=== PATIENT | male | born 1935 | race Caucasian/White ===

== ENCOUNTER → 2016-06-13 | Outpatient (CLI) | payer MEDICARE ==
[2016-06-13 15:07] LABS: Anisocytosis Moderate; CH 36.5; CHCM 33.4; HCT 40.3 % (39.0-53.0); HGB 13.4 gm/dL (13.0-17.5); Hypochromasia Slight; MCH 36.2 pg (25.0-35.0); MCHC 33.2 g/dL (31.0-37.0); MCV 109.1 fL (80.0-100.0); Macrocytosis Marked; Mean Platelet Volume 7.4; Poikilocytosis Slight; RDW 21.1 % (11.5-15.5); WBC 4.2 k/uL (3.8-10.6)
[2016-06-13 15:22] LABS: C Reactive Protein 5.3 mg/L (<10.0); Calcium 9.4 mg/dL (8.4-10.2); Total Bilirubin 0.7 mg/dL (0.2-1.3); Total Protein 6.7 g/dL (6.3-8.2)
[2016-06-13 15:23] LABS: Potassium 5.3 mmol/L (3.5-5.1)
[2016-06-13 15:52] LABS: Erythrocyte Sedimentation Rate 8 mm/hr (0-15)
[2016-06-14 14:06] LABS: Gliadin AB IgA, Deaminated 4 UNITS (<20); Gliadin AB IgG, Deaminated 2 UNITS (<20)
== END | disposition home or self-care (01) ==
LOC: LABWHC1 14:45
PROVIDERS: ATTEND Internal Medicine Gastroenterology
DX: R19.7 Diarrhea, unspecified (principal); R10.9 Unspecified abdominal pain
CPT/HCPCS: 36415; 80053; 83516; 85027; 85652; 86140

== ENCOUNTER 2016-08-02 07:16 | Inpatient (IN) | payer MEDICARE ==
[2016-08-02] MEDS ORDERED: SODIUM CHLORIDE 0.9% 1,000 ML IV STA ×2 (07:34→09:10)
[2016-08-02] MEDS ORDERED: PANTOPRAZOLE 40 MG/10 ML VIAL IVP STA (07:34)
[2016-08-02] MEDS ORDERED: ONDANSETRON 4 MG/2 ML VIAL IVP STA (07:34)
[2016-08-02] MEDS ORDERED: SODIUM CHLORIDE 0.9% 500 ML IV STA (07:34)
--- NOTE | 2016-08-02 07:41 | ED ---
General Adult HPI - General Chief complaint: GI Bleed Stated complaint: blood in stool Time Seen by Provider: 08/02/16 07:33 Source: patient, family, RN notes reviewed, old records reviewed Mode of arrival: wheelchair Limitations: no limitations - History of Present Illness Initial comments: This is a 80-year-old male to the ER for evaluation of GI bleed. Patient is not on blood thinners. Patient has history of diverticulosis. Patient states history of abdominal pain as well. Patient felt weak and lightheaded dizzy also if he would pass out. He has had 3-4 bloody bowel movements prior to ER arrival. Patient also complaining of epigastric abdominal pain. - Related Data Home Medications Medication Instructions Recorded Confirmed Allopurinol [Zyloprim] 300 mg PO HS 09/01/13 08/02/16 Hydroxyurea [Hydrea] 500 mg PO QID 09/01/13 08/02/16 hydrALAZINE HCL [Apresoline] 25 mg PO BID 09/01/13 08/02/16 traMADol HCl [Ultram] 50 mg PO Q8H PRN 04/04/15 08/02/16 Cholecalciferol [Vitamin D3] 2,000 unit PO DAILY 08/20/15 08/02/16 Aspirin 325 mg PO BID 08/02/16 08/02/16 Loperamide [Imodium] 2 mg PO DAILY PRN 08/02/16 08/02/16 Allergies Allergy/AdvReac Type Severity Reaction Status Date / Time venom-honey bee Allergy Anaphylaxis Verified 08/02/16 08:31 [bee venom (honey bee)] Review of Systems ROS Statement: Those systems with pertinent positive or pertinent negative responses have been documented in the HPI. ROS Other: All systems not noted in ROS Statement are negative. Past Medical History Past Medical History: Cancer, CVA/TIA, Diabetes Mellitus, Hyperlipidemia, Hypertension, Osteoarthritis (OA), Sleep Apnea/CPAP/BIPAP Additional Past Medical History / Comment(s): gout, TIA x 3, irregular heart rate, numbness of hands and feet, obstructive sleep apnea status post uvuloplasty, rheumatic fever hx, rt carpal tunnel, thrombocytosis History of Any Multi-Drug Resistant Organisms: None Reported Past Surgical History: Adenoidectomy, Hernia Repair, Joint Replacement, Tonsillectomy Additional Past Surgical History / Comment(s): kidney donor-rt, kiesha hip replacement, uvuloplasty, left carotid stent, bilateral inguinal hernia repair Past Anesthesia/Blood Transfusion Reactions: No Reported Reaction Past Psychological History: No Psychological Hx Reported Smoking Status: Unknown if ever smoked Past Alcohol Use History: Daily Past Drug Use History: None Reported - Past Family History Father Additional Family Medical History / Comment(s): Father at 80 from stroke Mother Additional Family Medical History / Comment(s): Mother at age 55 from polycystic kidney disease. Brother(s) Additional Family Medical History / Comment(s): Patient has 1 brother with multiple medical problems including diabetes. Sister(s) Additional Family Medical History / Comment(s): Patient has one sister that at age 60 from kidney failure due to polycystic kidney disease. Daughter(s) Additional Family Medical History / Comment(s): Patient has one daughter with no major medical problems. Son(s) Additional Family Medical History / Comment(s): Patient has 5 sons. 2 at premature . One while skiing from a myocardial infarction at age 32. One son is alive with no major medical problems. General Exam Limitations: no limitations General appearance: alert, in no apparent distress, anxious, in distress Head exam: Present: atraumatic, normocephalic, normal inspection Eye exam: Present: normal appearance, PERRL, EOMI. Absent: scleral icterus, conjunctival injection, periorbital swelling ENT exam: Present: normal exam, mucous membranes moist Neck exam: Present: normal inspection. Absent: tenderness, meningismus, lymphadenopathy Respiratory exam: Present: normal lung sounds bilaterally. Absent: respiratory distress, wheezes, rales, rhonchi, stridor Cardiovascular Exam: Present: normal rhythm, tachycardia, normal heart sounds. Absent: systolic murmur, diastolic murmur, rubs, gallop, clicks GI/Abdominal exam: Present: soft, normal bowel sounds. Absent: distended, tenderness, guarding, rebound, rigid Extremities exam: Present: normal inspection, full ROM, normal capillary refill. Absent: tenderness, pedal edema, joint swelling, calf tenderness Back exam: Present: normal inspection Neurological exam: Present: alert, oriented X3, CN II-XII intact Psychiatric exam: Present: normal affect, normal mood Skin exam: Present: warm, dry, intact, normal color. Absent: rash Course Vital Signs 08/02/16 08/02/16 08/02/16 07:23 08:00 08:45 Temperature 98.2 F 97.2 F L 97.2 F L Pulse Rate 115 H 100 104 H Respiratory 20 16 16 Rate Blood Pressure 96/52 122/61 138/64 O2 Sat by Pulse 100 100 100 Oximetry 08/02/16 09:00 Temperature Pulse Rate 100 Respiratory 16 Rate Blood Pressure 132/60 O2 Sat by Pulse 99 Oximetry - Reevaluation(s) Reevaluation #1: 08/02/16 10:02 Patient is feeling better with fluid hydration, states he does have history of diverticulosis and diverticulitis EKG Findings - EKG Comments: EKG Findings:: Shows sinus tachycardia rate of 103, NM 136, QRS 80, QTC 471 Medical Decision Making - Medical Decision Making 80 mailed ER for evaluation GI bleed. Patient has positive giblet with tachycardia, lightheadedness weakness and near syncopal event. Patient will be admitted with 3 having 3 episodes of bright red blood, patient is to be transfused and will admit to ICU for hemodynamic monitoring, GI evaluation - Lab Data Result diagrams: 08/02/16 07:50 08/02/16 07:50 Lab Results 08/02/16 08/02/16 08/02/16 Range/Units 07:50 07:50 07:50 WBC 2.8 L (3.8-10.6) k/uL RBC 2.51 L (4.30-5.90) m/uL Hgb 9.0 L D (13.0-17.5) gm/dL Hct 29.3 L (39.0-53.0) % MCV 116.5 H D (80.0-100.0) fL MCH 35.9 H (25.0-35.0) pg MCHC 30.9 L (31.0-37.0) g/dL RDW 23.0 H (11.5-15.5) % Plt Count 682 H (150-450) k/uL Neutrophils % 76 % Lymphocytes % 15 % Monocytes % 4 % Eosinophils % 0 % Basophils % 1 % Neutrophils # 2.1 (1.3-7.7) k/uL Lymphocytes # 0.4 L (1.0-4.8) k/uL Monocytes # 0.1 (0-1.0) k/uL Eosinophils # 0.0 (0-0.7) k/uL Basophils # 0.0 (0-0.2) k/uL Manual Slide Review Performed Poikilocytosis Slight Anisocytosis Moderate Macrocytosis Marked PT (9.0-12.0) sec INR (<1.1) APTT (22.0-30.0) sec Sodium 141 (137-145) mmol/L Potassium 5.4 H (3.5-5.1) mmol/L Chloride 111 H (98-107) mmol/L Carbon Dioxide 21 L (22-30) mmol/L Anion Gap 9 mmol/L BUN 72 H (9-20) mg/dL Creatinine 1.30 H (0.66-1.25) mg/dL Est GFR (MDRD) Af Amer >60 (>60 ml/min/1.73 sqM) Est GFR (MDRD) Non-Af 53 (>60 ml/min/1.73 sqM) Glucose 218 H (74-99) mg/dL Plasma Lactic Acid Ganesh (0.7-2.0) mmol/L Calcium 8.6 (8.4-10.2) mg/dL Magnesium 2.0 (1.6-2.3) mg/dL Total Bilirubin 0.7 (0.2-1.3) mg/dL AST 13 L (17-59) U/L ALT 17 L (21-72) U/L Alkaline Phosphatase 31 L (38-126) U/L Total Creatine Kinase <20 L (55-170) U/L CK-MB (CK-2) 0.3 (0.0-2.4) ng/mL CK-MB (CK-2) Rel Index 0.0 Troponin I <0.012 (0.000-0.034) ng/mL Total Protein 4.9 L (6.3-8.2) g/dL Albumin 2.9 L (3.5-5.0) g/dL Blood Type Blood Type Recheck Antibody Screen Crossmatch Spec Expiration Date 08/02/16 08/02/16 08/02/16 Range/Units 07:50 07:50 07:50 WBC (3.8-10.6) k/uL RBC (4.30-5.90) m/uL Hgb (13.0-17.5) gm/dL Hct (39.0-53.0) % MCV (80.0-100.0) fL MCH (25.0-35.0) pg MCHC (31.0-37.0) g/dL RDW (11.5-15.5) % Plt Count (150-450) k/uL Neutrophils % % Lymphocytes % % Monocytes % % Eosinophils % % Basophils % % Neutrophils # (1.3-7.7) k/uL Lymphocytes # (1.0-4.8) k/uL Monocytes # (0-1.0) k/uL Eosinophils # (0-0.7) k/uL Basophils # (0-0.2) k/uL Manual Slide Review Poikilocytosis Anisocytosis Macrocytosis PT 11.9 (9.0-12.0) sec INR 1.2 (<1.1) APTT 22.1 (22.0-30.0) sec Sodium (137-145) mmol/L Potassium (3.5-5.1) mmol/L Chloride (98-107) mmol/L Carbon Dioxide (22-30) mmol/L Anion Gap mmol/L BUN (9-20) mg/dL Creatinine (0.66-1.25) mg/dL Est GFR (MDRD) Af Amer (>60 ml/min/1.73 sqM) Est GFR (MDRD) Non-Af (>60 ml/min/1.73 sqM) Glucose (74-99) mg/dL Plasma Lactic Acid Ganesh 2.6 H* (0.7-2.0) mmol/L Calcium (8.4-10.2) mg/dL Magnesium (1.6-2.3) mg/dL Total Bilirubin (0.2-1.3) mg/dL AST (17-59) U/L ALT (21-72) U/L Alkaline Phosphatase (38-126) U/L Total Creatine Kinase (55-170) U/L CK-MB (CK-2) (0.0-2.4) ng/mL CK-MB (CK-2) Rel Index Troponin I (0.000-0.034) ng/mL Total Protein (6.3-8.2) g/dL Albumin (3.5-5.0) g/dL Blood Type A Positive Blood Type Recheck No Antibody Screen NEGATIVE Crossmatch See Detail Spec Expiration Date 08/05/2016 2378 - Radiology Data Radiology results: report reviewed (CT abdomen and pelvis is likely for diverticulitis), image reviewed Critical Care Time Critical Care Time: Yes Total Critical Care Time: 31 Disposition Clinical Impression: Lower gastrointestinal hemorrhage, Gastrointestinal hemorrhage, Diverticulitis , Anemia Disposition: ADMITTED IP TO THIS [facility] Condition: Serious Referrals: Luciana Ayala MD [Primary Care Provider] - 1-2 days
[2016-08-02 08:24] LABS: ALT 17 U/L (21-72); AST 13 U/L (17-59); Alkaline Phosphatase 31 U/L (38-126); Anion Gap 9 mmol/L; Blood Urea Nitrogen 72 mg/dL (9-20); Calcium 8.6 mg/dL (8.4-10.2); Carbon Dioxide 21 mmol/L (22-30); Chloride 111 mmol/L (98-107); Glucose 218 mg/dL (74-99); INR 1.2 (<1.1); Non-African American GFR(MDRD) 53 (>60 ml/min/1.73 sqM); Potassium 5.4 mmol/L (3.5-5.1); Prothrombin Time 11.9 sec (9.0-12.0); Sodium 141 mmol/L (137-145); Total Bilirubin 0.7 mg/dL (0.2-1.3); Total Protein 4.9 g/dL (6.3-8.2)
[2016-08-02 08:30] LABS: Partial Thromboplastin Time 22.1 sec (22.0-30.0)
[2016-08-02 08:33] LABS: Creatine Kinase <20 U/L (55-170)
[2016-08-02 08:46] LABS: Creatine Kinase MB 0.3 ng/mL (0.0-2.4); Troponin I <0.012 ng/mL (0.000-0.034)
[2016-08-02 08:58] LABS: Anisocytosis Moderate; Basophils % (A) 1 %; CH 38.6; CHCM 33.2; Eosinophils % (A) 0 %; HCT 29.3 % (39.0-53.0); HDW 3.46; Luc % (Auto) 4; Lymphocytes # (A) 0.4 k/uL (1.0-4.8); Lymphocytes % (A) 15 %; MCH 35.9 pg (25.0-35.0); MCHC 30.9 g/dL (31.0-37.0); Macrocytosis Marked; Mean Platelet Volume 7.8; Monocytes # (A) 0.1 k/uL (0-1.0); Monocytes % (A) 4 %; Neutrophils # (A) 2.1 k/uL (1.3-7.7); Neutrophils % (A) 76 %; Poikilocytosis Slight; RBC 2.51 m/uL (4.30-5.90); WBC 2.8 k/uL (3.8-10.6); WBC (Perox) 2.85
[2016-08-02 09:07] LABS: MCV 116.5 fL (80.0-100.0)
[2016-08-02] MEDS ORDERED: RX INFO: IV CONTRAST WAS GIVEN 1 EACH MISC MISCELLANE PRN (09:09)
[2016-08-02 09:31] LABS: Manual Review Performed
--- NOTE | 2016-08-02 09:47 | CT ---
EXAMINATION TYPE: CT abdomen pelvis wo con DATE OF EXAM: 08/02/2016 COMPARISON: NONE INDICATION: Patient complains of periumbilical and bloody stools. DLP: 662.8 mGycm, Automated exposure control for dose reduction was used. CONTRAST: None Study performed without Oral Contrast TECHNIQUE: Axial images were obtained from above the diaphragm to the pubic rami in the axial plane a t 5 mm thick sections. Reconstructed images are reviewed on the computer in the coronal plane. FINDINGS: Limited CT sections are obtained the lung bases. The lung bases are clear. CT ABDOMEN: Liver: Normal Spleen: Normal Pancreas: There is fatty infiltration of the pancreas. Adrenal glands: The adrenal glands are normal. Gallbladder: Normal Kidneys: There is been a prior right nephrectomy. Left kidney: No masses are evident. No hydronephros is is present. No cysts are present. Aorta: Vascular calcification is within the aorta. Inferior vena cava: Normal. CT PELVIS: Bilateral hip prostheses causing limitation in the inferior portion of the pelvis. Loops of bowel within the abdomen and pelvis are normal. Diverticular changes are within the sigm oid colon. Diverticula are identified within the distal descending colon. Some minimal inflammatory c hange may be adjacent to the distal descending colon sigmoid colon junction and a diverticulum. Mild left diverticulitis may be present. Appendix: Normal as visualized. Urinary bladder: Normal. Genitourinary structures: Prostate is somewhat prominent. There is limitation due to beam hardening a rtifact from bilateral hip prostheses. Osseous structures: No suspicious lytic or sclerotic lesions. Facet hypertrophy is present. Degenerat ana lilia disc changes are present. IMPRESSIONS: 1. Diverticulosis. Some mild diverticulitis at the descending colon sigmoid colon junction may be pr esent. Correlate with symptoms. 2. Prior right nephrectomy for kidney donation.
[2016-08-02] MEDS ORDERED: LEVOFLOXACIN 750MG-D5W PMX 750 MG in DEXTROSE/WATER 1 150ML.BAG IVPB STA (09:54)
[2016-08-02] MEDS ORDERED: metroNIDAZOLE-NS PMX 500 MG in SALINE 1 100ML.BAG IVPB STA (09:54)
[2016-08-02] MEDS ORDERED: MORPHINE SULFATE 4 MG/ML SYRINGE IVP STA (09:57)
[2016-08-02] MEDS ORDERED: ONDANSETRON 4 MG/2 ML VIAL IVP PRN (09:57)
[2016-08-02 11:16] LABS: Glucose,Whole Blood 151 mg/dL (75-99)
[2016-08-02] MEDS: INSULIN LISPRO (humaLOG) 300 UNIT/3 ML VIAL SQ SCH ×4 (12:44→20:45)
[2016-08-02 12:52] LABS: Hemoglobin A1C 5.3 % (4.2-6.1)
[2016-08-02 13:35] LABS: Potassium 5.1 mmol/L (3.5-5.1)
[2016-08-02 13:54] LABS: Magnesium 2.1 mg/dL (1.6-2.3)
[2016-08-02 13:55] LABS: Anisocytosis Marked; Basophils % (A) 1 %; CH 36.8; CHCM 32.2; Eosinophils % (A) 2 %; HCT 26.1 % (39.0-53.0); HDW 3.33; HGB 8.1 gm/dL (13.0-17.5); Hypochromasia Slight; Luc # (Auto) 0.07; Luc % (Auto) 3; Lymphocytes # (A) 0.3 k/uL (1.0-4.8); Lymphocytes % (A) 15 %; MCH 35.4 pg (25.0-35.0); MCHC 30.9 g/dL (31.0-37.0); MCV 114.5 fL (80.0-100.0); Macrocytosis Marked; Mean Platelet Volume 7.8; Monocytes # (A) 0.1 k/uL (0-1.0); Monocytes % (A) 5 %; Neutrophils # (A) 1.5 k/uL (1.3-7.7); Neutrophils % (A) 75 %; RBC 2.28 m/uL (4.30-5.90); RDW 24.7 % (11.5-15.5); WBC 2.1 k/uL (3.8-10.6); WBC (Perox) 2.17
[2016-08-02 14:21] LABS: Manual Review Performed
[2016-08-02] MEDS: metroNIDAZOLE-NS PMX 500 MG in SALINE 1 100ML.BAG IVPB SCH ×2 (15:51→23:29)
[2016-08-02] MEDS ORDERED: LOPERAMIDE 2 MG CAP PO PRN (16:33)
[2016-08-02] MEDS ORDERED: traMADol 50 MG TAB PO PRN (16:33)
--- NOTE | 2016-08-02 16:44 | P.HPIM ---
History of Present Illness H&P Date: 08/02/16 Chief Complaint: Acute GI bleed, acute blood loss anemia, abdominal pain and diverticulitis, 80-year-old male one of Dr. Ayala's patient with past medical history of diabetes, hypertension, hyperlipidemia, TIA and CVA 3 and history of thrombocytosis patient has been on hydrea, patient has been doing well until around 2:00 after midnight when he woke up with slight abdominal discomfort which has been ongoing for the last 2 weeks become much worse last night ended up going to the bathroom and having bowel movement with slight diarrhea and what sounds to believe it's bright red blood per rectum at the time. Half hour later patient had another one at this time had more bleeding and an hour later had a third bowel movement this time he had more blood and more blood clot passing with worsening increase abdominal pain in the left lower quadrant. Patient ended up coming to the emergency department at [facility] where was seen and evaluated was diagnosed with acute gastrointestinal bleed most likely lower GI bleed and acute blood loss anemia started on blood transfusion processes patient was processed to be admitted to the intensive care unit will consult gas and neurology. Started patient on IV antibiotic for diverticulitis between [facility] and [facility]. Patient blood sugar has been high lately he was post to be on Tradjenta which apparently patient is. Patient will be started on Accu-Chek with sliding scales coverage. No further abdominal pain no nausea vomiting and no bloody or tarry stool since cc arrived to the emergency room. Review of Systems Constitutional: Reports anorexia, Reports fatigue, Reports lethargy, Reports malaise, Reports weakness, Denies as per HPI, Denies chills, Denies chronic headaches, Denies chronic pain, Denies daytime sleepiness, Denies fever, Denies night sweats, Denies poor appetite, Denies sweats, Denies weight gain, Denies weight loss Eyes: bilateral as per HPI Ears: bilateral: decreased hearing Ears, nose, mouth and throat: Reports ant. neck pain, Reports nasal congestion, Reports sinus pressure, Denies as per HPI, Denies bleeding gums, Denies dental pain, Denies dysphagia, Denies epistaxis, Denies headache, Denies hoarseness, Denies mouth pain, Denies nasal discharge, Denies neck fullness/pressure, Denies neck lump, Denies nose pain, Denies odynophagia, Denies post-nasal drip, Denies sinus pain, Denies swelling in mouth, Denies swelling in throat, Denies sore throat, Denies vertigo, Denies voice changes Cardiovascular: Reports dyspnea on exertion, Reports lightheadedness, Reports orthopnea, Reports palpitations, Denies as per HPI, Denies chest pain, Denies claudication, Denies decreased exercise tolerance, Denies edema, Denies high blood pressure, Denies irregular heart beat, Denies leg edema, Denies paroxysmal nocturnal dyspnea, Denies phlebitis, Denies rapid heart beat, Denies shortness of breath, Denies syncope Respiratory: Reports congestion, Reports dyspnea, Denies as per HPI, Denies cough, Denies cough with sputum, Denies excessive sputum, Denies hemoptysis, Denies home oxygen, Denies pain, Denies pain on inspiration, Denies pleurisy, Denies respiratory infections, Denies sleep apnea, Denies snoring, Denies wheezing Gastrointestinal: Reports abdominal pain, Reports bloating, Reports dyspepsia, Reports indigestion, Reports nausea, Denies as per HPI, Denies belching, Denies BRBPR, Denies change in bowel habits, Denies coffee ground emesis, Denies constipation, Denies diarrhea, Denies early satiety, Denies excessive gas, Denies heartburn, Denies hematemesis, Denies hematochezia, Denies jaundice, Denies lactose intolerance, Denies loss of appetite, Denies melena, Denies vomiting Genitourinary: Reports urinary frequency, Reports urinary hesitancy, Denies as per HPI, Denies decreased libido, Denies difficulties fathering child, Denies discharge, Denies dysuria, Denies erectile dysfunction, Denies flank pain, Denies genital pain, Denies genital sores, Denies hematuria, Denies impotence, Denies incontinence, Denies kidney stones, Denies nocturia, Denies polyuria, Denies testicular lump, Denies testicular pain, Denies urinary retention Musculoskeletal: Reports morning stiffness, Reports muscle cramps, Reports myalgias, Reports neck pain, Denies as per HPI, Denies arm numbness/tingling, Denies atrophy, Denies fractures, Denies frequent falls, Denies gait dysfunction , Denies hot joints, Denies leg numbness/tingling, Denies limitation of motion, Denies loss of height, Denies low back pain, Denies muscle weakness, Denies neck stiffness, Denies prior amputations, Denies redness of joints, Denies shooting arm pain, Denies shooting leg pain Musculoskeletal: bilateral: ankle pain Integumentary: Reports rash, Denies as per HPI, Denies acne, Denies boils, Denies brittle nails, Denies change in hair/nails, Denies color changes, Denies darkening of skin, Denies depigmentation, Denies dryness, Denies foot/leg ulcers , Denies growths, Denies hirsutism, Denies lesions, Denies onychomycosis, Denies pruritus, Denies sores, Denies striae, Denies unusual bruising, Denies wounds Neurological: Reports ataxia, Denies as per HPI, Denies aphasia, Denies balance difficulties, Denies burning pain, Denies change in mentation, Denies change in smell/taste, Denies change in speech, Denies confusion, Denies convulsions, Denies double vision, Denies gait dysfunction, Denies head injury, Denies headaches, Denies hearing difficulties, Denies lack of coordination, Denies loss of vision, Denies memory loss, Denies migraines, Denies motor disturbance, Denies numbness, Denies paralysis, Denies paresthesias, Denies seizures, Denies sensory deficit, Denies spasticity, Denies syncope, Denies tic, Denies tingling , Denies transient paralysis, Denies tremors, Denies vertigo, Denies weakness, Denies visual changes Psychiatric: Reports anhedonia, Reports depression, Reports mood swings, Denies as per HPI, Denies anxiety, Denies anxiety attacks, Denies change in appetite, Denies change in libido, Denies change in sleep habits, Denies confusion, Denies difficulty concentrating, Denies disorientation, Denies hallucinations, Denies hopelessness, Denies hypersomnia, Denies insomnia, Denies irritability, Denies memory loss, Denies paranoia, Denies sadness/tearfulness, Denies sleep disturbances, Denies suicidal ideation Endocrine: Reports cold intolerance, Reports high blood sugars, Reports polyuria Hematologic/Lymphatic: Reports easy bleeding, Reports easy bruising, Denies as per HPI, Denies lymphadenopathy, Denies lymphedema, Denies thrombophilia Allergic/Immunologic: Reports allergic rhinitis, Denies as per HPI, Denies anaphylaxis, Denies angioedema, Denies gluten intolerance, Denies persistent infections, Denies seasonal allergies, Denies urticaria, Denies wheezing Past Medical History Past Medical History: Cancer, CVA/TIA, Diabetes Mellitus, Eye Disorder, Hyperlipidemia, Hypertension, Osteoarthritis (OA), Sleep Apnea/CPAP/BIPAP Additional Past Medical History / Comment(s): Past lower GI bleed, diverticular dx, thrombocytosis-sees Dr. 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 History of Any Multi-Drug Resistant Organisms: None Reported Past Surgical History: Adenoidectomy, Hernia Repair, Joint Replacement, Orthopedic Surgery, Tonsillectomy Additional Past Surgical History / Comment(s): R kidney donor, kiesha hip replacement, L hand trigger finger sx, uvuloplasty, left carotid stent, bilateral inguinal hernia repair, deviated septum repair, colonoscopy, R cataract removal with lens-now has membrane problem and plugged R tear duct. Past Anesthesia/Blood Transfusion Reactions: No Reported Reaction Smoking Status: Never smoker - Past Family History Father Family Medical History: CVA/TIA Additional Family Medical History / Comment(s): Father at 80 from stroke Mother Family Medical History: Renal Disease Additional Family Medical History / Comment(s): Mother at age 55 from polycystic kidney disease. Brother(s) Additional Family Medical History / Comment(s): Patient has 1 brother with multiple medical problems including diabetes. Sister(s) Family Medical History: Renal Disease Additional Family Medical History / Comment(s): Patient has one sister that at age 60 from kidney failure due to polycystic kidney disease. Daughter(s) Family Medical History: No Reported History Additional Family Medical History / Comment(s): Patient has one daughter with no major medical problems. Son(s) Additional Family Medical History / Comment(s): Patient has 5 sons. 2 at premature . One while skiing from a myocardial infarction at age 32. One son is alive with no major medical problems. Medications and Allergies Home Medications Medication Instructions Recorded Confirmed Type Allopurinol [Zyloprim] 300 mg PO HS 09/01/13 08/02/16 History Hydroxyurea [Hydrea] 500 mg PO QID 09/01/13 08/02/16 History hydrALAZINE HCL [Apresoline] 25 mg PO BID 09/01/13 08/02/16 History traMADol HCl [Ultram] 50 mg PO Q8H PRN 04/04/15 08/02/16 History Cholecalciferol [Vitamin D3] 2,000 unit PO DAILY 08/20/15 08/02/16 History Aspirin 325 mg PO BID 08/02/16 08/02/16 History Loperamide [Imodium] 2 mg PO DAILY PRN 08/02/16 08/02/16 History Allergies Allergy/AdvReac Type Severity Reaction Status Date / Time venom-honey bee Allergy Anaphylaxis Verified 08/02/16 08:31 [bee venom (honey bee)] Physical Exam Vitals: Vital Signs Temp Pulse Resp BP Pulse Ox 08/02/16 16:10 82 19 140/56 98 08/02/16 16:00 97.8 F 78 20 134/56 98 08/02/16 15:50 80 24 134/56 99 08/02/16 15:40 79 16 134/56 99 08/02/16 15:30 78 14 120/58 99 08/02/16 15:20 81 16 120/58 100 08/02/16 15:10 77 14 120/58 100 08/02/16 15:00 80 12 127/57 99 08/02/16 14:50 83 16 127/57 99 08/02/16 14:40 81 21 133/57 08/02/16 14:30 87 17 133/57 98 08/02/16 14:20 90 21 133/57 100 08/02/16 14:10 89 18 133/57 99 08/02/16 14:00 100 20 134/52 98 08/02/16 13:50 90 15 134/52 99 08/02/16 13:40 89 16 141/59 08/02/16 13:30 86 12 141/59 98 08/02/16 13:20 88 20 141/59 100 08/02/16 13:10 83 20 141/59 100 08/02/16 13:00 86 14 115/51 99 08/02/16 12:50 92 16 115/51 98 08/02/16 12:43 97.9 F 87 14 115/51 98 08/02/16 12:40 88 20 114/55 87 L 08/02/16 12:30 86 20 114/55 99 08/02/16 12:20 81 12 114/55 99 08/02/16 12:10 84 19 134/60 86 L 08/02/16 12:00 85 21 134/60 98 08/02/16 11:50 84 20 134/60 99 08/02/16 11:40 97.8 F 86 17 134/60 100 08/02/16 11:30 97.8 F 89 21 121/60 99 08/02/16 11:20 91 14 121/60 99 08/02/16 11:10 89 14 98 08/02/16 11:09 97.8 F 88 14 99 08/02/16 11:03 94 19 137/64 100 08/02/16 11:02 97.8 F 91 14 121/60 98 08/02/16 10:43 97.7 F 92 16 139/66 99 08/02/16 10:32 97.8 F 89 14 121/60 98 08/02/16 10:22 98.1 F 96 18 144/65 08/02/16 09:00 100 16 132/60 99 08/02/16 08:45 97.2 F L 104 H 16 138/64 100 08/02/16 08:00 97.2 F L 100 16 122/61 100 08/02/16 07:23 98.2 F 115 H 20 96/52 100 Intake and Output 08/02/16 08/02/16 08/02/16 06:59 14:59 22:59 Intake Total 780 200 Output Total 1250 1600 Balance -470 -1400 Intake: IV 220 200 Sodium Chloride 0.9% 1, 220 200 000 ml @ 100 mls/hr IV . Q10H STA Rx#:[id number] Intake, IV Titration 250 Amount Levofloxacin 750Mg-D5w 150 Pmx 750 mg In Dextrose/ Water 1 150ml.bag @ 100 mls/hr IVPB Q24HR [facility] Rx# :[id number] metroNIDAZOLE-NS PMX 500 100 mg In Saline 1 100ml.bag @ 100 mls/hr IVPB Q8HR JS Rx#:[id number] Blood Product 310 Rc As-1 Unit 310 [id number] Output: Urine 1250 1600 Other: Voiding Method Urinal Urinal Weight 92.4 kg Patient Weight 08/03/16 06:59 Weight 92.4 kg - Constitutional General appearance: no average body habitus, cooperative, no disheveled, no mild distress, no morbidly obese, no acute distress, no obese, no severe distress, no thin - EENT Eyes: no abnormal pupil, no anicteric sclerae, no disc margins sharp, no edentulous, no EOMI, no PERRLA, no fundus normal, no photophobia, no dentition normal, no poor dentition, no ptosis, no scleral icterus, normal appearance ENT: hard of hearing, no hearing grossly normal, no NA/AT, normal oropharynx, no other, no pharyngeal erythema, no thrush, no tonsillar exudates, no tonsillar swelling Ears: bilateral: normal - Neck Neck: no lymphadenopathy, normal ROM, no other, no rigidity, no stridor, no thyromegaly Carotids: bilateral: upstroke normal Thyroid: bilateral: normal size - Respiratory Respiratory: bilateral: CTA, diminished - Cardiovascular Rhythm: regular Heart sounds: normal: S1, S2 Abnormal Heart Sounds: systolic murmur, S3 Gallop - Gastrointestinal General gastrointestinal: no absent bowel sounds, decreased bowel sounds, no distended, no hepatomegaly, no hyperactive bowel sounds, normal bowel sounds, no organomegaly, no rigid, no scaphoid, soft, splenomegaly, no tenderness, no umbilical hernia, no ventral hernia - Integumentary Integumentary: no calor, no cellulitis, no cyanotic, no decreased turgor, no flushed, jaundiced, normal, no normal turgor, pale, rash, no ulcer - Neurologic Neurologic: CNII-XII intact - Musculoskeletal Musculoskeletal: gait normal, generalized weakness, strength equal bilaterally, no right sided weakness, no left sided weakness - Psychiatric Psychiatric: A&O x's 3, appropriate affect, no intact judgment & insight Results CBC & Chem 7: 08/02/16 13:01 08/02/16 13:01 Labs: Abnormal Lab Results - Last 24 Hours (Table) 08/02/16 08/02/16 08/02/16 Range/Units 07:50 07:50 07:50 WBC 2.8 L (3.8-10.6) k/uL RBC 2.51 L (4.30-5.90) m/uL Hgb 9.0 L D (13.0-17.5) gm/dL Hct 29.3 L (39.0-53.0) % MCV 116.5 H D (80.0-100.0) fL MCH 35.9 H (25.0-35.0) pg MCHC 30.9 L (31.0-37.0) g/dL RDW 23.0 H (11.5-15.5) % Plt Count 682 H (150-450) k/uL Lymphocytes # 0.4 L (1.0-4.8) k/uL Potassium 5.4 H (3.5-5.1) mmol/L Chloride 111 H (98-107) mmol/L Carbon Dioxide 21 L (22-30) mmol/L BUN 72 H (9-20) mg/dL Creatinine 1.30 H (0.66-1.25) mg/dL Glucose 218 H (74-99) mg/dL POC Glucose (mg/dL) (75-99) mg/dL Plasma Lactic Acid Ganesh (0.7-2.0) mmol/L AST 13 L (17-59) U/L ALT 17 L (21-72) U/L Alkaline Phosphatase 31 L (38-126) U/L Total Creatine Kinase <20 L (55-170) U/L Total Protein 4.9 L (6.3-8.2) g/dL Albumin 2.9 L (3.5-5.0) g/dL Crossmatch 08/02/16 08/02/16 08/02/16 Range/Units 07:50 07:50 11:13 WBC (3.8-10.6) k/uL RBC (4.30-5.90) m/uL Hgb (13.0-17.5) gm/dL Hct (39.0-53.0) % MCV (80.0-100.0) fL MCH (25.0-35.0) pg MCHC (31.0-37.0) g/dL RDW (11.5-15.5) % Plt Count (150-450) k/uL Lymphocytes # (1.0-4.8) k/uL Potassium (3.5-5.1) mmol/L Chloride (98-107) mmol/L Carbon Dioxide (22-30) mmol/L BUN (9-20) mg/dL Creatinine (0.66-1.25) mg/dL Glucose (74-99) mg/dL POC Glucose (mg/dL) 151 H (75-99) mg/dL Plasma Lactic Acid Ganesh 2.6 H* (0.7-2.0) mmol/L AST (17-59) U/L ALT (21-72) U/L Alkaline Phosphatase (38-126) U/L Total Creatine Kinase (55-170) U/L Total Protein (6.3-8.2) g/dL Albumin (3.5-5.0) g/dL Crossmatch See Detail 08/02/16 Range/Units 13:01 WBC 2.1 L (3.8-10.6) k/uL RBC 2.28 L (4.30-5.90) m/uL Hgb 8.1 L (13.0-17.5) gm/dL Hct 26.1 L (39.0-53.0) % MCV 114.5 H (80.0-100.0) fL MCH 35.4 H (25.0-35.0) pg MCHC 30.9 L (31.0-37.0) g/dL RDW 24.7 H (11.5-15.5) % Plt Count 570 H (150-450) k/uL Lymphocytes # 0.3 L (1.0-4.8) k/uL Potassium (3.5-5.1) mmol/L Chloride (98-107) mmol/L Carbon Dioxide (22-30) mmol/L BUN (9-20) mg/dL Creatinine (0.66-1.25) mg/dL Glucose (74-99) mg/dL POC Glucose (mg/dL) (75-99) mg/dL Plasma Lactic Acid Ganesh (0.7-2.0) mmol/L AST (17-59) U/L ALT (21-72) U/L Alkaline Phosphatase (38-126) U/L Total Creatine Kinase (55-170) U/L Total Protein (6.3-8.2) g/dL Albumin (3.5-5.0) g/dL Crossmatch Thrombosis Risk Factor Assmnt - DVT/VTE Prophylaxis DVT/VTE Prophylaxis: Mechanical Prophylaxis ordered - Choose All That Apply Any of the Below Risk Factors Present?: Yes Each Factor Represents 1 point: Obesity (BMI >25) Other Risk Factors: Yes Each Risk Factor Represents 2 Points: Malignancy Each Risk Factor Represents 3 Points: Age 75 years or older Other congenital or acquired thrombophilia - If yes, enter type in comment: No Thrombosis Risk Factor Assessment Total Risk Factor Score: 6 Thrombosis Risk Factor Assessment Level: High Risk Assessment and Plan Plan: 1 acute gastrointestinal bleed: Most likely lower GI bleed in origin most likely from diverticulitis. Patient will be on IV antibiotics we'll keep watching for any further bleeding, we'll consult gastroenterology, according to patient had last colonoscopy with Dr. Mary last time 2 years ago with upper gastroscopy the same time. Patient will be continue on GI prophylaxis at this point. 2 acute blood loss anemia: Patient was started on blood transfusion 1 unit of RBC will be transfused repeat hemoglobin after transfusion if below 8 we will do another unit continue to watch his CBC every 8 hours. 3 acute diverticulitis: With worsening left lower quadrant pain mildly elevated blood count and bleeding patient was started on Levaquin and Flagyl whether need to go for another colonoscopy or not to be decided in the next few days hopefully the episode will be treated medically so colonoscopy can be done as an elective procedure in the next few weeks. 4 history of thrombocytosis: Patient has been on Hydrea which will be continue in the next 24 hours. 5 diabetes: Patient has not been on any medication will continue Accu-Chek with sliding scales coverage and whether he is agreeable or not to start him on one of the oral agent when he is more stable. 6 hypertension: Patient has been doing well on hydralazine 25 g twice a day. 7 hyperlipidemia: Was post to be on simvastatin 20 mg a day patient himself off. 8 history of gout: Mostly from using Hydrea on his thrombocytosis patient has been on prophylaxis Zyloprim 300 mg a day resume medication. 9 chronic kidney disease stage II: Continue hydration repeat BUN/creatinine next 24 hours. 10 GI prophylaxis: Patient will be on pantoprazole IV. 11 DVT prophylaxis: Patient will be on knee-high JOSE LUIS hose and Venodyne boots no anticoagulation will be used for now. With status: Full code. Expectation from this admission: Patient in the hospital for more than 2 nights.
--- NOTE | 2016-08-02 17:25 | CONS ---
DATE OF CONSULTATION: 08/02/2016 Hector Esqueda is an 80-year-old male who is known to me and was previously seen in August of 2015. He comes into the ED with a history of abdominal pain. He subsequently felt weak and lightheaded, felt like he was going to pass out. He had 3 or 4 bloody bowel movements and subsequently was seen in the ED. He has a known history of diverticulosis. His past medical history is positive for: 1. CVA. 2. History of obstructive sleep apnea, for which he is on CPAP. 3. History of diabetes mellitus. 4. Hyperlipidemia. 5. Hypertension. 6. Osteoarthritis. 7. 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 8. Status post uvulopalatoplasty. 9. History of rheumatic fever. 10. Right carpal tunnel surgery. 11. History of tonsillectomy. 12. History of being a kidney donor. 13. History of bilateral hip replacement. 14. Left carotid stent. 15. Inguinal hernia repair. FAMILY HISTORY: Father at age 80 from a stroke. Mother at age 55 from polycystic kidney disease. Medications prior to admission were: 1. Loperamide. 2. Aspirin. 3. Zyloprim. 4. Ultram. 5. Apresoline. 6. Hydrea. 7. Vitamin D3. Review of systems is noncontributory. On physical examination, patient is lying in bed. He is in no respiratory distress. He has some pallor. His blood pressure is 115/51, respiratory rate 14, pulse rate 85, temperature 97.9. Oxygen saturation is 99% on room air. HEENT reveals evidence of recent surgery on the left side of his face due to skin lesions. Chest is clear. Cardiovascular system is in S1, S2. ABDOMEN: Soft. There is mild tenderness in the epigastric area. There is no pedal edema. Sodium is 141, potassium 5.4, chloride 111, bicarb 29. BUN 72, creatinine 1.3. White count 2.8, hemoglobin 9, platelet count of 682,000. Venous lactic acid is 2.6. IMPRESSION AT THIS TIME: 1. Acute gastrointestinal bleed. 2. Thrombocytosis. 3. Possible colitis. 4. History of diverticulosis with possible diverticulitis and diverticular bleed. 5. History of anaphylaxis. At this point in time, keep the patient on Protonix, IV fluids. Check hemoglobin. Transfuse as needed. Continue Levaquin and metronidazole, which have been started. Follow electrolytes. Worsening of his BUN and creatinine with hyperkalemia may have been due to GI bleed itself. Depending on how he does, we shall make further changes to his care. He was counseled regarding his condition and this approach.
[2016-08-02] MEDS: HYDROXYUREA 500 MG CAP PO SCH ×2 (18:59→20:40)
[2016-08-02 19:01] LABS: Glucose,Whole Blood 202 mg/dL (75-99)
[2016-08-02] MEDS: MORPHINE SULFATE 4 MG/ML SYRINGE IVP PRN (19:52)
[2016-08-02 20:17] LABS: Anisocytosis Marked; Basophils % (A) 1 %; CH 35.9; Eosinophils % (A) 1 %; HCT 22.3 % (39.0-53.0); HDW 3.62; HGB 7.4 gm/dL (13.0-17.5); Hypochromasia Slight; Luc # (Auto) 0.11; Luc % (Auto) 5; Lymphocytes # (A) 0.4 k/uL (1.0-4.8); Lymphocytes % (A) 19 %; MCH 36.2 pg (25.0-35.0); MCHC 33.1 g/dL (31.0-37.0); Macrocytosis Marked; Mean Platelet Volume 7.5; Monocytes # (A) 0.1 k/uL (0-1.0); Monocytes % (A) 4 %; Neutrophils # (A) 1.7 k/uL (1.3-7.7); Neutrophils % (A) 71 %; Poikilocytosis Slight; RBC 2.03 m/uL (4.30-5.90); RDW 24.5 % (11.5-15.5); WBC 2.4 k/uL (3.8-10.6); WBC (Perox) 2.53
[2016-08-02 20:24] LABS: MCV 109.4 fL (80.0-100.0)
[2016-08-02] MEDS: ALLOPURINOL 300 MG TAB PO SCH (20:40)
[2016-08-02] MEDS: hydrALAZINE HCL 25 MG TAB PO SCH (20:40)
[2016-08-02] MEDS: PANTOPRAZOLE 40 MG/10 ML VIAL IVP SCH (20:40)
[2016-08-02 20:42] LABS: Manual Review Performed; Polychromasia Present
[2016-08-03 05:05] LABS: Anisocytosis Marked; CH 35.5; CHCM 33.7; HCT 23.3 % (39.0-53.0); HDW 4.03; HGB 8.1 gm/dL (13.0-17.5); Hypochromasia Slight; MCH 37.1 pg (25.0-35.0); MCV 106.1 fL (80.0-100.0); Macrocytosis Marked; Mean Platelet Volume 7.5; Poikilocytosis Moderate; RBC 2.19 m/uL (4.30-5.90); WBC 2.4 k/uL (3.8-10.6); WBC (Perox) 2.46
[2016-08-03 05:18] LABS: RDW 25.1 % (11.5-15.5)
[2016-08-03 05:19] LABS: Anion Gap 3 mmol/L; Blood Urea Nitrogen 39 mg/dL (9-20); Calcium 7.9 mg/dL (8.4-10.2); Carbon Dioxide 21 mmol/L (22-30); Chloride 117 mmol/L (98-107); Glucose 96 mg/dL (74-99); Non-African American GFR(MDRD) >60 (>60 ml/min/1.73 sqM); Potassium 4.9 mmol/L (3.5-5.1); Sodium 141 mmol/L (137-145)
[2016-08-03 05:48] LABS: Add Differential Manual Differential
[2016-08-03 05:53] LABS: Manual Review Performed; Myelocytes % 3.5 %; Nucleated Red Blood Cells 1 /100 WBC (0-0); Polychromasia Present; Total Cells Counted 200
[2016-08-03] MEDS: INSULIN LISPRO (humaLOG) 300 UNIT/3 ML VIAL SQ SCH ×4 (06:51→22:44)
[2016-08-03 06:53] LABS: Glucose,Whole Blood 109 mg/dL (75-99)
[2016-08-03] MEDS: HYDROXYUREA 500 MG CAP PO SCH ×4 (07:52→21:43)
[2016-08-03] MEDS: PANTOPRAZOLE 40 MG/10 ML VIAL IVP SCH ×2 (07:52→21:29)
[2016-08-03] MEDS: CHOLECALCIFEROL 1,000 UNIT TAB PO SCH (07:52)
[2016-08-03] MEDS: hydrALAZINE HCL 25 MG TAB PO SCH ×2 (07:52→21:28)
[2016-08-03] MEDS: LEVOFLOXACIN 750MG-D5W PMX 750 MG in DEXTROSE/WATER 1 150ML.BAG IVPB SCH (07:58)
[2016-08-03] MEDS: metroNIDAZOLE-NS PMX 500 MG in SALINE 1 100ML.BAG IVPB SCH ×2 (09:28→16:45)
[2016-08-03] MEDS ORDERED: BISACODYL 5 MG TABLET.DR PO STA (10:56)
--- NOTE | 2016-08-03 11:11 | P.CONS ---
History of Present Illness - Reason for Consult Consult date: 08/03/16 GI bleed Requesting physician: Ehsan Mendoza - History of Present Illness 80-year-old gentleman history of thrombocytosis admitted with painless burgundy red colored rectal bleeding with lightheadedness dizzy. Patient was seen in the GI office a few weeks ago for nonbloody diarrhea and advised loperamide. Patient stated he then became constipated for a few days followed by rectal bleeding. Patient reports minimal abdominal discomfort. Last colonoscopy about 3 years ago; diverticular disease no polyps removed. Denies fever, chills , weight loss, hematemesis or melena. Patient takes a full strength aspirin recently increased to twice daily dosing as well as Hydrea for endocytosis. Scheduled to see local sales systems engineer in September regarding low white blood cell count and persistent elevation of platelets. Drinks 2 Manhattans daily. No NSAIDs. 3-4 bloody bowel movements prior to arrival none last night. Hemoglobin on admission 9.0 presently 8.1. Received 2 units of blood. Hemoglobin in June was 13.4. BUN 72. Review of Systems Constitutional: Denies fever, chills, sweats, weight gain, or loss. HEENT: Negative for migraines, blurred vision or loss, earaches, drainage, tinnitus, oral mucosal lesions, dysphagia, or odynophagia. Cardiac: Hypertension. Hyperlipidemia. Negative for chest pain, arrhythmias, or palpitation. Respiratory: Sleep apnea. Negative for shortness of breath, hemoptysis, cough, or sputum production. Gastrointestinal: See HPI for pertinent findings. Genitourinary: Negative for hematuria, urgency, frequency, polyuria, dysuria, or penile discharge. Musculoskeletal: Negative for muscle aches, swelling, arthritis, and arthralgias. Neurologic: History of CVA TIA. Endocrine: Diabetes. Negative for thyroid problems. Hematologic: Thrombocytosis Skin: Skin carcinoma. Negative for rash or itching. Psychiatric: Negative history for depression and anxiety All systems: negative (See HPI) Past Medical History Past Medical History: Cancer, CVA/TIA, Diabetes Mellitus, Eye Disorder, Hyperlipidemia, Hypertension, Osteoarthritis (OA), Sleep Apnea/CPAP/BIPAP Additional Past Medical History / Comment(s): Past lower GI bleed, diverticular dx, thrombocytosis-sees Dr. 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 History of Any Multi-Drug Resistant Organisms: None Reported Past Surgical History: Adenoidectomy, Hernia Repair, Joint Replacement, Orthopedic Surgery, Tonsillectomy Additional Past Surgical History / Comment(s): R kidney donor, kiesha hip replacement, L hand trigger finger sx, uvuloplasty, left carotid stent, bilateral inguinal hernia repair, deviated septum repair, colonoscopy, R cataract removal with lens-now has membrane problem and plugged R tear duct. Past Anesthesia/Blood Transfusion Reactions: No Reported Reaction Smoking Status: Never smoker - Past Family History Father Family Medical History: CVA/TIA Additional Family Medical History / Comment(s): Father at 80 from stroke Mother Family Medical History: Renal Disease Additional Family Medical History / Comment(s): Mother at age 55 from polycystic kidney disease. Brother(s) Additional Family Medical History / Comment(s): Patient has 1 brother with multiple medical problems including diabetes. Sister(s) Family Medical History: Renal Disease Additional Family Medical History / Comment(s): Patient has one sister that at age 60 from kidney failure due to polycystic kidney disease. Daughter(s) Family Medical History: No Reported History Additional Family Medical History / Comment(s): Patient has one daughter with no major medical problems. Son(s) Additional Family Medical History / Comment(s): Patient has 5 sons. 2 at premature . One while skiing from a myocardial infarction at age 32. One son is alive with no major medical problems. Medications and Allergies Home Medications Medication Instructions Recorded Confirmed Type Allopurinol [Zyloprim] 300 mg PO HS 09/01/13 08/02/16 History Hydroxyurea [Hydrea] 500 mg PO QID 09/01/13 08/02/16 History hydrALAZINE HCL [Apresoline] 25 mg PO BID 09/01/13 08/02/16 History traMADol HCl [Ultram] 50 mg PO Q8H PRN 04/04/15 08/02/16 History Cholecalciferol [Vitamin D3] 2,000 unit PO DAILY 08/20/15 08/02/16 History Aspirin 325 mg PO BID 08/02/16 08/02/16 History Loperamide [Imodium] 2 mg PO DAILY PRN 08/02/16 08/02/16 History Allergies Allergy/AdvReac Type Severity Reaction Status Date / Time venom-honey bee Allergy Anaphylaxis Verified 08/02/16 08:31 [bee venom (honey bee)] Physical Exam Vitals: Vital Signs Temp Pulse Resp BP Pulse Ox 08/03/16 09:00 73 18 126/52 99 08/03/16 08:00 98.4 F 77 18 123/65 99 08/03/16 07:00 82 17 125/54 98 08/03/16 06:00 70 15 115/50 100 08/03/16 05:00 76 17 112/54 99 08/03/16 04:00 97.8 F 67 16 111/47 97 08/03/16 03:00 68 12 100/46 98 08/03/16 02:00 75 16 98/43 98 08/03/16 01:00 71 15 108/47 99 08/03/16 00:14 97.7 F 71 14 101/55 08/03/16 00:00 97.7 F 69 12 92/41 98 08/02/16 23:07 71 13 105/45 96 08/02/16 23:00 81 12 105/45 100 08/02/16 22:01 98 F 73 12 117/65 08/02/16 22:00 68 12 109/45 100 08/02/16 21:50 69 13 109/45 100 08/02/16 21:40 69 14 104/47 99 08/02/16 21:31 98 F 68 17 109/45 08/02/16 21:30 73 17 104/47 100 08/02/16 21:29 98.1 F 76 16 110/47 100 08/02/16 21:21 97.7 F 72 16 117/50 08/02/16 21:20 97.7 F 69 19 117/50 99 08/02/16 21:10 73 18 110/58 97 08/02/16 21:00 73 39 H 110/58 96 08/02/16 20:50 68 23 110/58 99 08/02/16 20:40 75 52 H 110/58 100 08/02/16 20:30 70 16 122/54 100 08/02/16 20:20 70 18 122/54 99 08/02/16 20:10 77 21 114/48 97 08/02/16 20:00 98.0 F 80 20 114/48 96 08/02/16 19:50 74 18 114/48 99 08/02/16 19:40 71 18 114/48 100 08/02/16 19:30 70 20 136/52 100 08/02/16 19:20 103 H 42 H 136/52 90 L 08/02/16 19:10 72 21 140/61 99 08/02/16 19:00 74 17 140/61 98 08/02/16 18:50 73 16 140/61 99 08/02/16 18:40 80 26 H 140/61 97 08/02/16 18:30 75 21 132/58 99 08/02/16 18:20 78 19 132/58 98 08/02/16 18:10 76 21 120/46 100 08/02/16 18:00 79 16 120/46 99 08/02/16 17:50 77 20 120/46 99 08/02/16 17:40 78 18 120/46 99 08/02/16 17:30 83 18 120/54 99 08/02/16 17:20 82 14 120/54 97 08/02/16 17:10 80 20 120/54 98 08/02/16 17:00 80 21 125/54 97 08/02/16 16:50 80 17 125/54 97 08/02/16 16:40 80 20 140/56 87 L 08/02/16 16:30 81 18 140/56 97 08/02/16 16:20 80 16 140/56 99 08/02/16 16:10 82 19 140/56 98 08/02/16 16:00 97.8 F 78 20 134/56 98 08/02/16 15:50 80 24 134/56 99 08/02/16 15:40 79 16 134/56 99 08/02/16 15:30 78 14 120/58 99 06/22/17 15:20 81 16 120/58 100 08/02/16 15:10 77 14 120/58 100 08/02/16 15:00 80 12 127/57 99 08/02/16 14:50 83 16 127/57 99 08/02/16 14:40 81 21 133/57 08/02/16 14:30 87 17 133/57 98 08/02/16 14:20 90 21 133/57 100 08/02/16 14:10 89 18 133/57 99 08/02/16 14:00 100 20 134/52 98 08/02/16 13:50 90 15 134/52 99 08/02/16 13:40 89 16 141/59 08/02/16 13:30 86 12 141/59 98 08/02/16 13:20 88 20 141/59 100 08/02/16 13:10 83 20 141/59 100 08/02/16 13:00 86 14 115/51 99 08/02/16 12:50 92 16 115/51 98 08/02/16 12:43 97.9 F 87 14 115/51 98 08/02/16 12:40 88 20 114/55 87 L 08/02/16 12:30 86 20 114/55 99 08/02/16 12:20 81 12 114/55 99 08/02/16 12:10 84 19 134/60 86 L 08/02/16 12:00 85 21 134/60 98 08/02/16 11:50 84 20 134/60 99 08/02/16 11:40 97.8 F 86 17 134/60 100 08/02/16 11:30 97.8 F 89 21 121/60 99 08/02/16 11:20 91 14 121/60 99 08/02/16 11:10 89 14 98 08/02/16 11:09 97.8 F 88 14 99 08/02/16 11:03 94 19 137/64 100 08/02/16 11:02 97.8 F 91 14 121/60 98 Intake and Output 08/02/16 08/03/16 08/03/16 22:59 06:59 14:59 Intake Total 800 1570 900 Output Total 2325 1575 500 Balance -1525 -5 400 Intake: IV 800 800 150 Sodium Chloride 0.9% 1, 800 800 150 000 ml @ 100 mls/hr IV . Q10H [facility] Rx#:[id number] Intake, IV Titration 100 150 Amount Levofloxacin 750Mg-D5w 150 Pmx 750 mg In Dextrose/ Water 1 150ml.bag @ 100 mls/hr IVPB Q24HR [facility] Rx# :[id number] metroNIDAZOLE-NS PMX 500 100 mg In Saline 1 100ml.bag @ 100 mls/hr IVPB Q8HR [facility] Rx#:[id number] Oral 600 Blood Product 620 Rc As-1 Unit 310 [id number] Other 50 Rc As-1 Unit 50 [id number] Output: Urine 2325 1575 500 Other: Voiding Method Urinal Urinal # Voids 1 1 1 Weight 92.8 kg General appearance: The patient is alert, oriented, in no acute distress. HET: Head is normocephalic and atraumatic. Pupils are equal and reactive. Oropharynx is clear without lesions. Scabbed areas on bilateral cheeks/face Neck: Supple without lymphadenopathy. Trachea midline. Heart: S1 S2. Regular rate and rhythm. Lungs: No crackles or wheezes are heard. Abdomen: Soft, nontender, nondistended with bowel sounds. No peritoneal signs. No palpable organomegaly or masses. Extremities:Normal skin color and turgor. No cyanosis, rash, ulceration, clubbing, or edema. Radial and pedal pulses are 2/4 bilaterally. Neurological: No focal deficits. Strength and sensation are grossly intact.m Results CBC & Chem 7: 08/03/16 04:26 08/03/16 04:26 Labs: Abnormal Lab Results - Last 24 Hours (Table) 08/02/16 08/02/16 08/02/16 Range/Units 07:50 11:13 13:01 WBC 2.1 L (3.8-10.6) k/uL RBC 2.28 L (4.30-5.90) m/uL Hgb 8.1 L (13.0-17.5) gm/dL Hct 26.1 L (39.0-53.0) % MCV 114.5 H (80.0-100.0) fL MCH 35.4 H (25.0-35.0) pg MCHC 30.9 L (31.0-37.0) g/dL RDW 24.7 H (11.5-15.5) % Plt Count 570 H (150-450) k/uL Lymphocytes # 0.3 L (1.0-4.8) k/uL Lymphocytes # (Manual) (1.0-4.8) k/uL Nucleated RBCs (0-0) /100 WBC Chloride (98-107) mmol/L Carbon Dioxide (22-30) mmol/L BUN (9-20) mg/dL POC Glucose (mg/dL) 151 H (75-99) mg/dL Calcium (8.4-10.2) mg/dL Crossmatch See Detail 08/02/16 08/02/16 08/03/16 Range/Units 19:00 19:34 04:26 WBC 2.4 L 2.4 L (3.8-10.6) k/uL RBC 2.03 L 2.19 L (4.30-5.90) m/uL Hgb 7.4 L 8.1 L (13.0-17.5) gm/dL Hct 22.3 L 23.3 L (39.0-53.0) % MCV 109.4 H D 106.1 H (80.0-100.0) fL MCH 36.2 H 37.1 H (25.0-35.0) pg MCHC (31.0-37.0) g/dL RDW 24.5 H 25.1 H (11.5-15.5) % Plt Count 491 H 478 H (150-450) k/uL Lymphocytes # 0.4 L (1.0-4.8) k/uL Lymphocytes # (Manual) 0.6 L (1.0-4.8) k/uL Nucleated RBCs 1 H (0-0) /100 WBC Chloride (98-107) mmol/L Carbon Dioxide (22-30) mmol/L BUN (9-20) mg/dL POC Glucose (mg/dL) 202 H (75-99) mg/dL Calcium (8.4-10.2) mg/dL Crossmatch 08/03/16 08/03/16 Range/Units 04:26 06:50 WBC (3.8-10.6) k/uL RBC (4.30-5.90) m/uL Hgb (13.0-17.5) gm/dL Hct (39.0-53.0) % MCV (80.0-100.0) fL MCH (25.0-35.0) pg MCHC (31.0-37.0) g/dL RDW (11.5-15.5) % Plt Count (150-450) k/uL Lymphocytes # (1.0-4.8) k/uL Lymphocytes # (Manual) (1.0-4.8) k/uL Nucleated RBCs (0-0) /100 WBC Chloride 117 H (98-107) mmol/L Carbon Dioxide 21 L (22-30) mmol/L BUN 39 H (9-20) mg/dL POC Glucose (mg/dL) 109 H (75-99) mg/dL Calcium 7.9 L (8.4-10.2) mg/dL Crossmatch Assessment and Plan (1) GI bleed Narrative/Plan: Probable diverticular bleed with history diverticulosis last colonoscopy screening 3 years ago. Status: Acute (2) Colon, diverticulosis Status: Acute (3) Thrombocytosis Status: Acute (4) Acute blood loss anemia Status: Acute Plan: 1. CBC monitoring. Blood Transfusion as needed. 2. Hold aspirin therapy. GI prophylaxis. 3. EGD colonoscopy evaluation tomorrow to assess anemia and rectal bleeding. The winery cellar hand has discussed the risks, benefits and alternative therapies for the above-mentioned procedure and for both sedation/analgesia as well as necessary blood product administration, if indicated, as they pertain to this patient. The patient has indicated understanding and acceptance of the risks and procedures discussed. Thank you for this kind referral and the opportunity to participate in the care of your patient. This consultation was discussed with Dr. Mary. The impression and plan of care have been directed as dictated.
--- NOTE | 2016-08-03 12:05 | P.PN ---
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 Half hour later patient had another one at this time had more bleeding and an hour later had a third bowel movement this time he had more blood and more blood clot passing with worsening increase abdominal pain in the left lower quadrant. Patient ended up coming to the emergency department at [facility] where was seen and evaluated was diagnosed with acute gastrointestinal bleed most likely lower GI bleed and acute blood loss anemia started on blood transfusion processes patient was processed to be admitted to the intensive care unit will consult gas and neurology. Started patient on IV antibiotic for diverticulitis between [facility] and [facility]. Patient blood sugar has been high lately he was post to be on Tradjenta which apparently patient is. Patient will be started on Accu-Chek with sliding scales coverage. No further abdominal pain no nausea vomiting and no bloody or tarry stool since cc arrived to the emergency room. 08/03: Today the patient was evaluated he was sitting up eating breakfast. He denies any nausea or vomiting. He is still having left lower quadrant tenderness. Patient did receive 1 unit of packed red blood cells yesterday, repeat hemoglobin was 7.4. Patient ended up receiving another unit current hemoglobin is 8.1. The patient did report he had one bout of dark loose tarry stools last night. CAT scan did show diverticulosis with some mild diverticulitis at the descending colon and sigmoid colon junction and prior right nephrectomy. The patient is scheduled for an EGD/colonoscopy for tomorrow. He continues received IV metronidazole and levofloxacin. Will continue to monitor CBC, blood transfusion if necessary. Blood pressure remaines stable Objective - Vital Signs Vital signs: Vital Signs Temp 98.4 F 08/03/16 08:00 Pulse 73 08/03/16 09:00 Resp 18 08/03/16 09:00 BP 126/52 08/03/16 09:00 Pulse Ox 99 08/03/16 09:00 Intake & Output 08/02/16 08/03/16 08/03/16 18:59 06:59 18:59 Intake Total 1180 1970 900 Output Total 3124 2024 500 Balance -5 - 400 Weight 92.4 kg 92.8 kg Intake: IV 620 1200 150 Sodium Chloride 0.9% 1, 620 1200 150 000 ml @ 100 mls/hr IV . Q10H [facility] Rx#:[id number] Intake, IV Titration 250 100 150 Amount Levofloxacin 750Mg-D5w 150 150 Pmx 750 mg In Dextrose/ Water 1 150ml.bag @ 100 mls/hr IVPB Q24HR [facility] Rx# :[id number] metroNIDAZOLE-NS PMX 500 100 100 mg In Saline 1 100ml.bag @ 100 mls/hr IVPB Q8HR [facility] Rx#:[id number] Oral 600 Blood Product 310 620 Rc As-1 Unit 310 [id number] Rc As-1 Unit 310 [id number] Other 50 Rc As-1 Unit 50 [id number] Output: Urine 3124 2024 500 Other: Voiding Method Urinal Urinal # Voids 1 1 - Exam - Constitutional General appearance: no average body habitus, cooperative, no disheveled, no mild distress, no morbidly obese, no acute distress, no obese, no severe distress, no thin - EENT Eyes: no abnormal pupil, no anicteric sclerae, no disc margins sharp, no edentulous, no EOMI, no PERRLA, no fundus normal, no photophobia, no dentition normal, no poor dentition, no ptosis, no scleral icterus, normal appearance ENT: hard of hearing, no hearing grossly normal, no NA/AT, normal oropharynx, no other, no pharyngeal erythema, no thrush, no tonsillar exudates, no tonsillar swelling Ears: bilateral: normal - Neck Neck: no lymphadenopathy, normal ROM, no other, no rigidity, no stridor, no thyromegaly Carotids: bilateral: upstroke normal Thyroid: bilateral: normal size - Respiratory Respiratory: bilateral: CTA, diminished - Cardiovascular Rhythm: regular Heart sounds: normal: S1, S2 Abnormal Heart Sounds: systolic murmur, S3 Gallop - Gastrointestinal General gastrointestinal: no absent bowel sounds, decreased bowel sounds, no distended, no hepatomegaly, no hyperactive bowel sounds, normal bowel sounds, no organomegaly, no rigid, no scaphoid, soft, splenomegaly, no tenderness, no umbilical hernia, no ventral hernia - Integumentary Integumentary: no calor, no cellulitis, no cyanotic, no decreased turgor, no flushed, jaundiced, normal, no normal turgor, pale, rash, no ulcer - Neurologic Neurologic: CNII-XII intact - Musculoskeletal Musculoskeletal: gait normal, generalized weakness, strength equal bilaterally, no right sided weakness, no left sided weakness - Psychiatric Psychiatric: A&O x's 3, appropriate affect, no intact judgment & insight - Labs CBC & Chem 7: 08/03/16 04:26 08/03/16 04:26 Labs: Abnormal Lab Results - Last 24 Hours (Table) 08/02/16 08/02/16 08/02/16 Range/Units 07:50 13:01 19:00 WBC 2.1 L (3.8-10.6) k/uL RBC 2.28 L (4.30-5.90) m/uL Hgb 8.1 L (13.0-17.5) gm/dL Hct 26.1 L (39.0-53.0) % MCV 114.5 H (80.0-100.0) fL MCH 35.4 H (25.0-35.0) pg MCHC 30.9 L (31.0-37.0) g/dL RDW 24.7 H (11.5-15.5) % Plt Count 570 H (150-450) k/uL Lymphocytes # 0.3 L (1.0-4.8) k/uL Lymphocytes # (Manual) (1.0-4.8) k/uL Nucleated RBCs (0-0) /100 WBC Chloride (98-107) mmol/L Carbon Dioxide (22-30) mmol/L BUN (9-20) mg/dL POC Glucose (mg/dL) 202 H (75-99) mg/dL Calcium (8.4-10.2) mg/dL Crossmatch See Detail 08/02/16 08/03/16 08/03/16 Range/Units 19:34 04:26 04:26 WBC 2.4 L 2.4 L (3.8-10.6) k/uL RBC 2.03 L 2.19 L (4.30-5.90) m/uL Hgb 7.4 L 8.1 L (13.0-17.5) gm/dL Hct 22.3 L 23.3 L (39.0-53.0) % MCV 109.4 H D 106.1 H (80.0-100.0) fL MCH 36.2 H 37.1 H (25.0-35.0) pg MCHC (31.0-37.0) g/dL RDW 24.5 H 25.1 H (11.5-15.5) % Plt Count 491 H 478 H (150-450) k/uL Lymphocytes # 0.4 L (1.0-4.8) k/uL Lymphocytes # (Manual) 0.6 L (1.0-4.8) k/uL Nucleated RBCs 1 H (0-0) /100 WBC Chloride 117 H (98-107) mmol/L Carbon Dioxide 21 L (22-30) mmol/L BUN 39 H (9-20) mg/dL POC Glucose (mg/dL) (75-99) mg/dL Calcium 7.9 L (8.4-10.2) mg/dL Crossmatch 08/03/16 Range/Units 06:50 WBC (3.8-10.6) k/uL RBC (4.30-5.90) m/uL Hgb (13.0-17.5) gm/dL Hct (39.0-53.0) % MCV (80.0-100.0) fL MCH (25.0-35.0) pg MCHC (31.0-37.0) g/dL RDW (11.5-15.5) % Plt Count (150-450) k/uL Lymphocytes # (1.0-4.8) k/uL Lymphocytes # (Manual) (1.0-4.8) k/uL Nucleated RBCs (0-0) /100 WBC Chloride (98-107) mmol/L Carbon Dioxide (22-30) mmol/L BUN (9-20) mg/dL POC Glucose (mg/dL) 109 H (75-99) mg/dL Calcium (8.4-10.2) mg/dL Crossmatch Assessment and Plan Plan: 1 acute gastrointestinal bleed: Most likely lower GI bleed in origin most likely from diverticulitis. Patient started on Levaquin and metronidazole, continue to monitor CBC. Gastroenterology consulted, scheduled for colonoscopy/ EGD tomorrow. Patient will be continue on GI prophylaxis at this point. 2 acute blood loss anemia: Patient was transfused with 2 units RBC. Will repeat hemoglobin after transfusion if below 8 we will do another unit continue to watch his CBC every 8 hours. 3 acute diverticulitis: With worsening left lower quadrant pain mildly elevated blood count and bleeding patient was started on Levaquin and Flagyl. 4 history of thrombocytosis: Patient has been on Hydrea which will be continue in the next 24 hours. 5 diabetes: Patient has not been on any medication will continue Accu-Chek with sliding scales coverage and whether he is agreeable or not to start him on one of the oral agent when he is more stable. 6 hypertension: Patient has been doing well on hydralazine 25 g twice a day. 7 hyperlipidemia: Was post to be on simvastatin 20 mg a day patient himself off. 8 history of gout: Mostly from using Hydrea on his thrombocytosis patient has been on prophylaxis Zyloprim 300 mg a day resume medication. 9 chronic kidney disease stage II: Continue hydration repeat BUN/creatinine next 24 hours. 10 GI prophylaxis: Patient will be on pantoprazole IV. 11 DVT prophylaxis: Patient will be on knee-high JOSE LUIS hose and Venodyne boots no anticoagulation will be used for now. The above impression and plan of care have been discussed and directed by signing physician. Jessi Smith nurse practitioner acting as scribe for signing physician.
[2016-08-03 12:26] LABS: Glucose,Whole Blood 105 mg/dL (75-99)
--- NOTE | 2016-08-03 14:50 | PN ---
DATE OF SERVICE: 08/03/2016 The patient is an 80-year-old male who is seen sitting up in a chair in the ICU with his at the bedside. The patient is alert, oriented, is afebrile, hemodynamically stable, in no acute distress. On physical exam, VITAL SIGNS: Temp is 97.7, heart rate is 66, respiratory rate is 17, blood pressure is 108/66, O2 sat is 97% on room air. HEENT: Head is normocephalic, atraumatic. NECK: Supple. Trachea is midline. LUNGS: Clear. No rales or wheezes. HEART: S1 and S2 are heard. Not tachycardic. ABDOMEN: Soft. Bowel sounds are heard. EXTREMITIES: With no edema. NEUROLOGIC: The patient is awake, alert. LABS: White count is 2.4, hemoglobin is 8.1, hematocrit is 23.3 with 478,000 platelets. Sodium is 141, potassium is 4.9, chloride 117, CO2 is 21. Anion gap is 3, BUN is 39, creatinine is 1.05, glucose is 96. Calcium is 7.9. No new imaging to review. IMPRESSION: 1. Acute gastrointestinal bleed. 2. Thrombocytosis. 3. Possible colitis. 4. History of diverticulosis with possible diverticulitis and diverticular bleed. 5. History of anaphylaxis. PLAN: Continue current medications which have been reviewed. Continue Protonix. Continue to monitor hemoglobin and hematocrit and transfuse as needed. Continue IV antibiotics. Patient is being followed by GI Services and plan is for possible colonoscopy tomorrow. Will continue to follow the patient closely with you, making further changes as necessary. I performed a history and physical examination of this patient and discussed the same with the dictator. I agree with the dictator's note. Any additional findings/opinions, etc. will be noted.
[2016-08-03] MEDS ORDERED: PEG 3350-NA SULF,BICARB,CL/KCL 4,000 ML BOTTLE PO ONE (15:00)
[2016-08-03 15:10] LABS: Anisocytosis Marked; Basophils % (A) 2 %; CH 35.6; CHCM 32.3; Eosinophils % (A) 2 %; HCT 27.2 % (39.0-53.0); HDW 3.86; HGB 8.6 gm/dL (13.0-17.5); Hypochromasia Moderate; Luc % (Auto) 4; Lymphocytes # (A) 0.5 k/uL (1.0-4.8); Lymphocytes % (A) 23 %; MCH 34.9 pg (25.0-35.0); MCHC 31.4 g/dL (31.0-37.0); Macrocytosis Marked; Mean Platelet Volume 7.6; Monocytes # (A) 0.1 k/uL (0-1.0); Monocytes % (A) 4 %; Neutrophils # (A) 1.5 k/uL (1.3-7.7); Neutrophils % (A) 66 %; Poikilocytosis Slight; RBC 2.45 m/uL (4.30-5.90); RDW 24.7 % (11.5-15.5); WBC 2.3 k/uL (3.8-10.6); WBC (Perox) 2.45
[2016-08-03 15:19] LABS: MCV 111.1 fL (80.0-100.0)
[2016-08-03 17:18] LABS: Glucose,Whole Blood 106 mg/dL (75-99)
[2016-08-03] MEDS: ALLOPURINOL 300 MG TAB PO SCH (21:28)
[2016-08-03] MEDS: MORPHINE SULFATE 4 MG/ML SYRINGE IVP PRN (21:49)
[2016-08-03 22:37] LABS: Glucose,Whole Blood 114 mg/dL (75-99)
[2016-08-04] MEDS: metroNIDAZOLE-NS PMX 500 MG in SALINE 1 100ML.BAG IVPB SCH ×4 (00:02→23:55)
[2016-08-04 07:24] LABS: Glucose,Whole Blood 107 mg/dL (75-99)
[2016-08-04] MEDS: INSULIN LISPRO (humaLOG) 300 UNIT/3 ML VIAL SQ SCH ×4 (07:55→21:04)
[2016-08-04] MEDS: HYDROXYUREA 500 MG CAP PO SCH ×4 (08:03→21:00)
[2016-08-04] MEDS: hydrALAZINE HCL 25 MG TAB PO SCH ×2 (08:03→21:02)
[2016-08-04] MEDS: CHOLECALCIFEROL 1,000 UNIT TAB PO SCH (08:03)
[2016-08-04] MEDS: PANTOPRAZOLE 40 MG/10 ML VIAL IVP SCH ×2 (08:04→21:00)
[2016-08-04] MEDS ORDERED: PROPOFOL 10 MG/ML 20 ML VIAL IV ONE (09:28)
[2016-08-04] MEDS ORDERED: LIDOCAINE 1% INJ 10MG/ML (20 ML MDV) ONE (09:28)
[2016-08-04] MEDS ORDERED: IV FLUID CONTINUATION 1,000 ML IV ONE (09:30)
--- NOTE | 2016-08-04 09:52 | P.PCN ---
Date of Procedure: 08/04/16 Preoperative Diagnosis: Postoperative Diagnosis: Procedure(s) Performed: Brief history: Patient is a pleasant 80-year-old white male, scheduled for an elective upper endoscopy as well as colonoscopy as a part of evaluation of acute onset of lower abdominal pain followed by lower GI bleed for the last 2 days' duration. He has been having several episodes of maroon colored stools and a right sided abdominal pain. CT of abdomen showed left-sided diverticulosis. He also has been complaining of some epigastric discomfort and hence he scheduled for an upper endoscopy as well as colonoscopy to evaluate further. I to the onset of the symptoms he was having chronic diarrhea for the last 2 months. Procedure performed: Esophagogastroduodenoscopy with biopsy Colonoscopy with biopsy Preoperative diagnosis: Abdominal pain and acute GI bleed Anesthesia: MAC Procedure: After informed consent was obtained from the patient was brought into the endoscopy unit and IV sedation was administered by anesthesia under continuous monitoring. Initially upper endoscopy was done. The Olympus GF 160 video endoscope was inserted inserted into the mouth and esophagus intubated without any difficulty and was gradually advanced into the stomach and duodenum and carefully examined. In the bulb of the duodenum there was a 5 mm superficial duodenal ulcer with no active bleeding identified. The rest of the bulb and second part of the duodenum appeared normal. The scope was then withdrawn into the stomach adequately insufflated with air and upon careful examination the antrum had multiple scattered erosions and gastritis and biopsies were done from this area. The body, cardia and fundus appeared normal. The scope was then withdrawn into the esophagus. The GE junction was located at 40 cm to the incisors. It appeared regular with no erythema erosions or ulcerations. Rest of the esophagus appeared normal. Patient tolerated the procedure well. At this time the patient continued to remain sedation. Initial digital rectal examination was normal. Olympus CF 160 video colonoscope was then inserted into the rectum and gradually advanced to the cecum without any difficulty. Careful examination was performed as the scope was gradually being withdrawn. The prep was excellent. The cecum, ascending colon, transverse colon, descending colon, sigmoid colon and rectum appeared normal. scattered left- sided diverticulosis seen. Random biopsies were done from the ascending colon to rule out microscopic/collagenous colitis. Retroflexion was performed in the rectum and no lesions were noted. Patient tolerated the procedure well. Impression: 1. Upper endoscopy revealed 5 mm superficial duodenal bulbar ulcer and antral erosive gastritis. 2. Colonoscopy revealed left sided diverticulosis but no evidence of colitis or colorectal neoplasia. Recommendations: Findings of this examination were discussed with the patient.it appears most likely we are dealing with a diverticular bleed that has spontaneously resolved. He'll be started on a soft diet. He can be discharged home today or tomorrow. Implants: Indications for Procedure: Operative Findings: Description of Procedure:
[2016-08-04] MEDS: LEVOFLOXACIN 750MG-D5W PMX 750 MG in DEXTROSE/WATER 1 150ML.BAG IVPB SCH (11:27)
[2016-08-04 12:03] LABS: Glucose,Whole Blood 106 mg/dL (75-99)
--- NOTE | 2016-08-04 14:42 | P.PN ---
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 Half hour later patient had another one at this time had more bleeding and an hour later had a third bowel movement this time he had more blood and more blood clot passing with worsening increase abdominal pain in the left lower quadrant. Patient ended up coming to the emergency department at [facility] where was seen and evaluated was diagnosed with acute gastrointestinal bleed most likely lower GI bleed and acute blood loss anemia started on blood transfusion processes patient was processed to be admitted to the intensive care unit will consult gas and neurology. Started patient on IV antibiotic for diverticulitis between [facility] and [facility]. Patient blood sugar has been high lately he was post to be on Tradjenta which apparently patient is. Patient will be started on Accu-Chek with sliding scales coverage. No further abdominal pain no nausea vomiting and no bloody or tarry stool since cc arrived to the emergency room. 08/03: Today the patient was evaluated he was sitting up eating breakfast. He denies any nausea or vomiting. He is still having left lower quadrant tenderness. Patient did receive 1 unit of packed red blood cells yesterday, repeat hemoglobin was 7.4. Patient ended up receiving another unit current hemoglobin is 8.1. The patient did report he had one bout of dark loose tarry stools last night. CAT scan did show diverticulosis with some mild diverticulitis at the descending colon and sigmoid colon junction and prior right nephrectomy. The patient is scheduled for an EGD/colonoscopy for tomorrow. He continues received IV metronidazole and levofloxacin. Will continue to monitor CBC, blood transfusion if necessary. Blood pressure remaines stable 08/04/2016: Patient underwent EGD and colonoscopy today patient had multiple small bulbar ulcer that were not bleeding, the colonoscopy did show diverticulosis, this is likely the source of the bleed, patient has been complaining of pain in the left lower quadrant he is tolerating soft diet very well, we will keep the patient the hospital for another 24 hours he will be discharged home tomorrow morning. Objective - Vital Signs Vital signs: Vital Signs Temp 97.5 F L 08/04/16 10:14 Pulse 82 08/04/16 10:14 Resp 15 08/04/16 10:14 BP 119/52 08/04/16 10:14 Pulse Ox 96 08/04/16 10:14 Intake & Output 08/03/16 08/04/16 08/04/16 18:59 06:59 18:59 Intake Total 2700 100 300 Output Total 2825 5925 Balance -125 -5825 300 Weight 92.8 kg Intake: IV 750 300 Sodium Chloride 0.9% 1, 750 000 ml @ 100 mls/hr IV . [facility] Rx#:[id number] Intake, IV Titration 350 100 Amount Levofloxacin 750Mg-D5w 150 Pmx 750 mg In Dextrose/ Water 1 150ml.bag @ 100 mls/hr IVPB Q24HR JS Rx# :[id number] metroNIDAZOLE-NS PMX 500 200 100 mg In Saline 1 100ml.bag @ 100 mls/hr IVPB Q8HR JS Rx#:[id number] Oral 1600 Output: Urine 2821 5925 Other: Voiding Method Urinal Urinal Urinal # Voids 1 1 # Bowel Movements 1 - Exam - Constitutional General appearance: no average body habitus, cooperative, no disheveled, no mild distress, no morbidly obese, no acute distress, no obese, no severe distress, no thin - EENT Eyes: no abnormal pupil, no anicteric sclerae, no disc margins sharp, no edentulous, no EOMI, no PERRLA, no fundus normal, no photophobia, no dentition normal, no poor dentition, no ptosis, no scleral icterus, normal appearance ENT: hard of hearing, no hearing grossly normal, no NA/AT, normal oropharynx, no other, no pharyngeal erythema, no thrush, no tonsillar exudates, no tonsillar swelling Ears: bilateral: normal - Neck Neck: no lymphadenopathy, normal ROM, no other, no rigidity, no stridor, no thyromegaly Carotids: bilateral: upstroke normal Thyroid: bilateral: normal size - Respiratory Respiratory: bilateral: CTA, diminished - Cardiovascular Rhythm: regular Heart sounds: normal: S1, S2 Abnormal Heart Sounds: systolic murmur, S3 Gallop - Gastrointestinal General gastrointestinal: no absent bowel sounds, decreased bowel sounds, no distended, no hepatomegaly, no hyperactive bowel sounds, normal bowel sounds, no organomegaly, no rigid, no scaphoid, soft, splenomegaly, no tenderness, no umbilical hernia, no ventral hernia - Integumentary Integumentary: no calor, no cellulitis, no cyanotic, no decreased turgor, no flushed, jaundiced, normal, no normal turgor, pale, rash, no ulcer - Neurologic Neurologic: CNII-XII intact - Musculoskeletal Musculoskeletal: gait normal, generalized weakness, strength equal bilaterally, no right sided weakness, no left sided weakness - Psychiatric Psychiatric: A&O x's 3, appropriate affect, no intact judgment & insight - Labs CBC & Chem 7: 08/03/16 14:52 08/03/16 04:26 Labs: Abnormal Lab Results - Last 24 Hours (Table) 08/03/16 08/03/16 08/03/16 Range/Units 12:24 14:52 17:08 WBC 2.3 L (3.8-10.6) k/uL RBC 2.45 L (4.30-5.90) m/uL Hgb 8.6 L (13.0-17.5) gm/dL Hct 27.2 L (39.0-53.0) % MCV 111.1 H D (80.0-100.0) fL RDW 24.7 H (11.5-15.5) % Plt Count 515 H (150-450) k/uL Lymphocytes # 0.5 L (1.0-4.8) k/uL POC Glucose (mg/dL) 105 H 106 H (75-99) mg/dL 08/03/16 08/04/16 Range/Units 22:35 07:03 WBC (3.8-10.6) k/uL RBC (4.30-5.90) m/uL Hgb (13.0-17.5) gm/dL Hct (39.0-53.0) % MCV (80.0-100.0) fL RDW (11.5-15.5) % Plt Count (150-450) k/uL Lymphocytes # (1.0-4.8) k/uL POC Glucose (mg/dL) 114 H 107 H (75-99) mg/dL Microbiology - Last 24 Hours (Table) 08/02/16 13:01 Blood Culture - Preliminary Blood No Growth after 24 hours 08/02/16 07:50 Blood Culture - Preliminary Blood No Growth after 24 hours Assessment and Plan Plan: Assessment and Plan Plan: 1 acute gastrointestinal bleed: Most likely lower GI bleed in origin most likely from diverticulitis. Patient started on Levaquin and metronidazole, continue to monitor CBC. Patient underwent EGD and colonoscopy that confirmed the diagnosis of diverticulitis/diverticulosis, and bulbar ulcers that were not bleeding. Continue IV antibiotic, hopefully home tomorrow morning. 2 acute blood loss anemia: Patient was transfused with 2 units RBC. Will repeat hemoglobin after transfusion if below 8 we will do another unit continue to watch his CBC every 8 hours. 3 acute diverticulitis: With worsening left lower quadrant pain mildly elevated blood count and bleeding patient was started on Levaquin and Flagyl. 4 history of thrombocytosis: Patient has been on Hydrea which will be continue in the next 24 hours. 5 diabetes: Patient has not been on any medication will continue Accu-Chek with sliding scales coverage and whether he is agreeable or not to start him on one of the oral agent when he is more stable. 6 hypertension: Patient has been doing well on hydralazine 25 g twice a day. 7 hyperlipidemia: Was post to be on simvastatin 20 mg a day patient himself off. 8 history of gout: Mostly from using Hydrea on his thrombocytosis patient has been on prophylaxis Zyloprim 300 mg a day resume medication. 9 chronic kidney disease stage II: Continue hydration repeat BUN/creatinine next 24 hours. 10 GI prophylaxis: Patient will be on pantoprazole IV. 11 DVT prophylaxis: Patient will be on knee-high JOSE LUIS hose and Venodyne boots no anticoagulation will be used for now.
[2016-08-04 16:36] LABS: Glucose,Whole Blood 119 mg/dL (75-99)
[2016-08-04 20:07] LABS: Glucose,Whole Blood 209 mg/dL (75-99)
[2016-08-04] MEDS: ALLOPURINOL 300 MG TAB PO SCH (21:00)
[2016-08-05 07:29] LABS: Anisocytosis Marked; CH 35.9; CHCM 33.6; HCT 24.3 % (39.0-53.0); HDW 3.85; HGB 8.3 gm/dL (13.0-17.5); MCH 36.5 pg (25.0-35.0); MCHC 34.1 g/dL (31.0-37.0); MCV 107.1 fL (80.0-100.0); Macrocytosis Marked; Mean Platelet Volume 7.3; Poikilocytosis Slight; RBC 2.27 m/uL (4.30-5.90); RDW 24.2 % (11.5-15.5); WBC (Perox) 1.87
[2016-08-05 07:45] LABS: ALT 18 U/L (21-72); AST 17 U/L (17-59); Alkaline Phosphatase 32 U/L (38-126); Anion Gap 6 mmol/L; Blood Urea Nitrogen 12 mg/dL (9-20); Calcium 8.4 mg/dL (8.4-10.2); Carbon Dioxide 23 mmol/L (22-30); Chloride 115 mmol/L (98-107); Glucose 106 mg/dL (74-99); Non-African American GFR(MDRD) >60 (>60 ml/min/1.73 sqM); Potassium 4.2 mmol/L (3.5-5.1); Sodium 144 mmol/L (137-145); Total Bilirubin 0.6 mg/dL (0.2-1.3); Total Protein 4.6 g/dL (6.3-8.2)
[2016-08-05 07:49] LABS: Glucose,Whole Blood 120 mg/dL (75-99)
[2016-08-05 08:10] VITALS: BP 119/62; PULSE 82; RESP 16; TEMP 98.3
[2016-08-05] MEDS: INSULIN LISPRO (humaLOG) 300 UNIT/3 ML VIAL SQ SCH (08:58)
[2016-08-05] MEDS: metroNIDAZOLE-NS PMX 500 MG in SALINE 1 100ML.BAG IVPB SCH (09:00)
[2016-08-05] MEDS: hydrALAZINE HCL 25 MG TAB PO SCH (09:01)
[2016-08-05] MEDS: HYDROXYUREA 500 MG CAP PO SCH (09:01)
[2016-08-05] MEDS: PANTOPRAZOLE 40 MG/10 ML VIAL IVP SCH (09:01)
[2016-08-05] MEDS: CHOLECALCIFEROL 1,000 UNIT TAB PO SCH (09:01)
[2016-08-05] MEDS: LEVOFLOXACIN 750MG-D5W PMX 750 MG in DEXTROSE/WATER 1 150ML.BAG IVPB SCH (10:50)
[2016-08-05 11:42] LABS: Add Differential Manual Differential
[2016-08-05 11:47] LABS: Nucleated Red Blood Cells 4 /100 WBC (0-0); Total Cells Counted 100
[2016-08-05 11:48] LABS: Ovalocytes Present; WBC 1.6 k/uL (3.8-10.6)
[2016-08-05 12:24] LABS: Glucose,Whole Blood 185 mg/dL (75-99)
--- NOTE | 2016-08-05 12:58 | P.PN ---
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 Half hour later patient had another one at this time had more bleeding and an hour later had a third bowel movement this time he had more blood and more blood clot passing with worsening increase abdominal pain in the left lower quadrant. Patient ended up coming to the emergency department at [facility] where was seen and evaluated was diagnosed with acute gastrointestinal bleed most likely lower GI bleed and acute blood loss anemia started on blood transfusion processes patient was processed to be admitted to the intensive care unit will consult gas and neurology. Started patient on IV antibiotic for diverticulitis between [facility] and [facility]. Patient blood sugar has been high lately he was post to be on Tradjenta which apparently patient is. Patient will be started on Accu-Chek with sliding scales coverage. No further abdominal pain no nausea vomiting and no bloody or tarry stool since cc arrived to the emergency room. 08/03: Today the patient was evaluated he was sitting up eating breakfast. He denies any nausea or vomiting. He is still having left lower quadrant tenderness. Patient did receive 1 unit of packed red blood cells yesterday, repeat hemoglobin was 7.4. Patient ended up receiving another unit current hemoglobin is 8.1. The patient did report he had one bout of dark loose tarry stools last night. CAT scan did show diverticulosis with some mild diverticulitis at the descending colon and sigmoid colon junction and prior right nephrectomy. The patient is scheduled for an EGD/colonoscopy for tomorrow. He continues received IV metronidazole and levofloxacin. Will continue to monitor CBC, blood transfusion if necessary. Blood pressure remaines stable 08/04/2016: Patient underwent EGD and colonoscopy today patient had multiple small bulbar ulcer that were not bleeding, the colonoscopy did show diverticulosis, this is likely the source of the bleed, patient has been complaining of pain in the left lower quadrant he is tolerating soft diet very well, we will keep the patient the hospital for another 24 hours he will be discharged home tomorrow morning. 08/05/2016: Patient sitting up in bed in no apparent distress, his white count dropped to 1.7 from 2.1 yesterday, he denies any chest pain, shortness breath, he continues to have some pain in the left lower quadrant, no GI bleed. Hemoglobin is stable at this time. Objective - Vital Signs Vital signs: Vital Signs Temp 98.3 F 08/05/16 07:00 Pulse 82 08/05/16 07:00 Resp 16 08/05/16 07:00 BP 119/62 08/05/16 07:00 Pulse Ox 98 08/05/16 07:00 Intake & Output 08/04/16 08/05/16 08/05/16 18:59 06:59 18:59 Intake Total 660 846 Balance 660 846 Intake: IV 300 Intake, IV Titration 360 Amount IV Fluid Continuation 1, 110 000 ml As IV .[facility] Rx#:[id number] Levofloxacin 750Mg-D5w 150 Pmx 750 mg In Dextrose/ Water 1 150ml.bag @ 100 mls/hr IVPB Q24HR [facility] Rx# :[id number] metroNIDAZOLE-NS PMX 500 100 mg In Saline 1 100ml.bag @ 100 mls/hr IVPB Q8HR JS Rx#:[id number] Oral 846 Other: Voiding Method Urinal Urinal Urinal # Voids 2 # Bowel Movements 1 - Exam - Constitutional General appearance: no average body habitus, cooperative, no disheveled, no mild distress, no morbidly obese, no acute distress, no obese, no severe distress, no thin - EENT Eyes: no abnormal pupil, no anicteric sclerae, no disc margins sharp, no edentulous, no EOMI, no PERRLA, no fundus normal, no photophobia, no dentition normal, no poor dentition, no ptosis, no scleral icterus, normal appearance ENT: hard of hearing, no hearing grossly normal, no NA/AT, normal oropharynx, no other, no pharyngeal erythema, no thrush, no tonsillar exudates, no tonsillar swelling Ears: bilateral: normal - Neck Neck: no lymphadenopathy, normal ROM, no other, no rigidity, no stridor, no thyromegaly Carotids: bilateral: upstroke normal Thyroid: bilateral: normal size - Respiratory Respiratory: bilateral: CTA, diminished - Cardiovascular Rhythm: regular Heart sounds: normal: S1, S2 Abnormal Heart Sounds: systolic murmur, S3 Gallop - Gastrointestinal General gastrointestinal: no absent bowel sounds, decreased bowel sounds, no distended, no hepatomegaly, no hyperactive bowel sounds, normal bowel sounds, no organomegaly, no rigid, no scaphoid, soft, splenomegaly, no tenderness, no umbilical hernia, no ventral hernia - Integumentary Integumentary: no calor, no cellulitis, no cyanotic, no decreased turgor, no flushed, jaundiced, normal, no normal turgor, pale, rash, no ulcer - Neurologic Neurologic: CNII-XII intact - Musculoskeletal Musculoskeletal: gait normal, generalized weakness, strength equal bilaterally, no right sided weakness, no left sided weakness - Psychiatric Psychiatric: A&O x's 3, appropriate affect, no intact judgment & insight - Labs CBC & Chem 7: 08/05/16 06:50 08/05/16 06:50 Labs: Abnormal Lab Results - Last 24 Hours (Table) 08/04/16 08/04/16 08/04/16 Range/Units 11:53 16:31 20:05 WBC (3.8-10.6) k/uL RBC (4.30-5.90) m/uL Hgb (13.0-17.5) gm/dL Hct (39.0-53.0) % MCV (80.0-100.0) fL MCH (25.0-35.0) pg RDW (11.5-15.5) % Plt Count (150-450) k/uL Chloride (98-107) mmol/L Glucose (74-99) mg/dL POC Glucose (mg/dL) 106 H 119 H 209 H (75-99) mg/dL ALT (21-72) U/L Alkaline Phosphatase (38-126) U/L Total Protein (6.3-8.2) g/dL Albumin (3.5-5.0) g/dL 08/05/16 08/05/16 08/05/16 Range/Units 06:50 06:50 07:35 WBC 1.7 L* (3.8-10.6) k/uL RBC 2.27 L (4.30-5.90) m/uL Hgb 8.3 L (13.0-17.5) gm/dL Hct 24.3 L (39.0-53.0) % MCV 107.1 H (80.0-100.0) fL MCH 36.5 H (25.0-35.0) pg RDW 24.2 H (11.5-15.5) % Plt Count 553 H (150-450) k/uL Chloride 115 H (98-107) mmol/L Glucose 106 H (74-99) mg/dL POC Glucose (mg/dL) 120 H (75-99) mg/dL ALT 18 L (21-72) U/L Alkaline Phosphatase 32 L (38-126) U/L Total Protein 4.6 L (6.3-8.2) g/dL Albumin 2.5 L (3.5-5.0) g/dL Microbiology - Last 24 Hours (Table) 08/02/16 13:01 Blood Culture - Preliminary Blood No Growth after 48 hours 08/02/16 07:50 Blood Culture - Preliminary Blood No Growth after 48 hours Assessment and Plan Plan: Assessment and Plan Plan: 1 acute gastrointestinal bleed: Most likely lower GI bleed in origin most likely from diverticulitis. Patient started on Levaquin and metronidazole, continue to monitor CBC. Patient underwent EGD and colonoscopy that confirmed the diagnosis of diverticulitis/diverticulosis, and bulbar ulcers that were not bleeding. Continue IV antibiotic, hopefully home tomorrow morning. 2 acute blood loss anemia: Patient was transfused with 2 units RBC. Will repeat hemoglobin after transfusion if below 8 we will do another unit continue to watch his CBC every 8 hours. 3 acute diverticulitis: With worsening left lower quadrant pain mildly elevated blood count and bleeding patient was started on Levaquin and Flagyl. 4 history of thrombocytosis: Patient has been on Hydrea which will be continue in the next 24 hours. 5 diabetes: Patient has not been on any medication will continue Accu-Chek with sliding scales coverage and whether he is agreeable or not to start him on one of the oral agent when he is more stable. 6 hypertension: Patient has been doing well on hydralazine 25 g twice a day. 7 hyperlipidemia: Was post to be on simvastatin 20 mg a day patient himself off. 8 history of gout: Mostly from using Hydrea on his thrombocytosis patient has been on prophylaxis Zyloprim 300 mg a day resume medication. 9 chronic kidney disease stage II: Continue hydration repeat BUN/creatinine next 24 hours. 10 GI prophylaxis: Patient will be on pantoprazole IV. 11 DVT prophylaxis: Patient will be on knee-high JOSE LUIS hose and Venodyne boots no anticoagulation will be used for now. 12. Leukopenia. We will hold off Hydrea for today. Repeat CBC tomorrow morning.
--- NOTE | 2016-08-05 13:01 | P.DS ---
Providers Date of admission: 08/02/16 09:54 Attending physician: Luciana Ayala Consults: 08/02/16 09:54 Consult Physician Urgent Consulting Provider: Johan Hudson Consult Reason/Comments: gib Do you want consulting provider notified?: Yes Consult Physician Urgent Consulting Provider: Yovana Manzano Consult Reason/Comments: icu Do you want consulting provider notified?: Yes Primary care physician: Luciana Ayala Hospital Course: 80-year-old male one of Dr. Ayala's patient with past medical history of diabetes, hypertension, hyperlipidemia, TIA and CVA 3 and history of thrombocytosis patient has been on hydrea, patient has been doing well until around 2:00 after midnight when he woke up with slight abdominal discomfort which has been ongoing for the last 2 weeks become much worse last night ended up going to the bathroom and having bowel movement with slight diarrhea and what sounds to believe it's bright red blood per rectum at the time. Half hour later patient had another one at this time had more bleeding and an hour later had a third bowel movement this time he had more blood and more blood clot passing with worsening increase abdominal pain in the left lower quadrant. Patient ended up coming to the emergency department at [facility] where was seen and evaluated was diagnosed with acute gastrointestinal bleed most likely lower GI bleed and acute blood loss anemia started on blood transfusion processes patient was processed to be admitted to the intensive care unit will consult gas and neurology. Started patient on IV antibiotic for diverticulitis between [facility]. Patient blood sugar has been high lately he was post to be on Tradjenta which apparently patient is. Patient will be started on Accu-Chek with sliding scales coverage. No further abdominal pain no nausea vomiting and no bloody or tarry stool since cc arrived to the emergency room. 08/03: Today the patient was evaluated he was sitting up eating breakfast. He denies any nausea or vomiting. He is still having left lower quadrant tenderness. Patient did receive 1 unit of packed red blood cells yesterday, repeat hemoglobin was 7.4. Patient ended up receiving another unit current hemoglobin is 8.1. The patient did report he had one bout of dark loose tarry stools last night. CAT scan did show diverticulosis with some mild diverticulitis at the descending colon and sigmoid colon junction and prior right nephrectomy. The patient is scheduled for an EGD/colonoscopy for tomorrow. He continues received IV metronidazole and levofloxacin. Will continue to monitor CBC, blood transfusion if necessary. Blood pressure remaines stable 08/04/2016: Patient underwent EGD and colonoscopy today patient had multiple small bulbar ulcer that were not bleeding, the colonoscopy did show diverticulosis, this is likely the source of the bleed, patient has been complaining of pain in the left lower quadrant he is tolerating soft diet very well, we will keep the patient the hospital for another 24 hours he will be discharged home tomorrow morning. 08/05/2016: Patient sitting up in bed in no apparent distress, his white count dropped to 1.7 from 2.1 yesterday, he denies any chest pain, shortness breath, he continues to have some pain in the left lower quadrant, no GI bleed. Hemoglobin is stable at this time. Discharge diagnoses: 1. Lower GI bleed secondary to diverticulosis with diverticulitis 2. Duodenal bulbar ulcer not bleeding. 3. Gastritis. 4. Post EGD and colonoscopy. 5. Leukopenia. Repeat CBC in 1-2 days. 6. Essential thrombocytosis. 7. Hypertension and hypertensive cardiovascular disease. 8. Hyperlipidemia. 9. Acute blood loss anemia. Patient Condition at Discharge: Stable Plan - Discharge Summary New Discharge Prescriptions: New Levofloxacin [Levaquin] 500 mg PO Q24H #7 tab metroNIDAZOLE [Flagyl] 500 mg PO TID #21 tab Pantoprazole [Protonix] 40 mg PO AC-BID #60 tab Continue hydrALAZINE HCL [Apresoline] 25 mg PO BID Hydroxyurea [Hydrea] 500 mg PO QID Allopurinol [Zyloprim] 300 mg PO HS traMADol HCl [Ultram] 50 mg PO Q8H PRN PRN Reason: Pain Cholecalciferol [Vitamin D3] 2,000 unit PO DAILY Loperamide [Imodium] 2 mg PO DAILY PRN PRN Reason: Diarrhea Aspirin 325 mg PO BID Discharge Medication List Allopurinol [Zyloprim] 300 mg PO HS 09/01/13 [History] Hydroxyurea [Hydrea] 500 mg PO QID 09/01/13 [History] hydrALAZINE HCL [Apresoline] 25 mg PO BID 09/01/13 [History] traMADol HCl [Ultram] 50 mg PO Q8H PRN 04/04/15 [History] Cholecalciferol [Vitamin D3] 2,000 unit PO DAILY 08/20/15 [History] Aspirin 325 mg PO BID 08/02/16 [History] Loperamide [Imodium] 2 mg PO DAILY PRN 08/02/16 [History] Levofloxacin [Levaquin] 500 mg PO Q24H #7 tab 08/05/16 [Rx] Pantoprazole [Protonix] 40 mg PO AC-BID #60 tab 08/05/16 [Rx] metroNIDAZOLE [Flagyl] 500 mg PO TID #21 tab 08/05/16 [Rx] Follow up Appointment(s)/Referral(s): Luciana Ayala MD [Primary Care Provider] - 1-2 days
--- NOTE | 2016-08-05 13:05 | PN ---
Patient is an 80-year-old pleasant white male admitted to the hospital with acute GI bleed. He underwent an upper endoscopy as well as colonoscopy yesterday. Upper endoscopy revealed small duodenal ulcer and gastritis and colonoscopy revealed left-sided diverticulosis, but no evidence of active bleeding. He is doing much better today. Abdominal pain has resolved. No further episodes of bleeding. On physical examination, appears comfortable in no apparent distress. Vitals as are stable. Blood pressure 145/63, pulse 81, temperature 97. HEENT examination unremarkable, conjunctivae pink, sclerae anicteric. Oral cavity no lesions. NECK: No JVD or lymph node enlargement. CHEST: Clear to auscultation. HEART: Regular rate and rhythm. ABDOMEN: Soft. Bowel sounds are positive. No organomegaly. EXTREMITIES: No pedal edema. SKIN: No rashes. NEURO: Alert and oriented x2. No focal deficits. LABS: WBC 1.7, hemoglobin 8.3, platelets are 553. IMPRESSION: Acute gastrointestinal bleed, possibly diverticular in etiology, status post esophagogastroduodenoscopy and colonoscopy yesterday that showed evidence of small gastric duodenal ulcer and gastritis as well as diverticulosis, but no evidence of active bleeding. Today, hemoglobin is stable. Patient is asymptomatic. Last hemoglobin 8.3 g/dL. RECOMMENDATIONS: 1. Advance to a soft diet. 2. Follow-up in the hospital in 2 to 3 weeks following discharge from the hospital. Thank you for this consultation.
[2016-08-05] MEDS ORDERED: metroNIDAZOLE 500 MG TAB PO SCH (16:00)
[2016-08-05] MEDS ORDERED: PANTOPRAZOLE 40 MG TABLET PO SCH (17:30)
[2016-08-06] MEDS ORDERED: LEVOFLOXACIN 500 MG TAB PO SCH (11:00)
== END 2016-08-05 14:08 | disposition home or self-care (01) | DRG 378 ==
LOC: EC 07:16 → 6ICU 09:54 → 5MS5E 08-03 17:09
PROVIDERS: ADMIT Family Medicine; ATTEND Family Medicine
PROC: 30253N1 (ICD-10-PCS; principal; 2016-08-02)
PROC: 0DBK8ZX Excision of Ascending Colon, Via Natural or Artificial Opening Endoscopic, Diagnostic (ICD-10-PCS; 2016-08-04)
PROC: 0DB68ZX Excision of Stomach, Via Natural or Artificial Opening Endoscopic, Diagnostic (ICD-10-PCS; 2016-08-04 10:10)
DX: K57.33 Diverticulitis of large intestine without perforation or abscess with bleeding (principal); D62 Acute posthemorrhagic anemia; E11.22 Type 2 diabetes mellitus with diabetic chronic kidney disease; I13.10 Hypertensive heart and chronic kidney disease without heart failure, with stage 1 through stage 4 chronic kidney disease, or unspecified chronic kidney disease; K29.60 Other gastritis without bleeding; K26.9 Duodenal ulcer, unspecified as acute or chronic, without hemorrhage or perforation; D72.819 Decreased white blood cell count, unspecified; E78.5 Hyperlipidemia, unspecified; D47.3 Essential (hemorrhagic) thrombocythemia; G47.33 Obstructive sleep apnea (adult) (pediatric); G89.29 Other chronic pain; N18.2 Chronic kidney disease, stage 2 (mild); M19.91 Primary osteoarthritis, unspecified site; M47.9 Spondylosis, unspecified; G43.909 Migraine, unspecified, not intractable, without status migrainosus; M10.9 Gout, unspecified; Z52.4 Kidney donor; Z90.5 Acquired absence of kidney; Z90.49 Acquired absence of other specified parts of digestive tract; Z85.828 Personal history of other malignant neoplasm of skin; Z87.892 Personal history of anaphylaxis; Z86.73 Personal history of transient ischemic attack (TIA), and cerebral infarction without residual deficits; Z96.643 Presence of artificial hip joint, bilateral; Z98.41 Cataract extraction status, right eye; Z96.1 Presence of intraocular lens; Z79.82 Long term (current) use of aspirin; Z79.899 Other long term (current) drug therapy; Z91.030 Bee allergy status
CPT/HCPCS: 36415; 36430; 43239; 45380; 74176; 80048; 80053; 82550; 82553; 83036; 83605; 83735; 84132; 84484; 85025; 85610; 85730; 86850; 86900; 86901; 86920; 87040; 88305; 88342; 93005; 96361; 96365; 96375; 99291

== ENCOUNTER 2016-08-08 14:48 | Emergency (ER) | payer MEDICARE ==
[2016-08-08 15:10] VITALS: PULSE 62; RESP 18
--- NOTE | 2016-08-08 15:33 | ED ---
General Adult HPI - General Chief complaint: Recheck/Abnormal Lab/Rx Stated complaint: Poss blood clot Time Seen by Provider: 08/08/16 15:21 Source: patient, RN notes reviewed Mode of arrival: wheelchair Limitations: no limitations - History of Present Illness Initial comments: 80-year-old male presents to the emergency department with a chief complaint of concern about possible blood clot. Patient has noticed some pain in the posterior calf and swelling to the left lower extremity ever since he was discharged from the hospital on Saturday. Patient states he also has a little bit of bruising and some pain where the IV site was on his left upper extremity. Patient states that he was concerned due to the symptoms he thought that he should be seen. Patient has never had a blood clot in the past. Patient does not obviously some blood thinners but he is here in the hospital. Patient states that he was concerned due to his symptoms were thought that he should be evaluated. Patient states he is not currently having any other symptoms at this time. Patient denies any chest pain or difficulty breathing. Patient denies any recent fever, chills, shortness of breath, chest pain, back pain, abdominal pain, nausea vomiting, numbness or tingling, dysuria or hematuria, constipation or diarrhea, headaches or visual changes, or any other current symptoms. - Related Data Home Medications Medication Instructions Recorded Confirmed Allopurinol [Zyloprim] 300 mg PO HS 09/01/13 08/08/16 Hydroxyurea [Hydrea] 500 mg PO QID 09/01/13 08/08/16 hydrALAZINE HCL [Apresoline] 25 mg PO BID 09/01/13 08/08/16 traMADol HCl [Ultram] 50 mg PO Q8H PRN 04/04/15 08/08/16 Cholecalciferol [Vitamin D3] 2,000 unit PO DAILY 08/20/15 08/08/16 Aspirin 325 mg PO BID 08/02/16 08/08/16 Loperamide [Imodium] 2 mg PO DAILY PRN 08/02/16 08/08/16 Previous Rx's Medication Instructions Recorded Levofloxacin [Levaquin] 500 mg PO Q24H #7 tab 08/05/16 Pantoprazole [Protonix] 40 mg PO AC-BID #60 tab 08/05/16 metroNIDAZOLE [Flagyl] 500 mg PO TID #21 tab 08/05/16 Allergies Allergy/AdvReac Type Severity Reaction Status Date / Time venom-honey bee Allergy Anaphylaxis Verified 08/08/16 15:10 [bee venom (honey bee)] Review of Systems ROS Statement: Those systems with pertinent positive or pertinent negative responses have been documented in the HPI. ROS Other: All systems not noted in ROS Statement are negative. Past Medical History Past Medical History: Cancer, CVA/TIA, Diabetes Mellitus, Eye Disorder, Hyperlipidemia, Hypertension, Osteoarthritis (OA), Sleep Apnea/CPAP/BIPAP Additional Past Medical History / Comment(s): Past lower GI bleed, diverticular dx, thrombocytosis-sees Dr. 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 History of Any Multi-Drug Resistant Organisms: None Reported Past Surgical History: Adenoidectomy, Hernia Repair, Joint Replacement, Orthopedic Surgery, Tonsillectomy Additional Past Surgical History / Comment(s): R kidney donor, kiesha hip replacement, L hand trigger finger sx, uvuloplasty, left carotid stent, bilateral inguinal hernia repair, deviated septum repair, colonoscopy, R cataract removal with lens-now has membrane problem and plugged R tear duct. Past Anesthesia/Blood Transfusion Reactions: No Reported Reaction Past Psychological History: No Psychological Hx Reported Smoking Status: Never smoker Past Alcohol Use History: None Reported Past Drug Use History: None Reported - Past Family History Father Family Medical History: CVA/TIA Additional Family Medical History / Comment(s): Father at 80 from stroke Mother Family Medical History: Renal Disease Additional Family Medical History / Comment(s): Mother at age 55 from polycystic kidney disease. Brother(s) Additional Family Medical History / Comment(s): Patient has 1 brother with multiple medical problems including diabetes. Sister(s) Family Medical History: Renal Disease Additional Family Medical History / Comment(s): Patient has one sister that at age 60 from kidney failure due to polycystic kidney disease. Daughter(s) Family Medical History: No Reported History Additional Family Medical History / Comment(s): Patient has one daughter with no major medical problems. Son(s) Additional Family Medical History / Comment(s): Patient has 5 sons. 2 at premature . One while skiing from a myocardial infarction at age 32. One son is alive with no major medical problems. General Exam Limitations: no limitations General appearance: alert, in no apparent distress Head exam: Present: atraumatic, normocephalic, normal inspection Neck exam: Present: normal inspection. Absent: tenderness, meningismus, lymphadenopathy Respiratory exam: Present: normal lung sounds bilaterally. Absent: respiratory distress, wheezes, rales, rhonchi, stridor Cardiovascular Exam: Present: regular rate, normal rhythm, normal heart sounds. Absent: systolic murmur, diastolic murmur, rubs, gallop, clicks GI/Abdominal exam: Present: soft, normal bowel sounds. Absent: distended, tenderness, guarding, rebound, rigid Extremities exam: Present: full ROM, tenderness (Posterior left calf), calf tenderness (To the left lower extremity), other (Patient is appear to have superficial bruising to the left forearm). Absent: pedal edema, joint swelling Back exam: Present: normal inspection Neurological exam: Present: alert, oriented X3 Psychiatric exam: Present: normal affect, normal mood Skin exam: Present: warm, dry, intact, normal color. Absent: rash Course Vital Signs 08/08/16 15:07 Temperature 98.6 F Pulse Rate 62 Respiratory 18 Rate Blood Pressure 113/56 O2 Sat by Pulse 98 Oximetry Medical Decision Making - Medical Decision Making 80-year-old male presents emergency department with a chief complaint of left calf pain with concern for DVT.at this time patient imaging is reviewed been reviewed and negative. This time we discussed care we discussed follow-up discussed return parameters all questions. Patient stated he understood the plan. This time we will be diuscharged home - Radiology Data Radiology results: report reviewed, image reviewed Disposition Clinical Impression: Pain of left calf, Traumatic ecchymosis of left forearm Disposition: HOME SELF-CARE Condition: Stable Instructions: Muscle Cramp (ED) Additional Instructions: Please use medication as discussed. Please follow up with family doctor if symptoms have not improved over the next two days. Please return to the emergency room if your symptoms increase or worsen or for any other concerns. Referrals: Luciana Ayala MD [Primary Care Provider] - 1-2 days Time of Disposition: 16:52
--- NOTE | 2016-08-08 16:14 | US ---
EXAMINATION TYPE: US venous doppler duplex LE LT DATE OF EXAM: 08/08/2016 4:01 PM COMPARISON: NONE CLINICAL HISTORY: Pain. Pain and edema left leg SIDE PERFORMED: Left TECHNIQUE: The lower extremity deep venous system is examined utilizing real time linear array sonog edward with graded compression, doppler sonography and color-flow sonography. VESSELS IMAGED: External Iliac Vein (EIV) Common Femoral Vein Deep Femoral Vein Greater Saphenous Vein * Femoral Vein Popliteal Vein Small Saphenous Vein * Proximal Calf Veins (* superficial vessels) Grayscale, color doppler, spectral doppler imaging performed of the deep veins of the left lower extr emity. There is normal flow, compressibility, vascular waveforms . Left Leg: No evidence of DVT IMPRESSION: No evidence for DVT.
--- NOTE | 2016-08-08 16:45 | XR ---
EXAMINATION TYPE: XR tibia fibula LT DATE OF EXAM: 08/08/2016 CLINICAL HISTORY: pain TECHNIQUE: AP and lateral images of the left tibia and fibula are obtained. COMPARISON: None. FINDINGS: There is no acute fracture/dislocation evident. The joint spaces appear within normal montes its. The overlying soft tissue appears unremarkable. IMPRESSION: There is no acute fracture or dislocation seen. ICD 10 NO FRACTURE, INITIAL EVALUATION
[2016-08-08 17:16] VITALS: BP 138/65; TEMP 97.5
== END 2016-08-08 17:10 | disposition home or self-care (01) ==
LOC: EC 14:48
DX: S50.12XA Contusion of left forearm, initial encounter (principal); M79.662 Pain in left lower leg; M79.89 Other specified soft tissue disorders; I10 Essential (primary) hypertension; M10.9 Gout, unspecified; M19.90 Unspecified osteoarthritis, unspecified site; Z79.82 Long term (current) use of aspirin; Z79.899 Other long term (current) drug therapy; Z91.030 Bee allergy status; Z85.828 Personal history of other malignant neoplasm of skin; Z98.890 Other specified postprocedural states; X58.XXXA Exposure to other specified factors, initial encounter
CPT/HCPCS: 99284

== ENCOUNTER → 2016-10-24 | Outpatient (CLI) | payer MEDICARE ==
--- NOTE | 2016-10-24 19:25 | US ---
EXAMINATION TYPE: US venous doppler duplex LE RT DATE OF EXAM: 10/24/2016 5:41 PM COMPARISON: NONE CLINICAL HISTORY: RLE Edema R60.9. SIDE PERFORMED: Right TECHNIQUE: The lower extremity deep venous system is examined utilizing real time linear array sonog edward with graded compression, doppler sonography and color-flow sonography. VESSELS IMAGED: External Iliac Vein (EIV) Common Femoral Vein Deep Femoral Vein Greater Saphenous Vein * Femoral Vein Popliteal Vein Small Saphenous Vein * Proximal Calf Veins (* superficial vessels) Right Leg: Negative for DVT No evidence of DVT right leg fluid pocket visualized medial posterior knee measuring 4.5 x 2.5 x 3.1 cm IMPRESSION: No evidence of deep venous thrombosis. Fluid collection consistent with popliteal cyst.
== END | disposition home or self-care (01) ==
LOC: RADUSMAIN 17:08
PROVIDERS: ATTEND Internal Medicine
DX: R60.9 Edema, unspecified (principal)

== ENCOUNTER 2017-01-06 11:51 | Emergency (ER) | payer MEDICARE ==
--- NOTE | 2017-01-06 12:03 | ED ---
General Adult HPI - General Chief complaint: Abdominal Pain Stated complaint: nausea, dizziness, abdominal pain Time Seen by Provider: 01/06/17 12:01 Source: patient, RN notes reviewed, old records reviewed Mode of arrival: wheelchair Limitations: no limitations - History of Present Illness Initial comments: This is an 81 male to the ED - Related Data Home Medications Medication Instructions Recorded Confirmed Allopurinol [Zyloprim] 300 mg PO HS 09/01/13 01/06/17 Hydroxyurea [Hydrea] 500 mg PO TID 09/01/13 01/06/17 hydrALAZINE HCL [Apresoline] 25 mg PO BID 09/01/13 01/06/17 traMADol HCl [Ultram] 50 mg PO Q8H PRN 04/04/15 01/06/17 Cholecalciferol [Vitamin D3] 2,000 unit PO DAILY 08/20/15 01/06/17 Aspirin 325 mg PO DAILY 08/02/16 01/06/17 EPINEPHrine (Auto Inject) [Epipen] 0.3 mg IM ONCE PRN 01/06/17 01/06/17 Hydrocodone/Acetaminophen [[place] 1 tab PO HS PRN 01/06/17 01/06/17 7.5-325] Simvastatin [Zocor] 20 mg PO HS 01/06/17 01/06/17 Allergies Allergy/AdvReac Type Severity Reaction Status Date / Time venom-honey bee Allergy Anaphylaxis Verified 01/06/17 13:16 [bee venom (honey bee)] Review of Systems ROS Statement: Those systems with pertinent positive or pertinent negative responses have been documented in the HPI. ROS Other: All systems not noted in ROS Statement are negative. Past Medical History Past Medical History: Cancer, CVA/TIA, Diabetes Mellitus, Eye Disorder, Hyperlipidemia, Hypertension, Osteoarthritis (OA), Sleep Apnea/CPAP/BIPAP Additional Past Medical History / Comment(s): Past lower GI bleed, diverticular dx, thrombocytosis-sees Dr. 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 History of Any Multi-Drug Resistant Organisms: None Reported Past Surgical History: Adenoidectomy, Hernia Repair, Joint Replacement, Orthopedic Surgery, Tonsillectomy Additional Past Surgical History / Comment(s): R kidney donor, kiesha hip replacement, L hand trigger finger sx, uvuloplasty, left carotid stent, bilateral inguinal hernia repair, deviated septum repair, colonoscopy, R cataract removal with lens-now has membrane problem and plugged R tear duct. Past Anesthesia/Blood Transfusion Reactions: No Reported Reaction Past Psychological History: No Psychological Hx Reported Smoking Status: Never smoker Past Alcohol Use History: None Reported Past Drug Use History: None Reported - Past Family History Father Family Medical History: CVA/TIA Additional Family Medical History / Comment(s): Father at 80 from stroke Mother Family Medical History: Renal Disease Additional Family Medical History / Comment(s): Mother at age 55 from polycystic kidney disease. Brother(s) Additional Family Medical History / Comment(s): Patient has 1 brother with multiple medical problems including diabetes. Sister(s) Family Medical History: Renal Disease Additional Family Medical History / Comment(s): Patient has one sister that at age 60 from kidney failure due to polycystic kidney disease. Daughter(s) Family Medical History: No Reported History Additional Family Medical History / Comment(s): Patient has one daughter with no major medical problems. Son(s) Additional Family Medical History / Comment(s): Patient has 5 sons. 2 at premature . One while skiing from a myocardial infarction at age 32. One son is alive with no major medical problems. General Exam Limitations: no limitations General appearance: alert, in no apparent distress Head exam: Present: atraumatic, normocephalic, normal inspection Eye exam: Present: normal appearance, PERRL, EOMI. Absent: scleral icterus, conjunctival injection, periorbital swelling ENT exam: Present: normal exam, mucous membranes moist Neck exam: Present: normal inspection. Absent: tenderness, meningismus, lymphadenopathy Respiratory exam: Present: normal lung sounds bilaterally. Absent: respiratory distress, wheezes, rales, rhonchi, stridor Cardiovascular Exam: Present: regular rate, normal rhythm, normal heart sounds. Absent: systolic murmur, diastolic murmur, rubs, gallop, clicks GI/Abdominal exam: Present: soft, tenderness (epigastric), normal bowel sounds. Absent: distended, guarding, rebound, rigid Extremities exam: Present: normal inspection, full ROM, normal capillary refill. Absent: tenderness, pedal edema, joint swelling, calf tenderness Back exam: Present: normal inspection Neurological exam: Present: alert, oriented X3, CN II-XII intact Psychiatric exam: Present: normal affect, normal mood Skin exam: Present: warm, dry, intact, normal color. Absent: rash Course Vital Signs 01/06/17 01/06/17 01/06/17 11:54 13:35 14:49 Temperature 96.8 F L 97.5 F L Pulse Rate 80 83 72 Respiratory 18 18 16 Rate Blood Pressure 128/81 137/62 144/69 O2 Sat by Pulse 99 93 L 100 Oximetry 01/06/17 15:15 Temperature Pulse Rate 72 Respiratory 16 Rate Blood Pressure O2 Sat by Pulse Oximetry - Reevaluation(s) Reevaluation #1: 01/06/17 12:03 Patient feeling much better with pain control Reevaluation #2: 01/06/17 15:24 at this point patient has pain control and is able to tolerate oral intake EKG Findings - EKG Comments: EKG Findings:: EKG shows sinus rhythm rate of 73, MT 174, QRS 80, QTC 4 Medical Decision Making - Medical Decision Making 81 male to the ED co abdominal pain, diarrheal illness, fluid in smnall bowel, pain is currently resolved, patient is without fever, has GB disease and will follow up w Gen Sx - Lab Data Result diagrams: 01/06/17 12:28 01/06/17 12:28 Lab Results 01/06/17 01/06/17 01/06/17 Range/Units 12:28 12:28 12:28 WBC 5.1 (3.8-10.6) k/uL RBC 3.60 L (4.30-5.90) m/uL Hgb 13.4 (13.0-17.5) gm/dL Hct 42.2 (39.0-53.0) % MCV 117.4 H (80.0-100.0) fL MCH 37.2 H (25.0-35.0) pg MCHC 31.7 (31.0-37.0) g/dL RDW 17.4 H (11.5-15.5) % Plt Count 726 H (150-450) k/uL Neutrophils % 74 % Lymphocytes % 12 % Monocytes % 5 % Eosinophils % 1 % Basophils % 2 % Neutrophils # 3.8 (1.3-7.7) k/uL Lymphocytes # 0.6 L (1.0-4.8) k/uL Monocytes # 0.3 (0-1.0) k/uL Eosinophils # 0.1 (0-0.7) k/uL Basophils # 0.1 (0-0.2) k/uL Polychromasia Present Hypochromasia Slight Poikilocytosis Moderate Anisocytosis Slight Macrocytosis Marked PT (9.0-12.0) sec INR (<1.2) APTT (22.0-30.0) sec Sodium 141 (137-145) mmol/L Potassium 5.0 (3.5-5.1) mmol/L Chloride 109 H (98-107) mmol/L Carbon Dioxide 23 (22-30) mmol/L Anion Gap 9 mmol/L BUN 22 H (9-20) mg/dL Creatinine 1.34 H (0.66-1.25) mg/dL Est GFR (MDRD) Af Amer >60 (>60 ml/min/1.73 sqM) Est GFR (MDRD) Non-Af 51 (>60 ml/min/1.73 sqM) Glucose 127 H (74-99) mg/dL Plasma Lactic Acid Ganesh (0.7-2.0) mmol/L Calcium 9.7 (8.4-10.2) mg/dL Total Bilirubin 0.6 (0.2-1.3) mg/dL AST 26 (17-59) U/L ALT 26 (21-72) U/L Alkaline Phosphatase 47 (38-126) U/L Total Creatine Kinase <20 L (55-170) U/L CK-MB (CK-2) 0.5 (0.0-2.4) ng/mL CK-MB (CK-2) Rel Index Troponin I <0.012 (0.000-0.034) ng/mL Total Protein 6.8 (6.3-8.2) g/dL Albumin 4.2 (3.5-5.0) g/dL Amylase 73 (30-110) U/L Lipase 91 (23-300) U/L Urine Color Urine Appearance (Clear) Urine pH (5.0-8.0) Ur Specific [place] (1.001-1.035) Urine Protein (Negative) Urine Glucose (UA) (Negative) Urine Ketones (Negative) Urine Blood (Negative) Urine Nitrite (Negative) Urine Bilirubin (Negative) Urine Urobilinogen (<2.0) mg/dL Ur Leukocyte Esterase (Negative) 01/06/17 01/06/17 01/06/17 Range/Units 12:28 12:28 12:50 WBC (3.8-10.6) k/uL RBC (4.30-5.90) m/uL Hgb (13.0-17.5) gm/dL Hct (39.0-53.0) % MCV (80.0-100.0) fL MCH (25.0-35.0) pg MCHC (31.0-37.0) g/dL RDW (11.5-15.5) % Plt Count (150-450) k/uL Neutrophils % % Lymphocytes % % Monocytes % % Eosinophils % % Basophils % % Neutrophils # (1.3-7.7) k/uL Lymphocytes # (1.0-4.8) k/uL Monocytes # (0-1.0) k/uL Eosinophils # (0-0.7) k/uL Basophils # (0-0.2) k/uL Polychromasia Hypochromasia Poikilocytosis Anisocytosis Macrocytosis PT 11.3 (9.0-12.0) sec INR 1.1 (<1.2) APTT 23.1 (22.0-30.0) sec Sodium (137-145) mmol/L Potassium (3.5-5.1) mmol/L Chloride (98-107) mmol/L Carbon Dioxide (22-30) mmol/L Anion Gap mmol/L BUN (9-20) mg/dL Creatinine (0.66-1.25) mg/dL Est GFR (MDRD) Af Amer (>60 ml/min/1.73 sqM) Est GFR (MDRD) Non-Af (>60 ml/min/1.73 sqM) Glucose (74-99) mg/dL Plasma Lactic Acid Ganesh 1.8 (0.7-2.0) mmol/L Calcium (8.4-10.2) mg/dL Total Bilirubin (0.2-1.3) mg/dL AST (17-59) U/L ALT (21-72) U/L Alkaline Phosphatase (38-126) U/L Total Creatine Kinase (55-170) U/L CK-MB (CK-2) (0.0-2.4) ng/mL CK-MB (CK-2) Rel Index Troponin I (0.000-0.034) ng/mL Total Protein (6.3-8.2) g/dL Albumin (3.5-5.0) g/dL Amylase (30-110) U/L Lipase (23-300) U/L Urine Color Yellow Urine Appearance Clear (Clear) Urine pH 5.5 (5.0-8.0) Ur Specific [place] 1.014 (1.001-1.035) Urine Protein Trace H (Negative) Urine Glucose (UA) Negative (Negative) Urine Ketones Negative (Negative) Urine Blood Negative (Negative) Urine Nitrite Negative (Negative) Urine Bilirubin Negative (Negative) Urine Urobilinogen <2.0 (<2.0) mg/dL Ur Leukocyte Esterase Negative (Negative) Disposition Clinical Impression: Abdominal pain Disposition: HOME SELF-CARE Condition: Good Instructions: Abdominal Pain (ED) Referrals: Laurita Sandra MD [Primary Care Provider] - 1-2 days
[2017-01-06] MEDS ORDERED: PANTOPRAZOLE 40 MG/10 ML VIAL IVP STA (12:08)
[2017-01-06] MEDS ORDERED: SODIUM CHLORIDE 0.9% 1,000 ML IV STA (12:08)
[2017-01-06] MEDS ORDERED: MORPHINE SULFATE 2 MG/ML SYRINGE IVP STA ×2 (12:08→14:50)
[2017-01-06] MEDS ORDERED: ONDANSETRON 4 MG/2 ML VIAL IVP STA (12:08)
[2017-01-06] MEDS ORDERED: SODIUM CHLORIDE 0.9% 500 ML IV STA (12:08)
[2017-01-06 12:48] LABS: Anisocytosis Slight; Aty Lym Flag Slight; Basophils # (A) 0.1 k/uL (0-0.2); Basophils % (A) 2 %; CH 39.8; CHCM 33.9; Eosinophils # (A) 0.1 k/uL (0-0.7); Eosinophils % (A) 1 %; HCT 42.2 % (39.0-53.0); HDW 4.04; HGB 13.4 gm/dL (13.0-17.5); Hypochromasia Slight; Luc # (Auto) 0.28; Luc % (Auto) 6; Lymphocytes # (A) 0.6 k/uL (1.0-4.8); Lymphocytes % (A) 12 %; MCH 37.2 pg (25.0-35.0); MCHC 31.7 g/dL (31.0-37.0); MCV 117.4 fL (80.0-100.0); Macrocytosis Marked; Mean Platelet Volume 7.2; Monocytes # (A) 0.3 k/uL (0-1.0); Monocytes % (A) 5 %; Neutrophils # (A) 3.8 k/uL (1.3-7.7); Neutrophils % (A) 74 %; Poikilocytosis Moderate; RDW 17.4 % (11.5-15.5); WBC 5.1 k/uL (3.8-10.6); WBC (Perox) 5.16
[2017-01-06 12:51] LABS: ALT 26 U/L (21-72); AST 26 U/L (17-59); Alkaline Phosphatase 47 U/L (38-126); Amylase 73 U/L (30-110); Anion Gap 9 mmol/L; Blood Urea Nitrogen 22 mg/dL (9-20); Calcium 9.7 mg/dL (8.4-10.2); Carbon Dioxide 23 mmol/L (22-30); Chloride 109 mmol/L (98-107); Glucose 127 mg/dL (74-99); INR 1.1 (<1.2); Non-African American GFR(MDRD) 51 (>60 ml/min/1.73 sqM); Partial Thromboplastin Time 23.1 sec (22.0-30.0); Prothrombin Time 11.3 sec (9.0-12.0); Sodium 141 mmol/L (137-145); Total Bilirubin 0.6 mg/dL (0.2-1.3); Total Protein 6.8 g/dL (6.3-8.2)
[2017-01-06] MEDS ORDERED: RX INFO: IV CONTRAST WAS GIVEN 1 EACH MISC MISCELLANE PRN (12:58)
[2017-01-06 13:06] LABS: Creatine Kinase <20 U/L (55-170)
[2017-01-06 13:10] LABS: Appearance,Urine Clear (Clear); Bilirubin,Urine Negative (Negative); Glucose,Urine (UA) Negative (Negative); Ketones,Urine Negative (Negative); Leukocyte Esterase,Urine Negative (Negative); Nitrite,Urine Negative (Negative); PH, Urine 5.5 (5.0-8.0); Protein,Urine Trace (Negative); Specific Gravity,Urine 1.014 (1.001-1.035); UA Billing (MACRO vs. MICRO) CHEM; Urobilinogen,Urine <2.0 mg/dL (<2.0)
[2017-01-06 13:18] LABS: Polychromasia Present
[2017-01-06 13:19] LABS: Creatine Kinase MB 0.5 ng/mL (0.0-2.4); Troponin I <0.012 ng/mL (0.000-0.034)
--- NOTE | 2017-01-06 13:49 | CT ---
EXAMINATION TYPE: CT angio chest DATE OF EXAM: 01/06/2017 COMPARISON: 29/10/2015 HISTORY: Pain CONTRAST: 80ml of visipaque . Contrast-enhanced CT of the chest was performed through the course of the pulmonary arteries with jair g and mediastinal window settings submitted. 3D reconstruction with MIP imaging was also performed. PULMONARY ARTERIES: The pulmonary arteries and their major tributaries are patent. I do not see karen dence for sizable filling defect to suggest pulmonary embolic process. LUNGS: The lungs are clear and free of infiltrate. No evidence for atelectasis. 5 mm nodular density left midlung zone at the level of the major fissure. Finding is unchanged from prior examination. No pleural effusion. MEDIASTINUM: Thoracic aorta is of normal caliber . The heart is not enlarged. No evidence for media stinal mass. No mediastinal lymph nodes greater than 1cm. HILAR STRUCTURES: No evidence for mass. No hilar lymph nodes greater than 1 cm. UPPER ABDOMEN: No significant abnormality is seen. IMPRESSION: 1. No evidence for Pulmonary embolism at this time.
--- NOTE | 2017-01-06 13:52 | CT ---
EXAMINATION TYPE: CT abdomen pelvis w con DATE OF EXAM: 01/06/2017 COMPARISON: NONE HISTORY: Pain CONTRAST: 80 cc Visipaque FINDINGS: LUNG BASES-: No visible nodule. No infiltrate. LIVER/GB: No calcified gallstones. No space occupying hepatic lesion. Biliary tree is of normal ca liber. PANCREAS: No inflammation. No distinct mass. SPLEEN: No splenic enlargement. No lesion seen. ADRENALS: No nodule. No thickening. KIDNEYS/BLADDER: No hydronephrosis. No nephrolithiasis. No disctinct renal mass. Urinary bladder g rossly unremarkable. BOWEL: Normal appendix. Fluid distended small bowel may reflect enteritis. Large bowel is of normal c aliber although fluid-filled contents right hemicolon. GENITAL ORGANS: No gross abnormality. LYMPH NODES: No greater than 1cm abdominal or pelvic lymph nodes are appreciated. AORTA: No significant abnormality. OSSEOUS STRUCTURES: Bilateral hip prostheses. Generative changes lumbar spine. OTHER: No significant additional abnormality is seen. IMPRESSION: 1. Orally for small bowel enteritis.
[2017-01-06] MEDS ORDERED: MAG HYDROX/AL HYDROX/SIMETH 30 ML, HYOSCYAMINE ELIXIR 10 ML, CIMETIDINE HCL 300 MG, LID... PO STA ×4 (14:50)
[2017-01-06 14:52] VITALS: PULSE 72; RESP 16
--- NOTE | 2017-01-06 15:03 | US ---
EXAMINATION TYPE: US gallbladder DATE OF EXAM: 01/06/2017 COMPARISON: NONE CLINICAL HISTORY: Pain. EXAM MEASUREMENTS: Liver Length: 14.3 cm Gallbladder Wall: 0.5 cm CBD: 0.2 cm Right Kidney: Surgically absent cm Severe midline bowel gas obscuring organs. Pancreas: Obscured by bowel gas Liver: left lobe not visualized, right lobe seen only intercostal, limited views Gallbladder: there appears to be some dependant sludge, wall somewhat thickened Evidence for sonographic Santiago's sign: no CBD: very limited visualization Right Kidney: Surgically absent IMPRESSION: 1 mild gallbladder wall thickening and gallbladder sludge. Common bile duct is of normal caliber. No pericholecystic fluid identified.
[2017-01-06 15:38] VITALS: BP 142/68; TEMP 97.6
== END 2017-01-06 15:30 | disposition home or self-care (01) ==
LOC: EC 11:51
DX: R10.13 Epigastric pain (principal); R19.7 Diarrhea, unspecified; R11.0 Nausea; E78.5 Hyperlipidemia, unspecified; I10 Essential (primary) hypertension; M19.90 Unspecified osteoarthritis, unspecified site; M10.9 Gout, unspecified; Z79.82 Long term (current) use of aspirin; Z79.899 Other long term (current) drug therapy; Z91.030 Bee allergy status; Z85.828 Personal history of other malignant neoplasm of skin; Z98.890 Other specified postprocedural states
CPT/HCPCS: 36415; 93005; 80053; 82150; 82550; 82553; 83605; 83690; 84484; 85025; 85610; 85730; 81003; 87086; 76705; 71275; 74177; 99285; 96374; 96375 ×2; 96376; 96361; Q9967; J2405; J2270; C9113

== ENCOUNTER 2017-06-13 20:36 | Emergency (ER) | payer MEDICARE ==
[2017-06-13] MEDS ORDERED: MORPHINE SULFATE 4 MG/ML SYRINGE IVP STA ×2 (20:57→22:10)
--- NOTE | 2017-06-13 20:59 | ED ---
Fall HPI - General Chief Complaint: Fall Stated Complaint: fall/poss dislocated shoulder Time Seen by Provider: 06/13/17 20:52 Source: patient Mode of arrival: wheelchair - History of Present Illness Initial Comments: 21-year-old male presenting after a fall down 5 stairs. Patient states that he lost his footing and slid down the stairs and put his left arm up to try to brace himself. He then had severe pain in his left shoulder. Patient states he is able to ambulate after the fall. He denies any head injury, LOC, anticoagulation use. Denies any pain other than the shoulder. It's his last meal was at 8 PM. - Related Data Home Medications Medication Instructions Recorded Confirmed Allopurinol [Zyloprim] 300 mg PO HS 09/01/13 06/13/17 Hydroxyurea [Hydrea] 500 mg PO QID 09/01/13 06/13/17 hydrALAZINE HCL [Apresoline] 25 mg PO DAILY 09/01/13 06/13/17 Cholecalciferol [Vitamin D3] 2,000 unit PO DAILY 08/20/15 06/13/17 Aspirin 325 mg PO DAILY 08/02/16 06/13/17 EPINEPHrine (Auto Inject) [Epipen] 0.3 mg IM ONCE PRN 01/06/17 06/13/17 Gabapentin [Neurontin] 300 mg PO HS 06/13/17 06/13/17 Gentamicin 0.1% Cream 1 applic TOPICAL DAILY 06/13/17 06/13/17 Pantoprazole Sodium [Protonix] 40 mg PO DAILY 06/13/17 06/13/17 Turmeric Root Extract [Turmeric] 500 mg PO DAILY 06/13/17 06/13/17 Previous Rx's Medication Instructions Recorded HYDROcodone/APAP 5-325MG [[place] 1 tab PO Q6HR PRN #10 tab 06/13/17 5-325] Ibuprofen [Motrin] 600 mg PO Q6HR PRN #20 tab 06/13/17 Allergies Allergy/AdvReac Type Severity Reaction Status Date / Time venom-honey bee Allergy Anaphylaxis Verified 06/13/17 21:46 [bee venom (honey bee)] Review of Systems ROS Statement: Those systems with pertinent positive or pertinent negative responses have been documented in the HPI. Review of Systems Constitutional: Denies fever, chills Eyes: Denies change in vision, Denies pain Ears, nose, mouth, throat: Denies headaches, Denies sore throat Cardiovascular: Denies chest pain. Denies palpitations Respiratory: Denies shortness of breath, Denies cough Gastrointestinal: Denies abdominal pain. Denies nausea, vomiting, diarrhea. Genitourinary: Denies hematuria, Denies infections Musculoskeletal: Positive shoulder pain. Positive limited ROM Integumentary: Denies rash Neurological: Denies headache, focal weakness, focal numbness Psychiatric: Denies anxiety, Denies depression Hematologic/Lymphatic: Denies easy bleeding or bruising ROS Other: All systems not noted in ROS Statement are negative. Past Medical History Past Medical History: Cancer, CVA/TIA, Diabetes Mellitus, Eye Disorder, Hyperlipidemia, Hypertension, Osteoarthritis (OA), Sleep Apnea/CPAP/BIPAP Additional Past Medical History / Comment(s): Past lower GI bleed, diverticular dx, thrombocytosis-sees Dr. 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 History of Any Multi-Drug Resistant Organisms: None Reported Past Surgical History: Adenoidectomy, Hernia Repair, Joint Replacement, Orthopedic Surgery, Tonsillectomy Additional Past Surgical History / Comment(s): R kidney donor, kiesha hip replacement, L hand trigger finger sx, uvuloplasty, left carotid stent, bilateral inguinal hernia repair, deviated septum repair, colonoscopy, R cataract removal with lens-now has membrane problem and plugged R tear duct. Past Anesthesia/Blood Transfusion Reactions: No Reported Reaction Past Psychological History: No Psychological Hx Reported Smoking Status: Never smoker Past Alcohol Use History: None Reported Past Drug Use History: None Reported - Past Family History Father Family Medical History: CVA/TIA Additional Family Medical History / Comment(s): Father at 80 from stroke Mother Family Medical History: Renal Disease Additional Family Medical History / Comment(s): Mother at age 55 from polycystic kidney disease. Brother(s) Additional Family Medical History / Comment(s): Patient has 1 brother with multiple medical problems including diabetes. Sister(s) Family Medical History: Renal Disease Additional Family Medical History / Comment(s): Patient has one sister that at age 60 from kidney failure due to polycystic kidney disease. Daughter(s) Family Medical History: No Reported History Additional Family Medical History / Comment(s): Patient has one daughter with no major medical problems. Son(s) Additional Family Medical History / Comment(s): Patient has 5 sons. 2 at premature . One while skiing from a myocardial infarction at age 32. One son is alive with no major medical problems. General Exam - General Exam Comments Initial Comments: General: Awake, alert, No acute Distress HENT: Normocephalic. Atraumatic Eyes: PERRL. EOMI. No scleral icterus. No injected conjunctiva Neck: Full ROM. no midline C-spine tenderness. Chest/Lungs: Clear to auscultation bilaterally. No wheezing, rhonchi, or rales Cardiac: Regular rate, rhythm. No murmurs or rubs Abdomen/GI: Soft, nontender, nondistended. No rebound, guarding, or rigidity. Musculoskeletal: Left shoulder deformity with pain. No thoracic or midline back pain. No pelvic instability or pain. Remainder of mskt exam unremarkable. Skin: Warm, dry, intact Neurologic: A/Ox3, no weakness, no sensory deficit, no abnormal gait, no coordination deficit Limitations: no limitations Course Vital Signs 06/13/17 06/13/17 06/13/17 20:46 22:20 23:21 Temperature 96.9 F L 97.9 F Pulse Rate 72 74 78 Respiratory 28 H 18 18 Rate Blood Pressure 136/64 141/67 161/70 O2 Sat by Pulse 99 96 97 Oximetry Medical Decision Making - Medical Decision Making 81-year-old male presenting after a fall. On initial exam the patient is awake and alert. He is in discomfort secondary to shoulder pain. Patient's shoulder x-ray showed a Bankart lesion but no dislocation. There was swelling to the left deltopectoral groove. A CT was done which was negative. CT head and cervical spine are negative. The patient's pain improved and he was able to sleep in the department. No further emergent workup is indicated. At this time the patient is stable for outpatient follow-up with an orthopedic surgeon. Discussed discharge plan with patient and and his who were agreeable to plan. Disposition Clinical Impression: Fall, Bankart lesion of left shoulder, Shoulder pain, left Disposition: HOME SELF-CARE Condition: Good Instructions: Fall Prevention for Older Adults (ED), Shoulder Pain (ED) Prescriptions: HYDROcodone/APAP 5-325MG [[place] 5-325] 1 tab PO Q6HR PRN #10 tab PRN Reason: Pain Ibuprofen [Motrin] 600 mg PO Q6HR PRN #20 tab PRN Reason: Pain Is patient prescribed a controlled substance at d/c from ED?: Yes If prescribed controlled substance>3 days was MAPS reviewed?: Yes When asked, does pt state using other controlled substances?: No Referrals: Laurita Sandra MD [Primary Care Provider] - 1-2 days Wellington Santiago MD [STAFF PHYSICIAN] - 1-2 days
--- NOTE | 2017-06-13 22:00 | XR ---
EXAMINATION TYPE: XR shoulder complete LT DATE OF EXAM: 06/13/2017 CLINICAL HISTORY: Left shoulder pain after a fall TECHNIQUE: Three views of the left shoulder are obtained. COMPARISON: None. FINDINGS: Depression of the posterior lateral left humerus could relate to impaction fracture. This i s of unknown chronicity and is seen in the setting of anterior dislocation and relocation. Additional ly the humeral head is slightly high riding and could relate to underlying chronic rotator cuff tear. Moderate glenohumeral and acromioclavicular arthropathy are seen as joint space narrowing, sclerosis and small marginal osteophytes. The acromioclavicular and glenohumeral joint spaces appear within n ormal limits. The visualized ribs are intact and unremarkable. IMPRESSION: 1. Bankart impaction fracture of the posterior lateral humeral head is age indeterminant and is seen in the setting of anterior dislocation and relocation. Correlate with clinical history. 2. Moderate glenohumeral arthropathy and acromioclavicular arthropathy. 3. High riding humeral head may represent underlying chronic rotator cuff injury.
[2017-06-13 22:21] VITALS: RESP 18
--- NOTE | 2017-06-13 23:10 | CT ---
EXAM: CT Left Upper Extremity Without Intravenous Contrast, Shoulder CLINICAL HISTORY: Fall Reason: Pain TECHNIQUE: Axial computed tomography images of the left shoulder without intravenous contrast. CTDI is 19.15 mGy and DLP is 415.55 mGy-cm. This CT exam was performed using one or more of the following dose reduction techniques: automated exposure control, adjustment of the mA and/or kV according to patient size, and/or use of iterative reconstruction technique. COMPARISON: Left shoulder radiographs on 06/13/2017 FINDINGS: Bones/joints: No acute fracture or dislocation identified. Degenerative changes of the left acromioclavicular joint. Degenerative changes of the left glenohumeral joint. High riding left humeral head, compatible with chronic rotator cuff tears. No definite Hill-Sachs deformity identified. Soft tissues: Normal. Other: Stent in the left common carotid artery. Mild ectasia of the ascending aorta, measuring 4.1 cm in diameter. Atherosclerotic changes of the aorta. Mild dependent atelectasis in the visualized left lung. IMPRESSION: No acute abnormality identified.
--- NOTE | 2017-06-13 23:17 | CT ---
EXAM: CT Head Without Intravenous Contrast CLINICAL HISTORY: Fall Reason: Pain TECHNIQUE: Axial computed tomography images of the head/brain without intravenous contrast. CTDI is 59.43 mGy and DLP is 1286.64 mGy-cm. This CT exam was performed using one or more of the following dose reduction techniques: automated exposure control, adjustment of the mA and/or kV according to patient size, and/or use of iterative reconstruction technique. COMPARISON: CT head on 05/21/2014 FINDINGS: Brain: No acute infarct or hemorrhage identified. No extra-axial fluid collection. No mass effect or midline shift. Slightly increased scattered areas of hypoattenuation in the supratentorial white matter likely represent chronic small vessel ischemic changes. Stable small amount of encephalomalacia in the left frontal lobe at the vertex. Mild calcifications in the basal ganglia. Ventricles and sulci: Similar mild prominence of the ventricles and sulci is likely secondary to cerebral volume loss. Skull: Old fracture deformity of the left lamina papyracea. No bony lesion or fracture. Subcutaneous tissues: Normal. Sinuses: Minimal mucosal thickening in the right maxillary sinus. Orbits: Right lens implant. Other: Atherosclerotic ossifications in the intracranial vasculature. IMPRESSION: 1. No acute intracranial abnormality. 2. Slightly increased chronic small vessel ischemic changes and similar mild cerebral volume loss. Stable small amount of encephalomalacia in the left frontal lobe. EXAM: CT Cervical Spine Without Intravenous Contrast CLINICAL HISTORY: Fall Reason: Pain TECHNIQUE: Axial computed tomography images of the cervical spine without intravenous contrast. CTDI is 31.13 mGy and DLP is 723.85 mGy-cm. This CT exam was performed using one or more of the following dose reduction techniques: automated exposure control, adjustment of the mA and/or kV according to patient size, and/or use of iterative reconstruction technique. COMPARISON: CT C-spine on 05/21/2014 FINDINGS: Bones: Straightening of the normal cervical lordosis which may be at least in part related to patient positioning/neck brace. No acute fracture or bony lesion. Stable ossifications in the nuchal ligament are likely related to remote trauma. 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 Disc spaces: No subluxation. Stable prominent degenerative changes of the spine. Soft tissues: Normal. Other: Left carotid artery stent. Calcifications in the right carotid artery. Interlobular septal thickening at the lung apices. IMPRESSION: No acute traumatic abnormality.
[2017-06-13 23:22] VITALS: BP 161/70; PULSE 78; TEMP 97.9
== END 2017-06-14 00:09 | disposition home or self-care (01) ==
LOC: EC 20:36
DX: S49.92XA Unspecified injury of left shoulder and upper arm, initial encounter (principal); E78.5 Hyperlipidemia, unspecified; I10 Essential (primary) hypertension; G47.30 Sleep apnea, unspecified; Z86.73 Personal history of transient ischemic attack (TIA), and cerebral infarction without residual deficits; Z99.89 Dependence on other enabling machines and devices; Z85.828 Personal history of other malignant neoplasm of skin; Z79.82 Long term (current) use of aspirin; Z79.899 Other long term (current) drug therapy; Z91.030 Bee allergy status; W10.9XXA Fall (on) (from) unspecified stairs and steps, initial encounter; Y92.009 Unspecified place in unspecified non-institutional (private) residence as the place of occurrence of the external cause
CPT/HCPCS: 73030; 72125; 70450; 73200; 99284; 96374; 96376; L3670; J2270

== ENCOUNTER → 2017-07-01 | Outpatient (CLI) | payer MEDICARE ==
--- NOTE | 2017-07-01 21:02 | MR ---
EXAMINATION TYPE: MR cervical spine wo con DATE OF EXAM: 07/01/2017 6:40 PM COMPARISON: April 01, 2014 HISTORY: Neck/kiesha shoulder pain, BUE weakness x years Multiplanar MultiSpin echo imaging of the cervical spine was performed. C2-C3: No evidence for degenerative disc disease. No disc bulge/herniation or protrusion. No Canal stenosis. Foramina are patent bilaterally. C3-C4: Mild disc desiccation noted. No disc bulge/herniation or protrusion. No Canal stenosis. Gener ative change cervical apophyseal joints with mild left foraminal encroachment. C4-C5: Moderate disc desiccation. Grade 1 anterolisthesis of C4 on C5 measuring 2 mm. Posterocentral disc protrusion. Progressive central stenosis. Mild/moderate in degree. No evidence for compressive m yelopathy. C5-C6: Moderate disc desiccation. Broad-based subligamentous disc disc herniation paracentrally and t o the left with effacement of the ventral thecal sac and left foraminal encroachment. There is mild c ord contact again noted. Constriction of the thecal sac with borderline to mild central stenosis. C6-C7 :moderate to severe disc desiccation. Broad-based subligamentous left paracentral disc herniati on with effacement of the ventral thecal sac and mild cord contact. Left foraminal encroachment again noted as well as mild central stenosis. C7-T1: No evidence for degenerative disc disease. No disc bulge/herniation or protrusion. No Canal stenosis. Foramina are patent bilaterally. Cervical segments are intact. There is normal alignment. Cervical spinal cord is of normal signal. Craniovertebral junction relationships are within normal limits. IMPRESSION: 1. Multi level degenerative disc disease. 2. Progressive central stenosis at C4-5, C5-6 and C6-7. See above.
== END | disposition home or self-care (01) ==
LOC: RADMRIMAIN 18:05
PROVIDERS: ATTEND Internal Medicine
DX: M48.02 Spinal stenosis, cervical region (principal); M50.222 Other cervical disc displacement at C5-C6 level; M43.12 Spondylolisthesis, cervical region; M50.30 Other cervical disc degeneration, unspecified cervical region
CPT/HCPCS: 72141

== ENCOUNTER → 2017-08-01 | Outpatient (CLI) | payer MEDICARE ==
[2017-08-01 12:14] VITALS: BP 151/67; PULSE 65; RESP 16
--- NOTE | 2017-08-01 14:21 | P.PAINCN ---
History of Present Illness - Reason for Consult Consult date: 08/01/17 - History of Present Illness This is a 21 years old male with a chronic history of severe neck pain and low back pain, he was diagnosed with rheumatic fever when he was young, and he reported that he had neck pain and low back pain all his life, but she reported that the intensity of the pain increased over the last 1 year, he denies any initiating event, and he reported that the neck pain associated with numbness and tingling in his right hand, he denies any motor or sensory deficit, and he reported that he has some low back pain ,the increase with any activity, he denies any motor or sensory deficits he denies any change in the bowel movement or urination and denies any fever or night sweats, is currently using Foster 5/ 325 every 6 hours when necessary and he is on Neurontin 300 mg daily at bedtime and is getting prescriptions refilled from his primary care, he denies any side effect of the medication, and he reported the current medication is not helping him enough to control his pain Past Medical History Past Medical History: Cancer, CVA/TIA, Eye Disorder, Hyperlipidemia, Hypertension, Osteoarthritis (OA), Sleep Apnea/CPAP/BIPAP Additional Past Medical History / Comment(s): Past lower GI bleed, diverticular dx, thrombocytosis-sees Dr. 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 History of Any Multi-Drug Resistant Organisms: None Reported Past Surgical History: Adenoidectomy, Hernia Repair, Joint Replacement, Orthopedic Surgery, Tonsillectomy Additional Past Surgical History / Comment(s): R kidney donor, kiesha hip replacement, L hand trigger finger sx, uvuloplasty, left carotid stent, bilateral inguinal hernia repair, deviated septum repair, colonoscopy, R cataract removal with lens-now has membrane problem and plugged R tear duct. Past Anesthesia/Blood Transfusion Reactions: No Reported Reaction Past Psychological History: No Psychological Hx Reported Additional Psychological History / Comment(s): Pt resides with his spouse. He is independent. He works daily. Smoking Status: Never smoker Past Alcohol Use History: None Reported Additional Past Alcohol Use History / Comment(s): Pt drinks 2 [place] drinks per day. Last drank yesterday 08/01/16. Past Drug Use History: None Reported - Past Family History Father Family Medical History: CVA/TIA Additional Family Medical History / Comment(s): Father at 80 from stroke Mother Family Medical History: Renal Disease Additional Family Medical History / Comment(s): Mother at age 55 from polycystic kidney disease. Brother(s) Additional Family Medical History / Comment(s): Patient has 1 brother with multiple medical problems including diabetes. Sister(s) Family Medical History: Renal Disease Additional Family Medical History / Comment(s): Patient has one sister that at age 60 from kidney failure due to polycystic kidney disease. Daughter(s) Family Medical History: No Reported History Additional Family Medical History / Comment(s): Patient has one daughter with no major medical problems. Son(s) Additional Family Medical History / Comment(s): Patient has 5 sons. 2 at premature . One while skiing from a myocardial infarction at age 32. One son is alive with no major medical problems. Medications and Allergies Home Medications Medication Instructions Recorded Confirmed Type Allopurinol [Zyloprim] 300 mg PO HS 09/01/13 08/01/17 History Hydroxyurea [Hydrea] 500 mg PO TID 09/01/13 08/01/17 History hydrALAZINE HCL [Apresoline] 25 mg PO DAILY 09/01/13 08/01/17 History Cholecalciferol [Vitamin D3] 2,000 unit PO DAILY 08/20/15 08/01/17 History Aspirin 325 mg PO DAILY 08/02/16 08/01/17 History EPINEPHrine (Auto Inject) [Epipen] 0.3 mg IM ONCE PRN 01/06/17 06/13/17 History Gabapentin [Neurontin] 300 mg PO HS 06/13/17 08/01/17 History Gentamicin 0.1% Cream 1 applic TOPICAL DAILY 06/13/17 08/01/17 History HYDROcodone/APAP 5-325MG [Foster 1 tab PO Q6HR PRN #10 tab 06/13/17 08/01/17 Rx 5-325] Pantoprazole Sodium [Protonix] 40 mg PO DAILY 06/13/17 08/01/17 History Turmeric Root Extract [Turmeric] 500 mg PO DAILY 06/13/17 08/01/17 History Allergies Allergy/AdvReac Type Severity Reaction Status Date / Time venom-honey bee Allergy Anaphylaxis Verified 08/01/17 11:49 [bee venom (honey bee)] Physical Exam Vitals: Vital Signs Pulse Resp BP 08/01/17 11:56 65 16 151/67 Intake and Output 07/31/17 08/01/17 08/01/17 22:59 06:59 14:59 Other: Weight 92.986 kg Social history : not smoker , NO ETOH , NO Illegal drugs use . Family history : positive for Review of Systems : 1- Constitutional : no chills , no fever , no night sweats , 2- Ears : no ear discharge , no change in hearing 3-Nose, Mouth ,Throat ; no bleeding gums, no sore throat , no epistaxis , 4-Cardiovascular : Denies chest pain, , no orthopnea , no palpitation 5-Respiratory : Denies cough , no dyspnea , no hemoptysis 6-Gastrointestinal :, no change in bowel habits , no coffee- ground emesis . 7-Genitourinary : No hematuria , no discharge , no incontinence, 8-Musculoskeletal : No gait dysfunction , report low back pain , 9- Neurological : no ataxia , no tremor , no sezure , 10-Psychatric , no suicidal ideation no hallucination 11- Endocrine : no cold intolerence , no polyuria , no polydypsia , 12-Hematologic : no easy bleeding , no easy brusing , 13-Allergic / immunology : no angioedema , no wheezing ,no allergic rhinitis 14-Integumentary : no brttle nails , no change hair / nails , no foot/leg ulcers . Physical Examinations : 1-Constitutional : Cooperative , not in acute distress . 2-HEENT : nech ; supple , no Lymphadenopathy , no Thyromegaly , :eyes , no icterus, no photophobia . ENT : , normal oropharynx , no Thrush 3- Respiratory : Chest clear to auscultations Bilaterally , no wheezing . 4- Cardiovascular : regular rate and rhythem , S1 , S2 , no S3 , no S4. 5- Gastrointestinal: abdomen soft no tenderness , no organomegally . 6- Genitourinary : Defferred . 7-Integumentary : No cellulitis , no ulcers , normal skin turgor , no cyanotic . 8- neurologic : Cranial nerve II to XII intact , no focal neurological deffecit 9-psychatric : alert , oriented X 3 , appropriate affect , intact judgment and insight . 10-Lymphatic : no Lymphadenopathy. 11- musculoskeltal: normal gait Cervical Spine motor stregnth in the deltoid and biceps, normal right side , normal Left side motor stregnth biceps and the wrist extensors normal right side ,normal left side . motor stregnth in the triceps muscle . normal Right side , normal Left side deep tendon reflexes normal at the biceps , normal at Brachioradialis , normal at triceps. positive cervical facet loading test . Decreased ability to abduct the right shoulder, decreased ability to lateral rotation of the right shoulder Lumber spine moter stegnth lower extremities ,thigh and legs 5/5 Right side , 5/5 Left side Results Results: MRI of the cervical spine reviewed Assessment and Plan Plan: Assessment and plan=1-cervical radiculopathy 2-cervical spondylosis 3-lumbar spondylosis. Patient will be scheduled to have cervical epidural steroid injections under fluoroscopy guidance, procedure risk and benefits and alternatives discussed with patient agreed to proceed, because patient hasn't history of platelet count more than 700, I will order a repeat CBC, differential, before proceeding with a cervical epidural steroid injection . Patient currently getting the description that for Foster and Neurontin, patient denies any side effect of the medication anesthesia continued to get the same prescription from his primary care PQRS Measure Charge Sheet Measure #130: Documentation of Current Meds in Medical Chart: Patient's medications documented in chart Measure #226: Tobacco Use: Screen & Cessation Intervention: Pt not a tobacco user Measure #111: Pneumonia Vaccination: Pneumococcal vaccine administered or previously received Measure #47: Advance Care Plan: Advance care planning discussed & documented, plan or surrogate given Measure #412: Opioid Treatment Agreement: No documentation of signed opioid treatment agreement Measure #408: Opioid Therapy Follow-up Evaluation: Patient had NO f/u eval minimum every 3 months during opioid therapy Measure #317: Preventitive Care & Scrn High Bld Press & F/U: Pre-hypertensive or hypertensive BP documented, pt will f/u with PCP Measure #128: Body Mass Index (BMI) Screening & Follow-up: BMI documented ABOVE normal parameters - f/u documented Measure #131: Pain Assessment & Follow-up: Pain positive & plan documented, Follow-up scheduled Measure #431: Unhealthy Alcohol Use Preventative Care & Scrn: Patient not identified as an unhealthy alcohol user PQRS Narrative: Smoking Status Never smoker Do You Want the Pneumonia No Vaccine AT THIS TIME? Blood Pressure 151/67 Pain Intensity [Posterior Neck 9 ] Scale Used Numeric (1 - 10) Hx Alcohol Use (MH) Yes: 2 manhattans per night Home Medications: Ambulatory Orders Allopurinol [Zyloprim] 300 mg PO HS 09/01/13 Hydroxyurea [Hydrea] 500 mg PO TID 09/01/13 hydrALAZINE HCL [Apresoline] 25 mg PO DAILY 09/01/13 Cholecalciferol [Vitamin D3] 2,000 unit PO DAILY 08/20/15 Aspirin 325 mg PO DAILY 08/02/16 EPINEPHrine (Auto Inject) [Epipen] 0.3 mg IM ONCE PRN 01/06/17 Gabapentin [Neurontin] 300 mg PO HS 06/13/17 Gentamicin 0.1% Cream 1 applic TOPICAL DAILY 06/13/17 HYDROcodone/APAP 5-325MG [Foster 5-325] 1 tab PO Q6HR PRN #10 tab 06/13/17 Pantoprazole Sodium [Protonix] 40 mg PO DAILY 06/13/17 Turmeric Root Extract [Turmeric] 500 mg PO DAILY 06/13/17
[2017-08-01 19:16] LABS: Anisocytosis Slight; HCT 37.1 % (39.0-53.0); HGB 11.6 gm/dL (13.0-17.5); Hypochromasia Moderate; MCH 40.3 pg (25.0-35.0); MCHC 31.4 g/dL (31.0-37.0); MCV 128.3 fL (80.0-100.0); Macrocytosis Marked; Mean Platelet Volume 8.6; Platelet Count 534 k/uL (150-450); Poikilocytosis Slight; RBC 2.89 m/uL (4.30-5.90); RDW 18.5 % (11.5-15.5); WBC 4.1 k/uL (3.8-10.6)
[2017-08-01 20:14] LABS: Band Neutrophils % 1 %; Eosinophils # (M) 0.12 k/uL (0-0.7); Monocytes # (M) 0.37 k/uL (0-1.0); Myelocytes # (M) 0.16 k/uL (0); Myelocytes % 4 %; Neutrophils % (M) 67 %; Nucleated Red Blood Cells 0 /100 WBC (0-0); Total Cells Counted 200
[2017-08-01 20:15] LABS: Ovalocytes Present; Polychromasia Present; Spherocytes Present
== END ==
LOC: PNWHC3 11:34
PROVIDERS: ATTEND Specialist
DX: M47.816 Spondylosis without myelopathy or radiculopathy, lumbar region (principal); M47.22 Other spondylosis with radiculopathy, cervical region; Z79.899 Other long term (current) drug therapy; Z79.2 Long term (current) use of antibiotics; Z79.891 Long term (current) use of opiate analgesic; Z91.030 Bee allergy status
CPT/HCPCS: 85025; G0463; 99211

== ENCOUNTER 2017-08-03 14:59 | Inpatient (IN) | payer MEDICARE ==
[2017-08-03 15:10] LABS: Glucose,Whole Blood 129 mg/dL (75-99)
--- NOTE | 2017-08-03 15:16 | ED ---
General Adult HPI - General Chief complaint: Syncope Stated complaint: Weakness Time Seen by Provider: 08/03/17 15:02 Source: patient, family, EMS, RN notes reviewed Mode of arrival: EMS Limitations: altered mental status, physical limitation - History of Present Illness Initial comments: Patient is a pleasant 81-year-old male presenting to the emergency department following syncopal episode. Patient was reportedly riding on his lawnmower when he became unresponsive. Patient did lose control of the [place]. No significant trauma reported. Patient is a poor historian at this time and has difficulty providing history. does arrive and states this is abnormal for him. EMS provides majority of history. Patient states he does not feel well however is unable to explain why. Patient denies any pain. Patient reportedly has had some diarrhea over the past week. - Related Data Home Medications Medication Instructions Recorded Confirmed Allopurinol [Zyloprim] 300 mg PO DAILY 09/01/13 08/03/17 Hydroxyurea [Hydrea] 500 mg PO TID 09/01/13 08/03/17 hydrALAZINE HCL [Apresoline] 25 mg PO DAILY 09/01/13 08/03/17 Aspirin 325 mg PO DAILY 08/02/16 08/03/17 EPINEPHrine (Auto Inject) [Epipen] 0.3 mg IM ONCE PRN 01/06/17 08/03/17 Gabapentin [Neurontin] 300 mg PO BID 06/13/17 08/03/17 Allergies Allergy/AdvReac Type Severity Reaction Status Date / Time venom-honey bee Allergy Anaphylaxis Verified 08/03/17 15:37 [bee venom (honey bee)] Review of Systems ROS Statement: Those systems with pertinent positive or pertinent negative responses have been documented in the HPI. ROS Other: All systems not noted in ROS Statement are negative. Constitutional: Denies: fever Eyes: Denies: eye pain ENT: Denies: ear pain Respiratory: Denies: dyspnea Cardiovascular: Denies: chest pain Endocrine: Denies: fatigue Gastrointestinal: Reports: diarrhea. Denies: abdominal pain Genitourinary: Denies: dysuria Musculoskeletal: Denies: joint swelling Neurological: Reports: confusion Past Medical History Past Medical History: Cancer, CVA/TIA, Eye Disorder, Hyperlipidemia, Hypertension, Osteoarthritis (OA), Sleep Apnea/CPAP/BIPAP Additional Past Medical History / Comment(s): Past lower GI bleed, diverticular dx, thrombocytosis-sees Dr. 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 History of Any Multi-Drug Resistant Organisms: None Reported Past Surgical History: Adenoidectomy, Hernia Repair, Joint Replacement, Orthopedic Surgery, Tonsillectomy Additional Past Surgical History / Comment(s): R kidney donor, kiesha hip replacement, L hand trigger finger sx, uvuloplasty, left carotid stent, bilateral inguinal hernia repair, deviated septum repair, colonoscopy, R cataract removal with lens-now has membrane problem and plugged R tear duct. Past Anesthesia/Blood Transfusion Reactions: No Reported Reaction Past Psychological History: No Psychological Hx Reported Smoking Status: Never smoker Past Alcohol Use History: None Reported Past Drug Use History: None Reported - Past Family History Father Family Medical History: CVA/TIA Additional Family Medical History / Comment(s): Father at 80 from stroke Mother Family Medical History: Renal Disease Additional Family Medical History / Comment(s): Mother at age 55 from polycystic kidney disease. Brother(s) Additional Family Medical History / Comment(s): Patient has 1 brother with multiple medical problems including diabetes. Sister(s) Family Medical History: Renal Disease Additional Family Medical History / Comment(s): Patient has one sister that at age 60 from kidney failure due to polycystic kidney disease. Daughter(s) Family Medical History: No Reported History Additional Family Medical History / Comment(s): Patient has one daughter with no major medical problems. Son(s) Additional Family Medical History / Comment(s): Patient has 5 sons. 2 at premature . One while skiing from a myocardial infarction at age 32. One son is alive with no major medical problems. General Exam Limitations: physical limitation General appearance: alert Head exam: Present: atraumatic, normocephalic Eye exam: Present: normal appearance, PERRL, EOMI. Absent: nystagmus ENT exam: Present: normal oropharynx Neck exam: Present: normal inspection. Absent: tenderness, meningismus Respiratory exam: Present: normal lung sounds bilaterally Cardiovascular Exam: Present: irregular rhythm Expanded Peripheral pulses: 2+: Radial (R), Radial (L), Dorsalis Pedis (R), Dorsalis Pedis (L) GI/Abdominal exam: Present: soft. Absent: distended, tenderness Extremities exam: Present: normal inspection, full ROM. Absent: tenderness Neurological exam: Present: alert, altered, CN II-XII intact Expanded Neurological exam: Present: protecting the airway Patient oriented to: Present: person. Absent: place, time Cranial nerves: EOM's Intact: Normal Motor strength exam: RUE: 3 (Reported as chronic by ), LUE: 4, RLE: 3, LLE: 3 Eye Response: (4) open spontaneously Motor Response: (6) obeys commands Verbal Response: (4) confused conversation Psychiatric exam: Present: normal affect, normal mood Skin exam: Present: normal color Course Vital Signs 08/03/17 08/03/17 08/03/17 15:07 15:23 16:10 Temperature 97.9 F Pulse Rate 82 84 72 Respiratory 16 16 16 Rate Blood Pressure 126/59 98/52 O2 Sat by Pulse 99 97 98 Oximetry - Reevaluation(s) Reevaluation #1: 08/03/17 17:01 Patient reevaluated and resting comfortably in bed. Patient does feel better at this time. Patient is alert and oriented 3. Patient and are updated on results and plan. Case was discussed in detail with Dr. Sandra, who is familiar with this patient and will admit. He does agree with neurology consult. He does request orthostatics. EKG Findings - EKG Comments: EKG Findings:: Sinus rhythm and 90 with frequent PVCs. VA 166. QRS 92. QT 464. QTC 567. Normal axis. Normal QRS. No acute ST change. Medical Decision Making - Lab Data Result diagrams: 08/03/17 15:23 08/03/17 15:23 Lab Results 08/03/17 08/03/17 08/03/17 Range/Units 15:08 15:23 15:23 WBC 2.3 L (3.8-10.6) k/uL RBC 2.78 L (4.30-5.90) m/uL Hgb 11.3 L (13.0-17.5) gm/dL Hct 35.2 L (39.0-53.0) % MCV 126.5 H (80.0-100.0) fL MCH 40.5 H (25.0-35.0) pg MCHC 32.0 (31.0-37.0) g/dL RDW 18.6 H (11.5-15.5) % Plt Count 654 H (150-450) k/uL Neutrophils % (Manual) 71 % Band Neutrophils % 1 % Lymphocytes % (Manual) 19 % Monocytes % (Manual) 6 % Eosinophils % (Manual) 3 % Neutrophils # (Manual) 1.60 (1.3-7.7) k/uL Lymphocytes # (Manual) 0.44 L (1.0-4.8) k/uL Monocytes # (Manual) 0.14 (0-1.0) k/uL Eosinophils # (Manual) 0.07 (0-0.7) k/uL Nucleated RBCs 2 H (0-0) /100 WBC Manual Slide Review Performed Hypochromasia Slight Poikilocytosis Slight Anisocytosis Slight Macrocytosis Marked PT (9.0-12.0) sec INR (<1.2) APTT (22.0-30.0) sec Sodium (137-145) mmol/L Potassium (3.5-5.1) mmol/L Chloride (98-107) mmol/L Carbon Dioxide (22-30) mmol/L Anion Gap mmol/L BUN (9-20) mg/dL Creatinine (0.66-1.25) mg/dL Est GFR (CKD-EPI)AfAm (>60 ml/min/1.73 sqM) Est GFR (CKD-EPI)NonAf (>60 ml/min/1.73 sqM) Glucose (74-99) mg/dL POC Glucose (mg/dL) 129 H (75-99) mg/dL POC Glu Kiln Tender ID Baunoch, Brittnee Calcium (8.4-10.2) mg/dL Magnesium (1.6-2.3) mg/dL Total Bilirubin (0.2-1.3) mg/dL AST (17-59) U/L ALT (21-72) U/L Alkaline Phosphatase (38-126) U/L Total Creatine Kinase 20 L (55-170) U/L CK-MB (CK-2) 0.4 (0.0-2.4) ng/mL CK-MB (CK-2) Rel Index 2.0 Troponin I <0.012 (0.000-0.034) ng/mL Total Protein (6.3-8.2) g/dL Albumin (3.5-5.0) g/dL Urine Color Urine Appearance (Clear) Urine pH (5.0-8.0) Ur Specific [place] (1.001-1.035) Urine Protein (Negative) Urine Glucose (UA) (Negative) Urine Ketones (Negative) Urine Blood (Negative) Urine Nitrite (Negative) Urine Bilirubin (Negative) Urine Urobilinogen (<2.0) mg/dL Ur Leukocyte Esterase (Negative) Urine RBC (0-5) /hpf Urine WBC (0-5) /hpf Ur Squamous Epith Cells (0-4) /hpf Urine Bacteria (None) /hpf Hyaline Casts (0-2) /lpf Urine Mucus (None) /hpf 08/03/17 08/03/17 08/03/17 Range/Units 15:23 15:23 15:23 WBC (3.8-10.6) k/uL RBC (4.30-5.90) m/uL Hgb (13.0-17.5) gm/dL Hct (39.0-53.0) % MCV (80.0-100.0) fL MCH (25.0-35.0) pg MCHC (31.0-37.0) g/dL RDW (11.5-15.5) % Plt Count (150-450) k/uL Neutrophils % (Manual) % Band Neutrophils % % Lymphocytes % (Manual) % Monocytes % (Manual) % Eosinophils % (Manual) % Neutrophils # (Manual) (1.3-7.7) k/uL Lymphocytes # (Manual) (1.0-4.8) k/uL Monocytes # (Manual) (0-1.0) k/uL Eosinophils # (Manual) (0-0.7) k/uL Nucleated RBCs (0-0) /100 WBC Manual Slide Review Hypochromasia Poikilocytosis Anisocytosis Macrocytosis PT 11.7 (9.0-12.0) sec INR 1.2 H (<1.2) APTT 22.5 (22.0-30.0) sec Sodium 140 (137-145) mmol/L Potassium 4.3 (3.5-5.1) mmol/L Chloride 114 H (98-107) mmol/L Carbon Dioxide 19 L (22-30) mmol/L Anion Gap 7 mmol/L BUN 23 H (9-20) mg/dL Creatinine 1.30 H (0.66-1.25) mg/dL Est GFR (CKD-EPI)AfAm 59 (>60 ml/min/1.73 sqM) Est GFR (CKD-EPI)NonAf 51 (>60 ml/min/1.73 sqM) Glucose 103 H (74-99) mg/dL POC Glucose (mg/dL) (75-99) mg/dL POC Glu Kiln Tender ID Calcium 7.5 L (8.4-10.2) mg/dL Magnesium 1.8 (1.6-2.3) mg/dL Total Bilirubin 0.9 (0.2-1.3) mg/dL AST 20 (17-59) U/L ALT 22 (21-72) U/L Alkaline Phosphatase 34 L (38-126) U/L Total Creatine Kinase (55-170) U/L CK-MB (CK-2) (0.0-2.4) ng/mL CK-MB (CK-2) Rel Index Troponin I (0.000-0.034) ng/mL Total Protein 4.6 L (6.3-8.2) g/dL Albumin 2.7 L (3.5-5.0) g/dL Urine Color Yellow Urine Appearance Cloudy (Clear) Urine pH 6.0 (5.0-8.0) Ur Specific [place] 1.014 (1.001-1.035) Urine Protein 2+ H (Negative) Urine Glucose (UA) Negative (Negative) Urine Ketones 1+ H (Negative) Urine Blood Trace H (Negative) Urine Nitrite Negative (Negative) Urine Bilirubin Negative (Negative) Urine Urobilinogen 2.0 (<2.0) mg/dL Ur Leukocyte Esterase Small H (Negative) Urine RBC 1 (0-5) /hpf Urine WBC 11 H (0-5) /hpf Ur Squamous Epith Cells <1 (0-4) /hpf Urine Bacteria Rare H (None) /hpf Hyaline Casts 12 H (0-2) /lpf Urine Mucus Occasional H (None) /hpf - Radiology Data Radiology results: report reviewed (Computed tomography scan of the chest shows no acute intercranial abnormality. Stable old cortical infarcts and moderate chronic small vessel ischemic disease. No acute fracture of the cervical spine. Stable degenerative grade 1 and 2 doses C4-C5. Multilevel spondylitic changes.), image reviewed (Two-view chest x-ray shows peribronchial cuffing, possible bronchitis or asthma. Nodular density right upper lobe.) Disposition Clinical Impression: Syncope Disposition: ADMITTED IP TO THIS HOSP Is patient prescribed a controlled substance at d/c from ED?: No Referrals: Laurita Sandra MD [Primary Care Provider] - 1-2 days Decision Time: 17:01
--- NOTE | 2017-08-03 16:13 | CT ---
EXAMINATION TYPE: CT brain karineine wo con DATE OF EXAM: 08/03/2017 COMPARISON: NONE HISTORY: 81-year-old male is severely short of breath. Patient had difficulty holding breath for exa m. Syncope. CT DLP: 1380 mGycm Automated exposure control for dose reduction was used. Technique: Examination of the head was done in axial plane without intravenous contrast. Coronal and sagittal reconstructions performed. CT of the cervical spine was obtained in axial plane without intravenous injection of contrast mater ial. Coronal and sagittal reformatted images were obtained from the axial views for evaluation of f ractures, spinal alignment and canal. FINDINGS: Head: There is no evidence of acute intracranial hemorrhage, acute ischemic changes, mass, mass-effect, or extra-axial fluid collection. There is no effacement of cerebral sulci or basal subarachnoid cister ns. There is no hydrocephalus. There is no midline shift. Perry-white matter distinction is preserv ed. Cortical, subcortical, and moderate patchy deep white matter hypodensities in both cerebral hemispher es are unchanged from 06/13/2017. Benign basal ganglionic calcifications. Paranasal sinuses and mastoid air cells are well pneumatized. Orbits and globes are intact. Cervical spine: No craniocervical junction abnormality, predental space widening, or prevertebral soft tissue swellin g. Moderate disc/endplate degenerative change throughout with additional degenerative change at the C1 d ens articulation. Stable grade 1 anterolisthesis at C4-C5. 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 Assessment of the spinal canal from C5 and below is limited due to artifact from the patient's should ers. No acute fracture is identified. Variable moderate, moderate to severe bilateral neural foraminal stenoses, particularly on the left a t C3-C4 and on the left at C5-C6 and C6-C7. Sagittal and coronal reformatted images confirm above findings. COMBINED IMPRESSION: 1. Stable exam with suspected small old cortical infarcts and moderate patchy changes of chronic smal l vessel ischemic disease. No acute intracranial abnormality seen. 2. No acute fracture of the cervical spine. Stable degenerative grade 1 anterolisthesis at C4-C5 and moderate to advanced multilevel spondylotic change.
[2017-08-03 16:15] LABS: Anisocytosis Slight; HCT 35.2 % (39.0-53.0); HGB 11.3 gm/dL (13.0-17.5); Hypochromasia Slight; MCH 40.5 pg (25.0-35.0); MCV 126.5 fL (80.0-100.0); Macrocytosis Marked; Mean Platelet Volume 7.4; Platelet Count 654 k/uL (150-450); Poikilocytosis Slight; RBC 2.78 m/uL (4.30-5.90); RDW 18.6 % (11.5-15.5); WBC 2.3 k/uL (3.8-10.6)
--- NOTE | 2017-08-03 16:20 | XR ---
EXAMINATION TYPE: XR chest 2V DATE OF EXAM: 08/03/2017 COMPARISON: 08/20/2015 HISTORY: 81-year-old male with syncope TECHNIQUE: Frontal and lateral views FINDINGS: Part of the limits of normal in size. Aorta within normal limits. Mild diffuse interstitial prominenc e and peribronchial cuffing. Trace effusions on the lateral view. Focal density right upper lobe. No bonita consolidation seen. IMPRESSION: 1. Peribronchial cuffing and interstitial prominence, possible bronchitis or asthma. 2. Trace effusion suggested on the lateral view. 3. Some nodular density at the right upper lobe. Recommend nonemergent follow-up contrast enhanced CT chest to exclude pulmonary nodule/neoplasm.
[2017-08-03 16:28] LABS: Appearance,Urine Cloudy (Clear); Bacteria,Urine Rare /hpf; Bilirubin,Urine Negative (Negative); Blood,Urine Trace (Negative); Color,Urine Yellow; Glucose,Urine (UA) Negative (Negative); Hyaline Casts,Urine 12 /lpf (0-2); Ketones,Urine 1+ (Negative); Leukocyte Esterase,Urine Small (Negative); Mucus,Urine Occasional /hpf; Nitrite,Urine Negative (Negative); Protein,Urine 2+ (Negative); RBC,Urine 1 /hpf (0-5); Specific Gravity,Urine 1.014 (1.001-1.035); Squamous Epithelial Cell,Urine <1 /hpf (0-4); WBC,Urine 11 /hpf (0-5)
[2017-08-03 16:31] LABS: Creatine Kinase 20 U/L (55-170)
[2017-08-03 16:34] LABS: Albumin 2.7 g/dL (3.5-5.0); Calcium 7.5 mg/dL (8.4-10.2); Magnesium 1.8 mg/dL (1.6-2.3); Potassium 4.3 mmol/L (3.5-5.1); Total Bilirubin 0.9 mg/dL (0.2-1.3); Total Protein 4.6 g/dL (6.3-8.2)
[2017-08-03 16:38] LABS: Band Neutrophils % 1 %; Eosinophils # (M) 0.07 k/uL (0-0.7); Lymphocytes # (M) 0.44 k/uL (1.0-4.8); Monocytes # (M) 0.14 k/uL (0-1.0); Neutrophils % (M) 71 %; Nucleated Red Blood Cells 2 /100 WBC (0-0); Total Cells Counted 100
[2017-08-03 16:42] LABS: INR 1.2 (<1.2); Partial Thromboplastin Time 22.5 sec (22.0-30.0); Prothrombin Time 11.7 sec (9.0-12.0)
[2017-08-03 16:45] LABS: Creatine Kinase MB 0.4 ng/mL (0.0-2.4); Troponin I <0.012 ng/mL (0.000-0.034)
[2017-08-03] MEDS: SODIUM CHLORIDE 0.9% 1,000 ML IV SCH (17:13)
[2017-08-03 18:06] VITALS: BMI 30.1
--- NOTE | 2017-08-03 20:44 | P.CNNES ---
History of Present Illness Consult date: 08/03/17 Reason for Consult: Patient with acute syncopal episode and confusion. History of Present Illness: This patient is a 81-year-old right-handed white male who was in his usual state of health until early this afternoon. According to his who was at bedside and provided his medical history he was doing fine and was outside this afternoon mowing his lawn. He has 4 acres to mow and was doing fine on his riding lawnmower and apparently had an episode of unresponsiveness while riding the lawnmower. According to the he went over into the neighbor's yard and struck the above ground swimming pool and apparently stopped the lawnmower with the engine running. The neighbor found him and immediately called EMS. also found out that he was unresponsive and she immediately went to assist him. He appeared to be very confused and disoriented. Patient has no memory of this event at all other than waking up in the ambulance and brought to the emergency room. Patient still was not very alert in the ER according to the . It took him at least an hour to get back to baseline level of function. According to the and the patient he did lose control of bowel and bladder while writing the mower. He did not bite his tongue. The neighbor did not see any active seizure activity when she found him slumped over the mower. The patient denies any previous history of seizures. The patient was seen by EMS and transported to the emergency room at [facility]. He was seen in the ER by Dr. Shafer. He was sent for a computed tomography scan of the brain and cervical spine. 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 No acute intracranial abnormality was seen. CT of the cervical spine revealed no acute fracture. Stable degenerative changes were noted at C4-C5 with moderate degree of spondylitic changes. 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 He is scheduled to undergo epidural injections to the cervical spine next week. He has been taken off of aspirin as of yesterday. He is to follow up in the pain clinic for the epidural injections on Saturday. According to the he was doing fine prior to this event. She denies ever having noted a episode of seizure activity for the patient. He does have a history of thrombocytopenia which is being treated by his oncologist. His platelet count on admission was 654,000. He is on treatment for this condition and takes Hydrea. The patient denies any previous history of closed head injury or motor vehicle accidents. He does have history of multiple TIAs that occurred about 4 years ago. He also has a stent placement to the right carotid artery which was done about 4 years ago. The patient is now been admitted and neurology has been consulted for further evaluation and recommendations. Review of Systems Constitutional: Denies chills, Denies fever Eyes: denies blurred vision, denies pain Ears, nose, mouth and throat: Denies headache, Denies sore throat Cardiovascular: Denies chest pain, Denies shortness of breath Respiratory: Denies cough Gastrointestinal: Denies abdominal pain, Denies diarrhea, Denies nausea, Denies vomiting Musculoskeletal: Denies myalgias Integumentary: Denies pruritus, Denies rash Neurological: Reports change in mentation, Reports confusion, Reports headaches , Reports memory loss, Reports syncope, Denies numbness, Denies weakness Psychiatric: Denies anxiety, Denies depression Endocrine: Denies fatigue, Denies weight change Past Medical History Past Medical History: Cancer, CVA/TIA, Eye Disorder, Hyperlipidemia, Hypertension, Osteoarthritis (OA), Sleep Apnea/CPAP/BIPAP Additional Past Medical History / Comment(s): Past lower GI bleed, diverticular dx, thrombocytosis-sees Dr. 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 History of Any Multi-Drug Resistant Organisms: None Reported Past Surgical History: Adenoidectomy, Hernia Repair, Joint Replacement, Orthopedic Surgery, Tonsillectomy Additional Past Surgical History / Comment(s): R kidney donor, kiesha hip replacement, L hand trigger finger sx, uvuloplasty, left carotid stent, bilateral inguinal hernia repair, deviated septum repair, colonoscopy, R cataract removal with lens-now has membrane problem and plugged R tear duct. Past Anesthesia/Blood Transfusion Reactions: No Reported Reaction Past Psychological History: No Psychological Hx Reported Additional Psychological History / Comment(s): Pt resides with his spouse. He is independent. He works daily. Smoking Status: Never smoker Past Alcohol Use History: None Reported Additional Past Alcohol Use History / Comment(s): Pt drinks 2 [place] drinks per day. Last drank yesterday 08/01/16. Past Drug Use History: None Reported - Past Family History Father Family Medical History: CVA/TIA Additional Family Medical History / Comment(s): Father at 80 from stroke Mother Family Medical History: Renal Disease Additional Family Medical History / Comment(s): Mother at age 55 from polycystic kidney disease. Brother(s) Additional Family Medical History / Comment(s): Patient has 1 brother with multiple medical problems including diabetes. Sister(s) Family Medical History: Renal Disease Additional Family Medical History / Comment(s): Patient has one sister that at age 60 from kidney failure due to polycystic kidney disease. Daughter(s) Family Medical History: No Reported History Additional Family Medical History / Comment(s): Patient has one daughter with no major medical problems. Son(s) Additional Family Medical History / Comment(s): Patient has 5 sons. 2 at premature . One while skiing from a myocardial infarction at age 32. One son is alive with no major medical problems. Medications and Allergies Home Medications Medication Instructions Recorded Confirmed Type Allopurinol [Zyloprim] 300 mg PO DAILY 09/01/13 08/03/17 History Hydroxyurea [Hydrea] 500 mg PO TID 09/01/13 08/03/17 History hydrALAZINE HCL [Apresoline] 25 mg PO BID 09/01/13 08/03/17 History Aspirin 325 mg PO DAILY 08/02/16 08/03/17 History EPINEPHrine (Auto Inject) [Epipen] 0.3 mg IM ONCE PRN 01/06/17 08/03/17 History Gabapentin [Neurontin] 300 mg PO BID 06/13/17 08/03/17 History Allergies Allergy/AdvReac Type Severity Reaction Status Date / Time venom-honey bee Allergy Anaphylaxis Verified 08/03/17 18:33 [bee venom (honey bee)] Physical Examination - Vital Signs Vital Signs: Vital Signs Temp Pulse Pulse Resp BP BP Pulse Ox 08/03/17 18:47 100 18 08/03/17 18:20 97.7 F 100 18 148/67 96 08/03/17 17:42 98 F 94 16 141/66 96 08/03/17 17:19 78 16 98/61 98 08/03/17 16:10 72 16 98/52 98 08/03/17 15:23 84 16 97 08/03/17 15:07 97.9 F 82 16 126/59 99 Intake and Output 08/03/17 08/03/17 08/03/17 06:59 14:59 22:59 Other: Voiding Method Urinal Weight 95.254 kg - Constitutional General appearance: average body habitus, cooperative - EENT EENT: PERRL, mucous membranes moist - Respiratory Respiratory: lungs clear, normal breath sounds - Cardiovascular Cardiovascular: regular rate, normal S1, normal S2 Extremities: no peripheral edema bilaterally - Gastrointestinal Gastrointestinal: normoactive bowel sounds - Integumentary Integumentary: normal - Neurologic Cranial nerve examination: PERRL, EOMI, VFF, V1/V2/V3 grossly intact, face symmetric, intact gag reflex, intact corneal reflex, normal palatal elevation Speech examination: intact Sensorimotor examination: intact Motor examination - right side: 4/5: biceps, triceps, wrist flexion, wrist extension, 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, hip flexors, knee extensors, dorsiflexion, toe extension (EHL) , plantarflexion Motor examination - left side: 4/5: biceps, triceps, wrist flexion, wrist extension, 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, hip flexors, knee extensors, dorsiflexion, toe extension (EHL) , plantarflexion Detailed sensory examination: intact Reflex and gait examination: intact Reflexes: 1+: ankle, bicep, knee, tricep - Musculoskeletal Musculoskeletal: no pain - Psychiatric Psychiatric: mood/affect appropriate, cooperative Results - Laboratory Findings CBC and BMP: 08/03/17 15:23 08/03/17 15:23 Abnormal Lab Findings: Abnormal Labs 08/03/17 08/03/17 08/03/17 15:08 15:23 15:23 WBC 2.3 L RBC 2.78 L Hgb 11.3 L Hct 35.2 L MCV 126.5 H MCH 40.5 H RDW 18.6 H Plt Count 654 H Lymphocytes # (Manual) 0.44 L Nucleated RBCs 2 H INR Chloride Carbon Dioxide BUN Creatinine Glucose POC Glucose (mg/dL) 129 H Calcium Alkaline Phosphatase Total Creatine Kinase 20 L Total Protein Albumin Urine Protein Urine Ketones Urine Blood Ur Leukocyte Esterase Urine WBC Urine Bacteria Hyaline Casts Urine Mucus 08/03/17 08/03/17 08/03/17 15:23 15:23 15:23 WBC RBC Hgb Hct MCV MCH RDW Plt Count Lymphocytes # (Manual) Nucleated RBCs INR 1.2 H Chloride 114 H Carbon Dioxide 19 L BUN 23 H Creatinine 1.30 H Glucose 103 H POC Glucose (mg/dL) Calcium 7.5 L Alkaline Phosphatase 34 L Total Creatine Kinase Total Protein 4.6 L Albumin 2.7 L Urine Protein 2+ H Urine Ketones 1+ H Urine Blood Trace H Ur Leukocyte Esterase Small H Urine WBC 11 H Urine Bacteria Rare H Hyaline Casts 12 H Urine Mucus Occasional H Assessment and Plan (1) Syncope Current Visit: Yes Status: Acute Code(s): R55 - SYNCOPE AND COLLAPSE SNOMED Code(s): 019857153 (2) Seizure Current Visit: Yes Status: Acute Code(s): R56.9 - UNSPECIFIED CONVULSIONS SNOMED Code(s): 93128968 (3) Anemia Current Visit: No Status: Acute Code(s): D64.9 - ANEMIA, UNSPECIFIED SNOMED Code(s): 947748192 (4) Thrombocytosis Current Visit: No Status: Acute Code(s): D47.3 - ESSENTIAL (HEMORRHAGIC) THROMBOCYTHEMIA SNOMED Code(s): 7354002 Plan: This patient is a 81-year-old male was brought into the emergency room at [facility] today for evaluation of acute syncopal episode while riding his lawnmower. Patient was on a 0 to return riding lawnmower and apparently went across his neighbor's yard and ran into a above ground swimming pool. Neighbor found him and immediately called EMS as he was unresponsive. Patient apparently lost control of bowel and bladder when his came to assist him. He appeared to be very confused and disoriented. It took about an hour for him to slowly come back to baseline level of function according to the . The patient was brought to the emergency room at [facility] and was seen in the ER by Dr. Sahfer. He was sent for a computed tomography scan of the brain and cervical spine results of which are noted above. Patient's neurological examination at this time is nonfocal. Given his clinical history and findings of syncope versus seizure we have recommended the patient undergo routine EEG as well as MRI of the brain for further assessment. His overall condition and prognosis at this time remains guarded. We will continue close neurological follow-up with the patient. Case was discussed at length with the patient and his in detail. He is recommended to avoid driving for 6 months as is the [place] driving law given the acute syncopal episode and unclear etiology and possible seizure related event. We will continue close neurological follow-up with the patient during this admission. His overall prognosis at this time remains guarded. Time with Patient: Greater than 30
[2017-08-03] MEDS: GABAPENTIN 300 MG CAP PO SCH (22:36)
[2017-08-03] MEDS: hydrALAZINE HCL 25 MG TAB PO SCH (22:37)
[2017-08-03] MEDS: HYDROXYUREA 500 MG CAP PO SCH (22:37)
[2017-08-04 04:14] LABS: Cholesterol 148 mg/dL (<200); HDL Cholesterol 40 mg/dL (40-60); LDL Cholesterol,Calculated 76 mg/dL (0-99); Triglycerides 159 mg/dL (<150)
[2017-08-04] MEDS: PANTOPRAZOLE 40 MG TABLET PO SCH (06:15)
[2017-08-04] MEDS: SODIUM CHLORIDE 0.9% 1,000 ML IV SCH ×3 (06:15→23:21)
[2017-08-04 06:19] LABS: Glucose,Whole Blood 100 mg/dL (75-99)
[2017-08-04] MEDS: ALLOPURINOL 300 MG TAB PO SCH (08:57)
[2017-08-04] MEDS: GABAPENTIN 300 MG CAP PO SCH ×2 (08:57→19:44)
[2017-08-04] MEDS: HYDROXYUREA 500 MG CAP PO SCH ×3 (08:58→21:12)
[2017-08-04] MEDS: hydrALAZINE HCL 25 MG TAB PO SCH ×2 (08:58→19:44)
[2017-08-04] MEDS ORDERED: ASPIRIN 325 MG TAB PO SCH (09:00)
[2017-08-04] MEDS ORDERED: ACETAMINOPHEN TAB 325 MG TAB PO PRN (09:04)
--- NOTE | 2017-08-04 10:40 | US ---
EXAMINATION TYPE: US carotid duplex BILAT DATE OF EXAM: 08/04/2017 COMPARISON: 01/04/2016 CLINICAL HISTORY: 81-year-old male Stenosis; patient stated has ICA stent and had episode of blurred vision then syncope TECHNIQUE: Carotid duplex ultrasound examination. Indirect Doppler criteria was utilized. FINDINGS: EXAM MEASUREMENTS: RIGHT: Peak Systolic Velocity (PSV) cm/sec ----- Right CCA: 83.8 ----- Right ICA: 109.7 ----- Right ECA: 122.9 ICA/CCA ratio: 1.3 RIGHT: End Diastole cm/sec ----- Right CCA: 9.5 ----- Right ICA: 17.6 ----- Right ECA: 0.0 LEFT: Peak Systolic Velocity (PSV) cm/sec ----- Left CCA: 76.2 ----- Left ICA: 111.3 ----- Left ECA: 236.6 ICA/CCA ratio: 1.5 LEFT: End Diastole cm/sec ----- Left CCA: 0.0 ----- Left ICA: 14.4 ----- Left ECA: 11.4 VERTEBRALS (direction of flow): Right Vertebral: Antegrade Left Vertebral: Antegrade Rhythm: Arrhythmia noted on images #[id number], [id number], etc. Band Booker notes: Mixed intimal wall changes are noted Right Carotid Bifurcation, but PSV is wnl. Ca rotid Artery stent is noted in Left CCA distally/ ICA with wall thickening noted at Left ICA bulb and proximally, and also at left ECA proximally. Elevated PSV is noted Left ECA proximally as is > 125cm /s. IMPRESSION: A left carotid stent is seen. There are intimal changes associated with the stent but no hemodynamica lly significant stenosis appreciated in either internal carotid artery. Criteria for Assigning % of Stenosis / Diameter reduction (Estimation based on the indirect measurements of the internal carotid artery velocities (ICA PSV). 1. Normal (no stenosis)=ICA PSV < 125 cm/s: ratio < 2.0: ICA EDV<40 cm/s. 2. Less than 50% stenosis=ICA PSV < 125 cm/s: ratio < 2.0: ICA EDV<40 cm/s. 3. 50 to 69% stenosis=ICA PSV of 125 to 230 cm/s: ration 2.0 ? 4.0: ICA EDV 40-100 cm/s. 4. Greater than 70% stenosis to near occlusion= ICA PSV > 230 cm/s: ratio > 4.0: ICA EDV > 100 cm/s. 5. Near occlusion= ICA PSV velocities may be low or undetectable: variable ratio and ICA EDV. 6. Total occlusion=unable to detect flow.
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
[2017-08-04 11:44] LABS: Glucose,Whole Blood 98 mg/dL (75-99)
[2017-08-04] MEDS: HEPARIN SODIUM,PORCINE 5,000 UNIT/ML 1 ML VIAL SQ SCH ×2 (15:32→23:03)
[2017-08-04 17:23] LABS: Glucose,Whole Blood 88 mg/dL (75-99)
[2017-08-04] MEDS ORDERED: METOPROLOL TARTRATE 25 MG TAB PO STA (17:29)
[2017-08-04] MEDS: MAGNESIUM SULFATE-D5W PMX 1 GM in DEXTROSE/WATER 1 100ML.BAG IVPB SCH ×2 (17:47→19:38)
[2017-08-04 20:21] LABS: Glucose,Whole Blood 127 mg/dL (75-99)
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
[2017-08-05 05:49] LABS: Glucose,Whole Blood 100 mg/dL (75-99)
[2017-08-05] MEDS: PANTOPRAZOLE 40 MG TABLET PO SCH (07:17)
[2017-08-05] MEDS: HEPARIN SODIUM,PORCINE 5,000 UNIT/ML 1 ML VIAL SQ SCH ×3 (07:36→23:20)
[2017-08-05] MEDS: hydrALAZINE HCL 25 MG TAB PO SCH ×2 (07:37→19:50)
[2017-08-05] MEDS: HYDROXYUREA 500 MG CAP PO SCH ×3 (07:37→19:51)
[2017-08-05] MEDS: ALLOPURINOL 300 MG TAB PO SCH (07:37)
[2017-08-05] MEDS: GABAPENTIN 300 MG CAP PO SCH ×2 (07:38→19:50)
[2017-08-05 07:42] LABS: Albumin 3.5 g/dL (3.5-5.0); Calcium 8.8 mg/dL (8.4-10.2); Potassium 4.9 mmol/L (3.5-5.1); Total Protein 5.5 g/dL (6.3-8.2)
[2017-08-05 08:06] LABS: Anisocytosis Slight; Basophils % (A) 1 %; Eosinophils # (A) 0.1 k/uL (0-0.7); Eosinophils % (A) 1 %; HCT 35.8 % (39.0-53.0); HGB 11.5 gm/dL (13.0-17.5); Hypochromasia Slight; Lymphocytes # (A) 0.4 k/uL (1.0-4.8); Lymphocytes % (A) 9 %; MCH 39.7 pg (25.0-35.0); MCHC 32.1 g/dL (31.0-37.0); MCV 123.6 fL (80.0-100.0); Macrocytosis Marked; Mean Platelet Volume 7.3; Monocytes # (A) 0.2 k/uL (0-1.0); Monocytes % (A) 5 %; Neutrophils # (A) 3.2 k/uL (1.3-7.7); Neutrophils % (A) 82 %; Poikilocytosis Slight; RDW 17.9 % (11.5-15.5)
[2017-08-05 08:14] LABS: Platelet Count 623 k/uL (150-450)
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
[2017-08-05 10:35] LABS: Polychromasia Present
--- NOTE | 2017-08-05 10:45 | MR ---
EXAMINATION TYPE: MR brain wo/w con DATE OF EXAM: 08/05/2017 COMPARISON: Prior MRI brain January 13, 2016. Prior CT brain from 2 days ago. HISTORY: Patient with acute syncope vs. seizure on admission 2 days ago. TECHNIQUE: Multiplanar, multisequence images of the brain and brainstem is performed without and with IV contras t, utilizing 9.5 mL intravenous Gadavist . FINDINGS: Diffusion weighted images demonstrate no evidence of a recent infarct or other diffusion ab normality. There is no worrisome extra-axial fluid collection. There is ventricular and sulcal promi nence consistent with diffuse cerebral atrophy. There are focal and confluent areas of T2 hyperintens ity seen throughout the deep and periventricular white matter, there is some left frontal subcortical involvement axial image 21 redemonstrated. Lesions are nonspecific in appearance and distribution bu t most likely on basis of product of chronic small vessel ischemic change in patient of this age. Midline structures demonstrate normal morphology. The craniocervical junction appears within normal limits. Post contrast images demonstrate no abnormal enhancement. The dural venous sinuses appear pa tent. Mild to minimal mucosal thickening in right maxillary sinus inferiorly is present otherwise par anasal sinuses are clear. The globes are intact bilaterally. IMPRESSION: 1. There is mild diffuse cerebral atrophy and moderate nonspecific white matter changes most likely o n basis of product of chronic small vessel ischemic change redemonstrated. No significant change from prior MRI. No suspicious enhancement is seen.
[2017-08-05 11:18] LABS: Glucose,Whole Blood 108 mg/dL (75-99)
[2017-08-05 16:29] LABS: Glucose,Whole Blood 102 mg/dL (75-99)
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
[2017-08-05 20:24] LABS: Glucose,Whole Blood 157 mg/dL (75-99)
[2017-08-06 03:57] VITALS: RESP 18
[2017-08-06 06:10] LABS: Glucose,Whole Blood 107 mg/dL (75-99)
[2017-08-06 06:10] LABS: Calcium 8.5 mg/dL (8.4-10.2); Magnesium 2.2 mg/dL (1.6-2.3); Potassium 4.9 mmol/L (3.5-5.1)
[2017-08-06 06:25] LABS: Anisocytosis Slight; HCT 33.5 % (39.0-53.0); HGB 10.9 gm/dL (13.0-17.5); Hypochromasia Slight; MCH 40.1 pg (25.0-35.0); MCHC 32.5 g/dL (31.0-37.0); MCV 123.1 fL (80.0-100.0); Macrocytosis Marked; Mean Platelet Volume 7.5; Platelet Count 601 k/uL (150-450); Poikilocytosis Slight; RBC 2.72 m/uL (4.30-5.90); RDW 17.9 % (11.5-15.5)
[2017-08-06 06:51] LABS: Basophils # (M) 0.04 k/uL (0-0.2); Lymphocytes # (M) 0.66 k/uL (1.0-4.8); Monocytes # (M) 0.29 k/uL (0-1.0); Neutrophils % (M) 78 %; Nucleated Red Blood Cells 3 /100 WBC (0-0); Total Cells Counted 200; WBC 4.1 k/uL (3.8-10.6)
[2017-08-06] MEDS: PANTOPRAZOLE 40 MG TABLET PO SCH (06:52)
[2017-08-06] MEDS ORDERED: METOPROLOL TARTRATE 25 MG TAB PO SCH (09:00)
[2017-08-06] MEDS: GABAPENTIN 300 MG CAP PO SCH (09:04)
[2017-08-06] MEDS: HYDROXYUREA 500 MG CAP PO SCH (09:04)
[2017-08-06] MEDS: HEPARIN SODIUM,PORCINE 5,000 UNIT/ML 1 ML VIAL SQ SCH (09:04)
[2017-08-06] MEDS: hydrALAZINE HCL 25 MG TAB PO SCH (09:05)
[2017-08-06] MEDS: ALLOPURINOL 300 MG TAB PO SCH (09:05)
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
--- NOTE | 2017-08-06 10:36 | ECHOF ---
Referral Reason:Thrombus MEASUREMENTS -------- HEIGHT: 152.4 cm WEIGHT: 93.9 kg BP: 127/79 RVIDd: 2.7 cm (< 3.3) IVSd: 1.3 cm (0.6 - 1.1) LVIDd: 5.2 cm (3.9 - 5.3) LVPWd: 1.1 cm (0.6 - 1.1) IVSs: 1.6 cm LVIDs: 3.8 cm LVPWs: 1.7 cm LA Diam: 3.7 cm (2.7 - 3.8) LAESV Index (A-L): 36.72 ml/m Ao Diam: 3.2 cm (2.0 - 3.7) AV Cusp: 2.2 cm (1.5 - 2.6) LA Diam: 4.5 cm (2.7 - 3.8) MV EXCURSION: 14.382 mm (> 18.000) MV EF SLOPE: 75 mm/s (70 - 150) EPSS: 1.0 cm MV E Shan: 0.92 m/s MV DecT: 169 ms MV A Shan: 1.13 m/s MV E/A Ratio: 0.81 RAP: 5.00 mmHg RVSP: 43.81 mmHg FINDINGS -------- Undetermined rhythm. This was a technically adequate study. The left ventricular size is normal. There is mild concentric left ventricular hypertrophy. Overa ll left ventricular systolic function is normal with, an EF between 55 - 60 %. The right ventricle is normal in size. The left atrium is moderately dilated. LA is moderately dilated 34-39 ml/m2 The right atrial size is normal. There is mild aortic valve sclerosis. There is no evidence of aortic regurgitation. Mild mitral annular calcification present. Mild mitral regurgitation is present. Mild tricuspid regurgitation present. There is mild pulmonary hypertension. The right ventricular systolic pressure, as measured by Doppler, is 43.81mmHg. There is no pulmonic regurgitation present. The aortic root size is normal. There is no pericardial effusion. CONCLUSIONS -------- 1. The left ventricular size is normal. 2. There is mild concentric left ventricular hypertrophy. 3. The right ventricle is normal in size. 4. The left atrium is moderately dilated. 5. LA is moderately dilated 34-39 ml/m2 6. The right atrial size is normal. 7. There is mild aortic valve sclerosis. 8. Mild mitral annular calcification present. 9. Mild mitral regurgitation is present. 10. Mild tricuspid regurgitation present. 11. There is mild pulmonary hypertension. 12. The right ventricular systolic pressure, as measured by Doppler, is 43.81mmHg. 13. There is no pulmonic regurgitation present. 14. The aortic root size is normal. 15. There is no pericardial effusion. GLASS CURVATURE GAUGER: Franci Ruby RDCS
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
[2017-08-06 11:34] LABS: Glucose,Whole Blood 104 mg/dL (75-99)
[2017-08-06 13:49] VITALS: BP 136/65; PULSE 67; TEMP 97.1
--- NOTE | 2017-08-08 07:25 | CDI ---
Documentation Clarification Form Date: 08/08/2017 12:00:00 AM From: MILES Murphy; Jaimee Camarena Crop Production Advisor Phone: If you have a question about this query, please contact Jaimee Camarena Crop Production Advisor at [phone] between 8am and 5pm Admit Date: 08/03/2017 5:04:00 PM Patient Name: Hector Esqueda Visit Number: [id number] Discharge Date: 08/06/2017 ATTENTION: The Clinical Documentation Specialists (CDI) and [facility] Coding Staff appreciate your assistance in clarifying documentation. Please respond to the clarification below the line at the bottom and electronically sign. The CDI & [facility] Coding staff will review the response and follow-up if needed. Please note: Queries are made part of the Legal Health Record. If you have any questions, please contact the author of this message via ITS. Dr. Laurita Sandra The patient presented with syncope episode. Progress note dated 08/05 states most likely cause of the syncope is ventricular tachycardia. The discharge summary states vasovagal syncope with possible seizure. The patients principal diagnosis has not been clearly identified and requires clarification. In your professional opinion, can you please clarify which diagnosis, after study, accounted for the patients presenting symptoms and was the reason chiefly responsible for the admission? Syncope secondary to ventricular tachycardia Vasovagal syncope Seizure Other, please specify Unknown MTDD
--- NOTE | 2017-08-19 10:33 | CDI ---
Documentation Clarification Form Date 08/19/2017 12:00:00 AM From: MILES Murphy; [facility] [place] [employer] Location Manager Phone: If you have a question about this query, please contact [facility] [place] [employer] Location Manager at [phone] between 8am and 5pm Admit Date: 08/03/2017 5:04:00 PM Patient Name: Hector Esqueda Visit Number: [id number] Discharge Date: 08/06/2017 ATTENTION: The Clinical Documentation Specialists (CDI) and [facility] Coding Staff appreciate your assistance in clarifying documentation. Please respond to the clarification below the line at the bottom and electronically sign. The CDI & [facility] Coding staff will review the response and follow-up if needed. Please note: Queries are made part of the Legal Health Record. If you have any questions, please contact the author of this message via ITS. Dr. Laurita Sandra The patient presented with syncope episode. Progress note dated 08/05 states most likely cause of the syncope is ventricular tachycardia. The discharge summary states vasovagal syncope with possible seizure. The patients principal diagnosis has not been clearly identified and requires clarification. In your professional opinion, can you please clarify which diagnosis, after study, accounted for the patients presenting symptoms and was the reason chiefly responsible for the admission? Syncope secondary to ventricular tachycardia Vasovagal syncope Possible Seizure Other, please specify Unknown MTDD
== END 2017-08-06 15:02 | disposition home or self-care (01) | DRG 312 ==
LOC: EC 14:59 → OBSVTOIN 17:04 → 3OBS 17:04 → 6SEL 18:32
PROVIDERS: ADMIT Internal Medicine; ATTEND Internal Medicine
DX: R55 Syncope and collapse (principal); I47.2 Ventricular tachycardia; N17.9 Acute kidney failure, unspecified; D47.3 Essential (hemorrhagic) thrombocythemia; D64.9 Anemia, unspecified; E78.5 Hyperlipidemia, unspecified; G47.33 Obstructive sleep apnea (adult) (pediatric); I49.3 Ventricular premature depolarization; K21.9 Gastro-esophageal reflux disease without esophagitis; M10.9 Gout, unspecified; M19.90 Unspecified osteoarthritis, unspecified site; M47.812 Spondylosis without myelopathy or radiculopathy, cervical region; N18.2 Chronic kidney disease, stage 2 (mild); R56.9 Unspecified convulsions; Z79.82 Long term (current) use of aspirin; Z79.899 Other long term (current) drug therapy; Z82.3 Family history of stroke; Z82.49 Family history of ischemic heart disease and other diseases of the circulatory system; Z82.71 Family history of polycystic kidney; Z83.3 Family history of diabetes mellitus; Z85.828 Personal history of other malignant neoplasm of skin; Z86.73 Personal history of transient ischemic attack (TIA), and cerebral infarction without residual deficits; Z98.41 Cataract extraction status, right eye; Z96.1 Presence of intraocular lens; Z96.643 Presence of artificial hip joint, bilateral; G89.29 Other chronic pain; Z91.030 Bee allergy status; I13.10 Hypertensive heart and chronic kidney disease without heart failure, with stage 1 through stage 4 chronic kidney disease, or unspecified chronic kidney disease; R40.2142 Coma scale, eyes open, spontaneous, at arrival to emergency department; R40.2362 Coma scale, best motor response, obeys commands, at arrival to emergency department; R40.2252 Coma scale, best verbal response, oriented, at arrival to emergency department
CPT/HCPCS: 36415; 70450; 70553; 71046; 72125; 80048; 80053; 80061; 81001; 82550; 82553; 83735; 84484; 85025; 85610; 85730; 93005; 93306; 93880; 95819; 99211; 99285

== ENCOUNTER 2017-08-07 08:49 | Day surgery (SDC) | payer MEDICARE ==
[2017-08-06 12:27] VITALS: BMI 29.4
[2017-08-07] MEDS ORDERED: IV FLUID CONTINUATION 1,000 ML IV ONE (10:43)
[2017-08-07 10:59] VITALS: RESP 16
[2017-08-07 11:01] VITALS: BP 135/62; PULSE 64
--- NOTE | 2017-08-07 11:18 | P.PCN ---
Date of Procedure: 08/07/17 Procedure(s) Performed: . PROCEDURE 1. Cervical epidural steroid injection under fluoroscopic guidance, C7-T1 2. Cervical epidurogram. PREOPERATIVE DIAGNOSIS: 1- Cervical Degenerative Disc Diseases 2- Cervical spinal stenosis POSTOPERATIVE DIAGNOSIS: : 1- Cervical Degenerative Disc Diseases , 2- Cervical spinal stenosis ANESTHESIA: Local anesthesia with 1% lidocaine and IV sedation with Versed 1 mg and Fentanyl 50 mcg. EBL 0 PROCEDURE INDICATION: The patient with neck pain and radiculitis unresponsive to conservative treatment consents for procedure. PROCEDURE DESCRIPTION / TECHNIQUE: The patient was seen and identified in the preoperative area. Risks, benefits, complications, including but not limited to infections ,bleeding , allergic reactions to the medications ,and not complete pain releife, and alternatives were discussed with the patient, the patient agreed to proceed with the procedure and signed the consent. Patient was taken to the OR and time out was completed. The patient was placed in the prone position on the procedure table. A pillow was placed under the patients chest to increase the cervical interlaminar space. The cervical area was prepped and draped in the usual sterile fashion. Vital signs were closely monitored during the procedure. Conscious sedation was used during the procedure to decrease patients anxiety. Using anterior-posterior fluoroscopy, the C7-T1 interlaminar space was identified and the skin over this site was marked and then infiltrated with 1% lidocaine subcutaneously. Subsequently, a 20-gauge 3-1/2-inch Tuohy epidural needle was inserted and advanced toward the epidural space by means of the `` hanging-drop technique and guided by AP and lateral fluoroscopy. The correct needle position in the epidural space was verified with the injection of 2 mL of the water soluble contrast dye [id number] and observing an excellent epidurogram with the epidural spread of the dye, after negative aspiration for blood and CSF and in the absence of paresthesias. Again after negative aspiration, mixture containing 20 mg Dexamethasone and 2 ml of preservative- free normal saline injected and a washout of epidurogram was seen. Needle was withdrawn intact, skin was cleansed, and bandages were applied. Complications= none. Disposition= patient was placed in supine position and transferred to the recovery room area in stable condition and there was no evidence of upper or lower extremity motor or sensory deficit after the procedure patient was discharged from recovery room after discharge criteria met and home discharge instructions was given by the staff and patient will follow with the pain clinic in 2-4 weeks
--- NOTE | 2017-08-07 12:45 | FL ---
Fluoroscopy HISTORY: Pain 1 seconds fluoroscopy time supplied to the referring clinician. 1 intraoperative C-arm images docume nt the procedure. See dictated report from anesthesia.
== END 2017-08-07 11:27 | disposition home or self-care (01) ==
LOC: ORPAIN 08:49
PROVIDERS: ATTEND Specialist
DX: M48.02 Spinal stenosis, cervical region (principal); M50.10 Cervical disc disorder with radiculopathy, unspecified cervical region; I10 Essential (primary) hypertension; Z86.73 Personal history of transient ischemic attack (TIA), and cerebral infarction without residual deficits; Z91.030 Bee allergy status
CPT/HCPCS: 62321; J1100; Q9966

== ENCOUNTER 2017-08-20 14:18 | Emergency (ER) | payer MEDICARE ==
[2017-08-20] MEDS ORDERED: fentaNYL (PF) 50 MCG/ML 2 ML AMP IVP STA (14:40)
--- NOTE | 2017-08-20 14:43 | ED ---
General Adult HPI - General Chief complaint: Urogenital Stated complaint: Male -sent by Source: patient Mode of arrival: wheelchair Limitations: no limitations - History of Present Illness Initial comments: Dictation was produced using [employer] dictation software. please excuse any grammatical, word or spelling errors. Chief Complaint: 81-year-old male past medical history of cancer, CVA , hypertension, dyslipidemia, hernia repair and C performed as a child presents with left groin pain. History of Present Illness: Patient was sent in by primary care physician for acute onset left-sided groin pain. Patient was admitted to the hospital recently for concussion-like symptoms after traumatic head injury. Since 7:00 this morning patient began having left-sided groin pain. Denies any constitutional symptoms. States that he is having burning on urination. Recently patient had straight cath for urine sample on last admission. Patient does complain of dysuria. He does have some abdominal pain. As a child patient had testicular surgery. He also reports having had hernia surgery. Denies any nausea vomiting however has had changes in bowel habits. The ROS documented in this emergency department record has been reviewed and confirmed by me. Those systems with pertinent positive or negative responses have been documented in the HPI. All other systems are other negative and/or noncontributory. - Related Data Home Medications Medication Instructions Recorded Confirmed Allopurinol [Zyloprim] 300 mg PO DAILY 09/01/13 08/20/17 Hydroxyurea [Hydrea] 500 mg PO TID 09/01/13 08/20/17 hydrALAZINE HCL [Apresoline] 25 mg PO BID 09/01/13 08/20/17 Aspirin 325 mg PO DAILY 08/02/16 08/20/17 EPINEPHrine (Auto Inject) [Epipen] 0.3 mg IM ONCE PRN 01/06/17 08/20/17 Gabapentin [Neurontin] 300 mg PO BID 06/13/17 08/20/17 Cholecalciferol (Vitamin D3) 2,000 unit PO HS 08/04/17 08/20/17 [Vitamin D3] Pantoprazole Sodium [Protonix] 40 mg PO AC-BRKFST 08/04/17 08/20/17 Betamethasone Dipropionate 1 applic TOPICAL DAILY 08/20/17 08/20/17 [Diprolene AF 0.05% Cream] Previous Rx's Medication Instructions Recorded Acetaminophen Tab [Tylenol] 650 mg PO Q6HR PRN tab 08/06/17 Metoprolol Tartrate 25 mg PO BID #60 tab 08/06/17 HYDROcodone/APAP 5-325MG [[place] 1 tab PO Q6HR PRN 3 Days #6 tab 08/20/17 5-325] Allergies Allergy/AdvReac Type Severity Reaction Status Date / Time venom-honey bee Allergy Anaphylaxis Verified 08/20/17 14:43 [bee venom (honey bee)] Review of Systems ROS Statement: Those systems with pertinent positive or pertinent negative responses have been documented in the HPI. ROS Other: All systems not noted in ROS Statement are negative. 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 rt groin swelling redness,and hardness to area-to see 08/20/17, recent passing out History of Any Multi-Drug Resistant Organisms: None Reported Past Surgical History: Adenoidectomy, Hernia Repair, Joint Replacement, Orthopedic Surgery, Tonsillectomy Additional Past Surgical History / Comment(s): R kidney donor, kiesha hip replacement, L hand trigger finger sx, uvuloplasty, left carotid stent, bilateral inguinal hernia repair, deviated septum repair, colonoscopy, R cataract removal with lens-now has membrane problem and plugged R tear duct. Pain procedures Past Anesthesia/Blood Transfusion Reactions: No Reported Reaction Past Psychological History: No Psychological Hx Reported Smoking Status: Never smoker Past Alcohol Use History: Daily Past Drug Use History: None Reported - Past Family History Father Family Medical History: CVA/TIA Additional Family Medical History / Comment(s): Father at 80 from stroke Mother Family Medical History: Renal Disease Additional Family Medical History / Comment(s): Mother at age 55 from polycystic kidney disease. Brother(s) Additional Family Medical History / Comment(s): Patient has 1 brother with multiple medical problems including diabetes. Sister(s) Family Medical History: Renal Disease Additional Family Medical History / Comment(s): Patient has one sister that at age 60 from kidney failure due to polycystic kidney disease. Daughter(s) Family Medical History: No Reported History Additional Family Medical History / Comment(s): Patient has one daughter with no major medical problems. Son(s) Additional Family Medical History / Comment(s): Patient has 5 sons. 2 at premature . One while skiing from a myocardial infarction at age 32. One son is alive with no major medical problems. General Exam - General Exam Comments Initial Comments: PHYSICAL EXAM: General Impression: Alert and oriented x3, acute distress secondary to pain HEENT: Normocephalic atraumatic, extra-ocular movements intact, pupils equal and reactive to light bilaterally, mucous membranes moist. Cardiovascular: Heart regular rate and rhythm, S1&S2 audible, no murmurs, rubs or gallops Chest: Lungs clear to auscultation bilaterally, no rhonchi, no wheeze, no rales Abdomen: Tenderness to palpation of the left lower quadrant Musculoskeletal: Pulses present and equal in all extremities, no peripheral edema Motor: Power 5/5 bilaterally, no focal deficits noted Neurological: CN II-XII grossly intact, no focal motor or sensory deficits noted Skin: Intact with no visualized rashes Psych: Normal affect and mood : Erythematous tender left groin area. Left testicle is suspended over the groin and not in the scrotum Limitations: no limitations Course Vital Signs 08/20/17 08/20/17 14:20 16:27 Temperature 97.8 F 98.2 F Pulse Rate 86 80 Respiratory 20 18 Rate Blood Pressure 135/71 139/63 O2 Sat by Pulse 98 96 Oximetry Medical Decision Making - Medical Decision Making ED course: 81-year-old male with multiple comorbidities presents with left-sided groin pain. Patient has history of testicular surgery as a child. Clinical presentation suspicious for incarcerated/strangulate in hernia versus orchitis.Discussed patient case with patient's primary care physician Dr. Sandra who sent patient in for medical evaluation. He requested patient received a ultrasound of the scrotum to evaluate for testicular torsion. Laboratory evaluation obtained. CBC shows hemoglobin of 9.4. Platelet count of 1063. Patient is complaining any bleeding issues. Patient's hemoglobin is 9.4 which is close his most recent last month ago 10.9. Patient has some thrombocytosis. Cumbersome metabolic panel shows potassium of 5.5, chloride of 108, creatinine 1.70. Primary care physician was not concerned about these other abnormal lab values. Patient has slight elevation in renal markers. Urinalysis obtained showing greater than 182 white blood cells, positive nitrites. CT of the abdomen and pelvis was obtained because patient had abdominal pain with groin pain concerning for intra-abdominal process. CT showed incidental findings in the right lung base. Patient not complaining of any chest pain or cough. He is inflammatory changes in the distal ureteral canal. No signs of hernia. Ultrasound of the scrotum showed findings to suggest orchitis. No findings to suggest torsion. Patient has abnormal lying testicle secondary to procedures done as a child. He does not report any changes to the location of his testicle. Discussed findings with Dr. Sandra who will be managing patient's symptoms outpatient. Primary care physician already called in antibiotics for patient to fill. Patient given by mouth analgesics to be taken for severe pain. Patient is understandable agreeable to this plan. Patient completed one dose of Unasyn. - Lab Data Result diagrams: 08/20/17 15:00 08/20/17 15:00 Lab Results 08/20/17 08/20/17 08/20/17 Range/Units 15:00 15:00 15:00 WBC 7.1 (3.8-10.6) k/uL RBC 2.43 L (4.30-5.90) m/uL Hgb 9.4 L D (13.0-17.5) gm/dL Hct 29.6 L (39.0-53.0) % MCV 121.7 H (80.0-100.0) fL MCH 38.8 H (25.0-35.0) pg MCHC 31.9 (31.0-37.0) g/dL RDW 18.1 H (11.5-15.5) % Plt Count 1063 H* (150-450) k/uL Neutrophils % 76 % Lymphocytes % 11 % Monocytes % 7 % Eosinophils % 1 % Basophils % 1 % Neutrophils # 5.4 (1.3-7.7) k/uL Lymphocytes # 0.8 L (1.0-4.8) k/uL Monocytes # 0.5 (0-1.0) k/uL Eosinophils # 0.1 (0-0.7) k/uL Basophils # 0.1 (0-0.2) k/uL Hypochromasia Slight Poikilocytosis Slight Anisocytosis Slight Macrocytosis Marked Sodium 141 (137-145) mmol/L Potassium 5.5 H (3.5-5.1) mmol/L Chloride 108 H (98-107) mmol/L Carbon Dioxide 22 (22-30) mmol/L Anion Gap 11 mmol/L BUN 35 H (9-20) mg/dL Creatinine 1.70 H (0.66-1.25) mg/dL Est GFR (CKD-EPI)AfAm 43 (>60 ml/min/1.73 sqM) Est GFR (CKD-EPI)NonAf 37 (>60 ml/min/1.73 sqM) Glucose 109 H (74-99) mg/dL Plasma Lactic Acid Ganesh (0.7-2.0) mmol/L Calcium 8.9 (8.4-10.2) mg/dL Total Bilirubin 0.8 (0.2-1.3) mg/dL AST 18 (17-59) U/L ALT 23 (21-72) U/L Alkaline Phosphatase 48 (38-126) U/L Total Protein 5.6 L (6.3-8.2) g/dL Albumin 3.3 L (3.5-5.0) g/dL Urine Color Yellow Urine Appearance Cloudy (Clear) Urine pH 5.5 (5.0-8.0) Ur Specific Locke 1.013 (1.001-1.035) Urine Protein 1+ H (Negative) Urine Glucose (UA) Negative (Negative) Urine Ketones Negative (Negative) Urine Blood Negative (Negative) Urine Nitrite Positive (Negative) Urine Bilirubin Negative (Negative) Urine Urobilinogen 2.0 (<2.0) mg/dL Ur Leukocyte Esterase Large H (Negative) Urine WBC >182 H (0-5) /hpf Urine WBC Clumps Many H (None) /hpf Urine Bacteria Many H (None) /hpf Hyaline Casts 10 H (0-2) /lpf Urine Mucus Rare H (None) /hpf 08/20/17 Range/Units 15:00 WBC (3.8-10.6) k/uL RBC (4.30-5.90) m/uL Hgb (13.0-17.5) gm/dL Hct (39.0-53.0) % MCV (80.0-100.0) fL MCH (25.0-35.0) pg MCHC (31.0-37.0) g/dL RDW (11.5-15.5) % Plt Count (150-450) k/uL Neutrophils % % Lymphocytes % % Monocytes % % Eosinophils % % Basophils % % Neutrophils # (1.3-7.7) k/uL Lymphocytes # (1.0-4.8) k/uL Monocytes # (0-1.0) k/uL Eosinophils # (0-0.7) k/uL Basophils # (0-0.2) k/uL Hypochromasia Poikilocytosis Anisocytosis Macrocytosis Sodium (137-145) mmol/L Potassium (3.5-5.1) mmol/L Chloride (98-107) mmol/L Carbon Dioxide (22-30) mmol/L Anion Gap mmol/L BUN (9-20) mg/dL Creatinine (0.66-1.25) mg/dL Est GFR (CKD-EPI)AfAm (>60 ml/min/1.73 sqM) Est GFR (CKD-EPI)NonAf (>60 ml/min/1.73 sqM) Glucose (74-99) mg/dL Plasma Lactic Acid Ganesh 0.9 (0.7-2.0) mmol/L Calcium (8.4-10.2) mg/dL Total Bilirubin (0.2-1.3) mg/dL AST (17-59) U/L ALT (21-72) U/L Alkaline Phosphatase (38-126) U/L Total Protein (6.3-8.2) g/dL Albumin (3.5-5.0) g/dL Urine Color Urine Appearance (Clear) Urine pH (5.0-8.0) Ur Specific [place] (1.001-1.035) Urine Protein (Negative) Urine Glucose (UA) (Negative) Urine Ketones (Negative) Urine Blood (Negative) Urine Nitrite (Negative) Urine Bilirubin (Negative) Urine Urobilinogen (<2.0) mg/dL Ur Leukocyte Esterase (Negative) Urine WBC (0-5) /hpf Urine WBC Clumps (None) /hpf Urine Bacteria (None) /hpf Hyaline Casts (0-2) /lpf Urine Mucus (None) /hpf Disposition Clinical Impression: Orchitis Disposition: HOME SELF-CARE Instructions: Orchitis (ED) Prescriptions: HYDROcodone/APAP 5-325MG [[place] 5-325] 1 tab PO Q6HR PRN 3 Days #6 tab PRN Reason: Pain Is patient prescribed a controlled substance at d/c from ED?: Yes When asked, does pt state using other controlled substances?: No If prescribed controlled substance>3 days was MAPS reviewed?: Prescribed <3 Days Referrals: Laurita Sandra MD [Primary Care Provider] - 1-2 days Decision Time: 17:02
[2017-08-20 15:25] LABS: Anisocytosis Slight; Basophils # (A) 0.1 k/uL (0-0.2); Basophils % (A) 1 %; Eosinophils # (A) 0.1 k/uL (0-0.7); Eosinophils % (A) 1 %; HCT 29.6 % (39.0-53.0); Hypochromasia Slight; Lymphocytes # (A) 0.8 k/uL (1.0-4.8); Lymphocytes % (A) 11 %; MCH 38.8 pg (25.0-35.0); MCHC 31.9 g/dL (31.0-37.0); MCV 121.7 fL (80.0-100.0); Macrocytosis Marked; Mean Platelet Volume 7.4; Monocytes # (A) 0.5 k/uL (0-1.0); Monocytes % (A) 7 %; Neutrophils # (A) 5.4 k/uL (1.3-7.7); Neutrophils % (A) 76 %; Poikilocytosis Slight; RBC 2.43 m/uL (4.30-5.90); RDW 18.1 % (11.5-15.5); WBC 7.1 k/uL (3.8-10.6)
[2017-08-20 15:26] LABS: HGB 9.4 gm/dL (13.0-17.5); Platelet Count 1063 k/uL (150-450)
[2017-08-20 15:28] LABS: Appearance,Urine Cloudy (Clear); Bacteria,Urine Many /hpf; Bilirubin,Urine Negative (Negative); Blood,Urine Negative (Negative); Color,Urine Yellow; Glucose,Urine (UA) Negative (Negative); Hyaline Casts,Urine 10 /lpf (0-2); Ketones,Urine Negative (Negative); Leukocyte Esterase,Urine Large (Negative); Mucus,Urine Rare /hpf; Nitrite,Urine Positive (Negative); PH, Urine 5.5 (5.0-8.0); Protein,Urine 1+ (Negative); Specific Gravity,Urine 1.013 (1.001-1.035); WBC,Urine >182 /hpf (0-5)
[2017-08-20] MEDS ORDERED: cefTRIAXone IN SWFI 1,000 MG/10 ML SYRINGE IVP STA (15:32)
[2017-08-20] MEDS ORDERED: AMPICILLIN-SULBACTAM 3 GM in SODIUM CHLORIDE 0.9% 100 ML IVPB STA (15:35)
[2017-08-20 15:36] LABS: Albumin 3.3 g/dL (3.5-5.0); Calcium 8.9 mg/dL (8.4-10.2); Potassium 5.5 mmol/L (3.5-5.1); Total Bilirubin 0.8 mg/dL (0.2-1.3); Total Protein 5.6 g/dL (6.3-8.2)
--- NOTE | 2017-08-20 15:58 | CT ---
EXAMINATION TYPE: CT abdomen pelvis wo con DATE OF EXAM: 08/20/2017 COMPARISON: Prior CT 01/06/2017 HISTORY: LLQ abd pain CT DLP: 723.70 mGycm Automated exposure control for dose reduction was used. TECHNIQUE: Helical acquisition of images from the lung bases through the pelvis. FINDINGS: Lack of contrast could compromise sensitivity exam. The heart shows some coronary artery ca lcifications. LUNG BASES: There is patchy density present at the right lung base. No pleural effusion.. AORTA: No significant abnormality is appreciated. LIVER/GB: No significant abnormality is appreciated. PANCREAS: Scattered calcifications could be due to chronic pancreatitis.. SPLEEN: Enlarged. ADRENALS: No significant abnormality is seen. KIDNEYS: Patient is post right nephrectomy. Partial duplication of the left renal collecting system. REPRODUCTIVE ORGANS: Inflammatory change is suspected along the distal aspect of the inguinal canal on the left, there may be scrotal edema. URINARY BLADDER: There may be a calcification within the urinary bladder, detail is obscured, findin gs likely stable. BOWEL: Extensive diverticular change noted in the sigmoid colon, colonic wall thickening is noted at the rectosigmoid, findings are similar to prior exam, difficult to exclude a mucosal lesion. Colonic interposition noted anterior to the liver. FREE AIR: No Free Air is visible. ASCITES: None visible. PELVIC ADENOPATHY: None visualized. RETROPERITONEAL ADENOPATHY: No Retroperitoneal Adenopathy visible. Surgical clips are present in the retroperitoneum OSSEOUS STRUCTURES: There are degenerative disc changes, facet arthropathy visualized spine, possibl e spinal stenosis at L4-5 and L3-4. Streak artifact due to bilateral hip prostheses limits evaluation pelvis. IMPRESSION: CORRELATE FOR POSSIBLE INFLAMMATORY CHANGE IN THE DISTAL URETERAL CANAL, ABNORMAL SCROTAL SWELLING. D IFFICULT TO EXCLUDE CALCIFICATION WITHIN THE BLADDER MEASURING ONLY 3 TO 4 MM BUT LIKELY STABLE. SPLE NOMEGALY. POSSIBLE RIGHT LOWER LOBE PNEUMONIA OR ATELECTASIS, POSSIBLE CHRONIC PANCREATITIS CHANGE CO RRELATE. DIVERTICULOSIS. LIMITATIONS ABOVE. SPINAL STENOSIS, DEGENERATIVE DISC DISEASE, FACET ARTH ROPATHY. DEGENERATIVE DISC DISEASE.
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
[2017-08-20 16:28] VITALS: RESP 18
[2017-08-20 17:14] VITALS: BP 140/73; PULSE 78; TEMP 97.9
== END 2017-08-20 17:42 | disposition home or self-care (01) ==
LOC: EC 14:18
DX: N45.2 Orchitis (principal); K21.9 Gastro-esophageal reflux disease without esophagitis; I10 Essential (primary) hypertension; M10.9 Gout, unspecified; D47.3 Essential (hemorrhagic) thrombocythemia; G47.30 Sleep apnea, unspecified; Z99.89 Dependence on other enabling machines and devices; Z85.828 Personal history of other malignant neoplasm of skin; Z86.73 Personal history of transient ischemic attack (TIA), and cerebral infarction without residual deficits; Z98.890 Other specified postprocedural states; Z79.82 Long term (current) use of aspirin; Z79.52 Long term (current) use of systemic steroids; Z79.899 Other long term (current) drug therapy; Z91.030 Bee allergy status; Z90.5 Acquired absence of kidney
CPT/HCPCS: 36415; 93005; 80053; 83605; 85025; 81001; 87086; 93975; 76870; 74176; 99284; 96365; 96375 ×2; J0696; J3010; J0295; 87077; 87186

== ENCOUNTER 2017-08-25 09:39 | Inpatient (IN) | payer MEDICARE ==
[2017-08-25] MEDS ORDERED: SODIUM CHLORIDE 0.9% 1,000 ML IV STA (10:03)
[2017-08-25] MEDS ORDERED: ONDANSETRON 4 MG/2 ML VIAL IVP STA ×2 (10:03→12:46)
--- NOTE | 2017-08-25 10:08 | ED ---
Abdominal Pain HPI - General Source: patient, family, EMS, RN notes reviewed Mode of arrival: EMS Limitations: no limitations <Kenneth Lobato - Last Filed: 08/25/17 16:11> <Monse Healy - Last Filed: 08/25/17 22:15> - General Chief Complaint: Abdominal Pain Stated Complaint: Abd Pain Time Seen by Provider: 08/25/17 09:43 - History of Present Illness Initial Comments: This is an 81-year-old male presents emergency department via EMS chief complaint abdominal pain. Patient was seen here 5 days ago for left groin pain , mild abdominal discomfort and was diagnosed with orchitis, UTI. Patient was started on antibiotics by PCP prior to him come to the hospital. Patient states he currently is taking Levaquin and steroids. Patient got today and said increasing amount of abdominal pain rather than left groin pain as he had before. He is had several episodes of vomiting in the pain is all across his abdomen. He reports no fever or chills. He did have a normal colored bowel movement this morning. He states it has been more loose than usual secondary to the antibiotics. Patient did have CT when he was here 5 days ago which showed moderate amount of scrotal swelling, inflammation along the ureter. Patient denies any back pain, chest pain, shortness of breath. Patient states all this pain is in his lower abdomen. (Kenneht Lobato) - Related Data Home Medications Medication Instructions Recorded Confirmed Allopurinol [Zyloprim] 300 mg PO DAILY 09/01/13 08/25/17 Hydroxyurea [Hydrea] 500 mg PO TID 09/01/13 08/25/17 hydrALAZINE HCL [Apresoline] 25 mg PO BID 09/01/13 08/25/17 Aspirin 325 mg PO DAILY 08/02/16 08/25/17 EPINEPHrine (Auto Inject) [Epipen] 0.3 mg IM ONCE PRN 01/06/17 08/25/17 Gabapentin [Neurontin] 300 mg PO BID 06/13/17 08/25/17 Cholecalciferol (Vitamin D3) 2,000 unit PO HS 08/04/17 08/25/17 [Vitamin D3] Pantoprazole Sodium [Protonix] 40 mg PO AC-BRKFST 08/04/17 08/25/17 Betamethasone Dipropionate 1 applic TOPICAL DAILY 08/20/17 08/25/17 [Diprolene AF 0.05% Cream] Levofloxacin [Levaquin] 500 mg PO DAILY 08/25/17 08/25/17 methylPREDNISolone [Medrol Dose See Taper PO DIRECTED 08/25/17 08/25/17 Pack] Previous Rx's Medication Instructions Recorded Acetaminophen Tab [Tylenol] 650 mg PO Q6HR PRN tab 08/06/17 Metoprolol Tartrate 25 mg PO BID #60 tab 08/06/17 HYDROcodone/APAP 5-325MG [[place] 1 tab PO Q6HR PRN 3 Days #6 tab 08/20/17 5-325] Allergies Allergy/AdvReac Type Severity Reaction Status Date / Time venom-honey bee Allergy Anaphylaxis Verified 08/25/17 16:32 [bee venom (honey bee)] Review of Systems ROS Other: All systems not noted in ROS Statement are negative. <Kenneth Lobato - Last Filed: 08/25/17 16:11> ROS Other: All systems not noted in ROS Statement are negative. <Monse Healy - Last Filed: 08/25/17 22:15> ROS Statement: Those systems with pertinent positive or pertinent negative responses have been documented in the HPI. 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 rt groin swelling redness,and hardness to area-to see 08/20/17, recent passing out History of Any Multi-Drug Resistant Organisms: None Reported Past Surgical History: Adenoidectomy, Hernia Repair, Joint Replacement, Orthopedic Surgery, Tonsillectomy Additional Past Surgical History / Comment(s): R kidney donor, kiesha hip replacement, L hand trigger finger sx, uvuloplasty, left carotid stent, bilateral inguinal hernia repair, deviated septum repair, colonoscopy, R cataract removal with lens-now has membrane problem and plugged R tear duct. Pain procedures Past Anesthesia/Blood Transfusion Reactions: No Reported Reaction Past Psychological History: No Psychological Hx Reported Smoking Status: Never smoker Past Alcohol Use History: Daily Past Drug Use History: None Reported - Past Family History Father Family Medical History: CVA/TIA Additional Family Medical History / Comment(s): Father at 80 from stroke Mother Family Medical History: Renal Disease Additional Family Medical History / Comment(s): Mother at age 55 from polycystic kidney disease. Brother(s) Additional Family Medical History / Comment(s): Patient has 1 brother with multiple medical problems including diabetes. Sister(s) Family Medical History: Renal Disease Additional Family Medical History / Comment(s): Patient has one sister that at age 60 from kidney failure due to polycystic kidney disease. Daughter(s) Family Medical History: No Reported History Additional Family Medical History / Comment(s): Patient has one daughter with no major medical problems. Son(s) Additional Family Medical History / Comment(s): Patient has 5 sons. 2 at premature . One while skiing from a myocardial infarction at age 32. One son is alive with no major medical problems. <Kenneth Lobato - Last Filed: 08/25/17 16:11> General Exam Limitations: no limitations General appearance: alert, in no apparent distress Head exam: Present: atraumatic, normocephalic, normal inspection Neck exam: Present: normal inspection, full ROM. Absent: tenderness, meningismus, lymphadenopathy Respiratory exam: Present: normal lung sounds bilaterally. Absent: respiratory distress, wheezes, rales, rhonchi, stridor Cardiovascular Exam: Present: regular rate, normal rhythm, normal heart sounds. Absent: systolic murmur, diastolic murmur, rubs, gallop, clicks GI/Abdominal exam: Present: soft, tenderness (Moderate amount of diffuse lower abdominal tenderness), normal bowel sounds. Absent: distended, guarding, rebound, rigid exam: Absent: normal inspection (Mild swelling left-sided, mild tenderness to left inguinal region) Back exam: Absent: CVA tenderness (R), CVA tenderness (L) Skin exam: Present: warm, dry, intact, normal color. Absent: rash <Kenneth Lobato - Last Filed: 08/25/17 16:11> Vital Signs 08/25/17 08/25/17 08/25/17 09:42 11:09 13:07 Temperature 97.7 F Pulse Rate 75 80 69 Respiratory 17 17 17 Rate Blood Pressure 164/75 148/77 171/99 O2 Sat by Pulse 97 96 96 Oximetry 08/25/17 08/25/17 08/25/17 14:47 16:30 17:32 Temperature 98.7 F Pulse Rate 93 88 68 Respiratory 12 17 18 Rate Blood Pressure 158/74 132/65 171/77 O2 Sat by Pulse 96 96 97 Oximetry Medical Decision Making - Lab Data Result diagrams: 08/25/17 10:50 08/25/17 12:00 <Kenneth Lobato - Last Filed: 08/25/17 16:11> - Lab Data Result diagrams: 08/25/17 10:50 08/25/17 12:00 <Monse Healy - Last Filed: 08/25/17 22:15> - Medical Decision Making Patient with recent diagnosis of orchitis, on oral antibiotics. Developed diarrhea and now is experiencing abdominal pain. Labs and computed tomography scan were unremarkable however patient continues to have abdominal discomfort. Considering patient's multiple comorbidities and advanced age decision was made to admit the patient for further evaluation. (Monse Healy) - Lab Data Lab Results 08/25/17 08/25/17 08/25/17 Range/Units 10:50 10:50 10:50 WBC 9.8 (3.8-10.6) k/uL RBC 3.06 L (4.30-5.90) m/uL Hgb 11.8 L (13.0-17.5) gm/dL Hct 37.0 L (39.0-53.0) % MCV 120.7 H (80.0-100.0) fL MCH 38.4 H (25.0-35.0) pg MCHC 31.8 (31.0-37.0) g/dL RDW 17.8 H (11.5-15.5) % Plt Count 1186 H* (150-450) k/uL Neutrophils % Not Reportable Neutrophils % (Manual) 85 % Band Neutrophils % 1 % Lymphocytes % Not Reportable Lymphocytes % (Manual) 3 % Monocytes % Not Reportable Monocytes % (Manual) 6 % Eosinophils % Not Reportable Eosinophils % (Manual) 1 % Basophils % Not Reportable Metamyelocytes % 4 % Myelocytes % 1 % Neutrophils # Not Reportable Neutrophils # (Manual) 8.40 H (1.3-7.7) k/uL Lymphocytes # Not Reportable Lymphocytes # (Manual) 0.29 L (1.0-4.8) k/uL Monocytes # Not Reportable Monocytes # (Manual) 0.59 (0-1.0) k/uL Eosinophils # Not Reportable Eosinophils # (Manual) 0.10 (0-0.7) k/uL Basophils # Not Reportable Metamyelocytes # (Man) 0.39 H (0) k/uL Myelocytes # (Manual) 0.10 H (0) k/uL Nucleated RBCs 0 (0-0) /100 WBC Manual Slide Review Performed Hypersegmented Neuts Present Polychromasia Present Hypochromasia Slight Poikilocytosis Slight Anisocytosis Slight Macrocytosis Marked Sodium 136 L (137-145) mmol/L Potassium 6.2 H* (3.5-5.1) mmol/L Chloride 106 (98-107) mmol/L Carbon Dioxide 23 (22-30) mmol/L Anion Gap 7 mmol/L BUN 37 H (9-20) mg/dL Creatinine 1.40 H (0.66-1.25) mg/dL Est GFR (CKD-EPI)AfAm 54 (>60 ml/min/1.73 sqM) Est GFR (CKD-EPI)NonAf 47 (>60 ml/min/1.73 sqM) Glucose 123 H (74-99) mg/dL Plasma Lactic Acid Ganesh 1.7 (0.7-2.0) mmol/L Calcium 9.5 (8.4-10.2) mg/dL Total Bilirubin 0.5 (0.2-1.3) mg/dL AST 26 (17-59) U/L ALT 24 (21-72) U/L Alkaline Phosphatase 49 (38-126) U/L Total Protein 5.8 L (6.3-8.2) g/dL Albumin 3.5 (3.5-5.0) g/dL Amylase 56 (30-110) U/L Lipase 77 (23-300) U/L Urine Color Urine Appearance (Clear) Urine pH (5.0-8.0) Ur Specific [place] (1.001-1.035) Urine Protein (Negative) Urine Glucose (UA) (Negative) Urine Ketones (Negative) Urine Blood (Negative) Urine Nitrite (Negative) Urine Bilirubin (Negative) Urine Urobilinogen (<2.0) mg/dL Ur Leukocyte Esterase (Negative) 08/25/17 08/25/17 Range/Units 10:50 12:00 WBC (3.8-10.6) k/uL RBC (4.30-5.90) m/uL Hgb (13.0-17.5) gm/dL Hct (39.0-53.0) % MCV (80.0-100.0) fL MCH (25.0-35.0) pg MCHC (31.0-37.0) g/dL RDW (11.5-15.5) % Plt Count (150-450) k/uL Neutrophils % Neutrophils % (Manual) % Band Neutrophils % % Lymphocytes % Lymphocytes % (Manual) % Monocytes % Monocytes % (Manual) % Eosinophils % Eosinophils % (Manual) % Basophils % Metamyelocytes % % Myelocytes % % Neutrophils # Neutrophils # (Manual) (1.3-7.7) k/uL Lymphocytes # Lymphocytes # (Manual) (1.0-4.8) k/uL Monocytes # Monocytes # (Manual) (0-1.0) k/uL Eosinophils # Eosinophils # (Manual) (0-0.7) k/uL Basophils # Metamyelocytes # (Man) (0) k/uL Myelocytes # (Manual) (0) k/uL Nucleated RBCs (0-0) /100 WBC Manual Slide Review Hypersegmented Neuts Polychromasia Hypochromasia Poikilocytosis Anisocytosis Macrocytosis Sodium (137-145) mmol/L Potassium 5.5 H (3.5-5.1) mmol/L Chloride (98-107) mmol/L Carbon Dioxide (22-30) mmol/L Anion Gap mmol/L BUN (9-20) mg/dL Creatinine (0.66-1.25) mg/dL Est GFR (CKD-EPI)AfAm (>60 ml/min/1.73 sqM) Est GFR (CKD-EPI)NonAf (>60 ml/min/1.73 sqM) Glucose (74-99) mg/dL Plasma Lactic Acid Ganesh (0.7-2.0) mmol/L Calcium (8.4-10.2) mg/dL Total Bilirubin (0.2-1.3) mg/dL AST (17-59) U/L ALT (21-72) U/L Alkaline Phosphatase (38-126) U/L Total Protein (6.3-8.2) g/dL Albumin (3.5-5.0) g/dL Amylase (30-110) U/L Lipase (23-300) U/L Urine Color Light Yellow Urine Appearance Clear (Clear) Urine pH 5.0 (5.0-8.0) Ur Specific [place] 1.006 (1.001-1.035) Urine Protein Negative (Negative) Urine Glucose (UA) Negative (Negative) Urine Ketones Negative (Negative) Urine Blood Negative (Negative) Urine Nitrite Negative (Negative) Urine Bilirubin Negative (Negative) Urine Urobilinogen <2.0 (<2.0) mg/dL Ur Leukocyte Esterase Negative (Negative) Disposition <Kenneth Lobato M - Last Filed: 08/25/17 16:11> <Monse Healy - Last Filed: 08/25/17 22:15> Clinical Impression: Intractable abdominal pain, Thrombocytosis, Chronic renal failure, Nausea and vomiting Disposition: ADMITTED IP TO THIS [facility] Condition: Stable
[2017-08-25 11:14] LABS: Anisocytosis Slight; Appearance,Urine Clear (Clear); Bilirubin,Urine Negative (Negative); Blood,Urine Negative (Negative); Color,Urine Light Yellow; Glucose,Urine (UA) Negative (Negative); HGB 11.8 gm/dL (13.0-17.5); Hypochromasia Slight; Ketones,Urine Negative (Negative); Leukocyte Esterase,Urine Negative (Negative); MCH 38.4 pg (25.0-35.0); MCHC 31.8 g/dL (31.0-37.0); MCV 120.7 fL (80.0-100.0); Macrocytosis Marked; Mean Platelet Volume 7.6; Nitrite,Urine Negative (Negative); Poikilocytosis Slight; Protein,Urine Negative (Negative); RBC 3.06 m/uL (4.30-5.90); RDW 17.8 % (11.5-15.5); Specific Gravity,Urine 1.006 (1.001-1.035); Urobilinogen,Urine <2.0 mg/dL (<2.0); WBC 9.8 k/uL (3.8-10.6)
[2017-08-25 11:15] LABS: Platelet Count 1186 k/uL (150-450)
[2017-08-25 11:23] LABS: Albumin 3.5 g/dL (3.5-5.0); Calcium 9.5 mg/dL (8.4-10.2); Total Bilirubin 0.5 mg/dL (0.2-1.3); Total Protein 5.8 g/dL (6.3-8.2)
[2017-08-25 11:24] LABS: Potassium 6.2 mmol/L (3.5-5.1)
[2017-08-25 11:40] LABS: Hypersegmented Neutrophils Present; Polychromasia Present
[2017-08-25 11:44] LABS: Band Neutrophils % 1 %; Lymphocytes # (M) 0.29 k/uL (1.0-4.8); Metamyelocytes # (M) 0.39 k/uL (0); Metamyelocytes % 4 %; Monocytes # (M) 0.59 k/uL (0-1.0); Myelocytes % 1 %; Neutrophils % (M) 85 %; Nucleated Red Blood Cells 0 /100 WBC (0-0); Total Cells Counted 200
--- NOTE | 2017-08-25 11:58 | CT ---
EXAMINATION TYPE: CT abdomen pelvis wo con DATE OF EXAM: 08/25/2017 COMPARISON: Previous study dated 08/20/2017. HISTORY: Abdominal pain CT DLP: 1135 mGycm Automated exposure control for dose reduction was used. FINDINGS: There is mild dependent atelectasis in the dependent portions of the lungs. There is a smal l right pleural effusion and a smaller left pleural effusion. This represents an interval change. The re is extensive vascular calcification including the coronary arteries. There is no pericardial fluid . The heart is not enlarged. There is a small hiatal hernia. Within the abdomen, the liver is unremarkable. The gallbladder is contracted. The spleen is enlarged measuring 15.7 cm. Both adrenal glands are normal. The right kidney is not visualized. Right kidney is hypertrophy. There is no evidence of hydronephros is or nephrolithiasis. The pancreas is unremarkable. There is no significant iliac, internal mammary or inguinal adenopathy. There is significant streak artifact within the pelvis from bilateral hip prostheses. The bladder is not well assessed distally. Visualized portions appear normal. There is diverticulosis involving the left side of the colon. I do not see radiographic evidence of d iverticulitis. 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 There is a surgical clip at the level of the cecum. I suspect there is been a previous appendectomy. Small bowel loops are normal. There is no free fluid and no free air. There is degenerative disc disease, facet arthropathy and hypertrophic spondylosis within the spine. No bony destructive lesion is seen. IMPRESSION: 1. SMALL, BILATERAL PLEURAL EFFUSIONS. 2. SMALL HIATAL HERNIA. 3. SPLENOMEGALY. 4. STATUS POST RIGHT NEPHRECTOMY. 5. UNCOMPLICATED DIVERTICULOSIS OF THE LEFT SIDE OF THE COLON. 6. DEGENERATIVE CHANGES WITHIN THE SPINE.
[2017-08-25] MEDS ORDERED: MORPHINE SULFATE 2 MG/ML SYRINGE IVP ONE (12:46)
[2017-08-25] MEDS ORDERED: HYDROmorphone 0.5 MG/0.5 ML SYRINGE IVP STA (13:54)
[2017-08-25] MEDS ORDERED: ACETAMINOPHEN TAB 325 MG TAB PO PRN (16:12)
[2017-08-25] MEDS ORDERED: NALOXONE 0.4 MG/ML 1 ML VIAL IV PRN (16:12)
[2017-08-25] MEDS: SODIUM CHLORIDE 0.9% 1,000 ML IV SCH (16:34)
[2017-08-25 18:42] VITALS: BMI 28.4
[2017-08-25] MEDS: HYDROmorphone 0.5 MG/0.5 ML SYRINGE IVP PRN (18:52)
[2017-08-25] MEDS: VANCOMYCIN ORAL SOLUTION 250 MG/5 ML BOTTLE PO SCH ×2 (18:52→22:45)
[2017-08-25] MEDS: CHERRY FLAVOR 60 ML BOTTLE PO SCH ×2 (18:53→22:45)
--- NOTE | 2017-08-25 19:43 | P.GSCN ---
History of Present Illness Consult date: 08/25/17 Reason for Consult: Abdominal pain History of present illness: The patient's a 81-year-old man who presented with increasing abdominal pain in the lower abdomen, more on the left. He was seen in the emergency department earlier in the week with diagnosis of orchitis any urinary tract infection. He was on antibiotics. That pain had been getting better. He's had some nausea and vomiting. He is also had loose stools. No blood in the stools or dark tarry stools. He had an EGD and colonoscopy in July 2016 with findings of a small duodenal ulcer and diverticulosis. 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 rt groin swelling redness,and hardness to area- to see 08/20/17, recent passing out History of Any Multi-Drug Resistant Organisms: None Reported Past Surgical History: Adenoidectomy, Hernia Repair, Joint Replacement, Orthopedic Surgery, Tonsillectomy Additional Past Surgical History / Comment(s): R kidney donor, kiesha hip replacement, L hand trigger finger sx, uvuloplasty, left carotid stent, bilateral inguinal hernia repair, deviated septum repair, colonoscopy, R cataract removal with lens-now has membrane problem and plugged R tear duct. Pain procedures Past Anesthesia/Blood Transfusion Reactions: No Reported Reaction Past Psychological History: No Psychological Hx Reported Additional Psychological History / Comment(s): Pt resides with his spouse. He is independent. He works daily. Smoking Status: Never smoker Past Alcohol Use History: Daily Additional Past Alcohol Use History / Comment(s): Pt drinks 1 [place] drinks per day. Past Drug Use History: None Reported - Past Family History Father Family Medical History: CVA/TIA Additional Family Medical History / Comment(s): Father at 80 from stroke Mother Family Medical History: Renal Disease Additional Family Medical History / Comment(s): Mother at age 55 from polycystic kidney disease. Brother(s) Additional Family Medical History / Comment(s): Patient has 1 brother with multiple medical problems including diabetes. Sister(s) Family Medical History: Renal Disease Additional Family Medical History / Comment(s): Patient has one sister that at age 60 from kidney failure due to polycystic kidney disease. Daughter(s) Family Medical History: No Reported History Additional Family Medical History / Comment(s): Patient has one daughter with no major medical problems. Son(s) Additional Family Medical History / Comment(s): Patient has 5 sons. 2 at premature . One while skiing from a myocardial infarction at age 32. One son is alive with no major medical problems. Medications and Allergies Home Medications Medication Instructions Recorded Confirmed Type Allopurinol [Zyloprim] 300 mg PO DAILY 09/01/13 08/25/17 History Hydroxyurea [Hydrea] 500 mg PO TID 09/01/13 08/25/17 History hydrALAZINE HCL [Apresoline] 25 mg PO BID 09/01/13 08/25/17 History Aspirin 325 mg PO DAILY 08/02/16 08/25/17 History EPINEPHrine (Auto Inject) [Epipen] 0.3 mg IM ONCE PRN 01/06/17 08/25/17 History Gabapentin [Neurontin] 300 mg PO BID 06/13/17 08/25/17 History Cholecalciferol (Vitamin D3) 2,000 unit PO HS 08/04/17 08/25/17 History [Vitamin D3] Pantoprazole Sodium [Protonix] 40 mg PO AC-BRKFST 08/04/17 08/25/17 History Acetaminophen Tab [Tylenol] 650 mg PO Q6HR PRN tab 08/06/17 08/25/17 Rx Metoprolol Tartrate 25 mg PO BID #60 tab 08/06/17 08/25/17 Rx Betamethasone Dipropionate 1 applic TOPICAL DAILY 08/20/17 08/25/17 History [Diprolene AF 0.05% Cream] HYDROcodone/APAP 5-325MG [[place] 1 tab PO Q6HR PRN 3 Days #6 tab 08/20/17 Rx 5-325] Levofloxacin [Levaquin] 500 mg PO DAILY 08/25/17 08/25/17 History methylPREDNISolone [Medrol Dose See Taper PO DIRECTED 08/25/17 08/25/17 History Pack] Allergies Allergy/AdvReac Type Severity Reaction Status Date / Time venom-honey bee Allergy Anaphylaxis Verified 08/25/17 16:32 [bee venom (honey bee)] Surgical - Exam Osteopathic Statement: *. No significant issues noted on an osteopathic structural exam other than those noted in the History and Physical/Consult. Vital Signs Temp Pulse Resp BP Pulse Ox 97.7 F 75 17 164/75 97 08/25/17 09:42 08/25/17 09:42 08/25/17 09:42 08/25/17 09:42 08/25/17 09:42 - General well developed, well nourished, no distress - Eyes normal ocular movement - ENT normal mucosa - Neck trachea midline, no lymphadectomy - Respiratory normal expansion, normal respiratory effort, clear to auscultation - Cardiovascular Rhythm: regular - Abdomen Abdomen: soft, tender (Minimal suprapubic tenderness without guarding or rebound ), bowel sounds Hernia: no inguinal (Scar in the left groin from previous hernia surgery) Results - Labs 08/25/17 10:50 08/25/17 12:00 Abnormal Lab Results - Last 24 Hours (Table) 08/25/17 08/25/17 08/25/17 Range/Units 10:50 10:50 12:00 RBC 3.06 L (4.30-5.90) m/uL Hgb 11.8 L (13.0-17.5) gm/dL Hct 37.0 L (39.0-53.0) % MCV 120.7 H (80.0-100.0) fL MCH 38.4 H (25.0-35.0) pg RDW 17.8 H (11.5-15.5) % Plt Count 1186 H* (150-450) k/uL Neutrophils # (Manual) 8.40 H (1.3-7.7) k/uL Lymphocytes # (Manual) 0.29 L (1.0-4.8) k/uL Metamyelocytes # (Man) 0.39 H (0) k/uL Myelocytes # (Manual) 0.10 H (0) k/uL Sodium 136 L (137-145) mmol/L Potassium 6.2 H* 5.5 H (3.5-5.1) mmol/L BUN 37 H (9-20) mg/dL Creatinine 1.40 H (0.66-1.25) mg/dL Glucose 123 H (74-99) mg/dL Total Protein 5.8 L (6.3-8.2) g/dL Microbiology - Last 24 Hours (Table) 08/25/17 10:50 Blood Culture Gram Stain - Preliminary Blood 08/25/17 10:50 Blood Culture - Final Blood Diabetes panel 08/25/17 08/25/17 Range/Units 10:50 12:00 Sodium 136 L (137-145) mmol/L Potassium 6.2 H* 5.5 H (3.5-5.1) mmol/L Chloride 106 (98-107) mmol/L Carbon Dioxide 23 (22-30) mmol/L BUN 37 H (9-20) mg/dL Creatinine 1.40 H (0.66-1.25) mg/dL Glucose 123 H (74-99) mg/dL Calcium 9.5 (8.4-10.2) mg/dL AST 26 (17-59) U/L ALT 24 (21-72) U/L Alkaline Phosphatase 49 (38-126) U/L Total Protein 5.8 L (6.3-8.2) g/dL Albumin 3.5 (3.5-5.0) g/dL Calcium panel 08/25/17 Range/Units 10:50 Calcium 9.5 (8.4-10.2) mg/dL Albumin 3.5 (3.5-5.0) g/dL Pituitary panel 08/25/17 08/25/17 Range/Units 10:50 12:00 Sodium 136 L (137-145) mmol/L Potassium 6.2 H* 5.5 H (3.5-5.1) mmol/L Chloride 106 (98-107) mmol/L Carbon Dioxide 23 (22-30) mmol/L BUN 37 H (9-20) mg/dL Creatinine 1.40 H (0.66-1.25) mg/dL Glucose 123 H (74-99) mg/dL Calcium 9.5 (8.4-10.2) mg/dL Adrenal panel 08/25/17 08/25/17 Range/Units 10:50 12:00 Sodium 136 L (137-145) mmol/L Potassium 6.2 H* 5.5 H (3.5-5.1) mmol/L Chloride 106 (98-107) mmol/L Carbon Dioxide 23 (22-30) mmol/L BUN 37 H (9-20) mg/dL Creatinine 1.40 H (0.66-1.25) mg/dL Glucose 123 H (74-99) mg/dL Calcium 9.5 (8.4-10.2) mg/dL Total Bilirubin 0.5 (0.2-1.3) mg/dL AST 26 (17-59) U/L ALT 24 (21-72) U/L Alkaline Phosphatase 49 (38-126) U/L Total Protein 5.8 L (6.3-8.2) g/dL Albumin 3.5 (3.5-5.0) g/dL - Imaging CT scan - abdomen: report reviewed Assessment and Plan (1) Abdominal pain Current Visit: Yes Status: Acute Code(s): R10.9 - UNSPECIFIED ABDOMINAL PAIN SNOMED Code(s): 76201500 (2) History of syncope Current Visit: Yes Status: Acute Code(s): Z87.898 - PERSONAL HISTORY OF OTHER SPECIFIED CONDITIONS SNOMED Code(s): 183892607106355 (3) Chronic renal failure Current Visit: Yes Status: Acute Code(s): N18.9 - CHRONIC KIDNEY DISEASE, UNSPECIFIED SNOMED Code(s): 37738315 (4) Nausea and vomiting Current Visit: Yes Status: Acute Code(s): R11.2 - NAUSEA WITH VOMITING, UNSPECIFIED SNOMED Code(s): 21427789 (5) Thrombocytosis Current Visit: Yes Status: Acute Code(s): D47.3 - ESSENTIAL (HEMORRHAGIC) THROMBOCYTHEMIA SNOMED Code(s): 9609728 (6) Orchitis Current Visit: No Status: Acute Code(s): N45.2 - ORCHITIS SNOMED Code(s): 419328140 (7) Splenomegaly Current Visit: Yes Status: Acute Code(s): R16.1 - SPLENOMEGALY, NOT ELSEWHERE CLASSIFIED SNOMED Code(s): 48342314 Plan: Currently the patient has a nonsurgical abdomen. Recommend bowel rest. Serial exams. IV antibiotics for the previous orchitis. His thrombocytosis is significantly more elevated today. This could be from dehydration. Consider evaluation by hematology. Further recommendations to follow.
[2017-08-25] MEDS: GABAPENTIN 300 MG CAP PO SCH (22:43)
[2017-08-25] MEDS: hydrALAZINE HCL 25 MG TAB PO SCH (22:44)
[2017-08-25] MEDS: METOPROLOL TARTRATE 25 MG TAB PO SCH (22:45)
[2017-08-25] MEDS: HYDROXYUREA 500 MG CAP PO SCH (22:45)
[2017-08-26] MEDS: HYDROmorphone 0.5 MG/0.5 ML SYRINGE IVP PRN ×2 (01:15→08:42)
[2017-08-26] MEDS: CHERRY FLAVOR 60 ML BOTTLE PO SCH (06:02)
[2017-08-26] MEDS: VANCOMYCIN ORAL SOLUTION 250 MG/5 ML BOTTLE PO SCH (06:02)
[2017-08-26] MEDS: SODIUM CHLORIDE 0.9% 1,000 ML IV SCH ×2 (06:03→21:20)
[2017-08-26] MEDS: hydrALAZINE HCL 25 MG TAB PO SCH ×2 (08:42→20:55)
[2017-08-26] MEDS: HYDROXYUREA 500 MG CAP PO SCH ×3 (08:42→21:21)
[2017-08-26] MEDS: METOPROLOL TARTRATE 25 MG TAB PO SCH ×2 (08:42→20:54)
[2017-08-26] MEDS: GABAPENTIN 300 MG CAP PO SCH ×2 (08:42→20:53)
[2017-08-26] MEDS ORDERED: LEVOFLOXACIN 500MG-D5W PMX 500 MG in DEXTROSE/WATER 1 100ML.BAG IVPB SCH (10:00)
--- NOTE | 2017-08-26 10:27 | P.HPIM ---
History of Present Illness H&P Date: 08/26/17 Chief Complaint: Severe abdominal pain, diverticulitis, thrombocytosis, leukopenia 81-year-old male one of Dr. Sandra's patient with past medical history of CVA, hypertension, hyperlipidemia, obstructive sleep apnea, with previous history of GI bleed was known to have history of thrombocytosis and history of mild polycythemia has been seen hematology regular basis and being on hydroxyurea for it. Also patient known to have history of atherosclerotic heart disease seen a senior patrol agent down in the city. Patient was getting ready to go to a family picnic when all of a sudden developed to have severe intractable lower back pain mostly in the mid abdominal area and in the left lower quadrant radiating toward the middle and the right side symptoms were significantly bad ended up having nausea with no vomiting no bloody stool or black stool. Patient ended up coming to the emergency department at [facility] CT showed significant diverticulitis. Colonoscopy from 2017 showed only diverticulitis with no major other abnormality. With his current symptom patient was started on antibiotics along with GI prophylaxis and consult general surgery was seen and evaluated by Dr. Millan who felt to do medical management for now watch his symptoms closely. Surprisingly his platelet count were very high ration apparently seen casualty claims supervisor the been treated for thrombocytosis. Review of Systems CONSTITUTIONAL: Well-developed no acute respiratory distress. EYES: No icterus sclerae, no conjunctivitis. EARS, NOSE, MOUTH, THROAT, and FACE: No sore throat, lymphadenopathy, carotid bruits or deformity. RESPIRATORY: No SOB cough or wheezes. CARDIOVASCULAR: No CP, Palpitation, PND, Orthopnea, or angina. GASTROINTESTINAL: Severe abdominal pain with nausea mild change in bowel habit with no acute bleed.. GENITOURINARY: Negative for Hematuria or UTI, no kidney stones. INTEGUMENT/BREAST: Negative for any muscular injury with mild osteoarthritis.. HEMATOLOGIC/LYMPHATIC: Negative for bleed or purpura. MUSCULOSKELTAL: Negative for Myalgia or arthralgia. NEURLOGICAL: Mild memory loss with previous history of stroke... BEHAVIORAL/PSYCH: Negative. ENDOCRINE: Negative. 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 rt groin swelling redness,and hardness to area- to see 08/20/17, recent passing out History of Any Multi-Drug Resistant Organisms: None Reported Past Surgical History: Adenoidectomy, Hernia Repair, Joint Replacement, Orthopedic Surgery, Tonsillectomy Additional Past Surgical History / Comment(s): R kidney donor, kiesha hip replacement, L hand trigger finger sx, uvuloplasty, left carotid stent, bilateral inguinal hernia repair, deviated septum repair, colonoscopy, R cataract removal with lens-now has membrane problem and plugged R tear duct. Pain procedures Past Anesthesia/Blood Transfusion Reactions: No Reported Reaction Past Psychological History: No Psychological Hx Reported Additional Psychological History / Comment(s): Pt resides with his spouse. He is independent. He works daily. Smoking Status: Never smoker Past Alcohol Use History: Daily Additional Past Alcohol Use History / Comment(s): Pt drinks 1 [place] drinks per day. Past Drug Use History: None Reported - Past Family History Father Family Medical History: CVA/TIA Additional Family Medical History / Comment(s): Father at 80 from stroke Mother Family Medical History: Renal Disease Additional Family Medical History / Comment(s): Mother at age 55 from polycystic kidney disease. Brother(s) Additional Family Medical History / Comment(s): Patient has 1 brother with multiple medical problems including diabetes. Sister(s) Family Medical History: Renal Disease Additional Family Medical History / Comment(s): Patient has one sister that at age 60 from kidney failure due to polycystic kidney disease. Daughter(s) Family Medical History: No Reported History Additional Family Medical History / Comment(s): Patient has one daughter with no major medical problems. Son(s) Additional Family Medical History / Comment(s): Patient has 5 sons. 2 at premature . One while skiing from a myocardial infarction at age 32. One son is alive with no major medical problems. Medications and Allergies Home Medications Medication Instructions Recorded Confirmed Type Allopurinol [Zyloprim] 300 mg PO DAILY 09/01/13 08/25/17 History Hydroxyurea [Hydrea] 500 mg PO TID 09/01/13 08/25/17 History hydrALAZINE HCL [Apresoline] 25 mg PO BID 09/01/13 08/25/17 History Aspirin 325 mg PO DAILY 08/02/16 08/25/17 History EPINEPHrine (Auto Inject) [Epipen] 0.3 mg IM ONCE PRN 01/06/17 08/25/17 History Gabapentin [Neurontin] 300 mg PO BID 06/13/17 08/25/17 History Cholecalciferol (Vitamin D3) 2,000 unit PO HS 08/04/17 08/25/17 History [Vitamin D3] Pantoprazole Sodium [Protonix] 40 mg PO AC-BRKFST 08/04/17 08/25/17 History Acetaminophen Tab [Tylenol] 650 mg PO Q6HR PRN tab 08/06/17 08/25/17 Rx Metoprolol Tartrate 25 mg PO BID #60 tab 08/06/17 08/25/17 Rx Betamethasone Dipropionate 1 applic TOPICAL DAILY 08/20/17 08/25/17 History [Diprolene AF 0.05% Cream] HYDROcodone/APAP 5-325MG [[place] 1 tab PO Q6HR PRN 3 Days #6 tab 08/20/17 Rx 5-325] Levofloxacin [Levaquin] 500 mg PO DAILY 08/25/17 08/25/17 History methylPREDNISolone [Medrol Dose See Taper PO DIRECTED 08/25/17 08/25/17 History Pack] Allergies Allergy/AdvReac Type Severity Reaction Status Date / Time venom-honey bee Allergy Anaphylaxis Verified 08/25/17 16:32 [bee venom (honey bee)] Physical Exam Vitals: Vital Signs Temp Pulse Pulse Resp BP BP Pulse Ox 08/26/17 07:45 98.2 F 80 16 119/58 94 L 08/25/17 23:00 97.4 F L 59 L 14 125/62 95 08/25/17 22:42 84 140/78 08/25/17 17:45 97.4 F L 92 18 149/73 96 07/15/18 17:32 98.7 F 68 18 171/77 97 08/25/17 16:30 88 17 132/65 96 08/25/17 14:47 93 12 158/74 96 08/25/17 13:07 69 17 171/99 96 08/25/17 11:09 80 17 148/77 96 Intake and Output 08/25/17 08/26/17 08/26/17 22:59 06:59 14:59 Output Total 400 Balance -400 Output: Urine 400 Other: # Voids 1 Weight 90 kg General Appearance: Alert, cooperative, no distress, appears stated age. Neck HEENT: Supple, no lymphadenopathy, no thyroid enlargement, no carotid bruits. Lungs: Clear to auscultation without crackles or wheezes no rhonchi, no deformity. Chest Wall: Chest wall normal expansion with deep inspiration no tenderness and no deformity was found on exam, no costochondral pain or discomfort. Heart: Regular rate and rhythm, S1, S2 normal, no murmur, rub or gallop. Back: Symmetric, no curvature, ROM normal, no CVA tenderness. Abdomen: Soft positive bowel sounds slight tenderness in left lower quadrant and mid lower abdominal region area no rebound or rigidity no masses. Extremities: Extremities normal, atraumatic, no cyanosis or edema. Pulses: 2+ and symmetric. Skin: Skin color, texture, tugor normal, no rashes or lesions. Neurologic: Alert oriented with slight confusion moving all his for eczematous has generalized weakness more lower extremity weakness as well. Results CBC & Chem 7: 08/25/17 10:50 08/25/17 12:00 Labs: Abnormal Lab Results - Last 24 Hours (Table) 08/25/17 08/25/17 08/25/17 Range/Units 10:50 10:50 12:00 RBC 3.06 L (4.30-5.90) m/uL Hgb 11.8 L (13.0-17.5) gm/dL Hct 37.0 L (39.0-53.0) % MCV 120.7 H (80.0-100.0) fL MCH 38.4 H (25.0-35.0) pg RDW 17.8 H (11.5-15.5) % Plt Count 1186 H* (150-450) k/uL Neutrophils # (Manual) 8.40 H (1.3-7.7) k/uL Lymphocytes # (Manual) 0.29 L (1.0-4.8) k/uL Metamyelocytes # (Man) 0.39 H (0) k/uL Myelocytes # (Manual) 0.10 H (0) k/uL Sodium 136 L (137-145) mmol/L Potassium 6.2 H* 5.5 H (3.5-5.1) mmol/L BUN 37 H (9-20) mg/dL Creatinine 1.40 H (0.66-1.25) mg/dL Glucose 123 H (74-99) mg/dL Total Protein 5.8 L (6.3-8.2) g/dL Microbiology - Last 24 Hours (Table) 08/25/17 10:50 Blood Culture Gram Stain - Preliminary Blood 08/25/17 10:50 Blood Culture - Final Blood Thrombosis Risk Factor Assmnt - DVT/VTE Prophylaxis DVT/VTE Prophylaxis: Mechanical Prophylaxis ordered - Choose All That Apply Any of the Below Risk Factors Present?: No Other Risk Factors: Yes Each Risk Factor Represents 3 Points: Age 75 years or older Thrombosis Risk Factor Assessment Total Risk Factor Score: 3 Thrombosis Risk Factor Assessment Level: Moderate Risk Assessment and Plan Plan: 1 severe acute abdominal pain: Most likely acute diverticulitis, patient was started on antibiotic with Levaquin and Flagyl will continue both medication for now watch patient hemodynamic and patient eventually might need to go for colonoscopy but is feeling better. 2 to diverticulitis: Will be on antibiotics and pain management along with fluid resuscitation. 3 thrombocytosis: He seen hematology on regular basis surprisingly his white blood cell his low his hemoglobin and platelets are high and this is more consistent with abnormality of his bone marrow is still on hydroxyurea further management with patient might require bone marrow biopsy and other management. 4 atherosclerotic heart disease: Remain on hydralazine along with metoprolol. 5 gout: Has been on Zyloprim 300 mg a day. 6 hypertension: Remain on metoprolol 25 mg twice a day along with hydralazine 25 mg twice a day. 7 severe GERD/GI prophylaxis: Remain on pantoprazole. 8 chronic neuropathy: Has been on gabapentin 300 mg twice a day. 9 mild memory loss: Mostly secondary to previous history of stroke. 10 DVT prophylaxis: Continue patient on Venodyne boots and knee-high JOSE LUIS hose. CODE STATUS: Full code. Admit patient to inpatient status for more than 2 nights.
[2017-08-26] MEDS: metroNIDAZOLE-NS PMX 500 MG in SALINE 1 100ML.BAG IVPB SCH ×2 (10:51→16:43)
[2017-08-26 11:02] LABS: Calcium 8.5 mg/dL (8.4-10.2); Potassium 5.2 mmol/L (3.5-5.1); Total Bilirubin 0.5 mg/dL (0.2-1.3); Total Protein 5.2 g/dL (6.3-8.2)
[2017-08-26 11:33] LABS: Anisocytosis Slight; Basophils # (A) 0.1 k/uL (0-0.2); Basophils % (A) 1 %; Eosinophils # (A) 0.1 k/uL (0-0.7); Eosinophils % (A) 1 %; HCT 34.6 % (39.0-53.0); HGB 10.8 gm/dL (13.0-17.5); Hypochromasia Slight; Lymphocytes # (A) 0.7 k/uL (1.0-4.8); Lymphocytes % (A) 7 %; MCH 38.2 pg (25.0-35.0); MCHC 31.2 g/dL (31.0-37.0); MCV 122.6 fL (80.0-100.0); Macrocytosis Marked; Mean Platelet Volume 7.9; Monocytes # (A) 0.6 k/uL (0-1.0); Monocytes % (A) 7 %; Neutrophils % (A) 84 %; Poikilocytosis Slight; RBC 2.82 m/uL (4.30-5.90); WBC 9.6 k/uL (3.8-10.6)
[2017-08-26 11:36] LABS: Platelet Count 833 k/uL (150-450)
[2017-08-26 13:57] LABS: Poikilocytosis (M) Present; Polychromasia Present
--- NOTE | 2017-08-26 15:40 | P.PN ---
Subjective Progress Note Date: 08/26/17 Principal diagnosis: Abdominal pain Patient is seen on rounds. He still having some pain in the left groin notes also on the left lower abdomen with some radiation to his left shoulder. No nausea or vomiting. He did have a bowel movement which was loose. He's feeling better than admission. Objective - Vital Signs Vital signs: Vital Signs Temp 98.1 F 08/26/17 13:58 Pulse 92 08/26/17 13:58 Resp 16 08/26/17 13:58 BP 119/77 08/26/17 13:58 Pulse Ox 94 L 08/26/17 13:58 Intake & Output 08/25/17 08/26/17 08/26/17 18:59 06:59 18:59 Intake Total 600 Output Total 400 Balance -400 600 Weight 90 kg Intake: Oral 600 Output: Urine 400 Other: # Voids 1 2 - Constitutional General appearance: Present: cooperative, no acute distress - Respiratory Respiratory: bilateral: CTA - Cardiovascular Rhythm: regular - Gastrointestinal General gastrointestinal: Present: normal bowel sounds, soft, tenderness (Left lower quadrant tenderness without guarding or rebound) - Labs CBC & Chem 7: 08/26/17 10:25 08/26/17 10:25 Labs: Abnormal Lab Results - Last 24 Hours (Table) 08/26/17 08/26/17 Range/Units 10:25 10:25 RBC 2.82 L (4.30-5.90) m/uL Hgb 10.8 L (13.0-17.5) gm/dL Hct 34.6 L (39.0-53.0) % MCV 122.6 H (80.0-100.0) fL MCH 38.2 H (25.0-35.0) pg RDW 18.0 H (11.5-15.5) % Plt Count 833 H* (150-450) k/uL Neutrophils # 8.0 H (1.3-7.7) k/uL Lymphocytes # 0.7 L (1.0-4.8) k/uL Sodium 133 L (137-145) mmol/L Potassium 5.2 H (3.5-5.1) mmol/L BUN 27 H (9-20) mg/dL Glucose 136 H (74-99) mg/dL Total Protein 5.2 L (6.3-8.2) g/dL Albumin 3.0 L (3.5-5.0) g/dL Microbiology - Last 24 Hours (Table) 08/25/17 10:50 Blood Culture - Final Blood 08/25/17 10:50 Blood Culture Gram Stain - Preliminary Blood Assessment and Plan (1) Abdominal pain Current Visit: Yes Status: Acute Code(s): R10.9 - UNSPECIFIED ABDOMINAL PAIN SNOMED Code(s): 18115396 (2) History of syncope Current Visit: Yes Status: Acute Code(s): Z87.898 - PERSONAL HISTORY OF OTHER SPECIFIED CONDITIONS SNOMED Code(s): 738417844043048 (3) Chronic renal failure Current Visit: Yes Status: Acute Code(s): N18.9 - CHRONIC KIDNEY DISEASE, UNSPECIFIED SNOMED Code(s): 41585850 (4) Nausea and vomiting Current Visit: Yes Status: Acute Code(s): R11.2 - NAUSEA WITH VOMITING, UNSPECIFIED SNOMED Code(s): 50159482 (5) Thrombocytosis Current Visit: Yes Status: Acute Code(s): D47.3 - ESSENTIAL (HEMORRHAGIC) THROMBOCYTHEMIA SNOMED Code(s): 1366353 (6) Orchitis Current Visit: No Status: Acute Code(s): N45.2 - ORCHITIS SNOMED Code(s): 988507859 (7) Splenomegaly Current Visit: Yes Status: Acute Code(s): R16.1 - SPLENOMEGALY, NOT ELSEWHERE CLASSIFIED SNOMED Code(s): 91892589 (8) Diarrhea Current Visit: Yes Status: Acute Code(s): R19.7 - DIARRHEA, UNSPECIFIED SNOMED Code(s): 54707973 Plan: Currently nonsurgical. He may have some mild diverticulitis admissions with orchitis. Currently nonsurgical. His thrombocytopenia is improved today.
[2017-08-27] MEDS: metroNIDAZOLE-NS PMX 500 MG in SALINE 1 100ML.BAG IVPB SCH ×2 (00:15→08:17)
[2017-08-27 08:10] VITALS: BP 123/62; RESP 16; TEMP 97.8
[2017-08-27] MEDS: hydrALAZINE HCL 25 MG TAB PO SCH (08:18)
[2017-08-27] MEDS: METOPROLOL TARTRATE 25 MG TAB PO SCH (08:18)
[2017-08-27] MEDS: GABAPENTIN 300 MG CAP PO SCH (08:18)
[2017-08-27] MEDS: HYDROXYUREA 500 MG CAP PO SCH (08:18)
[2017-08-27] MEDS: SODIUM CHLORIDE 0.9% 1,000 ML IV SCH (08:19)
[2017-08-27 08:44] VITALS: PULSE 96
--- NOTE | 2017-08-27 15:03 | P.DS ---
Providers Date of admission: 08/26/17 09:04 Expected date of discharge: 08/27/17 Attending physician: Chiki Reynoso Consults: 08/25/17 16:12 Consult Physician Stat Consulting Provider: Ludy Millan Consult Reason/Comments: Intractable abdominal pain Do you want consulting provider notified?: Yes Primary care physician: Laurita Sandra Hospital Course: 81-year-old male one of Dr. Sandra's patient with past medical history of CVA, hypertension, hyperlipidemia, obstructive sleep apnea, with previous history of GI bleed was known to have history of thrombocytosis and history of mild polycythemia has been seen hematology regular basis and being on hydroxyurea for it. Also patient known to have history of atherosclerotic heart disease seen a stock room manager down in the city. Patient was getting ready to go to a family picnic when all of a sudden developed to have severe intractable lower back pain mostly in the mid abdominal area and in the left lower quadrant radiating toward the middle and the right side symptoms were significantly bad ended up having nausea with no vomiting no bloody stool or black stool. Patient ended up coming to the emergency department at [facility] CT showed significant diverticulitis. Colonoscopy from 2017 showed only diverticulitis with no major other abnormality. With his current symptom patient was started on antibiotics along with GI prophylaxis and consult general surgery was seen and evaluated by Dr. Millan who felt to do medical management for now watch his symptoms closely. Surprisingly his platelet count were very high ration apparently seen power cutting machine operator the been treated for thrombocytosis. 08/27: Patient states that his pain is almost gone. He has been tolerating his diet with no nausea or vomiting. His appetite stenosis is improved to 833 platelet count, white count is normal and hemoglobin 10.8. Troponin was negative on 3 draws. At the time of discharge sodium 133 and potassium 5.2. Patient will be discharged home today in stable condition. Discharge diagnoses: 1 severe acute abdominal pain: Most likely acute diverticulitis 2 diverticulitis 3 thrombocytosis 4 atherosclerotic heart disease 5 gout, stable 6 hypertension 7 severe GERD 8 chronic neuropathy 9 mild memory loss: Mostly secondary to previous history of stroke. Discharge plan: Home Impression and plan of care have been directed as dictated by the signing physician. Alexandra Quiles nurse practitioner acting as scribe for signing physician. Patient Condition at Discharge: Good Plan - Discharge Summary New Discharge Prescriptions: New metroNIDAZOLE [Flagyl] 500 mg PO TID #21 tab Continue hydrALAZINE HCL [Apresoline] 25 mg PO BID Hydroxyurea [Hydrea] 500 mg PO TID Allopurinol [Zyloprim] 300 mg PO DAILY Aspirin 325 mg PO DAILY EPINEPHrine (Auto Inject) [Epipen] 0.3 mg IM ONCE PRN PRN Reason: Anaphylaxis Gabapentin [Neurontin] 300 mg PO BID Pantoprazole Sodium [Protonix] 40 mg PO AC-BRKFST Cholecalciferol (Vitamin D3) [Vitamin D3] 2,000 unit PO HS Acetaminophen Tab [Tylenol] 650 mg PO Q6HR PRN tab PRN Reason: Fever and/ or Mild Pain Metoprolol Tartrate 25 mg PO BID #60 tab Betamethasone Dipropionate [Diprolene AF 0.05% Cream] 1 applic TOPICAL DAILY HYDROcodone/APAP 5-325MG [[place] 5-325] 1 tab PO Q6HR PRN 3 Days #6 tab PRN Reason: Pain Levofloxacin [Levaquin] 500 mg PO DAILY #7 tab Discontinued methylPREDNISolone [Medrol Dose Pack] See Taper PO DIRECTED Discharge Medication List Allopurinol [Zyloprim] 300 mg PO DAILY 09/01/13 [History] Hydroxyurea [Hydrea] 500 mg PO TID 09/01/13 [History] hydrALAZINE HCL [Apresoline] 25 mg PO BID 09/01/13 [History] Aspirin 325 mg PO DAILY 08/02/16 [History] EPINEPHrine (Auto Inject) [Epipen] 0.3 mg IM ONCE PRN 01/06/17 [History] Gabapentin [Neurontin] 300 mg PO BID 06/13/17 [History] Cholecalciferol (Vitamin D3) [Vitamin D3] 2,000 unit PO HS 08/04/17 [History] Pantoprazole Sodium [Protonix] 40 mg PO AC-BRKFST 08/04/17 [History] Acetaminophen Tab [Tylenol] 650 mg PO Q6HR PRN tab 08/06/17 [Rx] Metoprolol Tartrate 25 mg PO BID #60 tab 08/06/17 [Rx] Betamethasone Dipropionate [Diprolene AF 0.05% Cream] 1 applic TOPICAL DAILY 11/28 [History] HYDROcodone/APAP 5-325MG [[place] 5-325] 1 tab PO Q6HR PRN 3 Days #6 tab 08/20/17 [Rx] Levofloxacin [Levaquin] 500 mg PO DAILY #7 tab 08/27/17 [Rx] metroNIDAZOLE [Flagyl] 500 mg PO TID #21 tab 08/27/17 [Rx] Follow up Appointment(s)/Referral(s): Ludy Millan DO [Doctor of Osteopathic Medicine] - 09/03/17 2:00 pm Laurita Sandra MD [Primary Care Provider] - 09/02/17 1:30 pm Patient Instructions/Handouts: Diverticulitis (DC), Diverticulitis Diet (DC), Orchitis (GEN) Activity/Diet/Wound Care/Special Instructions: Diet per handout. Activity as tolerated, fall precautions. Discharge Disposition: HOME SELF-CARE
--- NOTE | 2017-08-30 08:07 | CDI ---
Last Revision, January 2017 Documentation Clarification Form Date: 08/30/17 From: Maryjane Khoi Jaimee Camarena, Direct Marketing Executive Hours-8:30 am & 5 pm Jelly Admit Date: 08/26/2017 9:04:00 AM Patient Name: Hector Esqueda Visit Number: [id number] Discharge Date: 08/27/17 ATTENTION: The Clinical Documentation Specialists (CDI) and [facility] Coding Staff appreciate your assistance in clarifying documentation. Please respond to the clarification below the line at the bottom and electronically sign. The CDI & [facility] Coding staff will review the response and follow-up if needed. Please note: Queries are made part of the Legal Health Record. If you have any questions, please contact the author of this message via ITS. Dr. Ehsan Mendoza Chronic kidney disease is documented in ED note, consult & 08/26 PN. Clinical Indicators: Kidney donor, polycystic kidney disease runs in the family Current BUN: 37, 27 Current CR: 1.40, 1.24 Current GFR: 47, 55 Patients medications include: Apresoline, [place], Hydrea, Metoprolol tartrate IVF In order to capture the severity of condition, please clarify if the condition signifies: CKD ruled out CKD Stage 1 (GFR > 90) CKD Stage 2 (GFR 60-89) CKD Stage 3 (GFR 30-59) CKD Stage 4 (GFR 15-29) CKD Stage 5 (GFR <15) ESRD Other, please specify Unable to determine Please continue to document in your progress notes and discharge summary in order to capture severity of illness and risk of mortality. Include clinical findings that support your diagnosis. MTDD
== END 2017-08-27 13:57 | disposition home or self-care (01) | DRG 392 ==
LOC: EC 09:39 → 4MS4W 16:12 → OBSVTOIN 08-26 09:04
PROVIDERS: ADMIT Internal Medicine; ATTEND Internal Medicine
DX: K57.92 Diverticulitis of intestine, part unspecified, without perforation or abscess without bleeding (principal); G62.9 Polyneuropathy, unspecified; D75.1 Secondary polycythemia; I69.311 Memory deficit following cerebral infarction; R16.1 Splenomegaly, not elsewhere classified; N18.3 Chronic kidney disease, stage 3 (moderate); I12.9 Hypertensive chronic kidney disease with stage 1 through stage 4 chronic kidney disease, or unspecified chronic kidney disease; E78.5 Hyperlipidemia, unspecified; G47.33 Obstructive sleep apnea (adult) (pediatric); D47.3 Essential (hemorrhagic) thrombocythemia; I25.10 Atherosclerotic heart disease of native coronary artery without angina pectoris; M10.9 Gout, unspecified; K21.9 Gastro-esophageal reflux disease without esophagitis; R40.2362 Coma scale, best motor response, obeys commands, at arrival to emergency department; R40.2252 Coma scale, best verbal response, oriented, at arrival to emergency department; R40.2142 Coma scale, eyes open, spontaneous, at arrival to emergency department; G89.29 Other chronic pain; M54.5 Low back pain; M19.91 Primary osteoarthritis, unspecified site; G43.909 Migraine, unspecified, not intractable, without status migrainosus; Z79.82 Long term (current) use of aspirin; Z79.899 Other long term (current) drug therapy; Z79.891 Long term (current) use of opiate analgesic; Z52.4 Kidney donor; Z85.828 Personal history of other malignant neoplasm of skin; Z86.19 Personal history of other infectious and parasitic diseases; Z98.41 Cataract extraction status, right eye; Z96.1 Presence of intraocular lens; Z87.81 Personal history of (healed) traumatic fracture; Z96.643 Presence of artificial hip joint, bilateral; Z87.11 Personal history of peptic ulcer disease; Z95.828 Presence of other vascular implants and grafts; Z91.030 Bee allergy status; Z82.3 Family history of stroke; Z82.71 Family history of polycystic kidney; Z83.3 Family history of diabetes mellitus; Z82.49 Family history of ischemic heart disease and other diseases of the circulatory system
CPT/HCPCS: 36415; 51798; 74176; 80053; 81003; 82150; 83605; 83690; 84132; 84484; 85025; 87040; 93005; 96361; 96374; 96375; 96376; 99285

== ENCOUNTER → 2017-09-16 | Outpatient (CLI) | payer MEDICARE ==
[2017-09-16 12:33] VITALS: BP 101/54; PULSE 64; RESP 16
--- NOTE | 2017-09-17 14:35 | P.PAINPG ---
Subjective Progress Note Date: 09/16/17 This is a 81 years old male with a chronic history of severe neck pain and low back pain, and he reported that he had neck pain and low back pain, diagnosed with cervical spinal stenosis cervical radiculopathy , cervical degenerative disc disease, and lumbar spondylosis In 08/07/2017 we did cervical epidural steroid injection, which helped his neck pain and he was scheduled to have a second cervical epidural steroid injection, but the patient did not follow-up because he has severe abdominal pain and he has to be admitted to [facility], and it showed that he has nonsurgical abdomen Past Medical History Past Medical History: Cancer, CVA/TIA, Eye Disorder, Hyperlipidemia, Hypertension, Osteoarthritis (OA), Sleep Apnea/CPAP/BIPAP Additional Past Medical History / Comment(s): Past lower GI bleed, diverticular dx, thrombocytosis-sees Dr. 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 History of Any Multi-Drug Resistant Organisms: None Reported Past Surgical History: Adenoidectomy, Hernia Repair, Joint Replacement, Orthopedic Surgery, Tonsillectomy Additional Past Surgical History / Comment(s): R kidney donor, kiesha hip replacement, L hand trigger finger sx, uvuloplasty, left carotid stent, bilateral inguinal hernia repair, deviated septum repair, colonoscopy, R cataract removal with lens-now has membrane problem and plugged R tear duct. Past Anesthesia/Blood Transfusion Reactions: No Reported Reaction Past Psychological History: No Psychological Hx Reported Additional Psychological History / Comment(s): Pt resides with his spouse. He is independent. He works daily. Smoking Status: Never smoker Past Alcohol Use History: None Reported Additional Past Alcohol Use History / Comment(s): Pt drinks 2 [place] drinks per day. Last drank yesterday 08/01/16. Past Drug Use History: None Reported Physical Examinations : 1-Constitutional : Cooperative , not in acute distress . 2-HEENT : nech ; supple , no Lymphadenopathy , no Thyromegaly , :eyes , no icterus, no photophobia . ENT : , normal oropharynx , no Thrush 3- Respiratory : Chest clear to auscultations Bilaterally , no wheezing . 4- Cardiovascular : regular rate and rhythem , S1 , S2 , no S3 , no S4. 5- Gastrointestinal: abdomen soft no tenderness , no organomegally . 6- Genitourinary : Defferred . 7-Integumentary : No cellulitis , no ulcers , normal skin turgor , no cyanotic . 8- neurologic : Cranial nerve II to XII intact , no focal neurological deffecit 9-psychatric : alert , oriented X 3 , appropriate affect , intact judgment and insight . 10-Lymphatic : no Lymphadenopathy. 11- musculoskeltal: normal gait Cervical Spine motor stregnth in the deltoid and biceps, normal right side , normal Left side motor stregnth biceps and the wrist extensors normal right side ,normal left side . motor stregnth in the triceps muscle . normal Right side , normal Left side deep tendon reflexes normal at the biceps , normal at Brachioradialis , normal at triceps. positive cervical facet loading test . Decreased ability to abduct the right shoulder, decreased ability to lateral rotation of the right shoulder Lumber spine moter stegnth lower extremities ,thigh and legs 5/5 Right side , 5/5 Left side Results Results: MRI of the cervical spine reviewed Assessment and Plan Plan: Assessment and plan=1-cervical radiculopathy 2-cervical spondylosis , cervical degenerative disc disease 3-lumbar spondylosis. Patient will be scheduled to have 2 nd cervical epidural steroid injections under fluoroscopy guidance, procedure risk and benefits and alternatives discussed with patient agreed to proceed, Patient currently getting the description that for Lindsay and Neurontin, patient denies any side effect of the medication anesthesia continued to get the same prescription from his primary care Objective - Vital Signs Vital signs: Vital Signs Temp Pulse 64 09/16/17 12:27 Resp 16 09/16/17 12:27 BP 101/54 09/16/17 12:27 Pulse Ox 96 09/16/17 12:27 Intake & Output 09/16/17 09/17/17 09/17/17 18:59 06:59 18:59 Weight 90.718 kg PQRS Measure Charge Sheet Measure #130: Documentation of Current Meds in Medical Chart: Patient's medications documented in chart Measure #226: Tobacco Use: Screen & Cessation Intervention: Pt not a tobacco user Measure #111: Pneumonia Vaccination: Pneumococcal vaccine administered or previously received Measure #47: Advance Care Plan: Advance care planning discussed & documented, pt chose/unable to give Measure #412: Opioid Treatment Agreement: No documentation of signed opioid treatment agreement Measure #408: Opioid Therapy Follow-up Evaluation: Patient had NO f/u eval minimum every 3 months during opioid therapy Measure #317: Preventitive Care & Scrn High Bld Press & F/U: Normal blood pressure, f/u not required Measure #128: Body Mass Index (BMI) Screening & Follow-up: BMI documented ABOVE normal parameters - f/u documented Measure #131: Pain Assessment & Follow-up: Pain positive & plan documented, Follow-up scheduled Measure #431: Unhealthy Alcohol Use Preventative Care & Scrn: Patient not identified as an unhealthy alcohol user PQRS Narrative: Smoking Status Never smoker Do You Want the Pneumonia Vaccine Up to Date Vaccine AT THIS TIME? Blood Pressure 101/54 Pain Intensity [Posterior Neck 8 ] Scale Used Numeric (1 - 10) Hx Alcohol Use (MH) Yes: 2 manhattans per night Home Medications: Ambulatory Orders Allopurinol [Zyloprim] 300 mg PO DAILY 09/01/13 Hydroxyurea [Hydrea] 500 mg PO TID 09/01/13 hydrALAZINE HCL [Apresoline] 25 mg PO BID 09/01/13 Aspirin 325 mg PO DAILY 08/02/16 EPINEPHrine (Auto Inject) [Epipen] 0.3 mg IM ONCE PRN 01/06/17 Gabapentin [Neurontin] 300 mg PO BID 06/13/17 Pantoprazole Sodium [Protonix] 40 mg PO AC-BRKFST 08/04/17 Acetaminophen Tab [Tylenol] 650 mg PO Q6HR PRN tab 08/06/17 Metoprolol Tartrate 25 mg PO BID #60 tab 08/06/17 Controlled Substance Measures - Controlled Substance Measures Is patient prescribed a controlled substance at discharge?: No When asked, does pt state using other controlled substances?: No If prescribed controlled substance>3 days was MAPS reviewed?: No If Rx opioid, was Start Talking consent form obtained?: No If opioid is for acute pain is fill amount 7 days or less?: No Was information provided regarding opioid addiction?: No
== END | disposition home or self-care (01) ==
LOC: PNWHC3 12:06
PROVIDERS: ATTEND Specialist
DX: G89.29 Other chronic pain (principal); M48.02 Spinal stenosis, cervical region; M50.10 Cervical disc disorder with radiculopathy, unspecified cervical region; M47.22 Other spondylosis with radiculopathy, cervical region; M47.816 Spondylosis without myelopathy or radiculopathy, lumbar region; R10.9 Unspecified abdominal pain; E78.5 Hyperlipidemia, unspecified; M19.90 Unspecified osteoarthritis, unspecified site; G47.33 Obstructive sleep apnea (adult) (pediatric); M10.9 Gout, unspecified; Z99.89 Dependence on other enabling machines and devices; Z87.19 Personal history of other diseases of the digestive system; Z85.828 Personal history of other malignant neoplasm of skin; Z86.73 Personal history of transient ischemic attack (TIA), and cerebral infarction without residual deficits; Z98.890 Other specified postprocedural states; Z87.312 Personal history of (healed) stress fracture; Z90.89 Acquired absence of other organs; Z96.643 Presence of artificial hip joint, bilateral; Z52.4 Kidney donor; Z79.899 Other long term (current) drug therapy; Z79.82 Long term (current) use of aspirin; Z95.5 Presence of coronary angioplasty implant and graft
CPT/HCPCS: 99211

== ENCOUNTER 2017-09-25 08:50 | Day surgery (SDC) | payer MEDICARE ==
[2017-09-19 15:27] VITALS: BMI 28.7
[~2017-09-25 08:50] MED LIST: LACTATED RINGERS 1,000 ML IV SCH
[2017-09-25 09:14] VITALS: RESP 18; TEMP 98
[2017-09-25] MEDS ORDERED: LACTATED RINGERS 1,000 ML IV ONE (09:14)
[2017-09-25] MEDS ORDERED: LIDOCAINE 1% 20 ML VIAL (10MG/ML) FOR IV START INTRADERMA ONE (09:15)
--- NOTE | 2017-09-25 10:46 | P.PCN ---
Date of Procedure: 09/25/17 Procedure(s) Performed: . PROCEDURE 1. Cervical epidural steroid injection under fluoroscopic guidance, C7-T1 2. Cervical epidurogram. PREOPERATIVE DIAGNOSIS: 1- Cervical Degenerative Disc Diseases 2- Cervical radiculopathy., 3-cervical spondylosis with cervical Facet arthropathy without myelopathy POSTOPERATIVE DIAGNOSIS: : 1- Cervical Degenerative Disc Diseases , 2- Cervical radiculopathy. 3-,cervical spondylosis with cervical Facet arthropathy without myelopathy ANESTHESIA: Local anesthesia with 1% lidocaine and IV sedation with Versed 1 mg and Fentanyl 50 mcg. EBL 0 PROCEDURE INDICATION: The patient with neck pain and radiculitis unresponsive to conservative treatment consents for procedure. PROCEDURE DESCRIPTION / TECHNIQUE: The patient was seen and identified in the preoperative area. Risks, benefits, complications, including but not limited to infections ,bleeding , allergic reactions to the medications ,and not complete pain releife, and alternatives were discussed with the patient, the patient agreed to proceed with the procedure and signed the consent. Patient was taken to the OR and time out was completed. The patient was placed in the prone position on the procedure table. A pillow was placed under the patients chest to increase the cervical interlaminar space. The cervical area was prepped and draped in the usual sterile fashion. Vital signs were closely monitored during the procedure. Conscious sedation was used during the procedure to decrease patients anxiety. Using anterior-posterior fluoroscopy, the C7-T1 interlaminar space was identified and the skin over this site was marked and then infiltrated with 1% lidocaine subcutaneously. Subsequently, a 20-gauge 3-1/2-inch Tuohy epidural needle was inserted and advanced toward the epidural space by means of the `` hanging-drop technique and guided by AP and lateral fluoroscopy. The correct needle position in the epidural space was verified with the injection of 2 mL of the water soluble contrast dye Isovue-200 and observing an excellent epidurogram with the epidural spread of the dye, after negative aspiration for blood and CSF and in the absence of paresthesias. Again after negative aspiration, mixture containing 15 mg Dexamethasone and 2 ml of preservative- free normal saline injected and a washout of epidurogram was seen. Needle was withdrawn intact, skin was cleansed, and bandages were applied. Complications= none. Disposition= patient was placed in supine position and transferred to the recovery room area in stable condition and there was no evidence of upper or lower extremity motor or sensory deficit after the procedure patient was discharged from recovery room after discharge criteria met and home discharge instructions was given by the staff and patient will follow with the pain clinic in 2-4 weeks
[2017-09-25] MEDS ORDERED: IV FLUID CONTINUATION 1,000 ML IV ONE ×2 (10:54)
--- NOTE | 2017-09-25 11:05 | FL ---
EXAMINATION TYPE: FL guided pain mgmt statistic DATE OF EXAM: 09/25/2017 HISTORY: Flouroscopy time 2 seconds of fluoroscopy provided. IMPRESSION: 1. Fluoroscopy time.
[2017-09-25 11:24] VITALS: BP 140/60; PULSE 62
== END 2017-09-25 11:39 | disposition home or self-care (01) ==
LOC: ORPAIN 08:50
PROVIDERS: ATTEND Specialist
DX: M50.10 Cervical disc disorder with radiculopathy, unspecified cervical region (principal); M47.22 Other spondylosis with radiculopathy, cervical region; I10 Essential (primary) hypertension; G47.33 Obstructive sleep apnea (adult) (pediatric); Z91.030 Bee allergy status
CPT/HCPCS: 62321; J2250; J1100; J3010; Q9966; 99152

== ENCOUNTER → 2017-09-26 | Outpatient (CLI) | payer MEDICARE ==
--- NOTE | 2017-09-26 13:01 | US ---
EXAMINATION TYPE: US venous doppler duplex LE DATE OF EXAM: 09/26/2017 12:41 PM COMPARISON: US CLINICAL HISTORY: R22.42,R22.41 SWELLING OF RT AND LT LOWER LIMB x 1 month; on blood thinner for card iac arrhythmia per patient; right popliteal fossa cyst on prior US SIDE PERFORMED: Bilateral TECHNIQUE: The lower extremity deep venous system is examined utilizing real time linear array sonog edward with graded compression, doppler sonography and color-flow sonography. VESSELS IMAGED: Common Femoral Vein Deep Femoral Vein Greater Saphenous Vein * Femoral Vein Popliteal Vein Small Saphenous Vein * Proximal Calf Veins (* superficial vessels) Pulsatile venous signal noted bilaterally suggests CHF. Edema channels are noted at bilateral ankle l evel. Right Leg: Negative for DVT. Right complex popliteal fossa cysts still present = 4.5 x 3.4 x 2.4cm. Left Leg: Negative for DVT. Possible stuck valve noted at left mid Femoral Vein. Grayscale, color doppler, spectral doppler imaging performed of the deep veins of the lower extremiti es. There is normal flow, compressibility, vascular waveforms. IMPRESSION: 1. No sonographic evidence of deep venous arthrosis within either lower extremity. 2. Pulsatile flow within the venous systems can be seen in congestive heart failure. Additionally the re is lower extremity deep tendon edema noted. 3. Mildly complex popliteal fossa Cardoza's cyst on the right measuring up to 4.5 cm.
== END | disposition home or self-care (01) ==
LOC: RADUSWWP 11:17
PROVIDERS: ATTEND Internal Medicine Hematology & Oncology
DX: M71.21 Synovial cyst of popliteal space [Baker], right knee (principal); R22.42 Localized swelling, mass and lump, left lower limb
CPT/HCPCS: 93970

== ENCOUNTER 2017-10-06 12:31 | Inpatient (IN) | payer MEDICARE ==
[2017-10-06] MEDS ORDERED: SODIUM CHLORIDE 0.9% 1,000 ML IV STA (13:10)
[2017-10-06] MEDS ORDERED: SODIUM CHLORIDE 0.9% 500 ML IV STA (13:10)
[2017-10-06] MEDS ORDERED: ONDANSETRON 4 MG/2 ML VIAL IVP STA (13:10)
[2017-10-06] MEDS ORDERED: MORPHINE SULFATE 2 MG/ML SYRINGE IVP STA (13:10)
--- NOTE | 2017-10-06 13:27 | ED ---
Abdominal Pain HPI - General Chief Complaint: Abdominal Pain Stated Complaint: abdominal pain Time Seen by Provider: 10/06/17 13:05 Source: patient Mode of arrival: wheelchair Limitations: no limitations - History of Present Illness Initial Comments: 81 years old male presents with abdominal pain pain is more so affecting his right lower quadrant and suprapubic area and to lesser extent left lower quadrant area him up and started started around midnight.On further questions about the details of his abdominal pain he got very abusive verbally, agressive and almost combative. He has surgical history significant for being a kidney donor history of diverticulitis. - Related Data Home Medications Medication Instructions Recorded Confirmed Allopurinol [Zyloprim] 300 mg PO DAILY 09/01/13 09/19/17 Hydroxyurea [Hydrea] 500 mg PO QID 09/01/13 09/19/17 hydrALAZINE HCL [Apresoline] 25 mg PO BID 09/01/13 09/19/17 Aspirin 325 mg PO DAILY 08/02/16 09/19/17 EPINEPHrine (Auto Inject) [Epipen] 0.3 mg IM ONCE PRN 01/06/17 09/19/17 Gabapentin [Neurontin] 300 mg PO BID 06/13/17 09/19/17 Pantoprazole Sodium [Protonix] 40 mg PO AC-BRKFST 08/04/17 09/19/17 Cholecalciferol (Vitamin D3) 2,000 unit PO DAILY 09/19/17 09/19/17 [Vitamin D3] Previous Rx's Medication Instructions Recorded Acetaminophen Tab [Tylenol] 650 mg PO Q6HR PRN tab 08/06/17 Metoprolol Tartrate 25 mg PO BID #60 tab 08/06/17 Allergies Allergy/AdvReac Type Severity Reaction Status Date / Time venom-honey bee Allergy Anaphylaxis Verified 10/06/17 13:04 [bee venom (honey bee)] Review of Systems ROS Statement: Those systems with pertinent positive or pertinent negative responses have been documented in the HPI. ROS Other: All systems not noted in ROS Statement are negative. 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 rt groin swelling redness,and hardness to area- to see 08/20/17, recent passing out History of Any Multi-Drug Resistant Organisms: None Reported Past Surgical History: Adenoidectomy, Hernia Repair, Joint Replacement, Orthopedic Surgery, Tonsillectomy Additional Past Surgical History / Comment(s): R kidney donor, kiesha hip replacement, L hand trigger finger sx, uvuloplasty, left carotid stent, bilateral inguinal hernia repair, deviated septum repair, colonoscopy, R cataract removal with lens-now has membrane problem and plugged R tear duct. Pain procedures Past Anesthesia/Blood Transfusion Reactions: No Reported Reaction Past Psychological History: No Psychological Hx Reported Smoking Status: Never smoker - Past Family History Father Family Medical History: CVA/TIA Additional Family Medical History / Comment(s): Father at 80 from stroke Mother Family Medical History: No Reported History Additional Family Medical History / Comment(s): Mother at age 55 from polycystic kidney disease. Brother(s) Additional Family Medical History / Comment(s): Patient has 1 brother with multiple medical problems including diabetes. Sister(s) Family Medical History: Renal Disease Additional Family Medical History / Comment(s): Patient has one sister that at age 60 from kidney failure due to polycystic kidney disease. Daughter(s) Family Medical History: No Reported History Additional Family Medical History / Comment(s): Patient has one daughter with no major medical problems. Son(s) Additional Family Medical History / Comment(s): Patient has 5 sons. 2 at premature . One while skiing from a myocardial infarction at age 32. One son is alive with no major medical problems. General Exam - General Exam Comments Initial Comments: General: The patient is awake and alert, in severe distress he is angry , irritable, combative and abusive in response to the questions Skin: Skin is warm and dry and no rashes or lesions are noted. Eye: Pupils are equal, round and reactive to light, extra-ocular movements are intact; there is normal conjunctiva bilaterally. Ears, nose, mouth and throat: There are moist mucous membranes and no oral lesions. Neck: The neck is supple, there is no tenderness , no signs of meningitis Cardiovascular: There is a regular rate and rhythm. No murmur, rub or gallop is appreciated. Respiratory: To auscultation bilateral, crease breath sounds bilateral Gastrointestinal: Very tender in right lower quadrant area, suprapubic area and the left lower quadrant area, and exam was very difficult because of his very aggrressive attitude Back: There is no tenderness to palpation in the midline. There is no obvious deformity. Musculoskeletal: Normal ROM, no tenderness, There is no pedal edema. There is no calf tenderness or swelling. No cords were appreciated. Neurological: CN II-XII intact, Cranial nerves III through XII are intact. There are no obvious motor or sensory deficits. Coordination appears grossly intact. Speech is normal. Psychiatric: Cooperative, appropriate mood & affect, normal judgment. Limitations: no limitations Course Vital Signs 10/06/17 10/06/17 10/06/17 13:00 14:13 15:32 Temperature 97.9 F Pulse Rate 52 L 51 L 89 Respiratory 18 18 18 Rate Blood Pressure 130/67 136/60 177/83 O2 Sat by Pulse 97 96 95 Oximetry Radiologist called me and gave me had some blood small bowel obstruction and he also noticed some low attenuation lesions in the spleen also diverticulitis was noticed. Patient be admitted to Dr. Lucy Ayala wanted to consult Dr. Puentes chest x-ray EKG INR and Dr. Villa agreed to be consult for small bowel obstruction as well as splenic lesions and diverticulitis. He probably will need more specialized studies were explained Medical Decision Making - Lab Data Result diagrams: 10/06/17 13:45 10/06/17 13:45 Lab Results 10/06/17 10/06/17 10/06/17 Range/Units 13:45 13:45 13:45 WBC 2.4 L (3.8-10.6) k/uL RBC 3.20 L (4.30-5.90) m/uL Hgb 11.9 L (13.0-17.5) gm/dL Hct 39.2 (39.0-53.0) % MCV 122.4 H (80.0-100.0) fL MCH 37.2 H (25.0-35.0) pg MCHC 30.4 L (31.0-37.0) g/dL RDW 20.7 H (11.5-15.5) % Plt Count 564 H (150-450) k/uL Neutrophils % 78 % Lymphocytes % 10 % Monocytes % 6 % Eosinophils % 1 % Basophils % 2 % Neutrophils # 1.9 (1.3-7.7) k/uL Lymphocytes # 0.2 L (1.0-4.8) k/uL Monocytes # 0.1 (0-1.0) k/uL Eosinophils # 0.0 (0-0.7) k/uL Basophils # 0.0 (0-0.2) k/uL Manual Slide Review Performed Polychromasia Present Hypochromasia Slight Poikilocytosis Slight Anisocytosis Moderate Macrocytosis Marked Sodium 138 (137-145) mmol/L Potassium 4.8 (3.5-5.1) mmol/L Chloride 106 (98-107) mmol/L Carbon Dioxide 23 (22-30) mmol/L Anion Gap 9 mmol/L BUN 18 (9-20) mg/dL Creatinine 1.00 (0.66-1.25) mg/dL Est GFR (CKD-EPI)AfAm 81 (>60 ml/min/1.73 sqM) Est GFR (CKD-EPI)NonAf 70 (>60 ml/min/1.73 sqM) Glucose 117 H (74-99) mg/dL Plasma Lactic Acid Ganesh 1.3 (0.7-2.0) mmol/L Calcium 9.4 (8.4-10.2) mg/dL Total Bilirubin 1.4 H (0.2-1.3) mg/dL AST 22 (17-59) U/L ALT 21 (21-72) U/L Alkaline Phosphatase 47 (38-126) U/L Troponin I (0.000-0.034) ng/mL Total Protein 6.2 L (6.3-8.2) g/dL Albumin 3.7 (3.5-5.0) g/dL Amylase 57 (30-110) U/L Lipase 52 (23-300) U/L Urine Color Urine Appearance (Clear) Urine pH (5.0-8.0) Ur Specific [place] (1.001-1.035) Urine Protein (Negative) Urine Glucose (UA) (Negative) Urine Ketones (Negative) Urine Blood (Negative) Urine Nitrite (Negative) Urine Bilirubin (Negative) Urine Urobilinogen (<2.0) mg/dL Ur Leukocyte Esterase (Negative) Urine WBC (0-5) /hpf Hyaline Casts (0-2) /lpf Granular Casts (0) /lpf Urine Mucus (None) /hpf 10/06/17 10/06/17 Range/Units 13:45 15:13 WBC (3.8-10.6) k/uL RBC (4.30-5.90) m/uL Hgb (13.0-17.5) gm/dL Hct (39.0-53.0) % MCV (80.0-100.0) fL MCH (25.0-35.0) pg MCHC (31.0-37.0) g/dL RDW (11.5-15.5) % Plt Count (150-450) k/uL Neutrophils % % Lymphocytes % % Monocytes % % Eosinophils % % Basophils % % Neutrophils # (1.3-7.7) k/uL Lymphocytes # (1.0-4.8) k/uL Monocytes # (0-1.0) k/uL Eosinophils # (0-0.7) k/uL Basophils # (0-0.2) k/uL Manual Slide Review Polychromasia Hypochromasia Poikilocytosis Anisocytosis Macrocytosis Sodium (137-145) mmol/L Potassium (3.5-5.1) mmol/L Chloride (98-107) mmol/L Carbon Dioxide (22-30) mmol/L Anion Gap mmol/L BUN (9-20) mg/dL Creatinine (0.66-1.25) mg/dL Est GFR (CKD-EPI)AfAm (>60 ml/min/1.73 sqM) Est GFR (CKD-EPI)NonAf (>60 ml/min/1.73 sqM) Glucose (74-99) mg/dL Plasma Lactic Acid Ganesh (0.7-2.0) mmol/L Calcium (8.4-10.2) mg/dL Total Bilirubin (0.2-1.3) mg/dL AST (17-59) U/L ALT (21-72) U/L Alkaline Phosphatase (38-126) U/L Troponin I <0.012 (0.000-0.034) ng/mL Total Protein (6.3-8.2) g/dL Albumin (3.5-5.0) g/dL Amylase (30-110) U/L Lipase (23-300) U/L Urine Color Yellow Urine Appearance Clear (Clear) Urine pH 5.5 (5.0-8.0) Ur Specific [place] 1.023 (1.001-1.035) Urine Protein 1+ H (Negative) Urine Glucose (UA) Negative (Negative) Urine Ketones Negative (Negative) Urine Blood Negative (Negative) Urine Nitrite Negative (Negative) Urine Bilirubin Negative (Negative) Urine Urobilinogen <2.0 (<2.0) mg/dL Ur Leukocyte Esterase Negative (Negative) Urine WBC 2 (0-5) /hpf Hyaline Casts 4 H (0-2) /lpf Granular Casts 1 (0) /lpf Urine Mucus Rare H (None) /hpf Disposition Clinical Impression: Abdominal pain, Small bowel obstruction, Splenic lesion, Diverticulitis Disposition: ADMITTED IP TO THIS [facility] Condition: Good Referrals: Laurita Sandra MD [Primary Care Provider] - 1-2 days
[2017-10-06 14:15] LABS: Albumin 3.7 g/dL (3.5-5.0); Calcium 9.4 mg/dL (8.4-10.2); Potassium 4.8 mmol/L (3.5-5.1); Total Bilirubin 1.4 mg/dL (0.2-1.3); Total Protein 6.2 g/dL (6.3-8.2)
[2017-10-06 14:16] LABS: Anisocytosis Moderate; Basophils % (A) 2 %; Eosinophils % (A) 1 %; HCT 39.2 % (39.0-53.0); HGB 11.9 gm/dL (13.0-17.5); Hypochromasia Slight; Lymphocytes # (A) 0.2 k/uL (1.0-4.8); Lymphocytes % (A) 10 %; MCH 37.2 pg (25.0-35.0); MCHC 30.4 g/dL (31.0-37.0); MCV 122.4 fL (80.0-100.0); Macrocytosis Marked; Mean Platelet Volume 7.7; Monocytes # (A) 0.1 k/uL (0-1.0); Monocytes % (A) 6 %; Neutrophils # (A) 1.9 k/uL (1.3-7.7); Neutrophils % (A) 78 %; Platelet Count 564 k/uL (150-450); Poikilocytosis Slight; RDW 20.7 % (11.5-15.5); WBC 2.4 k/uL (3.8-10.6)
[2017-10-06 15:09] LABS: Polychromasia Present
[2017-10-06 15:24] LABS: Appearance,Urine Clear (Clear); Bilirubin,Urine Negative (Negative); Blood,Urine Negative (Negative); Color,Urine Yellow; Glucose,Urine (UA) Negative (Negative); Granular Casts,Urine 1 /lpf (0); Hyaline Casts,Urine 4 /lpf (0-2); Ketones,Urine Negative (Negative); Leukocyte Esterase,Urine Negative (Negative); Mucus,Urine Rare /hpf; Nitrite,Urine Negative (Negative); PH, Urine 5.5 (5.0-8.0); Protein,Urine 1+ (Negative); Specific Gravity,Urine 1.023 (1.001-1.035); Urobilinogen,Urine <2.0 mg/dL (<2.0); WBC,Urine 2 /hpf (0-5)
[2017-10-06] MEDS: MORPHINE SULFATE 2 MG/ML SYRINGE IVP PRN (15:34)
--- NOTE | 2017-10-06 15:45 | CT ---
EXAMINATION TYPE: CT abdomen pelvis w con DATE OF EXAM: 10/06/2017 COMPARISON: HISTORY: lower abd pain, history of diverticulitis CT DLP: 1329.2 mGycm Automated exposure control for dose reduction was used. TECHNIQUE: Helical acquisition of images was performed from the lung bases through the pelvis. CONTRAST: Performed without Oral Contrast and with IV Contrast, patient injected with 100 mL of Isovue 300. FINDINGS: LUNG BASES: Bibasilar pleural thickening and groundglass opacities. LIVER/GB: The liver parenchyma and gallbladder are within normal limits. A small amount of perihepati c fluid is evident. PANCREAS: Unremarkable. SPLEEN: Numerous areas of low attenuation are seen scattered throughout the spleen. The largest is ne ar the superior portion of the spleen is ill-defined and roughly measures up to 13 cm. Additional sim ilar attenuation seen intraparenchymally scattered throughout the spleen. ADRENALS: No significant abnormality is seen. KIDNEYS: Evidence of prior right nephrectomy. The left kidney is atrophic. FREE AIR: No free air is visualized. RETROPERITONEAL ADENOPATHY: None visualized REPRODUCTIVE ORGANS: No significant abnormality is seen URINARY BLADDER: No significant abnormality is seen. PELVIC ADENOPATHY: None visualized. OSSEOUS STRUCTURES: Bilateral total hip prostheses are evident which limits evaluation of the low pe lvis. Multilevel degenerative type changes of the spine. No acute fracture is evident. BOWEL: Multiple dilated loops of small bowel are evident. There is evidence of mesenteric edema as w ell as fluid surrounding multiple loops of small bowel. Mesenteric fat inflammation is also seen thro ughout the colon most pronounced in the rectosigmoid region. No free air. Normal appendix. IMPRESSION: 1. Multiple dilated loops of small bowel with free fluid and mesenteric edema. No transition point. T hese findings are concerning for early small bowel obstruction versus ileus. Serial radiographs are r ecommended. 2. Numerous well-defined foci of multiloculated fluid attenuation scattered throughout the spleen. Th is is new compared to the prior study. Etiology may reflect prior hemorrhage, prior trauma or prior i schemia. Malignancy should also be considered. Abscess is felt to be less likely. 3. Rectosigmoid diverticulitis. 3. Bibasilar groundglass opacities present. Early pneumonia should be considered. 4. Evidence of a prior right nephrectomy. Supplemental communication-these findings were discussed with Dr. Castaneda on 10/06/[address] Svetlana downey.
[2017-10-06] MEDS ORDERED: NALOXONE 0.4 MG/ML 1 ML VIAL IV PRN (15:57)
--- NOTE | 2017-10-06 16:45 | XR ---
EXAMINATION TYPE: XR chest 2V DATE OF EXAM: 10/06/2017 COMPARISON: NONE HISTORY: Pain TECHNIQUE: Frontal and lateral views of the chest are obtained. FINDINGS: Airspace opacity in the right upper lung as well as the right perihilar region. Retrocardia c airspace disease is also present. No pneumothorax or pleural effusion. Osseous structures are intac t. Cardiac mediastinal silhouette is within normal limits. IMPRESSION: 3 discrete areas of airspace disease. Infection is the primary consideration however malignancy is no t excluded. Given the findings in the abdomen consideration should be given to CT of the thorax.
--- NOTE | 2017-10-06 16:47 | XR ---
EXAMINATION TYPE: XR KUB DATE OF EXAM: 10/06/2017 4:11 PM CLINICAL HISTORY: Abdominal pain TECHNIQUE: Two Upright KUB images of the abdomen are obtained. COMPARISON: None. FINDINGS: Multiple areas of dilated small bowel as well as air-fluid levels throughout the abdomen. S urgical clips are seen throughout the right abdomen. No gross evidence of pneumoperitoneum. Bibasilar opacities are seen which are better described on the concurrently performed chest radiograph. Opacif ication of the urinary bladder from recently performed CT. Bilateral hip prostheses are evident. IMPRESSION: Multiple dilated loops of small bowel as well as scattered air-fluid levels. These findings are arun r described on the recently performed CT and are highly concerning for small bowel obstruction versus ileus. Serial radiographs are recommended.
[2017-10-06 17:48] VITALS: BMI 28.7
[2017-10-06] MEDS: MORPHINE SULFATE 2 MG/ML SYRINGE IV PRN (19:15)
[2017-10-06] MEDS: SODIUM CHLORIDE 0.9% 1,000 ML IV SCH (22:37)
[2017-10-06] MEDS: MAGNESIUM SULFATE-D5W PMX 1 GM in DEXTROSE/WATER 1 100ML.BAG IVPB SCH (22:44)
[2017-10-06] MEDS: ONDANSETRON 4 MG/2 ML VIAL IVP PRN (22:46)
[2017-10-06] MEDS ORDERED: LEVOFLOXACIN 500MG-D5W PMX 500 MG in DEXTROSE/WATER 1 100ML.BAG IVPB SCH (23:00)
[2017-10-07] MEDS: PANTOPRAZOLE 40 MG/10 ML VIAL IVP SCH ×3 (00:14→20:04)
[2017-10-07] MEDS: MORPHINE SULFATE 2 MG/ML SYRINGE IV PRN ×2 (00:19→18:33)
[2017-10-07] MEDS: MAGNESIUM SULFATE-D5W PMX 1 GM in DEXTROSE/WATER 1 100ML.BAG IVPB SCH (00:24)
[2017-10-07] MEDS: HYDROXYUREA 500 MG CAP PO SCH ×5 (00:47→21:55)
[2017-10-07] MEDS: metroNIDAZOLE-NS PMX 500 MG in SALINE 1 100ML.BAG IVPB SCH ×5 (01:35→23:51)
[2017-10-07] MEDS ORDERED: LEVOFLOXACIN 500MG-D5W PMX 500 MG in DEXTROSE/WATER 1 100ML.BAG IVPB SCH (04:00)
[2017-10-07] MEDS: SODIUM CHLORIDE 0.9% 1,000 ML IV SCH ×3 (04:10→23:51)
[2017-10-07 07:20] LABS: Albumin 3.3 g/dL (3.5-5.0); Anisocytosis Slight; Basophils % (A) 1 %; Calcium 8.8 mg/dL (8.4-10.2); Eosinophils % (A) 1 %; HCT 38.8 % (39.0-53.0); HGB 12.2 gm/dL (13.0-17.5); Hypochromasia Moderate; Lymphocytes # (A) 0.2 k/uL (1.0-4.8); Lymphocytes % (A) 9 %; MCH 38.2 pg (25.0-35.0); MCHC 31.5 g/dL (31.0-37.0); MCV 121.2 fL (80.0-100.0); Macrocytosis Marked; Mean Platelet Volume 7.5; Monocytes # (A) 0.2 k/uL (0-1.0); Monocytes % (A) 8 %; Neutrophils # (A) 1.8 k/uL (1.3-7.7); Neutrophils % (A) 76 %; Platelet Count 536 k/uL (150-450); Poikilocytosis Slight; Potassium 4.7 mmol/L (3.5-5.1); RDW 19.7 % (11.5-15.5); Total Protein 5.8 g/dL (6.3-8.2); WBC 2.4 k/uL (3.8-10.6)
[2017-10-07] MEDS: ENOXAPARIN 40 MG/0.4 ML SYRINGE SQ SCH (08:13)
[2017-10-07] MEDS: ONDANSETRON 4 MG/2 ML VIAL IVP PRN (08:16)
--- NOTE | 2017-10-07 08:23 | US ---
EXAMINATION TYPE: US abdomen limited DATE OF EXAM: 10/07/2017 COMPARISON: CT dated 10/06/2017 CLINICAL HISTORY: Pain. EXAM MEASUREMENTS: Spleen: 15.5cm Left Kidney: 12.3 x 6.4 x 6.3cm 1. Spleen: 2 hypoechoic masses seen with low-level internal echoes 5.1 x 4.3 x 4.2cm this mass appear s vascular, 2.) 8.8 x 7.2 x 6.9cm, no flow by color doppler is noted. 2. Left Kidney: wnl Patient had difficulty holding his breath making exam technically difficult. IMPRESSION: There is splenomegaly. The hypoechoic areas within the spleen correspond to the abnormali ties noted on CT which show cystic measurements by Hounsfield units. Findings could possibly be indic ative of chronic splenic infarcts.
--- NOTE | 2017-10-07 11:57 | P.GSCN ---
<Isabel Michele Jarrell - Last Filed: 10/07/17 11:37> History of Present Illness Consult date: 10/07/17 Reason for Consult: Several small bowel obstruction abdominal pain History of present illness: 81-year-old male who has a past medical history of a prior CVA, hypertension, hyperlipidemia, prior GI bleed has a known history of mild polycythemia and thrombocytosis being followed by hematology in a regular basis is on hydroxyurea presented on the day of admission to the emergency room for chief complaint of right lower quadrant abdominal pain radiates to the suprapubic area extends across to the left lower quadrant. Patient states the symptoms started around midnight became more symptomatic continue to persist seen in the emergency room a computed tomography scan of the abdomen pelvis with contrast reviewing the report indicates there were multiple dilated loops of small bowel with free air and mesenteric edema no transition point. Findings were concerning for small bowel obstruction or an ileus. Also showed bibasilar groundglass opacities early pneumonia could not be excluded. Rectosigmoid diverticulitis noted It was noted that the patient was admitted on August 2017 for abdominal pain in the lower abdomen more on the left and the right at that time the patient was given the diagnosis of orchitis urinary tract infection started on antibiotics. Patient underwent an EGD and a colonoscopy in July 2016 findings showed a small duodenal ulcer and diverticulosis in the emergency room there were 3 attempts by the nursing staff to insert a nasogastric tube not able also nursing on the floor tried once. 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 rt groin swelling redness,and hardness to area- to see 08/20/17, recent passing out History of Any Multi-Drug Resistant Organisms: None Reported Past Surgical History: Adenoidectomy, Hernia Repair, Joint Replacement, Orthopedic Surgery, Tonsillectomy Additional Past Surgical History / Comment(s): R kidney donor, kiesha hip replacement, L hand trigger finger sx, uvuloplasty, left carotid stent, bilateral inguinal hernia repair, deviated septum repair, colonoscopy, R cataract removal with lens-now has membrane problem and plugged R tear duct. Pain procedures Past Anesthesia/Blood Transfusion Reactions: No Reported Reaction Past Psychological History: No Psychological Hx Reported Smoking Status: Never smoker - Past Family History Father Family Medical History: CVA/TIA Additional Family Medical History / Comment(s): Father at 80 from stroke Mother Family Medical History: No Reported History Additional Family Medical History / Comment(s): Mother at age 55 from polycystic kidney disease. Brother(s) Additional Family Medical History / Comment(s): Patient has 1 brother with multiple medical problems including diabetes. Sister(s) Family Medical History: Renal Disease Additional Family Medical History / Comment(s): Patient has one sister that at age 60 from kidney failure due to polycystic kidney disease. Daughter(s) Family Medical History: No Reported History Additional Family Medical History / Comment(s): Patient has one daughter with no major medical problems. Son(s) Additional Family Medical History / Comment(s): Patient has 5 sons. 2 at premature . One while skiing from a myocardial infarction at age 32. One son is alive with no major medical problems. Medications and Allergies Home Medications Medication Instructions Recorded Confirmed Type Allopurinol [Zyloprim] 300 mg PO DAILY 09/01/13 10/06/17 History Hydroxyurea [Hydrea] 500 mg PO QID 09/01/13 10/06/17 History hydrALAZINE HCL [Apresoline] 25 mg PO BID 09/01/13 10/06/17 History Aspirin 325 mg PO DAILY 08/02/16 10/06/17 History EPINEPHrine (Auto Inject) [Epipen] 0.3 mg IM ONCE PRN 01/06/17 10/06/17 History Gabapentin [Neurontin] 300 mg PO BID 06/13/17 10/06/17 History Pantoprazole Sodium [Protonix] 40 mg PO AC-BRKFST 08/04/17 10/06/17 History Metoprolol Tartrate 25 mg PO BID #60 tab 08/06/17 10/06/17 Rx Omeprazole Magnesium [PriLOSEC OTC] 20 mg PO ONCE PRN 10/06/17 10/06/17 History Allergies Allergy/AdvReac Type Severity Reaction Status Date / Time venom-honey bee Allergy Anaphylaxis Verified 10/06/17 17:49 [bee venom (honey bee)] Surgical - Exam Vital Signs Temp Pulse Resp BP Pulse Ox 97.9 F 52 L 18 130/67 97 10/06/17 13:00 10/06/17 13:00 10/06/17 13:00 10/06/17 13:00 10/06/17 13:00 GENERAL APPEARANCE: 81year old male patient being seen is alert, oriented 3 no acute distress. VITAL SIGNS: Reviewed HEENT: Head is normocephalic and atraumatic. Pupils are equal and reactive. The nares are patent. Oropharynx is clear without lesions. NECK: Supple without lymphadenopathy. Traches midline. HEART: S1, S2. Regular rate and rhythm.no murmur noted denying chest pain LUNGS: No crackles or wheezes are heard. shortness of breath ABDOMEN: Soft, mild tenderness to the left lower quadrant no nausea no vomiting nothing by mouth nondistended with good bowel sounds. No peritoneal signs. No palpable organomegaly or masses. EXTREMITIES: Normal skin color and turgor. No cyanosis, rash, ulceration, clubbing or edema. Radial pedal pulses are 2/4 bilaterally. NEUROLOGICAL: No focal deficits. Strength and sensation are grossly intact. Results - Labs 10/07/17 06:17 10/07/17 06:17 Abnormal Lab Results - Last 24 Hours (Table) 10/06/17 10/06/17 10/06/17 Range/Units 13:45 13:45 15:13 WBC 2.4 L (3.8-10.6) k/uL RBC 3.20 L (4.30-5.90) m/uL Hgb 11.9 L (13.0-17.5) gm/dL Hct (39.0-53.0) % MCV 122.4 H (80.0-100.0) fL MCH 37.2 H (25.0-35.0) pg MCHC 30.4 L (31.0-37.0) g/dL RDW 20.7 H (11.5-15.5) % Plt Count 564 H (150-450) k/uL Lymphocytes # 0.2 L (1.0-4.8) k/uL Glucose 117 H (74-99) mg/dL Total Bilirubin 1.4 H (0.2-1.3) mg/dL ALT (21-72) U/L Total Protein 6.2 L (6.3-8.2) g/dL Albumin (3.5-5.0) g/dL Urine Protein 1+ H (Negative) Hyaline Casts 4 H (0-2) /lpf Urine Mucus Rare H (None) /hpf 10/07/17 10/07/17 Range/Units 06:17 06:17 WBC 2.4 L (3.8-10.6) k/uL RBC 3.20 L (4.30-5.90) m/uL Hgb 12.2 L (13.0-17.5) gm/dL Hct 38.8 L (39.0-53.0) % MCV 121.2 H (80.0-100.0) fL MCH 38.2 H (25.0-35.0) pg MCHC (31.0-37.0) g/dL RDW 19.7 H (11.5-15.5) % Plt Count 536 H (150-450) k/uL Lymphocytes # 0.2 L (1.0-4.8) k/uL Glucose 141 H (74-99) mg/dL Total Bilirubin (0.2-1.3) mg/dL ALT 18 L (21-72) U/L Total Protein 5.8 L (6.3-8.2) g/dL Albumin 3.3 L (3.5-5.0) g/dL Urine Protein (Negative) Hyaline Casts (0-2) /lpf Urine Mucus (None) /hpf Diabetes panel 10/06/17 10/07/17 Range/Units 13:45 06:17 Sodium 138 137 (137-145) mmol/L Potassium 4.8 4.7 (3.5-5.1) mmol/L Chloride 106 106 (98-107) mmol/L Carbon Dioxide 23 24 (22-30) mmol/L BUN 18 15 (9-20) mg/dL Creatinine 1.00 1.04 (0.66-1.25) mg/dL Glucose 117 H 141 H (74-99) mg/dL Calcium 9.4 8.8 (8.4-10.2) mg/dL AST 22 21 (17-59) U/L ALT 21 18 L (21-72) U/L Alkaline Phosphatase 47 43 (38-126) U/L Total Protein 6.2 L 5.8 L (6.3-8.2) g/dL Albumin 3.7 3.3 L (3.5-5.0) g/dL Thyroid panel 10/06/17 Range/Units 13:45 TSH 2.800 (0.465-4.680) mIU/L Calcium panel 10/06/17 10/07/17 Range/Units 13:45 06:17 Calcium 9.4 8.8 (8.4-10.2) mg/dL Albumin 3.7 3.3 L (3.5-5.0) g/dL Pituitary panel 10/06/17 10/06/17 10/07/17 Range/Units 13:45 13:45 06:17 Sodium 138 137 (137-145) mmol/L Potassium 4.8 4.7 (3.5-5.1) mmol/L Chloride 106 106 (98-107) mmol/L Carbon Dioxide 23 24 (22-30) mmol/L BUN 18 15 (9-20) mg/dL Creatinine 1.00 1.04 (0.66-1.25) mg/dL Glucose 117 H 141 H (74-99) mg/dL Calcium 9.4 8.8 (8.4-10.2) mg/dL TSH 2.800 (0.465-4.680) mIU/L Adrenal panel 10/06/17 10/07/17 Range/Units 13:45 06:17 Sodium 138 137 (137-145) mmol/L Potassium 4.8 4.7 (3.5-5.1) mmol/L Chloride 106 106 (98-107) mmol/L Carbon Dioxide 23 24 (22-30) mmol/L BUN 18 15 (9-20) mg/dL Creatinine 1.00 1.04 (0.66-1.25) mg/dL Glucose 117 H 141 H (74-99) mg/dL Calcium 9.4 8.8 (8.4-10.2) mg/dL Total Bilirubin 1.4 H 1.0 (0.2-1.3) mg/dL AST 22 21 (17-59) U/L ALT 21 18 L (21-72) U/L Alkaline Phosphatase 47 43 (38-126) U/L Total Protein 6.2 L 5.8 L (6.3-8.2) g/dL Albumin 3.7 3.3 L (3.5-5.0) g/dL Assessment and Plan Assessment: Impression Present on admission bilateral lower abdominal pain with a CAT scan abdomen and pelvis suspect early small bowel obstruction not ruled out A recent admission in August 2017 severe abdominal pain suspect acute diverticulitis Memory loss 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 Severe esophageal reflex Thrombocytosis chronic History of a deviated septum inability to pass a nasogastric tube this admission EGD and colonoscopy in July 2016 report indicates small duodenal ulcer and diverticulosis Plan EGD with passing of a nasal gastric tube will be done under sedation today patient and agree we'll proceed No evidence of an acute surgical abdomen IV fluid for hydration Bowel rest IV antibiotics per the attending Levdanika and yl Await further recommendations dr wiseman hematology DVT and GI prophylaxis Recommend conservative management at this time Surgical consultation note dictated for Dr. Enriquez The above impression and plan of care have been discussed and directed by signing physician. Isabel Michele nurse practitioner acting as scribe for signing physician. <Karon Enriquez N - Last Filed: 10/07/17 13:21> Surgical - Exam Vital Signs Temp Pulse Resp BP Pulse Ox 97.9 F 52 L 18 130/67 97 10/06/17 13:00 10/06/17 13:00 10/06/17 13:00 10/06/17 13:00 10/06/17 13:00 Results - Labs 10/07/17 06:17 10/07/17 06:17 Abnormal Lab Results - Last 24 Hours (Table) 10/06/17 10/06/17 10/06/17 Range/Units 13:45 13:45 15:13 WBC 2.4 L (3.8-10.6) k/uL RBC 3.20 L (4.30-5.90) m/uL Hgb 11.9 L (13.0-17.5) gm/dL Hct (39.0-53.0) % MCV 122.4 H (80.0-100.0) fL MCH 37.2 H (25.0-35.0) pg MCHC 30.4 L (31.0-37.0) g/dL RDW 20.7 H (11.5-15.5) % Plt Count 564 H (150-450) k/uL Lymphocytes # 0.2 L (1.0-4.8) k/uL Glucose 117 H (74-99) mg/dL Total Bilirubin 1.4 H (0.2-1.3) mg/dL ALT (21-72) U/L Total Protein 6.2 L (6.3-8.2) g/dL Albumin (3.5-5.0) g/dL Urine Protein 1+ H (Negative) Hyaline Casts 4 H (0-2) /lpf Urine Mucus Rare H (None) /hpf 10/07/17 10/07/17 Range/Units 06:17 06:17 WBC 2.4 L (3.8-10.6) k/uL RBC 3.20 L (4.30-5.90) m/uL Hgb 12.2 L (13.0-17.5) gm/dL Hct 38.8 L (39.0-53.0) % MCV 121.2 H (80.0-100.0) fL MCH 38.2 H (25.0-35.0) pg MCHC (31.0-37.0) g/dL RDW 19.7 H (11.5-15.5) % Plt Count 536 H (150-450) k/uL Lymphocytes # 0.2 L (1.0-4.8) k/uL Glucose 141 H (74-99) mg/dL Total Bilirubin (0.2-1.3) mg/dL ALT 18 L (21-72) U/L Total Protein 5.8 L (6.3-8.2) g/dL Albumin 3.3 L (3.5-5.0) g/dL Urine Protein (Negative) Hyaline Casts (0-2) /lpf Urine Mucus (None) /hpf Diabetes panel 10/06/17 10/07/17 Range/Units 13:45 06:17 Sodium 138 137 (137-145) mmol/L Potassium 4.8 4.7 (3.5-5.1) mmol/L Chloride 106 106 (98-107) mmol/L Carbon Dioxide 23 24 (22-30) mmol/L BUN 18 15 (9-20) mg/dL Creatinine 1.00 1.04 (0.66-1.25) mg/dL Glucose 117 H 141 H (74-99) mg/dL Calcium 9.4 8.8 (8.4-10.2) mg/dL AST 22 21 (17-59) U/L ALT 21 18 L (21-72) U/L Alkaline Phosphatase 47 43 (38-126) U/L Total Protein 6.2 L 5.8 L (6.3-8.2) g/dL Albumin 3.7 3.3 L (3.5-5.0) g/dL Thyroid panel 10/06/17 Range/Units 13:45 TSH 2.800 (0.465-4.680) mIU/L Calcium panel 10/06/17 10/07/17 Range/Units 13:45 06:17 Calcium 9.4 8.8 (8.4-10.2) mg/dL Albumin 3.7 3.3 L (3.5-5.0) g/dL Pituitary panel 10/06/17 10/06/17 10/07/17 Range/Units 13:45 13:45 06:17 Sodium 138 137 (137-145) mmol/L Potassium 4.8 4.7 (3.5-5.1) mmol/L Chloride 106 106 (98-107) mmol/L Carbon Dioxide 23 24 (22-30) mmol/L BUN 18 15 (9-20) mg/dL Creatinine 1.00 1.04 (0.66-1.25) mg/dL Glucose 117 H 141 H (74-99) mg/dL Calcium 9.4 8.8 (8.4-10.2) mg/dL TSH 2.800 (0.465-4.680) mIU/L Adrenal panel 10/06/17 10/07/17 Range/Units 13:45 06:17 Sodium 138 137 (137-145) mmol/L Potassium 4.8 4.7 (3.5-5.1) mmol/L Chloride 106 106 (98-107) mmol/L Carbon Dioxide 23 24 (22-30) mmol/L BUN 18 15 (9-20) mg/dL Creatinine 1.00 1.04 (0.66-1.25) mg/dL Glucose 117 H 141 H (74-99) mg/dL Calcium 9.4 8.8 (8.4-10.2) mg/dL Total Bilirubin 1.4 H 1.0 (0.2-1.3) mg/dL AST 22 21 (17-59) U/L ALT 21 18 L (21-72) U/L Alkaline Phosphatase 47 43 (38-126) U/L Total Protein 6.2 L 5.8 L (6.3-8.2) g/dL Albumin 3.7 3.3 L (3.5-5.0) g/dL
--- NOTE | 2017-10-07 13:22 | P.HPADDEND ---
H&P Addendum H&P Addendum Date: 10/07/17 Patient has history of UVPP surgery. 3 attempts of NG tube was unsuccessful. Recommend proceeding with upper endoscopy with NG tube placement. Recommend conservative management only for small bowel obstruction as he is very high surgical risk. Plan described to patient who agreed with proceeding with upper endoscopy.
--- NOTE | 2017-10-07 13:37 | P.CRDCN ---
History of Present Illness History of present illness: Mr. Esqueda is a pleasant 81-year-old male past medical history significant for hypertension, dyslipidemia, CVA, thrombocytopenia and carotid artery disease status post stenting. He denies history of coronary artery disease. He follows with a adolescent specialist out of [place] Dr. Loving. We have been asked to see him in consultation for preoperative evaluation. He presented to the hospital yesterday afternoon with symptoms of abdominal pain and vomiting. He states he has been vomiting for the last 2 days. X-ray of the abdomen revealed multiple dilated loops of small bowel with scattered air- fluid levels. CT abdomen pelvis reveals multiple dilated loops of small bowel with free fluid and mesenteric edema. Concerning for early small bowel obstruction versus ileus. He denies symptoms of chest pain, shortness of breath , dyspnea with exertion, dizziness, palpitations, PND or orthopnea. EKG reveals sinus mechanism with PVCs. No acute ST or T wave abnormalities noted. Chest x-ray reveals a paced. The right upper lung as well as right perihilar region. No acute cardiopulmonary process noted. Laboratory data reviewed, WBC 2.4, hemoglobin 12.2, platelets 536, sodium 137, potassium 4.7, creatinine 1.04, cardiac enzymes negative 3, TSH 2.8. Current cardiac medications include aspirin 325 mg daily, hydralazine 25 mg twice a day and Lopressor 25 mg twice a day. He also takes Protonix, Prilosec, Neurontin, hydroxyurea and allopurinol. Most recent echocardiogram performed July 2017 reveals preserved left ventricular systolic function with ejection fraction 55-60% with mild pulmonary hypertension and mild MR. Review of Systems At the time of my exam: CONSTITUTIONAL: Denies fever. Denies chills. EYES: Denies blurred vision. Denies vision changes. Denies eye pain. EARS, NOSE, MOUTH & THROAT: Denies headache. Denies sore throat. Denies ear pain. CARDIOVASCULAR: Denies chest pain. Denies shortness of breath. Denies orthopnea. Denies PND. Denies palpitations. RESPIRATORY: Denies cough. GASTROINTESTINAL: Complains of abdominal pain. Denies diarrhea. Denies constipation. Denies nausea. Denies vomiting. MUSCULOSKELETAL: Denies myalgias. INTEGUMENTARY: Denies pruitis. Denies rash. NEUROLOGIC: Denies numbness. Denies tingling. Denies weakness. PSYCHIATRIC: Denies anxiety. Denies depression. ENDOCRINE: Denies fatigue. Denies weight change. Denies polydipsia. Denies polyurina. GENITOURINARY: Denies burning, hematuria or urgency with micturation. HEMATOLOGIC: Denies history of anemia. Denies bleeding. 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 rt groin swelling redness,and hardness to area- to see 08/20/17, recent passing out History of Any Multi-Drug Resistant Organisms: None Reported Past Surgical History: Adenoidectomy, Hernia Repair, Joint Replacement, Orthopedic Surgery, Tonsillectomy Additional Past Surgical History / Comment(s): R kidney donor, kiesha hip replacement, L hand trigger finger sx, uvuloplasty, left carotid stent, bilateral inguinal hernia repair, deviated septum repair, colonoscopy, R cataract removal with lens-now has membrane problem and plugged R tear duct. Pain procedures Past Anesthesia/Blood Transfusion Reactions: No Reported Reaction Past Psychological History: No Psychological Hx Reported Smoking Status: Never smoker - Past Family History Father Family Medical History: CVA/TIA Additional Family Medical History / Comment(s): Father at 80 from stroke Mother Family Medical History: No Reported History Additional Family Medical History / Comment(s): Mother at age 55 from polycystic kidney disease. Brother(s) Additional Family Medical History / Comment(s): Patient has 1 brother with multiple medical problems including diabetes. Sister(s) Family Medical History: Renal Disease Additional Family Medical History / Comment(s): Patient has one sister that at age 60 from kidney failure due to polycystic kidney disease. Daughter(s) Family Medical History: No Reported History Additional Family Medical History / Comment(s): Patient has one daughter with no major medical problems. Son(s) Additional Family Medical History / Comment(s): Patient has 5 sons. 2 at premature . One while skiing from a myocardial infarction at age 32. One son is alive with no major medical problems. Medications and Allergies Home Medications Medication Instructions Recorded Confirmed Type Allopurinol [Zyloprim] 300 mg PO DAILY 09/01/13 10/06/17 History Hydroxyurea [Hydrea] 500 mg PO QID 09/01/13 10/06/17 History hydrALAZINE HCL [Apresoline] 25 mg PO BID 09/01/13 10/06/17 History Aspirin 325 mg PO DAILY 08/02/16 10/06/17 History EPINEPHrine (Auto Inject) [Epipen] 0.3 mg IM ONCE PRN 01/06/17 10/06/17 History Gabapentin [Neurontin] 300 mg PO BID 06/13/17 10/06/17 History Pantoprazole Sodium [Protonix] 40 mg PO AC-[id number] 08/04/17 10/06/17 History Metoprolol Tartrate 25 mg PO BID #60 tab 08/06/17 10/06/17 Rx Omeprazole Magnesium [PriLOSEC OTC] 20 mg PO ONCE PRN 10/06/17 10/06/17 History Allergies Allergy/AdvReac Type Severity Reaction Status Date / Time venom-honey bee Allergy Anaphylaxis Verified 10/06/17 17:49 [bee venom (honey bee)] Physical Exam Vitals: Vital Signs Temp Pulse Pulse Pulse Resp BP BP 10/07/17 07:21 98.3 F 80 16 142/68 10/07/17 00:27 98.7 F 90 18 145/82 10/06/17 20:02 98.3 F 84 16 156/70 10/06/17 18:29 98.1 F 63 16 147/78 10/06/17 16:55 99.1 F 103 H 18 167/73 10/06/17 16:25 98.1 F 63 16 147/78 10/06/17 15:32 89 18 177/83 10/06/17 14:13 51 L 18 136/60 Pulse Ox 10/07/17 07:21 93 L 10/07/17 00:27 95 10/06/17 20:02 94 L 10/06/17 18:29 95 10/06/17 16:55 96 10/06/17 16:25 95 10/06/17 15:32 95 10/06/17 14:13 96 Intake and Output 10/06/17 10/07/17 10/07/17 22:59 06:59 14:59 Output Total 400 1000 Balance -400 -1000 Output: Urine 400 Emesis 1000 Other: Voiding Method Urinal Weight 90.71 kg Blood pressure 142/68 heart rate 80 afebrile maintaining oxygen saturation on room air GENERAL: This is a 81-year-old male in no apparent distress at the time of my examination. HEENT: Head is atraumatic, normocephalic. Pupils are equal, round. Sclerae anicteric. Conjunctivae are clear. Mucous membranes of the mouth are moist. Neck is supple. There is no jugular venous distention. No carotid bruit is heard. LUNGS: Clear to auscultation no wheezes, rales or rhonchi. No chest wall tenderness is noted on palpation or with deep breathing. HEART: Regular rate and rhythm without murmurs, rubs or gallops. S1 and S2 heard. ABDOMEN: Soft, mild tenderness noted to the left lower quadrant. Bowel sounds are heard. No organomegaly noted. EXTREMITIES: No evidence of peripheral edema and no calf tenderness noted. VASCULAR: Radial and dorsalis pedis pulses palpated, no evidence of clubbing. NEUROLOGIC: Patient is awake, alert and oriented x3. Results 10/07/17 06:17 10/07/17 06:17 Cardiac Enzymes 10/06/17 10/06/17 10/06/17 Range/Units 13:45 13:45 22:06 AST 22 (17-59) U/L Troponin I <0.012 <0.012 (0.000-0.034) ng/mL 10/07/17 10/07/17 Range/Units 01:23 06:17 AST 21 (17-59) U/L Troponin I <0.012 (0.000-0.034) ng/mL CBC 10/06/17 10/07/17 Range/Units 13:45 06:17 WBC 2.4 L 2.4 L (3.8-10.6) k/uL RBC 3.20 L 3.20 L (4.30-5.90) m/uL Hgb 11.9 L 12.2 L (13.0-17.5) gm/dL Hct 39.2 38.8 L (39.0-53.0) % Plt Count 564 H 536 H (150-450) k/uL Comprehensive Metabolic Panel 10/06/17 10/07/17 Range/Units 13:45 06:17 Sodium 138 137 (137-145) mmol/L Potassium 4.8 4.7 (3.5-5.1) mmol/L Chloride 106 106 (98-107) mmol/L Carbon Dioxide 23 24 (22-30) mmol/L BUN 18 15 (9-20) mg/dL Creatinine 1.00 1.04 (0.66-1.25) mg/dL Glucose 117 H 141 H (74-99) mg/dL Calcium 9.4 8.8 (8.4-10.2) mg/dL AST 22 21 (17-59) U/L ALT 21 18 L (21-72) U/L Alkaline Phosphatase 47 43 (38-126) U/L Total Protein 6.2 L 5.8 L (6.3-8.2) g/dL Albumin 3.7 3.3 L (3.5-5.0) g/dL Current Medications Generic Name Dose Route Start Last Admin Trade Name Freq PRN Reason Stop Dose Admin Enoxaparin Sodium 40 mg 10/07/17 09:00 10/07/17 08:13 Lovenox SQ 40 mg DAILY JS Administration Hydralazine HCl 10 mg 10/06/17 22:39 Apresoline IVP Q6HR PRN Blood Pressure - High Hydroxyurea 500 mg 10/06/17 22:00 10/07/17 12:17 Hydrea PO Not Given QID JS Sodium Chloride 1,000 mls @ 100 mls/hr 10/06/17 16:00 10/07/17 12:06 Saline 0.9% IV 100 mls/hr .Q10H JS Administration Metronidazole 500 mg/ IV 100 mls @ 100 mls/hr 10/07/17 00:00 10/07/17 12:05 Solution IVPB 100 mls/hr Q6HR JS Administration Levofloxacin 500 mg/ IV 100 mls @ 100 mls/hr 10/07/17 04:00 10/07/17 04:48 Solution IVPB 100 mls/hr Q24H JS Administration Morphine Sulfate 2 mg 10/06/17 13:28 10/06/17 15:34 Morphine Sulfate (Inj) IVP 2 mg Q30M PRN Administration Pain/Discomfort Morphine Sulfate 2 mg 10/06/17 15:57 10/07/17 00:19 Morphine Sulfate (Inj) IV 2 mg Q4HR PRN Administration Severe Pain Naloxone HCl 0.2 mg 10/06/17 15:57 Narcan IV Q2M PRN Opioid Reversal Ondansetron HCl 4 mg 10/06/17 15:57 10/07/17 08:16 Zofran IVP 4 mg Q8HR PRN Administration Nausea And Vomiting Pantoprazole Sodium 40 mg 10/06/17 21:30 10/07/17 08:12 Protonix IVP 40 mg BID JS Administration Intake and Output 10/06/17 10/07/17 10/07/17 22:59 06:59 14:59 Output Total 400 1000 Balance -400 -1000 Output: Urine 400 Emesis 1000 Other: Voiding Method Urinal Weight 90.71 kg 10/07/17 06:17 10/07/17 06:17 Assessment and Plan Assessment: ASSESSMENT Abdominal pain, suspect early small bowel obstruction Hypertension Dyslipidemia Carotid artery stenosis status post left carotid stent placement PLAN Patient had a recent echo performed revealing preserved left ventricular systolic function with ejection fraction 55-60%. He has no symptoms of angina, shortness of breath, exertional dyspnea, PND or orthopnea. He is currently euvolemic with no symptoms of heart failure. No obvious contraindications for surgery. He is an average risk for surgical intervention from a cardiac perspective. Follow-up with his primary adolescent specialist Dr. Loving upon discharge. Nurse Practitioner note has been reviewed, I agree with a documented findings and plan of care. Patient was seen and examined.
--- NOTE | 2017-10-07 14:54 | P.HPIM ---
History of Present Illness H&P Date: 10/06/17 Chief Complaint: Abdominal pain This is an 81-year-old male patient of Dr. Sandra with a previous medical history significant for hypertension and hypertensive cardio vascular disease, hyperlipidemia, chronic kidney disease stage II, history of essential thrombocytosis, history of the severe spondylosis of the cervical spine,He was last admitted 08/25/2017 for orchitis with urinary tract infection along with acute diverticulitis on IV antibiotics then thereafter discharged to home, with oral levaquin and flagyl and did well. He now comes in to the emergency room secondary to abdominal pain bilateral lower abdomen and periumbilical region, one day duration. Patient denies any fever however he has increasing nausea and vomiting and abdominal distention, was subsequently seen in the emergency room patient denies any chest pain or palpitations or lightheadedness, no pleurisy, he has vomitus of bilious material, no fecaloid material. Abnormal history include prior kidney donor, colonoscopy in the past. No history of bowel obstruction in the past no history of bowel resection, he does have recurrent diverticular disease. Emergency room, he had workup that included a CAT scan, Computed tomography scan findings show suspected small bowel dilated loops with fluid and mesenteric edema no transition point concerning for early small bowel obstruction against ileus, also mesenteric fat inflammation throughout: Mainly the rectosigmoid region, normal appendix also noted with splenic abnormality showing numerous areas of low attenuation, largest of 13 cm, ill-defined spleen, , rectosigmoid diverticulitis, or basilar groundglass opacifications, early pneumonia should be considered. They have already notified Dr. Fried regarding the suspected early small bowel obstruction, NG tube was requested to be placed, in the emergency room. 2 Attempts were made, however patient was screaming during the procedure, and the NG tube was curling in his throat rather than passing into the pharynx. NG tube procedure was held in the process of the patient refused. Patient was admitted for small bowel obstruction, and acute diverticulitis.. EKG in the ER shows normal sinus rhythm with multiple PVCs no ST segment elevation, magnesium has been replaced in the emergency room as well for hypomagnesemia. Consult was made with Dr. Enriquez, and cardiology, and Dr. Puentes for spleen lesions Review of Systems Constitutional: Reports as per HPI, Reports chills, Reports lethargy, Reports poor appetite, Denies anorexia, Denies chronic headaches, Denies chronic pain, Denies daytime sleepiness, Denies fatigue, Denies fever, Denies malaise, Denies night sweats, Denies sweats, Denies weakness, Denies weight gain, Denies weight loss Ears, nose, mouth and throat: Reports as per HPI, Denies ant. neck pain, Denies bleeding gums, Denies dental pain, Denies dysphagia, Denies epistaxis, Denies headache, Denies hoarseness, Denies mouth pain, Denies nasal congestion, Denies nasal discharge, Denies neck fullness/pressure, Denies neck lump, Denies nose pain, Denies odynophagia, Denies post-nasal drip, Denies sinus pain, Denies sinus pressure, Denies swelling in mouth, Denies swelling in throat, Denies sore throat, Denies vertigo, Denies voice changes Cardiovascular: Reports as per HPI, Denies chest pain, Denies claudication, Denies decreased exercise tolerance, Denies dyspnea on exertion, Denies edema, Denies high blood pressure, Denies irregular heart beat, Denies leg edema, Denies lightheadedness, Denies orthopnea, Denies palpitations, Denies paroxysmal nocturnal dyspnea, Denies phlebitis, Denies rapid heart beat, Denies shortness of breath, Denies syncope Respiratory: Reports as per HPI, Denies congestion, Denies cough, Denies cough with sputum, Denies dyspnea, Denies excessive sputum, Denies hemoptysis, Denies home oxygen, Denies pain, Denies pain on inspiration, Denies pleurisy, Denies respiratory infections, Denies sleep apnea, Denies snoring, Denies wheezing Gastrointestinal: Reports as per HPI, Reports abdominal pain, Reports nausea, Denies belching, Denies bloating, Denies BRBPR, Denies change in bowel habits, Denies coffee ground emesis, Denies constipation, Denies diarrhea, Denies dyspepsia, Denies early satiety, Denies excessive gas, Denies heartburn, Denies hematemesis, Denies hematochezia, Denies indigestion, Denies jaundice, Denies lactose intolerance, Denies loss of appetite, Denies melena, Denies vomiting Genitourinary: Reports as per HPI, Denies discharge, Denies dysuria, Denies erectile dysfunction, Denies flank pain, Denies genital pain, Denies genital sores, Denies hematuria, Denies impotence, Denies incontinence, Denies kidney stones, Denies nocturia, Denies polyuria, Denies testicular lump, Denies testicular pain, Denies urinary frequency, Denies urinary hesitancy, Denies urinary retention Musculoskeletal: Reports as per HPI, Reports morning stiffness, Denies arm numbness/tingling, Denies atrophy, Denies fractures, Denies frequent falls, Denies gait dysfunction, Denies hot joints, Denies leg numbness/tingling, Denies limitation of motion, Denies loss of height, Denies low back pain, Denies muscle cramps, Denies muscle weakness, Denies myalgias, Denies neck pain , Denies neck stiffness, Denies prior amputations, Denies redness of joints, Denies shooting arm pain, Denies shooting leg pain Integumentary: Reports as per HPI, Denies acne, Denies boils, Denies brittle nails, Denies change in hair/nails, Denies color changes, Denies darkening of skin, Denies depigmentation, Denies dryness, Denies foot/leg ulcers, Denies growths, Denies hirsutism, Denies lesions, Denies onychomycosis, Denies pruritus , Denies rash, Denies sores, Denies striae, Denies unusual bruising, Denies wounds Neurological: Reports as per HPI, Denies aphasia, Denies ataxia, Denies balance difficulties, Denies burning pain, Denies change in mentation, Denies change in smell/taste, Denies change in speech, Denies confusion, Denies convulsions, Denies double vision, Denies gait dysfunction, Denies head injury, Denies headaches, Denies hearing difficulties, Denies lack of coordination, Denies loss of vision, Denies memory loss, Denies migraines, Denies motor disturbance, Denies numbness, Denies paralysis, Denies paresthesias, Denies seizures, Denies sensory deficit, Denies spasticity, Denies syncope, Denies tic, Denies tingling , Denies transient paralysis, Denies tremors, Denies vertigo, Denies weakness, Denies visual changes Psychiatric: Reports as per HPI Endocrine: Reports as per HPI Hematologic/Lymphatic: Reports as per HPI Allergic/Immunologic: Reports as per HPI Past Medical History Past Medical History: Cancer, CVA/TIA, Eye Disorder, GERD/Reflux, Hyperlipidemia , Hypertension, Osteoarthritis (OA), Renal Disease, Sleep Apnea/CPAP/BIPAP Additional Past Medical History / Comment(s): Past lower GI bleed, diverticular dx, thrombocytosis; 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 rt groin swelling redness,and hardness to area- to see 08/20/17, recent passing out History of Any Multi-Drug Resistant Organisms: None Reported Past Surgical History: Adenoidectomy, Hernia Repair, Joint Replacement, Orthopedic Surgery, Tonsillectomy Additional Past Surgical History / Comment(s): R kidney donor, kiesha hip replacement, L hand trigger finger sx, uvuloplasty, left carotid stent, bilateral inguinal hernia repair, deviated septum repair, colonoscopy, R cataract removal with lens-now has membrane problem and plugged R tear duct. Pain procedures Past Anesthesia/Blood Transfusion Reactions: No Reported Reaction Past Psychological History: No Psychological Hx Reported Smoking Status: Never smoker - Past Family History Father Family Medical History: CVA/TIA Additional Family Medical History / Comment(s): Father at 80 from stroke Mother Family Medical History: No Reported History Additional Family Medical History / Comment(s): Mother at age 55 from polycystic kidney disease. Brother(s) Additional Family Medical History / Comment(s): Patient has 1 brother with multiple medical problems including diabetes. Sister(s) Family Medical History: Renal Disease Additional Family Medical History / Comment(s): Patient has one sister that at age 60 from kidney failure due to polycystic kidney disease. Daughter(s) Family Medical History: No Reported History Additional Family Medical History / Comment(s): Patient has one daughter with no major medical problems. Son(s) Additional Family Medical History / Comment(s): Patient has 5 sons. 2 at premature . One while skiing from a myocardial infarction at age 32. One son is alive with no major medical problems. Medications and Allergies Home Medications Medication Instructions Recorded Confirmed Type Allopurinol [Zyloprim] 300 mg PO DAILY 09/01/13 10/06/17 History Hydroxyurea [Hydrea] 500 mg PO QID 09/01/13 10/06/17 History hydrALAZINE HCL [Apresoline] 25 mg PO BID 09/01/13 10/06/17 History Aspirin 325 mg PO DAILY 08/02/16 10/06/17 History EPINEPHrine (Auto Inject) [Epipen] 0.3 mg IM ONCE PRN 01/06/17 10/06/17 History Gabapentin [Neurontin] 300 mg PO BID 06/13/17 10/06/17 History Pantoprazole Sodium [Protonix] 40 mg PO AC-BRKFST 08/04/17 10/06/17 History Metoprolol Tartrate 25 mg PO BID #60 tab 08/06/17 10/06/17 Rx Omeprazole Magnesium [PriLOSEC OTC] 20 mg PO ONCE PRN 10/06/17 10/06/17 History Allergies Allergy/AdvReac Type Severity Reaction Status Date / Time venom-honey bee Allergy Anaphylaxis Verified 10/06/17 17:49 [bee venom (honey bee)] Physical Exam Vitals: Vital Signs Temp Pulse Resp BP Pulse Ox 10/06/17 15:32 89 18 177/83 95 10/06/17 14:13 51 L 18 136/60 96 10/06/17 13:00 97.9 F 52 L 18 130/67 97 Intake and Output 10/06/17 10/06/17 10/06/17 06:59 14:59 22:59 Other: Weight 90.718 kg - Constitutional General appearance: cooperative, no acute distress - EENT Eyes: anicteric sclerae, EOMI, dentition normal, normal appearance ENT: NA/AT, normal oropharynx - Neck Neck: normal ROM - Respiratory Respiratory: bilateral: CTA, negative: diminished, dullness, rales - Cardiovascular Rhythm: regular Heart sounds: normal: S1, S2 Abnormal Heart Sounds: no systolic murmur, no diastolic murmur, no rub, no S3 Gallop, no S4 Gallop, no click, no other - Gastrointestinal General gastrointestinal: soft, splenomegaly, tenderness - Integumentary Integumentary: decreased turgor, normal - Neurologic Neurologic: CNII-XII intact - Musculoskeletal Musculoskeletal: gait normal - Psychiatric Psychiatric: A&O x's 3, appropriate affect Results CBC & Chem 7: 10/07/17 06:17 10/07/17 06:17 Labs: Abnormal Lab Results - Last 24 Hours (Table) 10/06/17 10/06/17 10/06/17 Range/Units 13:45 13:45 15:13 WBC 2.4 L (3.8-10.6) k/uL RBC 3.20 L (4.30-5.90) m/uL Hgb 11.9 L (13.0-17.5) gm/dL MCV 122.4 H (80.0-100.0) fL MCH 37.2 H (25.0-35.0) pg MCHC 30.4 L (31.0-37.0) g/dL RDW 20.7 H (11.5-15.5) % Plt Count 564 H (150-450) k/uL Lymphocytes # 0.2 L (1.0-4.8) k/uL Glucose 117 H (74-99) mg/dL Total Bilirubin 1.4 H (0.2-1.3) mg/dL Total Protein 6.2 L (6.3-8.2) g/dL Urine Protein 1+ H (Negative) Hyaline Casts 4 H (0-2) /lpf Urine Mucus Rare H (None) /hpf Laboratory Results WBC 2.4 k/uL (3.8-10.6) L 10/06/17 13:45 RBC 3.20 m/uL (4.30-5.90) L 10/06/17 13:45 Hgb 11.9 gm/dL (13.0-17.5) L 10/06/17 13:45 Hct 39.2 % (39.0-53.0) 10/06/17 13:45 MCV 122.4 fL (80.0-100.0) H 10/06/17 13:45 MCH 37.2 pg (25.0-35.0) H 10/06/17 13:45 MCHC 30.4 g/dL (31.0-37.0) L 10/06/17 13:45 RDW 20.7 % (11.5-15.5) H 10/06/17 13:45 Plt Count 564 k/uL (150-450) H 10/06/17 13:45 Neutrophils % 78 % 10/06/17 13:45 Lymphocytes % 10 % 10/06/17 13:45 Monocytes % 6 % 10/06/17 13:45 Eosinophils % 1 % 10/06/17 13:45 Basophils % 2 % 10/06/17 13:45 Neutrophils # 1.9 k/uL (1.3-7.7) 10/06/17 13:45 Lymphocytes # 0.2 k/uL (1.0-4.8) L 10/06/17 13:45 Monocytes # 0.1 k/uL (0-1.0) 10/06/17 13:45 Eosinophils # 0.0 k/uL (0-0.7) 10/06/17 13:45 Basophils # 0.0 k/uL (0-0.2) 10/06/17 13:45 Manual Slide Review Performed 10/06/17 13:45 Polychromasia Present 10/06/17 13:45 Hypochromasia Slight 10/06/17 13:45 Poikilocytosis Slight 10/06/17 13:45 Anisocytosis Moderate 10/06/17 13:45 Macrocytosis Marked 10/06/17 13:45 Sodium 138 mmol/L (137-145) 10/06/17 13:45 Potassium 4.8 mmol/L (3.5-5.1) 10/06/17 13:45 Chloride 106 mmol/L (98-107) 10/06/17 13:45 Carbon Dioxide 23 mmol/L (22-30) 10/06/17 13:45 Anion Gap 9 mmol/L 10/06/17 13:45 BUN 18 mg/dL (9-20) 10/06/17 13:45 Creatinine 1.00 mg/dL (0.66-1.25) 10/06/17 13:45 Est GFR (CKD-EPI)AfAm 81 (>60 ml/min/1.73 sqM) 10/06/17 13:45 Est GFR (CKD-EPI)NonAf 70 (>60 ml/min/1.73 sqM) 10/06/17 13:45 Glucose 117 mg/dL (74-99) H 10/06/17 13:45 Plasma Lactic Acid Ganesh 1.3 mmol/L (0.7-2.0) 10/06/17 13:45 Calcium 9.4 mg/dL (8.4-10.2) 10/06/17 13:45 Total Bilirubin 1.4 mg/dL (0.2-1.3) H 10/06/17 13:45 AST 22 U/L (17-59) 10/06/17 13:45 ALT 21 U/L (21-72) 10/06/17 13:45 Alkaline Phosphatase 47 U/L (38-126) 10/06/17 13:45 Troponin I <0.012 ng/mL (0.000-0.034) 10/06/17 13:45 Total Protein 6.2 g/dL (6.3-8.2) L 10/06/17 13:45 Albumin 3.7 g/dL (3.5-5.0) 10/06/17 13:45 Amylase 57 U/L (30-110) 10/06/17 13:45 Lipase 52 U/L (23-300) 10/06/17 13:45 Urine Color Yellow 10/06/17 15:13 Urine Appearance Clear (Clear) 10/06/17 15:13 Urine pH 5.5 (5.0-8.0) 10/06/17 15:13 Ur Specific Reynolds 1.023 (1.001-1.035) 10/06/17 15:13 Urine Protein 1+ (Negative) H 10/06/17 15:13 Urine Glucose (UA) Negative (Negative) 10/06/17 15:13 Urine Ketones Negative (Negative) 10/06/17 15:13 Urine Blood Negative (Negative) 10/06/17 15:13 Urine Nitrite Negative (Negative) 10/06/17 15:13 Urine Bilirubin Negative (Negative) 10/06/17 15:13 Urine Urobilinogen <2.0 mg/dL (<2.0) 10/06/17 15:13 Ur Leukocyte Esterase Negative (Negative) 10/06/17 15:13 Urine WBC 2 /hpf (0-5) 10/06/17 15:13 Hyaline Casts 4 /lpf (0-2) H 10/06/17 15:13 Granular Casts 1 /lpf (0) 10/06/17 15:13 Urine Mucus Rare /hpf (None) H 10/06/17 15:13 Thrombosis Risk Factor Assmnt - DVT/VTE Prophylaxis DVT/VTE Prophylaxis: Pharmacologic Prophylaxis ordered - Choose All That Apply Each Risk Factor Represents 2 Points: Patient confined to bed Each Risk Factor Represents 3 Points: Age 75 years or older Thrombosis Risk Factor Assessment Total Risk Factor Score: 5 Thrombosis Risk Factor Assessment Level: High Risk Assessment and Plan Plan: 1. Acute abdominal pain with CAT scan finding suspicious of early small bowel obstruction, with no transition point seen in the CAT scan, patient needs an NG tube for decompression, 3 attempts were made in the emergency room, Dr. Enriquez has been consulted, no emergent plans for surgical intervention at this time, she wants the spleen abnormality to be worked up, IV hydration, IV antibiotics for the suspected acute diverticulitis in the rectal sigmoid area.. Negative urinalysis except for proteinuria 2. Acute Rectosigmoid diverticulitis: IV Levaquin and Flagyl along with fluid resuscitation will change to IV Zosyn and discontinue Levaquin. 3 essential thrombocytosis: Follows with Dr. Moreno as outpatient on hydroxyurea 4. Anemia and pancytopenia, cannot rule out early myelodysplasia, however hydroxyurea can show this time side effect, being monitored closely by oncology , oncology is on consult IV studies to be done 5. Abnormal red blood cell volume, patient has chronic EtOH, also with the suspected bone marrow pathology, 6. Moderate alcohol consumption, [place] drink daily we would monitor closely for delirium tremens, last alcohol intake approximately 10/05/2017 7. Multiple PVCs, and hypomagnesemia, thyroid function test to be obtained, cardiology is on consult, initial beta blockers by mouth, echocardiogram 8 atherosclerotic heart disease and hypertensive cardiovascular disease, hydralazine 10 every 6 when necessary, by mouth meds on hold secondary to nothing by mouth status 5 gout: Hold Zyloprim 300 mg a day while nothing by mouth. 6 hypertension: Remain on metoprolol 25 mg twice a day along with hydralazine 10 mg IV every 6 when necessary, oral hydralazine 25 mg twice a day on hold while nothing by mouth. 7 severe GERD/GI prophylaxis: Remain on pantoprazole. 8 chronic neuropathy: Hold gabapentin 300 mg twice a day while nothing by mouth. 9 mild memory loss: Mostly secondary to previous history of stroke. 10 DVT prophylaxis: Continue patient on Venodyne boots and knee-high JOSE LUIS hose, neurological prophylaxis with Lovenox.
[2017-10-07] MEDS ORDERED: LIDOCAINE 1% INJ 10MG/ML (20 ML MDV) ONE (15:26)
[2017-10-07] MEDS ORDERED: PROPOFOL 10 MG/ML 20 ML VIAL IV ONE (15:26)
--- NOTE | 2017-10-07 15:27 | P.PN ---
Subjective Progress Note Date: 10/07/17 This is an 81-year-old male patient of Dr. Sandra with a previous medical history significant for hypertension and hypertensive cardio vascular disease, hyperlipidemia, chronic kidney disease stage II, history of essential thrombocytosis, history of the severe spondylosis of the cervical spine,He was last admitted 08/25/2017 for orchitis with urinary tract infection along with acute diverticulitis on IV antibiotics then thereafter discharged to home, with oral levaquin and flagyl and did well. He now comes in to the emergency room secondary to abdominal pain bilateral lower abdomen and periumbilical region, one day duration. Patient denies any fever however he has increasing nausea and vomiting and abdominal distention, was subsequently seen in the emergency room patient denies any chest pain or palpitations or lightheadedness, no pleurisy, he has vomitus of bilious material, no fecaloid material. Abnormal history include prior kidney donor, colonoscopy in the past. No history of bowel obstruction in the past no history of bowel resection, he does have recurrent diverticular disease. Emergency room, he had workup that included a CAT scan, Computed tomography scan findings show suspected small bowel dilated loops with fluid and mesenteric edema no transition point concerning for early small bowel obstruction against ileus, also mesenteric fat inflammation throughout: Mainly the rectosigmoid region, normal appendix also noted with splenic abnormality showing numerous areas of low attenuation, largest of 13 cm, ill-defined spleen, , rectosigmoid diverticulitis, or basilar groundglass opacifications, early pneumonia should be considered. They have already notified Dr. Fried regarding the suspected early small bowel obstruction, NG tube was requested to be placed, in the emergency room. 2 Attempts were made, however patient was screaming during the procedure, and the NG tube was curling in his throat rather than passing into the pharynx. NG tube procedure was held in the process of the patient refused. Patient was admitted for small bowel obstruction, and acute diverticulitis.. EKG in the ER shows normal sinus rhythm with multiple PVCs no ST segment elevation, magnesium has been replaced in the emergency room as well for hypomagnesemia. Consult was made with Dr. Enriquez, and cardiology, and Dr. Puentes for spleen lesions 10/07: Abdominal ultrasound showed splenomegaly. Hypoechoic areas within the spleen corresponding to the abnormalities noted on CT which shows cystic measurements by Hounsfield units. Findings could possibly be indicative of chronic splenic infarcts. Patient has been seen by general surgeon with plan for EGD and passing of a NG tube under sedation as multiple attempts of been successful. Conservative management is recommended at this time. Oncology is on consult. Patient complains of continued vomiting of bile. He states his pain is controlled. He denies passing any gas or bowel movement. Objective - Vital Signs Vital signs: Vital Signs Temp 98 F 10/07/17 14:42 Pulse 67 10/07/17 14:42 Resp 16 10/07/17 14:42 BP 152/62 10/07/17 14:42 Pulse Ox 93 L 10/07/17 14:42 Intake & Output 10/06/17 10/07/17 10/07/17 18:59 06:59 18:59 Output Total 1400 Balance -1400 Weight 90.71 kg Output: Urine 400 Emesis 1000 Other: Voiding Method Urinal # Voids 1 - Exam General appearance: cooperative, no acute distress - EENT Eyes: anicteric sclerae, EOMI, dentition normal, normal appearance ENT: NA/AT, normal oropharynx - Neck Neck: normal ROM - Respiratory Respiratory: bilateral: CTA, negative: diminished, dullness, rales - Cardiovascular Rhythm: regular Heart sounds: normal: S1, S2 Abnormal Heart Sounds: no systolic murmur, no diastolic murmur, no rub, no S3 Gallop, no S4 Gallop, no click, no other - Gastrointestinal General gastrointestinal: soft, splenomegaly, tenderness - Integumentary Integumentary: decreased turgor, normal - Neurologic Neurologic: CNII-XII intact - Musculoskeletal Musculoskeletal: gait normal - Psychiatric Psychiatric: A&O x's 3, appropriate affect - Labs CBC & Chem 7: 10/07/17 06:17 10/07/17 06:17 Labs: Abnormal Lab Results - Last 24 Hours (Table) 10/06/17 10/06/17 10/07/17 Range/Units 13:45 15:13 06:17 WBC 2.4 L 2.4 L (3.8-10.6) k/uL RBC 3.20 L 3.20 L (4.30-5.90) m/uL Hgb 11.9 L 12.2 L (13.0-17.5) gm/dL Hct 38.8 L (39.0-53.0) % MCV 122.4 H 121.2 H (80.0-100.0) fL MCH 37.2 H 38.2 H (25.0-35.0) pg MCHC 30.4 L (31.0-37.0) g/dL RDW 20.7 H 19.7 H (11.5-15.5) % Plt Count 564 H 536 H (150-450) k/uL Lymphocytes # 0.2 L 0.2 L (1.0-4.8) k/uL Glucose (74-99) mg/dL ALT (21-72) U/L Total Protein (6.3-8.2) g/dL Albumin (3.5-5.0) g/dL Urine Protein 1+ H (Negative) Hyaline Casts 4 H (0-2) /lpf Urine Mucus Rare H (None) /hpf 10/07/17 Range/Units 06:17 WBC (3.8-10.6) k/uL RBC (4.30-5.90) m/uL Hgb (13.0-17.5) gm/dL Hct (39.0-53.0) % MCV (80.0-100.0) fL MCH (25.0-35.0) pg MCHC (31.0-37.0) g/dL RDW (11.5-15.5) % Plt Count (150-450) k/uL Lymphocytes # (1.0-4.8) k/uL Glucose 141 H (74-99) mg/dL ALT 18 L (21-72) U/L Total Protein 5.8 L (6.3-8.2) g/dL Albumin 3.3 L (3.5-5.0) g/dL Urine Protein (Negative) Hyaline Casts (0-2) /lpf Urine Mucus (None) /hpf Assessment and Plan Plan: 1. Acute abdominal pain with CAT scan finding suspicious of early small bowel obstruction, with no transition point seen in the CAT scan, patient needs an NG tube for decompression, 3 attempts were made in the emergency room, Dr. Enriquez has been consulted, no emergent plans for surgical intervention at this time, she wants the spleen abnormality to be worked up, IV hydration, IV antibiotics for the suspected acute diverticulitis in the rectal sigmoid area.. Negative urinalysis except for proteinuria. Consult with Dr. Espinoza appreciated. Patient is to have EGD for NG tube placement. 2. Acute Rectosigmoid diverticulitis: IV Levaquin and Flagyl along with fluid resuscitation will change to IV Zosyn and discontinue Levaquin. 3. Essential thrombocytosis: Follows with Dr. Moreno as outpatient on hydroxyurea 4. Anemia and pancytopenia, cannot rule out early myelodysplasia, however hydroxyurea can show this side effect, being monitored closely by oncology, oncology is on consult. 5. Abnormal red blood cell volume, patient has chronic EtOH, also with the suspected bone marrow pathology, 6. Moderate alcohol consumption, [place] drink daily we would monitor closely for delirium tremens, last alcohol intake approximately 10/05/2017 7. Multiple PVCs, and hypomagnesemia, thyroid function test to be obtained, cardiology is on consult, initial beta blockers by mouth, echocardiogram 8. Atherosclerotic heart disease and hypertensive cardiovascular disease, hydralazine 10 every 6 when necessary, by mouth meds on hold secondary to nothing by mouth status 9. Gout: Hold Zyloprim 300 mg a day while nothing by mouth. 10. Hypertension: Remain on metoprolol 25 mg twice a day along with hydralazine 10 mg IV every 6 when necessary, oral hydralazine 25 mg twice a day on hold while nothing by mouth. 11. Severe GERD/GI prophylaxis: Remain on pantoprazole. 12. Chronic neuropathy: Hold gabapentin 300 mg twice a day while nothing by mouth. 13. Mild memory loss: Mostly secondary to previous history of stroke. 14. DVT prophylaxis: Continue patient on Venodyne boots and knee-high JOSE LUIS hose , neurological prophylaxis with Lovenox. Discharge plan: Most likely return home Impression and plan of care have been directed as dictated by the signing physician. Alexandra Quiles nurse practitioner acting as scribe for signing physician.
[2017-10-07] MEDS ORDERED: SODIUM CHLORIDE 0.9% 950 ML IV ONE (15:30)
--- NOTE | 2017-10-07 15:48 | P.PCN ---
Date of Procedure: 10/07/17 Description of Procedure: PREOPERATIVE DIAGNOSIS: Small bowel obstruction Inability to pass NG tube History of UVPP surgery POSTOPERATIVE DIAGNOSIS: Small bowel obstruction Inability to pass NG tube History of UVPP surgery OPERATION: Esophagogastroduodenoscopy with placement of NG tube overnight 100 mL obtained. SURGEON: Karon Enriquez MD ANESTHESIA: MAC. INDICATIONS: The patient is a 81-year-old male who presents with bowel obstruction and inability to pass NG tube. Benefits and risks of the procedure were described. Informed consent was obtained. DESCRIPTION: The patient was brought into the endoscopy suite and laid in the left lateral decubitus position. An Olympus gastroscope was passed along the posterior oropharynx down to the distal esophagus where the squamocolumnar junction was encountered at 40 cm from the incisors. The stomach was entered and bile was suctioned from the stomach 900 mL. Additional findings are listed below. The first through third portion of the duodenum was examined and unremarkable. Retroflexion of the scope confirmed Hill grade 3 lower esophageal valve. The squamocolumnar junction demonstrated LA grade A erosive esophagitis. Tertiary esophageal contractions were identified as well highly suspicious for presbyesophagus. An 18-Tajik nasogastric tube was placed with the assistance of CERTIFIED MORTICIAN. The stomach was desufflated. The patient tolerated the procedure well. FINDINGS: Squamocolumnar junction 40 cm from the incisors. Hiatal hernia Hill grade 4 lower esophageal valve. LA grade B erosive esophagitis. Over 900 mL of bile section from stomach RECOMMENDATIONS: Upper endoscopy as needed.
[2017-10-07] MEDS ORDERED: PIPERACILLIN-TAZOBACTAM 3.375 GM in DEXTROSE/WATER 1 50ML.BAG IVPB SCH (16:00)
--- NOTE | 2017-10-07 16:33 | P.CONS ---
History of Present Illness - Reason for Consult Consult date: 10/07/17 leukopenia Requesting physician: Kalani Castaneda - Chief Complaint SBO - History of Present Illness This a very nice patient who developed recurrent TIA in .He was in the hospital [facility] and then at [facility].His hospital course was complicated by LUE infection at the IV site and he is on Bactrium for it. His platelets counts have been elevated.He is not aware of previous hematologic disorders.He used to donate blood in the past.He was evaluated for sleep apnea in the past. Upon reviewing his old CBC,the patient has had mild thrombocytosis and erythrocytosis since 2009. He has slow speech and mild unstaidy gaitsince his TIA. He has chronic exertional dyspnea.He last colonoscopy was in 2010. 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 He had recurrent TIA in and was started on Hydrea since then and tolerating it well and his blood counts start to improve. He has been maintained on Hydroxyurea to control his known thrombocythemia. Most recently 2000mg a day. this is currently on hold as he presented with increasing abdominal pain and nausea. A CT scan was completed and shows a possible SBO versus Ileus. SUgical Team has consulted and advised conservative treatment as he is a high risk surgical candidate. Review of Systems A 14 point review of systems assessed and completed and all negative except HPI. 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 rt groin swelling redness,and hardness to area- to see 08/20/17, recent passing out History of Any Multi-Drug Resistant Organisms: None Reported Past Surgical History: Adenoidectomy, Hernia Repair, Joint Replacement, Orthopedic Surgery, Tonsillectomy Additional Past Surgical History / Comment(s): R kidney donor, kiesha hip replacement, L hand trigger finger sx, uvuloplasty, left carotid stent, bilateral inguinal hernia repair, deviated septum repair, colonoscopy, R cataract removal with lens-now has membrane problem and plugged R tear duct. Pain procedures Past Anesthesia/Blood Transfusion Reactions: No Reported Reaction Past Psychological History: No Psychological Hx Reported Smoking Status: Never smoker - Past Family History Father Family Medical History: CVA/TIA Additional Family Medical History / Comment(s): Father at 80 from stroke Mother Family Medical History: No Reported History Additional Family Medical History / Comment(s): Mother at age 55 from polycystic kidney disease. Brother(s) Additional Family Medical History / Comment(s): Patient has 1 brother with multiple medical problems including diabetes. Sister(s) Family Medical History: Renal Disease Additional Family Medical History / Comment(s): Patient has one sister that at age 60 from kidney failure due to polycystic kidney disease. Daughter(s) Family Medical History: No Reported History Additional Family Medical History / Comment(s): Patient has one daughter with no major medical problems. Son(s) Additional Family Medical History / Comment(s): Patient has 5 sons. 2 at premature . One while skiing from a myocardial infarction at age 32. One son is alive with no major medical problems. Medications and Allergies Home Medications Medication Instructions Recorded Confirmed Type Allopurinol [Zyloprim] 300 mg PO DAILY 09/01/13 10/06/17 History Hydroxyurea [Hydrea] 500 mg PO QID 09/01/13 10/06/17 History hydrALAZINE HCL [Apresoline] 25 mg PO BID 09/01/13 10/06/17 History Aspirin 325 mg PO DAILY 08/02/16 10/06/17 History EPINEPHrine (Auto Inject) [Epipen] 0.3 mg IM ONCE PRN 01/06/17 10/06/17 History Gabapentin [Neurontin] 300 mg PO BID 06/13/17 10/06/17 History Pantoprazole Sodium [Protonix] 40 mg PO AC-BRKFST 08/04/17 10/06/17 History Metoprolol Tartrate 25 mg PO BID #60 tab 08/06/17 10/06/17 Rx Omeprazole Magnesium [PriLOSEC OTC] 20 mg PO ONCE PRN 10/06/17 10/06/17 History Allergies Allergy/AdvReac Type Severity Reaction Status Date / Time venom-honey bee Allergy Anaphylaxis Verified 10/06/17 17:49 [bee venom (honey bee)] Physical Exam Vitals: Vital Signs Temp Pulse Pulse Pulse Resp BP BP 10/07/17 14:42 98 F 67 16 152/62 10/07/17 07:21 98.3 F 80 16 142/68 10/07/17 00:27 98.7 F 90 18 145/82 10/06/17 20:02 98.3 F 84 16 156/70 10/06/17 18:29 98.1 F 63 16 147/78 10/06/17 16:55 99.1 F 103 H 18 167/73 10/06/17 16:25 98.1 F 63 16 147/78 Pulse Ox 10/07/17 14:42 93 L 10/07/17 07:21 93 L 10/07/17 00:27 95 10/06/17 20:02 94 L 10/06/17 18:29 95 10/06/17 16:55 96 10/06/17 16:25 95 Intake and Output 10/07/17 10/07/17 10/07/17 06:59 14:59 22:59 Intake Total 150 Output Total 1000 Balance -1000 150 Intake: IV 150 Output: Emesis 1000 Other: Voiding Method Urinal # Voids 1 - Exam General appearance: cooperative, no acute distress - EENT Eyes: anicteric sclerae, EOMI, dentition normal, normal appearance ENT: NA/AT, normal oropharynx - Neck Neck: normal ROM - Respiratory Respiratory: bilateral: CTA, negative: diminished, dullness, rales - Cardiovascular Rhythm: regular Heart sounds: normal: S1, S2 Abnormal Heart Sounds: no systolic murmur, no diastolic murmur, no rub, no S3 Gallop, no S4 Gallop, no click, no other - Gastrointestinal General gastrointestinal: soft, splenomegaly, tenderness - Integumentary Integumentary: decreased turgor, normal - Neurologic Neurologic: CNII-XII intact - Musculoskeletal Musculoskeletal: gait normal - Psychiatric Psychiatric: A&O x's 3, appropriate affect Results CBC & Chem 7: 10/07/17 06:17 10/07/17 06:17 Labs: Abnormal Lab Results - Last 24 Hours (Table) 10/07/17 10/07/17 Range/Units 06:17 06:17 WBC 2.4 L (3.8-10.6) k/uL RBC 3.20 L (4.30-5.90) m/uL Hgb 12.2 L (13.0-17.5) gm/dL Hct 38.8 L (39.0-53.0) % MCV 121.2 H (80.0-100.0) fL MCH 38.2 H (25.0-35.0) pg RDW 19.7 H (11.5-15.5) % Plt Count 536 H (150-450) k/uL Lymphocytes # 0.2 L (1.0-4.8) k/uL Glucose 141 H (74-99) mg/dL ALT 18 L (21-72) U/L Total Protein 5.8 L (6.3-8.2) g/dL Albumin 3.3 L (3.5-5.0) g/dL Microbiology - Last 24 Hours (Table) 10/06/17 13:45 Blood Culture - Preliminary Blood No Growth after [address] scan - abdomen: report reviewed CT scan - pelvis: report reviewed Assessment and Plan Plan: Assessment and Recommendations: 1. 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 - He was started on Hydrea, which was initially very effective, but had significant Myelosuprression > Hydrea changed to Anagrelide in Feb 2016 > tolerated poorly mostly 2nd to diarrhea > he stated however, diarrhea started well befor anagrelide !!. He was recommended to start Jakafi , which is is hesitent about due to concerns about side effects. He was restarted on hydrea and monitored closely with dosing modifications and frequent CBCs - Maintained on 2000mg of Hydroxyurea daily - Hydrea on Hold at this time secondary to probable Acute Small Bowel Obstruction - Hold Aspirin at this time too until improvement, in the event he requires surgical intervention 2. Acute abdominal pain - CT Scan concerning for early small bowel obstruction - Conservative treatment - Endoscopy placed NG tube - Surgical Managment 3. 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 Previous CTs scans reviewed for comparison, no acute intervention required from oncology standpoint 4. Diverticulitis: IV abx and hydration per primary medicine. 5. Leukopenia/Lymphopenia - Likely secondary to hydroxyurea, he has a history of wax and waining in his blood counts on Hydrea. - At this time hydroxyurea is on hold for acute situation, once resolved and blood counts recover will resume, dose at resuming will be determined based on CBC at that time. 6. ETOH Daily - Per primary team monitor Physician Attestation: I have completed the full history and physical of this patient and agree with above dictation by Maribell Zuleta NP. Dictated as a scribe.
--- NOTE | 2017-10-07 16:33 | P.PN ---
Progress Note - Text Progress Note Date: 10/07/17 Patient subsequently awoke. On the way to transport, the patient was belligerent and pulled the NG tube. Patient offered for replacement of the NG tube under sedation. He declined. Risks of no treatment including possible bowel perforation and . Patient understood the risks and declined any further surgical intervention. Patient will be transferred to the floor nothing by mouth status.
--- NOTE | 2017-10-07 17:52 | P.PN ---
Progress Note - Text Progress Note Date: 10/07/17 Patient's is at bedside. Events including previous placement of NG tube was described. Patient had removed and pulled his NG tube. Patient is very high risk for surgery. Recommend prolonged nothing by mouth status. May need TPN. Patient's was very tearful and upset at her for withdrawing care. Nurse made aware of patient declining additional intervention.
[2017-10-07] MEDS: hydrALAZINE HCL 20 MG/ML 1 ML VIAL IVP PRN (20:04)
[2017-10-08] MEDS: PIPERACILLIN-TAZOBACTAM 3.375 GM in DEXTROSE/WATER 1 50ML.BAG IVPB SCH ×3 (04:21→20:36)
[2017-10-08] MEDS: metroNIDAZOLE-NS PMX 500 MG in SALINE 1 100ML.BAG IVPB SCH ×4 (05:14→23:20)
[2017-10-08 07:35] LABS: Albumin 3.4 g/dL (3.5-5.0); Calcium 8.8 mg/dL (8.4-10.2); Potassium 4.5 mmol/L (3.5-5.1); Total Bilirubin 0.9 mg/dL (0.2-1.3); Total Protein 5.8 g/dL (6.3-8.2)
[2017-10-08] MEDS: HYDROXYUREA 500 MG CAP PO SCH ×4 (08:06→21:06)
[2017-10-08] MEDS: ENOXAPARIN 40 MG/0.4 ML SYRINGE SQ SCH (08:08)
[2017-10-08] MEDS: PANTOPRAZOLE 40 MG/10 ML VIAL IVP SCH ×2 (08:08→20:09)
[2017-10-08] MEDS: SODIUM CHLORIDE 0.9% 1,000 ML IV SCH ×3 (08:08→23:20)
[2017-10-08 08:11] LABS: Anisocytosis Moderate; Basophils % (A) 2 %; Eosinophils % (A) 1 %; HCT 40.1 % (39.0-53.0); HGB 12.1 gm/dL (13.0-17.5); Hypochromasia Moderate; Lymphocytes # (A) 0.4 k/uL (1.0-4.8); Lymphocytes % (A) 17 %; MCH 37.8 pg (25.0-35.0); MCHC 30.3 g/dL (31.0-37.0); MCV 124.9 fL (80.0-100.0); Macrocytosis Marked; Mean Platelet Volume 8.1; Monocytes # (A) 0.3 k/uL (0-1.0); Monocytes % (A) 12 %; Neutrophils # (A) 1.5 k/uL (1.3-7.7); Neutrophils % (A) 65 %; Platelet Count 466 k/uL (150-450); Poikilocytosis Slight; RBC 3.21 m/uL (4.30-5.90); RDW 20.3 % (11.5-15.5); WBC 2.3 k/uL (3.8-10.6)
[2017-10-08] MEDS: ONDANSETRON 4 MG/2 ML VIAL IVP PRN (08:12)
--- NOTE | 2017-10-08 09:57 | P.PN ---
<RyneShannaIsabel M - Last Filed: 10/08/17 09:50> Subjective Progress Note Date: 10/08/17 Patient seen this morning sitting up in bed events noted patient is aware that he pulled out the nasogastric tube yesterday states he doesn't want any surgery or nasal gastric tube placed "leave me alone" Currently patient is nothing by mouth status no family at the bedside abdomen remains distended Objective - Vital Signs Vital signs: Vital Signs Temp 98.3 F 10/08/17 07:18 Pulse 67 10/08/17 07:18 Resp 16 10/08/17 07:18 BP 137/68 10/08/17 07:18 Pulse Ox 93 L 10/08/17 07:18 Intake & Output 10/07/17 10/08/17 10/08/17 18:59 06:59 18:59 Intake Total 150 1350 Output Total 301 Balance 150 1049 Intake: IV 150 Intake, IV Titration 1350 Amount Piperacillin-Tazobactam 3 450 .375 gm In Dextrose/Water 1 50ml.bag @ 12.5 mls/hr IVPB Q8HR JS Rx#: [id number] Sodium Chloride 0.9% 1, 800 000 ml @ 100 mls/hr IV . Q10H JS Rx#:[id number] metroNIDAZOLE-NS PMX 500 100 mg In Saline 1 100ml.bag @ 100 mls/hr IVPB Q6HR JS Rx#:[id number] Output: Urine 300 Emesis 1 Other: Voiding Method Urinal Toilet Toilet Urinal # Voids 1 200 - Exam Physical exam 81-year-old sitting up in bed oriented to self and place Lungs clear adequate air movement Heart S1-S2 audible irregular Abdomen diffuse tenderness highly distended few hypoactive bowel tones no stool NPO Extremities no edema - Labs CBC & Chem 7: 10/08/17 06:18 10/08/17 06:18 Labs: Abnormal Lab Results - Last 24 Hours (Table) 10/08/17 10/08/17 Range/Units 06:18 06:18 WBC 2.3 L (3.8-10.6) k/uL RBC 3.21 L (4.30-5.90) m/uL Hgb 12.1 L (13.0-17.5) gm/dL MCV 124.9 H (80.0-100.0) fL MCH 37.8 H (25.0-35.0) pg MCHC 30.3 L (31.0-37.0) g/dL RDW 20.3 H (11.5-15.5) % Plt Count 466 H (150-450) k/uL Lymphocytes # 0.4 L (1.0-4.8) k/uL Carbon Dioxide 21 L (22-30) mmol/L Glucose 114 H (74-99) mg/dL Total Protein 5.8 L (6.3-8.2) g/dL Albumin 3.4 L (3.5-5.0) g/dL Microbiology - Last 24 Hours (Table) 10/06/17 13:45 Blood Culture - Preliminary Blood No Growth after 24 hours Assessment and Plan Assessment: Impression Present on admission bilateral lower abdominal pain with a CAT scan abdomen and pelvis suspect early small bowel obstruction A recent admission in August 2017 severe abdominal pain suspect acute diverticulitis Memory loss 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 Severe esophageal reflex Thrombocytosis chronic History of a deviated septum inability to pass a nasogastric tube this admission EGD and colonoscopy in July 2016 report indicates small duodenal ulcer and diverticulosis Plan Strictly nothing by mouth IV fluid for hydration Bowel rest IV antibiotics per the attending Sheri and [place] Await further recommendations dr wiseman hematology DVT and GI prophylaxis Recommend conservative management at this time The above impression and plan of care have been discussed and directed by signing physician. Isabel Michele nurse practitioner acting as scribe for signing physician. <Karon Enriquez N - Last Filed: 10/09/17 20:46> Objective - Vital Signs Vital signs: Vital Signs Temp 98.6 F 10/09/17 15:00 Pulse 56 L 10/09/17 15:00 Resp 12 10/09/17 15:00 BP 147/113 10/09/17 15:00 Pulse Ox 93 L 10/09/17 15:00 Intake & Output 10/09/17 10/09/17 10/10/17 06:59 18:59 06:59 Intake Total 400 1000 Output Total 200 220 Balance 200 780 Weight 90.71 kg Intake: IV 1000 Sodium Chloride 0.9% 1, 1000 000 ml @ 125 mls/hr IV . Q8H [facility] Rx#:[id number] Intake, IV Titration 400 Amount Sodium Chloride 0.9% 1, 400 000 ml @ 125 mls/hr IV . Q8H [facility] Rx#:[id number] Output: Urine 200 220 Other: Voiding Method Urinal Urinal # Voids 2 # Emeses 2 - Labs CBC & Chem 7: 10/09/17 06:52 10/08/17 06:18 Labs: Abnormal Lab Results - Last 24 Hours (Table) 10/09/17 Range/Units 06:52 WBC 3.2 L (3.8-10.6) k/uL RBC 3.47 L (4.30-5.90) m/uL MCV 127.3 H (80.0-100.0) fL MCH 38.0 H (25.0-35.0) pg MCHC 29.8 L (31.0-37.0) g/dL RDW 20.3 H (11.5-15.5) % Plt Count 540 H (150-450) k/uL Lymphocytes # (Manual) 0.74 L (1.0-4.8) k/uL Metamyelocytes # (Man) 0.03 H (0) k/uL Myelocytes # (Manual) 0.03 H (0) k/uL Nucleated RBCs 1 H (0-0) /100 WBC Microbiology - Last 24 Hours (Table) 10/06/17 13:45 Blood Culture - Preliminary Blood No Growth after 72 hours
[2017-10-08] MEDS: MORPHINE SULFATE 2 MG/ML SYRINGE IVP PRN (10:11)
--- NOTE | 2017-10-08 14:46 | P.PN ---
Subjective Mr. Esqueda is seen and examined resting in bed in no acute distress. He underwent EGD yesterday and placement of NG tube. He did not tolerate his NG tube and pulled it out over night. He remains NPO and on bowel rest with no immediate plans for surgical intervention currently. Denies chest pain, shortness of breath, dizziness or palpitations. Blood pressure 137/68 heart rate 67 afebrile. Telemetry tracings indicate frequent PVC's. Laboratory data reviewed , hemoglobin 12.1, WBC 2.3, platelets 466, sodium 138, potassium 4.5, creatinine 1.24. Objective - Vital Signs Vital signs: Vital Signs Temp 98.3 F 10/08/17 07:18 Pulse 67 10/08/17 07:18 Resp 16 10/08/17 07:18 BP 137/68 10/08/17 07:18 Pulse Ox 93 L 10/08/17 07:18 Intake & Output 10/07/17 10/08/17 10/08/17 18:59 06:59 18:59 Intake Total 150 1350 Output Total 301 200 Balance 150 1049 -200 Intake: IV 150 Intake, IV Titration 1350 Amount Piperacillin-Tazobactam 3 450 .375 gm In Dextrose/Water 1 50ml.bag @ 12.5 mls/hr IVPB Q8HR [facility] Rx#: [id number] Sodium Chloride 0.9% 1, 800 000 ml @ 100 mls/hr IV . Q10H [facility] Rx#:[id number] metroNIDAZOLE-NS PMX 500 100 mg In Saline 1 100ml.bag @ 100 mls/hr IVPB Q6HR [facility] Rx#:[id number] Output: Urine 300 200 Emesis 1 Other: Voiding Method Urinal Toilet Toilet Urinal # Voids 1 200 - Exam GENERAL: Well-appearing, well-nourished and in no acute distress. NECK: Supple without JVD or thyromegaly. LUNGS: Breath sounds clear to auscultation bilaterally. Respiration equal and unlabored. No wheezes, rales or rhonchi. HEART: Regular rate and rhythm without murmurs, rubs or gallops. S1 and S2 heard. EXTREMITIES: Normal range of motion, no edema. No clubbing or cyanosis. Peripheral pulses intact. - Labs CBC & Chem 7: 10/08/17 06:18 10/08/17 06:18 Labs: Abnormal Lab Results - Last 24 Hours (Table) 10/08/17 10/08/17 Range/Units 06:18 06:18 WBC 2.3 L (3.8-10.6) k/uL RBC 3.21 L (4.30-5.90) m/uL Hgb 12.1 L (13.0-17.5) gm/dL MCV 124.9 H (80.0-100.0) fL MCH 37.8 H (25.0-35.0) pg MCHC 30.3 L (31.0-37.0) g/dL RDW 20.3 H (11.5-15.5) % Plt Count 466 H (150-450) k/uL Lymphocytes # 0.4 L (1.0-4.8) k/uL Carbon Dioxide 21 L (22-30) mmol/L Glucose 114 H (74-99) mg/dL Total Protein 5.8 L (6.3-8.2) g/dL Albumin 3.4 L (3.5-5.0) g/dL Microbiology - Last 24 Hours (Table) 10/06/17 13:45 Blood Culture - Preliminary Blood No Growth after 24 hours Assessment and Plan Assessment: ASSESSMENT Abdominal pain, suspect early small bowel obstruction Hypertension Dyslipidemia Carotid artery stenosis status post left carotid stent placement PLAN Continue current medical therapy and ongoing medical management of small bowel obstruction. We will continue to follow as needed, please feel free to call with further questions or concerns. Nurse Practitioner note has been reviewed, I agree with a documented findings and plan of care. Patient was seen and examined.
--- NOTE | 2017-10-08 15:21 | P.PN ---
Subjective Progress Note Date: 10/08/17 This is an 81-year-old male patient of Dr. Sandra with a previous medical history significant for hypertension and hypertensive cardio vascular disease, hyperlipidemia, chronic kidney disease stage II, history of essential thrombocytosis, history of the severe spondylosis of the cervical spine,He was last admitted 08/25/2017 for orchitis with urinary tract infection along with acute diverticulitis on IV antibiotics then thereafter discharged to home, with oral levaquin and flagyl and did well. He now comes in to the emergency room secondary to abdominal pain bilateral lower abdomen and periumbilical region, one day duration. Patient denies any fever however he has increasing nausea and vomiting and abdominal distention, was subsequently seen in the emergency room patient denies any chest pain or palpitations or lightheadedness, no pleurisy, he has vomitus of bilious material, no fecaloid material. Abnormal history include prior kidney donor, colonoscopy in the past. No history of bowel obstruction in the past no history of bowel resection, he does have recurrent diverticular disease. Emergency room, he had workup that included a CAT scan, Computed tomography scan findings show suspected small bowel dilated loops with fluid and mesenteric edema no transition point concerning for early small bowel obstruction against ileus, also mesenteric fat inflammation throughout: Mainly the rectosigmoid region, normal appendix also noted with splenic abnormality showing numerous areas of low attenuation, largest of 13 cm, ill-defined spleen, , rectosigmoid diverticulitis, or basilar groundglass opacifications, early pneumonia should be considered. They have already notified Dr. Fried regarding the suspected early small bowel obstruction, NG tube was requested to be placed, in the emergency room. 2 Attempts were made, however patient was screaming during the procedure, and the NG tube was curling in his throat rather than passing into the pharynx. NG tube procedure was held in the process of the patient refused. Patient was admitted for small bowel obstruction, and acute diverticulitis.. EKG in the ER shows normal sinus rhythm with multiple PVCs no ST segment elevation, magnesium has been replaced in the emergency room as well for hypomagnesemia. Consult was made with Dr. Enriquez, and cardiology, and Dr. Puentes for spleen lesions 10/07: Abdominal ultrasound showed splenomegaly. Hypoechoic areas within the spleen corresponding to the abnormalities noted on CT which shows cystic measurements by Hounsfield units. Findings could possibly be indicative of chronic splenic infarcts. Patient has been seen by general surgeon with plan for EGD and passing of a NG tube under sedation as multiple attempts of been successful. Conservative management is recommended at this time. Oncology is on consult. Patient complains of continued vomiting of bile. He states his pain is controlled. He denies passing any gas or bowel movement. 10/08: Patient had NG tube placed by Dr. Espinoza under sedation at EGD and patient has subsequently pulled this out stating that he didn't know it needed to stay in. He has again vomiting bile. We will order an abdominal x-ray. He is continued on Flagyl and Zosyn. He has been afebrile. Pulse ox 95% on room air. White count is at 2.3, hemoglobin stable at 12.1, platelet count is 466. Creatinine is 1.24. Patient is followed by cardiology for frequent PVCs. Mentation is to continue current therapy and they will follow on an as-needed basis Objective - Vital Signs Vital signs: Vital Signs Temp 98.3 F 10/08/17 07:18 Pulse 67 10/08/17 07:18 Resp 16 10/08/17 07:18 BP 137/68 10/08/17 07:18 Pulse Ox 93 L 10/08/17 07:18 Intake & Output 10/07/17 10/08/17 10/08/17 18:59 06:59 18:59 Intake Total 150 1350 Output Total 301 Balance 150 1049 Intake: IV 150 Intake, IV Titration 1350 Amount Piperacillin-Tazobactam 3 450 .375 gm In Dextrose/Water 1 50ml.bag @ 12.5 mls/hr IVPB Q8HR [facility] Rx#: [id number] Sodium Chloride 0.9% 1, 800 000 ml @ 100 mls/hr IV . Q10H [facility] Rx#:[id number] metroNIDAZOLE-NS PMX 500 100 mg In Saline 1 100ml.bag @ 100 mls/hr IVPB Q6HR [facility] Rx#:[id number] Output: Urine 300 Emesis 1 Other: Voiding Method Urinal Toilet Toilet Urinal # Voids 1 200 - Exam General appearance: cooperative, no acute distress - EENT Eyes: anicteric sclerae, EOMI, dentition normal, normal appearance ENT: NA/AT, normal oropharynx - Neck Neck: normal ROM - Respiratory Respiratory: bilateral: CTA, negative: diminished, dullness, rales - Cardiovascular Rhythm: regular Heart sounds: normal: S1, S2 Abnormal Heart Sounds: no systolic murmur, no diastolic murmur, no rub, no S3 Gallop, no S4 Gallop, no click, no other - Gastrointestinal General gastrointestinal: soft, splenomegaly, tenderness - Integumentary Integumentary: decreased turgor, normal - Neurologic Neurologic: CNII-XII intact - Musculoskeletal Musculoskeletal: gait normal - Psychiatric Psychiatric: A&O x's 3, appropriate affect - Labs CBC & Chem 7: 10/08/17 06:18 10/08/17 06:18 Labs: Abnormal Lab Results - Last 24 Hours (Table) 10/08/17 10/08/17 Range/Units 06:18 06:18 WBC 2.3 L (3.8-10.6) k/uL RBC 3.21 L (4.30-5.90) m/uL Hgb 12.1 L (13.0-17.5) gm/dL MCV 124.9 H (80.0-100.0) fL MCH 37.8 H (25.0-35.0) pg MCHC 30.3 L (31.0-37.0) g/dL RDW 20.3 H (11.5-15.5) % Plt Count 466 H (150-450) k/uL Lymphocytes # 0.4 L (1.0-4.8) k/uL Carbon Dioxide 21 L (22-30) mmol/L Glucose 114 H (74-99) mg/dL Total Protein 5.8 L (6.3-8.2) g/dL Albumin 3.4 L (3.5-5.0) g/dL Microbiology - Last 24 Hours (Table) 10/06/17 13:45 Blood Culture - Preliminary Blood No Growth after 24 hours Assessment and Plan Plan: 1. Acute abdominal pain with CAT scan finding suspicious of early small bowel obstruction, with no transition point seen in the CAT scan, patient needs an NG tube for decompression, 3 attempts were made in the emergency room, Dr. Enriquez has been consulted, no emergent plans for surgical intervention at this time, she wants the spleen abnormality to be worked up, IV hydration, IV antibiotics for the suspected acute diverticulitis in the rectal sigmoid area.. Negative urinalysis except for proteinuria. Consult with Dr. Espinoza appreciated. Status post EGD for NG tube placement and patient has removed. Abdominal x-rays ordered. 2. Acute Rectosigmoid diverticulitis: IV Levaquin and Flagyl along with fluid resuscitation will change to IV Zosyn and discontinue Levaquin. 3. Essential thrombocytosis: Follows with Dr. Moreno as outpatient on hydroxyurea 4. Anemia and pancytopenia, cannot rule out early myelodysplasia, however hydroxyurea can show this side effect, being monitored closely by oncology, oncology is on consult. 5. Abnormal red blood cell volume, patient has chronic EtOH, also with the suspected bone marrow pathology, 6. Moderate alcohol consumption, [place] drink daily we would monitor closely for delirium tremens, last alcohol intake approximately 10/05/2017 7. Multiple PVCs, and hypomagnesemia, thyroid function test to be obtained, cardiology consult appreciated. Cardiology is following on an as-needed basis. 8. Atherosclerotic heart disease and hypertensive cardiovascular disease, hydralazine 10 every 6 when necessary, by mouth meds on hold secondary to nothing by mouth status 9. Gout: Hold Zyloprim 300 mg a day while nothing by mouth. 10. Hypertension: Remain on metoprolol 25 mg twice a day along with hydralazine 10 mg IV every 6 when necessary, oral hydralazine 25 mg twice a day on hold while nothing by mouth. 11. Severe GERD/GI prophylaxis: Remain on pantoprazole. 12. Chronic neuropathy: Hold gabapentin 300 mg twice a day while nothing by mouth. 13. Mild memory loss: Mostly secondary to previous history of stroke. 14. DVT prophylaxis: Continue patient on Venodyne boots and knee-high JOSE LUIS hose , neurological prophylaxis with Lovenox. Discharge plan: Most likely return home Impression and plan of care have been directed as dictated by the signing physician. Alexandra Quiles nurse practitioner acting as scribe for signing physician.
--- NOTE | 2017-10-08 15:47 | P.PN ---
Subjective Progress Note Date: 10/08/17 Principal diagnosis: SBO Patient seen and evaluated in follow-up today. No acute events, bowel rest Objective - Vital Signs Vital signs: Vital Signs Temp 98.2 F 10/08/17 15:00 Pulse 78 10/08/17 15:00 Resp 16 10/08/17 15:00 BP 149/82 10/08/17 15:00 Pulse Ox 95 10/08/17 15:00 Intake & Output 10/07/17 10/08/17 10/08/17 18:59 06:59 18:59 Intake Total 150 1350 Output Total 301 200 Balance 150 1049 -200 Intake: IV 150 Intake, IV Titration 1350 Amount Piperacillin-Tazobactam 3 450 .375 gm In Dextrose/Water 1 50ml.bag @ 12.5 mls/hr IVPB Q8HR [facility] Rx#: [id number] Sodium Chloride 0.9% 1, 800 000 ml @ 100 mls/hr IV . Q10H JS Rx#:[id number] metroNIDAZOLE-NS PMX 500 100 mg In Saline 1 100ml.bag @ 100 mls/hr IVPB Q6HR JS Rx#:[id number] Output: Urine 300 200 Emesis 1 Other: Voiding Method Urinal Toilet Toilet Urinal # Voids 1 200 - Exam - Exam General appearance: cooperative, no acute distress - EENT Eyes: anicteric sclerae, EOMI, dentition normal, normal appearance ENT: NA/AT, normal oropharynx - Neck Neck: normal ROM - Respiratory Respiratory: bilateral: CTA, negative: diminished, dullness, rales - Cardiovascular Rhythm: regular Heart sounds: normal: S1, S2 Abnormal Heart Sounds: no systolic murmur, no diastolic murmur, no rub, no S3 Gallop, no S4 Gallop, no click, no other - Gastrointestinal General gastrointestinal: soft, splenomegaly, tenderness - Integumentary Integumentary: decreased turgor, normal - Neurologic Neurologic: CNII-XII intact - Musculoskeletal Musculoskeletal: gait normal - Psychiatric Psychiatric: A&O x's 3, appropriate affect - Labs CBC & Chem 7: 10/08/17 06:18 10/08/17 06:18 Labs: Abnormal Lab Results - Last 24 Hours (Table) 10/08/17 10/08/17 Range/Units 06:18 06:18 WBC 2.3 L (3.8-10.6) k/uL RBC 3.21 L (4.30-5.90) m/uL Hgb 12.1 L (13.0-17.5) gm/dL MCV 124.9 H (80.0-100.0) fL MCH 37.8 H (25.0-35.0) pg MCHC 30.3 L (31.0-37.0) g/dL RDW 20.3 H (11.5-15.5) % Plt Count 466 H (150-450) k/uL Lymphocytes # 0.4 L (1.0-4.8) k/uL Carbon Dioxide 21 L (22-30) mmol/L Glucose 114 H (74-99) mg/dL Total Protein 5.8 L (6.3-8.2) g/dL Albumin 3.4 L (3.5-5.0) g/dL Microbiology - Last 24 Hours (Table) 10/06/17 13:45 Blood Culture - Preliminary Blood No Growth after 24 hours Assessment and Plan Plan: Assessment and Recommendations: 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 - He was started on Hydrea, which was initially very effective, but had significant Myelosuprression > Hydrea changed to Anagrelide in Feb 2016 > tolerated poorly mostly 2nd to diarrhea > he stated however, diarrhea started well befor anagrelide !!. He was recommended to start Jakafi , which is is hesitent about due to concerns about side effects. He was restarted on hydrea and monitored closely with dosing modifications and frequent CBCs - Maintained on 2000mg of Hydroxyurea daily - Hydrea on Hold at this time secondary to probable Acute Small Bowel Obstruction - Hold Aspirin at this time too until improvement, in the event he requires surgical intervention - WBC - Stable today 2.3 2. Acute abdominal pain - CT Scan concerning for early small bowel obstruction - Conservative treatment - Endoscopy placed NG tube - Surgical Managment continuing bowel rest. 3. 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 Previous CTs scans reviewed for comparison, no acute intervention required from oncology standpoint 4. Diverticulitis: IV abx and hydration per primary medicine. 5. Leukopenia/Lymphopenia - Likely secondary to hydroxyurea, he has a history of wax and waining in his blood counts on Hydrea. - At this time hydroxyurea is on hold for acute situation, once resolved and blood counts recover will resume, dose at resuming will be determined based on CBC at that time. 6. ETOH Daily - Per primary team monitor
--- NOTE | 2017-10-08 17:16 | XR ---
EXAMINATION TYPE: XR abdomen 2V DATE OF EXAM: 10/08/2017 COMPARISON: 10/06/2017 HISTORY: Bowel obstruction. Abdominal pain TECHNIQUE: 2 upright and supine views were obtained. FINDINGS: There are some dilated air and fluid-filled small bowel loops in the mid abdomen. There are surgical clips in the right abdomen consistent with cholecystectomy and intestinal surgery. There ar e bilateral hip prosthesis. There is no sign of free air. There is a relative lack of large bowel gas . IMPRESSION: Dilated small bowel with fluid levels suggestive of mechanical small bowel obstruction. T his appears the same or worse than last exam.
[2017-10-08] MEDS: MORPHINE SULFATE 2 MG/ML SYRINGE IV PRN (20:09)
[2017-10-08] MEDS: hydrALAZINE HCL 20 MG/ML 1 ML VIAL IVP PRN (20:09)
[2017-10-09] MEDS: ONDANSETRON 4 MG/2 ML VIAL IVP PRN (00:14)
[2017-10-09] MEDS: PIPERACILLIN-TAZOBACTAM 3.375 GM in DEXTROSE/WATER 1 50ML.BAG IVPB SCH ×3 (03:45→21:31)
[2017-10-09] MEDS: metroNIDAZOLE-NS PMX 500 MG in SALINE 1 100ML.BAG IVPB SCH ×4 (05:09→23:16)
[2017-10-09] MEDS: MORPHINE SULFATE 2 MG/ML SYRINGE IV PRN (05:14)
[2017-10-09 07:49] LABS: Anisocytosis Moderate; HCT 44.2 % (39.0-53.0); HGB 13.2 gm/dL (13.0-17.5); Hypochromasia Marked; MCHC 29.8 g/dL (31.0-37.0); MCV 127.3 fL (80.0-100.0); Macrocytosis Marked; Mean Platelet Volume 7.5; Platelet Count 540 k/uL (150-450); Poikilocytosis Slight; RBC 3.47 m/uL (4.30-5.90); RDW 20.3 % (11.5-15.5); WBC 3.2 k/uL (3.8-10.6)
[2017-10-09 10:19] LABS: Basophils # (M) 0.03 k/uL (0-0.2); Lymphocytes # (M) 0.74 k/uL (1.0-4.8); Metamyelocytes # (M) 0.03 k/uL (0); Metamyelocytes % 1 %; Monocytes # (M) 0.38 k/uL (0-1.0); Myelocytes # (M) 0.03 k/uL (0); Myelocytes % 1 %; Neutrophils # (M) 2.05 k/uL (1.3-7.7); Neutrophils % (M) 64 %; Nucleated Red Blood Cells 1 /100 WBC (0-0); Total Cells Counted 200
[2017-10-09 10:20] LABS: Polychromasia Present
[2017-10-09] MEDS: PANTOPRAZOLE 40 MG/10 ML VIAL IVP SCH ×2 (10:28→21:31)
[2017-10-09] MEDS: HYDROXYUREA 500 MG CAP PO SCH ×4 (10:28→21:37)
[2017-10-09] MEDS: ENOXAPARIN 40 MG/0.4 ML SYRINGE SQ SCH (10:28)
[2017-10-09] MEDS: SODIUM CHLORIDE 0.9% 1,000 ML IV SCH ×2 (10:29→23:28)
--- NOTE | 2017-10-09 11:55 | P.PN ---
<Shanna Michelene M - Last Filed: 10/09/17 12:56> Subjective Progress Note Date: 10/09/17 81-year-old male seen this morning at the bedside with the . Patient is sitting up on the edge of the bed verbalizing he does not want surgery. Advanced directives were reviewed patient does want to be a full code. Patient reportedly had an episode of vomiting last night bile. again this morning vomited moderate amount of bile patient and at the bedside state they're interested in having another attempt at having a nasal gastric tube put down with sedation patient stated he didn't know it had to be left in for several days but is willing to give it another try Abdomen remains mildly distended with few hypoactive bowel tones on IV Zosyn and Flagyl. IV fluid for hydration Objective - Vital Signs Vital signs: Vital Signs Temp 97.9 F 10/09/17 07:47 Pulse 83 10/09/17 07:47 Resp 16 10/09/17 07:47 BP 155/82 10/09/17 07:47 Pulse Ox 92 L 10/09/17 07:47 Intake & Output 10/08/17 10/09/17 10/09/17 18:59 06:59 18:59 Intake Total 400 Output Total 200 200 Balance -200 200 Intake: Intake, IV Titration 400 Amount Sodium Chloride 0.9% 1, 400 000 ml @ 100 mls/hr IV . Q10H [facility] Rx#:[id number] Output: Urine 200 200 Other: Voiding Method Toilet Urinal Urinal Urinal # Emeses 2 - Exam Physical exam 81-year-old male up ambulating in the [place] cooperative oriented 3 Lungs clear adequate air movement Heart S1-S2 audible irregular Abdomen diffuse tenderness highly distended few hypoactive bowel tones no stool NPO reports a nausea sensation Extremities no edema - Labs CBC & Chem 7: 10/09/17 06:52 10/08/17 06:18 Labs: Abnormal Lab Results - Last 24 Hours (Table) 10/09/17 Range/Units 06:52 WBC 3.2 L (3.8-10.6) k/uL RBC 3.47 L (4.30-5.90) m/uL MCV 127.3 H (80.0-100.0) fL MCH 38.0 H (25.0-35.0) pg MCHC 29.8 L (31.0-37.0) g/dL RDW 20.3 H (11.5-15.5) % Plt Count 540 H (150-450) k/uL Lymphocytes # (Manual) 0.74 L (1.0-4.8) k/uL Metamyelocytes # (Man) 0.03 H (0) k/uL Myelocytes # (Manual) 0.03 H (0) k/uL Nucleated RBCs 1 H (0-0) /100 WBC Microbiology - Last 24 Hours (Table) 10/06/17 13:45 Blood Culture - Preliminary Blood No Growth after 48 hours Assessment and Plan Assessment: Impression Present on admission bilateral lower abdominal pain with a CAT scan abdomen and pelvis suspect early small bowel obstruction A recent admission in August 2017 severe abdominal pain suspect acute diverticulitis Memory loss 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 Severe esophageal reflex Thrombocytosis chronic History of a deviated septum inability to pass a nasogastric tube this admission EGD and colonoscopy in July 2016 report indicates small duodenal ulcer and diverticulosis EGD with nasal gastric tube placed under sedation patient remove the nasogastric tube became combative during the procedure 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 Isabel Michele nurse practitioner acting as scribe for signing physician. <Karon Enriquez N - Last Filed: 10/09/17 20:32> Objective - Vital Signs Vital signs: Vital Signs Temp 98.6 F 10/09/17 15:00 Pulse 56 L 10/09/17 15:00 Resp 12 10/09/17 15:00 BP 147/113 10/09/17 15:00 Pulse Ox 93 L 10/09/17 15:00 Intake & Output 10/09/17 10/09/17 10/10/17 06:59 18:59 06:59 Intake Total 400 1000 Output Total 200 220 Balance 200 780 Weight 90.71 kg Intake: IV 1000 Sodium Chloride 0.9% 1, 1000 000 ml @ 125 mls/hr IV . Q8H [facility] Rx#:[id number] Intake, IV Titration 400 Amount Sodium Chloride 0.9% 1, 400 000 ml @ 125 mls/hr IV . Q8H JS Rx#:[id number] Output: Urine 200 220 Other: Voiding Method Urinal Urinal # Voids 2 # Emeses 2 - Labs CBC & Chem 7: 10/09/17 06:52 10/08/17 06:18 Labs: Abnormal Lab Results - Last 24 Hours (Table) 10/09/17 Range/Units 06:52 WBC 3.2 L (3.8-10.6) k/uL RBC 3.47 L (4.30-5.90) m/uL MCV 127.3 H (80.0-100.0) fL MCH 38.0 H (25.0-35.0) pg MCHC 29.8 L (31.0-37.0) g/dL RDW 20.3 H (11.5-15.5) % Plt Count 540 H (150-450) k/uL Lymphocytes # (Manual) 0.74 L (1.0-4.8) k/uL Metamyelocytes # (Man) 0.03 H (0) k/uL Myelocytes # (Manual) 0.03 H (0) k/uL Nucleated RBCs 1 H (0-0) /100 WBC Microbiology - Last 24 Hours (Table) 10/06/17 13:45 Blood Culture - Preliminary Blood No Growth after 72 hours
--- NOTE | 2017-10-09 13:50 | P.PN ---
Subjective Progress Note Date: 10/09/17 This is an 81-year-old male patient of Dr. Sandra with a previous medical history significant for hypertension and hypertensive cardio vascular disease, hyperlipidemia, chronic kidney disease stage II, history of essential thrombocytosis, history of the severe spondylosis of the cervical spine,He was last admitted 08/25/2017 for orchitis with urinary tract infection along with acute diverticulitis on IV antibiotics then thereafter discharged to home, with oral levaquin and flagyl and did well. He now comes in to the emergency room secondary to abdominal pain bilateral lower abdomen and periumbilical region, one day duration. Patient denies any fever however he has increasing nausea and vomiting and abdominal distention, was subsequently seen in the emergency room patient denies any chest pain or palpitations or lightheadedness, no pleurisy, he has vomitus of bilious material, no fecaloid material. Abnormal history include prior kidney donor, colonoscopy in the past. No history of bowel obstruction in the past no history of bowel resection, he does have recurrent diverticular disease. Emergency room, he had workup that included a CAT scan, Computed tomography scan findings show suspected small bowel dilated loops with fluid and mesenteric edema no transition point concerning for early small bowel obstruction against ileus, also mesenteric fat inflammation throughout: Mainly the rectosigmoid region, normal appendix also noted with splenic abnormality showing numerous areas of low attenuation, largest of 13 cm, ill-defined spleen, , rectosigmoid diverticulitis, or basilar groundglass opacifications, early pneumonia should be considered. They have already notified Dr. Fried regarding the suspected early small bowel obstruction, NG tube was requested to be placed, in the emergency room. 2 Attempts were made, however patient was screaming during the procedure, and the NG tube was curling in his throat rather than passing into the pharynx. NG tube procedure was held in the process of the patient refused. Patient was admitted for small bowel obstruction, and acute diverticulitis.. EKG in the ER shows normal sinus rhythm with multiple PVCs no ST segment elevation, magnesium has been replaced in the emergency room as well for hypomagnesemia. Consult was made with Dr. Enriquez, and cardiology, and Dr. Puentes for spleen lesions 10/07: Abdominal ultrasound showed splenomegaly. Hypoechoic areas within the spleen corresponding to the abnormalities noted on CT which shows cystic measurements by Hounsfield units. Findings could possibly be indicative of chronic splenic infarcts. Patient has been seen by general surgeon with plan for EGD and passing of a NG tube under sedation as multiple attempts of been successful. Conservative management is recommended at this time. Oncology is on consult. Patient complains of continued vomiting of bile. He states his pain is controlled. He denies passing any gas or bowel movement. 10/08: Patient had NG tube placed by Dr. Enriquez under sedation at EGD and patient has subsequently pulled this out stating that he didn't know it needed to stay in. He has again vomiting bile. We will order an abdominal x-ray. He is continued on Flagyl and Zosyn. He has been afebrile. Pulse ox 95% on room air. White count is at 2.3, hemoglobin stable at 12.1, platelet count is 466. Creatinine is 1.24. Patient is followed by cardiology for frequent PVCs. Mentation is to continue current therapy and they will follow on an as-needed basis 10/09: His vital signs have been stable. He has been afebrile. White count is 3.2, hemoglobin 13.2, platelet count 540. Patient states he does not want to undergo surgery. He states he has not had emesis this morning.. No NG tube in place. He is on IV antibiotics the form of Flagyl and Zosyn. CODE STATUS full code. TPN will be ordered and PICC line ordered. Dietitian consult for TPN recommendations. Patient denies passing any gas. He states he walked around the hallway twice. Repeat abdominal x-rays ordered for tomorrow. Urine is noted PT colored. Urinalysis ordered. Repeat lab work tomorrow. Objective - Vital Signs Vital signs: Vital Signs Temp 97.9 F 10/09/17 07:47 Pulse 83 10/09/17 07:47 Resp 16 10/09/17 07:47 BP 155/82 10/09/17 07:47 Pulse Ox 92 L 10/09/17 07:47 Intake & Output 10/08/17 10/09/17 10/09/17 18:59 06:59 18:59 Intake Total 400 Output Total 200 200 Balance -200 200 Intake: Intake, IV Titration 400 Amount Sodium Chloride 0.9% 1, 400 000 ml @ 100 mls/hr IV . Q10H JS Rx#:[id number] Output: Urine 200 200 Other: Voiding Method Toilet Urinal Urinal Urinal # Emeses 2 - Exam General appearance: cooperative, no acute distress - EENT Eyes: anicteric sclerae, EOMI, dentition normal, normal appearance ENT: NA/AT, normal oropharynx - Neck Neck: normal ROM - Respiratory Respiratory: bilateral: CTA, negative: diminished, dullness, rales - Cardiovascular Rhythm: regular Heart sounds: normal: S1, S2 Abnormal Heart Sounds: no systolic murmur, no diastolic murmur, no rub, no S3 Gallop, no S4 Gallop, no click, no other - Gastrointestinal General gastrointestinal: soft, splenomegaly, tenderness - Integumentary Integumentary: decreased turgor, normal - Neurologic Neurologic: CNII-XII intact - Musculoskeletal Musculoskeletal: gait normal - Psychiatric Psychiatric: A&O x's 3, appropriate affect - Labs CBC & Chem 7: 10/09/17 06:52 10/08/17 06:18 Labs: Abnormal Lab Results - Last 24 Hours (Table) 10/09/17 Range/Units 06:52 WBC 3.2 L (3.8-10.6) k/uL RBC 3.47 L (4.30-5.90) m/uL MCV 127.3 H (80.0-100.0) fL MCH 38.0 H (25.0-35.0) pg MCHC 29.8 L (31.0-37.0) g/dL RDW 20.3 H (11.5-15.5) % Plt Count 540 H (150-450) k/uL Lymphocytes # (Manual) 0.74 L (1.0-4.8) k/uL Metamyelocytes # (Man) 0.03 H (0) k/uL Myelocytes # (Manual) 0.03 H (0) k/uL Nucleated RBCs 1 H (0-0) /100 WBC Microbiology - Last 24 Hours (Table) 10/06/17 13:45 Blood Culture - Preliminary Blood No Growth after 48 hours Assessment and Plan Plan: 1. Acute abdominal pain with CAT scan finding suspicious of early small bowel obstruction, with no transition point seen in the CAT scan, patient needs an NG tube for decompression, 3 attempts were made in the emergency room, Dr. Enriquez has been consulted, no emergent plans for surgical intervention at this time, she wants the spleen abnormality to be worked up, IV hydration, IV antibiotics for the suspected acute diverticulitis in the rectal sigmoid area.. Negative urinalysis except for proteinuria. Consult with Dr. Enriquez appreciated. Status post EGD for NG tube placement and patient has removed. Abdominal x-rays ordered. 2. Acute Rectosigmoid diverticulitis: IV Levaquin and Flagyl along with fluid resuscitation will change to IV Zosyn and discontinue Levaquin. 3. Essential thrombocytosis: Follows with Dr. Moreno as outpatient on hydroxyurea which is held. 4. Anemia and pancytopenia, cannot rule out early myelodysplasia, however hydroxyurea can show this side effect, being monitored closely by oncology, oncology is on consult. 5. Abnormal red blood cell volume, patient has chronic EtOH, also with the suspected bone marrow pathology, 6. Moderate alcohol consumption, [place] drink daily we would monitor closely for delirium tremens, last alcohol intake approximately 10/05/2017 7. Multiple PVCs, and hypomagnesemia, thyroid function test to be obtained, cardiology consult appreciated. Cardiology is following on an as-needed basis. 8. Atherosclerotic heart disease and hypertensive cardiovascular disease, hydralazine 10 every 6 when necessary, by mouth meds on hold secondary to nothing by mouth status 9. Gout: Hold Zyloprim 300 mg a day while nothing by mouth. 10. Hypertension: Remain on metoprolol 25 mg twice a day along with hydralazine 10 mg IV every 6 when necessary, oral hydralazine 25 mg twice a day on hold while nothing by mouth. 11. Severe GERD/GI prophylaxis: Remain on pantoprazole. 12. Chronic neuropathy: Hold gabapentin 300 mg twice a day while nothing by mouth. 13. Mild memory loss: Mostly secondary to previous history of stroke. 14. DVT prophylaxis: Continue patient on Venodyne boots and knee-high JOSE LUIS hose , neurological prophylaxis with Lovenox. 15. Severe protein calorie malnutrition due to nothing by mouth status and vomiting. PICC line ordered and TPN to be started. Discharge plan: Most likely return home Impression and plan of care have been directed as dictated by the signing physician. Alexandra Quiles nurse practitioner acting as scribe for signing physician.
--- NOTE | 2017-10-09 17:06 | P.PN ---
Subjective Progress Note Date: 10/09/17 Principal diagnosis: SBO Patient seen and evaluated in follow-up today. He continues to have episodes of emesis, and abdominal discomfort. Remains firm and distended. Objective - Vital Signs Vital signs: Vital Signs Temp 97.9 F 10/09/17 07:47 Pulse 83 10/09/17 07:47 Resp 16 10/09/17 07:47 BP 155/82 10/09/17 07:47 Pulse Ox 92 L 10/09/17 07:47 Intake & Output 10/08/17 10/09/17 10/09/17 18:59 06:59 18:59 Intake Total 400 Output Total 200 200 Balance -200 200 Intake: Intake, IV Titration 400 Amount Sodium Chloride 0.9% 1, 400 000 ml @ 100 mls/hr IV . Q10H JS Rx#:[id number] Output: Urine 200 200 Other: Voiding Method Toilet Urinal Urinal Urinal # Emeses 2 - Exam - Exam General appearance: cooperative, no acute distress - EENT Eyes: anicteric sclerae, EOMI, dentition normal, normal appearance ENT: NA/AT, normal oropharynx - Neck Neck: normal ROM - Respiratory Respiratory: bilateral: CTA, negative: diminished, dullness, rales - Cardiovascular Rhythm: regular Heart sounds: normal: S1, S2 Abnormal Heart Sounds: no systolic murmur, no diastolic murmur, no rub, no S3 Gallop, no S4 Gallop, no click, no other - Gastrointestinal General gastrointestinal: soft, splenomegaly, tenderness, Distended, hypoactive today - Integumentary Integumentary: decreased turgor, normal - Neurologic Neurologic: CNII-XII intact - Musculoskeletal Musculoskeletal: gait normal - Psychiatric Psychiatric: A&O x's 3, appropriate affect - Labs CBC & Chem 7: 10/09/17 06:52 10/08/17 06:18 Labs: Abnormal Lab Results - Last 24 Hours (Table) 10/09/17 Range/Units 06:52 WBC 3.2 L (3.8-10.6) k/uL RBC 3.47 L (4.30-5.90) m/uL MCV 127.3 H (80.0-100.0) fL MCH 38.0 H (25.0-35.0) pg MCHC 29.8 L (31.0-37.0) g/dL RDW 20.3 H (11.5-15.5) % Plt Count 540 H (150-450) k/uL Lymphocytes # (Manual) 0.74 L (1.0-4.8) k/uL Metamyelocytes # (Man) 0.03 H (0) k/uL Myelocytes # (Manual) 0.03 H (0) k/uL Nucleated RBCs 1 H (0-0) /100 WBC Microbiology - Last 24 Hours (Table) 10/06/17 13:45 Blood Culture - Preliminary Blood No Growth after 48 hours Assessment and Plan Plan: Assessment and Recommendations: 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 - He was started on Hydrea, which was initially very effective, but had significant Myelosuprression > Hydrea changed to Anagrelide in Feb 2016 > tolerated poorly mostly 2nd to diarrhea > he stated however, diarrhea started well befor anagrelide !!. He was recommended to start Jakafi , which is is hesitent about due to concerns about side effects. He was restarted on hydrea and monitored closely with dosing modifications and frequent CBCs - Maintained on 2000mg of Hydroxyurea daily - Hydrea on Hold at this time secondary to probable Acute Small Bowel Obstruction - Hold Aspirin at this time too until improvement, in the event he requires surgical intervention - WBC - has improved off Hydrea 2. Acute abdominal pain - CT Scan concerning for early small bowel obstruction - Conservative treatment - Endoscopy placed NG tube - Surgical Managment continuing bowel rest. Patient expresses today he does not want surgical intervention. 3. 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 Previous CTs scans reviewed for comparison, no acute intervention required from oncology standpoint 4. Diverticulitis: IV abx and hydration per primary medicine. 5. Leukopenia/Lymphopenia - Likely secondary to hydroxyurea, he has a history of wax and waining in his blood counts on Hydrea. - At this time hydroxyurea is on hold for acute situation, once resolved and blood counts recover will resume, dose at resuming will be determined based on CBC at that time. - COntinue to hold Hydroxyurea. 6. ETOH Daily - Per primary team monitor
--- NOTE | 2017-10-09 20:33 | P.PN ---
Progress Note - Text Progress Note Date: 10/09/17 Patient seen and reevaluated this evening. He had a large bowel movement including large passage of flatus. His initial right lower quadrant abdominal pain is now moderately improved. He has an appetite. Bowel obstruction clinically resolved. PLAN: 1. Liquid diet tonight. 2. Reassess in the morning. 3. No need for NG tube at this time. 4. Patient may be clinically clear for discharge once tolerating liquid diet.
[2017-10-10] MEDS: PIPERACILLIN-TAZOBACTAM 3.375 GM in DEXTROSE/WATER 1 50ML.BAG IVPB SCH ×3 (03:20→22:21)
[2017-10-10] MEDS: metroNIDAZOLE-NS PMX 500 MG in SALINE 1 100ML.BAG IVPB SCH ×4 (05:15→23:52)
[2017-10-10 07:25] LABS: INR 1.6 (<1.2); Prothrombin Time 14.5 sec (9.0-12.0)
[2017-10-10 07:32] LABS: Anisocytosis Slight; HCT 41.2 % (39.0-53.0); HGB 11.9 gm/dL (13.0-17.5); Hypochromasia Marked; MCH 37.6 pg (25.0-35.0); MCHC 28.9 g/dL (31.0-37.0); MCV 129.9 fL (80.0-100.0); Macrocytosis Marked; Mean Platelet Volume 7.5; Platelet Count 608 k/uL (150-450); Poikilocytosis Slight; RBC 3.17 m/uL (4.30-5.90); WBC 4.9 k/uL (3.8-10.6)
[2017-10-10 07:37] LABS: Albumin 3.2 g/dL (3.5-5.0); Calcium 8.6 mg/dL (8.4-10.2); Potassium 4.3 mmol/L (3.5-5.1); Total Bilirubin 0.9 mg/dL (0.2-1.3); Total Protein 5.6 g/dL (6.3-8.2)
[2017-10-10] MEDS: ENOXAPARIN 40 MG/0.4 ML SYRINGE SQ SCH ×2 (08:24→14:31)
[2017-10-10] MEDS: HYDROXYUREA 500 MG CAP PO SCH ×4 (08:24→18:58)
--- NOTE | 2017-10-10 08:34 | XR ---
EXAMINATION TYPE: XR abdomen 2V DATE OF EXAM: 10/10/2017 COMPARISON: 10/08/2017 HISTORY: Abdominal pain TECHNIQUE: One view abdominal series FINDINGS: The osseous structures are intact. There are persistent dilated bowel loops with air-fluid levels. Rolon rgical clips are noted. Hypertrophic and degenerative change of the spine. Basilar atelectasis or inf iltrate stable. Previous surgery involving the hips. There is air within the rectum. IMPRESSION: 1. Persistent dilated small bowel loops with air-fluid levels. Correlate for partial bowel obstructio n. 2. Bibasilar infiltrate.
[2017-10-10] MEDS: PANTOPRAZOLE 40 MG/10 ML VIAL IVP SCH ×2 (09:52→19:59)
[2017-10-10] MEDS: SODIUM CHLORIDE 0.9% 1,000 ML IV SCH ×3 (10:00→23:53)
--- NOTE | 2017-10-10 10:20 | P.PN ---
<Shanna Michelene M - Last Filed: 10/10/17 10:16> Subjective Progress Note Date: 10/10/17 81-year-old male seen up ambulating in the hallway with jennifer cooperative oriented 3 states he has had several loose stools some of them incontinent reports right lower quadrant abdominal pain improved abdomen less distended. Patient is anxious to be discharged reportedly tolerating clear to full liquid diet Objective - Vital Signs Vital signs: Vital Signs Temp 97.4 F L 10/10/17 07:20 Pulse 69 10/10/17 07:20 Resp 18 10/10/17 07:20 BP 130/81 10/10/17 07:20 Pulse Ox 96 10/10/17 07:20 Intake & Output 10/09/17 10/10/17 10/10/17 18:59 06:59 18:59 Intake Total 1000 1175 Output Total 220 Balance 780 1175 Weight 90.71 kg Intake: IV 1000 250 Sodium Chloride 0.9% 1, 1000 250 000 ml @ 125 mls/hr IV . Q8H JS Rx#:[id number] Intake, IV Titration 925 Amount Piperacillin-Tazobactam 3 50 .375 gm In Dextrose/Water 1 50ml.bag @ 12.5 mls/hr IVPB Q8H JS Rx#: [id number] Sodium Chloride 0.9% 1, 875 000 ml @ 125 mls/hr IV . Q8H JS Rx#:[id number] Output: Urine 220 Other: Voiding Method Urinal # Voids 2 - Exam Physical exam 81-year-old male up ambulating in the [place] cooperative oriented 3 Lungs clear adequate air movement Heart S1-S2 audible irregular Abdomen less distended states the abdominal discomfort gone on "has had several loose stools tolerating clear to full liquid diet urinating no difficulty Extremities no edema - Labs CBC & Chem 7: 10/10/17 06:54 10/10/17 06:54 Labs: Abnormal Lab Results - Last 24 Hours (Table) 10/09/17 10/10/17 10/10/17 Range/Units 06:52 06:54 06:54 RBC 3.17 L (4.30-5.90) m/uL Hgb 11.9 L (13.0-17.5) gm/dL MCV 129.9 H (80.0-100.0) fL MCH 37.6 H (25.0-35.0) pg MCHC 28.9 L (31.0-37.0) g/dL RDW 20.0 H (11.5-15.5) % Plt Count 608 H (150-450) k/uL Lymphocytes # (Manual) 0.74 L (1.0-4.8) k/uL Metamyelocytes # (Man) 0.03 H (0) k/uL Myelocytes # (Manual) 0.03 H (0) k/uL Nucleated RBCs 1 H (0-0) /100 WBC PT (9.0-12.0) sec INR (<1.2) Chloride 113 H (98-107) mmol/L Carbon Dioxide 16 L (22-30) mmol/L Creatinine 1.33 H (0.66-1.25) mg/dL Alkaline Phosphatase 32 L (38-126) U/L Total Protein 5.6 L (6.3-8.2) g/dL Albumin 3.2 L (3.5-5.0) g/dL 10/10/17 Range/Units 06:54 RBC (4.30-5.90) m/uL Hgb (13.0-17.5) gm/dL MCV (80.0-100.0) fL MCH (25.0-35.0) pg MCHC (31.0-37.0) g/dL RDW (11.5-15.5) % Plt Count (150-450) k/uL Lymphocytes # (Manual) (1.0-4.8) k/uL Metamyelocytes # (Man) (0) k/uL Myelocytes # (Manual) (0) k/uL Nucleated RBCs (0-0) /100 WBC PT 14.5 H (9.0-12.0) sec INR 1.6 H (<1.2) Chloride (98-107) mmol/L Carbon Dioxide (22-30) mmol/L Creatinine (0.66-1.25) mg/dL Alkaline Phosphatase (38-126) U/L Total Protein (6.3-8.2) g/dL Albumin (3.5-5.0) g/dL Microbiology - Last 24 Hours (Table) 10/06/17 13:45 Blood Culture - Preliminary Blood No Growth after 72 hours Assessment and Plan Assessment: Impression Present on admission bilateral lower abdominal pain with a CAT scan abdomen and pelvis suspect early small bowel obstruction A recent admission in August 2017 severe abdominal pain suspect acute diverticulitis Memory loss 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 Severe esophageal reflex Thrombocytosis chronic History of a deviated septum inability to pass a nasogastric tube this admission EGD and colonoscopy in July 2016 report indicates small duodenal ulcer and diverticulosis EGD with nasal gastric tube placed under sedation patient remove the nasogastric tube became combative during the procedure 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 Isabel Michele nurse practitioner acting as scribe for signing physician. <Karon Enriquez N - Last Filed: 10/10/17 16:08> Objective - Vital Signs Vital signs: Vital Signs Temp 97.7 F 10/10/17 14:32 Pulse 93 10/10/17 14:32 Resp 16 10/10/17 14:32 BP 132/74 10/10/17 14:32 Pulse Ox 95 10/10/17 14:32 Intake & Output 10/09/17 10/10/17 10/10/17 18:59 06:59 18:59 Intake Total 1000 1175 2000 Output Total 220 4 Balance 780 1175 1995 Weight 90.71 kg 90.71 kg Intake: IV 6851 870 4224 Sodium Chloride 0.9% 1, 2609 298 5559 000 ml @ 125 mls/hr IV . Q8H JS Rx#:[id number] Intake, IV Titration 925 Amount Piperacillin-Tazobactam 3 50 .375 gm In Dextrose/Water 1 50ml.bag @ 12.5 mls/hr IVPB Q8H JS Rx#: [id number] Sodium Chloride 0.9% 1, 875 000 ml @ 125 mls/hr IV . Q8H JS Rx#:[id number] Oral 1000 Output: Urine 220 Urine/Stool Mix 4 Other: Voiding Method Urinal # Voids 2 - Labs CBC & Chem 7: 10/10/17 06:54 10/10/17 06:54 Labs: Abnormal Lab Results - Last 24 Hours (Table) 10/10/17 10/10/17 10/10/17 Range/Units 06:54 06:54 06:54 RBC 3.17 L (4.30-5.90) m/uL Hgb 11.9 L (13.0-17.5) gm/dL MCV 129.9 H (80.0-100.0) fL MCH 37.6 H (25.0-35.0) pg MCHC 28.9 L (31.0-37.0) g/dL RDW 20.0 H (11.5-15.5) % Plt Count 608 H (150-450) k/uL PT 14.5 H (9.0-12.0) sec INR 1.6 H (<1.2) Chloride 113 H (98-107) mmol/L Carbon Dioxide 16 L (22-30) mmol/L Creatinine 1.33 H (0.66-1.25) mg/dL Alkaline Phosphatase 32 L (38-126) U/L Total Protein 5.6 L (6.3-8.2) g/dL Albumin 3.2 L (3.5-5.0) g/dL Urine Protein (Negative) Urine Ketones (Negative) Urine Bilirubin (Negative) Ur Leukocyte Esterase (Negative) Amorphous Sediment (None) /hpf Urine Mucus (None) /hpf 10/10/17 Range/Units 14:20 RBC (4.30-5.90) m/uL Hgb (13.0-17.5) gm/dL MCV (80.0-100.0) fL MCH (25.0-35.0) pg MCHC (31.0-37.0) g/dL RDW (11.5-15.5) % Plt Count (150-450) k/uL PT (9.0-12.0) sec INR (<1.2) Chloride (98-107) mmol/L Carbon Dioxide (22-30) mmol/L Creatinine (0.66-1.25) mg/dL Alkaline Phosphatase (38-126) U/L Total Protein (6.3-8.2) g/dL Albumin (3.5-5.0) g/dL Urine Protein 1+ H (Negative) Urine Ketones 2+ H (Negative) Urine Bilirubin 1+ H (Negative) Ur Leukocyte Esterase Small H (Negative) Amorphous Sediment Rare H (None) /hpf Urine Mucus Rare H (None) /hpf Microbiology - Last 24 Hours (Table) 10/06/17 13:45 Blood Culture - Preliminary Blood No Growth after 96 hours
[2017-10-10 14:33] VITALS: RESP 16
[2017-10-10 14:44] LABS: Amorphous Sediment,Urine Rare /hpf; Appearance,Urine Clear (Clear); Bilirubin,Urine 1+ (Negative); Blood,Urine Negative (Negative); Color,Urine Light Red; Glucose,Urine (UA) Negative (Negative); Ketones,Urine 2+ (Negative); Leukocyte Esterase,Urine Small (Negative); Mucus,Urine Rare /hpf; Nitrite,Urine Negative (Negative); PH, Urine 5.5 (5.0-8.0); Protein,Urine 1+ (Negative); Specific Gravity,Urine 1.026 (1.001-1.035); Urobilinogen,Urine <2.0 mg/dL (<2.0); WBC,Urine 1 /hpf (0-5)
--- NOTE | 2017-10-10 15:11 | P.PN ---
Subjective Progress Note Date: 10/10/17 This is an 81-year-old male patient of Dr. Sandra with a previous medical history significant for hypertension and hypertensive cardio vascular disease, hyperlipidemia, chronic kidney disease stage II, history of essential thrombocytosis, history of the severe spondylosis of the cervical spine,He was last admitted 08/25/2017 for orchitis with urinary tract infection along with acute diverticulitis on IV antibiotics then thereafter discharged to home, with oral levaquin and flagyl and did well. He now comes in to the emergency room secondary to abdominal pain bilateral lower abdomen and periumbilical region, one day duration. Patient denies any fever however he has increasing nausea and vomiting and abdominal distention, was subsequently seen in the emergency room patient denies any chest pain or palpitations or lightheadedness, no pleurisy, he has vomitus of bilious material, no fecaloid material. Abnormal history include prior kidney donor, colonoscopy in the past. No history of bowel obstruction in the past no history of bowel resection, he does have recurrent diverticular disease. Emergency room, he had workup that included a CAT scan, Computed tomography scan findings show suspected small bowel dilated loops with fluid and mesenteric edema no transition point concerning for early small bowel obstruction against ileus, also mesenteric fat inflammation throughout: Mainly the rectosigmoid region, normal appendix also noted with splenic abnormality showing numerous areas of low attenuation, largest of 13 cm, ill-defined spleen, , rectosigmoid diverticulitis, or basilar groundglass opacifications, early pneumonia should be considered. They have already notified Dr. Fried regarding the suspected early small bowel obstruction, NG tube was requested to be placed, in the emergency room. 2 Attempts were made, however patient was screaming during the procedure, and the NG tube was curling in his throat rather than passing into the pharynx. NG tube procedure was held in the process of the patient refused. Patient was admitted for small bowel obstruction, and acute diverticulitis.. EKG in the ER shows normal sinus rhythm with multiple PVCs no ST segment elevation, magnesium has been replaced in the emergency room as well for hypomagnesemia. Consult was made with Dr. Enriquez, and cardiology, and Dr. Puentes for spleen lesions 10/07: Abdominal ultrasound showed splenomegaly. Hypoechoic areas within the spleen corresponding to the abnormalities noted on CT which shows cystic measurements by Hounsfield units. Findings could possibly be indicative of chronic splenic infarcts. Patient has been seen by general surgeon with plan for EGD and passing of a NG tube under sedation as multiple attempts of been successful. Conservative management is recommended at this time. Oncology is on consult. Patient complains of continued vomiting of bile. He states his pain is controlled. He denies passing any gas or bowel movement. 10/08: Patient had NG tube placed by Dr. Enriquez under sedation at EGD and patient has subsequently pulled this out stating that he didn't know it needed to stay in. He has again vomiting bile. We will order an abdominal x-ray. He is continued on Flagyl and Zosyn. He has been afebrile. Pulse ox 95% on room air. White count is at 2.3, hemoglobin stable at 12.1, platelet count is 466. Creatinine is 1.24. Patient is followed by cardiology for frequent PVCs. Mentation is to continue current therapy and they will follow on an as-needed basis 10/09: His vital signs have been stable. He has been afebrile. White count is 3.2, hemoglobin 13.2, platelet count 540. Patient states he does not want to undergo surgery. He states he has not had emesis this morning.. No NG tube in place. He is on IV antibiotics the form of Flagyl and Zosyn. CODE STATUS full code. TPN will be ordered and PICC line ordered. Dietitian consult for TPN recommendations. Patient denies passing any gas. He states he walked around the hallway twice. Repeat abdominal x-rays ordered for tomorrow. Urine is noted PT colored. Urinalysis ordered. Repeat lab work tomorrow. 10/10: Patient is tolerating clear liquids and PICC line placement will be canceled. Dr. Fried has cleared the patient for discharge if he continues to tolerate liquids. Abdominal pain is improving. He states he is having lots of bowel movements that are liquid since last evening. Diet will be advanced to a fall. Anticipate discharge home tomorrow. Objective - Vital Signs Vital signs: Vital Signs Temp 97.4 F L 10/10/17 07:20 Pulse 69 10/10/17 07:20 Resp 18 10/10/17 07:20 BP 130/81 10/10/17 07:20 Pulse Ox 96 10/10/17 07:20 Intake & Output 10/09/17 10/10/17 10/10/17 18:59 06:59 18:59 Intake Total 1000 1175 Output Total 220 Balance 780 1175 Weight 90.71 kg Intake: IV 1000 250 Sodium Chloride 0.9% 1, 1000 250 000 ml @ 125 mls/hr IV . Q8H JS Rx#:[id number] Intake, IV Titration 925 Amount Piperacillin-Tazobactam 3 50 .375 gm In Dextrose/Water 1 50ml.bag @ 12.5 mls/hr IVPB Q8H JS Rx#: [id number] Sodium Chloride 0.9% 1, 875 000 ml @ 125 mls/hr IV . Q8H JS Rx#:[id number] Output: Urine 220 Other: Voiding Method Urinal # Voids 2 - Exam General appearance: cooperative, no acute distress - EENT Eyes: anicteric sclerae, EOMI, dentition normal, normal appearance ENT: NA/AT, normal oropharynx - Neck Neck: normal ROM - Respiratory Respiratory: bilateral: CTA, negative: diminished, dullness, rales - Cardiovascular Rhythm: regular Heart sounds: normal: S1, S2 Abnormal Heart Sounds: no systolic murmur, no diastolic murmur, no rub, no S3 Gallop, no S4 Gallop, no click, no other - Gastrointestinal General gastrointestinal: soft, splenomegaly, nontender - Integumentary Integumentary: decreased turgor, normal - Neurologic Neurologic: CNII-XII intact - Musculoskeletal Musculoskeletal: gait normal - Psychiatric Psychiatric: A&O x's 3, appropriate affect - Labs CBC & Chem 7: 10/10/17 06:54 10/10/17 06:54 Labs: Abnormal Lab Results - Last 24 Hours (Table) 10/10/17 10/10/17 10/10/17 Range/Units 06:54 06:54 06:54 RBC 3.17 L (4.30-5.90) m/uL Hgb 11.9 L (13.0-17.5) gm/dL MCV 129.9 H (80.0-100.0) fL MCH 37.6 H (25.0-35.0) pg MCHC 28.9 L (31.0-37.0) g/dL RDW 20.0 H (11.5-15.5) % Plt Count 608 H (150-450) k/uL PT 14.5 H (9.0-12.0) sec INR 1.6 H (<1.2) Chloride 113 H (98-107) mmol/L Carbon Dioxide 16 L (22-30) mmol/L Creatinine 1.33 H (0.66-1.25) mg/dL Alkaline Phosphatase 32 L (38-126) U/L Total Protein 5.6 L (6.3-8.2) g/dL Albumin 3.2 L (3.5-5.0) g/dL Microbiology - Last 24 Hours (Table) 10/06/17 13:45 Blood Culture - Preliminary Blood No Growth after 72 hours Assessment and Plan Plan: 1. Acute abdominal pain with CAT scan finding suspicious of early small bowel obstruction, with no transition point seen in the CAT scan, patient needs an NG tube for decompression, 3 attempts were made in the emergency room, Dr. Enriquez has been consulted, no emergent plans for surgical intervention at this time, she wants the spleen abnormality to be worked up, IV hydration, IV antibiotics for the suspected acute diverticulitis in the rectal sigmoid area.. Negative urinalysis except for proteinuria. Consult with Dr. Enriquez appreciated. Status post EGD for NG tube placement and patient has removed. Abdominal x-rays ordered for tomorrow 2. Acute Rectosigmoid diverticulitis: IV Levaquin and Flagyl along with fluid resuscitation will change to IV Zosyn and discontinue Levaquin. 3. Essential thrombocytosis: Follows with Dr. Moreno as outpatient on hydroxyurea which is held. 4. Anemia and pancytopenia, cannot rule out early myelodysplasia, however hydroxyurea can show this side effect, being monitored closely by oncology, oncology is on consult. 5. Abnormal red blood cell volume, patient has chronic EtOH, also with the suspected bone marrow pathology, 6. Moderate alcohol consumption, [place] drink daily we would monitor closely for delirium tremens, last alcohol intake approximately 10/05/2017 7. Multiple PVCs, and hypomagnesemia, thyroid function test to be obtained, cardiology consult appreciated. Cardiology is following on an as-needed basis. 8. Atherosclerotic heart disease and hypertensive cardiovascular disease, hydralazine 10 every 6 when necessary, by mouth meds on hold secondary to nothing by mouth status 9. Gout: Hold Zyloprim 300 mg a day while nothing by mouth. 10. Hypertension: Remain on metoprolol 25 mg twice a day along with hydralazine 10 mg IV every 6 when necessary, oral hydralazine 25 mg twice a day on hold while nothing by mouth. 11. Severe GERD/GI prophylaxis: Remain on pantoprazole. 12. Chronic neuropathy: Hold gabapentin 300 mg twice a day while nothing by mouth. 13. Mild memory loss: Mostly secondary to previous history of stroke. 14. DVT prophylaxis: Continue patient on Venodyne boots and knee-high JOSE LUIS hose , neurological prophylaxis with Lovenox. 15. Severe protein calorie malnutrition due to nothing by mouth status and vomiting. PICC line ordered and TPN to be started. Discharge plan: Home on Saturday Impression and plan of care have been directed as dictated by the signing physician. Alexandra Quiles nurse practitioner acting as scribe for signing physician.
--- NOTE | 2017-10-10 16:59 | P.PN ---
Subjective Progress Note Date: 10/10/17 Principal diagnosis: SBO Patient seen and evaluated in follow-up today. No emesis today, tolerating clear liquids and positive BM Objective - Vital Signs Vital signs: Vital Signs Temp 97.7 F 10/10/17 14:32 Pulse 93 10/10/17 14:32 Resp 16 10/10/17 14:32 BP 132/74 10/10/17 14:32 Pulse Ox 95 10/10/17 14:32 Intake & Output 10/09/17 10/10/17 10/10/17 18:59 06:59 18:59 Intake Total 1000 1175 2000 Output Total 220 4 Balance 780 1175 1995 Weight 90.71 kg 90.71 kg Intake: IV 3425 781 0839 Sodium Chloride 0.9% 1, 0102 187 2947 000 ml @ 125 mls/hr IV . Q8H JS Rx#:[id number] Intake, IV Titration 925 Amount Piperacillin-Tazobactam 3 50 .375 gm In Dextrose/Water 1 50ml.bag @ 12.5 mls/hr IVPB Q8H JS Rx#: [id number] Sodium Chloride 0.9% 1, 875 000 ml @ 125 mls/hr IV . Q8H JS Rx#:[id number] Oral 1000 Output: Urine 220 Urine/Stool Mix 4 Other: Voiding Method Urinal # Voids 2 - Exam - Exam General appearance: cooperative, no acute distress - EENT Eyes: anicteric sclerae, EOMI, dentition normal, normal appearance ENT: NA/AT, normal oropharynx - Neck Neck: normal ROM - Respiratory Respiratory: bilateral: CTA, negative: diminished, dullness, rales - Cardiovascular Rhythm: regular Heart sounds: normal: S1, S2 Abnormal Heart Sounds: no systolic murmur, no diastolic murmur, - Gastrointestinal General gastrointestinal: soft, splenomegaly, tenderness, Distended, hypoactive today - Integumentary Integumentary: decreased turgor, normal - Neurologic Neurologic: CNII-XII intact - Musculoskeletal Musculoskeletal: gait normal - Psychiatric Psychiatric: A&O x's 3, appropriate affect - Labs CBC & Chem 7: 10/10/17 06:54 10/10/17 06:54 Labs: Abnormal Lab Results - Last 24 Hours (Table) 10/10/17 10/10/17 10/10/17 Range/Units 06:54 06:54 06:54 RBC 3.17 L (4.30-5.90) m/uL Hgb 11.9 L (13.0-17.5) gm/dL MCV 129.9 H (80.0-100.0) fL MCH 37.6 H (25.0-35.0) pg MCHC 28.9 L (31.0-37.0) g/dL RDW 20.0 H (11.5-15.5) % Plt Count 608 H (150-450) k/uL PT 14.5 H (9.0-12.0) sec INR 1.6 H (<1.2) Chloride 113 H (98-107) mmol/L Carbon Dioxide 16 L (22-30) mmol/L Creatinine 1.33 H (0.66-1.25) mg/dL Alkaline Phosphatase 32 L (38-126) U/L Total Protein 5.6 L (6.3-8.2) g/dL Albumin 3.2 L (3.5-5.0) g/dL Urine Protein (Negative) Urine Ketones (Negative) Urine Bilirubin (Negative) Ur Leukocyte Esterase (Negative) Amorphous Sediment (None) /hpf Urine Mucus (None) /hpf 10/10/17 Range/Units 14:20 RBC (4.30-5.90) m/uL Hgb (13.0-17.5) gm/dL MCV (80.0-100.0) fL MCH (25.0-35.0) pg MCHC (31.0-37.0) g/dL RDW (11.5-15.5) % Plt Count (150-450) k/uL PT (9.0-12.0) sec INR (<1.2) Chloride (98-107) mmol/L Carbon Dioxide (22-30) mmol/L Creatinine (0.66-1.25) mg/dL Alkaline Phosphatase (38-126) U/L Total Protein (6.3-8.2) g/dL Albumin (3.5-5.0) g/dL Urine Protein 1+ H (Negative) Urine Ketones 2+ H (Negative) Urine Bilirubin 1+ H (Negative) Ur Leukocyte Esterase Small H (Negative) Amorphous Sediment Rare H (None) /hpf Urine Mucus Rare H (None) /hpf Microbiology - Last 24 Hours (Table) 10/06/17 13:45 Blood Culture - Preliminary Blood No Growth after 96 hours Assessment and Plan Plan: Assessment and Recommendations: 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 - He was started on Hydrea, which was initially very effective, but had significant Myelosuprression > Hydrea changed to Anagrelide in Feb 2016 > tolerated poorly mostly 2nd to diarrhea > he stated however, diarrhea started well befor anagrelide !!. He was recommended to start Jakafi , which is is hesitent about due to concerns about side effects. He was restarted on hydrea and monitored closely with dosing modifications and frequent CBCs - Maintained on 2000mg of Hydroxyurea daily - Hydrea on Hold at this time secondary to probable Acute Small Bowel Obstruction - Hold Aspirin at this time too until improvement, in the event he requires surgical intervention - WBC - has improved off Hydrea, continue to hold at this time 2. Acute abdominal pain - CT Scan concerning for early small bowel obstruction - Conservative treatment - No NG tube, tolerating clear liquids no mesis - Surgical Managment continuing bowel rest. Patient expresses today he does not want surgical intervention. 3. 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 Previous CTs scans reviewed for comparison, no acute intervention required from oncology standpoint 4. Diverticulitis: IV abx and hydration per primary medicine. 5. Leukopenia/Lymphopenia - Likely secondary to hydroxyurea, he has a history of wax and waining in his blood counts on Hydrea. - At this time hydroxyurea is on hold for acute situation, once resolved and blood counts recover will resume, dose at resuming will be determined based on CBC at that time. - COntinue to hold Hydroxyurea. 6. ETOH Daily - Per primary team monitor
[2017-10-11] MEDS: PIPERACILLIN-TAZOBACTAM 3.375 GM in DEXTROSE/WATER 1 50ML.BAG IVPB SCH ×2 (04:25→12:43)
[2017-10-11] MEDS: metroNIDAZOLE-NS PMX 500 MG in SALINE 1 100ML.BAG IVPB SCH ×2 (05:16→12:42)
[2017-10-11] MEDS: HYDROXYUREA 500 MG CAP PO SCH ×4 (07:56→22:04)
[2017-10-11] MEDS: PANTOPRAZOLE 40 MG/10 ML VIAL IVP SCH ×2 (09:46→21:30)
[2017-10-11] MEDS: SODIUM CHLORIDE 0.9% 1,000 ML IV SCH ×2 (09:46→18:36)
[2017-10-11 11:07] LABS: Anisocytosis Moderate; HCT 41.4 % (39.0-53.0); HGB 12.2 gm/dL (13.0-17.5); Hypochromasia Marked; MCH 37.3 pg (25.0-35.0); MCHC 29.4 g/dL (31.0-37.0); MCV 126.6 fL (80.0-100.0); Macrocytosis Marked; Mean Platelet Volume 7.3; Platelet Count 726 k/uL (150-450); Poikilocytosis Slight; RBC 3.27 m/uL (4.30-5.90); RDW 20.1 % (11.5-15.5); WBC 5.4 k/uL (3.8-10.6)
[2017-10-11 11:31] LABS: Calcium 8.4 mg/dL (8.4-10.2); Potassium 4.4 mmol/L (3.5-5.1)
--- NOTE | 2017-10-11 11:49 | XR ---
EXAMINATION TYPE: XR abdomen 2V DATE OF EXAM: 10/11/2017 COMPARISON: 10/10/2017 HISTORY: Pain TECHNIQUE: Two view abdominal series FINDINGS: The osseous structures are intact. Stable appearing dilated small bowel loops with air-fluid levels. Hypertrophic and degenerative change of the spine are and postsurgical change involving the abdomen a nd joints noted. Assessment for free air is nondiagnostic due to positioning. IMPRESSION: 1. Persistent dilated small bowel loops which are slightly low increased in caliber compared to the p rior exam suggestive of small bowel obstruction.
--- NOTE | 2017-10-11 13:02 | P.PN ---
Subjective Progress Note Date: 10/11/17 This is an 81-year-old male patient of Dr. Sandra with a previous medical history significant for hypertension and hypertensive cardio vascular disease, hyperlipidemia, chronic kidney disease stage II, history of essential thrombocytosis, history of the severe spondylosis of the cervical spine,He was last admitted 08/25/2017 for orchitis with urinary tract infection along with acute diverticulitis on IV antibiotics then thereafter discharged to home, with oral levaquin and flagyl and did well. He now comes in to the emergency room secondary to abdominal pain bilateral lower abdomen and periumbilical region, one day duration. Patient denies any fever however he has increasing nausea and vomiting and abdominal distention, was subsequently seen in the emergency room patient denies any chest pain or palpitations or lightheadedness, no pleurisy, he has vomitus of bilious material, no fecaloid material. Abnormal history include prior kidney donor, colonoscopy in the past. No history of bowel obstruction in the past no history of bowel resection, he does have recurrent diverticular disease. Emergency room, he had workup that included a CAT scan, Computed tomography scan findings show suspected small bowel dilated loops with fluid and mesenteric edema no transition point concerning for early small bowel obstruction against ileus, also mesenteric fat inflammation throughout: Mainly the rectosigmoid region, normal appendix also noted with splenic abnormality showing numerous areas of low attenuation, largest of 13 cm, ill-defined spleen, , rectosigmoid diverticulitis, or basilar groundglass opacifications, early pneumonia should be considered. They have already notified Dr. Fried regarding the suspected early small bowel obstruction, NG tube was requested to be placed, in the emergency room. 2 Attempts were made, however patient was screaming during the procedure, and the NG tube was curling in his throat rather than passing into the pharynx. NG tube procedure was held in the process of the patient refused. Patient was admitted for small bowel obstruction, and acute diverticulitis.. EKG in the ER shows normal sinus rhythm with multiple PVCs no ST segment elevation, magnesium has been replaced in the emergency room as well for hypomagnesemia. Consult was made with Dr. Enriquez, and cardiology, and Dr. Puentes for spleen lesions 10/07: Abdominal ultrasound showed splenomegaly. Hypoechoic areas within the spleen corresponding to the abnormalities noted on CT which shows cystic measurements by Hounsfield units. Findings could possibly be indicative of chronic splenic infarcts. Patient has been seen by general surgeon with plan for EGD and passing of a NG tube under sedation as multiple attempts of been successful. Conservative management is recommended at this time. Oncology is on consult. Patient complains of continued vomiting of bile. He states his pain is controlled. He denies passing any gas or bowel movement. 10/08: Patient had NG tube placed by Dr. Enriquez under sedation at EGD and patient has subsequently pulled this out stating that he didn't know it needed to stay in. He has again vomiting bile. We will order an abdominal x-ray. He is continued on Flagyl and Zosyn. He has been afebrile. Pulse ox 95% on room air. White count is at 2.3, hemoglobin stable at 12.1, platelet count is 466. Creatinine is 1.24. Patient is followed by cardiology for frequent PVCs. [facility]ation is to continue current therapy and they will follow on an as-needed basis 10/09: His vital signs have been stable. He has been afebrile. White count is 3.2, hemoglobin 13.2, platelet count 540. Patient states he does not want to undergo surgery. He states he has not had emesis this morning.. No NG tube in place. He is on IV antibiotics the form of Flagyl and Zosyn. CODE STATUS full code. TPN will be ordered and PICC line ordered. Dietitian consult for TPN recommendations. Patient denies passing any gas. He states he walked around the hallway twice. Repeat abdominal x-rays ordered for tomorrow. Urine is noted PT colored. Urinalysis ordered. Repeat lab work tomorrow. 10/10: Patient is tolerating clear liquids and PICC line placement will be canceled. Dr. Fried has cleared the patient for discharge if he continues to tolerate liquids. Abdominal pain is improving. He states he is having lots of bowel movements that are liquid since last evening. Diet will be advanced to a fall. Anticipate discharge home tomorrow. 10/11: White count is 5.4, hemoglobin 12.2, platelet count 726. Abdominal x-ray showed persistent dilated small bowel loops slightly low increased in caliber compared to prior exam suggestive of small bowel obstruction. IV antibiotics will be switched over to oral antibiotics and IV fluids decreased to 75 mL per hour. Diet will be advanced to soft. Patient is complaining of rash on his back for which triamcinolone cream added. Patient states he is still having bowel movements but they are more formed and less diarrhea. Objective - Vital Signs Vital signs: Vital Signs Temp 97.6 F 10/11/17 07:58 Pulse 72 10/11/17 07:58 Resp 16 10/11/17 07:58 BP 158/76 10/11/17 07:58 Pulse Ox 97 10/11/17 07:58 Intake & Output 10/10/17 10/11/17 10/11/17 18:59 06:59 18:59 Intake Total 1999 1500 480 Output Total 4 Balance 1995 1500 480 Weight 90.71 kg 90.71 kg Intake: IV 1000 Sodium Chloride 0.9% 1, 1000 000 ml @ 125 mls/hr IV . Q8H JS Rx#:[id number] Intake, IV Titration 1500 Amount Sodium Chloride 0.9% 1, 1500 000 ml @ 125 mls/hr IV . Q8H JS Rx#:[id number] Oral 1000 480 Output: Urine/Stool Mix 4 Other: Voiding Method Toilet # Voids 1 # Bowel Movements 1 - Exam General appearance: cooperative, no acute distress - EENT Eyes: anicteric sclerae, EOMI, dentition normal, normal appearance ENT: NA/AT, normal oropharynx - Neck Neck: normal ROM - Respiratory Respiratory: bilateral: CTA, negative: diminished, dullness, rales - Cardiovascular Rhythm: regular Heart sounds: normal: S1, S2 Abnormal Heart Sounds: no systolic murmur, no diastolic murmur, no rub, no S3 Gallop, no S4 Gallop, no click, no other - Gastrointestinal General gastrointestinal: soft, splenomegaly, nontender - Integumentary Integumentary: decreased turgor, normal - Neurologic Neurologic: CNII-XII intact - Musculoskeletal Musculoskeletal: gait normal - Psychiatric Psychiatric: A&O x's 3, appropriate affect - Labs CBC & Chem 7: 10/11/17 10:34 10/11/17 10:34 Labs: Abnormal Lab Results - Last 24 Hours (Table) 10/10/17 10/11/17 10/11/17 Range/Units 14:20 10:34 10:34 RBC 3.27 L (4.30-5.90) m/uL Hgb 12.2 L (13.0-17.5) gm/dL MCV 126.6 H (80.0-100.0) fL MCH 37.3 H (25.0-35.0) pg MCHC 29.4 L (31.0-37.0) g/dL RDW 20.1 H (11.5-15.5) % Plt Count 726 H (150-450) k/uL Chloride 112 H (98-107) mmol/L Carbon Dioxide 17 L (22-30) mmol/L Glucose 142 H (74-99) mg/dL Urine Protein 1+ H (Negative) Urine Ketones 2+ H (Negative) Urine Bilirubin 1+ H (Negative) Ur Leukocyte Esterase Small H (Negative) Amorphous Sediment Rare H (None) /hpf Urine Mucus Rare H (None) /hpf Microbiology - Last 24 Hours (Table) 10/06/17 13:45 Blood Culture - Preliminary Blood No Growth after 96 hours Assessment and Plan Plan: 1. Small bowel obstruction. Consult with Dr. Enriquez appreciated. She has cleared him for discharge. IV antibiotics switched to oral Levaquin and Flagyl. IV fluids decreased to 75 mL per hour. Diet advance to soft. 2. Acute rectosigmoid diverticulitis: Oral Levaquin and Flagyl. 3. Essential thrombocytosis: Follows with Dr. Moreno as outpatient on hydroxyurea which is held. 4. Anemia and pancytopenia, cannot rule out early myelodysplasia, however hydroxyurea can show this side effect, being monitored closely by oncology, oncology is on consult. 5. Abnormal red blood cell volume, patient has chronic EtOH, also with the suspected bone marrow pathology, 6. Moderate alcohol consumption, [place] drink daily we would monitor closely for delirium tremens, last alcohol intake approximately 10/05/2017 7. Multiple PVCs, and hypomagnesemia, thyroid function test to be obtained, cardiology consult appreciated. Cardiology is following on an as-needed basis. 8. Atherosclerotic heart disease and hypertensive cardiovascular disease, hydralazine 10 every 6 when necessary, by mouth meds on hold secondary to nothing by mouth status 9. Gout: Zyloprim 300 mg a day. 10. Hypertension: Remain on metoprolol 25 mg twice a day along with hydralazine 25 mg twice a day. 11. Severe GERD/GI prophylaxis: Remain on pantoprazole. 12. Chronic neuropathy: gabapentin 300 mg twice a day while nothing by mouth. 13. Mild memory loss: Mostly secondary to previous history of stroke. 14. DVT prophylaxis: Continue patient on Venodyne boots and knee-high JOSE LUIS hose , neurological prophylaxis with Lovenox. 15. Severe protein calorie malnutrition due to nothing by mouth status and vomiting. Ensure clear Contact dermatitis to the back. Triamcinolone cream added Discharge plan: Home on Saturday Impression and plan of care have been directed as dictated by the signing physician. Alexandra Quiles nurse practitioner acting as scribe for signing physician.
[2017-10-11] MEDS: LEVOFLOXACIN 500 MG TAB PO SCH (14:33)
[2017-10-11] MEDS: TRIAMCINOLONE ACET 0.1% OINTMENT 15 GM TUBE TOPICAL SCH ×2 (14:34→21:30)
[2017-10-11] MEDS: metroNIDAZOLE 500 MG TAB PO SCH ×2 (14:34→21:29)
--- NOTE | 2017-10-11 20:27 | P.PN ---
Subjective Progress Note Date: 10/11/17 Patient is a 81-year-old gentleman initially admitted for small bowel obstruction. He had difficult to placement of the NG tube however in the last 2 days his bowel obstruction is resolved. He has been tolerating liquid diet. He is passing flatus. Abdominal pain is resolved. He is ambulating. He is eager to go home. He is just tolerated a soft diet as well today. Objective - Vital Signs Vital signs: Vital Signs Temp 98.7 F 10/11/17 20:13 Pulse 76 10/11/17 20:13 Resp 16 10/11/17 20:13 BP 150/81 10/11/17 20:13 Pulse Ox 95 10/11/17 20:13 Intake & Output 10/11/17 10/11/17 10/12/17 06:59 18:59 06:59 Intake Total 1500 1685 Output Total 200 Balance 1500 1485 Weight 90.71 kg Intake: IV 600 Sodium Chloride 0.9% 1, 600 000 ml @ 75 mls/hr IV . [id number] JS Rx#:[id number] Intake, IV Titration 1500 Amount Sodium Chloride 0.9% 1, 1500 000 ml @ 75 mls/hr IV . [id number] JS Rx#:[id number] Oral 1085 Output: Urine 200 Other: Voiding Method Toilet Toilet Urinal # Voids 1 # Bowel Movements 1 - Exam GENERAL: Well developed and in no acute distress. Pleasant. HEENT: No sclera icterus. Extraocular movements grossly intact. Moist buccal mucosa. Head is atraumatic, normocephalic. Hears conversational speech. No nasal drainage. NECK: Supple without lymphadenopathy. No JV distention. CHEST: Non-labored respirations and equal bilateral excursions. CARDIOVASCULAR: Regular rate and rhythm. Palpable 2+ radial pulses. ABDOMEN: Soft, nontender. Nondistended. MUSCULOSKELETAL: No clubbing, cyanosis or edema. NEUROLOGIC: No focal or lateralizing signs. Cranial nerves II-12 grossly intact PSYCH: Appropriate affect. Alert and oriented to person, place and time. SKIN: Good skin turgor. Well perfused. - Labs CBC & Chem 7: 10/11/17 10:34 10/11/17 10:34 Labs: Abnormal Lab Results - Last 24 Hours (Table) 10/11/17 10/11/17 Range/Units 10:34 10:34 RBC 3.27 L (4.30-5.90) m/uL Hgb 12.2 L (13.0-17.5) gm/dL MCV 126.6 H (80.0-100.0) fL MCH 37.3 H (25.0-35.0) pg MCHC 29.4 L (31.0-37.0) g/dL RDW 20.1 H (11.5-15.5) % Plt Count 726 H (150-450) k/uL Chloride 112 H (98-107) mmol/L Carbon Dioxide 17 L (22-30) mmol/L Glucose 142 H (74-99) mg/dL Microbiology - Last 24 Hours (Table) 10/06/17 13:45 Blood Culture - Preliminary Blood No Growth after 120 hours Assessment and Plan (1) Small bowel obstruction Current Visit: Yes Status: Acute Code(s): K56.609 - UNSP INTESTNL OBST, UNSP TO PARTIAL VERSUS COMPLETE OBST SNOMED Code(s): 910196950 (2) Splenic lesion Current Visit: Yes Status: Acute Code(s): D73.9 - DISEASE OF SPLEEN, UNSPECIFIED SNOMED Code(s): 344719880997306 (3) Chronic renal failure Current Visit: No Status: Acute Code(s): N18.9 - CHRONIC KIDNEY DISEASE, UNSPECIFIED SNOMED Code(s): 40914608 Plan: 1. Clinically he is doing well. He may be discharged from a surgical standpoint when medically stable.
--- NOTE | 2017-10-11 20:35 | P.PN ---
Subjective Progress Note Date: 10/11/17 Principal diagnosis: SBO Patient seen and evaluated in follow-up today. No emesis today, tolerating clear liquids and positive BM Advancement of diet to softs today and if tolerating will discharge in am per medicine Objective - Vital Signs Vital signs: Vital Signs Temp 97.6 F 10/11/17 07:58 Pulse 72 10/11/17 07:58 Resp 16 10/11/17 07:58 BP 158/76 10/11/17 07:58 Pulse Ox 97 10/11/17 07:58 Intake & Output 10/10/17 10/11/17 10/11/17 18:59 06:59 18:59 Intake Total 1999 1500 480 Output Total 4 Balance 1995 1500 480 Weight 90.71 kg 90.71 kg Intake: IV 1000 Sodium Chloride 0.9% 1, 1000 000 ml @ 125 mls/hr IV . Q8H JS Rx#:[id number] Intake, IV Titration 1500 Amount Sodium Chloride 0.9% 1, 1500 000 ml @ 125 mls/hr IV . Q8H JS Rx#:[id number] Oral 1000 480 Output: Urine/Stool Mix 4 Other: Voiding Method Toilet # Voids 1 # Bowel Movements 1 - Exam - Exam General appearance: cooperative, no acute distress - EENT Eyes: anicteric sclerae, EOMI, dentition normal, normal appearance ENT: NA/AT, normal oropharynx - Neck Neck: normal ROM - Respiratory Respiratory: bilateral: CTA, negative: diminished, dullness, rales - Cardiovascular Rhythm: regular Heart sounds: normal: S1, S2 Abnormal Heart Sounds: no systolic murmur, no diastolic murmur, - Gastrointestinal General gastrointestinal: soft, splenomegaly, tenderness, Distended, hypoactive today - Integumentary Integumentary: decreased turgor, normal - Neurologic Neurologic: CNII-XII intact - Musculoskeletal Musculoskeletal: gait normal - Psychiatric Psychiatric: A&O x's 3, appropriate affect - Labs CBC & Chem 7: 10/11/17 10:34 10/11/17 10:34 Labs: Abnormal Lab Results - Last 24 Hours (Table) 10/10/17 10/11/17 10/11/17 Range/Units 14:20 10:34 10:34 RBC 3.27 L (4.30-5.90) m/uL Hgb 12.2 L (13.0-17.5) gm/dL MCV 126.6 H (80.0-100.0) fL MCH 37.3 H (25.0-35.0) pg MCHC 29.4 L (31.0-37.0) g/dL RDW 20.1 H (11.5-15.5) % Plt Count 726 H (150-450) k/uL Chloride 112 H (98-107) mmol/L Carbon Dioxide 17 L (22-30) mmol/L Glucose 142 H (74-99) mg/dL Urine Protein 1+ H (Negative) Urine Ketones 2+ H (Negative) Urine Bilirubin 1+ H (Negative) Ur Leukocyte Esterase Small H (Negative) Amorphous Sediment Rare H (None) /hpf Urine Mucus Rare H (None) /hpf Microbiology - Last 24 Hours (Table) 10/06/17 13:45 Blood Culture - Preliminary Blood No Growth after 96 hours Assessment and Plan Plan: Assessment and Recommendations: 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 - He was started on Hydrea, which was initially very effective, but had significant Myelosuprression > Hydrea changed to Anagrelide in Feb 2016 > tolerated poorly mostly 2nd to diarrhea > he stated however, diarrhea started well befor anagrelide !!. He was recommended to start Jakafi , which is is hesitent about due to concerns about side effects. He was restarted on hydrea and monitored closely with dosing modifications and frequent CBCs - Maintained on 2000mg of Hydroxyurea daily - Hydrea on Hold at this time secondary to probable Acute Small Bowel Obstruction - Hold Aspirin at this time too until improvement, in the event he requires surgical intervention - WBC - has improved off Hydrea, continue to hold at this time 2. Acute abdominal pain - CT Scan concerning for early small bowel obstruction - Conservative treatment - No NG tube, tolerating clear liquids no mesis - Surgical Managment continuing bowel rest. Patient expresses today he does not want surgical intervention. - Advancing diet today 3. 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 Previous CTs scans reviewed for comparison, no acute intervention required from oncology standpoint 4. Diverticulitis: IV abx and hydration per primary medicine. 5. Leukopenia/Lymphopenia - Likely secondary to hydroxyurea, he has a history of wax and waining in his blood counts on Hydrea. - At this time hydroxyurea is on hold for acute situation, once resolved and blood counts recover will resume, dose at resuming will be determined based on CBC at that time. - COntinue to hold Hydroxyurea. 6. ETOH Daily - Per primary team monitor DISPO Plan to follow-up next week with [facility] to restart Hydrea. Discharge home on Aspirin and will recheck CBC in office
[2017-10-11] MEDS: METOPROLOL TARTRATE 25 MG TAB PO SCH (21:29)
[2017-10-11] MEDS: GABAPENTIN 300 MG CAP PO SCH (21:29)
[2017-10-11] MEDS: hydrALAZINE HCL 25 MG TAB PO SCH (21:29)
[2017-10-12] MEDS: SODIUM CHLORIDE 0.9% 1,000 ML IV SCH (01:54)
[2017-10-12 08:42] LABS: Anisocytosis Moderate; HGB 11.9 gm/dL (13.0-17.5); Hypochromasia Moderate; MCH 37.5 pg (25.0-35.0); MCHC 30.5 g/dL (31.0-37.0); MCV 122.8 fL (80.0-100.0); Macrocytosis Marked; Mean Platelet Volume 7.5; Platelet Count 791 k/uL (150-450); Poikilocytosis Slight; RBC 3.17 m/uL (4.30-5.90); WBC 5.6 k/uL (3.8-10.6)
[2017-10-12 08:47] VITALS: BP 137/68; PULSE 78; TEMP 97.7
[2017-10-12] MEDS ORDERED: ASPIRIN 81 MG PO SCH (09:00)
[2017-10-12] MEDS ORDERED: ALLOPURINOL 300 MG TAB PO SCH (09:00)
[2017-10-12 09:31] LABS: Calcium 8.5 mg/dL (8.4-10.2); Potassium 5.1 mmol/L (3.5-5.1)
[2017-10-12] MEDS: hydrALAZINE HCL 25 MG TAB PO SCH (09:47)
[2017-10-12] MEDS: GABAPENTIN 300 MG CAP PO SCH (09:47)
[2017-10-12] MEDS: LEVOFLOXACIN 500 MG TAB PO SCH (09:47)
[2017-10-12] MEDS: metroNIDAZOLE 500 MG TAB PO SCH (09:47)
[2017-10-12] MEDS: METOPROLOL TARTRATE 25 MG TAB PO SCH (09:47)
[2017-10-12] MEDS: PANTOPRAZOLE 40 MG/10 ML VIAL IVP SCH (09:48)
[2017-10-12] MEDS: ENOXAPARIN 40 MG/0.4 ML SYRINGE SQ SCH (09:49)
[2017-10-12] MEDS: HYDROXYUREA 500 MG CAP PO SCH (09:51)
--- NOTE | 2017-10-12 11:19 | P.PN ---
Subjective Progress Note Date: 10/12/17 Patient is a 81-year-old gentleman initially admitted for small bowel obstruction. His is at bedside. He's been tolerating soft diet. No further reports of abdominal pain. Objective - Vital Signs Vital signs: Vital Signs Temp 97.7 F 10/12/17 07:30 Pulse 78 10/12/17 07:30 Resp 16 10/12/17 07:30 BP 137/68 10/12/17 07:30 Pulse Ox 97 10/12/17 07:30 Intake & Output 10/11/17 10/12/17 10/12/17 18:59 06:59 18:59 Intake Total 1685 100 Output Total 200 950 Balance 1485 -950 100 Weight 90.71 kg Intake: IV 600 Sodium Chloride 0.9% 1, 600 000 ml @ 75 mls/hr IV . [id number] JS Rx#:[id number] Oral 1085 100 Output: Urine 200 950 Other: Voiding Method Toilet Urinal - Exam GENERAL: Well developed and in no acute distress. Pleasant. HEENT: No sclera icterus. Extraocular movements grossly intact. Moist buccal mucosa. Head is atraumatic, normocephalic. Hears conversational speech. No nasal drainage. NECK: Supple without lymphadenopathy. No JV distention. CHEST: Non-labored respirations and equal bilateral excursions. CARDIOVASCULAR: Regular rate and rhythm. Palpable 2+ radial pulses. ABDOMEN: Soft, nontender. Nondistended. MUSCULOSKELETAL: No clubbing, cyanosis or edema. NEUROLOGIC: No focal or lateralizing signs. Cranial nerves II-12 grossly intact PSYCH: Appropriate affect. Alert and oriented to person, place and time. SKIN: Good skin turgor. Well perfused. - Labs CBC & Chem 7: 10/12/17 07:57 10/12/17 07:57 Labs: Abnormal Lab Results - Last 24 Hours (Table) 10/11/17 10/12/17 10/12/17 Range/Units 10:34 07:57 07:57 RBC 3.17 L (4.30-5.90) m/uL Hgb 11.9 L (13.0-17.5) gm/dL MCV 122.8 H (80.0-100.0) fL MCH 37.5 H (25.0-35.0) pg MCHC 30.5 L (31.0-37.0) g/dL RDW 20.0 H (11.5-15.5) % Plt Count 791 H (150-450) k/uL Chloride 112 H 119 H (98-107) mmol/L Carbon Dioxide 17 L 16 L (22-30) mmol/L Glucose 142 H (74-99) mg/dL Microbiology - Last 24 Hours (Table) 10/06/17 13:45 Blood Culture - Preliminary Blood No Growth after 120 hours Assessment and Plan (1) Small bowel obstruction Current Visit: Yes Status: Acute Code(s): K56.609 - UNSP INTESTNL OBST, UNSP TO PARTIAL VERSUS COMPLETE OBST SNOMED Code(s): 579042764 (2) Splenic lesion Current Visit: Yes Status: Acute Code(s): D73.9 - DISEASE OF SPLEEN, UNSPECIFIED SNOMED Code(s): 118450276834452 (3) Chronic renal failure Current Visit: No Status: Acute Code(s): N18.9 - CHRONIC KIDNEY DISEASE, UNSPECIFIED SNOMED Code(s): 87483517 Plan: 1. I have discussed with him and his to avoid particularly high fiber foods such as spinach and green leafy vegetable poorly to as clinically these can also add to bowel obstruction. 2. They may follow up with me as needed.
--- NOTE | 2017-10-12 14:26 | P.DS ---
Providers Date of admission: 10/06/17 15:57 Attending physician: Luciana Ayala Consults: 10/06/17 15:57 Consult Physician Stat Consulting Provider: Dipesh Puentes Consult Reason/Comments: neutropenia, splanic lesion, question of lymphoma radiologists question? Do you want consulting provider notified?: Yes Consult Physician Stat Consulting Provider: Karon Enriquez Consult Reason/Comments: SBO Do you want consulting provider notified?: Yes 10/06/17 22:17 Consult Physician Routine Consulting Provider: Charanjit Berg Consult Reason/Comments: cardiology review as request by Dr. Ayala Do you want consulting provider notified?: Yes, Notify in am Primary care physician: Laurita Sandra [facility] Course: This is an 81-year-old male patient of Dr. Sandra with a previous medical history significant for hypertension and hypertensive cardio vascular disease, hyperlipidemia, chronic kidney disease stage II, history of essential thrombocytosis, history of the severe spondylosis of the cervical spine,He was last admitted 08/25/2017 for orchitis with urinary tract infection along with acute diverticulitis on IV antibiotics then thereafter discharged to home, with oral levaquin and flagyl and did well. He now comes in to the emergency room secondary to abdominal pain bilateral lower abdomen and periumbilical region, one day duration. Patient denies any fever however he has increasing nausea and vomiting and abdominal distention, was subsequently seen in the emergency room patient denies any chest pain or palpitations or lightheadedness, no pleurisy, he has vomitus of bilious material, no fecaloid material. Abnormal history include prior kidney donor, colonoscopy in the past. No history of bowel obstruction in the past no history of bowel resection, he does have recurrent diverticular disease. Emergency room, he had workup that included a CAT scan, Computed tomography scan findings show suspected small bowel dilated loops with fluid and mesenteric edema no transition point concerning for early small bowel obstruction against ileus, also mesenteric fat inflammation throughout: Mainly the rectosigmoid region, normal appendix also noted with splenic abnormality showing numerous areas of low attenuation, largest of 13 cm, ill-defined spleen, , rectosigmoid diverticulitis, or basilar groundglass opacifications, early pneumonia should be considered. They have already notified Dr. Fried regarding the suspected early small bowel obstruction, NG tube was requested to be placed, in the emergency room. 2 Attempts were made, however patient was screaming during the procedure, and the NG tube was curling in his throat rather than passing into the pharynx. NG tube procedure was held in the process of the patient refused. Patient was admitted for small bowel obstruction, and acute diverticulitis.. EKG in the ER shows normal sinus rhythm with multiple PVCs no ST segment elevation, magnesium has been replaced in the emergency room as well for hypomagnesemia. Consult was made with Dr. Enriquez, and cardiology, and Dr. Puentes for spleen lesions 10/07: Abdominal ultrasound showed splenomegaly. Hypoechoic areas within the spleen corresponding to the abnormalities noted on CT which shows cystic measurements by Hounsfield units. Findings could possibly be indicative of chronic splenic infarcts. Patient has been seen by general surgeon with plan for EGD and passing of a NG tube under sedation as multiple attempts of been successful. Conservative management is recommended at this time. Oncology is on consult. Patient complains of continued vomiting of bile. He states his pain is controlled. He denies passing any gas or bowel movement. 10/08: Patient had NG tube placed by Dr. Enriquez under sedation at EGD and patient has subsequently pulled this out stating that he didn't know it needed to stay in. He has again vomiting bile. We will order an abdominal x-ray. He is continued on Flagyl and Zosyn. He has been afebrile. Pulse ox 95% on room air. White count is at 2.3, hemoglobin stable at 12.1, platelet count is 466. Creatinine is 1.24. Patient is followed by cardiology for frequent PVCs. Mentation is to continue current therapy and they will follow on an as-needed basis 10/09: His vital signs have been stable. He has been afebrile. White count is 3.2, hemoglobin 13.2, platelet count 540. Patient states he does not want to undergo surgery. He states he has not had emesis this morning.. No NG tube in place. He is on IV antibiotics the form of Flagyl and Zosyn. CODE STATUS full code. TPN will be ordered and PICC line ordered. Dietitian consult for TPN recommendations. Patient denies passing any gas. He states he walked around the hallway twice. Repeat abdominal x-rays ordered for tomorrow. Urine is noted PT colored. Urinalysis ordered. Repeat lab work tomorrow. 10/10: Patient is tolerating clear liquids and PICC line placement will be canceled. Dr. Fried has cleared the patient for discharge if he continues to tolerate liquids. Abdominal pain is improving. He states he is having lots of bowel movements that are liquid since last evening. Diet will be advanced to a fall. Anticipate discharge home tomorrow. 10/11: White count is 5.4, hemoglobin 12.2, platelet count 726. Abdominal x-ray showed persistent dilated small bowel loops slightly low increased in caliber compared to prior exam suggestive of small bowel obstruction. IV antibiotics will be switched over to oral antibiotics and IV fluids decreased to 75 mL per hour. Diet will be advanced to soft. Patient is complaining of rash on his back for which triamcinolone cream added. Patient states he is still having bowel movements but they are more formed and less diarrhea. 10/12 patient is doing well. Tolerated soft diet this morning. Denies any nausea , vomiting or abdominal pain. Discharge diagnosis 1. Small bowel obstruction. 2. Acute rectosigmoid diverticulitis: 3. Essential thrombocytosis: 4. Anemia and pancytopenia, cannot rule out early myelodysplasia, 5. Abnormal red blood cell volume, patient has chronic EtOH, 6. Moderate alcohol consumption 7. Multiple PVCs, and hypomagnesemia 8. Atherosclerotic heart disease and hypertensive cardiovascular disease 9. Gout: 10. Hypertension 11. Contact dermatitis to the back. 12 Chronic neuropathy 13. Mild memory loss: 14. Severe protein calorie malnutrition Disposition home with self-care Patient Condition at Discharge: Good Plan - Discharge Summary Discharge Rx Participant: Yes New Discharge Prescriptions: New Levofloxacin [Levaquin] 500 mg PO DAILY #4 tab metroNIDAZOLE [Flagyl] 500 mg PO TID #12 tab Triamcinolone 0.1% Ointment [Kenalog 0.1% Ointment] 1 applic TOPICAL BID #1 applic Continue hydrALAZINE HCL [Apresoline] 25 mg PO BID Hydroxyurea [Hydrea] 500 mg PO QID Allopurinol [Zyloprim] 300 mg PO DAILY Aspirin 325 mg PO DAILY EPINEPHrine (Auto Inject) [Epipen] 0.3 mg IM ONCE PRN PRN Reason: Anaphylaxis Gabapentin [Neurontin] 300 mg PO BID Pantoprazole Sodium [Protonix] 40 mg PO AC-BRKFST Metoprolol Tartrate 25 mg PO BID #60 tab Omeprazole Magnesium [PriLOSEC OTC] 20 mg PO ONCE PRN PRN Reason: Gi Upset Discharge Medication List Allopurinol [Zyloprim] 300 mg PO DAILY 09/01/13 [History] Hydroxyurea [Hydrea] 500 mg PO QID 09/01/13 [History] hydrALAZINE HCL [Apresoline] 25 mg PO BID 09/01/13 [History] Aspirin 325 mg PO DAILY 08/02/16 [History] EPINEPHrine (Auto Inject) [Epipen] 0.3 mg IM ONCE PRN 01/06/17 [History] Gabapentin [Neurontin] 300 mg PO BID 06/13/17 [History] Pantoprazole Sodium [Protonix] 40 mg PO AC-BRKFST 08/04/17 [History] Metoprolol Tartrate 25 mg PO BID #60 tab 08/06/17 [Rx] Omeprazole Magnesium [PriLOSEC OTC] 20 mg PO ONCE PRN 10/06/17 [History] Levofloxacin [Levaquin] 500 mg PO DAILY #4 tab 10/12/17 [Rx] Triamcinolone 0.1% Ointment [Kenalog 0.1% Ointment] 1 applic TOPICAL BID #1 applic 10/12/17 [Rx] metroNIDAZOLE [Flagyl] 500 mg PO TID #12 tab 10/12/17 [Rx] Follow up Appointment(s)/Referral(s): Laurita Sandra MD [Primary Care Provider] - 1-2 days (please call office and make appointment, office closed) Karon Enriquez MD [STAFF PHYSICIAN] - 1 Week (Follw up as needed) Patient Instructions/Handouts: Bowel Obstruction (DC) Discharge Disposition: HOME SELF-CARE
[2017-10-12] MEDS ORDERED: PANTOPRAZOLE SODIUM 40 MG GRANULE PKT PO SCH (17:30)
== END 2017-10-12 14:40 | disposition home or self-care (01) | DRG 388 ==
LOC: EC 12:31 → 3SUR 15:57
PROVIDERS: ADMIT Family Medicine; ATTEND Family Medicine
PROC: 0DJ08ZZ Inspection of Upper Intestinal Tract, Via Natural or Artificial Opening Endoscopic (ICD-10-PCS; principal; 2017-10-07 08:55)
DX: K56.609 Unspecified intestinal obstruction, unspecified as to partial versus complete obstruction (principal); E43 Unspecified severe protein-calorie malnutrition; K57.32 Diverticulitis of large intestine without perforation or abscess without bleeding; D61.818 Other pancytopenia; E83.42 Hypomagnesemia; I49.3 Ventricular premature depolarization; I13.10 Hypertensive heart and chronic kidney disease without heart failure, with stage 1 through stage 4 chronic kidney disease, or unspecified chronic kidney disease; N18.2 Chronic kidney disease, stage 2 (mild); K21.0 Gastro-esophageal reflux disease with esophagitis; K44.9 Diaphragmatic hernia without obstruction or gangrene; M54.9 Dorsalgia, unspecified; G89.29 Other chronic pain; D73.89 Other diseases of spleen; E78.5 Hyperlipidemia, unspecified; G47.30 Sleep apnea, unspecified; G62.9 Polyneuropathy, unspecified; I25.10 Atherosclerotic heart disease of native coronary artery without angina pectoris; L25.9 Unspecified contact dermatitis, unspecified cause; M10.9 Gout, unspecified; Z96.643 Presence of artificial hip joint, bilateral; I69.311 Memory deficit following cerebral infarction; Z79.82 Long term (current) use of aspirin; Z82.3 Family history of stroke; Z82.49 Family history of ischemic heart disease and other diseases of the circulatory system; Z82.71 Family history of polycystic kidney; Z83.3 Family history of diabetes mellitus; Z85.828 Personal history of other malignant neoplasm of skin; Z98.41 Cataract extraction status, right eye; Z68.28 Body mass index [BMI] 28.0-28.9, adult; Z87.440 Personal history of urinary (tract) infections
CPT/HCPCS: 36415; 43235; 71046; 74018; 74019; 74177; 76705; 80048; 80053; 81001; 82150; 83605; 83690; 84443; 84484; 85025; 85027; 85610; 87040; 93005; 96361; 96374; 96375; 96376; 99285

== ENCOUNTER → 2017-10-24 | Outpatient (CLI) | payer MEDICARE ==
[2017-10-24 13:56] VITALS: BP 85/57; PULSE 74; RESP 18
--- NOTE | 2017-10-24 14:25 | P.PN ---
Subjective Progress Note Date: 10/24/17 This is an 81-year-old gentleman with widespread body pain and recent admission to the hospital to rule out bowel obstruction. He does have myelodysplastic syndrome and essential thrombocytosis. He had 2 cervical epidural steroid injection which did not help his neck pain. He complains of decreased activity and his states that his walking turned into shoveling. He denies any bowel or bladder dysfunction at this moment. He does have history of chronic kidney disease. The cervical spine MRI showed multilevel of degeneration. He does not have any recent MRIs on the lumbar spine. The patient is alert oriented 3 in no apparent distress He sits in a wheelchair Neuro exam of the upper extremities showed decreased but symmetrical muscle strength to 4 out of 5 in the upper extremities and absent deep tendon reflexes bilaterally He has normal range of motion of the cervical spine and no tenderness in the cervical paravertebral area bilaterally He has some tenderness in the lumbar paravertebral area bilaterally He has decreased but symmetrical muscle strength in the lower extremities to 4 out of 5 Plan: The patient has cervical and lumbar spondylosis bilaterally without myelopathy. Cervical and lumbar degenerative disc disease Progressive weakness in the upper and lower extremities I will schedule the patient to have lumbar epidural steroid injection under fluoroscopic guidance I will also send him to have lumbar spine MRI because of his progressive weakness in the lower extremities without gadolinium because of his chronic kidney disease. The patient denies taking any anticoagulants The patient was prescribed 6 pills of Downing and he was discharged from the hospital a few never try to take them spine encouraged him to try Downing for his widespread body pain and we will see if he will get any side effects from it and how effective it will be. Meanwhile we will plan on doing the above-mentioned procedure on the lumbar spine as soon as possible. He might also benefit in the future from getting cervical medial branch block under fluoroscopic guidance as diagnostic procedure however his main complaint today is low back pain and widespread body pain in general. Objective - Vital Signs Vital signs: Vital Signs Temp Pulse 74 10/24/17 13:47 Resp 18 10/24/17 13:47 BP 85/57 10/24/17 13:47 Pulse Ox 100 10/24/17 13:47 Intake & Output 10/23/17 10/24/17 10/24/17 18:59 06:59 18:59 Weight 90.718 kg
== END | disposition home or self-care (01) ==
LOC: PNWHC3 13:33
PROVIDERS: ATTEND Anesthesiology
DX: M50.30 Other cervical disc degeneration, unspecified cervical region (principal); M47.812 Spondylosis without myelopathy or radiculopathy, cervical region; M51.36 Other intervertebral disc degeneration, lumbar region; M47.816 Spondylosis without myelopathy or radiculopathy, lumbar region; R53.1 Weakness; D46.9 Myelodysplastic syndrome, unspecified; D47.3 Essential (hemorrhagic) thrombocythemia; N18.9 Chronic kidney disease, unspecified
CPT/HCPCS: 99211

== ENCOUNTER → 2017-11-13 | Outpatient (CLI) | payer MEDICARE | END | disposition home or self-care (01) | LOC: LABWHC1 06:49 | PROVIDERS: ATTEND Physician Assistant | DX: B35.6 Tinea cruris (principal); B35.4 Tinea corporis; Z79.899 Other long term (current) drug therapy | CPT/HCPCS: 36415; 82565; 84450; 84460; 84520 ==

== ENCOUNTER → 2017-11-13 | Outpatient (CLI) | payer MEDICARE ==
--- NOTE | 2017-11-13 08:05 | MR ---
EXAMINATION TYPE: MR lumbar spine wo con DATE OF EXAM: 11/13/2017 COMPARISON: CT abdomen pelvis dated 10/06/2017 HISTORY: Low back pain, leg pain TECHNIQUE: Multiplanar, multisequence images of the lumbar spine were acquired. The exam is slightly suboptimal secondary to patient motion. FINDINGS: Multilevel disc desiccation is seen. There is very mild grade 1 anterolisthesis of L4 on L5 . Otherwise the vertebral body alignments are maintained of the lumbar spine. Modic type II endplate changes and multiple Schmorl's nodes with intervertebral disc desiccation are seen throughout the lum bar spine. Vertebral body heights are overall maintained. No suspicious bone marrow abnormalities. Sl ight epidural lipomatosis is seen of the lumbar spine. Mild paraspinal muscular atrophy is seen infer iorly at the lumbosacral junction. Atherosclerosis is noted of the abdominal aorta which is ectatic m easuring up to 2.8 cm. L1-L2: There is a right eccentric bilobed broad-based disc bulge and facet arthropathy resulting in m ild bilateral neural foraminal narrowing. No spinal canal stenosis. Ligamentum flavum buckling is als o seen. L2-L3: There is a broad-based disc bulge, facet arthropathy and ligamentum flavum buckling creating m oderate spinal canal stenosis and moderate bilateral neural foraminal narrowing. L3-L4: There is a broad-based disc bulge, facet arthropathy and ligamentum flavum buckling creating m ild spinal canal stenosis and mild bilateral neural foraminal narrowing. L4-L5: There is severe spinal canal stenosis created by extensive ligamentum flavum buckling, a right paracentral disc herniation superimposed upon a broad-based disc bulge, and hypertrophic facet arthr opathy. There is a question small left 3 mm synovial cyst also contributing to these findings. There is buckling of nerve roots at this level. Neural foraminal narrowing is moderate bilaterally, right g reater than left. L5-S1: There is a broad-based disc bulge without spinal canal stenosis nor neural foraminal narrowing . IMPRESSION: 1. Severe spinal canal stenosis at L4-L5 as a result of a right paracentral disc herniation, degenera tive disc disease, ligamentum flavum buckling, extensive facet arthropathy/hypertrophic changes and a suspected 3 mm left synovial cyst. 2. No evidence of compression deformity or vertebral body bone marrow edema. 3. Multilevel degenerative disc disease resulting in variable degrees of neural foraminal narrowing a nd moderate spinal canal stenosis at L2-L3 as well as mild spinal canal stenosis at L3-L4.
== END ==
LOC: RADMRIMAIN 05:56
PROVIDERS: ATTEND Anesthesiology
DX: M48.061 Spinal stenosis, lumbar region without neurogenic claudication (principal); M99.73 Connective tissue and disc stenosis of intervertebral foramina of lumbar region; M51.26 Other intervertebral disc displacement, lumbar region; M51.36 Other intervertebral disc degeneration, lumbar region; M46.96 Unspecified inflammatory spondylopathy, lumbar region
CPT/HCPCS: 72148

== ENCOUNTER → 2017-12-16 | Day surgery (SDC) | payer MEDICARE ==
[2017-12-11 10:02] VITALS: BMI 28.4
[~2017-12-16] MED LIST changes: -LACTATED RINGERS 1,000 ML IV SCH; +SODIUM CHLORIDE 0.9% 500 ML 500 ML IV ONE
[2017-12-16 06:36] VITALS: PULSE 60
--- NOTE | 2017-12-16 07:25 | P.PCN ---
Date of Procedure: 12/16/17 Preoperative Diagnosis: Lumbar spinal stenosis Postoperative Diagnosis: Lumbar spinal stenosis Procedure(s) Performed: OPERATION: Lumbar epidural steroid injection under fluoroscopic guidance. PREOPERATIVE DIAGNOSES: 1. Spinal stenosis. 2. [Lumbar facet arthropathy.] POSTOPERATIVE DIAGNOSES: 1. [Spinal stenosis] 2. [Lumbar facet arthropathy]. COMPLICATIONS: None. ANESTHESIA: IV sedation with local infiltration. CONDITION: Stable. Fluoroscopy time: 2 seconds. Today is the first lumbar epidural steroid injection for this patient with a history of low back pain. with radiation to the lower extremities , Procedure, risks and benefits discussed with the patient ,including but not limited to risk of infection, bleeding ,nerve damage ,and not complete pain releif discussed with the patient and he agreed with proceeding. DESCRIPTION OF PROCEDURE: Patient taken to the operating room, placed in prone position. All standard monitors applied to the patient. Then after induction of anesthesia, the back prepped with Betadine 3 times. Then at L4 5 interlaminar space, local infiltration of the skin and subcutaneous tissue with lidocaine 1% 3 mL. Then a 20-gauge Tuohy needle advanced slowly under fluoroscopy at L4 5 interlaminar space. There was positive loss of resistance to normal saline. No heme, no paresthesia, no cerebrospinal fluid. Then after negative aspiration,[ Omnipaque 180 mg/mL] 1 mL injected, showed positive spread in the epidural space. No intrathecal spread. Then after negative aspiration, 10 mg of dexamethasone with 2 animals of preservative-free normal saline were injected. Patient tolerated the procedure well without any complication and will follow up in the pain clinic in a few weeks for repeat injection.
[2017-12-16 07:29] VITALS: RESP 18
[2017-12-16 07:50] VITALS: BP 118/58
--- NOTE | 2017-12-16 10:45 | FL ---
Fluoroscopy HISTORY: Pain 2 seconds fluoroscopy time supplied to the referring clinician. 1 intraoperative C-arm images docume nt the procedure. See dictated report from anesthesia.
== END ==
LOC: ORPAIN 06:13
PROVIDERS: ATTEND Hospitalist
DX: M48.061 Spinal stenosis, lumbar region without neurogenic claudication (principal); M47.26 Other spondylosis with radiculopathy, lumbar region; Z91.030 Bee allergy status
CPT/HCPCS: 62323; J2250; J1100; J3010; Q9966

== ENCOUNTER → 2018-01-06 | Day surgery (SDC) | payer MEDICARE ==
[2017-12-30 10:53] VITALS: BMI 28.7
[~2018-01-06] MED LIST changes: +SODIUM CHLORIDE 0.9% 500 ML 500 ML IV SCH
[2018-01-06 07:52] VITALS: TEMP 97.8
--- NOTE | 2018-01-06 08:29 | P.PCN ---
Date of Procedure: 01/06/18 Procedure(s) Performed: PREOPERATIVE DIAGNOSIS: 1- Lumbar Degenerative Disc Diseases 2-Lumbar spondylosis with Facet arthropathy without myelopathy 3-lumbar spinal stenosis. POSTOPERATIVE DIAGNOSIS: 1-Lumber Degenerative Disc Diseases 2-Lumbar spondylosis with Facet arthropathy without myelopathy. 3-lumbar spinal stenosis. PROCEDURE 1. Lumbar epidural steroid injection under fluoroscopic guidance at the L4-5 level. 2. Lumbar epidurogram. ANESTHESIA: Local with 1% lidocaine 3 ml and , moderate sedation with intravenous Versed 1 mg ,and fentanyle 50 Mcg EBL: Minimal PROCEDURE INDICATION: The patient with low back pain and radiculitis symptoms unresponsive to conservative treatment. Fluoroscopy was used to optimize visualization of the needle placement and to maximize safety. PROCEDURE DESCRIPTION / TECHNIQUE: The patient was seen and identified in the preoperative area. Risks, benefits , complications including but not limited to infections ,bleeding ,allergic reaction to the medications ,nerve damage and not complete pain releife , and alternatives were discussed with the patient. The patient agreed to proceed with the procedure and signed the consent. IV was started, and vital signs were stable. Patient was taken to the OR and time out was completed. The patient was placed in the prone position on procedure table and a pillow was placed under the abdomen to reduce lumbar lordosis. The lumbosacral area was prepped and draped in the usual sterile fashion.ere closely monitored during the procedure. Conscious sedation was used during the procedure to decrease patients anxiety. Vital signs was monitered during the entire procedure. Using anterior-posterior fluoroscopy, the L4-5 interlaminar space was identified and the skin over this site was marked and then infiltrated with 1% lidocaine subcutaneously. Subsequently, a 20-gauge Tuohy epidural needle was inserted and advanced toward the epidural space using the ``Loss of resistance technique and guided by AP and lateral fluoroscopy. The correct needle position in the epidural space was verified with the injection of 2 mL of the water soluble contrast dye Isovue 200 contrast and observing an excellent epidurogram with the epidural spread of the dye, after negative aspiration for blood and CSF and in the absence of paresthesias. Again after negative aspiration, a 6 ml mixture containing 40 mg of Depo-medrol , and 2 ml of preservative free Normal Saline, and 2 ml of preservative free lidocaine 1% solution was injected and a washout of epidurogram was seen. Needle was withdrawn intact, skin was cleansed, and bandages were applied. COMPLICATIONS: None DISPOSITION / PLANS: The patient was placed in a supine position and transferred to the recovery area in a stable condition for observation. There was no evidence of lower extremity motor or sensory deficit after the procedure. Patient was discharged from the recovery room after meeting discharge criteria. Home discharge instructions were given to the patient by the staff. The patient was reexamined prior to discharge. The patient will schedule a follow up in the clinic in 2-4 weeks.
[2018-01-06 08:46] VITALS: RESP 18
--- NOTE | 2018-01-06 08:55 | FL ---
EXAMINATION TYPE: FL guided pain mgmt statistic DATE OF EXAM: 01/06/2018 HISTORY: Flouroscopy time 1 seconds of fluoroscopy provided. IMPRESSION: 1. Fluoroscopy time.
[2018-01-06 09:00] VITALS: BP 119/56; PULSE 58
== END | disposition home or self-care (01) ==
LOC: ORPAIN 07:22
PROVIDERS: ATTEND Specialist
DX: M51.16 Intervertebral disc disorders with radiculopathy, lumbar region (principal); M48.061 Spinal stenosis, lumbar region without neurogenic claudication; M47.26 Other spondylosis with radiculopathy, lumbar region
CPT/HCPCS: 62323; J2250; J1030; J3010; Q9966

== ENCOUNTER → 2018-04-02 | Outpatient (CLI) | payer MEDICARE ==
--- NOTE | 2018-04-02 14:42 | CT ---
EXAMINATION TYPE: CT brain wo con DATE OF EXAM: 04/02/2018 COMPARISON: 08/03/2017 HISTORY: ATAXIA, UNSPECIFIED CT DLP: 1233 mGycm Automated exposure control for dose reduction was used. TECHNIQUE: CT scan of the head is performed without contrast. FINDINGS: There is no acute intracranial hemorrhage or midline shift identified. Again there are ol d small cortical infarcts within the left frontal longo radiata including within the precentral gyru s. Benign basal ganglia calcifications are again noted. There is diffuse ventricular and sulcal promi nence consistent with diffuse age-related cerebral atrophy. There is low-attenuation in the perivent ricular white matter consistent with chronic small vessel ischemic change. The globes are intact. Mo derate mucosal thickening of the right maxillary sinus is seen. Right lenses surgically absent. There is undulation of the nasal septum. Mastoid air cells are well aerated. IMPRESSION: 1. No acute intracranial process. 2. Redemonstration of old left hemispheric cortical lacunar infarcts and mild nonspecific periventric ular white matter change as well as age-related atrophy. 2. Mild right maxillary sinus mucosal thickening.
== END | disposition home or self-care (01) ==
LOC: RADCTMAIN 13:05
PROVIDERS: ATTEND Internal Medicine
DX: I63.81 Other cerebral infarction due to occlusion or stenosis of small artery (principal); G31.1 Senile degeneration of brain, not elsewhere classified; R90.89 Other abnormal findings on diagnostic imaging of central nervous system; R27.0 Ataxia, unspecified
CPT/HCPCS: 70450

== ENCOUNTER → 2019-01-26 | Outpatient (CLI) | payer MEDICARE ==
--- NOTE | 2019-01-26 22:08 | MR ---
EXAMINATION TYPE: MR brain wo/w con DATE OF EXAM: 01/26/2019 COMPARISON: CT brain April 02, 2018. MRI brain August 05, 2017. HISTORY: Memory loss TECHNIQUE: Multiplanar, multisequence images of the brain and brainstem is performed without and with IV contras t, utilizing 9.5 mL intravenous Gadavist . FINDINGS: Diffusion weighted images demonstrate no evidence of a recent infarct or other diffusion ab normality. There is no worrisome extra-axial fluid collection. Diffuse ventricular and sulcal promin ence is again seen. Scattered areas of T2 hyperintensity throughout the white matter are redemonstrat ed bilaterally with confluent appearance periVentricular level again seen. Some larger subcortical ar eas posterior left frontal lobe axial image 27 and more anterior axial image 22 are redemonstrated. Midline structures demonstrate normal morphology. The craniocervical junction appears within normal limits. Post contrast images demonstrate no abnormal enhancement. The dural venous sinuses appear pa tent. Persistent mild mucosal thickening involving the inferior bilateral maxillary sinuses. Poor vis ualization of right lens is redemonstrated suggesting prior cataract surgery. IMPRESSION: Fairly mild to moderate diffuse cerebral atrophy and moderate nonspecific white matter ch anges presumed on the basis of product of chronic small vessel ischemic change and old infarcts are r edemonstrated without significant interval change from most recent MRI.
== END ==
LOC: RADMRIMAIN 12:52
PROVIDERS: ATTEND Internal Medicine
DX: G31.9 Degenerative disease of nervous system, unspecified (principal); R90.89 Other abnormal findings on diagnostic imaging of central nervous system
CPT/HCPCS: 70553; A9585

== ENCOUNTER → 2019-04-14 | Outpatient (CLI) | payer MEDICARE | END | disposition home or self-care (01) | LOC: LABWHC1 16:51 | PROVIDERS: ATTEND Psychiatry & Neurology Neurology | DX: Z53.9 Procedure and treatment not carried out, unspecified reason (principal) ==

== ENCOUNTER → 2019-04-14 | Outpatient (CLI) | payer MEDICARE ==
[2019-04-14 17:38] LABS: Appearance,Urine Clear (Clear); Bilirubin,Urine Negative (Negative); Blood,Urine Negative (Negative); Color,Urine Yellow; Glucose,Urine (UA) Negative (Negative); Ketones,Urine Negative (Negative); Leukocyte Esterase,Urine Negative (Negative); Nitrite,Urine Negative (Negative); Protein,Urine Trace (Negative); Specific Gravity,Urine 1.017 (1.001-1.035); Urobilinogen,Urine <2.0 mg/dL (<2.0)
[2019-04-15 02:25] LABS: Protein, Total 5.9 g/dL (6.2-8.2)
[2019-04-15 02:40] LABS: C Reactive Protein <0.4 mg/dL (0.0-0.8)
[2019-04-15 03:11] LABS: Hepatitis B Surface Antigen Non-Reactive (Non-Reactive); Hepatitis C IgG Antibody Non-Reactive (Non-Reactive)
[2019-04-15 03:52] LABS: Hemoglobin A1C 5.4 % (4.0-6.0)
[2019-04-15 07:11] LABS: Anti-DNA, DS unit <1.0 IU/mL; Anti-Smith Ab Interp NEGATIVE (NEGATIVE); Cardiolipin Ab IgG Interp NEGATIVE (NEGATIVE); Cardiolipin Ab IgM Interp NEGATIVE (NEGATIVE); Cardiolipin IgM Antibody 2.5 U/mL; Centromere Antibody <0.2 AI; Centromere Antibody Interp NEGATIVE (NEGATIVE); DNA Double-Stranded NEGATIVE (NEGATIVE); Scleroderma SC-70 Ab <0.2 AI
[2019-04-15 08:30] LABS: Free Kappa Lt Chain Qnt, Serum 3.46 mg/dL (0.33-1.94)
[2019-04-15 11:54] LABS: Complement C3 91.2 mg/dL (80.0-207.0)
[2019-04-15 13:44] LABS: APTT 39 Sec(s) (<43); Dilute Russell Viper Venom 39 Sec(s) (<44)
[2019-04-15 15:20] LABS: C-ANCA <1:20 Titer (<1:20)
== END | disposition home or self-care (01) ==
LOC: LABWHC1 16:57
PROVIDERS: ATTEND Internal Medicine Rheumatology
DX: R76.8 Other specified abnormal immunological findings in serum (principal); D68.59 Other primary thrombophilia; Z11.59 Encounter for screening for other viral diseases
CPT/HCPCS: 36415; 81003; 82085; 82607; 83036; 83516; 83883; 84165; 85613; 85652; 85730; 86038; 86140; 86147; 86160; 86162; 86225; 86235; 86255; 86334; 86618; 86780; 86803; 87340

== ENCOUNTER 2019-05-29 08:51 | Inpatient (IN) | payer MEDICARE ==
--- NOTE | 2019-05-29 09:43 | ED ---
General Adult HPI <Stevie Harrington - Last Filed: 05/29/19 12:23> - General Source: patient Mode of arrival: wheelchair Limitations: altered mental status, physical limitation <Cande Esparza - Last Filed: 05/29/19 14:06> - General Chief complaint: Fall Stated complaint: fall/SOB Time Seen by Provider: 05/29/19 08:59 - History of Present Illness Initial comments: Patient is an 83-year-old male, with history of hypertension, CVA, presenting to the emergency Department with complaints of increasing shortness of breath over the past 3 weeks. Patient states he fell approximately 3 weeks ago landing mostly on his right ribs and right arm. There was no LOC. Patient is not on blood thinners. Patient states since that fall he has been having increase in shortness of breath. He notices he is unable to walk across the family room without having to stop and take multiple deep breaths. Patient does not have a history of asthma or COPD. Patient denies having chest pain, fever, chills. He does admit to having a cough with mild sputum production. Admits to mild pain on the right lateral ribs. He states he has a history of right shoulder injury and was supposed to have a total shoulder replacement however that was put on hold. Patient normally has decreased range of motion a lot on the right side. Patient denies any abdominal pain, nausea, vomiting, diarrhea. He denies any lo wer extremity pain. She has no other complaints at this time. Upon arrival to the ER, his vital signs are stable. (Cande Esparza) - Related Data Home Medications Medication Instructions Recorded Confirmed Allopurinol [Zyloprim] 300 mg PO DAILY 09/01/13 01/06/18 hydrALAZINE HCL [Apresoline] 25 mg PO BID 09/01/13 01/06/18 Aspirin 325 mg PO DAILY 08/02/16 01/06/18 EPINEPHrine (Auto Inject) [Epipen] 0.3 mg IM ONCE PRN 01/06/17 12/30/17 Gabapentin [Neurontin] 300 mg PO BID 06/13/17 01/06/18 Pantoprazole Sodium [Protonix] 40 mg PO AC-BRKFST 08/04/17 01/06/18 Cholecalciferol (Vitamin D3) 2,000 unit PO DAILY 11/13/17 01/06/18 [Vitamin D3] Hydroxyurea [Hydrea] 2,000 mg PO Q48H 11/13/17 01/06/18 Rivastigmine 9.5MG/24Hr Patch 1 patch TRANSDERM Q24HR 05/29/19 05/29/19 [Exelon 9.5MG/24Hr Patch] predniSONE See Taper PO DIRECTED 05/29/19 05/29/19 Previous Rx's Medication Instructions Recorded Metoprolol Tartrate 25 mg PO BID #60 tab 08/06/17 Allergies Allergy/AdvReac Type Severity Reaction Status Date / Time venom-honey bee Allergy Anaphylaxis Verified 05/29/19 13:10 [bee venom (honey bee)] Review of Systems ROS Other: All systems not noted in ROS Statement are negative. <Stevie Harrington - Last Filed: 05/29/19 12:23> ROS Other: All systems not noted in ROS Statement are negative. <Cande Esparza - Last Filed: 05/29/19 14:06> ROS Statement: Those systems with pertinent positive or pertinent negative responses have been documented in the HPI. Past Medical History Past Medical History: Cancer, CVA/TIA, Dementia, Eye Disorder, GERD/Reflux, Hyperlipidemia, Hypertension, Osteoarthritis (OA), Renal Disease Additional Past Medical History / Comment(s): Hx. 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 Syncope. History of Any Multi-Drug Resistant Organisms: None Reported Past Surgical History: Adenoidectomy, Hernia Repair, Joint Replacement, Orthopedic Surgery, Tonsillectomy Additional Past Surgical History / Comment(s): R kidney donor, kiesha hip replacement, L hand trigger finger,uvuloplasty, left carotid stent, bilateral inguinal hernia repair, deviated septum repair, colonoscopy, R cataract removal with lens; Pain procedures. Past Anesthesia/Blood Transfusion Reactions: No Reported Reaction Past Psychological History: No Psychological Hx Reported Smoking Status: Never smoker Past Alcohol Use History: None Reported Past Drug Use History: None Reported - Past Family History Father Family Medical History: CVA/TIA Additional Family Medical History / Comment(s): Father at 80 from stroke Mother Family Medical History: No Reported History Additional Family Medical History / Comment(s): Mother at age 55 from polycystic kidney disease. Brother(s) Additional Family Medical History / Comment(s): Patient has 1 brother with multiple medical problems including diabetes. Sister(s) Family Medical History: Renal Disease Additional Family Medical History / Comment(s): Patient has one sister that at age 60 from kidney failure due to polycystic kidney disease. Daughter(s) Family Medical History: No Reported History Additional Family Medical History / Comment(s): Patient has one daughter with no major medical problems. Son(s) Additional Family Medical History / Comment(s): Patient has 5 sons. 2 at premature . One while skiing from a myocardial infarction at age 32. One son is alive with no major medical problems. <Cande Esparza - Last Filed: 05/29/19 14:06> General Exam Limitations: altered mental status, physical limitation <Cande Esparza - Last Filed: 05/29/19 14:06> - General Exam Comments Initial Comments: GENERAL: Well-appearing, well-nourished and in no acute distress. HEAD: Atraumatic, normocephalic. Mild superficial healed abrasion to the left forehead. No signs of basal skull fracture. EYES: Pupils equal round and reactive to light, extraocular movements intact, sclera anicteric, conjunctiva are normal. ENT: TMs normal, nares patent, oropharynx clear without exudates. Moist mucous membranes. NECK: Normal range of motion, supple without lymphadenopathy or JVD. No midline tend erness. LUNGS: Breath sounds clear to auscultation bilaterally and equal. No wheezes rales or rhonchi. HEART: Regular rate and rhythm without murmurs, rubs or gallops. ABDOMEN: Soft, nontender, normoactive bowel sounds. No guarding, no rebound. No masses appreciated. : Deferred EXTREMITIES: Decreased range of motion of the right shoulder which is patient's normal. Mild pain with palpation of the anterior right shoulder. Neurovascular intact. No pitting or edema. No clubbing or cyanosis. NEUROLOGICAL: Cranial nerves II through XII grossly intact. Normal speech. PSYCH: Normal mood, normal affect. SKIN: Warm, Dry, normal turgor, no rashes or lesions noted. (Cande Esparza) Course Vital Signs 05/29/19 05/29/19 05/29/19 08:56 09:35 10:32 Temperature 98.0 F Pulse Rate 74 67 64 Respiratory 18 18 18 Rate Blood Pressure 107/64 114/81 122/61 O2 Sat by Pulse 96 95 95 Oximetry 05/29/19 05/29/19 11:59 12:54 Temperature 98 F Pulse Rate 71 67 Respiratory 18 18 Rate Blood Pressure 127/79 122/60 O2 Sat by Pulse 95 94 L Oximetry EKG Findings - EKG Comments: EKG Findings:: Ventricular rate 67, P on arrival 172, QTC 469. Normal sinus rhythm, normal ECG. No signs of acute ischemia. <Cande Esparza - Last Filed: 05/29/19 14:06> Medical Decision Making - Lab Data Result diagrams: 05/29/19 09:25 05/29/19 09:25 <Stevie Harrington - Last Filed: 05/29/19 12:23> - Lab Data Result diagrams: 05/29/19 09:25 05/29/19 09:25 <Cande Esparza - Last Filed: 05/29/19 14:06> - Medical Decision Making 83-year-old male with 3 weeks of dyspnea. Patient has elevated d-dimer concerning for pulmonary embolism. Nuclear medicine scan is performed which shows high probability of pulmonary embolism. He is initiated on high-dose heparin. His vital signs are stable. I discussed case with Dr. Mendoza who will admit the patient. Pulmonology placed on consult. (Stevie Harrington) Patient is an 83-year-old male here for dyspnea that has been increasing for 3 weeks. Patient states he took a fall 3 weeks ago landing mostly on his right side and was concerned he might have injured his ribs. He is having very minimal right-sided rib pain. Vital signs are stable upon arrival.EKG shows no acute findings. Chest x-ray shows possible anterior rib fractures that are old in nature. No other acute findings. Lab work was obtained, d-dimer was 5.37. Troponin was normal. BNP is 2090. VQ scan was performed and has a high probability for PE. Patient was started on high-dose heparin. Patient was accepted by Dr. Mendoza. Dr. Craig will be on consult. Case was discussed in detail with Dr. Harrington. (Cande Esparza) - Lab Data Lab Results 05/29/19 05/29/19 05/29/19 Range/Units 09:25 09:25 09:25 WBC 2.9 L (3.8-10.6) k/uL RBC 2.65 L (4.30-5.90) m/uL Hgb 11.2 L (13.0-17.5) gm/dL Hct 34.3 L (39.0-53.0) % MCV 129.4 H (80.0-100.0) fL MCH 42.4 H (25.0-35.0) pg MCHC 32.8 (31.0-37.0) g/dL RDW 20.6 H (11.5-15.5) % Plt Count 385 (150-450) k/uL Neutrophils % (Manual) 71 % Band Neutrophils % 1 % Lymphocytes % (Manual) 20 % Monocytes % (Manual) 7 % Eosinophils % (Manual) 2 % Basophils % (Manual) 1 % Neutrophils # (Manual) 2.00 (1.3-7.7) k/uL Lymphocytes # (Manual) 0.58 L (1.0-4.8) k/uL Monocytes # (Manual) 0.20 (0-1.0) k/uL Eosinophils # (Manual) 0.06 (0-0.7) k/uL Basophils # (Manual) 0.03 (0-0.2) k/uL Nucleated RBCs 5 H (0-0) /100 WBC Manual Slide Review Performed Hypersegmented Neuts Present Polychromasia Present Hypochromasia Slight Poikilocytosis Slight Anisocytosis Moderate Macrocytosis Marked A PT 10.8 (9.0-12.0) sec INR 1.0 (<1.2) APTT 22.0 (22.0-30.0) sec D-Dimer 5.37 H (<0.60) mg/L FEU Sodium 135 L (137-145) mmol/L Potassium 4.6 (3.5-5.1) mmol/L Chloride 105 (98-107) mmol/L Carbon Dioxide 22 (22-30) mmol/L Anion Gap 8 mmol/L BUN 31 H (9-20) mg/dL Creatinine 1.39 H (0.66-1.25) mg/dL Est GFR (CKD-EPI)AfAm 54 (>60 ml/min/1.73 sqM) Est GFR (CKD-EPI)NonAf 47 (>60 ml/min/1.73 sqM) Glucose 116 H (74-99) mg/dL Calcium 9.0 (8.4-10.2) mg/dL Magnesium 2.2 (1.6-2.3) mg/dL Total Bilirubin 1.2 (0.2-1.3) mg/dL AST 24 (17-59) U/L ALT 10 (4-49) U/L Alkaline Phosphatase 47 (38-126) U/L Troponin I (0.000-0.034) ng/mL NT-Pro-B Natriuret Pep pg/mL Total Protein 5.9 L (6.3-8.2) g/dL Albumin 3.5 (3.5-5.0) g/dL 05/29/19 05/29/19 Range/Units 09:25 09:25 WBC (3.8-10.6) k/uL RBC (4.30-5.90) m/uL Hgb (13.0-17.5) gm/dL Hct (39.0-53.0) % MCV (80.0-100.0) fL MCH (25.0-35.0) pg MCHC (31.0-37.0) g/dL RDW (11.5-15.5) % Plt Count (150-450) k/uL Neutrophils % (Manual) % Band Neutrophils % % Lymphocytes % (Manual) % Monocytes % (Manual) % Eosinophils % (Manual) % Basophils % (Manual) % Neutrophils # (Manual) (1.3-7.7) k/uL Lymphocytes # (Manual) (1.0-4.8) k/uL Monocytes # (Manual) (0-1.0) k/uL Eosinophils # (Manual) (0-0.7) k/uL Basophils # (Manual) (0-0.2) k/uL Nucleated RBCs (0-0) /100 WBC Manual Slide Review Hypersegmented Neuts Polychromasia Hypochromasia Poikilocytosis Anisocytosis Macrocytosis PT (9.0-12.0) sec INR (<1.2) APTT (22.0-30.0) sec D-Dimer (<0.60) mg/L FEU Sodium (137-145) mmol/L Potassium (3.5-5.1) mmol/L Chloride (98-107) mmol/L Carbon Dioxide (22-30) mmol/L Anion Gap mmol/L BUN (9-20) mg/dL Creatinine (0.66-1.25) mg/dL Est GFR (CKD-EPI)AfAm (>60 ml/min/1.73 sqM) Est GFR (CKD-EPI)NonAf (>60 ml/min/1.73 sqM) Glucose (74-99) mg/dL Calcium (8.4-10.2) mg/dL Magnesium (1.6-2.3) mg/dL Total Bilirubin (0.2-1.3) mg/dL AST (17-59) U/L ALT (4-49) U/L Alkaline Phosphatase (38-126) U/L Troponin I <0.012 (0.000-0.034) ng/mL NT-Pro-B Natriuret Pep 2090 pg/mL Total Protein (6.3-8.2) g/dL Albumin (3.5-5.0) g/dL Critical Care Time Critical Care Time: Yes Total Critical Care Time: 35 (Patient presented with dyspnea for 3 weeks. Lab work was obtained and showed a d-dimer 5.3. VQ scan was performed and showed an acute PE. Patient was started on high-dose heparin. Patient was admitted to the hospital.) <Cande Esparza - Last Filed: 05/29/19 14:06> Disposition <Stevie Harrington - Last Filed: 05/29/19 12:23> Is patient prescribed a controlled substance at d/c from ED?: No Decision Date: 05/29/19 Decision Time: 12:30 <Cande Esparza - Last Filed: 05/29/19 14:06> Clinical Impression: Acute pulmonary embolism, Dyspnea Disposition: ADMITTED IP TO THIS HOSP Condition: Good Referrals: Laurita Sandra MD [Primary Care Provider] - 1-2 days
[2019-05-29 09:56] LABS: Anisocytosis Moderate; HCT 34.3 % (39.0-53.0); HGB 11.2 gm/dL (13.0-17.5); Hypochromasia Slight; MCHC 32.8 g/dL (31.0-37.0); MCV 129.4 fL (80.0-100.0); Macrocytosis Marked; Mean Platelet Volume 8.9; Platelet Count 385 k/uL (150-450); Poikilocytosis Slight; RBC 2.65 m/uL (4.30-5.90); RDW 20.6 % (11.5-15.5)
[2019-05-29 09:58] LABS: Albumin 3.5 g/dL (3.5-5.0); Magnesium 2.2 mg/dL (1.6-2.3); Potassium 4.6 mmol/L (3.5-5.1); Total Bilirubin 1.2 mg/dL (0.2-1.3); Total Protein 5.9 g/dL (6.3-8.2)
[2019-05-29 10:00] LABS: MCH 42.4 pg (25.0-35.0)
[2019-05-29 10:09] LABS: Prothrombin Time 10.8 sec (9.0-12.0)
[2019-05-29 10:13] LABS: D-Dimer 5.37 mg/L FEU (<0.60)
--- NOTE | 2019-05-29 10:32 | XR ---
EXAMINATION TYPE: XR chest 2V, XR ribs RT DATE OF EXAM: 05/29/2019 COMPARISON: Prior chest x-ray dated 10/06/2017 HISTORY: Difficulty breathing TECHNIQUE: Frontal and lateral views of the chest are obtained. 4 views of the right ribs. FINDINGS: There is nodular density superimposed over the posterior right sixth rib, anterior right f ourth rib on the chest x-ray. There is no evident pneumothorax or pleural effusion. Cardiac mediastin al silhouette, pulmonary vascularity and manuel within normal limits. Multilevel spondylosis is present . Surgical clips are incidentally noted in the right upper quadrant. Linear density within the right lung present at the base. Aorta is dense. Cortical thickening the distal right clavicle suggestive of remote trauma. IMPRESSION: Suggestive of possible anterior rib fractures of indeterminate age, bone scan or chest C T could be performed for additional evaluation.
--- NOTE | 2019-05-29 10:34 | XR ---
Right shoulder HISTORY: Trauma 3 weeks prior, pain 3 views the right shoulder Cortical thickening the distal right, cortical consistent with old trauma and healing. There is hyper trophic change at the acromioclavicular joint. Remodeling of the right humeral head is present, there is joint space loss and marginal spurring at the glenohumeral joint. Distal acromial spur suspected. IMPRESSION: Osteoarthritis. Evidence of remote trauma. No acute fracture or dislocation evident.
[2019-05-29 10:39] LABS: Band Neutrophils % 1 %; Basophils # (M) 0.03 k/uL (0-0.2); Eosinophils # (M) 0.06 k/uL (0-0.7); Neutrophils % (M) 71 %; Nucleated Red Blood Cells 5 /100 WBC (0-0); Total Cells Counted 200
[2019-05-29 10:40] LABS: Lymphocytes # (M) 0.58 k/uL (1.0-4.8); Polychromasia Present; WBC 2.9 k/uL (3.8-10.6)
[2019-05-29 10:42] LABS: Hypersegmented Neutrophils Present
[2019-05-29] MEDS ORDERED: HEPARIN SODIUM,PORCINE 5,000 UNIT/ML 1 ML VIAL IV PRN (12:03)
[2019-05-29] MEDS ORDERED: HEPARIN SODIUM,PORCINE 10,000 UNIT/ML 1 ML VIAL IV ONE (12:03)
--- NOTE | 2019-05-29 12:04 | NM ---
EXAMINATION TYPE: NM pul vent and perfuse DATE OF EXAM: 05/29/2019 COMPARISON: Chest x-ray same date HISTORY: Trauma, pain, elevated d-dimer and dyspnea, cough TECHNIQUE: Utilizing inhalation of 39.1 mCi Tc 99m DTPA aerosol and intravenous injection of 4.8 mCi of Tc 99m MAA, ventilation and perfusion images are acquired post injection in multiple projections. FINDINGS: There is decreased radio pharmaceutical uptake on perfusion imaging within the right lower lobe, righ t middle lobe as compared to ventilation imaging. Suspect decreased uptake on perfusion as compared t o ventilation imaging also within the lingula. IMPRESSION: High probability for pulmonary embolism. Case discussed with Dr. Harrington telephonically at the time of interpretation.
[2019-05-29] MEDS: HEPARIN SOD,PORK IN 0.45% NACL 25,000 UNIT in 0.45% NACL 1 250ML.BAG IV SCH (12:13)
[2019-05-29] MEDS ORDERED: NALOXONE 0.4 MG/ML 1 ML VIAL IV PRN (12:15)
--- NOTE | 2019-05-29 14:22 | P.CNPUL ---
History of Present Illness Consult date: 05/29/19 Requesting physician: Laurita Sandra Reason for consult: dyspnea, abnormal CXR/CT Chief complaint: Increasing shortness of breath for 3 weeks History of present illness: This is a very pleasant 83-year-old gentleman who follows with Dr. Sandra as his primary care provider. He has a history of hypertension, CVA/TIA, gastroesophageal reflux disease, hyperlipidemia, osteoarthritis, GI bleed with diverticulitis, gout, chronic back pain, rheumatic fever as a child, carotid stenosis with left carotid stent placement. The patient is a lifelong nonsmoker. He had developed increasing shortness of breath over the past 3 weeks. He states he had taken a fall and landed mostly on his right ribs and r ight arm. No loss of consciousness. The patient was not on any blood thinners at the time. He presented to the emergency room today with increasing shortness of breath and right-sided chest discomfort. Chest x-ray revealed possible anterior rib fractures of indeterminate age. No evidence of pneumothorax or pleural effusion. Linear density within the right lung base. Rib x-rays revealed anterior rib fractures of right 6 rib and anterior fourth rib. Right shoulder x-ray revealed osteoarthritis. No acute fracture or dislocation. White count 2.9. Hemoglobin 11.2. D-dimer 5.37. Sodium 135. Potassium 4.6. Creatinine 1.39. Troponins negative. ProBNP 2090. VQ scan revealed high pro bability for pulmonary embolism with decreased radiopharmaceutical uptake on perfume and imaging within the right lower lobe, right middle lobe. There is also suggestive PE in the lingula.. He has been initiated on a heparin drip. He is seen today in consultation on the regular medical floor. He is awake and alert. Somewhat of a poor historian. Denies any significant shortness of breath. Still having ongoing right-sided chest discomfort. He is maintaining O2 saturations in the 90s on room air. He's afebrile. Hemodynamically stable. Review of Systems REVIEW OF SYSTEMS: CONSTITUTIONAL: Denies any recent significant weight loss or weight gain. EYES: Denies change in vision. EARS, NOSE, MOUTH, THROAT: Denies headaches, denies sore throat. CARDIOVASCULAR: Positive for right-sided chest pain, no palpitations or syncopal episodes. RESPIRATORY: Positive for shortness of breath, no cough, congestion or hemoptysis. GASTROINTESTINAL: Denies change in appetite, denies abdominal pain GENITOURINARY: Denies hematuria, denies infections. MUSKULOSKELETAL: Denies pain, denies swelling. INTEGUMENTARY: Denies rash, denies eczema. NEUROLOGICAL: Denies recent memory loss, no recent seizure activity. PSYCHIATRIC: Denies anxiety, denies depression. HEMATOLOGIC/LYMPHATIC: Denies anemia, denies enlarged lymph nodes. Past Medical History Past Medical History: Cancer, CVA/TIA, Dementia, Eye Disorder, GERD/Reflux, Hyperlipidemia, Hypertension, Osteoarthritis (OA), Renal Disease Additional Past Medical History / Comment(s): Hx. 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 Syncope. History of Any Multi-Drug Resistant Organisms: None Reported Past Surgical History: Adenoidectomy, Hernia Repair, Joint Replacement, Orthopedic Surgery, Tonsillectomy Additional Past Surgical History / Comment(s): R kidney donor, kiesha hip replacement, L hand trigger finger,uvuloplasty, left carotid stent, bilateral inguinal hernia repair, deviated septum repair, colonoscopy, R cataract removal with lens; Pain procedures. Past Anesthesia/Blood Transfusion Reactions: No Reported Reaction Past Psychological History: No Psychological Hx Reported Smoking Status: Never smoker Past Alcohol Use History: None Reported Past Drug Use History: None Reported - Past Family History Father Family Medical History: CVA/TIA Additional Family Medical History / Comment(s): Father at 80 from stroke Mother Family Medical History: No Reported History Additional Family Medical History / Comment(s): Mother at age 55 from polycystic kidney disease. Brother(s) Additional Family Medical History / Comment(s): Patient has 1 brother with multiple medical problems including diabetes. Sister(s) Family Medical History: Renal Disease Additional Family Medical History / Comment(s): Patient has one sister that at age 60 from kidney failure due to polycystic kidney disease. Daughter(s) Family Medical History: No Reported History Additional Family Medical History / Comment(s): Patient has one daughter with no major medical problems. Son(s) Additional Family Medical History / Comment(s): Patient has 5 sons. 2 at premature . One while skiing from a myocardial infarction at age 32. One son is alive with no major medical problems. Medications and Allergies Home Medications Medication Instructions Recorded Confirmed Type Allopurinol [Zyloprim] 300 mg PO DAILY 09/01/13 01/06/18 History hydrALAZINE HCL [Apresoline] 25 mg PO BID 09/01/13 01/06/18 History Aspirin 325 mg PO DAILY 08/02/16 01/06/18 History EPINEPHrine (Auto Inject) [Epipen] 0.3 mg IM ONCE PRN 01/06/17 12/30/17 History Gabapentin [Neurontin] 300 mg PO BID 06/13/17 01/06/18 History Pantoprazole Sodium [Protonix] 40 mg PO AC-BRKFST 08/04/17 01/06/18 History Metoprolol Tartrate 25 mg PO BID #60 tab 08/06/17 01/06/18 Rx Cholecalciferol (Vitamin D3) 2,000 unit PO DAILY 11/13/17 01/06/18 History [Vitamin D3] Hydroxyurea [Hydrea] 2,000 mg PO Q48H 11/13/17 01/06/18 History Rivastigmine 9.5MG/24Hr Patch 1 patch TRANSDERM Q24HR 05/29/19 05/29/19 History [Exelon 9.5MG/24Hr Patch] predniSONE See Taper PO DIRECTED 05/29/19 05/29/19 History Allergies Allergy/AdvReac Type Severity Reaction Status Date / Time venom-honey bee Allergy Anaphylaxis Verified 05/29/19 13:10 [bee venom (honey bee)] Physical Exam Vitals: Vital Signs Temp Pulse Resp BP Pulse Ox 05/29/19 12:54 98 F 67 18 122/60 94 L 05/29/19 11:59 71 18 127/79 95 05/29/19 10:32 64 18 122/61 95 05/29/19 09:35 67 18 114/81 95 05/29/19 08:56 98.0 F 74 18 107/64 96 Intake and Output 05/28/19 05/29/19 05/29/19 22:59 06:59 14:59 Other: # Voids 1 Weight 95.254 kg GENERAL EXAM: Alert, pleasant 83-year-old gentleman, on room air, right-sided chest discomfort and pain with exertion. HEAD: Normocephalic. EYES: Normal reaction of pupils, equal size. NOSE: Clear with pink turbinates. THROAT: No erythema or exudates. NECK: No masses, no JVD. CHEST: Pain on palpation the right chest No chest wall deformity. LUNGS: Equal air entry with faint crackles in the right lung base. CVS: S1 and S2 normal with no audible murmur, regular rhythm. ABDOMEN: No hepatosplenomegaly, normal bowel sounds, no guarding or rigidity. SPINE: No scoliosis or deformity SKIN: No rashes CENTRAL NERVOUS SYSTEM: No focal deficits, tone is normal in all 4 extremities. EXTREMITIES: There is no peripheral edema. No clubbing, no cyanosis. Peripheral pulses are intact. Results - Laboratory Findings CBC and BMP: 05/29/19 09:25 05/29/19 09:25 PT/INR, D-dimer PT 10.8 sec (9.0-12.0) 05/29/19 09:25 INR 1.0 (<1.2) 05/29/19 09:25 D-Dimer 5.37 mg/L FEU (<0.60) H 05/29/19 09:25 Abnormal lab findings: Abnormal Labs 05/29/19 05/29/19 05/29/19 09:25 09:25 09:25 WBC 2.9 L RBC 2.65 L Hgb 11.2 L Hct 34.3 L MCV 129.4 H MCH 42.4 H RDW 20.6 H Lymphocytes # (Manual) 0.58 L Nucleated RBCs 5 H Macrocytosis Marked A D-Dimer 5.37 H Sodium 135 L BUN 31 H Creatinine 1.39 H Glucose 116 H Total Protein 5.9 L - Diagnostic Findings Chest x-ray: image reviewed Assessment and Plan Assessment: 1 Dyspnea secondary to bilateral pulmonary emboli more so on the right 2 Right-sided chest discomfort secondary to multiple right-sided rib fractures from recent fall approximately 3 weeks ago 3 Remote history of previous PE, patient is unclear to the details 4 Acute renal failure current creatinine 1.39 5 History of TIA 6 Dementia 7 Hypertension 8 Hyperlipidemia 9 History of GI bleed 10 History of diverticulitis 11 History of donated right kidney 12 History of gout 13 History of chronic back pain 14 Carotid stenosis with previous left carotid stent 15 Lifelong nonsmoker Plan: The patient was seen and evaluated by Dr. Patel Continued on a heparin drip for now and to be transitioned to oral agent Questionable history of previous PE, may require lifelong anticoagulation however the patient is a fall risk and previous history of GI bleed Currently maintaining O2 saturations in the 90s on room air Add incentive spirometer We'll continue to follow make further recommendations based on his clinical status I, the cosigning physician, performed a history & physical examination of the patient. Lungs sounds with crackles in the right lung base. Maintaining good O2 saturations in the 90s on room air. I discussed the assessment and plan of care with my nurse practitioner, Nasima Hadley. I attest to the above consultation as dictated by her. Time with Patient: Greater than 30
[2019-05-29] MEDS ORDERED: ACETAMINOPHEN TAB 325 MG TAB PO PRN (14:33)
[2019-05-29] MEDS: METOPROLOL TARTRATE 25 MG TAB PO SCH (20:53)
[2019-05-29] MEDS: hydrALAZINE HCL 25 MG TAB PO SCH (20:53)
[2019-05-29] MEDS: GABAPENTIN 300 MG CAP PO SCH (20:53)
--- NOTE | 2019-05-29 21:29 | P.HPIM ---
History of Present Illness H&P Date: 05/29/19 Chief Complaint: Severe dyspnea and shortness of breath, bilateral pulmonary embolism, hyper 83-year-old male one of our office patient with past medical history of hypertension, CVA, GERD, hyperlipidemia, previous history of gastrointestinal bleed, history of dramatic fever as a child and carotid stenosis with left carotid stent placement in the past. Patient developed to have increased and worsening shortness of breath for the last 3 weeks following a fall landed mostly on the right rib area with no loss of consciousness no other injury or trauma he was not any blood thinner medication at the time he presented to [facility] today with worsening symptoms chest x-ray revealed possible anterior rib fracture. D-dimer was mildly elevated with moderately elevated creatinine patient ended up going for VQ scan him back with high probability for pulmonary embolism with decrease perfusion and uptake of the right lower lobe and right middle lobe to suggestive of pulmonary embolism. Patient was started on heparin drip will be admitted to the hospital to be able to convert him into oral anticoagulation in the next 48 hours and consult pulmonary. With his creatinine been mildly elevated patient will be hydrated and if possible to repeat CTA for better confirmation of his PE. Review of Systems CONSTITUTIONAL: Well-developed no acute respiratory distress. EYES: No icterus sclerae, no conjunctivitis. EARS, NOSE, MOUTH, THROAT, and FACE: No sore throat, lymphadenopathy, carotid bruits or deformity. RESPIRATORY: Severe dyspnea and shortness of breath with drip fracture and pulmonary embolism. CARDIOVASCULAR: No CP, Palpitation, PND, Orthopnea, or angina. GASTROINTESTINAL: No Abd pain, Nausea or vomiting, no Diarrhea or constipation, No GI Bleed, no distention or masses. GENITOURINARY: Negative for Hematuria or UTI, no kidney stones. INTEGUMENT/BREAST: Negative for any muscular injury with mild osteoarthritis.. HEMATOLOGIC/LYMPHATIC: Negative for bleed or purpura. MUSCULOSKELTAL: Negative for Myalgia or arthralgia. NEURLOGICAL: No LOC, Sz or syncope, blurred vision dizziness or abnormality.. BEHAVIORAL/PSYCH: Negative. ENDOCRINE: Negative. Past Medical History Past Medical History: Cancer, CVA/TIA, Dementia, Eye Disorder, GERD/Reflux, Hyperlipidemia, Hypertension, Osteoarthritis (OA), Renal Disease Additional Past Medical History / Comment(s): Hx. 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 Syncope. History of Any Multi-Drug Resistant Organisms: None Reported Past Surgical History: Adenoidectomy, Hernia Repair, Joint Replacement, Orthopedic Surgery, Tonsillectomy Additional Past Surgical History / Comment(s): R kidney donor, kiesha hip replacement, L hand trigger finger,uvuloplasty, left carotid stent, bilateral inguinal hernia repair, deviated septum repair, colonoscopy, R cataract removal with lens; Pain procedures. Past Anesthesia/Blood Transfusion Reactions: No Reported Reaction Past Psychological History: No Psychological Hx Reported Smoking Status: Never smoker Past Alcohol Use History: None Reported Past Drug Use History: None Reported - Past Family History Father Family Medical History: CVA/TIA Additional Family Medical History / Comment(s): Father at 80 from stroke Mother Family Medical History: No Reported History Additional Family Medical History / Comment(s): Mother at age 55 from polycystic kidney disease. Brother(s) Additional Family Medical History / Comment(s): Patient has 1 brother with multiple medical problems including diabetes. Sister(s) Family Medical History: Renal Disease Additional Family Medical History / Comment(s): Patient has one sister that at age 60 from kidney failure due to polycystic kidney disease. Daughter(s) Family Medical History: No Reported History Additional Family Medical History / Comment(s): Patient has one daughter with no major medical problems. Son(s) Additional Family Medical History / Comment(s): Patient has 5 sons. 2 at premature . One while skiing from a myocardial infarction at age 32. One son is alive with no major medical problems. Medications and Allergies Home Medications Medication Instructions Recorded Confirmed Type Allopurinol [Zyloprim] 300 mg PO DAILY 09/01/13 05/29/19 History hydrALAZINE HCL [Apresoline] 25 mg PO BID 09/01/13 05/29/19 History Aspirin 325 mg PO DAILY 08/02/16 05/29/19 History EPINEPHrine (Auto Inject) [Epipen] 0.3 mg IM ONCE PRN 01/06/17 05/29/19 History Gabapentin [Neurontin] 300 mg PO BID 06/13/17 05/29/19 History Pantoprazole Sodium [Protonix] 40 mg PO AC-BRKFST 08/04/17 05/29/19 History Metoprolol Tartrate 25 mg PO BID #60 tab 08/06/17 05/29/19 Rx Cholecalciferol (Vitamin D3) 2,000 unit PO DAILY 11/13/17 05/29/19 History [Vitamin D3] Hydroxyurea [Hydrea] 2,000 mg PO DAILY 11/13/17 05/29/19 History Rivastigmine 9.5MG/24Hr Patch 1 patch TRANSDERM Q24HR 05/29/19 05/29/19 History [Exelon 9.5MG/24Hr Patch] predniSONE See Taper PO DIRECTED 05/29/19 05/29/19 History Allergies Allergy/AdvReac Type Severity Reaction Status Date / Time venom-honey bee Allergy Anaphylaxis Verified 05/29/19 13:10 [bee venom (honey bee)] Physical Exam Vitals: Vital Signs Temp Pulse Pulse Resp BP BP Pulse Ox 05/29/19 14:12 97.8 F 73 20 122/56 94 L 05/29/19 12:54 98 F 67 18 122/60 94 L 05/29/19 11:59 71 18 127/79 95 05/29/19 10:32 64 18 122/61 95 05/29/19 09:35 67 18 114/81 95 05/29/19 08:56 98.0 F 74 18 107/64 96 Intake and Output 05/29/19 05/29/19 05/29/19 06:59 14:59 22:59 Other: # Voids 1 Weight 95.254 kg General Appearance: Alert, cooperative, no distress, appears stated age. Neck HEENT: Supple, no lymphadenopathy, no thyroid enlargement, no carotid bruits. Lungs: Decreased breath some bilaterally with fine rhonchi no crackles or wheezes. Chest Wall: Decrease expansion with deep inspiration no tenderness and no deformity was found on exam, no costochondral pain or discomfort. Heart: Regular rate and rhythm, S1, S2 normal, no murmur, rub or gallop. Back: Symmetric, no curvature, ROM normal, no CVA tenderness. Abdomen: Soft, non-tender, bowel sounds active all four quadrants, no masses, no organomegaly. Extremities: Extremities normal, atraumatic, no cyanosis or edema. Pulses: 2+ and symmetric. Skin: Skin color, texture, tugor normal, no rashes or lesions. Neurologic: Alert oriented x3 cranial nerves II through XII intact, no motor deficit, no abnormal balance or gait. Results CBC & Chem 7: 05/29/19 09:25 05/29/19 09:25 Labs: Abnormal Lab Results - Last 24 Hours (Table) 05/29/19 05/29/19 05/29/19 Range/Units 09:25 09:25 09:25 WBC 2.9 L (3.8-10.6) k/uL RBC 2.65 L (4.30-5.90) m/uL Hgb 11.2 L (13.0-17.5) gm/dL Hct 34.3 L (39.0-53.0) % MCV 129.4 H (80.0-100.0) fL MCH 42.4 H (25.0-35.0) pg RDW 20.6 H (11.5-15.5) % Lymphocytes # (Manual) 0.58 L (1.0-4.8) k/uL Nucleated RBCs 5 H (0-0) /100 WBC Macrocytosis Marked A D-Dimer 5.37 H (<0.60) mg/L FEU Sodium 135 L (137-145) mmol/L BUN 31 H (9-20) mg/dL Creatinine 1.39 H (0.66-1.25) mg/dL Glucose 116 H (74-99) mg/dL Total Protein 5.9 L (6.3-8.2) g/dL Thrombosis Risk Factor Assmnt - DVT/VTE Prophylaxis DVT/VTE Prophylaxis: Pharmacologic Prophylaxis ordered, Mechanical Prophylaxis ordered - Choose All That Apply Each Risk Factor Represents 3 Points: Age 75 years or older, History of DVT/PE Thrombosis Risk Factor Assessment Total Risk Factor Score: 6 Thrombosis Risk Factor Assessment Level: High Risk Assessment and Plan Assessment: 1 Acute pulmonary embolism: Patient will be on heparin drip per protocol if possible to confirm the PE by running CTA of the chest also echocardiogram will be order to see what's the right side pressure. Meanwhile continue heparin drip and try to convert patient in 2 Xarelto or Eliquis over the next 2 days. Patient will be seen by pulmonary. Problem might cause the acute pulmonary embolism is the trauma to the chest wall from rib fracture and fall and the essential thrombocytosis which likely has been treated at this point with hydroxyurea. 2 severe dyspnea and shortness of breath: Secondary to pulmonary embolism and drip fracture. 3 right-sided rib fracture most likely from the fall 3 weeks ago continue conservative management Equal Lidoderm or lidocaine along with pain management can be beneficial. 4 dementia: Most likely Alzheimer disease has been on Rivastigmine 9.5 mg patch daily continue medication. 5 hypertension: Has been on metoprolol 25 mg twice a day, hydralazine 25 mg twice a day. 6 chronic arthritis: Was on prednisone apparently according to the had start him on it for medication was available to her in the past medication will be stopped at this point. 7 acute kidney injury: With creatinine was mildly elevated at 1.39 with GFR down to 47 Will hydrate patient repeat BUN/creatinine 24 hours. 8 pancytopenia: With significant leukopenia 2.9 along with mild anemia at 11.2 platelet count still this is most likely the effect of the hydroxyurea which patient has been using for essential thrombocytosis status a case dose of hydroxyurea need to be adjusted to 2000 mg every other day something the patient should address with his technical designer soon. 9 severe GERD and history of GI bleed: Continue patient on pantoprazole. 10 hyperlipidemia: Apparently his of statin because of side effect. 11 history of gout: Patient has been on allopurinol 300 mg daily continue medication. 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 13 chronic neuropathy: Continue patient on gabapentin 300 mg twice a day. 14 GI prophylaxis: Remain on pantoprazole. 15 DVT prophylaxis: Patient is on treatment for PE at this point. CODE STATUS: Full code. Admit patient to inpatient status for more than 2 nights.
[2019-05-30] MEDS: HEPARIN SOD,PORK IN 0.45% NACL 25,000 UNIT in 0.45% NACL 1 250ML.BAG IV SCH (05:22)
[2019-05-30 06:55] LABS: Anisocytosis Moderate; HCT 33.4 % (39.0-53.0); Hypochromasia Slight; MCHC 32.8 g/dL (31.0-37.0); MCV 129.7 fL (80.0-100.0); Macrocytosis Marked; Mean Platelet Volume 8.8; Platelet Count 337 k/uL (150-450); Poikilocytosis Slight; RBC 2.58 m/uL (4.30-5.90); RDW 20.7 % (11.5-15.5)
[2019-05-30 06:56] LABS: Calcium 8.4 mg/dL (8.4-10.2); Potassium 4.3 mmol/L (3.5-5.1); Total Bilirubin 1.4 mg/dL (0.2-1.3); Total Protein 5.2 g/dL (6.3-8.2)
[2019-05-30 07:11] LABS: MCH 42.6 pg (25.0-35.0)
[2019-05-30] MEDS: PANTOPRAZOLE 40 MG TABLET PO SCH (08:03)
[2019-05-30] MEDS: ALLOPURINOL 300 MG TAB PO SCH (08:03)
[2019-05-30] MEDS: GABAPENTIN 300 MG CAP PO SCH ×2 (08:03→21:28)
[2019-05-30] MEDS: hydrALAZINE HCL 25 MG TAB PO SCH ×2 (08:05→21:28)
[2019-05-30] MEDS: RIVASTIGMINE 9.5MG/24HR PATCH TRANSDERM SCH (08:05)
[2019-05-30] MEDS: METOPROLOL TARTRATE 25 MG TAB PO SCH ×2 (08:05→21:28)
[2019-05-30] MEDS: HYDROXYUREA 500 MG CAP PO SCH (08:06)
[2019-05-30 08:12] LABS: Monocytes # (M) 0.13 k/uL (0-1.0); Neutrophils % (M) 60 %; Nucleated Red Blood Cells 5 /100 WBC (0-0); Total Cells Counted 200
[2019-05-30 08:13] LABS: Eosinophils # (M) 0.15 k/uL (0-0.7); Lymphocytes # (M) 0.75 k/uL (1.0-4.8); Polychromasia Present; WBC 2.5 k/uL (3.8-10.6)
[2019-05-30] MEDS ORDERED: HYDROXYUREA 500 MG CAP PO SCH (09:00)
[2019-05-30] MEDS: APIXABAN 5 MG TAB PO SCH ×2 (11:26→21:28)
--- NOTE | 2019-05-30 12:53 | PN ---
PROGRESS NOTE PULMONARY/CRITICAL CARE PROGRESS NOTE: DATE OF SERVICE: 05/30/2019 This is an 83-year-old gentleman we saw yesterday in consultation. He had a high probability V/Q scan. We thought his diagnosis was consistent with pulmonary embolism. In fact, the V/Q scan was positive, both in the right middle lobe and lingula. A highly probable V/Q scan correlates with a pulmonary angiogram 88%-92% of the time. We did not feel like an additional CT angiogram would add very much at this point. The patient fell and injured his right shoulder and right chest area. He does have a vague history of a remote pulmonary embolism. In addition, he has a history of TIA, dementia, hypertension, hyperlipidemia, and GI bleed among other things. Currently, he is doing much better. He is feeling much better. The patient is currently on room air. He is getting 1750 on his incentive spirometer. Current vital signs include a temperature 98.3, heart rate 74, respiratory rate 16, blood pressure 106/59 mean 74, room air saturation 96%. Appears in no acute distress. HEENT: Examination is grossly unremarkable. Mucous membranes are moist. No supplemental oxygen. NECK: Supple. Full range of motion. No adenopathy. Neck veins are flat. CARDIOVASCULAR: Examination reveals regular rhythm and rate. Heart rate 74 beats per minute. S1, S2 normal. There is no murmur. LUNGS: Mostly clear. A few scattered mild rhonchi. They are minimal at best. Breath sounds equal. ABDOMEN: Soft, bowel sounds are heard. EXTREMITIES: Intact. No cyanosis, clubbing, or edema. He does have some tenderness over the right shoulder and right chest area. SKIN: Without rash. NEUROLOGIC: Examination is brief but nonfocal. LABS: Reviewed. White count 2.5, hemoglobin 11, hematocrit 33.4, platelet count is 337,000. His PTT is 84.5. D-dimer 5.37. Sodium 134, potassium 4.3, chloride 106, CO2 is 23, anion gap is 5. BUN and creatinine were 30 and 1.21. Albumin 3. Microbiology is negative. A ventilation-perfusion lung scan was reviewed. Medications are reviewed. ASSESSMENT: 1. Bilateral pulmonary emboli, involving the right middle lobe and lingula. 2. Right-sided chest discomfort, secondary to recent trauma, with right rib fractures and right shoulder injury. 3. Remote, vague history of previous pulmonary embolism, patient is not a particular good historian. 4. Mild acute renal insufficiency/failure. 5. History of transient ischemic attack. 6. Dementia. 7. Hypertension. 8. Hyperlipidemia. 9. History of gastrointestinal bleed. 10.History of diverticular disease. 11.History of donated right kidney. 12.History of gout. 13.Chronic back pain. 14.Carotid stenosis with previous left carotid stent. 15.Lifelong nonsmoker. PLAN: The patient currently is on Eliquis. From our perspective, the patient could be discharged. The patient should be treated for about 3 months. No additional recommendations are made. We do not feel like a CT angiogram would add much at this time. Additional recommendations and suggestions are forthcoming. MMJ CARLOSL / IJN: [id number] / MTDD
--- NOTE | 2019-05-30 13:49 | ECHOF ---
Referral Reason:lvfunction MEASUREMENTS -------- HEIGHT: 180.3 cm WEIGHT: 95.3 kg BP: RVIDd: 2.6 cm (< 3.3) IVSd: 1.0 cm (0.6 - 1.1) LVIDd: 4.4 cm (3.9 - 5.3) LVPWd: 1.2 cm (0.6 - 1.1) IVSs: 1.7 cm LVIDs: 2.7 cm LVPWs: 1.8 cm Ao Diam: 4.1 cm (2.0 - 3.7) AV Cusp: 1.6 cm (1.5 - 2.6) LA Diam: 2.2 cm (2.7 - 3.8) MV EXCURSION: 19.783 mm (> 18.000) MV EF SLOPE: 47 mm/s (70 - 150) EPSS: 0.3 cm MV E Shan: 0.71 m/s MV DecT: 206 ms MV A Shan: 0.71 m/s MV E/A Ratio: 1.00 AV maxP.13 mmHg AV meanP.29 mmHg AR PHT: 661 ms RAP: 5.00 mmHg RVSP: 33.46 mmHg FINDINGS -------- Sinus rhythm. This was a technically adequate study. The left ventricular size is normal. There is mild concentric left ventricular hypertrophy. Overa ll left ventricular systolic function is normal with, an EF between 55 - 60 %. The right ventricle is normal in size. The left atrial size is normal. The right atrial size is normal. Aortic valve is trileaflet and is mildly thickened. There is mild aortic valve sclerosis. There i s mild aortic regurgitation. The mitral valve is normal. The mitral valve leaflets are mildly thickened. There is trace mitral regurgitation. The tricuspid valve appears structurally normal. Trace tricuspid regurgitation present. Right bhupinder tricular systolic pressure is normal at < 35 mmHg. There is no pulmonic regurgitation present. The aortic root is dilated measuring 4.1 cm Normal inferior vena cava with normal inspiratory collapse consistent with estimated right atrial pre ssure of 5 mmHg. There is no pericardial effusion. CONCLUSIONS -------- 1. Sinus rhythm. 2. This was a technically adequate study. 3. The left ventricular size is normal. 4. There is mild concentric left ventricular hypertrophy. 5. Overall left ventricular systolic function is normal with, an EF between 55 - 60 %. 6. The right ventricle is normal in size. 7. The left atrial size is normal. 8. The right atrial size is normal. 9. Aortic valve is trileaflet and is mildly thickened. 10. There is mild aortic valve sclerosis. 11. There is mild aortic regurgitation. 12. The mitral valve is normal. 13. The mitral valve leaflets are mildly thickened. 14. There is trace mitral regurgitation. 15. The tricuspid valve appears structurally normal. 16. Trace tricuspid regurgitation present. 17. Right ventricular systolic pressure is normal at < 35 mmHg. 18. There is no pulmonic regurgitation present. 19. The aortic root is dilated measuring 4.1 cm 20. Normal inferior vena cava with normal inspiratory collapse consistent with estimated right atrial pressure of 5 mmHg. 21. There is no pericardial effusion. TRAUMA DOCTOR: Bethany Pisano RDCS
[2019-05-30] MEDS: HYDROcodone/APAP 5-325MG 1 EACH TAB PO PRN (16:15)
--- NOTE | 2019-05-30 20:53 | P.PN ---
Subjective Progress Note Date: 05/30/19 Principal diagnosis: Acute pulmonary embolism, severe dyspnea and shortness of breath, right-sided rib fracture, acute kidney injury, pancytopenia, treatment for essential thrombocytosis. 83-year-old male one of our office patient with past medical history of hypertension, CVA, GERD, hyperlipidemia, previous history of gastrointestinal bleed, history of dramatic fever as a child and carotid stenosis with left carotid stent placement in the past. Patient developed to have increased and worsening shortness of breath for the last 3 weeks following a fall landed mostly on the right rib area with no loss of consciousness no other injury or trauma he was not any blood thinner medication at the time he presented to [facility] today with worsening symptoms chest x-ray revealed possible anterior rib fracture. D-dimer was mildly elevated with moderately elevated creatinine patient ended up going for VQ scan him back with high probability for pulmonary embolism with decrease perfusion and uptake of the right lower lobe and right middle lobe to suggestive of pulmonary embolism. Patient was started on heparin drip will be admitted to the hospital to be able to convert him into oral anticoagulation in the next 48 hours and consult pulmonary. With his creatinine been mildly elevated patient will be hydrated and if possible to repeat CTA for better confirmation of his PE. 05/29: Patient was seen pulmonary and decided with the VQ scan is satisfactory at this point to make the decision of PE no need for any CTA at this point. Patient will be converted to oral anticoagulation and if his stable in the next 24 hours can be discharged home. Objective - Vital Signs Vital signs: Vital Signs Temp 97.4 F L 05/30/19 12:33 Pulse 64 05/30/19 15:12 Resp 17 05/30/19 15:12 BP 152/68 05/30/19 12:33 Pulse Ox 95 05/30/19 12:33 Intake & Output 05/30/19 05/30/19 05/31/19 06:59 18:59 06:59 Intake Total 740.209 2422.433 Balance 352.240 8565.433 Intake: IV 80 240 ns@20 80 240 Intake, IV Titration 245.423 26.433 Amount Heparin Sod,Pork in 0.45% 245.423 26.433 NaCl 25,000 unit In 0.45 % NaCl 1 250ml.bag @ 18 UNITS/KG/HR 17.146 mls/hr IV .[id number] JS Rx#: [id number] Oral 1180 Other: Voiding Method Toilet Toilet Urinal # Voids 1 4 # Bowel Movements 1 1 - Exam Review of Systems CONSTITUTIONAL: Well-developed no acute respiratory distress. EYES: No icterus sclerae, no conjunctivitis. EARS, NOSE, MOUTH, THROAT, and FACE: No sore throat, lymphadenopathy, carotid bruits or deformity. RESPIRATORY: Severe dyspnea and shortness of breath with drip fracture and pulmonary embolism. CARDIOVASCULAR: No CP, Palpitation, PND, Orthopnea, or angina. GASTROINTESTINAL: No Abd pain, Nausea or vomiting, no Diarrhea or constipation, No GI Bleed, no distention or masses. GENITOURINARY: Negative for Hematuria or UTI, no kidney stones. INTEGUMENT/BREAST: Negative for any muscular injury with mild osteoarthritis.. HEMATOLOGIC/LYMPHATIC: Negative for bleed or purpura. MUSCULOSKELTAL: Negative for Myalgia or arthralgia. NEURLOGICAL: No LOC, Sz or syncope, blurred vision dizziness or abnormality.. BEHAVIORAL/PSYCH: Negative. ENDOCRINE: Negative. Physical Exam Vitals: Vital Signs General Appearance: Alert, cooperative, no distress, appears stated age. Neck HEENT: Supple, no lymphadenopathy, no thyroid enlargement, no carotid brui ts. Lungs: Decreased breath some bilaterally with fine rhonchi no crackles or wheezes. Chest Wall: Decrease expansion with deep inspiration no tenderness and no deformity was found on exam, no costochondral pain or discomfort. Heart: Regular rate and rhythm, S1, S2 normal, no murmur, rub or gallop. Back: Symmetric, no curvature, ROM normal, no CVA tenderness. Abdomen: Soft, non-tender, bowel sounds active all four quadrants, no masses, no organomegaly. Extremities: Extremities normal, atraumatic, no cyanosis or edema. Pulses: 2+ and symmetric. Skin: Skin color, texture, tugor normal, no rashes or lesions. Neurologic: Alert oriented x3 cranial nerves II through XII intact, no motor deficit, no abnormal balance or gait. - Labs CBC & Chem 7: 05/30/19 05:24 05/30/19 05:24 Labs: Abnormal Lab Results - Last 24 Hours (Table) 05/30/19 05/30/19 05/30/19 Range/Units 01:42 05:24 05:24 WBC 2.5 L (3.8-10.6) k/uL RBC 2.58 L (4.30-5.90) m/uL Hgb 11.0 L (13.0-17.5) gm/dL Hct 33.4 L (39.0-53.0) % MCV 129.7 H (80.0-100.0) fL MCH 42.6 H (25.0-35.0) pg RDW 20.7 H (11.5-15.5) % Lymphocytes # (Manual) 0.75 L (1.0-4.8) k/uL Nucleated RBCs 5 H (0-0) /100 WBC Macrocytosis Marked A APTT 76.1 H (22.0-30.0) sec Sodium 134 L (137-145) mmol/L BUN 30 H (9-20) mg/dL Total Bilirubin 1.4 H (0.2-1.3) mg/dL Total Protein 5.2 L (6.3-8.2) g/dL Albumin 3.0 L (3.5-5.0) g/dL 05/30/19 Range/Units 05:24 WBC (3.8-10.6) k/uL RBC (4.30-5.90) m/uL Hgb (13.0-17.5) gm/dL Hct (39.0-53.0) % MCV (80.0-100.0) fL MCH (25.0-35.0) pg RDW (11.5-15.5) % Lymphocytes # (Manual) (1.0-4.8) k/uL Nucleated RBCs (0-0) /100 WBC Macrocytosis APTT 84.5 H (22.0-30.0) sec Sodium (137-145) mmol/L BUN (9-20) mg/dL Total Bilirubin (0.2-1.3) mg/dL Total Protein (6.3-8.2) g/dL Albumin (3.5-5.0) g/dL Assessment and Plan Assessment: 1 Acute pulmonary embolism: Patient will be on heparin drip per protocol if possible to confirm the PE by running CTA of the chest also echocardiogram will be order to see what's the right side pressure. Meanwhile continue heparin drip and try to convert patient in 2 Xarelto or Eliquis over the next 2 days. Patient will be seen by pulmonary. Problem might cause the acute pulmonary embolism is the trauma to the chest wall from rib fracture and fall and the essential thrombocytosis which likely has been treated at this point with hydroxyurea. 2 severe dyspnea and shortness of breath: Secondary to pulmonary embolism and drip fracture. 3 right-sided rib fracture most likely from the fall 3 weeks ago continue conservative management Equal Lidoderm or lidocaine along with pain management can be beneficial. 4 dementia: Most likely Alzheimer disease has been on Rivastigmine 9.5 mg patch daily continue medication. 5 hypertension: Has been on metoprolol 25 mg twice a day, hydralazine 25 mg twice a day. 6 chronic arthritis: Was on prednisone apparently according to the had start him on it for medication was available to her in the past medication will be stopped at this point. 7 acute kidney injury: With creatinine was mildly elevated at 1.39 with GFR down to 47 Will hydrate patient repeat BUN/creatinine 24 hours. 8 pancytopenia: With significant leukopenia 2.9 along with mild anemia at 11.2 platelet count still this is most likely the effect of the hydroxyurea which patient has been using for essential thrombocytosis status a case dose of hyd roxyurea need to be adjusted to 2000 mg every other day something the patient should address with his sap functional analyst soon. 9 severe GERD and history of GI bleed: Continue patient on pantoprazole. 10 hyperlipidemia: Apparently his of statin because of side effect. 11 history of gout: Patient has been on allopurinol 300 mg daily continue medication. 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 13 chronic neuropathy: Continue patient on gabapentin 300 mg twice a day. 14 GI prophylaxis: Remain on pantoprazole. 15 DVT prophylaxis: Patient is on treatment for PE at this point. With switch patient to oral anticoagulation and if his stable by tomorrow can be discharged home.
[2019-05-31 06:51] LABS: Albumin 3.2 g/dL (3.5-5.0); Calcium 8.8 mg/dL (8.4-10.2); Potassium 5.5 mmol/L (3.5-5.1); Total Bilirubin 1.4 mg/dL (0.2-1.3); Total Protein 5.6 g/dL (6.3-8.2)
[2019-05-31 07:01] LABS: Anisocytosis Moderate; HCT 33.4 % (39.0-53.0); HGB 10.8 gm/dL (13.0-17.5); Hypochromasia Slight; MCHC 32.4 g/dL (31.0-37.0); MCV 131.8 fL (80.0-100.0); Macrocytosis Marked; Mean Platelet Volume 8.6; Platelet Count 350 k/uL (150-450); Poikilocytosis Slight; RBC 2.54 m/uL (4.30-5.90); RDW 20.5 % (11.5-15.5)
[2019-05-31 07:07] LABS: MCH 42.7 pg (25.0-35.0)
[2019-05-31] MEDS: hydrALAZINE HCL 25 MG TAB PO SCH (07:27)
[2019-05-31] MEDS: APIXABAN 5 MG TAB PO SCH ×2 (07:28→13:47)
[2019-05-31] MEDS: GABAPENTIN 300 MG CAP PO SCH (07:28)
[2019-05-31] MEDS: HYDROXYUREA 500 MG CAP PO SCH (07:29)
[2019-05-31] MEDS: METOPROLOL TARTRATE 25 MG TAB PO SCH (07:29)
[2019-05-31] MEDS: PANTOPRAZOLE 40 MG TABLET PO SCH (07:29)
[2019-05-31] MEDS: ALLOPURINOL 300 MG TAB PO SCH (07:29)
[2019-05-31] MEDS: RIVASTIGMINE 9.5MG/24HR PATCH TRANSDERM SCH (07:30)
[2019-05-31 07:45] LABS: Band Neutrophils % 1 %; Eosinophils # (M) 0.06 k/uL (0-0.7); Lymphocytes # (M) 0.64 k/uL (1.0-4.8); Metamyelocytes # (M) 0.02 k/uL (0); Metamyelocytes % 1 %; Monocytes # (M) 0.12 k/uL (0-1.0); Neutrophils % (M) 58 %; Nucleated Red Blood Cells 3 /100 WBC (0-0); Total Cells Counted 200
[2019-05-31] MEDS: HYDROcodone/APAP 5-325MG 1 EACH TAB PO PRN (08:58)
[2019-05-31] MEDS ORDERED: SODIUM POLYSTYRENE SULFONATE 15 GM/60 ML BOTTLE PO ONE (10:11)
--- NOTE | 2019-05-31 12:15 | PN ---
PROGRESS NOTE PULMONARY/CRITICAL CARE PROGRESS NOTE DATE OF SERVICE: 05/31/2019 This is an 83-year-old gentleman who we saw in consultation a couple days ago. He had a high probability V/Q scan. There were perfusion abnormalities noted in both the right middle lobe and lingula. The patient is doing much better today. He is on room air. He was initially started on IV heparin and then switched to a factor X inhibitor. The patient apparently has a vague history of a remote pulmonary embolism. He does have history of TIA, dementia, benign essential hypertension, hyperlipidemia, and GI bleed. The patient is resting comfortably, lying flat in bed. PHYSICAL EXAMINATION: VITAL SIGNS: Current vital signs are reviewed. Temperature is 97.9, heart rate 71, and respiratory rate 16, blood pressure 174/78, mean 110, room air saturation 94%. GENERAL: Appears in no acute distress. HEENT: Grossly unremarkable. Mucous membranes are moist. No oral lesions. NECK: Supple. No adenopathy or thyromegaly. Neck veins are flat. CARDIOVASCULAR: Regular rhythm and rate. Heart rate 71 beats per minute. S1, S2 normal. No murmur. LUNGS: Reveal mostly clear breath sounds. A few scattered mild rhonchi. No wheezes or crackles. ABDOMEN: Soft. Bowel sounds are heard. EXTREMITIES: Intact. There is no cyanosis, clubbing, or edema. SKIN: Without rash. NEUROLOGIC: Brief but nonfocal. LABS: Reviewed. White count 2, hemoglobin 10.8, hematocrit 33.4, platelet count 350,000. PTT was 84.5. Sodium 136, potassium 5.5, chloride 105, CO2 27, BUN and creatinine were 27 and 1.29, albumin 3.2. Microbiology is negative. No additional x-rays to review. MEDICATIONS: Reviewed. ASSESSMENT: 1. Bilateral pulmonary emboli, involving the right middle lobe and lingula. 2. Right-sided chest discomfort, secondary to recent trauma with right fractures and right shoulder soft tissue injury. 3. Remote/vague history of previous pulmonary embolism, patient not a particularly good historian. 4. Mild acute renal insufficiency/failure. 5. History of transient ischemic attack. 6. History of dementia. 7. Benign essential hypertension. 8. Hyperlipidemia. 9. History of gastrointestinal bleed. 10.History of diverticular disease. 11.History of donated right kidney. 12.History of gout. 13.Chronic back pain. 14.Carotid stenosis, with previous left carotid stent. 15.Lifelong nonsmoker. PLAN: The patient was transitioned to Eliquis. He should be treated for at least three months. I suspect his risk factor was a sedentary lifestyle following his fall and shoulder and rib injuries. The patient will followup with his primary care provider. No additional recommendations are made. We will continue to follow. The patient seems to be improving and doing much better today compared to yesterday. We do encourage deep breathing, coughing, clearing of secretions and continued hourly use of the incentive spirometer. MMODL / IJN: [id number] /
[2019-05-31 13:14] LABS: Calcium 8.7 mg/dL (8.4-10.2); Potassium 4.7 mmol/L (3.5-5.1)
[2019-05-31 13:39] VITALS: BP 118/57; PULSE 66; RESP 17; TEMP 97.4
--- NOTE | 2019-05-31 21:41 | P.DS ---
Providers Date of admission: 05/29/19 12:05 Attending physician: Ehsan Mendoza Consults: 05/29/19 12:25 Consult Physician Stat Consulting Provider: Stevie Washburn Reason/Comments: Acute PE, dysnpea Do you want consulting provider notified?: Yes Primary care physician: Laurita Sandra Hospital Course: Principal diagnosis: Acute pulmonary embolism, severe dyspnea and shortness of breath, right-sided rib fracture, acute kidney injury, pancytopenia, treatment for essential thrombocytosis. 83-year-old male one of our office patient with past medical history of hypertension, CVA, GERD, hyperlipidemia, previous history of gastrointestinal bleed, history of dramatic fever as a child and carotid stenosis with left carotid stent placement in the past. Patient developed to have increased and worsening shortness of breath for the last 3 weeks following a fall landed mostly on the right rib area with no loss of consciousness no other injury or trauma he was not any blood thinner medication at the time he presented to [facility] today with worsening symptoms chest x-ray revealed possible anterior rib fracture. D-dimer was mildly elevated with moderately elevated creatinine patient ended up going for VQ scan him back with high probability for pulmonary embolism with decrease perfusion and uptake of the right lower lobe and right middle lobe to suggestive of pulmonary embolism. Patient was started on heparin drip will be admitted to the hospital to be able to convert him into oral anticoagulation in the next 48 hours and consult pulmonary. With his creatinine been mildly elevated patient will be hydrated and if possible to repeat CTA for better confirmation of his PE. 05/29: Patient was seen pulmonary and decided with the VQ scan is satisfactory at this point to make the decision of PE no need for any CTA at this point. Patient will be converted to oral anticoagulation and if his stable in the next 24 hours can be discharged home. 05/30: Patient is doing very well tolerating his medication was switched to oral anticoagulation will be going home on Eliquis 10 mg twice a day for total of 1 week 10 5 mg twice a day thereafter for the next 6 month period Objective - Vital Signs Vital signs: Vital Signs Temp 97.4 F L 05/30/19 12:33 Pulse 64 05/30/19 15:12 Resp 17 05/30/19 15:12 BP 152/68 05/30/19 12:33 Pulse Ox 95 05/30/19 12:33 Intake & Output 05/30/19 05/30/19 05/31/19 06:59 18:59 06:59 Intake Total 327.229 3566.433 Balance 804.792 9921.433 Intake: IV 80 240 ns@20 80 240 Intake, IV Titration 245.423 26.433 Amount Heparin Sod,Pork in 0.45% 245.423 26.433 NaCl 25,000 unit In 0.45 % NaCl 1 250ml.bag @ 18 UNITS/KG/HR 17.146 mls/hr IV .[id number] JS Rx#: [id number] Oral 1180 Other: Voiding Method Toilet Toilet Urinal # Voids 1 4 # Bowel Movements 1 1 - Exam Review of Systems CONSTITUTIONAL: Well-developed no acute respiratory distress. EYES: No icterus sclerae, no conjunctivitis. EARS, NOSE, MOUTH, THROAT, and FACE: No sore throat, lymphadenopathy, carotid bruits or deformity. RESPIRATORY: Severe dyspnea and shortness of breath with drip fracture and pulmonary embolism. CARDIOVASCULAR: No CP, Palpitation, PND, Orthopnea, or angina. GASTROINTESTINAL: No Abd pain, Nausea or vomiting, no Diarrhea or constipation, No GI Bleed, no distention or masses. GENITOURINARY: Negative for Hematuria or UTI, no kidney stones. INTEGUMENT/BREAST: Negative for any muscular injury with mild osteoarthritis.. HEMATOLOGIC/LYMPHATIC: Negative for bleed or purpura. MUSCULOSKELTAL: Negative for Myalgia or arthralgia. NEURLOGICAL: No LOC, Sz or syncope, blurred vision dizziness or abnormality.. BEHAVIORAL/PSYCH: Negative. ENDOCRINE: Negative. Physical Exam Vitals: Vital Signs General Appearance: Alert, cooperative, no distress, appears stated age. Neck HEENT: Supple, no lymphadenopathy, no thyroid enlargement, no carotid bruits. Lungs: Decreased breath some bilaterally with fine rhonchi no crackles or wheezes. Chest Wall: Decrease expansion with deep inspiration no tenderness and no deformity was found on exam, no costochondral pain or discomfort. Heart: Regular rate and rhythm, S1, S2 normal, no murmur, rub or gallop. Back: Symmetric, no curvature, ROM normal, no CVA tenderness. Abdomen: Soft, non-tender, bowel sounds active all four quadrants, no masses, no organomegaly. Extremities: Extremities normal, atraumatic, no cyanosis or edema. Pulses: 2+ and symmetric. Skin: Skin color, texture, tugor normal, no rashes or lesions. Neurologic: Alert oriented x3 cranial nerves II through XII intact, no motor deficit, no abnormal balance or gait. - Labs CBC & Chem 7: 05/30/19 05:24 05/30/19 05:24 Labs: Abnormal Lab Results - Last 24 Hours (Table) 05/30/19 05/30/19 05/30/19 Range/Units 01:42 05:24 05:24 WBC 2.5 L (3.8-10.6) k/uL RBC 2.58 L (4.30-5.90) m/uL Hgb 11.0 L (13.0-17.5) gm/dL Hct 33.4 L (39.0-53.0) % MCV 129.7 H (80.0-100.0) fL MCH 42.6 H (25.0-35.0) pg RDW 20.7 H (11.5-15.5) % Lymphocytes # (Manual) 0.75 L (1.0-4.8) k/uL Nucleated RBCs 5 H (0-0) /100 WBC Macrocytosis Marked A APTT 76.1 H (22.0-30.0) sec Sodium 134 L (137-145) mmol/L BUN 30 H (9-20) mg/dL Total Bilirubin 1.4 H (0.2-1.3) mg/dL Total Protein 5.2 L (6.3-8.2) g/dL Albumin 3.0 L (3.5-5.0) g/dL 05/30/19 Range/Units 05:24 WBC (3.8-10.6) k/uL RBC (4.30-5.90) m/uL Hgb (13.0-17.5) gm/dL Hct (39.0-53.0) % MCV (80.0-100.0) fL MCH (25.0-35.0) pg RDW (11.5-15.5) % Lymphocytes # (Manual) (1.0-4.8) k/uL Nucleated RBCs (0-0) /100 WBC Macrocytosis APTT 84.5 H (22.0-30.0) sec Sodium (137-145) mmol/L BUN (9-20) mg/dL Total Bilirubin (0.2-1.3) mg/dL Total Protein (6.3-8.2) g/dL Albumin (3.5-5.0) g/dL Assessment and Plan Assessment: 1 Acute pulmonary embolism: Patient will be on heparin drip per protocol if possible to confirm the PE by running CTA of the chest also echocardiogram will be order to see what's the right side pressure. Meanwhile continue heparin drip and try to convert patient in 2 Xarelto or Eliquis over the next 2 days. Patient will be seen by pulmonary. Problem might cause the acute pulmonary embolism is the trauma to the chest wall from rib fracture and fall and the essential thrombocytosis which likely has been treated at this point with hydroxyurea. 2 severe dyspnea and shortness of breath: Secondary to pulmonary embolism and drip fracture. 3 right-sided rib fracture most likely from the fall 3 weeks ago continue conservative management Equal Lidoderm or lidocaine along with pain management can be beneficial. 4 dementia: Most likely Alzheimer disease has been on Rivastigmine 9.5 mg patch daily continue medication. 5 hypertension: Has been on metoprolol 25 mg twice a day, hydralazine 25 mg twice a day. 6 chronic arthritis: Was on prednisone apparently according to the had start him on it for medication was available to her in the past medication will be stopped at this point. 7 acute kidney injury: With creatinine was mildly elevated at 1.39 with GFR down to 47 Will hydrate patient repeat BUN/creatinine 24 hours. 8 pancytopenia: With significant leukopenia 2.9 along with mild anemia at 11.2 platelet count still this is most likely the effect of the hydroxyurea which patient has been using for essential thrombocytosis status a case dose of hydroxyurea need to be adjusted to 2000 mg every other day something the patient should address with his sewing demonstrator soon. 9 severe GERD and history of GI bleed: Continue patient on pantoprazole. 10 hyperlipidemia: Apparently his of statin because of side effect. 11 history of gout: Patient has been on allopurinol 300 mg daily continue medication. 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 13 chronic neuropathy: Continue patient on gabapentin 300 mg twice a day. 14 GI prophylaxis: Remain on pantoprazole. Hospital course: Patient has done very well was started on IV heparin drip for the next 36 hours and switch to oral anticoagulation medication was approved by his insurance unaffordable patient will be discharged home today on Eliquis 10 mg twice a day for one week then 5 mg twice a day thereafter for total of 6 month and to follow with his primary care and pulmonary in the next week. Patient Condition at Discharge: Good Plan - Discharge Summary Discharge Rx Participant: No New Discharge Prescriptions: New Apixaban [Eliquis] 10 mg PO BID tab Acetaminophen Tab [Tylenol] 650 mg PO Q6HR PRN tab PRN Reason: Fever And/ Or Pain Continue hydrALAZINE HCL [Apresoline] 25 mg PO BID Allopurinol [Zyloprim] 300 mg PO DAILY Aspirin 325 mg PO DAILY EPINEPHrine (Auto Inject) [Epipen] 0.3 mg IM ONCE PRN PRN Reason: Anaphylaxis Gabapentin [Neurontin] 300 mg PO BID Pantoprazole Sodium [Protonix] 40 mg PO AC-BRKFST Metoprolol Tartrate 25 mg PO BID #60 tab Cholecalciferol (Vitamin D3) [Vitamin D3] 2,000 unit PO DAILY predniSONE See Taper PO DIRECTED Rivastigmine 9.5MG/24Hr Patch [Exelon 9.5MG/24Hr Patch] 1 patch TRANSDERM Q24HR Changed Hydroxyurea [Hydrea] 1,000 mg PO DAILY #0 Discharge Medication List Allopurinol [Zyloprim] 300 mg PO DAILY 09/01/13 [History] hydrALAZINE HCL [Apresoline] 25 mg PO BID 09/01/13 [History] Aspirin 325 mg PO DAILY 08/02/16 [History] EPINEPHrine (Auto Inject) [Epipen] 0.3 mg IM ONCE PRN 01/06/17 [History] Gabapentin [Neurontin] 300 mg PO BID 06/13/17 [History] Pantoprazole Sodium [Protonix] 40 mg PO AC-BRKFST 08/04/17 [History] Metoprolol Tartrate 25 mg PO BID #60 tab 08/06/17 [Rx] Cholecalciferol (Vitamin D3) [Vitamin D3] 2,000 unit PO DAILY 11/13/17 [History] Rivastigmine 9.5MG/24Hr Patch [Exelon 9.5MG/24Hr Patch] 1 patch TRANSDERM Q24HR 05/29/19 [History] predniSONE See Taper PO DIRECTED 05/29/19 [History] Acetaminophen Tab [Tylenol] 650 mg PO Q6HR PRN tab 05/31/19 [Rx] Apixaban [Eliquis] 10 mg PO BID tab 05/31/19 [Rx] Hydroxyurea [Hydrea] 1,000 mg PO DAILY #0 05/31/19 [Rx] Follow up Appointment(s)/Referral(s): Laurita Sandra MD [Primary Care Provider] - 1-2 days (call office on Saturday for hospital follow-up appt. Office is currently closed) Stevie Washburn DO [Doctor of Osteopathic Medicine] - 1 Week (call office on Saturday to schedule follow up appointment, currently office is closed) Rene Massey MD [STAFF PHYSICIAN] - 1 Week (call for appointment, office is currently closed) Patient Instructions/Handouts: Apixaban (By mouth), Pulmonary Embolism (DC), Alcohol Intoxication (DC), Dyspnea (DC) Activity/Diet/Wound Care/Special Instructions: follow precautions for Eliquis. Shave with electric razor only. Report any bleeding problems to MD Discharge Disposition: HOME SELF-CARE
== END 2019-05-31 14:34 | disposition home or self-care (01) | DRG 176 ==
LOC: EC 08:51 → 5NMEDONC 12:05
PROVIDERS: ADMIT Internal Medicine Geriatric Medicine; ATTEND Internal Medicine Geriatric Medicine
DX: I26.99 Other pulmonary embolism without acute cor pulmonale (principal); S22.41XA Multiple fractures of ribs, right side, initial encounter for closed fracture; D61.818 Other pancytopenia; N17.9 Acute kidney failure, unspecified; F02.80 Dementia in other diseases classified elsewhere, unspecified severity, without behavioral disturbance, psychotic disturbance, mood disturbance, and anxiety; G30.9 Alzheimer's disease, unspecified; D47.3 Essential (hemorrhagic) thrombocythemia; E78.5 Hyperlipidemia, unspecified; G62.9 Polyneuropathy, unspecified; G89.29 Other chronic pain; I10 Essential (primary) hypertension; I65.22 Occlusion and stenosis of left carotid artery; K21.9 Gastro-esophageal reflux disease without esophagitis; M19.011 Primary osteoarthritis, right shoulder; M10.9 Gout, unspecified; M54.9 Dorsalgia, unspecified; K57.90 Diverticulosis of intestine, part unspecified, without perforation or abscess without bleeding; Z79.82 Long term (current) use of aspirin; Z79.899 Other long term (current) drug therapy; Z91.030 Bee allergy status; Z86.73 Personal history of transient ischemic attack (TIA), and cerebral infarction without residual deficits; Z86.711 Personal history of pulmonary embolism; Z85.828 Personal history of other malignant neoplasm of skin; Z90.5 Acquired absence of kidney; Z96.643 Presence of artificial hip joint, bilateral; Z98.41 Cataract extraction status, right eye; Z96.1 Presence of intraocular lens; Z82.3 Family history of stroke; Z82.71 Family history of polycystic kidney; Z83.3 Family history of diabetes mellitus; Z82.49 Family history of ischemic heart disease and other diseases of the circulatory system; W19.XXXA Unspecified fall, initial encounter
CPT/HCPCS: 36415; 71046; 78582; 80048; 80053; 83735; 83880; 84484; 85025; 85379; 85610; 85730; 93005; 93306; 96365; 96376; 99285

== ENCOUNTER 2019-08-13 22:06 | Observation (INO) | payer MEDICARE ==
[2019-08-13 22:56] LABS: Albumin 3.3 g/dL (3.5-5.0); Calcium 8.7 mg/dL (8.4-10.2); Potassium 4.9 mmol/L (3.5-5.1); Total Bilirubin 0.8 mg/dL (0.2-1.3); Total Protein 5.5 g/dL (6.3-8.2)
[2019-08-13 23:09] LABS: Anisocytosis Slight; HCT 28.3 % (39.0-53.0); HGB 9.4 gm/dL (13.0-17.5); Hypochromasia Slight; MCHC 33.3 g/dL (31.0-37.0); MCV 137.5 fL (80.0-100.0); Macrocytosis Marked; Platelet Count 523 k/uL (150-450); Poikilocytosis Slight; RBC 2.06 m/uL (4.30-5.90); RDW 18.5 % (11.5-15.5)
[2019-08-13 23:13] LABS: INR 1.1 (<1.2); Partial Thromboplastin Time 20.5 sec (22.0-30.0); Prothrombin Time 11.1 sec (9.0-12.0)
[2019-08-13 23:14] LABS: MCH 45.8 pg (25.0-35.0)
--- NOTE | 2019-08-13 23:23 | XR ---
EXAMINATION TYPE: XR chest 2V DATE OF EXAM: 08/13/2019 COMPARISON: 05/29/2019 HISTORY: Fall. Pain. TECHNIQUE: FINDINGS: Heart and mediastinum are normal. Lungs are clear of infiltrate. There is no pleural effusi on. There are chest leads. Bony thorax appears intact. IMPRESSION: No active cardiopulmonary disease. No change.
[2019-08-13 23:24] LABS: D-Dimer 0.63 mg/L FEU (<0.60)
--- NOTE | 2019-08-13 23:25 | ED ---
Chest Pain HPI - General Chief Complaint: Chest Pain Stated Complaint: chest pain Time Seen by Provider: 08/13/19 23:01 Source: patient, family, EMS Mode of arrival: EMS Limitations: physical limitation - History of Present Illness Initial Comments: This patient is an 83-year-old man who presents to be evaluated for chest pain that had started last night. He indicates the left chest and substernal area. He is not able to characterize the pain well. He does note that it is intermittent and can last anywhere from a minute to a few hours. He denies any accompanying symptoms. He has not had dyspnea, palpitations, lightheadedness, nausea or vomiting. The patient did have a fall prior to onset but does not believe the pain is related to that it does not change with palpation of the chest wall. MD Complaint: chest pain -: days(s) Onset: during rest Pain Location: substernal, left chest Pain Radiation: none Severity: moderate Quality: other (Unable to characterize) Consistency: intermittent, now resolved Improves With: nothing Worsens With: nothing Treatments Prior to Arrival: none - Related Data Home Medications Medication Instructions Recorded Confirmed Allopurinol [Zyloprim] 300 mg PO DAILY 09/01/13 08/14/19 hydrALAZINE HCL [Apresoline] 25 mg PO TID 09/01/13 08/14/19 EPINEPHrine (Auto Inject) [Epipen] 0.3 mg IM ONCE PRN 01/06/17 08/14/19 Gabapentin [Neurontin] 300 mg PO BID 06/13/17 08/14/19 Pantoprazole Sodium [Protonix] 40 mg PO AC-BRKFST 08/04/17 08/14/19 Rivastigmine 9.5MG/24Hr Patch 1 patch TRANSDERM Q24HR 05/29/19 08/14/19 [Exelon 9.5MG/24Hr Patch] Apixaban [Eliquis] 5 mg PO DAILY 08/14/19 08/14/19 Aspirin EC [Ecotrin Low Dose] 81 mg PO DAILY 08/14/19 08/14/19 Atorvastatin Calcium [Lipitor] 20 mg PO DAILY 08/14/19 08/14/19 Econazole 1% Cream [Spectazole] 1 applic TOPICAL BID PRN 08/14/19 08/14/19 Hydroxyurea 2,000 mg PO DAILY 08/14/19 08/14/19 Previous Rx's Medication Instructions Recorded Metoprolol Tartrate 25 mg PO BID #60 tab 08/06/17 Acetaminophen Tab [Tylenol] 650 mg PO Q6HR PRN tab 05/31/19 Allergies Allergy/AdvReac Type Severity Reaction Status Date / Time venom-honey bee Allergy Anaphylaxis Verified 08/14/19 07:37 [bee venom (honey bee)] Review of Systems ROS Statement: Those systems with pertinent positive or pertinent negative responses have been documented in the HPI. ROS Other: All systems not noted in ROS Statement are negative. Constitutional: Denies: fever, chills Respiratory: Denies: cough, dyspnea Cardiovascular: Reports: as per HPI, chest pain. Denies: palpitations, orthopnea, edema, syncope Gastrointestinal: Denies: abdominal pain, nausea, vomiting Genitourinary: Denies: dysuria, hematuria Musculoskeletal: Denies: back pain Skin: Denies: rash Neurological: Denies: headache, weakness, numbness EKG Findings - EKG Results: EKG: interpreted by [facility], normal axis, normal QRS EKG shows: atrial fibrillation - Blocks, E[place], Hypertrophy, ST Abn: Repolarization changes or abnormalities: Q-T interval prolongation Past Medical History Past Medical History: Cancer, CVA/TIA, Dementia, Eye Disorder, GERD/Reflux, Hyperlipidemia, Hypertension, Osteoarthritis (OA), Renal Disease Additional Past Medical History / Comment(s): Hx. 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 Syncope. History of Any Multi-Drug Resistant Organisms: None Reported Past Surgical History: Adenoidectomy, Hernia Repair, Joint Replacement, Orthopedic Surgery, Tonsillectomy Additional Past Surgical History / Comment(s): R kidney donor, kiesha hip replacem ent, L hand trigger finger,uvuloplasty, left carotid stent, bilateral inguinal hernia repair, deviated septum repair, colonoscopy, R cataract removal with lens; Pain procedures. Past Anesthesia/Blood Transfusion Reactions: No Reported Reaction Past Psychological History: No Psychological Hx Reported Smoking Status: Never smoker Past Alcohol Use History: None Reported Past Drug Use History: None Reported - Past Family History Father Family Medical History: CVA/TIA Additional Family Medical History / Comment(s): Father at 80 from stroke Mother Family Medical History: No Reported History Additional Family Medical History / Comment(s): Mother at age 55 from polycystic kidney disease. Brother(s) Additional Family Medical History / Comment(s): Patient has 1 brother with multiple medical problems including diabetes. Sister(s) Family Medical History: Renal Disease Additional Family Medical History / Comment(s): Patient has one sister that at age 60 from kidney failure due to polycystic kidney disease. Daughter(s) Family Medical History: No Reported History Additional Family Medical History / Comment(s): Patient has one daughter with no major medical problems. Son(s) Additional Family Medical History / Comment(s): Patient has 5 sons. 2 at premature . One while skiing from a myocardial infarction at age 32. One son is alive with no major medical problems. General Exam Limitations: physical limitation General appearance: alert, in no apparent distress Head exam: Present: atraumatic, normocephalic Eye exam: Present: normal appearance. Absent: scleral icterus, conjunctival injection ENT exam: Present: normal oropharynx Neck exam: Present: normal inspection, full ROM Respiratory exam: Present: normal lung sounds bilaterally. Absent: respiratory distress, wheezes, rales, rhonchi, stridor, chest wall tenderness Cardiovascular Exam: Present: regular rate, normal rhythm, normal heart sounds. Absent: systolic murmur, diastolic murmur, rubs, gallop GI/Abdominal exam: Present: soft. Absent: distended, tenderness, guarding, rebound, rigid, mass Extremities exam: Present: normal inspection, normal capillary refill. Absent: pedal edema, calf tenderness Back exam: Present: normal inspection. Absent: CVA tenderness (R), CVA tenderness (L) Neurological exam: Present: alert, CN II-XII intact. Absent: motor sensory deficit Skin exam: Present: warm, dry, intact, normal color. Absent: rash Course Vital Signs 08/13/19 08/14/19 22:29 01:26 Temperature 97.9 F 97.3 F L Pulse Rate 107 H 98 Respiratory 20 16 Rate Blood Pressure 111/66 115/66 O2 Sat by Pulse 94 L 94 L Oximetry Disposition Clinical Impression: Chest pain Disposition: ADMITTED IP TO THIS HOSP Condition: Fair
[2019-08-13 23:34] LABS: Band Neutrophils % 2 %; Basophils # (M) 0.08 k/uL (0-0.2); Eosinophils # (M) 0.04 k/uL (0-0.7); Hypersegmented Neutrophils Present; Large Platelets Present; Lymphocytes # (M) 1.01 k/uL (1.0-4.8); Monocytes # (M) 0.47 k/uL (0-1.0); Myelocytes # (M) 0.04 k/uL (0); Myelocytes % 1 %; Neutrophils % (M) 58 %; Nucleated Red Blood Cells 4 /100 WBC (0-0); Polychromasia Present; Total Cells Counted 200; WBC 3.9 k/uL (3.8-10.6)
[2019-08-14] MEDS ORDERED: NITROGLYCERIN SL TABS 0.4 MG TAB SUBLINGUAL PRN (01:03)
[2019-08-14] MEDS ORDERED: ACETAMINOPHEN TAB 325 MG TAB PO PRN (01:05)
[2019-08-14] MEDS: PANTOPRAZOLE 40 MG TABLET PO SCH (06:25)
[2019-08-14] MEDS ORDERED: APIXABAN 5 MG TAB PO SCH (09:00)
[2019-08-14] MEDS ORDERED: METOPROLOL TARTRATE 25 MG TAB PO SCH (09:00)
[2019-08-14] MEDS: hydrALAZINE HCL 25 MG TAB PO SCH ×2 (10:20→20:43)
[2019-08-14] MEDS: CHOLECALCIFEROL 1,000 UNIT TAB PO SCH (10:20)
[2019-08-14] MEDS: allopurinoL 300 MG TAB PO SCH (10:20)
[2019-08-14] MEDS: GABAPENTIN 300 MG CAP PO SCH ×2 (10:20→20:43)
[2019-08-14] MEDS: HYDROXYUREA 500 MG CAP PO SCH (10:21)
[2019-08-14] MEDS: METOPROLOL TARTRATE 50 MG TAB PO SCH ×2 (10:21→20:42)
[2019-08-14] MEDS: RIVASTIGMINE 9.5MG/24HR PATCH TRANSDERM SCH (10:21)
--- NOTE | 2019-08-14 11:41 | P.CRDCN ---
History of Present Illness Consult date: 08/14/19 History of present illness: This is a 83-year-old gentleman with history of carotid disease who follows with Dr. Loving from [facility]. Patient also has history of hypertension, dyslipidemia, CVA and thrombocytosis. Patient had previous stent placement of the carotid. Patient probably has underlying dementia. He is not able to give any detailed history. He doesn't remember if he saw his mailing jogger recently. He doesn't know why he came to the hospital. According to the emergency room notes, patient has been having some chest pain. His EKG on admission showed evidence of atrial fibrillation with mildly rapid ventricular response. His cardiac enzymes have been negative. Patient seemed to be relatively comfortable at the time of my examination. He is on beta zachariah. I'm going to increase the dose to control the heart rate better. Patient has been on anticoagulation for long time, which will be continued. We'll get an echocardiogram. Previous echo Cardigan showed normal LV function. Further recommendation depending on the clinical course. His possible that patient may have underlying ischemic heart disease, given his multiple risk factors. However, patient seemed to be stable at the time of my examination Review of Systems As per the chart Past Medical History Past Medical History: Cancer, CVA/TIA, Dementia, Eye Disorder, GERD/Reflux, Hyperlipidemia, Hypertension, Osteoarthritis (OA), Renal Disease Additional Past Medical History / Comment(s): Hx. 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 Syncope. History of Any Multi-Drug Resistant Organisms: None Reported Past Surgical History: Adenoidectomy, Hernia Repair, Joint Replacement, Orthopedic Surgery, Tonsillectomy Additional Past Surgical History / Comment(s): R kidney donor, kiesha hip replacement, L hand trigger finger,uvuloplasty, left carotid stent, bilateral inguinal hernia repair, deviated septum repair, colonoscopy, R cataract removal with lens; Pain procedures. Past Anesthesia/Blood Transfusion Reactions: No Reported Reaction Past Psychological History: No Psychological Hx Reported Smoking Status: Never smoker Past Alcohol Use History: None Reported Past Drug Use History: None Reported - Past Family History Father Family Medical History: CVA/TIA Additional Family Medical History / Comment(s): Father at 80 from stroke Mother Family Medical History: No Reported History Additional Family Medical History / Comment(s): Mother at age 55 from polycystic kidney disease. Brother(s) Additional Family Medical History / Comment(s): Patient has 1 brother with multiple medical problems including diabetes. Sister(s) Family Medical History: Renal Disease Additional Family Medical History / Comment(s): Patient has one sister that at age 60 from kidney failure due to polycystic kidney disease. Daughter(s) Family Medical History: No Reported History Additional Family Medical History / Comment(s): Patient has one daughter with no major medical problems. Son(s) Additional Family Medical History / Comment(s): Patient has 5 sons. 2 at premature . One while skiing from a myocardial infarction at age 32. One son is alive with no major medical problems. Medications and Allergies Home Medications Medication Instructions Recorded Confirmed Type Allopurinol [Zyloprim] 300 mg PO DAILY 09/01/13 08/14/19 History hydrALAZINE HCL [Apresoline] 25 mg PO TID 09/01/13 08/14/19 History EPINEPHrine (Auto Inject) [Epipen] 0.3 mg IM ONCE PRN 01/06/17 08/14/19 History Gabapentin [Neurontin] 300 mg PO BID 06/13/17 08/14/19 History Pantoprazole Sodium [Protonix] 40 mg PO AC-BRKFST 08/04/17 08/14/19 History Metoprolol Tartrate 25 mg PO BID #60 tab 08/06/17 08/14/19 Rx Rivastigmine 9.5MG/24Hr Patch 1 patch TRANSDERM Q24HR 05/29/19 08/14/19 History [Exelon 9.5MG/24Hr Patch] Acetaminophen Tab [Tylenol] 650 mg PO Q6HR PRN tab 05/31/19 08/14/19 Rx Apixaban [Eliquis] 5 mg PO DAILY 08/14/19 08/14/19 History Aspirin EC [Ecotrin Low Dose] 81 mg PO DAILY 08/14/19 08/14/19 History Atorvastatin Calcium [Lipitor] 20 mg PO DAILY 08/14/19 08/14/19 History Econazole 1% Cream [Spectazole] 1 applic TOPICAL BID PRN 08/14/19 08/14/19 History Hydroxyurea 2,000 mg PO DAILY 08/14/19 08/14/19 History Allergies Allergy/AdvReac Type Severity Reaction Status Date / Time venom-honey bee Allergy Anaphylaxis Verified 08/14/19 07:37 [bee venom (honey bee)] Physical Exam Vitals: Vital Signs Temp Pulse Pulse Resp BP BP Pulse Ox 08/14/19 08:00 97.9 F 106 H 18 166/74 96 08/14/19 04:00 98.1 F 101 H 16 123/73 97 08/14/19 01:26 97.3 F L 98 16 115/66 94 L 08/13/19 22:29 97.9 F 107 H 20 111/66 94 L Intake and Output 08/13/19 08/14/19 08/14/19 22:59 06:59 14:59 Output Total 350 500 Balance -350 -500 Output: Urine 350 500 Other: Voiding Method Toilet Toilet Urinal # Voids 1 1 Weight 95.254 kg 101.5 kg GENERAL EXAM: Patient is alert and oriented and doesn't appear to be in any acute distress HEENT: Normocephalic. Normal reaction of pupils, equal size, normal range of extraocular motion. No erythema or exudates in the throat. NECK: No masses, no nuchal rigidity. CHEST: No chest wall deformity. LUNGS: Equal air entry with no crackles or wheeze. HEART: S1 and S2 normal. Irregular heart rhythm ABDOMEN: No hepatosplenomegaly, normal bowel sounds, no guarding or rigidity. SKIN: No rashes CENTRAL NERVOUS SYSTEM: No focal deficits. EXTREMITIES: No cyanosis, clubbing or edema. Results 08/13/19 22:37 08/13/19 22:37 Cardiac Enzymes 08/13/19 08/13/19 08/14/19 Range/Units 22:37 22:37 01:58 AST 24 (17-59) U/L Troponin I <0.012 <0.012 (0.000-0.034) ng/mL 08/14/19 Range/Units 05:48 AST (17-59) U/L Troponin I <0.012 (0.000-0.034) ng/mL Coagulation 08/13/19 Range/Units 22:37 PT 11.1 (9.0-12.0) sec APTT 20.5 L (22.0-30.0) sec CBC 08/13/19 Range/Units 22:37 WBC 3.9 (3.8-10.6) k/uL RBC 2.06 L (4.30-5.90) m/uL Hgb 9.4 L (13.0-17.5) gm/dL Hct 28.3 L (39.0-53.0) % Plt Count 523 H (150-450) k/uL Comprehensive Metabolic Panel 08/13/19 Range/Units 22:37 Sodium 134 L (137-145) mmol/L Potassium 4.9 (3.5-5.1) mmol/L Chloride 106 (98-107) mmol/L Carbon Dioxide 21 L (22-30) mmol/L BUN 29 H (9-20) mg/dL Creatinine 1.46 H (0.66-1.25) mg/dL Glucose 91 (74-99) mg/dL Calcium 8.7 (8.4-10.2) mg/dL AST 24 (17-59) U/L ALT 8 (4-49) U/L Alkaline Phosphatase 40 (38-126) U/L Total Protein 5.5 L (6.3-8.2) g/dL Albumin 3.3 L (3.5-5.0) g/dL Current Medications Generic Name Dose Route Start Last Admin Trade Name Freq PRN Reason Stop Dose Admin Acetaminophen 650 mg 08/14/19 01:05 Tylenol Tab PO Q6HR PRN Fever and/ or Pain Allopurinol 300 mg 08/14/19 09:00 08/14/19 10:20 Zyloprim PO 300 mg DAILY [facility] Administration Apixaban 10 mg 08/14/19 09:00 Eliquis PO BID [facility] Aspirin 325 mg 08/15/19 09:00 Aspirin PO DAILY [facility] Cholecalciferol 2,000 unit 08/14/19 09:00 08/14/19 10:20 Vitamin D3 (25 Mcg = 1000 Iu) PO 2,000 unit DAILY JS Administration Gabapentin 300 mg 08/14/19 09:00 08/14/19 10:20 Neurontin PO 300 mg BID JS Administration Hydralazine HCl 25 mg 08/14/19 09:00 08/14/19 10:20 Apresoline PO 25 mg BID JS Administration Hydroxyurea 1,000 mg 08/14/19 09:00 08/14/19 10:21 Hydrea PO 1,000 mg DAILY JS Administration Metoprolol Tartrate 50 mg 08/14/19 10:15 08/14/19 10:21 Lopressor PO 50 mg BID JS Administration Nitroglycerin 0.4 mg 08/14/19 01:03 Nitrostat SUBLINGUAL Q5M PRN Chest Pain Pantoprazole Sodium 40 mg 08/14/19 07:30 08/14/19 06:25 Protonix PO Not Given AC-BRKFST JS Rivastigmine 1 patch 08/14/19 09:00 08/14/19 10:21 Exelon 9.5mg/24hr Patch TRANSDERM 1 patch Q24HR JS Administration Sodium Chloride 10 ml 08/14/19 09:00 08/14/19 09:33 Saline Flush IV 10 ml BID JS Administration Intake and Output 08/13/19 08/14/19 08/14/19 22:59 06:59 14:59 Output Total 350 500 Balance -350 -500 Output: Urine 350 500 Other: Voiding Method Toilet Toilet Urinal # Voids 1 1 Weight 95.254 kg 101.5 kg 08/13/19 22:37 08/13/19 22:37 EKG Interpretations (text) Atrial fibrillation with a moderately rapid ventricular response Assessment and Plan (1) New onset atrial fibrillation Current Visit: Yes Status: Acute Code(s): I48.91 - UNSPECIFIED ATRIAL FIBR ILLATION SNOMED Code(s): 99387804 (2) Chest pain Current Visit: Yes Status: Acute Code(s): R07.9 - CHEST PAIN, UNSPECIFIED SNOMED Code(s): 61796133 (3) Anemia Current Visit: No Status: Acute Code(s): D64.9 - ANEMIA, UNSPECIFIED SNOMED Code(s): 714489502 (4) Chronic renal failure Current Visit: No Status: Acute Code(s): N18.9 - CHRONIC KIDNEY DISEASE, UNSPECIFIED SNOMED Code(s): 92492330 Plan: Continue current medical therapy. Increase the dose of the beta zachariah. Get an echocardiogram. He patient is stable, patient could be discharged home on a medical therapy to have follow-up with his mailing jogger as an outpatient.
--- NOTE | 2019-08-14 16:00 | HP ---
HISTORY AND PHYSICAL DATE OF SERVICE: 08/14/2019 CHIEF COMPLAINT: Chest pain. I am covering for Dr. Sandra. HISTORY OF PRESENT ILLNESS: This is an 83-year-old gentleman with a past history of dementia, history of GERD, hypertension, hyperlipidemia, being followed by Dr. Sandra in the outpatient seeing, was recently admitted with rib fracture and as well as pulmonary embolism. Currently the patient apparently came to [facility] with complaints of chest pain which was vague in nature in the substernal area. The patient was also mildly confused and the patient was admitted for evaluation and treatment. Atrial fibrillation with fast ventricular rate was also suspect. A detailed history cannot be taken from the patient because of the patient's dementia and most was taken per my discussion with staff and review of the charts at this time. The patient also had falls and patient was previously on Eliquis. A CT scan of the brain was not done, which is being ordered currently. There is no history of any fever, rigors, chills. No history of trauma currently. PAST MEDICAL HISTORY: History of dementia, history atrial fibrillation, hypertension, hyperlipidemia, DJD, history of adenoidectomy. HOME MEDICATIONS: 1. Aspirin 81 mg daily. 2. Hydroxyurea. 3. Spectazole. 4. Eliquis 5 mg p.o. daily. 5. Lipitor 20 mg daily. 6. Apresoline 25 mg t.i.d. 7. Exelon patch 1 patch q.24 hours. 8. Protonix 40 mg with breakfast. 9. Metoprolol 25 mg p.o. b.i.d. 10.Epinephrine 0.3 IM once p.r.n. 11.Neurontin 300 mg p.o. b.i.d. 12.Zyloprim 300 mg p.o. daily. 13.Tylenol 650 q.6 p.r.n. ALLERGIES: BEE VENOM. FAMILY HISTORY: History of CVA, TIA in the family. SOCIAL HISTORY: No history of alcohol intake. No history of smoking. REVIEW OF SYSTEM: Could not be taken because of the above mentioned reasons. PHYSICAL EXAM: Patient is conscious, confused. Pulse is 126, irregular. Blood pressure 148/76, pulse 70, temperature 98.1, pulse ox 97% on room air. HEENT: Conjunctivae are normal. Oral mucosa moist. NECK: No jugular venous distention. No carotid bruit. CARDIOVASCULAR SYSTEM: S1 and S2 irregular, tachycardic. RESPIRATIONS: Breath sounds diminished in the bases, a few scattered rhonchi. No crackles. ABDOMEN: Soft, nontender. LEGS: No edema. NERVOUS SYSTEM: No focal deficits. LAB STUDIES: WBC 3.9, hemoglobin 9.4, MCV is 137.5, sodium 130, potassium 4.9 and albumin 3.3. ASSESSMENT: 1. Chest pain for evaluation, possible coronary artery disease. 2. Atrial fibrillation with fast ventricular rate. 3. Anemia, macrocytic. 4. Increased platelets. 5. Hyponatremia. 6. Increased creatinine with acute on chronic renal failure with chronic kidney, stage 4 as baseline. 7. History of dementia. 8. History of cerebrovascular accident and transient ischemic attack. 9. Gastroesophageal reflux disease. 10.Hypertension. 12.History of degenerative joint disease. 13.History of diverticulitis. 14.Thrombocytosis. 15.History of right kidney donation. 16.History of skin cancer. 17.History of transient ischemic attack .. 18.History of gout. 19.History of gait dysfunction. 20.History of multiple bee stings. 21.History of pulmonary embolism. RECOMMENDATIONS: This 83-year-old gentleman who presented with multiple complex medical issues, we will monitor the patient closely. Continue the current management and symptomatic treatment. Otherwise at this time I recommend PT/OT evaluation. Continue with beta blockers and Hydroxyurea. Resume the home medications. Hold off the anticoagulation. Guarded prognosis because of multiple complex medical issues. Further recommendations to follow. See orders for details. MMODL / IJN: [id number] / MTDD
[2019-08-15 04:18] VITALS: RESP 18
[2019-08-15] MEDS: PANTOPRAZOLE 40 MG TABLET PO SCH (06:38)
[2019-08-15 08:10] LABS: Calcium 9.5 mg/dL (8.4-10.2); Potassium 4.8 mmol/L (3.5-5.1)
[2019-08-15 08:35] LABS: Anisocytosis Slight; HCT 37.4 % (39.0-53.0); HGB 11.9 gm/dL (13.0-17.5); Hypochromasia Moderate; MCHC 31.8 g/dL (31.0-37.0); MCV 142.1 fL (80.0-100.0); Macrocytosis Marked; Mean Platelet Volume 8.7; Platelet Count 637 k/uL (150-450); Poikilocytosis Slight; RBC 2.63 m/uL (4.30-5.90); RDW 17.9 % (11.5-15.5)
[2019-08-15 08:36] LABS: MCH 45.2 pg (25.0-35.0)
[2019-08-15] MEDS: GABAPENTIN 300 MG CAP PO SCH (08:41)
[2019-08-15] MEDS: allopurinoL 300 MG TAB PO SCH (08:41)
[2019-08-15] MEDS: METOPROLOL TARTRATE 50 MG TAB PO SCH (08:41)
[2019-08-15] MEDS: CHOLECALCIFEROL 1,000 UNIT TAB PO SCH (08:41)
[2019-08-15] MEDS: RIVASTIGMINE 9.5MG/24HR PATCH TRANSDERM SCH (08:42)
[2019-08-15] MEDS: HYDROXYUREA 500 MG CAP PO SCH (08:42)
[2019-08-15] MEDS: hydrALAZINE HCL 25 MG TAB PO SCH (08:42)
[2019-08-15] MEDS ORDERED: ATORVASTATIN 20 MG TAB PO SCH (09:00)
[2019-08-15] MEDS ORDERED: ASPIRIN 81 MG PO SCH (09:00)
[2019-08-15] MEDS ORDERED: ASPIRIN 325 MG TAB PO SCH (09:00)
[2019-08-15 09:07] LABS: Neutrophils % (M) 74 %; Nucleated Red Blood Cells 2 /100 WBC (0-0); Total Cells Counted 200
[2019-08-15 09:08] LABS: Eosinophils # (M) 0.24 k/uL (0-0.7); Lymphocytes # (M) 0.61 k/uL (1.0-4.8); Monocytes # (M) 0.73 k/uL (0-1.0); Neutrophils # (M) 4.51 k/uL (1.3-7.7); Polychromasia Present; WBC 6.1 k/uL (3.8-10.6)
--- NOTE | 2019-08-15 10:31 | CT ---
EXAMINATION TYPE: CT brain wo con DATE OF EXAM: 08/15/2019 COMPARISON: 04/02/2018 INDICATION: Patient poor historian. DLP: 1217.4 mGycm, Automated exposure control for dose reduction was used. CONTRAST: None CT of the brain is performed utilizing 3 mm thick sections through the posterior fossa and 3 mm thick sections through the remaining calvarium. Study is performed within 24 hours of arrival to the hosp [facility]. No abnormal hyperdensity is present to suggest an acute intracranial hemorrhage. No mass lesion is evident. No acute infarcts are evident. There are chronic subcortical white matter changes Ventricles and sulci are slightly prominent for the patient age. Paranasal sinuses and mastoid air cells within the [id number] are clear. IMPRESSIONS: 1. Chronic white matter changes with atrophy.
--- NOTE | 2019-08-15 10:52 | P.PN ---
Subjective Progress Note Date: 08/15/19 This patient with history of previous carotid disease and possible dementia. He admitted to the hospital with some chest pain and also newly detected atrial fibrillation. His heart rate is well controlled. He was on anticoagulation therapy which is held by primary care physician. This morning patient is sitting in the chair and doesn't appear to be in acute distress. No complaints of any chest pain or shortness of breath. His troponins are within normal limits. Patient had a computed tomography scan of the brain which showed some atrophy. No evidence for acute stroke. Patient seemed to be relatively stable. From Cardec standpoint he could be discharged home medical therapy along with anticoagulation, If there is no contraindication. Follow-up with his engineer sergeant as an outpatient Objective - Vital Signs Vital signs: Vital Signs Temp 97.7 F 08/15/19 08:00 Pulse 96 08/15/19 08:00 Resp 18 08/15/19 08:00 BP 121/56 08/15/19 08:00 Pulse Ox 92 L 08/15/19 08:00 Intake & Output 08/14/19 08/15/19 08/15/19 18:59 06:59 18:59 Intake Total 240 Output Total 1500 Balance -1260 Weight 93.7 kg Intake: Oral 240 Output: Urine 1500 Other: Voiding Method Toilet Toilet Toilet Urinal Urinal Urinal # Voids 3 1 1 # Bowel Movements 4 - Exam GENERAL EXAM: Patient is alert and oriented and doesn't appear to be in any acute distress HEENT: Normocephalic. Normal reaction of pupils, equal size, normal range of e xtraocular motion. No erythema or exudates in the throat. NECK: No masses, no nuchal rigidity. CHEST: No chest wall deformity. LUNGS: Equal air entry with no crackles or wheeze. HEART: S1 and S2 normal . Irregular heart sounds ABDOMEN: No hepatosplenomegaly, normal bowel sounds, no guarding or rigidity. SKIN: No rashes CENTRAL NERVOUS SYSTEM: No focal deficits. EXTREMITIES: No cyanosis, clubbing or edema. - Labs CBC & Chem 7: 08/15/19 07:17 08/15/19 07:17 Labs: Abnormal Lab Results - Last 24 Hours (Table) 08/15/19 08/15/19 Range/Units 07: 07:17 RBC 2.63 L (4.30-5.90) m/uL Hgb 11.9 L (13.0-17.5) gm/dL Hct 37.4 L (39.0-53.0) % MCV 142.1 H (80.0-100.0) fL MCH 45.2 H (25.0-35.0) pg RDW 17.9 H (11.5-15.5) % Plt Count 637 H (150-450) k/uL Lymphocytes # (Manual) 0.61 L (1.0-4.8) k/uL Nucleated RBCs 2 H (0-0) /100 WBC Macrocytosis Marked A BUN 25 H (9-20) mg/dL Glucose 114 H (74-99) mg/dL Triglycerides 207 H (<150) mg/dL Assessment and Plan (1) New onset atrial fibrillation Current Visit: Yes Status: Acute Code(s): I48.91 - UNSPECIFIED ATRIAL FIBRILLATION SNOMED Code(s): 46697324 (2) Chest pain Current Visit: Yes Status: Acute Code(s): R07.9 - CHEST PAIN, UNSPECIFIED SNOMED Code(s): 41094044 (3) Anemia Current Visit: No Status: Acute Code(s): D64.9 - ANEMIA, UNSPECIFIED SNOMED Code(s): 092497087 (4) Chronic renal failure Current Visit: No Status: Acute Code(s): N18.9 - CHRONIC KIDNEY DISEASE, UNSPECIFIED SNOMED Code(s): 00232499 Plan: Patient seemed to be clinically stable without any chest pain or distress. His Cardec enzymes are negative. Is in atrial fibrillation with controlled and corresponds. Patient used to be on anticoagulation therapy which is held by PCP. From Cardec standpoint, anticoagulation will be reinstated as soon as possible, if there is no contraindication. Follow-up with his own engineer sergeant
[2019-08-15 13:06] VITALS: BP 119/65; PULSE 92; TEMP 98.1
--- NOTE | 2019-08-16 09:40 | DS ---
DISCHARGE SUMMARY DATE OF SERVICE: 08/15/2019. FINAL DIAGNOSES: 1. Chest pain, myocardial infarction ruled out. 2. Atrial fibrillation with fast ventricular rate. 3. Anemia macrocytic. 4. Increased platelets. 5. Hyponatremia. 6. Increased creatinine with acute on chronic renal failure with chronic kidney disease stage 4 baseline. 7. History of dementia. 8. History of cerebrovascular accident, transient ischemic attack. 9. Gastroesophageal reflux disease. 10.Hypertension. 11.History of degenerative joint disease. 12.History of diverticulitis. 13.Thrombocytosis. 14.History of right kidney donation. 15.History of skin cancer. 16.History of transient ischemic attack. 17.History of gout. 18.History of gait dysfunction. 19.History of multiple bee stings. 20.History of pulmonary embolism. DISCHARGE DISPOSITION: The patient will be discharged in stable condition with guarded prognosis. Cardiology cleared the patient for discharge. HISTORY OF PRESENT ILLNESS: This 83-year-old gentleman with a past medical history of multiple medical problems being followed by Dr. Sandra in the outpatient was admitted for chest pain. Myocardial infarction ruled out. Cardiology saw the patient. Atrial fibrillation rate was controlled. Evaluations were basically negative. The patient improved significantly. Cardiology cleared the patient for discharge. The patient will be discharged in stable condition with guarded prognosis. On exam, vitals are stable. Cardio: S1, S2. Abdomen soft. Nervous system: No focal deficits. DISCHARGE ADVICE AND MEDICATIONS: 1. Follow up with Dr. Sandra in 1-2 days. 2. Follow up with Dr. Sky as recommended. 3. Hydralazine 25 mg p.o. t.i.d. 4. Ecotrin 81 mg. 5. Rivastigmine patch as before. 6. Hydroxyurea 2000 mg p.o. daily. 7. Lipitor 20 mg p.o. daily. 8. Neurontin 300 mg p.o. b.i.d. 9. Protonix 40 mg b.i.d. 10.Spectazole 1 application topically. 11.Zyloprim 300 mg p.o. daily. 12.Eliquis 5 mg p.o. daily. 13.Lopressor 50 mg p.o. b.i.d. 14.Tylenol p.r.n. MMODL / JUANN: [id number] /
== END 2019-08-15 14:31 | disposition home or self-care (01) ==
LOC: EC 22:06 → 3SCARD 08-14 01:05
PROVIDERS: ADMIT Internal Medicine; ATTEND Internal Medicine
DX: R07.89 Other chest pain (principal); I48.91 Unspecified atrial fibrillation; D53.9 Nutritional anemia, unspecified; D47.3 Essential (hemorrhagic) thrombocythemia; E87.1 Hypo-osmolality and hyponatremia; I12.9 Hypertensive chronic kidney disease with stage 1 through stage 4 chronic kidney disease, or unspecified chronic kidney disease; N18.4 Chronic kidney disease, stage 4 (severe); N17.9 Acute kidney failure, unspecified; G31.9 Degenerative disease of nervous system, unspecified; F02.80 Dementia in other diseases classified elsewhere, unspecified severity, without behavioral disturbance, psychotic disturbance, mood disturbance, and anxiety; K21.9 Gastro-esophageal reflux disease without esophagitis; M19.90 Unspecified osteoarthritis, unspecified site; K57.90 Diverticulosis of intestine, part unspecified, without perforation or abscess without bleeding; M10.9 Gout, unspecified; R94.31 Abnormal electrocardiogram [ECG] [EKG]; E78.5 Hyperlipidemia, unspecified; G89.29 Other chronic pain; M54.9 Dorsalgia, unspecified; I77.89 Other specified disorders of arteries and arterioles; Z03.818 Encounter for observation for suspected exposure to other biological agents ruled out; Z86.73 Personal history of transient ischemic attack (TIA), and cerebral infarction without residual deficits; Z52.4 Kidney donor; Z85.828 Personal history of other malignant neoplasm of skin; Z87.898 Personal history of other specified conditions; Z86.711 Personal history of pulmonary embolism; Z91.030 Bee allergy status; Z91.81 History of falling; Z79.899 Other long term (current) drug therapy; Z79.01 Long term (current) use of anticoagulants; Z79.82 Long term (current) use of aspirin; Z86.69 Personal history of other diseases of the nervous system and sense organs; Z87.19 Personal history of other diseases of the digestive system; Z86.19 Personal history of other infectious and parasitic diseases; Z87.81 Personal history of (healed) traumatic fracture; Z90.89 Acquired absence of other organs; Z98.890 Other specified postprocedural states; Z96.643 Presence of artificial hip joint, bilateral; Z95.828 Presence of other vascular implants and grafts; Z98.41 Cataract extraction status, right eye; Z96.1 Presence of intraocular lens; Z82.3 Family history of stroke; Z82.71 Family history of polycystic kidney; Z83.3 Family history of diabetes mellitus; Z84.1 Family history of disorders of kidney and ureter; Z82.49 Family history of ischemic heart disease and other diseases of the circulatory system
CPT/HCPCS: 93005 ×3; 99285; 36415; 85379; 83880; 80061; 80053; 80048; 82150; 82550; 83690; 83735; 84484 ×2; 85025 ×2; 85610; 85730; 71046; 70450; G0378 ×2; U0003; S0176 ×2

== ENCOUNTER 2019-08-23 10:02 | Emergency (ER) | payer MEDICARE ==
[2019-08-23 10:09] VITALS: RESP 18; TEMP 97.9
[2019-08-23] MEDS ORDERED: DIPH,PERTUS(ACELL)TETVAC-LF 0.5 ML VIAL IM ONE (10:42)
--- NOTE | 2019-08-23 11:39 | CT ---
EXAMINATION TYPE: CT brain cspine wo con DATE OF EXAM: 08/23/2019 COMPARISON: CT brain 11/15/2019 HISTORY: Fall, bruising and swelling to Rt orbit CT DLP: 1601.1 mGycm Automated exposure control for dose reduction was used. TECHNIQUE: CT scan of the head and cervical spine are performed without contrast. FINDINGS: There is no acute intracranial hemorrhage, mass effect, or midline shift identified. The ventricles and sulci are within normal limits in size. The globes are intact and the visualized sin uses are clear. Preseptal soft tissue swelling noted over the right orbit. There is cortical atrophy. Periventricular white matter shows patchy low attenuation. Cervical spine is visualized in its entirety from C1 through upper thoracic levels and demonstrates s atisfactory alignment without evidence of acute fracture or dislocation. Prevertebral soft tissue ap pears within normal limits. The C1-C2 articulation is unremarkable. 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 Is multilevel facet arthropathy and foraminal encroachment. Multilevel h ypertrophic spondylosis is present. Internal carotid artery stent is present on the left extending f rom the common carotid. IMPRESSION: 1. There is no acute fracture or dislocation evident in the cervical spine. 2. No acute intracranial hemorrhage, mass effect, or midline shift is seen. 3. Degenerative disc disease, there may be diffuse idiopathic skeletal hyperostosis.
--- NOTE | 2019-08-23 11:59 | ED ---
Fall HPI - General Chief Complaint: Fall Stated Complaint: fall Time Seen by Provider: 08/23/19 10:12 Source: patient, EMS Mode of arrival: EMS - History of Present Illness Initial Comments: 83-year-old male on eliquis presenting to the emergency department today for chief complaint of fall. Patient states he is pulling weeds when he pulled too hard he states he started to lose his balance he tried to catch his balance falling forward hitting his face on the ground. Patient states he did not lose consciousness. Patient states that he did not pass out patient states he simply lost his balance which frequently happens. Patient states that he has no neck pain no back pain no abdominal or chest pain. Patient denies any injury to the upper or lower extremities. Patient denies any epistaxis. Patient denies any diplopia or visual changes headache nausea vomiting. Patient states he has some tenderness at the abrasion of his right side of his forehead. Patient denies additional complaints or concerns. Upon arrival he appears well no distress. C- collar in place. - Related Data Home Medications Medication Instructions Recorded Confirmed Allopurinol [Zyloprim] 300 mg PO DAILY 09/01/13 08/14/19 hydrALAZINE HCL [Apresoline] 25 mg PO TID 09/01/13 08/14/19 EPINEPHrine (Auto Inject) [Epipen] 0.3 mg IM ONCE PRN 01/06/17 08/14/19 Gabapentin [Neurontin] 300 mg PO BID 06/13/17 08/14/19 Pantoprazole Sodium [Protonix] 40 mg PO AC-BRKFST 08/04/17 08/14/19 Rivastigmine 9.5MG/24Hr Patch 1 patch TRANSDERM Q24HR 05/29/19 08/14/19 [Exelon 9.5MG/24Hr Patch] Aspirin EC [Ecotrin Low Dose] 81 mg PO DAILY 08/14/19 08/14/19 Atorvastatin Calcium [Lipitor] 20 mg PO DAILY 08/14/19 08/14/19 Econazole 1% Cream [Spectazole] 1 applic TOPICAL BID PRN 08/14/19 08/14/19 Hydroxyurea 2,000 mg PO DAILY 08/14/19 08/14/19 Previous Rx's Medication Instructions Recorded Acetaminophen Tab [Tylenol] 650 mg PO Q6HR PRN tab 04/19/20 Apixaban [Eliquis] 5 mg PO DAILY #1 08/15/19 Metoprolol Tartrate [Lopressor] 50 mg PO BID #0 tab 08/15/19 Allergies Allergy/AdvReac Type Severity Reaction Status Date / Time venom-honey bee Allergy Anaphylaxis Verified 08/14/19 07:37 [bee venom (honey bee)] Review of Systems ROS Statement: Those systems with pertinent positive or pertinent negative responses have been documented in the HPI. ROS Other: All systems not noted in ROS Statement are negative. Past Medical History Past Medical History: Cancer, CVA/TIA, Dementia, Eye Disorder, GERD/Reflux, Hyperlipidemia, Hypertension, Osteoarthritis (OA), Renal Disease Additional Past Medical History / Comment(s): Hx. 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 Syncope. History of Any Multi-Drug Resistant Organisms: None Reported Past Surgical History: Adenoidectomy, Hernia Repair, Joint Replacement, Orthopedic Surgery, Tonsillectomy Additional Past Surgical History / Comment(s): R kidney donor, kiesha hip replacement, L hand trigger finger,uvuloplasty, left carotid stent, bilateral inguinal hernia repair, deviated septum repair, colonoscopy, R cataract removal with lens; Pain procedures. Past Anesthesia/Blood Transfusion Reactions: No Reported Reaction Past Psychological History: No Psychological Hx Reported Smoking Status: Never smoker Past Alcohol Use History: Daily Past Drug Use History: None Reported - Past Family History Father Family Medical History: CVA/TIA Additional Family Medical History / Comment(s): Father at 80 from stroke Mother Family Medical History: No Reported History Additional Family Medical History / Comment(s): Mother at age 55 from polycystic kidney disease. Brother(s) Additional Family Medical History / Comment(s): Patient has 1 brother with multiple medical problems including diabetes. Sister(s) Family Medical History: Renal Disease Additional Family Medical History / Comment(s): Patient has one sister that at age 60 from kidney failure due to polycystic kidney disease. Daughter(s) Family Medical History: No Reported History Additional Family Medical History / Comment(s): Patient has one daughter with no major medical problems. Son(s) Additional Family Medical History / Comment(s): Patient has 5 sons. 2 at premature . One while skiing from a myocardial infarction at age 32. One son is alive with no major medical problems. General Exam - General Exam Comments Initial Comments: General: The patient is awake and alert, in no distress Eye: +3 mm pupils are equal, round and reactive to light, extra-ocular movements are intact. No nystagmus. There is normal conjunctiva bilaterally. No signs of icterus. Orbits were palpated and appear intact grossly. Ears, nose, mouth and throat: There are moist mucous membranes and no oral lesions. No raccoon no Torres sign.No septal hematoma Neck: The neck is supple, there is no tenderness or JVD. Cardiovascular: There is a regular rate and rhythm. No murmur, rub or gallop is appreciated. Respiratory: Lungs are clear to auscultation, respirations are non-labored, breath sounds are equal. No wheezes, stridor, rales, or rhonchi. Gastrointestinal: Soft, non-distended, non-tender abdomen without masses or organomegaly noted. There is no rebound or guarding present. Musculoskeletal: No tenderness to palpation of the joints of the upper or lower extremities Normal ROM, no tenderness. Strength 5/5. Sensation intact. radial pulses equal bilaterally 2+. Neurological: A&O x 3. CN II-XII intact, There are no obvious motor or sensory deficits. Coordination appears grossly intact. Speech is normal. Skin: Skin is warm and dry and no rashes. irregular abrasion over right side of forehead, there is an abrasion over the nose, and right cheek. No active bleeding. NO large laceration Psychiatric: Cooperative, appropriate mood & affect, normal judgment. Limitations: no limitations Course Vital Signs 08/23/19 10:03 Temperature 97.9 F Pulse Rate 88 Respiratory 18 Rate Blood Pressure 134/82 O2 Sat by Pulse 96 Oximetry Medical Decision Making - Medical Decision Making Appearing 83-year-old male presenting for fall from standing after losing balance pulling weeds. Imaging studies negative for acute process no midline neck pain for which motion the cervical spine without difficulty. Patient's abrasions were cleansed tetanus updated. Patient bleeding controlled. no laceration noted for repair. Patient denies additional complaints aside from pain at the site of abrasions. at this time I feel patient is stable for discharge wt PCP f/u. Return parameters discussed and patient was discharged appearing well. beside who is also agreeable to care plan and discharge. return parameters were discussed. Disposition Clinical Impression: Fall, Abrasion of forehead, Fall from slip, trip, or stumble Disposition: HOME SELF-CARE Condition: Good Instructions (If sedation given, give patient instructions): Fall Prevention for Older Adults (ED) Additional Instructions: Please use medication as discussed. Please follow-up with family doctor in the next 2 days. Please return to emergency room if the symptoms increase or worsen or for any other concerns. Is patient prescribed a controlled substance at d/c from ED?: No Referrals: Laurita Sandra MD [Primary Care Provider] - 1-2 days Time of Disposition: 11:59
[2019-08-23 12:25] VITALS: BP 115/96; PULSE 98
== END 2019-08-23 12:30 | disposition home or self-care (01) ==
LOC: EC 10:02
DX: S00.81XA Abrasion of other part of head, initial encounter (principal); F03.90 Unspecified dementia, unspecified severity, without behavioral disturbance, psychotic disturbance, mood disturbance, and anxiety; K21.9 Gastro-esophageal reflux disease without esophagitis; E78.5 Hyperlipidemia, unspecified; I10 Essential (primary) hypertension; M19.90 Unspecified osteoarthritis, unspecified site; M10.9 Gout, unspecified; G89.29 Other chronic pain; M54.9 Dorsalgia, unspecified; Z79.899 Other long term (current) drug therapy; Z79.82 Long term (current) use of aspirin; Z96.643 Presence of artificial hip joint, bilateral; Z91.030 Bee allergy status; Z86.73 Personal history of transient ischemic attack (TIA), and cerebral infarction without residual deficits; Z87.19 Personal history of other diseases of the digestive system; Z85.828 Personal history of other malignant neoplasm of skin; Z23 Encounter for immunization; W01.198A Fall on same level from slipping, tripping and stumbling with subsequent striking against other object, initial encounter; Y93.89 Activity, other specified; Y92.009 Unspecified place in unspecified non-institutional (private) residence as the place of occurrence of the external cause
CPT/HCPCS: 70450; 72125; 90471; 90715; 99284

== ENCOUNTER 2019-11-07 18:42 | Inpatient (IN) | payer MEDICARE ==
[2019-11-07 19:31] LABS: INR 1.2 (<1.2); Partial Thromboplastin Time 26.9 sec (22.0-30.0); Prothrombin Time 12.5 sec (9.0-12.0)
[2019-11-07 19:32] LABS: Anisocytosis Slight; HCT 29.1 % (39.0-53.0); HGB 8.7 gm/dL (13.0-17.5); Hypochromasia Marked; MCH 39.8 pg (25.0-35.0); MCHC 29.9 g/dL (31.0-37.0); Macrocytosis Marked; Mean Platelet Volume 8.3; Poikilocytosis Moderate; RBC 2.19 m/uL (4.30-5.90); RDW 18.9 % (11.5-15.5)
[2019-11-07 19:33] LABS: Albumin 3.5 g/dL (3.5-5.0); Calcium 8.9 mg/dL (8.4-10.2); Magnesium 1.8 mg/dL (1.6-2.3); Potassium 5.3 mmol/L (3.5-5.1); Total Bilirubin 1.2 mg/dL (0.2-1.3); Total Protein 5.7 g/dL (6.3-8.2)
--- NOTE | 2019-11-07 19:48 | XR ---
EXAMINATION TYPE: XR chest 2V DATE OF EXAM: 11/07/2019 COMPARISON: August 13, 2019 HISTORY: Chest pain TECHNIQUE: FINDINGS: There is some airspace infiltrate posteriorly on the lateral view that is mostly in the rig ht lower lobe. There is no heart failure. Heart is slightly enlarged. There is slight blunting right costophrenic angle. There are chest leads. IMPRESSION: There is evidence for right lower lobe pneumonia and right pleural effusion that is new c ompared to old exam. No heart failure.
[2019-11-07 20:12] LABS: Platelet Count 1369 k/uL (150-450)
[2019-11-07 20:14] LABS: Large Platelets Present
[2019-11-07 20:19] LABS: Band Neutrophils % 9 %; Metamyelocytes % 6 %; Myelocytes % 2 %; Neutrophils % (M) 63 %; Nucleated Red Blood Cells 2 /100 WBC (0-0); Total Cells Counted 200
[2019-11-07] MEDS ORDERED: cefTRIAXone IN SWFI 1,000 MG/10 ML SYRINGE IVP STA (20:54)
[2019-11-07] MEDS ORDERED: AZITHROMYCIN 500 MG in SODIUM CHLORIDE 0.9% 250 ML IVPB STA (20:54)
--- NOTE | 2019-11-07 21:00 | ED ---
Chest Pain HPI - General Chief Complaint: Chest Pain Stated Complaint: LATRICE Time Seen by Provider: 11/07/19 18:45 Source: patient Mode of arrival: wheelchair Limitations: no limitations - History of Present Illness Initial Comments: 83-year-old male with past history of essential thrombocytosis, coronary artery disease, hypertension, CVA presents emergency room with reported sudden onset of chest pain or shortness of breath or to minutes to the hospital arrival. He states that he was at home, sitting in his chair when he felt like he couldn't breathe began having epigastric chest pain. Denies any provocative factors. Pain is described as a "gas sensation". Patient would not let up and therefore he came to the emergency room for evaluation. Denies previous history of similar event. no underlying lung disease such as COPD. Mixed a mildly productive cough. No hemoptysis. No ripping or tearing sensation to her back. No unilateral numbness or weakness. Denies associated nausea, vomiting or diaphoresis. Does admit to worsening lower extremity edema over the past week. Denies previous history of heart failure. Patient is on Eliquis for a history of A. fib. Denies taking any diuretics. Denies history of DVT or PE. Patient has a history of thrombocytosis. Was on Hydrea however stopped taking Saturday after he was taken off of it by Dr. Moreno. Denies fevers or chills. No other alleviating, precipitating or modifying factors - Related Data Home Medications Medication Instructions Recorded Confirmed allopurinoL [Zyloprim] 300 mg PO DAILY 09/01/13 11/07/19 hydrALAZINE HCL [Apresoline] 25 mg PO AC-TID 09/01/13 11/07/19 EPINEPHrine (Auto Inject) [Epipen] 0.3 mg IM ONCE PRN 01/06/17 11/07/19 Gabapentin [Neurontin] 300 mg PO BID 06/13/17 11/07/19 Pantoprazole Sodium [Protonix] 40 mg PO AC-BRKFST 08/04/17 11/07/19 Rivastigmine 9.5MG/24Hr Patch 1 patch TRANSDERM Q24HR 05/29/19 11/07/19 [Exelon 9.5MG/24Hr Patch] Aspirin EC [Ecotrin Low Dose] 81 mg PO DAILY 08/14/19 11/07/19 Atorvastatin Calcium [Lipitor] 20 mg PO DAILY 08/14/19 11/07/19 Hydroxyurea 2,000 mg PO DIRECTED 08/14/19 11/07/19 Metoprolol Tartrate [Lopressor] 25 mg PO BID 11/07/19 11/07/19 Previous Rx's Medication Instructions Recorded Apixaban [Eliquis] 5 mg PO DAILY #1 08/15/19 Allergies Allergy/AdvReac Type Severity Reaction Status Date / Time venom-honey bee Allergy Anaphylaxis Verified 11/07/19 20:53 [bee venom (honey bee)] Review of Systems ROS Statement: Those systems with pertinent positive or pertinent negative responses have been documented in the HPI. ROS Other: All systems not noted in ROS Statement are negative. EKG Findings - EKG Comments: EKG Findings:: EKG demonstrates A. fib with a rate of 88. QRS 82. QTC of 486. No acute ST segment elevations or depressions concerning for ischemic changes Past Medical History Past Medical History: Cancer, CVA/TIA, Dementia, Eye Disorder, GERD/Reflux, Hyperlipidemia, Hypertension, Osteoarthritis (OA), Renal Disease Additional Past Medical History / Comment(s): Hx. of GI bleed, Diverticulitis, thrombocytosis; donated his right kidney, skin cancer with removals from face, TIAs x 3, gout, chronic back pain, irregular heart beat at times, numbness/tin gling mostly in bilateral hands/ feet, rheumatic fever as child, 2016 multiple bee stings with allergic reaction, past fractures of L ankle, L arm, jaw and ribs. Syncope. History of Any Multi-Drug Resistant Organisms: None Reported Past Surgical History: Adenoidectomy, Hernia Repair, Joint Replacement, Orthopedic Surgery, Tonsillectomy Additional Past Surgical History / Comment(s): R kidney donor, kiesha hip replacement, L hand trigger finger,uvuloplasty, left carotid stent, bilateral inguinal hernia repair, deviated septum repair, colonoscopy, R cataract removal with lens; Pain procedures. Past Anesthesia/Blood Transfusion Reactions: No Reported Reaction Past Psychological History: No Psychological Hx Reported Smoking Status: Former smoker Past Alcohol Use History: Daily Past Drug Use History: None Reported - Past Family History Father Family Medical History: CVA/TIA Additional Family Medical History / Comment(s): Father at 80 from stroke Mother Family Medical History: No Reported History Additional Family Medical History / Comment(s): Mother at age 55 from polycystic kidney disease. Brother(s) Additional Family Medical History / Comment(s): Patient has 1 brother with multiple medical problems including diabetes. Sister(s) Family Medical History: Renal Disease Additional Family Medical History / Comment(s): Patient has one sister that at age 60 from kidney failure due to polycystic kidney disease. Daughter(s) Family Medical History: No Reported History Additional Family Medical History / Comment(s): Patient has one daughter with no major medical problems. Son(s) Additional Family Medical History / Comment(s): Patient has 5 sons. 2 at premature . One while skiing from a myocardial infarction at age 32. One son is alive with no major medical problems. General Exam Limitations: no limitations General appearance: alert, in no apparent distress Head exam: Present: atraumatic, normocephalic, normal inspection Eye exam: Present: normal appearance, PERRL, EOMI. Absent: scleral icterus, conjunctival injection, periorbital swelling ENT exam: Present: normal exam, mucous membranes moist Neck exam: Present: normal inspection. Absent: tenderness, meningismus, lymphadenopathy Respiratory exam: Present: normal lung sounds bilaterally. Absent: respiratory distress, wheezes, rales, rhonchi, stridor Cardiovascular Exam: Present: regular rate, normal rhythm, normal heart sounds. Absent: systolic murmur, diastolic murmur, rubs, gallop, clicks GI/Abdominal exam: Present: soft, normal bowel sounds. Absent: distended, tenderness, guarding, rebound, rigid Extremities exam: Present: normal inspection, full ROM, normal capillary refill. Absent: tenderness, pedal edema, joint swelling, calf tenderness Back exam: Present: normal inspection Neurological exam: Present: alert, oriented X3, CN II-XII intact Psychiatric exam: Present: normal affect, normal mood Skin exam: Present: warm, dry, intact, normal color. Absent: rash Course Vital Signs 11/07/19 11/07/19 11/07/19 18:43 20:37 21:30 Temperature 97.8 F Pulse Rate 89 99 105 H Pulse Rate [ Pulse Oximetery ] Respiratory 18 24 19 Rate Blood Pressure 133/70 135/89 128/77 Blood Pressure [Left Arm] O2 Sat by Pulse 97 98 98 Oximetry 11/07/19 11/07/19 21:51 22:37 Temperature 97.8 F 97.2 F L Pulse Rate 97 Pulse Rate [ 94 Pulse Oximetery ] Respiratory 22 19 Rate Blood Pressure 146/83 Blood Pressure 128/63 [Left Arm] O2 Sat by Pulse 96 97 Oximetry Chest Pain MDM - MDM Upon arrival patient is promptly placed into room 4. A thorough historyand physical exam was performed. Patient is placed on continuous pulse ox and cardiac monitoring. A 12-lead EKG was performed. Patient is in A. fib however it is a controlled rate. Laboratory studies were conducted. Hemoglobin low at 8.7. Platelets 1369. BNP elevated at 9960. Chest x-ray does demonstrate a right lower lobe pneumonia and right pleural effusion. Patient is covered with a dose of antibiotics as he is reporting a cough. Vital signs have remained stable. Patient oxygenating 98% without increased work of breathing. The patient is given 40 mg of Lasix for his lower extremity edema and pleural effusion. Recommend hospital admission orders trend his troponins. I will consult Dr. Valdes for his thrombocytosis. Patient did agree to this. Discussed case with Dr. davis her who accepted admission for the patient. Patient was transferred to floor in stable fashion Disposition Clinical Impression: Chest pain, Shortness of breath, Afib, CAP (community acquired pneumonia), Thrombocytosis, Pleural effusion Disposition: ADMITTED IP TO THIS HOSP Condition: Stable Is patient prescribed a controlled substance at d/c from ED?: No Time of Disposition: 21:35
[2019-11-07] MEDS ORDERED: NALOXONE 0.4 MG/ML 1 ML VIAL IV PRN (21:35)
[2019-11-07] MEDS: FUROSEMIDE 10 MG/ML 4 ML VIAL IV SCH (22:15)
[2019-11-07] MEDS: APIXABAN 5 MG TAB PO SCH (22:28)
[2019-11-08 03:05] LABS: Calcium 8.7 mg/dL (8.4-10.2); Potassium 4.8 mmol/L (3.5-5.1)
[2019-11-08 03:07] LABS: Anisocytosis Slight; HCT 27.7 % (39.0-53.0); HGB 8.5 gm/dL (13.0-17.5); Hypochromasia Marked; MCHC 30.8 g/dL (31.0-37.0); MCV 136.6 fL (80.0-100.0); Mean Platelet Volume 8.2; Poikilocytosis Moderate; RBC 2.03 m/uL (4.30-5.90); RDW 19.2 % (11.5-15.5)
[2019-11-08 03:10] LABS: Macrocytosis Marked; Platelet Count 1289 k/uL (150-450)
[2019-11-08 04:08] LABS: Large Platelets Present; Polychromasia Present
[2019-11-08 04:12] LABS: Band Neutrophils % 6 %; Lymphocytes # (M) 1.31 k/uL (1.0-4.8); Metamyelocytes % 3 %; Monocytes # (M) 0.91 k/uL (0-1.0); Myelocytes % 1 %; Neutrophils % (M) 66 %; Nucleated Red Blood Cells 5 /100 WBC (0-0); Total Cells Counted 200; WBC 10.1 k/uL (3.8-10.6)
[2019-11-08] MEDS: PANTOPRAZOLE 40 MG TABLET PO SCH (06:44)
[2019-11-08] MEDS: hydrALAZINE HCL 25 MG TAB PO SCH ×3 (06:44→16:46)
[2019-11-08] MEDS: METOPROLOL TARTRATE 25 MG TAB PO SCH ×2 (06:44→20:08)
[2019-11-08] MEDS: APIXABAN 5 MG TAB PO SCH (08:42)
[2019-11-08] MEDS: ATORVASTATIN 20 MG TAB PO SCH (08:42)
[2019-11-08] MEDS: GABAPENTIN 300 MG CAP PO SCH ×2 (08:42→20:08)
[2019-11-08] MEDS: RIVASTIGMINE 9.5MG/24HR PATCH TRANSDERM SCH (08:42)
[2019-11-08] MEDS: allopurinoL 300 MG TAB PO SCH (08:42)
[2019-11-08] MEDS: FUROSEMIDE 10 MG/ML 4 ML VIAL IV SCH ×2 (08:42→20:08)
[2019-11-08] MEDS ORDERED: ASPIRIN 81 MG PO SCH (09:00)
--- NOTE | 2019-11-08 14:13 | P.CNPUL ---
History of Present Illness Consult date: 11/08/19 Requesting physician: Laurita Sandra Reason for consult: dyspnea, abnormal CXR/CT Chief complaint: Shortness of breath, chest pain History of present illness: This is a very pleasant 83-year-old gentleman who follows with Dr. Sandra as his primary care provider. He has a history of hypertension, CVA/TIA, gastroesophageal reflux disease, hyperlipidemia, osteoarthritis, GI bleed with diverticulitis, gout, chronic back pain, rheumatic fever as a child, carotid stenosis with left carotid stent placement. The patient is a lifelong nonsmoker. He is seen the patient here back in May 2019 where he was found to have bilateral pulmonary emboli more so on the right and right-sided chest discomfort secondary to multiple right-sided rib fractures from falling. The patient is on Eliquis at 5 mg daily in the outpatient setting. He was brought in to the emergency room yesterday by his after she had noticed a rather acute onset of heavy breathing and shortness of breath. The patient does have dementia and he himself is a poor historian. Chest x-ray revealed evidence of a right lower lobe infiltrate/effusion. EKG revealed atrial fibrillation with a controlled ventricular response. White count 10.1. Hemoglobin 8.5. Platelet count 1289. Marketed macrocytosis. D-dimer 0.62. Sodium 137. Potassium 4.8. Creatinine 1.53. Troponins negative 3. ProBNP 9960. He's been initiated on Lasix 40 mg IV every 12 hours. Eliquis 5 mg daily. Review of Systems REVIEW OF SYSTEMS: CONSTITUTIONAL: Denies any recent significant weight loss or weight gain. EYES: Denies change in vision. EARS, NOSE, MOUTH, THROAT: Denies headaches, denies sore throat. CARDIOVASCULAR: Positive for chest pain, no palpitations or syncopal episodes. RESPIRATORY: Positive for shortness of breath, cough, congestion no hemoptysis. GASTROINTESTINAL: Denies change in appetite, denies abdominal pain GENITOURINARY: Denies hematuria, denies infections. MUSKULOSKELETAL: Denies pain, denies swelling. INTEGUMENTARY: Denies rash, denies eczema. NEUROLOGICAL: Denies recent memory loss, no recent seizure activity. PSYCHIATRIC: Denies anxiety, denies depression. HEMATOLOGIC/LYMPHATIC: Denies anemia, denies enlarged lymph nodes. Past Medical History Past Medical History: Cancer, CVA/TIA, Dementia, Eye Disorder, GERD/Reflux, Hyperlipidemia, Hypertension, Osteoarthritis (OA), Renal Disease Additional Past Medical History / Comment(s): Hx. 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 Syncope. History of Any Multi-Drug Resistant Organisms: None Reported Past Surgical History: Adenoidectomy, Hernia Repair, Joint Replacement, Orthopedic Surgery, Tonsillectomy Additional Past Surgical History / Comment(s): R kidney donor, kiesha hip replace ment, L hand trigger finger,uvuloplasty, left carotid stent, bilateral inguinal hernia repair, deviated septum repair, colonoscopy, R cataract removal with lens; Pain procedures. Past Anesthesia/Blood Transfusion Reactions: No Reported Reaction Past Psychological History: No Psychological Hx Reported Smoking Status: Former smoker Past Alcohol Use History: Daily Past Drug Use History: None Reported - Past Family History Father Family Medical History: CVA/TIA Additional Family Medical History / Comment(s): Father at 80 from stroke Mother Family Medical History: No Reported History Additional Family Medical History / Comment(s): Mother at age 55 from polycystic kidney disease. Brother(s) Additional Family Medical History / Comment(s): Patient has 1 brother with multiple medical problems including diabetes. Sister(s) Family Medical History: Renal Disease Additional Family Medical History / Comment(s): Patient has one sister that at age 60 from kidney failure due to polycystic kidney disease. Daughter(s) Family Medical History: No Reported History Additional Family Medical History / Comment(s): Patient has one daughter with no major medical problems. Son(s) Additional Family Medical History / Comment(s): Patient has 5 sons. 2 at premature . One while skiing from a myocardial infarction at age 32. One son is alive with no major medical problems. Medications and Allergies Home Medications Medication Instructions Recorded Confirmed Type allopurinoL [Zyloprim] 300 mg PO DAILY 09/01/13 11/07/19 History hydrALAZINE HCL [Apresoline] 25 mg PO AC-TID 09/01/13 11/07/19 History EPINEPHrine (Auto Inject) [Epipen] 0.3 mg IM ONCE PRN 01/06/17 11/07/19 History Gabapentin [Neurontin] 300 mg PO BID 06/13/17 11/07/19 History Pantoprazole Sodium [Protonix] 40 mg PO AC-BRKFST 08/04/17 11/07/19 History Rivastigmine 9.5MG/24Hr Patch 1 patch TRANSDERM Q24HR 05/29/19 11/07/19 History [Exelon 9.5MG/24Hr Patch] Aspirin EC [Ecotrin Low Dose] 81 mg PO DAILY 08/14/19 11/07/19 History Atorvastatin Calcium [Lipitor] 20 mg PO DAILY 08/14/19 11/07/19 History Hydroxyurea 2,000 mg PO DIRECTED 08/14/19 11/07/19 History Apixaban [Eliquis] 5 mg PO DAILY #1 08/15/19 11/07/19 Rx Metoprolol Tartrate [Lopressor] 25 mg PO BID 11/07/19 11/07/19 History Allergies Allergy/AdvReac Type Severity Reaction Status Date / Time venom-honey bee Allergy Anaphylaxis Verified 11/07/19 20:53 [bee venom (honey bee)] Physical Exam Vitals: Vital Signs Temp Pulse Pulse Resp BP BP Pulse Ox 11/08/19 12:00 71 16 116/58 95 11/08/19 11:13 16 11/08/19 08:00 97.5 F L 85 16 100/48 96 11/08/19 04:00 102 H 18 127/66 100 11/08/19 03:36 94 22 11/08/19 00:00 94 22 128/63 96 11/07/19 22:37 97.2 F L 97 19 146/83 97 11/07/19 21:51 97.8 F 94 22 128/63 96 11/07/19 21:30 105 H 19 128/77 98 11/07/19 20:37 99 24 135/89 98 11/07/19 18:43 97.8 F 89 18 133/70 97 Intake and Output 11/07/19 11/08/19 11/08/19 22:59 06:59 14:59 Intake Total 780 Output Total 500 20 Balance -500 760 Intake: Oral 780 Output: Urine 500 20 Other: Voiding Method Toilet Toilet Urinal Urinal # Voids 1 1 Weight 95.254 kg 97.3 kg GENERAL EXAM: Alert, active, pleasant 83-year-old male patient, disoriented to current situation, on 2 L nasal cannula, comfortable in no apparent distress. HEAD: Normocephalic. EYES: Normal reaction of pupils, equal size. NOSE: Clear with pink turbinates. THROAT: No erythema or exudates. NECK: No masses, no JVD. CHEST: No chest wall deformity. LUNGS: Equal air entry with crackles in the right posterior base, diminished CVS: S1 and S2 normal with no audible murmur, irregular rhythm. ABDOMEN: No hepatosplenomegaly, normal bowel sounds, no guarding or rigidity. SPINE: No scoliosis or deformity SKIN: No rashes CENTRAL NERVOUS SYSTEM: No focal deficits, tone is normal in all 4 extremities. EXTREMITIES: There is no peripheral edema. No clubbing, no cyanosis. Peripheral pulses are intact. Results - Laboratory Findings CBC and BMP: 11/08/19 02:35 11/08/19 02:35 PT/INR, D-dimer PT 12.5 sec (9.0-12.0) H 11/07/19 18:59 INR 1.2 (<1.2) H 11/07/19 18:59 D-Dimer 0.62 mg/L FEU (<0.60) H 11/08/19 12:49 Abnormal lab findings: Abnormal Labs 11/07/19 11/07/19 11/07/19 18:59 18:59 18:59 RBC 2.19 L Hgb 8.7 L Hct 29.1 L MCV 133.0 H D MCH 39.8 H MCHC 29.9 L RDW 18.9 H Plt Count 1369 H* D Lymphocytes # (Manual) 0.80 L Basophils # (Manual) 0.30 H Metamyelocytes # (Man) 0.60 H Myelocytes # (Manual) 0.20 H Nucleated RBCs 2 H Macrocytosis Marked A PT 12.5 H INR 1.2 H D-Dimer Potassium 5.3 H Chloride 108 H BUN 23 H Creatinine 1.65 H Glucose 106 H Total Protein 5.7 L 11/08/19 11/08/19 11/08/19 02:35 02:35 12:49 RBC 2.03 L Hgb 8.5 L Hct 27.7 L MCV 136.6 H MCH 42.0 H MCHC 30.8 L RDW 19.2 H Plt Count 1289 H* Lymphocytes # (Manual) Basophils # (Manual) Metamyelocytes # (Man) 0.30 H Myelocytes # (Manual) 0.10 H Nucleated RBCs 5 H Macrocytosis Marked A PT INR D-Dimer 0.62 H Potassium Chloride 108 H BUN 24 H Creatinine 1.53 H Glucose 113 H Total Protein - Diagnostic Findings Chest x-ray: image reviewed Assessment and Plan Assessment: 1 Acute hypoxic respiratory failure secondary to right-sided pleural effusion, suspect diastolic congestive heart failure, rule out recurrent PE/DVT 2 Right-sided chest discomfort with a history of multiple right-sided rib fractures from recent falls 3 History of previous multilobar PE in May 2019, was on Eliquis 5 mg daily in the outpatient setting 4 Acute renal failure current creatinine 1.53 5 Essential thrombocytosis 6 Dementia 7 Hypertension 8 Hyperlipidemia 9 History of GI bleed 10 History of diverticulitis 11 History of donated right kidney 12 History of gout 13 History of chronic back pain 14 Carotid stenosis with previous left carotid stent 15 Lifelong nonsmoker Plan: The patient was seen and evaluated by Dr. Platt We'll obtain the d-dimer, VQ scan, Dopplers of the lower extremities Continue Eliquis Titrate down the FiO2 as tolerated Continue IV diuretics We will continue to follow and make further recommendations based on his clini liane status I, the cosigning physician, performed a history & physical examination of the patient. Lungs sounds crackles in the right posterior base, diminished. Maintaining good O2 saturations in the 90s on 2 L/m per nasal. I discussed the assessment and plan of care with my nurse practitioner, Nasima Hadley. I attest to the above note as dictated by her. Time with Patient: Greater than 30
--- NOTE | 2019-11-08 14:26 | P.CONS ---
History of Present Illness - Reason for Consult Consult date: 11/08/19 Essential thrombocytosis Requesting physician: Laurita Sandra - Chief Complaint SOB - History of Present Illness Mr. Esqueda is a very pleasant 83-year-old gentleman, patient of Dr. Moreno, who is here for acute onset shortness of breath found to have a pneumonia. While resting at home he had sudden onset chest pain and shortness of breath. He presented to the ER where he described it as a gas sensation. Cardiac workup in the ER with negative troponin however significantly elevated BNP at 9900. He had AK I with a creatinine of 1.6 from a baseline of 1.0. INR was elevated at 1.2, however he is on outlook was for atrial fibrillation. PTT was normal. CBC revealed WBC of 10, hemoglobin 8.7, MCV 133, platelet 1369. He does have underlying essential thrombocytosis, for which she follows with Dr. Moreno for, taking Hydrea 2000 mg per day. He was recently seen on 10/23/19 for follow-up and was having severe weakness, loss of stamina, and fatigue with multiple falls and possible progressive dementia. CBC revealed leukopenia and anemia with a platelet count of 550 at that time. He had not been seen since 2018 prior to that and at that point was on 1500 mg of Hydrea per day. He was felt that his symptoms are due to myelosuppression from Hydrea and he was advised to stop this and follow-up in a 1-2 weeks for reevaluation. Bone marrow biopsy was planned if his condition and cytopenias did not improve. It does not appear that he had repeat CBC or clinic follow-up as planned. Further workup in the ER including chest x-ray revealed right lower lobe pneumonia with right pleural effusion which was new. He started on antibiotics and admitted for further management of pneumonia. Review of Systems All systems: negative Constitutional: Reports as per HPI Past Medical History Past Medical History: Cancer, CVA/TIA, Dementia, Eye Disorder, GERD/Reflux, Hyperlipidemia, Hypertension, Osteoarthritis (OA), Renal Disease Additional Past Medical History / Comment(s): Hx. 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 Syncope. History of Any Multi-Drug Resistant Organisms: None Reported Past Surgical History: Adenoidectomy, Hernia Repair, Joint Replacement, Orthoped ic Surgery, Tonsillectomy Additional Past Surgical History / Comment(s): R kidney donor, kiesha hip replacement, L hand trigger finger,uvuloplasty, left carotid stent, bilateral inguinal hernia repair, deviated septum repair, colonoscopy, R cataract removal with lens; Pain procedures. Past Anesthesia/Blood Transfusion Reactions: No Reported Reaction Past Psychological History: No Psychological Hx Reported Smoking Status: Former smoker Past Alcohol Use History: Daily Past Drug Use History: None Reported - Past Family History Father Family Medical History: CVA/TIA Additional Family Medical History / Comment(s): Father at 80 from stroke Mother Family Medical History: No Reported History Additional Family Medical History / Comment(s): Mother at age 55 from polycystic kidney disease. Brother(s) Additional Family Medical History / Comment(s): Patient has 1 brother with multiple medical problems including diabetes. Sister(s) Family Medical History: Renal Disease Additional Family Medical History / Comment(s): Patient has one sister that at age 60 from kidney failure due to polycystic kidney disease. Daughter(s) Family Medical History: No Reported History Additional Family Medical History / Comment(s): Patient has one daughter with no major medical problems. Son(s) Additional Family Medical History / Comment(s): Patient has 5 sons. 2 at premature . One while skiing from a myocardial infarction at age 32. One son is alive with no major medical problems. Medications and Allergies Home Medications Medication Instructions Recorded Confirmed Type allopurinoL [Zyloprim] 300 mg PO DAILY 09/01/13 11/07/19 History hydrALAZINE HCL [Apresoline] 25 mg PO AC-TID 09/01/13 11/07/19 History EPINEPHrine (Auto Inject) [Epipen] 0.3 mg IM ONCE PRN 01/06/17 11/07/19 History Gabapentin [Neurontin] 300 mg PO BID 06/13/17 11/07/19 History Pantoprazole Sodium [Protonix] 40 mg PO AC-BRKFST 08/04/17 11/07/19 History Rivastigmine 9.5MG/24Hr Patch 1 patch TRANSDERM Q24HR 05/29/19 11/07/19 History [Exelon 9.5MG/24Hr Patch] Aspirin EC [Ecotrin Low Dose] 81 mg PO DAILY 08/14/19 11/07/19 History Atorvastatin Calcium [Lipitor] 20 mg PO DAILY 08/14/19 11/07/19 History Hydroxyurea 2,000 mg PO DIRECTED 08/14/19 11/07/19 History Apixaban [Eliquis] 5 mg PO DAILY #1 08/15/19 11/07/19 Rx Metoprolol Tartrate [Lopressor] 25 mg PO BID 11/07/19 11/07/19 History Allergies Allergy/AdvReac Type Severity Reaction Status Date / Time venom-honey bee Allergy Anaphylaxis Verified 11/07/19 20:53 [bee venom (honey bee)] Physical Exam Vitals: Vital Signs Temp Pulse Pulse Resp BP BP Pulse Ox 11/08/19 12:00 71 16 116/58 95 11/08/19 11:13 16 11/08/19 08:00 97.5 F L 85 16 100/48 96 11/08/19 04:00 102 H 18 127/66 100 11/08/19 03:36 94 22 11/08/19 00:00 94 22 128/63 96 11/07/19 22:37 97.2 F L 97 19 146/83 97 11/07/19 21:51 97.8 F 94 22 128/63 96 11/07/19 21:30 105 H 19 128/77 98 11/07/19 20:37 99 24 135/89 98 11/07/19 18:43 97.8 F 89 18 133/70 97 Intake and Output 11/07/19 11/08/19 11/08/19 22:59 06:59 14:59 Intake Total 780 Output Total 500 20 Balance -500 760 Intake: Oral 780 Output: Urine 500 20 Other: Voiding Method Toilet Toilet Urinal Urinal # Voids 1 1 Weight 95.254 kg 97.3 kg Pt not seen today as he was out of his room for testing despite many attempts to see him. Our team will evaluate and examine him tomorrow. Results CBC & Chem 7: 11/08/19 02:35 11/08/19 02:35 Labs: Abnormal Lab Results - Last 24 Hours (Table) 11/07/19 11/07/19 11/07/19 Range/Units 18:59 18:59 18:59 RBC 2.19 L (4.30-5.90) m/uL Hgb 8.7 L (13.0-17.5) gm/dL Hct 29.1 L (39.0-53.0) % MCV 133.0 H D (80.0-100.0) fL MCH 39.8 H (25.0-35.0) pg MCHC 29.9 L (31.0-37.0) g/dL RDW 18.9 H (11.5-15.5) % Plt Count 1369 H* D (150-450) k/uL Lymphocytes # (Manual) 0.80 L (1.0-4.8) k/uL Basophils # (Manual) 0.30 H (0-0.2) k/uL Metamyelocytes # (Man) 0.60 H (0) k/uL Myelocytes # (Manual) 0.20 H (0) k/uL Nucleated RBCs 2 H (0-0) /100 WBC Macrocytosis Marked A PT 12.5 H (9.0-12.0) sec INR 1.2 H (<1.2) Potassium 5.3 H (3.5-5.1) mmol/L Chloride 108 H (98-107) mmol/L BUN 23 H (9-20) mg/dL Creatinine 1.65 H (0.66-1.25) mg/dL Glucose 106 H (74-99) mg/dL Total Protein 5.7 L (6.3-8.2) g/dL 11/08/19 11/08/19 Range/Units 02:35 02:35 RBC 2.03 L (4.30-5.90) m/uL Hgb 8.5 L (13.0-17.5) gm/dL Hct 27.7 L (39.0-53.0) % MCV 136.6 H (80.0-100.0) fL MCH 42.0 H (25.0-35.0) pg MCHC 30.8 L (31.0-37.0) g/dL RDW 19.2 H (11.5-15.5) % Plt Count 1289 H* (150-450) k/uL Lymphocytes # (Manual) (1.0-4.8) k/uL Basophils # (Manual) (0-0.2) k/uL Metamyelocytes # (Man) 0.30 H (0) k/uL Myelocytes # (Manual) 0.10 H (0) k/uL Nucleated RBCs 5 H (0-0) /100 WBC Macrocytosis Marked A PT (9.0-12.0) sec INR (<1.2) Potassium (3.5-5.1) mmol/L Chloride 108 H (98-107) mmol/L BUN 24 H (9-20) mg/dL Creatinine 1.53 H (0.66-1.25) mg/dL Glucose 113 H (74-99) mg/dL Total Protein (6.3-8.2) g/dL Chest x-ray: report reviewed Assessment and Plan Assessment: 1. RLL pneumonia 2. Essential thrombocytosis 3. Macrocytic anemia 4. PETER 5. Prior stroke 6. CAD 7. HTN Plan: Mr. Esqueda is a very pleasant 83-year-old gentleman with a history of essential thrombocytosis, check 2 positive, was on Hydrea up until 10/23/19, who is here for acute onset chest pain and shortness of breath due to a right lower lobe pneumonia. He has been following with Dr. Moreno since 2011. He has been on Hydrea up until recently. He was taking 1500 mg per day and last follow-up prior to most recent visit was from 11/2018. His subsequent follow-up was from 10/23/19 at which point he was having fatigue, leukopenia, anemia, and was taken Hydrea 2000 mg per day. He was advised that he hold Hydrea and reevaluate his condition and his cytopenias in 1-2 weeks however he failed to follow-up. Comes in now with a pneumonia and his white count is 10, hemoglobin 8.7, MCV 133, and platelets are 1300. His thrombocytosis is being exaggerated due to underlying infection. Unclear if he has been transforming as well to an acute leukemia. We will check B12, folate, thyroid function, and hemolysis workup. Continue to hold Hydrea for now especially in the setting of infection. If his platelets improved with antibiotics we'll continue to monitor him off of Hydrea. He might need a bone marrow biopsy in the near future as well. Continue aspirin and all questions which she is on for his underlying atrial fibrillation as well as baby aspirin for his ET. Consider half a baby aspirin twice a day to ensure he has appropriate long-lasting antiplatelet therapy with his underlying ET. Unfortunately, multiple attempts at seeing pt were unsuccessful over the span of 2 hours as pt out of his room for testing. I did speak with the in detail however. Someone from our team with come by to see and examine the pt tomorrow and follow up on his care. Discussed with patient's family () at bedside and she's agreeable to the plan. All of their questions were answered.
--- NOTE | 2019-11-08 14:37 | NM ---
EXAMINATION TYPE: NM pul vent and perfuse DATE OF EXAM: 11/08/2019 COMPARISON: NONE HISTORY: Short of breath TECHNIQUE: Utilizing inhalation of 37.7 mCi Tc 99m DTPA aerosol and intravenous injection of 4.9 mCi of Tc 99m MAA, ventilation and perfusion images are acquired post injection in multiple projections. FINDINGS: There are patchy areas of decreased ventilation throughout the periphery of both lungs. There is smal l areas of subsegmental perfusion defect in the periphery of both lungs. There is no segmental type d efect. Chest x-ray yesterday shows no pulmonary consolidation. IMPRESSION: There is evidence for moderate bilateral airway disease. No ventilation/perfusion mismatch. There is low probability of pulmonary embolism.
--- NOTE | 2019-11-08 15:31 | P.HPIM ---
History of Present Illness H&P Date: 11/08/19 Chief Complaint: Right-sided chest pain and shortness breath. This is an 83-year-old male one of my patient with a previous medical history significant for hypertension and hypertensive cardio vascular disease, hyperlipidemia, chronic kidney disease stage II, history of essential thrombocytosis, history of severe spondylosis of the cervical spine, history of proximal atrial fib relation, was recently hospitalized in August 2019 where he was found to have multilobar pulmonary emboli and he was started on Eliquis 5 mg orally twice every day, and it was doubtful for whether or not to keep the patient on anticoagulation because of recurrent falls and increased risk of bleeding, eventually the decision was made to keep the patient on outpatient this point in time, he was seen in the office 3 weeks when he was found to have a significant macrocytosis with MCV of 120 with significant suppression of the bone marrow due to the use of Hydrea with leukopenia as well as from cytopenia and he was not sure the patient was transformed to acute leukemia he was recomm ended for the patient to stay off Hydrea and to follow-up with Dr. Moreno , his oncologist as an outpatient which she did and he was kept off Hydrea and he was supposed to go back in 2 weeks for repeat CBC and possible bone marrow biopsy for possible bone marrow disease, patient was in his usual state of health about yesterday when he was sitting in his chair when he suddenly developed to have a right-sided chest pain associated with significant shortness breath of increased swelling in both lower extremities he felt like a gas bubble in the stomach he did not have any nausea or vomiting patient ended up coming to the ER at [facility] where he had a chest x-ray that showed right-sided pleural effusion with right pulmonary infiltrate, also his EKG showed atrial fibrillation with controlled rate with the acute kidney injury on top of chronic kidney disease, he was started on IV anabiotic was admitted to the hospital with pulmonary consultation as well as hematology oncology consultation as well. Patient was seen bipolar he was sent down for a VQ scan for evaluation appropria te was which came back low probability for pulmonary embolus him however it did show that the patient has pneumonia, patient will be kept on Eliquis we will decrease the dose to 2.5 mg orally twice every day and he would be kept on aspirin 81 mg orally twice every day due to his essential thrombocytosis to ensure antiplatelet activity. Review of Systems Constitutional: Reports chronic pain, Reports fatigue, Reports weakness, Denies anorexia Eyes: bilateral blurred vision, bilateral decreased vision Ears: bilateral: decreased hearing Ears, nose, mouth and throat: Denies dysphagia, Denies neck lump, Denies sore throat Cardiovascular: Reports chest pain, Reports decreased exercise tolerance, Reports dyspnea on exertion, Reports leg edema, Reports orthopnea, Reports rapid heart beat, Reports shortness of breath, Denies syncope Respiratory: Reports congestion, Reports cough, Reports cough with sputum, Reports dyspnea, Reports pain on inspiration, Reports respiratory infections, Reports wheezing, Denies excessive sputum, Denies sleep apnea, Denies snoring Gastrointestinal: Reports loss of appetite, Denies abdominal pain, Denies bloating, Denies BRBPR, Denies heartburn, Denies lactose intolerance, Denies melena, Denies nausea, Denies vomiting Genitourinary: Reports incontinence, Reports nocturia, Denies dysuria Musculoskeletal: Reports frequent falls, Reports gait dysfunction, Reports morning stiffness, Reports muscle weakness, Reports myalgias, Reports neck pain Musculoskeletal: bilateral: ankle swelling, foot swelling, absent: ankle pain, ankle stiffness, elbow pain, elbow stiffness, elbow swelling, foot pain, foot stiffness, hand pain, hand stiffness, hand swelling, hip pain, hip stiffness, hip swelling, knee pain, knee stiffness, knee swelling, shoulder pain, shoulder stiffness, shoulder swelling, wrist pain, wrist stiffness, wrist swelling Integumentary: Reports unusual bruising Neurological: Reports confusion, Reports memory loss, Reports sensory deficit, Reports weakness, Reports visual changes Psychiatric: Reports anxiety, Reports depression, Denies paranoia, Denies sadness/tearfulness, Denies sleep disturbances, Denies suicidal ideation Endocrine: Denies fatigue, Denies weight change Past Medical History Past Medical History: Cancer, CVA/TIA, Dementia, Eye Disorder, GERD/Reflux, Hyperlipidemia, Hypertension, Osteoarthritis (OA), Renal Disease Additional Past Medical History / Comment(s): Hx. 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 Syncope. History of Any Multi-Drug Resistant Organisms: None Reported Past Surgical History: Adenoidectomy, Hernia Repair, Joint Replacement, Orthopedic Surgery, Tonsillectomy Additional Past Surgical History / Comment(s): R kidney donor, kiesha hip replacement, L hand trigger finger,uvuloplasty, left carotid stent, bilateral inguinal hernia repair, deviated septum repair, colonoscopy, R cataract removal with lens; Pain procedures. Past Anesthesia/Blood Transfusion Reactions: No Reported Reaction Past Psychological History: No Psychological Hx Reported Smoking Status: Former smoker Past Alcohol Use History: Daily Past Drug Use History: None Reported - Past Family History Father Family Medical History: CVA/TIA Additional Family Medical History / Comment(s): Father at 80 from stroke Mother Family Medical History: No Reported History Additional Family Medical History / Comment(s): Mother at age 55 from polycystic kidney disease. Brother(s) Additional Family Medical History / Comment(s): Patient has 1 brother with multiple medical problems including diabetes. Sister(s) Family Medical History: Renal Disease Additional Family Medical History / Comment(s): Patient has one sister that at age 60 from kidney failure due to polycystic kidney disease. Daughter(s) Family Medical History: No Reported History Additional Family Medical History / Comment(s): Patient has one daughter with no major medical problems. Son(s) Additional Family Medical History / Comment(s): Patient has 5 sons. 2 at premature . One while skiing from a myocardial infarction at age 32. One son is alive with no major medical problems. Medications and Allergies Home Medications Medication Instructions Recorded Confirmed Type allopurinoL [Zyloprim] 300 mg PO DAILY 09/01/13 11/07/19 History hydrALAZINE HCL [Apresoline] 25 mg PO AC-TID 09/01/13 11/07/19 History EPINEPHrine (Auto Inject) [Epipen] 0.3 mg IM ONCE PRN 01/06/17 11/07/19 History Gabapentin [Neurontin] 300 mg PO BID 06/13/17 11/07/19 History Pantoprazole Sodium [Protonix] 40 mg PO AC-BRKFST 08/04/17 11/07/19 History Rivastigmine 9.5MG/24Hr Patch 1 patch TRANSDERM Q24HR 05/29/19 11/07/19 History [Exelon 9.5MG/24Hr Patch] Aspirin EC [Ecotrin Low Dose] 81 mg PO DAILY 08/14/19 11/07/19 History Atorvastatin Calcium [Lipitor] 20 mg PO DAILY 08/14/19 11/07/19 History Hydroxyurea 2,000 mg PO DIRECTED 08/14/19 11/07/19 History Apixaban [Eliquis] 5 mg PO DAILY #1 08/15/19 11/07/19 Rx Metoprolol Tartrate [Lopressor] 25 mg PO BID 11/07/19 11/07/19 History Allergies Allergy/AdvReac Type Severity Reaction Status Date / Time venom-honey bee Allergy Anaphylaxis Verified 11/07/19 20:53 [bee venom (honey bee)] Physical Exam Vitals: Vital Signs Temp Pulse Pulse Resp BP BP Pulse Ox 11/08/19 12:00 71 16 116/58 95 11/08/19 11:13 16 11/08/19 08:00 97.5 F L 85 16 100/48 96 11/08/19 04:00 102 H 18 127/66 100 11/08/19 03:36 94 22 11/08/19 00:00 94 22 128/63 96 11/07/19 22:37 97.2 F L 97 19 146/83 97 11/07/19 21:51 97.8 F 94 22 128/63 96 11/07/19 21:30 105 H 19 128/77 98 11/07/19 20:37 99 24 135/89 98 11/07/19 18:43 97.8 F 89 18 133/70 97 Intake and Output 11/07/19 11/08/19 11/08/19 22:59 06:59 14:59 Intake Total 780 Output Total 500 20 Balance -500 760 Intake: Oral 780 Output: Urine 500 20 Other: Voiding Method Toilet Toilet Urinal Urinal # Voids 1 1 Weight 95.254 kg 97.3 kg Physical examination: HEENT: Head is atraumatic, normocephalic, pupils were equal round reactive to light and accommodation, extraocular muscle movement were intact, sclera nonicteric, conjunctivae were., Mucous membranes of the mouth are somewhat dry. Neck: Supple, no JVD, decreased carotid upstroke bilaterally. Chest: Decreased breath sounds at the bases, decreased tactile fremitus at the right lower third with positive egophony, no chest wall tenderness no intercostal retractions. Heart: First heart sound is depressed, second heart sound is normal, irregularly irregular, there is systolic murmur 2/6 located in the left sternal border. Abdomen: Soft, nontender, nondistended, positive bowel sounds. Extremities: +2 edema no calf tenderness, dorsalis pedis +1 bilaterally. Neurologic exoneration: Patient is awake alert and oriented 2, cranial nerves 3-12 appear grossly intact, muscle power were 4 out of 5 in upper extremities and 3 out of 5 in bilateral lower extremities Results CBC & Chem 7: 11/08/19 02:35 11/08/19 02:35 Labs: Abnormal Lab Results - Last 24 Hours (Table) 11/07/19 11/07/19 11/07/19 Range/Units 18:59 18:59 18:59 RBC 2.19 L (4.30-5.90) m/uL Hgb 8.7 L (13.0-17.5) gm/dL Hct 29.1 L (39.0-53.0) % MCV 133.0 H D (80.0-100.0) fL MCH 39.8 H (25.0-35.0) pg MCHC 29.9 L (31.0-37.0) g/dL RDW 18.9 H (11.5-15.5) % Plt Count 1369 H* D (150-450) k/uL Lymphocytes # (Manual) 0.80 L (1.0-4.8) k/uL Basophils # (Manual) 0.30 H (0-0.2) k/uL Metamyelocytes # (Man) 0.60 H (0) k/uL Myelocytes # (Manual) 0.20 H (0) k/uL Nucleated RBCs 2 H (0-0) /100 WBC Macrocytosis Marked A PT 12.5 H (9.0-12.0) sec INR 1.2 H (<1.2) Potassium 5.3 H (3.5-5.1) mmol/L Chloride 108 H (98-107) mmol/L BUN 23 H (9-20) mg/dL Creatinine 1.65 H (0.66-1.25) mg/dL Glucose 106 H (74-99) mg/dL Total Protein 5.7 L (6.3-8.2) g/dL 11/08/19 11/08/19 Range/Units 02:35 02:35 RBC 2.03 L (4.30-5.90) m/uL Hgb 8.5 L (13.0-17.5) gm/dL Hct 27.7 L (39.0-53.0) % MCV 136.6 H (80.0-100.0) fL MCH 42.0 H (25.0-35.0) pg MCHC 30.8 L (31.0-37.0) g/dL RDW 19.2 H (11.5-15.5) % Plt Count 1289 H* (150-450) k/uL Lymphocytes # (Manual) (1.0-4.8) k/uL Basophils # (Manual) (0-0.2) k/uL Metamyelocytes # (Man) 0.30 H (0) k/uL Myelocytes # (Manual) 0.10 H (0) k/uL Nucleated RBCs 5 H (0-0) /100 WBC Macrocytosis Marked A PT (9.0-12.0) sec INR (<1.2) Potassium (3.5-5.1) mmol/L Chloride 108 H (98-107) mmol/L BUN 24 H (9-20) mg/dL Creatinine 1.53 H (0.66-1.25) mg/dL Glucose 113 H (74-99) mg/dL Total Protein (6.3-8.2) g/dL Thrombosis Risk Factor Assmnt - DVT/VTE Prophylaxis DVT/VTE Prophylaxis: Pharmacologic Prophylaxis ordered, Mechanical Prophylaxis ordered - Choose All That Apply Each Factor Represents 1 point: Swollen legs (current) Other Risk Factors: Yes Each Risk Factor Represents 3 Points: Age 75 years or older Thrombosis Risk Factor Assessment Total Risk Factor Score: 4 Thrombosis Risk Factor Assessment Level: Moderate Risk Assessment and Plan Assessment: Assessment and plan: 1. Acute hypoxemic respiratory failure secondary to right-sided pleural effusion with right lower lobe pneumonia as well as acute diastolic heart get lure. Continue patient on IV Lasix 40 mg IV push every 12 hours, continue patient on IV antibiotic with Levaquin 250 mg IV piggyback every 24 hours, continue oxygen support, continue nebulized treatment in the form of DuoNeb 3 mL 4 times every day, Pulmicort consultation appreciated. 2. Right lower lobe pneumonia with parapneumonic effusion. Continue Levaquin 250 mg IV piggyback every 24 hours, continue DuoNeb 3 mL nebulization 4 times every day, continue oxygen support. 3. Acute diastolic heart failure. Continue metoprolol 25 mg orally twice every day, continue Lasix 40 mg IV push every 12 hours. 4. History of multilobar pulmonary emboli. Patient underwent VQ scan that showed low probability for pulmonary embolism however the patient will need to be on anticoagulation due to his proximal atrial fibrillation. We'll change the dose to 2.5 mg orally twice every day. 5. Essential thrombocytosis. Patient was taken off Hydrea due to bone marrow suppression for the past week or so he is to restart baby aspirin 81 mg orally twice every day, patient will be seen in consultation by hematology oncology for further recommendation he may need to go for bone marrow biopsy, laboratory evaluation including hemolysis panel were ordered. 6. Hypertension and hypertensive cardiovascular disease. Continue metoprolol 25 mg orally twice every day and hydralazine 25 mg orally 3 times every day. 7. History of gout. Continue allopurinol 300 mg orally once every day. 8. Acute and chronic kidney disease stage II. His creatinine is back to baseline. 9. Paroxysmal atrial fibrillation. Continue metoprolol 25 mg orally twice every day, switch Eliquis to 2.5 mg orally twice every day. 10. Peripheral neuropathy. Continue gabapentin 300 mg orally twice every day. 11. Vascular dementia. Continue Rivastigmine patch 9.5 mg once every day. 12. Mixed hyperlipidemia. Continue Lipitor 20 mg orally once every day. 13. Spondylosis of the cervical spine. Continue gabapentin 300 mg orally twice every day. 14. Gait dysfunction with poor balance and recurrent falls. Physical therapy evaluation. 15. DVT prophylaxis. Continue patient on Eliquis 2.5 mg orally twice every day. 16. GI prophylaxis. Continue patient on Protonix 40 mg orally once every day. 17. Admit to inpatient. Estimate a length of stay 2 midnights. 18. Patient is full code.
[2019-11-08] MEDS: IPRATROPIUM-ALBUTEROL 3 ML NEB INHALATION SCH ×2 (15:34→18:49)
--- NOTE | 2019-11-08 16:03 | US ---
EXAMINATION TYPE: US venous doppler duplex LE DATE OF EXAM: 11/08/2019 3:42 PM COMPARISON: US 09/26/2017 CLINICAL HISTORY: . Swelling. Patient is currently on blood thinners SIDE PERFORMED: Bilateral TECHNIQUE: The lower extremity deep venous system is examined utilizing real time linear array sonog edward with graded compression, doppler sonography and color-flow sonography. VESSELS IMAGED: External Iliac Vein (EIV) Common Femoral Vein Deep Femoral Vein Greater Saphenous Vein * Femoral Vein Popliteal Vein Small Saphenous Vein * Proximal Calf Veins (* superficial vessels) Right Leg: Negative for DVT Within the right popliteal fossa, there is a cystic area visualized measuring 3.3 x 1.3 x 2.5 cm, pro bable Cardoza's cyst Left Leg: Negative for DVT IMPRESSION: No evidence of deep vein thrombosis in both legs. Right side popliteal cyst is demonstrat ed.
[2019-11-08] MEDS: LEVOFLOXACIN 250MG-D5W PMX 250 MG in DEXTROSE/WATER 1 50ML.BAG IVPB SCH (16:46)
[2019-11-08] MEDS: ASPIRIN 81 MG PO SCH (20:08)
[2019-11-08] MEDS: APIXABAN 2.5 MG TABLET PO SCH (20:08)
[2019-11-08 20:26] LABS: Glucose,Whole Blood 170 mg/dL (75-99)
[2019-11-09] MEDS: hydrALAZINE HCL 25 MG TAB PO SCH ×3 (06:37→17:28)
[2019-11-09] MEDS: PANTOPRAZOLE 40 MG TABLET PO SCH (06:37)
--- NOTE | 2019-11-09 08:25 | P.PN ---
Subjective Progress Note Date: 11/09/19 This is an 83-year-old male one of my patient with a previous medical history significant for hypertension and hypertensive cardio vascular disease, hyperlipidemia, chronic kidney disease stage II, history of essential thrombocytosis, history of severe spondylosis of the cervical spine, history of proximal atrial fib relation, was recently hospitalized in August 2019 where he was found to have multilobar pulmonary emboli and he was started on Eliquis 5 mg orally twice every day, and it was doubtful for whether or not to keep the patient on anticoagulation because of recurrent falls and increased risk of bleeding, eventually the decision was made to keep the patient on outpatient this point in time, he was seen in the office 3 weeks when he was found to have a significant macrocytosis with MCV of 120 with significant suppression of the bone marrow due to the use of Hydrea with leukopenia as well as from cytopenia and he was not sure 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 Moreno , his oncologist as an outpatient which she did and he was kept off Hydrea and he was supposed to go back in 2 weeks for repeat CBC and possible bone marrow biopsy for possible bone marrow disease, patient was in his usual state of health about yesterday when he was sitting in his chair when he suddenly developed to have a right-sided chest pain associated with significant shortness breath of increased swelling in both lower extremities he felt like a gas bubble in the stomach he did not have any nausea or vomiting patient ended up coming to the ER at [facility] where he had a chest x-ray that showed right-sided pleural effusion with right pulmonary infiltrate, also his EKG showed atrial fibrillation with controlled rate with the acute kidney injury on top of chronic kidney disease, he was started on IV anabiotic was admitted to the hospital with pulmonary consultation as well as hematology oncology consultation as well. Patient was seen bipolar he was sent down for a VQ scan for evaluation ap propriate was which came back low probability for pulmonary embolus him however it did show that the patient has pneumonia, patient will be kept on Eliquis we will decrease the dose to 2.5 mg orally twice every day and he would be kept on aspirin 81 mg orally twice every day due to his essential thrombocytosis to ensure antiplatelet activity. 11/08: Patient sitting up in a recliner and apparent distress he denies any chest pain, shortness of breath, he has no abdominal pain, nausea or vomiting his swelling is much better than yesterday, he remains on Lasix 40 mg IV push every 12 hours, he is maintained on Levaquin 250 mg IV piggyback every 24 hours, we will monitor the patient for another 24 hours, physical therapy evaluation, hopefully home in the next 24 hours. Objective - Vital Signs Vital signs: Vital Signs Temp 98.5 F 11/08/19 20:00 Pulse 86 11/09/19 03:43 Resp 20 11/09/19 03:43 BP 113/62 11/09/19 03:41 Pulse Ox 98 11/09/19 03:41 Intake & Output 11/08/19 11/09/19 11/09/19 18:59 06:59 18:59 Intake Total 1260 Output Total 20 Balance 1240 Weight 96.3 kg Intake: Oral 1260 Output: Urine 20 Other: Voiding Method Toilet Toilet Urinal Urinal # Voids 1 1 # Bowel Movements 1 - Exam Review of Systems Constitutional: Reports chronic pain, Reports fatigue, Reports weakness, Denies anorexia Eyes: bilateral blurred vision, bilateral decreased vision Ears: bilateral: decreased hearing Ears, nose, mouth and throat: Denies dysphagia, Denies neck lump, Denies sore throat Cardiovascular: Reports chest pain, Reports decreased exercise tolerance, Reports dyspnea on exertion, Reports leg edema, Reports orthopnea, Reports rapid heart beat, Reports shortness of breath, Denies syncope Respiratory: Reports congestion, Reports cough, Reports cough with sputum, Reports dyspnea, Reports pain on inspiration, Reports respiratory infections, Reports wheezing, Denies excessive sputum, Denies sleep apnea, Denies snoring Gastrointestinal: Reports loss of appetite, Denies abdominal pain, Denies bloating, Denies BRBPR, Denies heartburn, Denies lactose intolerance, Denies melena, Denies nausea, Denies vomiting Genitourinary: Reports incontinence, Reports nocturia, Denies dysuria Musculoskeletal: Reports frequent falls, Reports gait dysfunction, Reports morni ng stiffness, Reports muscle weakness, Reports myalgias, Reports neck pain Musculoskeletal: bilateral: ankle swelling, foot swelling, absent: ankle pain, ankle stiffness, elbow pain, elbow stiffness, elbow swelling, foot pain, foot stiffness, hand pain, hand stiffness, hand swelling, hip pain, hip stiffness, hip swelling, knee pain, knee stiffness, knee swelling, shoulder pain, shoulder stiffness, shoulder swelling, wrist pain, wrist stiffness, wrist swelling Integumentary: Reports unusual bruising Neurological: Reports confusion, Reports memory loss, Reports sensory deficit, Reports weakness, Reports visual changes Psychiatric: Reports anxiety, Reports depression, Denies paranoia, Denies sa dness/tearfulness, Denies sleep disturbances, Denies suicidal ideation Endocrine: Denies fatigue, Denies weight change Physical examination: HEENT: Head is atraumatic, normocephalic, pupils were equal round reactive to light and accommodation, extraocular muscle movement were intact, sclera nonicteric, conjunctivae were., Mucous membranes of the mouth are somewhat dry. Neck: Supple, no JVD, decreased carotid upstroke bilaterally. Chest: Decreased breath sounds at the bases, decreased tactile fremitus at the right lower third with positive egophony, no chest wall tenderness no intercostal retractions. Heart: First heart sound is depressed, second heart sound is normal, irregularly irregular, there is systolic murmur 2/6 located in the left sternal border. Abdomen: Soft, nontender, nondistended, positive bowel sounds. Extremities: +2 edema no calf tenderness, dorsalis pedis +1 bilaterally. Neurologic exoneration: Patient is awake alert and oriented 2, cranial nerves 3-12 appear grossly intact, muscle power were 4 out of 5 in upper extremities and 3 out of 5 in bilateral lower extremities - Labs CBC & Chem 7: 11/08/19 02:35 11/08/19 02:35 Labs: Abnormal Lab Results - Last 24 Hours (Table) 11/08/19 11/08/19 Range/Units 12:49 20:23 D-Dimer 0.62 H (<0.60) mg/L FEU POC Glucose (mg/dL) 170 H (75-99) mg/dL Microbiology - Last 24 Hours (Table) 11/07/19 22:14 Blood Culture - Preliminary Blood No Growth after 24 hours Assessment and Plan Assessment: Assessment and plan: 1. Acute hypoxemic respiratory failure secondary to right-sided pleural effusion with right lower lobe pneumonia as well as acute diastolic heart failure. Continue patient on IV Lasix 40 mg IV push every 12 hours, continue patient on IV antibiotic with Levaquin 250 mg IV piggyback every 24 hours, cont inue oxygen support, continue nebulized treatment in the form of DuoNeb 3 mL 4 times every day, Pulmicort consultation appreciated. 2. Right lower lobe pneumonia with parapneumonic effusion. Continue Levaquin 250 mg IV piggyback every 24 hours, continue DuoNeb 3 mL nebulization 4 times every day, continue oxygen support. 3. Acute diastolic heart failure. Continue metoprolol 25 mg orally twice every day, continue Lasix 40 mg IV push every 12 hours. 4. History of multilobar pulmonary emboli. Patient underwent VQ scan that showed low probability for pulmonary embolism however the patient will need to be on anticoagulation due to his proximal atrial fibrillation. We'll change the dose to 2.5 mg orally twice every day. 5. Essential thrombocytosis. Patient was taken off Hydrea due to bone marrow suppression for the past week or so he is to restart baby aspirin 81 mg orally twice every day, patient will be seen in consultation by hematology oncology for further recommendation he may need to go for bone marrow biopsy, laboratory evaluation including hemolysis panel were ordered. 6. Hypertension and hypertensive cardiovascular disease. Continue metoprolol 25 mg orally twice every day and hydralazine 25 mg orally 3 times every day. 7. History of gout. Continue allopurinol 300 mg orally once every day. 8. Acute and chronic kidney disease stage II. His creatinine is back to baseline. 9. Paroxysmal atrial fibrillation. Continue metoprolol 25 mg orally twice every day, switch Eliquis to 2.5 mg orally twice every day. 10. Peripheral neuropathy. Continue gabapentin 300 mg orally twice every day. 11. Vascular dementia. Continue Rivastigmine patch 9.5 mg once every day. 12. Mixed hyperlipidemia. Continue Lipitor 20 mg orally once every day. 13. Spondylosis of the cervical spine. Continue gabapentin 300 mg orally twice every day. 14. Gait dysfunction with poor balance and recurrent falls. Physical therapy evaluation. 15. DVT prophylaxis. Continue patient on Eliquis 2.5 mg orally twice every day. 16. GI prophylaxis. Continue patient on Protonix 40 mg orally once every day. 17. Increase activity with physical therapy evaluation. 18. Hopefully home in the next 24 hours.
[2019-11-09] MEDS: RIVASTIGMINE 9.5MG/24HR PATCH TRANSDERM SCH (08:33)
[2019-11-09] MEDS: METOPROLOL TARTRATE 25 MG TAB PO SCH ×2 (08:34→20:34)
[2019-11-09] MEDS: ASPIRIN 81 MG PO SCH ×2 (08:34→20:34)
[2019-11-09] MEDS: GABAPENTIN 300 MG CAP PO SCH ×2 (08:34→20:34)
[2019-11-09] MEDS: APIXABAN 2.5 MG TABLET PO SCH ×2 (08:34→20:34)
[2019-11-09] MEDS: FUROSEMIDE 10 MG/ML 4 ML VIAL IV SCH ×2 (08:34→20:34)
[2019-11-09] MEDS: ATORVASTATIN 20 MG TAB PO SCH (08:34)
[2019-11-09] MEDS: allopurinoL 300 MG TAB PO SCH (08:34)
[2019-11-09] MEDS: IPRATROPIUM-ALBUTEROL 3 ML NEB INHALATION SCH ×4 (08:52→20:29)
[2019-11-09 09:54] LABS: Albumin 3.6 g/dL (3.5-5.0); Calcium 8.8 mg/dL (8.4-10.2); Potassium 4.1 mmol/L (3.5-5.1); Total Bilirubin 1.1 mg/dL (0.2-1.3)
[2019-11-09 10:13] LABS: Anisocytosis Slight; HCT 32.2 % (39.0-53.0); HGB 9.1 gm/dL (13.0-17.5); Hypochromasia Marked; MCH 38.1 pg (25.0-35.0); MCHC 28.3 g/dL (31.0-37.0); MCV 134.6 fL (80.0-100.0); Macrocytosis Marked; Mean Platelet Volume 8.1; Poikilocytosis Moderate; RBC 2.39 m/uL (4.30-5.90); RDW 19.1 % (11.5-15.5)
[2019-11-09 10:15] LABS: Platelet Count 1324 k/uL (150-450)
[2019-11-09] MEDS: ANAGRELIDE 0.5 MG CAP PO SCH ×3 (11:33→22:08)
[2019-11-09 11:54] LABS: Band Neutrophils % 3 %; Basophils # (M) 0.23 k/uL (0-0.2); Eosinophils # (M) 0.23 k/uL (0-0.7); Metamyelocytes # (M) 0.35 k/uL (0); Metamyelocytes % 3 %; Myelocytes # (M) 0.23 k/uL (0); Myelocytes % 2 %; Neutrophils % (M) 69 %; Nucleated Red Blood Cells 1 /100 WBC (0-0); Total Cells Counted 200
[2019-11-09 11:57] LABS: Lymphocytes # (M) 1.15 k/uL (1.0-4.8); Monocytes # (M) 1.38 k/uL (0-1.0); WBC 11.5 k/uL (3.8-10.6)
[2019-11-09 11:59] LABS: Polychromasia Present
[2019-11-09 12:01] LABS: Large Platelets Present
[2019-11-09 15:11] LABS: Folate, Serum 5.6 ng/mL
--- NOTE | 2019-11-09 15:48 | P.PN ---
Subjective Progress Note Date: 11/09/19 Principal diagnosis: ET Please see consult dated yesterday for full history of the patient. Patient is seen today personally, his is at the bedside. Patient's Hydrea was held 10/[address] Moreno, with plans to follow up tomorrow. Patient's hemoglobin was noted to be dropping at that time. Patient presented to the hospital with complaints of chest pain and acute respiratory distress. Bilateral lower extremity was negative for DVT, VQ scan was a low probability for PE with no mismatch. Patient currently continues on eliquis, he is on aspirin 81 twice a day. His hemoglobin is stable today, platelets and renal function are slightly worse. Patient's states that his shortness of breath at rest is improved, currently experiencing chest pain, he has not ambulated. Objective - Vital Signs Vital signs: Vital Signs Temp 98.2 F 11/09/19 15:22 Pulse 75 11/09/19 15:22 Resp 16 11/09/19 15:22 BP 127/71 11/09/19 15:22 Pulse Ox 93 L 11/09/19 15:22 Intake & Output 11/08/19 11/09/19 11/09/19 18:59 06:59 18:59 Intake Total 1260 480 Output Total 20 Balance 1240 480 Weight 96.3 kg Intake: Oral 1260 480 Output: Urine 20 Other: Voiding Method Toilet Toilet Urinal Urinal # Voids 1 1 2 # Bowel Movements 1 - Constitutional General appearance: Present: average body habitus, cooperative, no acute distress - EENT Eyes: Present: anicteric sclerae, EOMI ENT: Present: hard of hearing - Respiratory Respiratory: bilateral: CTA, diminished - Cardiovascular Heart sounds: normal: S1, S2 - Peripheral edema leg Peripheral Edema: bilateral: None - Gastrointestinal General gastrointestinal: Present: normal bowel sounds, soft - Neurologic Neurologic: Present: CNII-XII intact - Musculoskeletal Musculoskeletal: Present: generalized weakness - Psychiatric Psychiatric: Present: A&O x's 3, appropriate affect, intact judgment & insight - Labs CBC & Chem 7: 11/09/19 09:13 11/09/19 09:13 Labs: Abnormal Lab Results - Last 24 Hours (Table) 11/08/19 11/09/19 11/09/19 Range/Units 20:23 09:13 09:13 WBC 11.5 H (3.8-10.6) k/uL RBC 2.39 L (4.30-5.90) m/uL Hgb 9.1 L (13.0-17.5) gm/dL Hct 32.2 L (39.0-53.0) % MCV 134.6 H (80.0-100.0) fL MCH 38.1 H (25.0-35.0) pg MCHC 28.3 L (31.0-37.0) g/dL RDW 19.1 H (11.5-15.5) % Plt Count 1324 H* (150-450) k/uL Neutrophils # (Manual) 8.20 H (1.3-7.7) k/uL Monocytes # (Manual) 1.38 H (0-1.0) k/uL Basophils # (Manual) 0.23 H (0-0.2) k/uL Metamyelocytes # (Man) 0.35 H (0) k/uL Myelocytes # (Manual) 0.23 H (0) k/uL Nucleated RBCs 1 H (0-0) /100 WBC Macrocytosis Marked A Retic Count 7.0 H (0.5-2.0) % Sodium 135 L (137-145) mmol/L BUN 23 H (9-20) mg/dL Creatinine 1.71 H (0.66-1.25) mg/dL Glucose 160 H (74-99) mg/dL POC Glucose (mg/dL) 170 H (75-99) mg/dL Lactate Dehydrogenase 1373 H (313-618) U/L Total Protein 6.0 L (6.3-8.2) g/dL Microbiology - Last 24 Hours (Table) 11/07/19 22:14 Blood Culture - Preliminary Blood No Growth after 24 hours - Imaging and Cardiology Venous US: report reviewed V/Q scan report reviewed Assessment and Plan (1) ET (essential thrombocythemia) Narrative/Plan: Patient has history of same. His Hydrea was just recently held due to progressive anemia. Continue off Hydrea. Continue anticoagulant and antiplatelet therapy as prescribed. Patient has been started on Agrylin. He w ill take while inpatient. Follow-up with Dr. Moreno soon after discharge for continuation of plan or adjustments. Patient is verbalized understanding. Current Visit: Yes Status: Chronic Priority: Medium Code(s): D47.3 - ESSENTIAL (HEMORRHAGIC) THROMBOCYTHEMIA SNOMED Code(s): 974294236 Plan: Doctor attests: I performed a history and physical examination of this patient, developed impression and plan of care. Discussed with dictator. I agree with dictators note, documented as a scribe.
--- NOTE | 2019-11-09 16:03 | P.PN ---
Subjective Progress Note Date: 11/09/19 Principal diagnosis: Shortness of breath, chest pain This is a very pleasant 83-year-old gentleman who follows with Dr. Sandra as his primary care provider. He has a history of hypertension, CVA/TIA, gastroesophageal reflux disease, hyperlipidemia, osteoarthritis, GI bleed with d iverticulitis, gout, chronic back pain, rheumatic fever as a child, carotid stenosis with left carotid stent placement. The patient is a lifelong nonsmoker. He is seen the patient here back in May 2019 where he was found to have bilateral pulmonary emboli more so on the right and right-sided chest discomfort secondary to multiple right-sided rib fractures from falling. The patient is on Eliquis at 5 mg daily in the outpatient setting. He was brought in to the emergency room yesterday by his after she had noticed a rather acute onset of heavy breathing and shortness of breath. The patient does have dementia and he himself is a poor historian. Chest x-ray revealed evidence of a right lower lobe infiltrate/effusion. EKG revealed atrial fibrillation with a controlled ventricular response. White count 10.1. Hemoglobin 8.5. Platelet count 1289. Marketed macrocytosis. D-dimer 0.62. Sodium 137. Potassium 4.8. Creatinine 1.53. Troponins negative 3. ProBNP 9960. He's been initiated on Lasix 40 mg IV every 12 hours. Eliquis 5 mg daily. On 11/09/2019 patient seen in follow-up on selective care unit, he is resting comfortably in bed, sleeping, easily arousable, room air pulse ox is 93%, no fever chills, hemodynamically stable, breathing seems to be comfortable. His right lower extremity Doppler was negative for DVT. VQ scan showed evidence for moderate bilateral airway disease, no ventilation perfusion mismatch, low probability for pulmonary embolism. No fever or chills, blood cultures have been negative, currently patient is on empiric antibiotics in the form of Levaquin, IV Lasix 40 mg twice daily, oral anticoagulation and nebulized bronchodilators. Denied any chest pain, no cough or congestion. Medical oncology is following for essential thrombocytopenia, patient's Hydrea is currently on hold Objective - Vital Signs Vital signs: Vital Signs Temp 98.2 F 11/09/19 15:22 Pulse 76 11/09/19 15:47 Resp 16 11/09/19 15:22 BP 127/71 11/09/19 15:22 Pulse Ox 93 L 11/09/19 15:22 Intake & Output 11/08/19 11/09/19 11/09/19 18:59 06:59 18:59 Intake Total 1260 960 Output Total 20 Balance 1240 960 Weight 96.3 kg Intake: Oral 1260 960 Output: Urine 20 Other: Voiding Method Toilet Toilet Urinal Urinal # Voids 1 1 2 # Bowel Movements 1 - Exam GENERAL EXAM: Alert, pleasant, 73-year-old white male, currently on 2 L of oxygen with pulse ox 94% comfortable in no apparent distress. HEAD: Normocephalic/atraumatic. EYES: Normal reaction of pupils, equal size. Conjunctiva pink, sclera white. NOSE: Clear with pink turbinates. THROAT: No erythema or exudates. NECK: No masses, no JVD, no thyroid enlargement, no adenopathy. CHEST: No chest wall deformity. Symmetrical expansion. LUNGS: Equal air entry with no crackles, wheeze, rhonchi or dullness. CVS: Regular rate and rhythm, normal S1 and S2, no gallops, no murmurs, no rubs ABDOMEN: Soft, nontender. No hepatosplenomegaly, normal bowel sounds, no guarding or rigidity. EXTREMITIES: No clubbing, no edema, no cyanosis, 2+ pulses and upper and lower extremities. MUSCULOSKELETAL: Muscle strength and tone normal. SPINE: No scoliosis or deformity SKIN: No rashes CENTRAL NERVOUS SYSTEM: Alert and oriented -3. No focal deficits, tone is normal in all 4 extremities. PSYCHIATRIC: Alert and oriented -3. Appropriate affect. Intact judgment and insight. - Labs CBC & Chem 7: 11/09/19 09:13 11/09/19 09:13 Labs: Abnormal Lab Results - Last 24 Hours (Table) 11/08/19 11/09/19 11/09/19 Range/Units 20:23 09:13 09:13 WBC 11.5 H (3.8-10.6) k/uL RBC 2.39 L (4.30-5.90) m/uL Hgb 9.1 L (13.0-17.5) gm/dL Hct 32.2 L (39.0-53.0) % MCV 134.6 H (80.0-100.0) fL MCH 38.1 H (25.0-35.0) pg MCHC 28.3 L (31.0-37.0) g/dL RDW 19.1 H (11.5-15.5) % Plt Count 1324 H* (150-450) k/uL Neutrophils # (Manual) 8.20 H (1.3-7.7) k/uL Monocytes # (Manual) 1.38 H (0-1.0) k/uL Basophils # (Manual) 0.23 H (0-0.2) k/uL Metamyelocytes # (Man) 0.35 H (0) k/uL Myelocytes # (Manual) 0.23 H (0) k/uL Nucleated RBCs 1 H (0-0) /100 WBC Macrocytosis Marked A Retic Count 7.0 H (0.5-2.0) % Sodium 135 L (137-145) mmol/L BUN 23 H (9-20) mg/dL Creatinine 1.71 H (0.66-1.25) mg/dL Glucose 160 H (74-99) mg/dL POC Glucose (mg/dL) 170 H (75-99) mg/dL Lactate Dehydrogenase 1373 H (313-618) U/L Total Protein 6.0 L (6.3-8.2) g/dL Microbiology - Last 24 Hours (Table) 11/07/19 22:14 Blood Culture - Preliminary Blood No Growth after 24 hours Assessment and Plan Plan: 1 Acute hypoxic respiratory failure secondary to right-sided pleural effusion, suspect diastolic congestive heart failure, rule out recurrent PE/DVT 2 Right-sided chest discomfort with a history of multiple right-sided rib fractures from recent falls 3 History of previous multilobar PE in May 2019, was on Eliquis 5 mg daily in the outpatient setting, VQ scan showed low probability for PE, right lower leg extremity Doppler was negative for DVT 4 Acute renal failure current creatinine 1.53 5 Essential thrombocytosis 6 Dementia 7 Hypertension 8 Hyperlipidemia 9 History of GI bleed 10 History of diverticulitis 11 History of donated right kidney 12 History of gout 13 History of chronic back pain 14 Carotid stenosis with previous left carotid stent 15 Lifelong nonsmoker Plan: Continue current medical treatment, continue IV diuretics, VQ scan was low probability for PE, continue with oral anticoagulation, vital signs are stable, no worsening dyspnea, follow-up chest x-ray in the morning, continue current antibiotics. Increase activity as tolerated. Will continue to follow I performed a history & physical examination of the patient and discussed their management with my nurse practitioner, Cyndi Barron. I reviewed the nurse practitioner's note and agree with the documented findings and plan of care. Lung sounds are positive for diminished breath sounds. The findings and the impression was discussed with the patient. I attest to the documentation by the nurse practitioner. Time with Patient: Less than 30
[2019-11-09] MEDS: LEVOFLOXACIN 250MG-D5W PMX 250 MG in DEXTROSE/WATER 1 50ML.BAG IVPB SCH (17:27)
[2019-11-10] MEDS: PANTOPRAZOLE 40 MG TABLET PO SCH (06:52)
[2019-11-10] MEDS: hydrALAZINE HCL 25 MG TAB PO SCH ×3 (06:52→16:36)
[2019-11-10] MEDS: IPRATROPIUM-ALBUTEROL 3 ML NEB INHALATION SCH ×4 (08:57→20:04)
[2019-11-10] MEDS: ASPIRIN 81 MG PO SCH ×2 (09:41→22:30)
[2019-11-10] MEDS: ANAGRELIDE 0.5 MG CAP PO SCH ×3 (09:41→22:30)
[2019-11-10] MEDS: METOPROLOL TARTRATE 25 MG TAB PO SCH ×2 (09:41→22:29)
[2019-11-10] MEDS: GABAPENTIN 300 MG CAP PO SCH ×2 (09:42→22:29)
[2019-11-10] MEDS: allopurinoL 300 MG TAB PO SCH (09:42)
[2019-11-10] MEDS: FUROSEMIDE 20 MG TAB PO SCH (09:42)
[2019-11-10] MEDS: APIXABAN 2.5 MG TABLET PO SCH ×2 (09:42→22:29)
[2019-11-10] MEDS: RIVASTIGMINE 9.5MG/24HR PATCH TRANSDERM SCH (09:42)
[2019-11-10] MEDS: ATORVASTATIN 20 MG TAB PO SCH (09:42)
[2019-11-10 09:54] LABS: Albumin 3.5 g/dL (3.5-5.0); Calcium 8.9 mg/dL (8.4-10.2); Total Bilirubin 0.9 mg/dL (0.2-1.3); Total Protein 5.8 g/dL (6.3-8.2)
[2019-11-10 10:17] LABS: Anisocytosis Slight; HCT 31.7 % (39.0-53.0); HGB 8.9 gm/dL (13.0-17.5); Hypochromasia Marked; MCH 37.5 pg (25.0-35.0); MCHC 28.2 g/dL (31.0-37.0); MCV 133.2 fL (80.0-100.0); Macrocytosis Marked; Mean Platelet Volume 8.6; Poikilocytosis Moderate; RBC 2.38 m/uL (4.30-5.90); RDW 19.2 % (11.5-15.5)
[2019-11-10 10:28] LABS: Platelet Count 1221 k/uL (150-450)
[2019-11-10 10:56] LABS: Band Neutrophils % 8 %; Basophils # (M) 0.24 k/uL (0-0.2); Eosinophils # (M) 0.36 k/uL (0-0.7); Metamyelocytes # (M) 0.36 k/uL (0); Metamyelocytes % 3 %; Myelocytes # (M) 0.24 k/uL (0); Myelocytes % 2 %; Neutrophils % (M) 67 %; Nucleated Red Blood Cells 1 /100 WBC (0-0); Total Cells Counted 200
[2019-11-10 10:57] LABS: Lymphocytes # (M) 1.32 k/uL (1.0-4.8); Monocytes # (M) 0.72 k/uL (0-1.0); Poikilocytosis (M) Present; Polychromasia Present
--- NOTE | 2019-11-10 14:08 | P.PN ---
Subjective Progress Note Date: 11/10/19 Principal diagnosis: ET Pt seen in follow up, is at the bedside. Patient's Hydrea was held 10/[address] Moreno, with plans to follow up today. Patient's hemoglobin was noted to be dropping at that time. Patient presented to the hospital with complaints of chest pain and acute respiratory distress. Bilateral lower extremity was negative for DVT, VQ scan was a low probability for PE with no mismatch. Patient continues on eliquis, he is on aspirin 81 twice a day. His hemoglobin is stable today, platelets are a little lower, renal function cont to decline. Patient denies any acute physical c/o, SOB is stable, no new pain. Objective - Vital Signs Vital signs: Vital Signs Temp 97.5 F L 11/10/19 08:00 Pulse 116 H 11/10/19 13:08 Resp 18 11/10/19 08:00 BP 131/48 11/10/19 08:00 Pulse Ox 96 11/10/19 08:00 Intake & Output 11/09/19 11/10/19 11/10/19 18:59 06:59 18:59 Intake Total 1200 400 240 Output Total 650 Balance 1200 -250 240 Weight 97 kg Intake: Intake, IV Titration 50 Amount Levofloxacin 250Mg-D5w 50 Pmx 250 mg In Dextrose/ Water 1 50ml.bag @ 50 mls /hr IVPB Q24H [facility] Rx#: [id number] Oral 1200 350 240 Output: Urine 650 Other: Voiding Method Toilet Urinal # Voids 2 1 - Constitutional General appearance: Present: cooperative, no acute distress, obese - EENT Eyes: Present: anicteric sclerae, EOMI ENT: Present: hearing grossly normal - Respiratory Respiratory: bilateral: CTA - Cardiovascular Heart sounds: normal: S1, S2 - Peripheral edema leg Peripheral Edema: bilateral: None - Gastrointestinal General gastrointestinal: Present: normal bowel sounds, soft - Integumentary Integumentary: Present: flushed - Neurologic Neurologic: Present: CNII-XII intact - Musculoskeletal Musculoskeletal: Present: generalized weakness - Psychiatric Psychiatric: Present: A&O x's 3, appropriate affect, intact judgment & insight - Labs CBC & Chem 7: 11/10/19 08:43 11/10/19 08:43 Labs: Abnormal Lab Results - Last 24 Hours (Table) 11/10/19 11/10/19 Range/Units 08:43 08:43 WBC 12.0 H (3.8-10.6) k/uL RBC 2.38 L (4.30-5.90) m/uL Hgb 8.9 L (13.0-17.5) gm/dL Hct 31.7 L (39.0-53.0) % MCV 133.2 H (80.0-100.0) fL MCH 37.5 H (25.0-35.0) pg MCHC 28.2 L (31.0-37.0) g/dL RDW 19.2 H (11.5-15.5) % Plt Count 1221 H* (150-450) k/uL Neutrophils # (Manual) 9.00 H (1.3-7.7) k/uL Basophils # (Manual) 0.24 H (0-0.2) k/uL Metamyelocytes # (Man) 0.36 H (0) k/uL Myelocytes # (Manual) 0.24 H (0) k/uL Nucleated RBCs 1 H (0-0) /100 WBC Macrocytosis Marked A Sodium 136 L (137-145) mmol/L BUN 24 H (9-20) mg/dL Creatinine 1.92 H (0.66-1.25) mg/dL Glucose 136 H (74-99) mg/dL Total Protein 5.8 L (6.3-8.2) g/dL Microbiology - Last 24 Hours (Table) 11/07/19 22:14 Blood Culture - Preliminary Blood No Growth after 48 hours Assessment and Plan (1) ET (essential thrombocythemia) Narrative/Plan: Hydrea was just recently held due to progressive anemia. Continue off Hydrea. Continue anticoagulant and antiplatelet therapy as prescribed. Started on Agrylin yesterday. He will take while inpatient. Cont until follow-up with Dr. Moreno that has to be rescheduled Current Visit: Yes Status: Chronic Priority: Medium Code(s): D47.3 - ESSENTIAL (HEMORRHAGIC) THROMBOCYTHEMIA SNOMED Code(s): 473219565 Plan: Nephrology consult-out patient please, if plans for discharge. Pt renal function has continued to decline while inpatient. Patient donated one of his kidneys to his sister. There is a strong family history of polycystic kidney disease.
--- NOTE | 2019-11-10 14:25 | P.PN ---
Subjective Progress Note Date: 11/10/19 Principal diagnosis: Shortness of breath, chest pain This is a very pleasant 83-year-old gentleman who follows with Dr. Sandra as his primary care provider. He has a history of hypertension, CVA/TIA, gastroesophageal reflux disease, hyperlipidemia, osteoarthritis, GI bleed with d iverticulitis, gout, chronic back pain, rheumatic fever as a child, carotid stenosis with left carotid stent placement. The patient is a lifelong nonsmoker. He is seen the patient here back in May 2019 where he was found to have bilateral pulmonary emboli more so on the right and right-sided chest discomfort secondary to multiple right-sided rib fractures from falling. The patient is on Eliquis at 5 mg daily in the outpatient setting. He was brought in to the emergency room yesterday by his after she had noticed a rather acute onset of heavy breathing and shortness of breath. The patient does have dementia and he himself is a poor historian. Chest x-ray revealed evidence of a right lower lobe infiltrate/effusion. EKG revealed atrial fibrillation with a controlled ventricular response. White count 10.1. Hemoglobin 8.5. Platelet count 1289. Marketed macrocytosis. D-dimer 0.62. Sodium 137. Potassium 4.8. Creatinine 1.53. Troponins negative 3. ProBNP 9960. He's been initiated on Lasix 40 mg IV every 12 hours. Eliquis 5 mg daily. On 11/09/2019 patient seen in follow-up on selective care unit, he is resting comfortably in bed, sleeping, easily arousable, room air pulse ox is 93%, no fever chills, hemodynamically stable, breathing seems to be comfortable. His right lower extremity Doppler was negative for DVT. VQ scan showed evidence for moderate bilateral airway disease, no ventilation perfusion mismatch, low probability for pulmonary embolism. No fever or chills, blood cultures have been negative, currently patient is on empiric antibiotics in the form of Levaquin, IV Lasix 40 mg twice daily, oral anticoagulation and nebulized bronchodilators. Denied any chest pain, no cough or congestion. Medical oncology is following for essential thrombocytopenia, patient's Hydrea is currently on hold On 11/10/2019 patient seen in follow-up on selective care unit, he is awake and alert, breathing has improved today, he denies any shortness of breath, no chest pain, lung sounds are clear, he remains on 2 L of oxygen with pulse ox of 96%. His right lower extremity Doppler was negative for DVT, his VQ scan showed low probability for PE, his vitals have been stable. His platelet count today is 1221, Hydrea remains on hold, hematology is following, white blood cell count is 12, sodium is 136, direct electrolytes are within normal limits, BUN is 24 creatinine is 1.9. Vital signs have been stable. Objective - Vital Signs Vital signs: Vital Signs Temp 97.5 F L 11/10/19 08:00 Pulse 116 H 11/10/19 13:08 Resp 18 11/10/19 08:00 BP 131/48 11/10/19 08:00 Pulse Ox 96 11/10/19 08:00 Intake & Output 11/09/19 11/10/19 11/10/19 18:59 06:59 18:59 Intake Total 1200 400 240 Output Total 650 Balance 1200 -250 240 Weight 97 kg Intake: Intake, IV Titration 50 Amount Levofloxacin 250Mg-D5w 50 Pmx 250 mg In Dextrose/ Water 1 50ml.bag @ 50 mls /hr IVPB Q24H [facility] Rx#: [id number] Oral 1200 350 240 Output: Urine 650 Other: Voiding Method Toilet Urinal # Voids 2 1 - Exam GENERAL EXAM: Alert, pleasant, 73-year-old white male, currently on 2 L of oxygen with pulse ox 96% comfortable in no apparent distress. HEAD: Normocephalic/atraumatic. EYES: Normal reaction of pupils, equal size. Conjunctiva pink, sclera white. NOSE: Clear with pink turbinates. THROAT: No erythema or exudates. NECK: No masses, no JVD, no thyroid enlargement, no adenopathy. CHEST: No chest wall deformity. Symmetrical expansion. LUNGS: Equal air entry with no crackles, wheeze, rhonchi or dullness. CVS: Regular rate and rhythm, normal S1 and S2, no gallops, no murmurs, no rubs ABDOMEN: Soft, nontender. No hepatosplenomegaly, normal bowel sounds, no guarding or rigidity. EXTREMITIES: No clubbing, no edema, no cyanosis, 2+ pulses and upper and lower extremities. MUSCULOSKELETAL: Muscle strength and tone normal. SPINE: No scoliosis or deformity SKIN: No rashes CENTRAL NERVOUS SYSTEM: Alert and oriented -3. No focal deficits, tone is norm al in all 4 extremities. PSYCHIATRIC: Alert and oriented -3. Appropriate affect. Intact judgment and insight. - Labs CBC & Chem 7: 11/10/19 08:43 11/10/19 08:43 Labs: Abnormal Lab Results - Last 24 Hours (Table) 11/10/19 11/10/19 Range/Units 08:43 08:43 WBC 12.0 H (3.8-10.6) k/uL RBC 2.38 L (4.30-5.90) m/uL Hgb 8.9 L (13.0-17.5) gm/dL Hct 31.7 L (39.0-53.0) % MCV 133.2 H (80.0-100.0) fL MCH 37.5 H (25.0-35.0) pg MCHC 28.2 L (31.0-37.0) g/dL RDW 19.2 H (11.5-15.5) % Plt Count 1221 H* (150-450) k/uL Neutrophils # (Manual) 9.00 H (1.3-7.7) k/uL Basophils # (Manual) 0.24 H (0-0.2) k/uL Metamyelocytes # (Man) 0.36 H (0) k/uL Myelocytes # (Manual) 0.24 H (0) k/uL Nucleated RBCs 1 H (0-0) /100 WBC Macrocytosis Marked A Sodium 136 L (137-145) mmol/L BUN 24 H (9-20) mg/dL Creatinine 1.92 H (0.66-1.25) mg/dL Glucose 136 H (74-99) mg/dL Total Protein 5.8 L (6.3-8.2) g/dL Microbiology - Last 24 Hours (Table) 11/07/19 22:14 Blood Culture - Preliminary Blood No Growth after 48 hours Assessment and Plan Plan: 1 Acute hypoxic respiratory failure secondary to right-sided pleural effusion, suspect diastolic congestive heart failure, VQ scan was low probability for PE, and right lower extremity was negative for DVT 2 Right-sided chest discomfort with a history of multiple right-sided rib fractures from recent falls 3 History of previous multilobar PE in May 2019, was on Eliquis 5 mg daily in the outpatient setting, VQ scan showed low probability for PE, right lower leg extremity Doppler was negative for DVT 4 Acute renal failure current creatinine 1.53, worsening, up to 1.92 on today's labs 5 Essential thrombocytosis 6 Dementia 7 Hypertension 8 Hyperlipidemia 9 History of GI bleed 10 History of diverticulitis 11 History of donated right kidney 12 History of gout 13 History of chronic back pain 14 Carotid stenosis with previous left carotid stent 15 Lifelong nonsmoker Plan: Wean FiO2, no worsening dyspnea, vital signs have been stable, continue oral anticoagulation, patient is on was daily dose of Lasix, lung sounds are clear, no fever chills, vital signs have been stable. No evidence of right lower extremity DVT on the right lower extremity Doppler or PE according to the VQ scan. There has been some worsening of renal function, and patient is awaiting nephrology evaluation. Otherwise stable from pulmonary perspective. When cleared by nephrology and primary care service patient chemically considered for discharge from pulmonary perspective with outpatient follow-up in the office with Dr. Martin I performed a history & physical examination of the patient and discussed their management with my nurse practitioner, Cyndi Barron. I reviewed the nurse practitioner's note and agree with the documented findings and plan of care. Lung sounds are positive for diminished breath sounds. The findings and the impression was discussed with the patient. I attest to the documentation by the nurse practitioner. Time with Patient: Less than 30
[2019-11-10] MEDS: LEVOFLOXACIN 250MG-D5W PMX 250 MG in DEXTROSE/WATER 1 50ML.BAG IVPB SCH (16:45)
[2019-11-11] MEDS: hydrALAZINE HCL 25 MG TAB PO SCH ×2 (07:05→12:18)
[2019-11-11] MEDS: PANTOPRAZOLE 40 MG TABLET PO SCH (07:05)
[2019-11-11] MEDS: IPRATROPIUM-ALBUTEROL 3 ML NEB INHALATION SCH ×3 (07:53→16:16)
[2019-11-11] MEDS: ASPIRIN 81 MG PO SCH (08:12)
[2019-11-11] MEDS: GABAPENTIN 300 MG CAP PO SCH (08:12)
[2019-11-11] MEDS: METOPROLOL TARTRATE 25 MG TAB PO SCH (08:12)
[2019-11-11] MEDS: ANAGRELIDE 0.5 MG CAP PO SCH ×2 (08:12→15:35)
[2019-11-11] MEDS: allopurinoL 300 MG TAB PO SCH (08:12)
[2019-11-11] MEDS: APIXABAN 2.5 MG TABLET PO SCH (08:12)
[2019-11-11] MEDS: ATORVASTATIN 20 MG TAB PO SCH (08:12)
[2019-11-11] MEDS: RIVASTIGMINE 9.5MG/24HR PATCH TRANSDERM SCH (08:13)
[2019-11-11] MEDS: FUROSEMIDE 20 MG TAB PO SCH (08:13)
[2019-11-11 08:57] VITALS: RESP 19
[2019-11-11 09:00] LABS: Anisocytosis Slight; Basophils # (A) 0.1 k/uL (0-0.2); Basophils % (A) 1 %; Eosinophils # (A) 0.3 k/uL (0-0.7); Eosinophils % (A) 3 %; HCT 28.8 % (39.0-53.0); HGB 8.2 gm/dL (13.0-17.5); Hypochromasia Marked; Lymphocytes # (A) 1.4 k/uL (1.0-4.8); Lymphocytes % (A) 12 %; MCH 37.1 pg (25.0-35.0); MCHC 28.4 g/dL (31.0-37.0); MCV 130.8 fL (80.0-100.0); Macrocytosis Marked; Mean Platelet Volume 9.4; Monocytes # (A) 1.1 k/uL (0-1.0); Monocytes % (A) 10 %; Neutrophils # (A) 8.1 k/uL (1.3-7.7); Neutrophils % (A) 72 %; Platelet Count 1096 k/uL (150-450); Poikilocytosis Slight; RBC 2.21 m/uL (4.30-5.90); RDW 19.7 % (11.5-15.5); WBC 11.2 k/uL (3.8-10.6)
[2019-11-11 11:24] LABS: Polychromasia Present
[2019-11-11 14:22] LABS: Calcium 8.6 mg/dL (8.4-10.2); Potassium 4.8 mmol/L (3.5-5.1)
--- NOTE | 2019-11-11 14:23 | P.PN ---
Subjective Progress Note Date: 11/10/19 This is an 83-year-old male one of my patient with a previous medical history significant for hypertension and hypertensive cardio vascular disease, hyperlipidemia, chronic kidney disease stage II, history of essential thrombocytosis, history of severe spondylosis of the cervical spine, history of proximal atrial fib relation, was recently hospitalized in August 2019 where he was found to have multilobar pulmonary emboli and he was started on Eliquis 5 mg orally twice every day, and it was doubtful for whether or not to keep the patient on anticoagulation because of recurrent falls and increased risk of bleeding, eventually the decision was made to keep the patient on outpatient this point in time, he was seen in the office 3 weeks when he was found to have a significant macrocytosis with MCV of 120 with significant suppression of the bone marrow due to the use of Hydrea with leukopenia as well as from cytopenia and he was not sure 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 Moreno , his oncologist as an outpatient which she did and he was kept off Hydrea and he was supposed to go back in 2 weeks for repeat CBC and possible bone marrow biopsy for possible bone marrow disease, patient was in his usual state of health about yesterday when he was sitting in his chair when he suddenly developed to have a right-sided chest pain associated with significant shortness breath of increased swelling in both lower extremities he felt like a gas bubble in the stomach he did not have any nausea or vomiting patient ended up coming to the ER at [facility] where he had a chest x-ray that showed right-sided pleural effusion with right pulmonary infiltrate, also his EKG showed atrial fibrillation with controlled rate with the acute kidney injury on top of chronic kidney disease, he was started on IV anabiotic was admitted to the hospital with pulmonary consultation as well as hematology oncology consultation as well. Patient was seen bipolar he was sent down for a VQ scan for evaluation ap propriate was which came back low probability for pulmonary embolus him however it did show that the patient has pneumonia, patient will be kept on Eliquis we will decrease the dose to 2.5 mg orally twice every day and he would be kept on aspirin 81 mg orally twice every day due to his essential thrombocytosis to ensure antiplatelet activity. 11/08: Patient sitting up in a recliner and apparent distress he denies any chest pain, shortness of breath, he has no abdominal pain, nausea or vomiting his swelling is much better than yesterday, he remains on Lasix 40 mg IV push every 12 hours, he is maintained on Levaquin 250 mg IV piggyback every 24 hours, we will monitor the patient for another 24 hours, physical therapy evaluation, hopefully home in the next 24 hours. 11/09:Patient is ding much better, he still have some swelling in both legs, no chest pain or shortness of breath, no abdominal pain, nausea, vomiting or diarrhea, he continues to participate in therapy, he will be likely going home tomorrow. Objective - Vital Signs Vital signs: Vital Signs Temp 97.9 F 11/10/19 04:00 Pulse 104 H 11/10/19 04:00 Resp 18 11/10/19 04:00 BP 129/60 11/10/19 04:00 Pulse Ox 94 L 11/10/19 04:00 Intake & Output 11/09/19 11/10/19 11/10/19 18:59 06:59 18:59 Intake Total 1200 400 Output Total 650 Balance 1200 -250 Weight 97 kg Intake: Intake, IV Titration 50 Amount Levofloxacin 250Mg-D5w 50 Pmx 250 mg In Dextrose/ Water 1 50ml.bag @ 50 mls /hr IVPB Q24H [facility] Rx#: [id number] Oral 1200 350 Output: Urine 650 Other: Voiding Method Toilet Urinal # Voids 2 1 - Exam Review of Systems Constitutional: Reports chronic pain, Reports fatigue, Reports weakness, Denies anorexia Eyes: bilateral blurred vision, bilateral decreased vision Ears: bilateral: decreased hearing Ears, nose, mouth and throat: Denies dysphagia, Denies neck lump, Denies sore throat Cardiovascular: Reports chest pain, Reports decreased exercise tolerance, Reports dyspnea on exertion, Reports leg edema, Reports orthopnea, Reports rapid heart beat, Reports shortness of breath, Denies syncope Respiratory: Reports congestion, Reports cough, Reports cough with sputum, Reports dyspnea, Reports pain on inspiration, Reports respiratory infections, Reports wheezing, Denies excessive sputum, Denies sleep apnea, Denies snoring Gastrointestinal: Reports loss of appetite, Denies abdominal pain, Denies bloati ng, Denies BRBPR, Denies heartburn, Denies lactose intolerance, Denies melena, Denies nausea, Denies vomiting Genitourinary: Reports incontinence, Reports nocturia, Denies dysuria Musculoskeletal: Reports frequent falls, Reports gait dysfunction, Reports morning stiffness, Reports muscle weakness, Reports myalgias, Reports neck pain Musculoskeletal: bilateral: ankle swelling, foot swelling, absent: ankle pain, ankle stiffness, elbow pain, elbow stiffness, elbow swelling, foot pain, foot stiffness, hand pain, hand stiffness, hand swelling, hip pain, hip stiffness, hip swelling, knee pain, knee stiffness, knee swelling, shoulder pain, shoulder stiffness, shoulder swelling, wrist pain, wrist stiffness, wrist swelling Integumentary: Reports unusual bruising Neurological: Reports confusion, Reports memory loss, Reports sensory deficit, Reports weakness, Reports visual changes Psychiatric: Reports anxiety, Reports depression, Denies paranoia, Denies sadness/tearfulness, Denies sleep disturbances, Denies suicidal ideation Endocrine: Denies fatigue, Denies weight change Physical examination: HEENT: Head is atraumatic, normocephalic, pupils were equal round reactive to light and accommodation, extraocular muscle movement were intact, sclera nonicteric, conjunctivae were., Mucous membranes of the mouth are somewhat dry. Neck: Supple, no JVD, decreased carotid upstroke bilaterally. Chest: Decreased breath sounds at the bases, decreased tactile fremitus at the right lower third with positive egophony, no chest wall tenderness no intercostal retractions. Heart: First heart sound is depressed, second heart sound is normal, irregularly irregular, there is systolic murmur 2/6 located in the left sternal border. Abdomen: Soft, nontender, nondistended, positive bowel sounds. Extremities: +2 edema no calf tenderness, dorsalis pedis +1 bilaterally. Neurologic exoneration: Patient is awake alert and oriented 2, cranial nerves 3-12 appear grossly intact, muscle power were 4 out of 5 in upper extremities and 3 out of 5 in bilateral lower extremities - Labs CBC & Chem 7: 11/11/19 06:55 11/10/19 08:43 Labs: Abnormal Lab Results - Last 24 Hours (Table) 11/09/19 11/09/19 Range/Units 09:13 09:13 WBC 11.5 H (3.8-10.6) k/uL RBC 2.39 L (4.30-5.90) m/uL Hgb 9.1 L (13.0-17.5) gm/dL Hct 32.2 L (39.0-53.0) % MCV 134.6 H (80.0-100.0) fL MCH 38.1 H (25.0-35.0) pg MCHC 28.3 L (31.0-37.0) g/dL RDW 19.1 H (11.5-15.5) % Plt Count 1324 H* (150-450) k/uL Neutrophils # (Manual) 8.20 H (1.3-7.7) k/uL Monocytes # (Manual) 1.38 H (0-1.0) k/uL Basophils # (Manual) 0.23 H (0-0.2) k/uL Metamyelocytes # (Man) 0.35 H (0) k/uL Myelocytes # (Manual) 0.23 H (0) k/uL Nucleated RBCs 1 H (0-0) /100 WBC Macrocytosis Marked A Retic Count 7.0 H (0.5-2.0) % Sodium 135 L (137-145) mmol/L BUN 23 H (9-20) mg/dL Creatinine 1.71 H (0.66-1.25) mg/dL Glucose 160 H (74-99) mg/dL Lactate Dehydrogenase 1373 H (313-618) U/L Total Protein 6.0 L (6.3-8.2) g/dL Microbiology - Last 24 Hours (Table) 11/07/19 22:14 Blood Culture - Preliminary Blood No Growth after 48 hours Assessment and Plan Assessment: Assessment and plan: 1. Acute hypoxemic respiratory failure secondary to right-sided pleural effusion with right lower lobe pneumonia as well as acute diastolic heart failure. we will switch lasix to 40 mg orally daily and we will monitor input and output and daily weight,, continue patient on IV antibiotic with Levaquin 250 mg IV piggyback every 24 hours, continue oxygen support, continue nebulized treatment in the form of DuoNeb 3 mL 4 times every day, Pulmicort consultation appreciated. 2. Right lower lobe pneumonia with parapneumonic effusion. Continue Levaquin 250 mg IV piggyback every 24 hours, continue DuoNeb 3 mL nebulization 4 times every day, continue oxygen support. 3. Acute diastolic heart failure. Continue metoprolol 25 mg orally twice every day, continue Lasix 40 mg po daily 4. History of multilobar pulmonary emboli. Patient underwent VQ scan that showed low probability for pulmonary embolism however the patient will need to be on anticoagulation due to his proximal atrial fibrillation. We'll change the dose to 2.5 mg orally twice every day. 5. Essential thrombocytosis. Patient was taken off Hydrea due to bone marrow suppression for the past week or so he is to restart baby aspirin 81 mg orally twice every day, patient will be seen in consultation by hematology oncology for further recommendation he may need to go for bone marrow biopsy, laboratory evaluation including hemolysis panel were ordered. 6. Hypertension and hypertensive cardiovascular disease. Continue metoprolol 25 mg orally twice every day and hydralazine 25 mg orally 3 times every day. 7. History of gout. Continue allopurinol 300 mg orally once every day. 8. Acute and chronic kidney disease stage II. His creatinine is back to baseline. 9. Paroxysmal atrial fibrillation. Continue metoprolol 25 mg orally twice every day, switch Eliquis to 2.5 mg orally twice every day. 10. Peripheral neuropathy. Continue gabapentin 300 mg orally twice every day. 11. Vascular dementia. Continue Rivastigmine patch 9.5 mg once every day. 12. Mixed hyperlipidemia. Continue Lipitor 20 mg orally once every day. 13. Spondylosis of the cervical spine. Continue gabapentin 300 mg orally twice every day. 14. Gait dysfunction with poor balance and recurrent falls. Physical therapy evaluation. 15. DVT prophylaxis. Continue patient on Eliquis 2.5 mg orally twice every day. 16. GI prophylaxis. Continue patient on Protonix 40 mg orally once every day. 17. Increase activity with physical therapy evaluation. 18. Hopefully home in the next 24 hours.
--- NOTE | 2019-11-11 15:04 | P.PN ---
Subjective Progress Note Date: 11/11/19 Principal diagnosis: Shortness of breath, chest pain This is a very pleasant 83-year-old gentleman who follows with Dr. Sandra as his primary care provider. He has a history of hypertension, CVA/TIA, gastroesophageal reflux disease, hyperlipidemia, osteoarthritis, GI bleed with diverticulitis, gout, chronic back pain, rheumatic fever as a child, carotid stenosis with left carotid stent placement. The patient is a lifelong nonsmoker. He is seen the patient here back in May 2019 where he was found to have bilateral pulmonary emboli more so on the right and right-sided chest discomfort secondary to multiple right-sided rib fractures from falling. The patient is on Eliquis at 5 mg daily in the outpatient setting. He was brought in to the emergency room yesterday by his after she had noticed a rather acute onset of heavy breathing and shortness of breath. The patient does have dementia and he himself is a poor historian. Chest x-ray revealed evidence of a right lower lobe infiltrate/effusion. EKG revealed atrial fibrillation with a controlled ventricular response. White count 10.1. Hemoglobin 8.5. Platelet count 1289. Marketed macrocytosis. D-dimer 0.62. Sodium 137. Potassium 4.8. Creatinine 1.53. Troponins negative 3. ProBNP 9960. He's been initiated on Lasix 40 mg IV every 12 hours. Eliquis 5 mg daily. On 11/09/2019 patient seen in follow-up on selective care unit, he is resting comfortably in bed, sleeping, easily arousable, room air pulse ox is 93%, no fever chills, hemodynamically stable, breathing seems to be comfortable. His right lower extremity Doppler was negative for DVT. VQ scan showed evidence for moderate bilateral airway disease, no ventilation perfusion mismatch, low probability for pulmonary embolism. No fever or chills, blood cultures have been negative, currently patient is on empiric antibiotics in the form of Levaquin, IV Lasix 40 mg twice daily, oral anticoagulation and nebulized bronchodilators. Denied any chest pain, no cough or congestion. Medical oncology is following for essential thrombocytopenia, patient's Hydrea is currently on hold On 11/10/2019 patient seen in follow-up on selective care unit, he is awake and alert, breathing has improved today, he denies any shortness of breath, no chest pain, lung sounds are clear, he remains on 2 L of oxygen with pulse ox of 96%. His right lower extremity Doppler was negative for DVT, his VQ scan showed low probability for PE, his vitals have been stable. His platelet count today is 1221, Hydrea remains on hold, hematology is following, white blood cell count is 12, sodium is 136, direct electrolytes are within normal limits, BUN is 24 creatinine is 1.9. Vital signs have been stable. The patient is seen today 11/11/2019 in follow-up on the selective care unit. He is currently awake and alert in no acute distress. Denies any further chest discomfort. Maintaining O2 saturations in the mid 90s on 2 L/m per nasal cannula. He's been afebrile. Blood culture reveals no growth. White count 11.2. Hemoglobin 8.2. Platelet count 1,096,000. Sodium 136. Potassium 4.8. Creatinine 1.91. Anticoagulated with Eliquis. Remains on antibiotics in the form of Levaquin. Objective - Vital Signs Vital signs: Vital Signs Temp 98.2 F 11/11/19 08:10 Pulse 86 11/11/19 12:00 Resp 19 11/11/19 12:00 BP 100/57 11/11/19 12:00 Pulse Ox 91 L 11/11/19 12:00 Intake & Output 11/10/19 11/11/19 11/11/19 18:59 06:59 18:59 Intake Total 600 540 300 Output Total 350 Balance 600 540 -50 Weight 97.5 kg Intake: Oral 600 540 300 Output: Urine 350 Other: Voiding Method Toilet # Voids 3 - Exam GENERAL EXAM: Alert, pleasant, 73-year-old male patient, currently on 2 L of oxygen with pulse ox 96% comfortable in no apparent distress. HEAD: Normocephalic/atraumatic. EYES: Normal reaction of pupils, equal size. Conjunctiva pink, sclera white. NOSE: Clear with pink turbinates. THROAT: No erythema or exudates. NECK: No masses, no JVD, no thyroid enlargement, no adenopathy. CHEST: No chest wall deformity. Symmetrical expansion. LUNGS: Equal air entry with no crackles, wheeze, rhonchi or dullness. CVS: Regular rate and rhythm, normal S1 and S2, no gallops, no murmurs, no rubs ABDOMEN: Soft, nontender. No hepatosplenomegaly, normal bowel sounds, no guarding or rigidity. EXTREMITIES: No clubbing, no edema, no cyanosis, 2+ pulses and upper and lower extremities. MUSCULOSKELETAL: Muscle strength and tone normal. SPINE: No scoliosis or deformity SKIN: No rashes CENTRAL NERVOUS SYSTEM: Alert and oriented -3. No focal deficits, tone is normal in all 4 extremities. PSYCHIATRIC: Alert and oriented -3. Appropriate affect. Intact judgment and insight. - Labs CBC & Chem 7: 11/11/19 06:55 11/11/19 06:55 Labs: Abnormal Lab Results - Last 24 Hours (Table) 11/11/19 11/11/19 Range/Units 06:55 06:55 WBC 11.2 H (3.8-10.6) k/uL RBC 2.21 L (4.30-5.90) m/uL Hgb 8.2 L (13.0-17.5) gm/dL Hct 28.8 L (39.0-53.0) % MCV 130.8 H (80.0-100.0) fL MCH 37.1 H (25.0-35.0) pg MCHC 28.4 L (31.0-37.0) g/dL RDW 19.7 H (11.5-15.5) % Plt Count 1096 H* (150-450) k/uL Neutrophils # 8.1 H (1.3-7.7) k/uL Monocytes # 1.1 H (0-1.0) k/uL Macrocytosis Marked A Sodium 133 L (137-145) mmol/L BUN 26 H (9-20) mg/dL Creatinine 1.91 H (0.66-1.25) mg/dL Microbiology - Last 24 Hours (Table) 11/07/19 22:14 Blood Culture - Preliminary Blood No Growth after 72 hours Assessment and Plan Assessment: 1 Acute hypoxic respiratory failure secondary to right-sided pleural effusion, suspect diastolic congestive heart failure, VQ scan revealed low probability for PE, right lower extremity Doppler negative for DVT 2 Right-sided chest discomfort with a history of multiple right-sided rib fractures from recent falls 3 History of previous multilobar PE in May 2019, was on Eliquis 5 mg daily in the outpatient setting 4 Acute renal failure current creatinine 1.91 5 Essential thrombocytosis 6 Dementia 7 Hypertension 8 Hyperlipidemia 9 History of GI bleed 10 History of diverticulitis 11 History of donated right kidney 12 History of gout 13 History of chronic back pain 14 Carotid stenosis with previous left carotid stent 15 Lifelong nonsmoker Plan: The patient was seen and evaluated by Dr. Wu Verma Titrate down the FiO2 as tolerated Home once cleared medically I, the cosigning physician, performed a history & physical examination of the patient. Lungs sounds crackles in the right posterior base, diminished. Maintaining good O2 saturations in the 90s on 2 L/m per nasal. I discussed the assessment and plan of care with my nurse practitioner, Nasima Hadley. I attest to the above note as dictated by her.
--- NOTE | 2019-11-11 15:59 | P.DS ---
Providers Date of admission: 11/07/19 21:35 Expected date of discharge: 11/11/19 Attending physician: Laurita Sandra Consults: 11/07/19 21:36 Consult Physician Urgent Consulting Provider: Kev Moreno Consult Reason/Comments: essential thrombocytosis Do you want consulting provider notified?: Yes 11/07/19 23:17 Consult Physician Urgent Consulting Provider: Humberto Platt Consult Reason/Comments: acute respiratory failure, CAP Do you want consulting provider notified?: Yes, Notify in am 11/10/19 12:15 Consult Physician Routine Consulting Provider: Lenka Burgess Consult Reason/Comments: decreasing kidney function Do you want consulting provider notified?: Yes Primary care physician: Laurita Sandra [facility] Course: This is an 83-year-old male one of my patient with a previous medical history significant for hypertension and hypertensive cardio vascular disease, hyperlipidemia, chronic kidney disease stage II, history of essential thrombocytosis, history of severe spondylosis of the cervical spine, history of proximal atrial fib relation, was recently hospitalized in August 2019 where he was found to have multilobar pulmonary emboli and he was started on Eliquis 5 mg orally twice every day, and it was doubtful for whether or not to keep the patient on anticoagulation because of recurrent falls and increased risk of bleeding, eventually the decision was made to keep the patient on outpatient this point in time, he was seen in the office 3 weeks when he was found to have a significant macrocytosis with MCV of 120 with significant suppression of the bone marrow due to the use of Hydrea with leukopenia as well as from cytopenia and he was not sure 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 Moreno , his oncologist as an outpatient which she did and he was kept off Hydrea and he was supposed to go back in 2 weeks for repeat CBC and possible bone marrow biopsy for possible bone marrow disease, patient was in his usual state of health about yesterday when he was sitting in his chair when he suddenly developed to have a right-sided chest pain associated with significant shortness breath of increased swelling in both lower extremities he felt like a gas bubble in the stomach he did not have any nausea or vomiting patient ended up coming to the ER at [facility] where he had a chest x-ray that showed right-sided pleural effusion with right pulmonary infiltrate, also his EKG showed atrial fibrillation with controlled rate with the acute kidney injury on top of chronic kidney disease, he was started on IV anabiotic was admitted to the hospital with pulmonary consultation as well as hematology oncology consultation as well. Patient was seen bipolar he was sent down for a VQ scan for evaluation appropriate was which came back low probability for pulmonary embolus him however it did show that the patient has pneumonia, patient will be kept on Eliq uis we will decrease the dose to 2.5 mg orally twice every day and he would be kept on aspirin 81 mg orally twice every day due to his essential thrombocytosis to ensure antiplatelet activity. 11/08: Patient sitting up in a recliner and apparent distress he denies any chest pain, shortness of breath, he has no abdominal pain, nausea or vomiting his swelling is much better than yesterday, he remains on Lasix 40 mg IV push every 12 hours, he is maintained on Levaquin 250 mg IV piggyback every 24 hours, we will monitor the patient for another 24 hours, physical therapy evaluation, hopefully home in the next 24 hours. 11/09:Patient is ding much better, he still have some swelling in both legs, no chest pain or shortness of breath, no abdominal pain, nausea, vomiting or diarrhea, he continues to participate in therapy, he will be likely going home tomorrow. Discharge diagnoses: 1. Acute hypoxemic respiratory failure secondary to right-sided pleural effusion with right lower lobe pneumonia as well as acute diastolic heart failure. 2. Right lower lobe pneumonia with parapneumonic effusion. . 3. Acute diastolic heart failure. 4. History of multilobar pulmonary emboli. 5. Essential thrombocytosis. 6. Hypertension and hypertensive cardiovascular disease. 7. History of gout. 8. Acute on chronic kidney disease stage II. 9. Paroxysmal atrial fibrillation. 10. Peripheral neuropathy. 11. Vascular dementia. 12. Mixed hyperlipidemia. 13. Spondylosis of the cervical spine. Patient Condition at Discharge: Stable Plan - Discharge Summary Discharge Rx Participant: No New Discharge Prescriptions: New Anagrelide [Agrylin] 0.5 mg PO DAILY #30 capsule Aspirin 81 mg PO BID chew Apixaban [Eliquis] 2.5 mg PO BID #60 tablet Levofloxacin [Levaquin] 250 mg PO Q24H #7 tab Continue hydrALAZINE HCL [Apresoline] 25 mg PO AC-TID allopurinoL [Zyloprim] 300 mg PO DAILY EPINEPHrine (Auto Inject) [Epipen] 0.3 mg IM ONCE PRN PRN Reason: Anaphylaxis Gabapentin [Neurontin] 300 mg PO BID Pantoprazole Sodium [Protonix] 40 mg PO AC-BRKFST Rivastigmine 9.5MG/24Hr Patch [Exelon 9.5MG/24Hr Patch] 1 patch TRANSDERM Q24HR Atorvastatin Calcium [Lipitor] 20 mg PO DAILY Metoprolol Tartrate [Lopressor] 25 mg PO BID Discontinued Aspirin EC [Ecotrin Low Dose] 81 mg PO DAILY Apixaban [Eliquis] 5 mg PO DAILY #1 Discharge Medication List allopurinoL [Zyloprim] 300 mg PO DAILY 09/01/13 [History] hydrALAZINE HCL [Apresoline] 25 mg PO AC-TID 09/01/13 [History] EPINEPHrine (Auto Inject) [Epipen] 0.3 mg IM ONCE PRN 01/06/17 [History] Gabapentin [Neurontin] 300 mg PO BID 06/13/17 [History] Pantoprazole Sodium [Protonix] 40 mg PO AC-BRKFST 08/04/17 [History] Rivastigmine 9.5MG/24Hr Patch [Exelon 9.5MG/24Hr Patch] 1 patch TRANSDERM Q24HR 05/29/19 [History] Atorvastatin Calcium [Lipitor] 20 mg PO DAILY 08/14/19 [History] Metoprolol Tartrate [Lopressor] 25 mg PO BID 11/07/19 [History] Anagrelide [Agrylin] 0.5 mg PO DAILY #30 capsule 11/10/19 [Rx] Apixaban [Eliquis] 2.5 mg PO BID #60 tablet 11/11/19 [Rx] Aspirin 81 mg PO BID chew 11/11/19 [Rx] Levofloxacin [Levaquin] 250 mg PO Q24H #7 tab 11/11/19 [Rx] Follow up Appointment(s)/Referral(s): Shannon Varner NPC [Nurse Practitioner] - 11/18/19 10:45 am Laurita Sandra MD [Primary Care Provider] - 1 Week Stevie Washburn DO [Doctor of Osteopathic Medicine] - 11/20/19 1:15 pm Discharge Disposition: HOME WITH HOME HEALTH SERVICES
[2019-11-11 16:00] LABS: Appearance,Urine Clear (Clear); Bilirubin,Urine Negative (Negative); Blood,Urine Negative (Negative); Color,Urine Light Yellow; Glucose,Urine (UA) Negative (Negative); Ketones,Urine Negative (Negative); Leukocyte Esterase,Urine Negative (Negative); Nitrite,Urine Negative (Negative); PH, Urine 5.5 (5.0-8.0); Protein,Urine Negative (Negative); Specific Gravity,Urine 1.006 (1.001-1.035); Urobilinogen,Urine <2.0 mg/dL (<2.0)
[2019-11-11] MEDS ORDERED: LEVOFLOXACIN 250 MG TAB PO SCH (16:00)
[2019-11-11 16:06] VITALS: BP 118/64; PULSE 95; TEMP 98.1
--- NOTE | 2019-11-11 17:14 | P.PN ---
Subjective Progress Note Date: 11/11/19 Principal diagnosis: ET Pt seen in follow up, he is doing well today, has no acute c/o. Patient's Hydrea was held 10/[address] Moreno, with plans to follow up this week. He was started on agrylin 11/08, tolerating well. Patient continues on eliquis, he is on aspirin 81 twice a day. His hemoglobin is stable today, platelets are lower, renal function stable. Objective - Vital Signs Vital signs: Vital Signs Temp 98.1 F 11/11/19 16:00 Pulse 95 11/11/19 16:00 Resp 19 11/11/19 16:00 BP 118/64 11/11/19 16:00 Pulse Ox 91 L 11/11/19 16:00 Intake & Output 11/10/19 11/11/19 11/11/19 18:59 06:59 18:59 Intake Total 600 540 300 Output Total 350 Balance 600 540 -50 Weight 97.5 kg Intake: Oral 600 540 300 Output: Urine 350 Other: Voiding Method Toilet # Voids 3 - Constitutional General appearance: Present: cooperative, no acute distress, obese - EENT Eyes: Present: anicteric sclerae, EOMI - Respiratory Respiratory: bilateral: CTA - Neurologic Neurologic: Present: CNII-XII intact - Musculoskeletal Musculoskeletal: Present: generalized weakness - Psychiatric Psychiatric: Present: A&O x's 3, appropriate affect, intact judgment & insight - Labs CBC & Chem 7: 11/11/19 06:55 11/11/19 06:55 Labs: Abnormal Lab Results - Last 24 Hours (Table) 11/11/19 11/11/19 Range/Units 06:55 06:55 WBC 11.2 H (3.8-10.6) k/uL RBC 2.21 L (4.30-5.90) m/uL Hgb 8.2 L (13.0-17.5) gm/dL Hct 28.8 L (39.0-53.0) % MCV 130.8 H (80.0-100.0) fL MCH 37.1 H (25.0-35.0) pg MCHC 28.4 L (31.0-37.0) g/dL RDW 19.7 H (11.5-15.5) % Plt Count 1096 H* (150-450) k/uL Neutrophils # 8.1 H (1.3-7.7) k/uL Monocytes # 1.1 H (0-1.0) k/uL Macrocytosis Marked A Sodium 133 L (137-145) mmol/L BUN 26 H (9-20) mg/dL Creatinine 1.91 H (0.66-1.25) mg/dL Microbiology - Last 24 Hours (Table) 11/07/19 22:14 Blood Culture - Preliminary Blood No Growth after 72 hours Assessment and Plan (1) ET (essential thrombocythemia) Narrative/Plan: Hydrea was just recently held due to progressive anemia. Continue off Hydrea. Continue anticoagulant and antiplatelet therapy as prescribed. Started on Agrylin 11/08. Rx sent to pt pharmacy as he is going to continue on it for now F/U appt in chart Status: Chronic Priority: Medium Code(s): D47.3 - ESSENTIAL (HEMORRHAGIC) THROMBOCYTHEMIA SNOMED Code(s): 033841496 Plan: Nephrology consult reviewed, discussed briefly with Nephrology.
--- NOTE | 2019-11-11 19:54 | CONS ---
CONSULTATION REASON FOR CONSULT: Renal failure. HISTORY OF PRESENT ILLNESS: Patient is an 83-year-old male with history of essential thrombocytosis. The patient also has a history of chronic kidney disease with previous creatinine as low as 1.2 and 1.0 mg/dL in August of 2019. He was admitted to the hospital on 11/07/2019 with complaints of chest pain. The patient had increased weakness and decreased oral intake prior to admission. He was maintained on hydroxyurea and was noted to have some degree of myelosuppression, including the other cell lines. He was recently switched to Agrylin, and Hydrea remains on hold. He is also maintained on Eliquis. Patient's blood pressure has been around 133 to 100 mmHg systolic with a low blood pressure at 92 mmHg for systolic on 11/09/2019. He is currently voiding on his own. Patient is maintained on a very small dose of Lasix 20 mg p.o. daily. He is not on any other nephrotoxic medications. He has not received IV contrast. Patient's chest x-ray shows evidence of right lower lobe infiltrate and effusion, and he is currently being treated for pneumonia. Serum creatinine was 1.5 to 1.6 on admission. It is up to 1.9 now. PAST MEDICAL HISTORY: Essential thrombocytosis, hypertension, coronary artery disease, CKD stage 2 to 3, history of paroxysmal atrial fibrillation, history of multilobar PE, history of CVA/TIA, dementia, gastroesophageal reflux disease and diverticulitis. 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 History of rheumatic fever during childhood. PAST SURGICAL HISTORY: Adenoidectomy, right nephrectomy for organ donation, bilateral hip arthroplasty, left hand surgery, uvuloplasty, carotid stent placement, cataract surgery. SOCIAL HISTORY: Positive for patient being a former smoker. No history of drug abuse or alcohol abuse. MEDICATIONS: Medications at home prior to admission included Zyloprim, hydralazine, Neurontin, pantoprazole, aspirin, Lipitor, Hydroxyurea, Eliquis, Lopressor, Exelon patch. ALLERGIES: ALLERGIES include BEE VENOM. REVIEW OF SYSTEMS: As per HPI. Other systems negative. PHYSICAL EXAMINATION: Patient is comfortable, awake, not in any acute distress. Blood pressure was 100/57, heart rate 117 per minute. He is afebrile. EXAMINATION OF THE HEART: S1 and S2. EXAMINATION OF LUNGS: Decreased breath sounds at bases. ABDOMEN: Soft, non-tender. Examination of lower extremities shows no significant edema. LUNCHROOM ATTENDANT exam is grossly intact. LABS: Labs show sodium of 136, potassium 5.0, serum creatinine 1.9 yesterday. I do not have any labs from today. Hemoglobin was 8.9 and 8.2 g/dL. Platelet count 1096, currently decreasing. White cell count 11.2. I do not have a urinalysis. ASSESSMENT: 1. Acute kidney injury, most likely acute tubular necrosis, associated with some degree of hypoperfusion, as blood pressure had been on the lower side with systolic in the 90-95 range on 11/09/2019. I will decrease the dose of hydralazine. We will check a urinalysis and check a post-void residual to rule out underlying urine retention. I will hold off on the Lasix as well for now. 2. History of pulmonary embolism, maintained on Eliquis. 3. Essential thrombocytosis, currently off of Hydrea secondary to myelosuppression, maintained on aspirin and Agrylin. 4. Neuropathy. 5. Right lower lung pneumonia, maintained on antibiotics. PLAN: Discontinue hydralazine. Add parameters for Lopressor. Hold Lasix for now. Check UA. Check post-void residual. Repeat labs today and in a.m. Thank you for this consultation. Will continue to follow the patient with you during his hospitalization. MMJ CARLOSL / JOHANNY: [id number] /
[2019-11-11 19:58] LABS: Hemoglobin A1C 4.8 % (4.0-6.0)
== END 2019-11-11 16:38 | disposition home health service (06) | DRG 291 ==
LOC: EC 18:42 → 3SCARD 21:35
PROVIDERS: ADMIT Internal Medicine; ATTEND Internal Medicine
DX: I13.0 Hypertensive heart and chronic kidney disease with heart failure and stage 1 through stage 4 chronic kidney disease, or unspecified chronic kidney disease (principal); I50.31 Acute diastolic (congestive) heart failure; J18.9 Pneumonia, unspecified organism; J96.01 Acute respiratory failure with hypoxia; N17.9 Acute kidney failure, unspecified; D47.3 Essential (hemorrhagic) thrombocythemia; D75.89 Other specified diseases of blood and blood-forming organs; F01.50 Vascular dementia, unspecified severity, without behavioral disturbance, psychotic disturbance, mood disturbance, and anxiety; G62.9 Polyneuropathy, unspecified; I25.10 Atherosclerotic heart disease of native coronary artery without angina pectoris; Z86.711 Personal history of pulmonary embolism; Z79.01 Long term (current) use of anticoagulants; I48.0 Paroxysmal atrial fibrillation; I65.29 Occlusion and stenosis of unspecified carotid artery; M47.812 Spondylosis without myelopathy or radiculopathy, cervical region; N18.3 Chronic kidney disease, stage 3 (moderate); Z90.5 Acquired absence of kidney; R29.6 Repeated falls; D53.9 Nutritional anemia, unspecified; E78.2 Mixed hyperlipidemia; R79.1 Abnormal coagulation profile; S22.41XD Multiple fractures of ribs, right side, subsequent encounter for fracture with routine healing; W19.XXXD Unspecified fall, subsequent encounter; Z91.81 History of falling; H53.8 Other visual disturbances; H91.93 Unspecified hearing loss, bilateral; M10.9 Gout, unspecified; R32 Unspecified urinary incontinence; R35.1 Nocturia; G89.29 Other chronic pain; M19.90 Unspecified osteoarthritis, unspecified site; F41.9 Anxiety disorder, unspecified; F32.9 Major depressive disorder, single episode, unspecified; Z79.51 Long term (current) use of inhaled steroids; Z79.82 Long term (current) use of aspirin; Z79.899 Other long term (current) drug therapy; Z82.3 Family history of stroke; Z82.49 Family history of ischemic heart disease and other diseases of the circulatory system; Z82.71 Family history of polycystic kidney; Z83.3 Family history of diabetes mellitus; Z85.828 Personal history of other malignant neoplasm of skin; Z87.19 Personal history of other diseases of the digestive system; Z86.19 Personal history of other infectious and parasitic diseases; Z86.73 Personal history of transient ischemic attack (TIA), and cerebral infarction without residual deficits; Z87.891 Personal history of nicotine dependence; Z96.643 Presence of artificial hip joint, bilateral; Z98.41 Cataract extraction status, right eye; Z96.1 Presence of intraocular lens; Z90.89 Acquired absence of other organs; Z91.030 Bee allergy status
CPT/HCPCS: 36415; 71046; 78582; 80048; 80053; 81003; 82607; 82746; 83010; 83036; 83615; 83735; 83880; 84484; 85025; 85045; 85379; 85610; 85730; 87040; 93005; 93970; 94640; 94760; 96365; 96375; 99285

== ENCOUNTER 2019-11-17 16:10 | Emergency (ER) | payer MEDICARE ==
[2019-11-17] MEDS ORDERED: diphenhydrAMINE 50 MG/ML 1 ML VIAL IVP STA (16:30)
[2019-11-17] MEDS ORDERED: FAMOTIDINE 20 MG/2 ML VIAL IV STA (16:31)
[2019-11-17] MEDS ORDERED: methylPREDNISolone SOD SUCCI 125 MG/2 ML VIAL IV STA (16:31)
[2019-11-17 16:59] LABS: Albumin 3.5 g/dL (3.5-5.0); Calcium 9.3 mg/dL (8.4-10.2); Potassium 4.9 mmol/L (3.5-5.1); Total Bilirubin 1.1 mg/dL (0.2-1.3); Total Protein 6.1 g/dL (6.3-8.2)
[2019-11-17 17:00] LABS: INR 1.3 (<1.2); Partial Thromboplastin Time 29.4 sec (22.0-30.0); Prothrombin Time 12.6 sec (9.0-12.0)
[2019-11-17 17:01] VITALS: BP 141/82
[2019-11-17 17:12] LABS: Anisocytosis Moderate; HGB 9.5 gm/dL (13.0-17.5); Hypochromasia Marked; MCH 37.6 pg (25.0-35.0); MCHC 29.8 g/dL (31.0-37.0); MCV 126.2 fL (80.0-100.0); Macrocytosis Marked; Mean Platelet Volume 8.3; Poikilocytosis Slight; RBC 2.54 m/uL (4.30-5.90); RDW 20.7 % (11.5-15.5)
--- NOTE | 2019-11-17 17:13 | XR ---
EXAMINATION TYPE: XR chest 2V DATE OF EXAM: 11/17/2019 COMPARISON: Chest x-ray November 07, 2019. HISTORY: Difficulty in breathing. TECHNIQUE: Frontal and lateral views of the chest are obtained. FINDINGS: There is persistent cardiomegaly. There is persistent central vascular congestion and smal l tiny bilateral pleural effusions. Persistent multifocal airspace opacities. The osseous structure s remain demineralized. Old fracture distal right clavicle redemonstrated. IMPRESSION: Cardiomegaly with small to tiny bilateral pleural effusions and central vascular congest ion. Multifocal areas of acute infiltrate and/or edema redemonstrated. No significant change from mos t recent x-ray. Correlate clinically.
--- NOTE | 2019-11-17 17:13 | ED ---
Allergic Reaction HPI - General Chief complaint: Allergic Reaction Stated complaint: Allergic Reaction Time Seen by Provider: 11/17/19 16:15 Source: patient Mode of arrival: ambulatory Limitations: no limitations - History of Present Illness Initial Comments: Patient is an 83-year-old male who presents emergency department with reported shortness of breath after he was stung by a bee. Patient states that he was outside when he On the Left Ankle by One Bee. States That He Has a Significant Reaction to Bee Stings and Therefore They Administered His EpiPen and Brought Him into the Emergency Department for Evaluation. Patient Reports to Shortness of Breath and Palpitations. Patient does have some shortness of breath at baseline per the . He has a history of congestive heart failure, PEs and is on anticoagulation. Patient was also recently hospitalized for pneumonia. Reports that he was feeling fine today until he was stung by the bee. He developed a localized reaction. Denies a sensation that his airway is closing off. No other alleviating, precipitating or modifying factors - Related Data Home Medications Medication Instructions Recorded Confirmed allopurinoL [Zyloprim] 300 mg PO DAILY 09/01/13 11/07/19 hydrALAZINE HCL [Apresoline] 25 mg PO AC-TID 09/01/13 11/07/19 EPINEPHrine (Auto Inject) [Epipen] 0.3 mg IM ONCE PRN 01/06/17 11/07/19 Gabapentin [Neurontin] 300 mg PO BID 06/13/17 11/07/19 Pantoprazole Sodium [Protonix] 40 mg PO AC-BRKFST 08/04/17 11/07/19 Rivastigmine 9.5MG/24Hr Patch 1 patch TRANSDERM Q24HR 05/29/19 11/07/19 [Exelon 9.5MG/24Hr Patch] Atorvastatin Calcium [Lipitor] 20 mg PO DAILY 08/14/19 11/07/19 Metoprolol Tartrate [Lopressor] 25 mg PO BID 11/07/19 11/07/19 Previous Rx's Medication Instructions Recorded Anagrelide [Agrylin] 0.5 mg PO DAILY #30 capsule 11/10/19 Apixaban [Eliquis] 2.5 mg PO BID #60 tablet 11/11/19 Aspirin 81 mg PO BID chew 11/11/19 Levofloxacin [Levaquin] 250 mg PO Q24H #7 tab 11/11/19 EPINEPHrine (Auto Inject) [Epipen] 0.3 mg IM ONCE PRN #2 pen 11/17/19 predniSONE [Deltasone] 20 mg PO BID #6 tab 11/17/19 Allergies Allergy/AdvReac Type Severity Reaction Status Date / Time venom-honey bee Allergy Anaphylaxis Verified 11/17/19 16:14 [bee venom (honey bee)] Review of Systems ROS Statement: Those systems with pertinent positive or pertinent negative responses have been documented in the HPI. ROS Other: All systems not noted in ROS Statement are negative. Past Medical History Past Medical History: Cancer, CVA/TIA, Dementia, Eye Disorder, GERD/Reflux, Hyperlipidemia, Hypertension, Osteoarthritis (OA), Renal Disease Additional Past Medical History / Comment(s): Hx. 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 Syncope. History of Any Multi-Drug Resistant Organisms: None Reported Past Surgical History: Adenoidectomy, Hernia Repair, Joint Replacement, Orthopedic Surgery, Tonsillectomy Additional Past Surgical History / Comment(s): R kidney donor, kiesha hip replacement, L hand trigger finger,uvuloplasty, left carotid stent, bilateral inguinal hernia repair, deviated septum repair, colonoscopy, R cataract removal with lens; Pain procedures. Past Anesthesia/Blood Transfusion Reactions: No Reported Reaction Past Psychological History: No Psychological Hx Reported Smoking Status: Former smoker Past Alcohol Use History: Daily Past Drug Use History: None Reported - Past Family History Father Family Medical History: CVA/TIA Additional Family Medical History / Comment(s): Father at 80 from stroke Mother Family Medical History: No Reported History Additional Family Medical History / Comment(s): Mother at age 55 from polycystic kidney disease. Brother(s) Additional Family Medical History / Comment(s): Patient has 1 brother with multiple medical problems including diabetes. Sister(s) Family Medical History: Renal Disease Additional Family Medical History / Comment(s): Patient has one sister that at age 60 from kidney failure due to polycystic kidney disease. Daughter(s) Family Medical History: No Reported History Additional Family Medical History / Comment(s): Patient has one daughter with no major medical problems. Son(s) Additional Family Medical History / Comment(s): Patient has 5 sons. 2 at premature . One while skiing from a myocardial infarction at age 32. One son is alive with no major medical problems. General Exam Limitations: no limitations General appearance: alert, in no apparent distress Head exam: Present: atraumatic, normocephalic, normal inspection Eye exam: Present: normal appearance, PERRL, EOMI. Absent: scleral icterus, conjunctival injection, periorbital swelling ENT exam: Present: normal exam, mucous membranes moist Neck exam: Present: normal inspection. Absent: tenderness, meningismus, lymphadenopathy Respiratory exam: Present: decreased breath sounds. Absent: respiratory distress, wheezes, rales, rhonchi, stridor Cardiovascular Exam: Present: normal rhythm, tachycardia, normal heart sounds. Absent: systolic murmur, diastolic murmur, rubs, gallop, clicks GI/Abdominal exam: Present: soft, normal bowel sounds. Absent: distended, tenderness, guarding, rebound, rigid Extremities exam: Present: normal inspection, full ROM, normal capillary refill. Absent: tenderness, pedal edema, joint swelling, calf tenderness Back exam: Present: normal inspection Neurological exam: Present: alert, oriented X3, CN II-XII intact Psychiatric exam: Present: normal affect, normal mood Skin exam: Present: warm, dry, intact, other (mild red left lateral ankle). Absent: rash Course Vital Signs 11/17/19 11/17/19 11/17/19 16:12 17:00 18:51 Temperature 98 F 97.9 F Pulse Rate 110 H 99 98 Respiratory 18 17 14 Rate Blood Pressure 125/55 141/82 141/82 O2 Sat by Pulse 90 L 96 96 Oximetry Medical Decision Making - Medical Decision Making Upon arrival the patient was placed into room 1. He is placed on continuous pulse ox and cardiac monitoring. 12-lead EKG was performed which demonstrates the patient is in A. fib which she has a history of. He is slightly tachycardic. IV is established. Patient was given a dose of Benadryl, prednisone and Pepcid. Laboratory studies were conducted and a chest x-ray was performed as the patient does have underlying lung conditions. Laboratory studies are remarkable for a white count of 16.6. Platelets of 1621. BNP elevated at 11,900. Chest x-ray demonstrates small to tiny bilateral pleural effusions and central vascular congestion. No significant change from most recent x-ray. Patient states that he was feeling well prior to the sting. Patient reports that he is now resting comfortably. At this time he will be discharged home with a prescription for prednisone and an EpiPen. Patient is to continue taking Benadryl as directed. He has an appointment with Dr. Moreno in the morning. I recommend that he follow-up with his plant reliability engineer in regards to his chronic respiratory insufficiency. Patient was in agreement with this plan and he was discharged home in stable condition - Lab Data Result diagrams: 11/17/19 16:41 11/17/19 16:41 Lab Results 11/17/19 11/17/19 11/17/19 Range/Units 16:41 16:41 16:41 WBC 16.6 H (3.8-10.6) k/uL RBC 2.54 L (4.30-5.90) m/uL Hgb 9.5 L (13.0-17.5) gm/dL Hct 32.0 L (39.0-53.0) % MCV 126.2 H (80.0-100.0) fL MCH 37.6 H (25.0-35.0) pg MCHC 29.8 L (31.0-37.0) g/dL RDW 20.7 H (11.5-15.5) % Plt Count 1621 H* (150-450) k/uL Neutrophils % (Manual) 63 % Band Neuts % (Manual) 3 % Lymphocytes % (Manual) 16 % Monocytes % (Manual) 11 % Eosinophils % (Manual) 1 % Metamyelocytes % 3 % Myelocytes % 5 % Neutrophils # (Manual) 10.90 H (1.3-7.7) k/uL Lymphocytes # (Manual) 2.66 (1.0-4.8) k/uL Monocytes # (Manual) 1.83 H (0-1.0) k/uL Eosinophils # (Manual) 0.17 (0-0.7) k/uL Metamyelocytes # (Man) 0.50 H (0) k/uL Myelocytes # (Manual) 0.83 H (0) k/uL Nucleated RBCs 1 H (0-0) /100 WBC Manual Slide Review Performed Polychromasia Present Hypochromasia Marked Poikilocytosis Slight Anisocytosis Moderate Macrocytosis Marked A PT 12.6 H (9.0-12.0) sec INR 1.3 H (<1.2) APTT 29.4 (22.0-30.0) sec Sodium 138 (137-145) mmol/L Potassium 4.9 (3.5-5.1) mmol/L Chloride 110 H (98-107) mmol/L Carbon Dioxide 21 L (22-30) mmol/L Anion Gap 7 mmol/L BUN 30 H (9-20) mg/dL Creatinine 1.65 H (0.66-1.25) mg/dL Est GFR (CKD-EPI)AfAm 44 (>60 ml/min/1.73 sqM) Est GFR (CKD-EPI)NonAf 38 (>60 ml/min/1.73 sqM) Glucose 108 H (74-99) mg/dL Calcium 9.3 (8.4-10.2) mg/dL Total Bilirubin 1.1 (0.2-1.3) mg/dL AST 34 (17-59) U/L ALT 10 (4-49) U/L Alkaline Phosphatase 65 (38-126) U/L Troponin I (0.000-0.034) ng/mL NT-Pro-B Natriuret Pep pg/mL Total Protein 6.1 L (6.3-8.2) g/dL Albumin 3.5 (3.5-5.0) g/dL 11/17/19 11/17/19 Range/Units 16:41 16:41 WBC (3.8-10.6) k/uL RBC (4.30-5.90) m/uL Hgb (13.0-17.5) gm/dL Hct (39.0-53.0) % MCV (80.0-100.0) fL MCH (25.0-35.0) pg MCHC (31.0-37.0) g/dL RDW (11.5-15.5) % Plt Count (150-450) k/uL Neutrophils % (Manual) % Band Neuts % (Manual) % Lymphocytes % (Manual) % Monocytes % (Manual) % Eosinophils % (Manual) % Metamyelocytes % % Myelocytes % % Neutrophils # (Manual) (1.3-7.7) k/uL Lymphocytes # (Manual) (1.0-4.8) k/uL Monocytes # (Manual) (0-1.0) k/uL Eosinophils # (Manual) (0-0.7) k/uL Metamyelocytes # (Man) (0) k/uL Myelocytes # (Manual) (0) k/uL Nucleated RBCs (0-0) /100 WBC Manual Slide Review Polychromasia Hypochromasia Poikilocytosis Anisocytosis Macrocytosis PT (9.0-12.0) sec INR (<1.2) APTT (22.0-30.0) sec Sodium (137-145) mmol/L Potassium (3.5-5.1) mmol/L Chloride (98-107) mmol/L Carbon Dioxide (22-30) mmol/L Anion Gap mmol/L BUN (9-20) mg/dL Creatinine (0.66-1.25) mg/dL Est GFR (CKD-EPI)AfAm (>60 ml/min/1.73 sqM) Est GFR (CKD-EPI)NonAf (>60 ml/min/1.73 sqM) Glucose (74-99) mg/dL Calcium (8.4-10.2) mg/dL Total Bilirubin (0.2-1.3) mg/dL AST (17-59) U/L ALT (4-49) U/L Alkaline Phosphatase (38-126) U/L Troponin I <0.012 (0.000-0.034) ng/mL NT-Pro-B Natriuret Pep 90356 pg/mL Total Protein (6.3-8.2) g/dL Albumin (3.5-5.0) g/dL - EKG Data EKG Comments: EKG demonstrates A. fib with a rapid ventricular response of 106. QRS 90. QTC of 520. Significant baseline artifact in V1. No acute ST segment elevation or depression Disposition Clinical Impression: Allergic reaction to insect sting Disposition: HOME SELF-CARE Condition: Stable Instructions (If sedation given, give patient instructions): Insect Bite or Sting (ED) Additional Instructions: Please take 50 mg of Benadryl every 6 hours. Take the Prednisone as directed starting tomorrow. Follow up with Dr. Moreno tomorrow. Return to the emergency room for any new or worsening symptoms Prescriptions: predniSONE [Deltasone] 20 mg PO BID #6 tab EPINEPHrine (Auto Inject) [Epipen] 0.3 mg IM ONCE PRN #2 pen PRN Reason: Anaphylaxis Is patient prescribed a controlled substance at d/c from ED?: No Referrals: Laurita Sandra MD [Primary Care Provider] - 1-2 days Kev Moreno MD [Family Provider] - 1-2 days Time of Disposition: 18:30
[2019-11-17 17:26] LABS: Platelet Count 1621 k/uL (150-450)
[2019-11-17 17:29] LABS: Band Neutrophils % 3 %; Eosinophils # (M) 0.17 k/uL (0-0.7); Lymphocytes # (M) 2.66 k/uL (1.0-4.8); Metamyelocytes % 3 %; Monocytes # (M) 1.83 k/uL (0-1.0); Myelocytes # (M) 0.83 k/uL (0); Myelocytes % 5 %; Neutrophils % (M) 63 %; Nucleated Red Blood Cells 1 /100 WBC (0-0); Total Cells Counted 200; WBC 16.6 k/uL (3.8-10.6)
[2019-11-17 17:30] LABS: Polychromasia Present
[2019-11-17 18:52] VITALS: PULSE 98; RESP 14; TEMP 97.9
== END 2019-11-17 18:50 | disposition home or self-care (01) ==
LOC: EC 16:10
DX: T63.441A Toxic effect of venom of bees, accidental (unintentional), initial encounter (principal); I11.0 Hypertensive heart disease with heart failure; I50.9 Heart failure, unspecified; I48.91 Unspecified atrial fibrillation; J90 Pleural effusion, not elsewhere classified; R79.89 Other specified abnormal findings of blood chemistry; R09.89 Other specified symptoms and signs involving the circulatory and respiratory systems; R06.89 Other abnormalities of breathing; K21.9 Gastro-esophageal reflux disease without esophagitis; E78.5 Hyperlipidemia, unspecified; M10.9 Gout, unspecified; F03.90 Unspecified dementia, unspecified severity, without behavioral disturbance, psychotic disturbance, mood disturbance, and anxiety; Z79.01 Long term (current) use of anticoagulants; Z79.899 Other long term (current) drug therapy; Z87.891 Personal history of nicotine dependence; Z96.643 Presence of artificial hip joint, bilateral; Z86.73 Personal history of transient ischemic attack (TIA), and cerebral infarction without residual deficits; Z85.828 Personal history of other malignant neoplasm of skin; Z86.711 Personal history of pulmonary embolism; Z91.030 Bee allergy status
CPT/HCPCS: 99285; 96374; 96375 ×2; 36415; 93005; 83880; 80053; 84484; 85025; 85610; 85730; 71046; J1200; J2930

== ENCOUNTER → 2019-11-25 | Outpatient (CLI) | payer MEDICARE ==
--- NOTE | 2019-11-25 15:00 | US ---
EXAMINATION TYPE: US chest DATE OF EXAM: 11/25/2019 COMPARISON: Chest radiograph 11/17/2019 and 11/20/2019. CLINICAL HISTORY: J90 Pleural Effusion. Tiny effusions seen on Nov 16 TECHNIQUE: Targeted ultrasound of the posterior lower bilateral EXAM MEASUREMENTS: Right Pleural Effusion pocket size: 0 cm Left Pleural Effusion pocket size: 0 cm Right side NOT marked for possible thoracentesis outside the dept. Left side NOT marked for possible thoracentesis outside the dept. IMPRESSIONS: No pleural effusion bilaterally.
== END | disposition home or self-care (01) ==
LOC: RADUSWWP 12:24
PROVIDERS: ATTEND Internal Medicine Critical Care Medicine
DX: J90 Pleural effusion, not elsewhere classified (principal)
CPT/HCPCS: 76604

== ENCOUNTER 2020-02-07 04:15 | Inpatient (IN) | payer MEDICARE ==
[2020-02-07] MEDS ORDERED: DILTIAZEM DRIP BOLUS FROM BAG 1 MG SOLN IV ONE (04:29)
[2020-02-07 04:45] LABS: Anisocytosis Moderate; HCT 41.3 % (39.0-53.0); HGB 12.5 gm/dL (13.0-17.5); Hypochromasia Moderate; MCH 27.3 pg (25.0-35.0); MCHC 30.4 g/dL (31.0-37.0); MCV 90.1 fL (80.0-100.0); Macrocytosis Slight; Mean Platelet Volume 9.5; Microcytosis Slight; Platelet Count 737 k/uL (150-450); Poikilocytosis Slight; RBC 4.59 m/uL (4.30-5.90); RDW 22.5 % (11.5-15.5)
[2020-02-07] MEDS ORDERED: DILTIAZEM 125 MG in SODIUM CHLORIDE 0.9% 100 ML IV SCH (04:45)
--- NOTE | 2020-02-07 04:51 | XR ---
EXAM: XR Chest, 1 View CLINICAL HISTORY: Arrhythmia. TECHNIQUE: Frontal view of the chest. COMPARISON: 11/20/2019. FINDINGS: Lungs: Mild interstitial prominence at the lung bases. Pleural space: Unremarkable. No pneumothorax. Heart: Cardiomediastinal silhouette is stable. Mediastinum: See above. Bones/joints: Osteopenia. Other findings: Mild hypoaeration. IMPRESSION: 1. Appearance of the chest is stable and unchanged from 11/20/2019. 2. Hypoaeration. 3. Minimal interstitial prominence of the lung bases again noted of uncertain significance. Atypical pneumonia cannot be entirely excluded.
[2020-02-07 04:53] LABS: INR 1.3 (<1.2); Partial Thromboplastin Time 33.2 sec (22.0-30.0); Prothrombin Time 13.4 sec (9.0-12.0)
[2020-02-07 04:56] LABS: Albumin 3.8 g/dL (3.5-5.0); Calcium 9.5 mg/dL (8.4-10.2); Potassium 4.8 mmol/L (3.5-5.1); Total Bilirubin 1.2 mg/dL (0.2-1.3); Total Protein 6.8 g/dL (6.3-8.2)
--- NOTE | 2020-02-07 05:06 | ED ---
Chest Pain HPI - General Chief Complaint: Chest Pain Stated Complaint: Chest Pain Time Seen by Provider: 02/07/20 04:17 Source: patient, EMS Mode of arrival: EMS Limitations: no limitations - History of Present Illness Initial Comments: This patient is a 84-year-old man presenting with substernal chest pain. The patient stated that at times he also felt his heart beating faster. The patient at times felt a little short of breath. When the symptoms did not resolve the patient's called EMS and patient was brought here for evaluation. He denie s diaphoresis, nausea or vomiting. No syncope. MD Complaint: chest pain -: hour(s) Onset: during rest, awoke with symptoms Pain Location: substernal Pain Radiation: none Severity: mild Quality: tightness Consistency: constant Improves With: nothing Worsens With: nothing Treatments Prior to Arrival: none - Related Data Home Medications Medication Instructions Recorded Confirmed allopurinoL [Zyloprim] 300 mg PO DAILY 09/01/13 02/07/20 hydrALAZINE HCL [Apresoline] 25 mg PO AC-TID 09/01/13 02/07/20 EPINEPHrine (Auto Inject) [Epipen] 0.3 mg IM ONCE PRN 01/06/17 02/07/20 Gabapentin [Neurontin] 300 mg PO BID 06/13/17 02/07/20 Pantoprazole Sodium [Protonix] 40 mg PO AC-BRKFST 08/04/17 02/07/20 Atorvastatin Calcium [Lipitor] 20 mg PO DAILY 08/14/19 02/07/20 Metoprolol Tartrate [Lopressor] 25 mg PO BID 11/07/19 02/07/20 Anagrelide HCl 1 mg PO BID 02/07/20 02/07/20 Aspirin 81 mg PO DAILY 02/07/20 02/07/20 Donepezil HCl [Aricept] 5 mg PO HS 02/07/20 02/07/20 Furosemide [Lasix] 40 mg PO DAILY 02/07/20 02/07/20 Previous Rx's Medication Instructions Recorded Apixaban [Eliquis] 2.5 mg PO BID #60 tablet 11/11/19 Allergies Allergy/AdvReac Type Severity Reaction Status Date / Time venom-honey bee Allergy Anaphylaxis Verified 02/07/20 07:57 [bee venom (honey bee)] Review of Systems ROS Statement: Those systems with pertinent positive or pertinent negative responses have been documented in the HPI. ROS Other: All systems not noted in ROS Statement are negative. Constitutional: Denies: fever, chills Respiratory: Reports: as per HPI, cough, dyspnea Cardiovascular: Reports: as per HPI, chest pain, palpitations. Denies: orthopnea, edema, syncope Gastrointestinal: Denies: abdominal pain, nausea, vomiting, diarrhea Genitourinary: Denies: dysuria, hematuria, testicular pain Musculoskeletal: Denies: back pain Skin: Denies: rash Neurological: Denies: headache, weakness, numbness EKG Findings - EKG Results: EKG: interpreted by JAMEED, normal axis EKG shows: atrial fibrillation (Rate approximately 141 bpm) Past Medical History Past Medical History: Cancer, CVA/TIA, Dementia, Eye Disorder, GERD/Reflux, Hyperlipidemia, Hypertension, Osteoarthritis (OA), Renal Disease Additional Past Medical History / Comment(s): Hx. 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 Syncope. History of Any Multi-Drug Resistant Organisms: None Reported Past Surgical History: Adenoidectomy, Hernia Repair, Joint Replacement, Ort hopedic Surgery, Tonsillectomy Additional Past Surgical History / Comment(s): R kidney donor, kiesha hip replacement, L hand trigger finger,uvuloplasty, left carotid stent, bilateral inguinal hernia repair, deviated septum repair, colonoscopy, R cataract removal with lens; Pain procedures. Past Anesthesia/Blood Transfusion Reactions: No Reported Reaction Past Psychological History: No Psychological Hx Reported Smoking Status: Former smoker Past Alcohol Use History: Daily Past Drug Use History: None Reported - Past Family History Father Family Medical History: CVA/TIA Additional Family Medical History / Comment(s): Father at 80 from stroke Mother Family Medical History: No Reported History Additional Family Medical History / Comment(s): Mother at age 55 from polycystic kidney disease. Brother(s) Additional Family Medical History / Comment(s): Patient has 1 brother with multiple medical problems including diabetes. Sister(s) Family Medical History: Renal Disease Additional Family Medical History / Comment(s): Patient has one sister that at age 60 from kidney failure due to polycystic kidney disease. Daughter(s) Family Medical History: No Reported History Additional Family Medical History / Comment(s): Patient has one daughter with no major medical problems. Son(s) Additional Family Medical History / Comment(s): Patient has 5 sons. 2 at premature . One while skiing from a myocardial infarction at age 32. One son is alive with no major medical problems. General Exam Limitations: no limitations General appearance: alert, in no apparent distress Head exam: Present: atraumatic, normocephalic Eye exam: Present: normal appearance. Absent: scleral icterus, conjunctival injection ENT exam: Present: mucous membranes dry Neck exam: Present: normal inspection Respiratory exam: Present: normal lung sounds bilaterally. Absent: respiratory distress, wheezes, rales, rhonchi, stridor Cardiovascular Exam: Present: tachycardia (Rate approximately 116 at exam), irregular rhythm, normal heart sounds. Absent: systolic murmur, diastolic murmur, rubs, gallop GI/Abdominal exam: Present: soft. Absent: distended, tenderness, guarding, rebound, rigid, mass Extremities exam: Present: normal inspection, normal capillary refill. Absent: pedal edema, calf tenderness Back exam: Present: normal inspection Neurological exam: Present: alert Skin exam: Present: warm, dry, intact, normal color. Absent: rash Course Vital Signs 02/07/20 02/07/20 02/07/20 04:21 04:50 06:26 Temperature Pulse Rate 131 H 112 H 120 H Pulse Rate [ Right Pulse Oximetery] Respiratory 20 18 Rate Blood Pressure 115/75 108/55 Blood Pressure [Left Arm] O2 Sat by Pulse 94 L 95 Oximetry 02/07/20 02/07/20 07:21 08:05 Temperature 98.2 F 98.4 F Pulse Rate 111 H Pulse Rate [ 107 H Right Pulse Oximetery] Respiratory 18 19 Rate Blood Pressure 110/72 Blood Pressure 121/72 [Left Arm] O2 Sat by Pulse 95 [address] [facility] Patient is an 84-year-old man with previous history of atrial fibrillation who presents with atrial fibrillation and rapid ventricular rate. Patient started on IV Cardizem and case is discussed with the admitting physician. The rate has decreased somewhat from mom anywhere from 130s to 140s he is in the neighborhood of 110. He does state he is feeling better. Critical Care Time Critical Care Time: Yes (35 minutes) Disposition Clinical Impression: Atrial fibrillation with rapid ventricular response Disposition: ADMITTED IP TO THIS HOSP Condition: Poor
[2020-02-07 06:15] LABS: Band Neutrophils % 7 %; Eosinophils # (M) 0.21 k/uL (0-0.7); Metamyelocytes # (M) 0.41 k/uL (0); Metamyelocytes % 2 %; Myelocytes # (M) 0.21 k/uL (0); Myelocytes % 1 %; Neutrophils % (M) 73 %; Nucleated Red Blood Cells 1 /100 WBC (0-0); Total Cells Counted 200
[2020-02-07 06:16] LABS: Large Platelets Present; Lymphocytes # (M) 2.26 k/uL (1.0-4.8); Monocytes # (M) 1.44 k/uL (0-1.0); WBC 20.5 k/uL (3.8-10.6)
[2020-02-07 06:19] LABS: Polychromasia Present
[2020-02-07] MEDS ORDERED: NITROGLYCERIN SL TABS 0.4 MG TAB SUBLINGUAL PRN (07:05)
[2020-02-07] MEDS ORDERED: METOPROLOL TARTRATE 50 MG TAB PO STA (08:26)
[2020-02-07] MEDS: ATORVASTATIN 20 MG TAB PO SCH (09:43)
[2020-02-07] MEDS: APIXABAN 2.5 MG TABLET PO SCH ×2 (09:43→19:46)
[2020-02-07] MEDS: ASPIRIN 81 MG PO SCH (09:43)
--- NOTE | 2020-02-07 11:35 | P.CRDCN ---
History of Present Illness Consult date: 02/07/20 History of present illness: CHIEF COMPLAINT: Chest pain, A. fib RVR HISTORY OF PRESENT ILLNESS: This is a 84-year-old male with a past medical history significant for hypertension, hyperlipidemia, carotid stenosis with stent placement, atrial fibrillation, and dementia. Patient states he follows with a towel inspector out of town but is unable to recall the name of the physician. We have been asked to see the patient in consultation for chest pain and A. fib with RVR. Patient examined this morning at the bedside. Patient presented to the emergency room with a chief complaint of chest pain. Patient states the chest pain started 2 or 3 days ago. He states the pain is worse with deep inspiration and any movement. He reports shortness of breath. He also reports a cough for the past few days. He denies being around anyone who has been diagnosed with Covid to his knowledge. EKG on admission revealed A. fib with RVR. The patient was started on a Cardizem drip at 5 mg an hour. DIAGNOSTICS: EKG reveals atrial fibrillation with RVR Chest xray possibility of atypical pneumonia Laboratory data: WBC 20.5. Hemoglobin 12.5. Platelet count 737. Sodium 139. Potassium 4.8. BUN 39. Creatinine 1.51. Magnesium 2.0. Troponin negative 2. TSH 2.180. Current home cardiac medications include Lasix 40 mg daily, metoprolol 25 mg twice a day, hydralazine 25 mg 3 times a day, Lipitor 29 g daily, aspirin 81 mg daily, Eliquis 2.5 mg twice a day. REVIEW OF SYSTEMS: At the time of my exam: CONSTITUTIONAL: Denies fever or chills. HEENT: Denies blurred vision, vision changes, or eye pain. Denies hemoptysis CARDIOVASCULAR: Reports pleuritic chest pain. Denies orthopnea, PND or palpitations RESPIRATORY: No shortness of breath. GASTROINTESTINAL: Denies abdominal pain. Denies nausea or vomiting. HEMATOLOGIC: Denies bleeding disorders. GENITOURINARY: Denies any blood in urine. SKIN: Denies pruitis. Denies rash. PHYSICAL EXAM: VITAL SIGNS: Reviewed. GENERAL: Well-developed in no acute distress. HEENT: Head is normocephalic. Pupils are equal, round. Sclerae anicteric. Mucous membranes of the mouth are moist. Neck supple. No JVD or thyromegaly LUNGS: Respirations even and unlabored. Lungs diminished bilaterally. HEART: Irregular rate and rhythm. S1 and S2 heard. ABDOMEN: Soft. Nondistended. Nontender. EXTREMITIES: Normal range of motion. No clubbing or cyanosis. Peripheral pulses intact. No lower extremity edema NEUROLOGIC: Awake and alert. Oriented x 2. ASSESSMENT: Chest pain, atypical. appears pleuritic and reproducible Paroxysmal atrial fibrillation with RVR, on long-term anticoagulation with Eliquis Carotid stenosis with previous stenting Hypertension Hyperlipidemia Dementia PLAN: Obtain 2-D echo to assess cardiac structure and function Resume Eliquis Resume home cardiac medications Increase metoprolol to 50mg twice a day Discontinue IV Cardizem Check patient for coronavirus Obtain d-dimer Further recommendations pending patient's course Nurse practitioner note has been reviewed by physician. Signing provider agrees with the documented findings, assessment, and plan of care. Past Medical History Past Medical History: Cancer, CVA/TIA, Dementia, Eye Disorder, GERD/Reflux, Hyperlipidemia, Hypertension, Osteoarthritis (OA), Renal Disease Additional Past Medical History / Comment(s): Hx. 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 Syncope. History of Any Multi-Drug Resistant Organisms: None Reported Past Surgical History: Adenoidectomy, Hernia Repair, Joint Replacement, Orthopedic Surgery, Tonsillectomy Additional Past Surgical History / Comment(s): R kidney donor, kiesha hip replacement, L hand trigger finger,uvuloplasty, left carotid stent, bilateral inguinal hernia repair, deviated septum repair, colonoscopy, R cataract removal with lens; Pain procedures. Past Anesthesia/Blood Transfusion Reactions: No Reported Reaction Past Psychological History: No Psychological Hx Reported Smoking Status: Former smoker Past Alcohol Use History: Daily Past Drug Use History: None Reported - Past Family History Father Family Medical History: CVA/TIA Additional Family Medical History / Comment(s): Father at 80 from stroke Mother Family Medical History: No Reported History Additional Family Medical History / Comment(s): Mother at age 55 from polycystic kidney disease. Brother(s) Additional Family Medical History / Comment(s): Patient has 1 brother with multiple medical problems including diabetes. Sister(s) Family Medical History: Renal Disease Additional Family Medical History / Comment(s): Patient has one sister that at age 60 from kidney failure due to polycystic kidney disease. Daughter(s) Family Medical History: No Reported History Additional Family Medical History / Comment(s): Patient has one daughter with no major medical problems. Son(s) Additional Family Medical History / Comment(s): Patient has 5 sons. 2 at premature . One while skiing from a myocardial infarction at age 32. One son is alive with no major medical problems. Medications and Allergies Home Medications Medication Instructions Recorded Confirmed Type allopurinoL [Zyloprim] 300 mg PO DAILY 09/01/13 02/07/20 History hydrALAZINE HCL [Apresoline] 25 mg PO AC-TID 09/01/13 02/07/20 History EPINEPHrine (Auto Inject) [Epipen] 0.3 mg IM ONCE PRN 01/06/17 02/07/20 History Gabapentin [Neurontin] 300 mg PO BID 06/13/17 02/07/20 History Pantoprazole Sodium [Protonix] 40 mg PO AC-BRKFST 08/04/17 02/07/20 History Atorvastatin Calcium [Lipitor] 20 mg PO DAILY 08/14/19 02/07/20 History Metoprolol Tartrate [Lopressor] 25 mg PO BID 11/07/19 02/07/20 History Apixaban [Eliquis] 2.5 mg PO BID #60 tablet 11/11/19 02/07/20 Rx Anagrelide HCl 1 mg PO BID 02/07/20 02/07/20 History Aspirin 81 mg PO DAILY 02/07/20 02/07/20 History Donepezil HCl [Aricept] 5 mg PO HS 02/07/20 02/07/20 History Furosemide [Lasix] 40 mg PO DAILY 02/07/20 02/07/20 History Allergies Allergy/AdvReac Type Severity Reaction Status Date / Time venom-honey bee Allergy Anaphylaxis Verified 02/07/20 07:57 [bee venom (honey bee)] Physical Exam Vitals: Vital Signs Temp Pulse Pulse Resp BP BP Pulse Ox 02/07/20 08:05 98.4 F 114 H 20 121/72 99 02/07/20 07:21 98.2 F 111 H 18 110/72 95 02/07/20 06:26 120 H 02/07/20 04:50 112 H 18 108/55 95 02/07/20 04:21 131 H 20 115/75 94 L Intake and Output 02/06/20 02/07/20 02/07/20 22:59 06:59 14:59 Other: # Voids 1 # Bowel Movements 1 Weight 63.503 kg Results 02/07/20 04:33 02/07/20 04:33 Cardiac Enzymes 02/07/20 02/07/20 02/07/20 Range/Units 04:33 04:33 08:30 AST 25 (17-59) U/L Troponin I <0.012 <0.012 (0.000-0.034) ng/mL Coagulation 02/07/20 Range/Units 04:33 PT 13.4 H (9.0-12.0) sec APTT 33.2 H (22.0-30.0) sec CBC 02/07/20 Range/Units 04:33 WBC 20.5 H (3.8-10.6) k/uL RBC 4.59 (4.30-5.90) m/uL Hgb 12.5 L (13.0-17.5) gm/dL Hct 41.3 (39.0-53.0) % Plt Count 737 H (150-450) k/uL Comprehensive Metabolic Panel 02/07/20 Range/Units 04:33 Sodium 139 (137-145) mmol/L Potassium 4.8 (3.5-5.1) mmol/L Chloride 112 H (98-107) mmol/L Carbon Dioxide 17 L (22-30) mmol/L BUN 39 H (9-20) mg/dL Creatinine 1.51 H (0.66-1.25) mg/dL Glucose 145 H (74-99) mg/dL Calcium 9.5 (8.4-10.2) mg/dL AST 25 (17-59) U/L ALT 13 (4-49) U/L Alkaline Phosphatase 112 (38-126) U/L Total Protein 6.8 (6.3-8.2) g/dL Albumin 3.8 (3.5-5.0) g/dL Current Medications Generic Name Dose Route Start Last Admin Trade Name Freq PRN Reason Stop Dose Admin Allopurinol 300 mg 02/08/20 09:00 Allopurinol 300 Mg Tab PO DAILY JS Anagrelide HCl 1 mg 02/07/20 21:00 Anagrelide 0.5 Mg Cap PO BID JS Apixaban 2.5 mg 02/07/20 09:00 02/07/20 09:43 Apixaban 2.5 Mg Tablet PO 2.5 mg BID JS Administration Aspirin 81 mg 02/07/20 09:00 02/07/20 09:43 Aspirin 81 Mg PO 81 mg DAILY JS Administration Atorvastatin Calcium 20 mg 02/07/20 09:00 02/07/20 09:43 Atorvastatin 20 Mg Tab PO 20 mg DAILY JS Administration Donepezil HCl 5 mg 02/07/20 21:00 Donepezil 5 Mg Tab PO HS JS Furosemide 40 mg 02/08/20 09:00 Furosemide 40 Mg Tab PO DAILY JS Gabapentin 300 mg 02/07/20 21:00 Gabapentin 300 Mg Cap PO BID JS Hydralazine HCl 25 mg 02/07/20 12:30 Hydralazine Hcl 25 Mg Tab PO AC-TID JS Nitroglycerin 0.4 mg 02/07/20 07:05 Nitroglycerin Sl Tabs 0.4 Mg Tab SUBLINGUAL Q5M PRN Chest Pain Pantoprazole Sodium 40 mg 02/08/20 07:30 Pantoprazole 40 Mg Tablet PO AC-BRKFST JS Intake and Output 02/06/20 02/07/20 02/07/20 22:59 06:59 14:59 Other: # Voids 1 # Bowel Movements 1 Weight 63.503 kg 02/07/20 04:33 02/07/20 04:33
--- NOTE | 2020-02-07 11:38 | P.HPIM ---
History of Present Illness H&P Date: 02/07/20 Chief Complaint: Atrial fibrillation with RVR This is an 84-year-old male one of my patient with a previous medical history significant for hypertension and hypertensive cardio vascular disease, hyperlipidemia, chronic kidney disease stage II, history of essential thrombocytosis, history of severe spondylosis of the cervical spine, history of proximal atrial fib relation, was recently hospitalized in August 2019 where he was found to have multilobar pulmonary emboli and he was started on Eliquis 5 mg orally twice every day, and it was doubtful for whether or not to keep the patient on anticoagulation because of recurrent falls and increased risk of bleeding, eventually the decision was made to keep the patient on outpatient this point in time, he was seen in the office 3 weeks when he was found to have a significant macrocytosis with MCV of 120 with significant suppression of the bone marrow due to the use of Hydrea with leukopenia as well as from cytopenia and he was not sure 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 Moreno , his oncologist as an outpatient which she did and he was kept off Hydrea and he was supposed to go back in 2 weeks for repeat CBC and possible bone marrow biopsy for possible bone marrow disease, patient was brought into the emergency department at [facility] yesterday because of chest pain and he was in atrial fibrillation with rapid response, he was placed on Cardizem drip and he was admitted to the hospital for evaluation by cardiology. Patient is laying down in bed in no apparent distress, I reviewed and moderate in his an atrial ablation with controlled rate we'll discontinue Cardizem drip will increase his metoprolol tartrate 50 mg orally twice every day we'll continue with all Eliquis 2.5 mg orally twice every day hopefully the patient will be going home tomorrow morning, we'll obtain echocardiogram for evaluation of LV function. Review of Systems Constitutional: Reports fatigue, Reports weakness, Denies anorexia, Denies chronic headaches Eyes: bilateral blurred vision, denies bulging eye, denies decreased vision Ears: bilateral: decreased hearing Ears, nose, mouth and throat: Denies dysphagia, Denies neck lump, Denies sore throat Cardiovascular: Reports chest pain, Reports decreased exercise tolerance, Reports dyspnea on exertion, Reports rapid heart beat, Reports shortness of breath, Denies lightheadedness, Denies syncope Respiratory: Denies congestion, Denies cough, Denies cough with sputum, Denies home oxygen, Denies sleep apnea, Denies snoring, Denies wheezing Gastrointestinal: Denies abdominal pain, Denies BRBPR, Denies change in bowel habits, Denies dyspepsia, Denies melena, Denies nausea, Denies vomiting Genitourinary: Reports nocturia, Denies dysuria, Denies incontinence Musculoskeletal: Denies myalgias Musculoskeletal: absent: ankle pain, ankle stiffness, ankle swelling, elbow pain, elbow stiffness, elbow swelling, foot pain, foot stiffness, foot swelling, hand pain, hand stiffness, hand swelling, hip pain, hip stiffness, hip swelling, knee pain, knee stiffness, knee swelling, shoulder pain, shoulder stiffness, shoulder swelling, wrist pain, wrist stiffness, wrist swelling Integumentary: Denies pruritus, Denies rash Neurological: Denies numbness, Denies weakness Psychiatric: Reports anxiety, Denies depression, Denies sadness/tearfulness, Denies sleep disturbances, Denies suicidal ideation Endocrine: Denies fatigue, Denies weight change Past Medical History Past Medical History: Cancer, CVA/TIA, Dementia, Eye Disorder, GERD/Reflux, Hyperlipidemia, Hypertension, Osteoarthritis (OA), Renal Disease Additional Past Medical History / Comment(s): Hx. 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 Syncope. History of Any Multi-Drug Resistant Organisms: None Reported Past Surgical History: Adenoidectomy, Hernia Repair, Joint Replacement, Orthopedic Surgery, Tonsillectomy Additional Past Surgical History / Comment(s): R kidney donor, kiesha hip replacement, L hand trigger finger,uvuloplasty, left carotid stent, bilateral inguinal hernia repair, deviated septum repair, colonoscopy, R cataract removal with lens; Pain procedures. Past Anesthesia/Blood Transfusion Reactions: No Reported Reaction Past Psychological History: No Psychological Hx Reported Smoking Status: Former smoker Past Alcohol Use History: Daily Past Drug Use History: None Reported - Past Family History Father Family Medical History: CVA/TIA Additional Family Medical History / Comment(s): Father at 80 from stroke Mother Family Medical History: No Reported History Additional Family Medical History / Comment(s): Mother at age 55 from polycystic kidney disease. Brother(s) Additional Family Medical History / Comment(s): Patient has 1 brother with multiple medical problems including diabetes. Sister(s) Family Medical History: Renal Disease Additional Family Medical History / Comment(s): Patient has one sister that at age 60 from kidney failure due to polycystic kidney disease. Daughter(s) Family Medical History: No Reported History Additional Family Medical History / Comment(s): Patient has one daughter with no major medical problems. Son(s) Additional Family Medical History / Comment(s): Patient has 5 sons. 2 at premature . One while skiing from a myocardial infarction at age 32. One son is alive with no major medical problems. Medications and Allergies Home Medications Medication Instructions Recorded Confirmed Type allopurinoL [Zyloprim] 300 mg PO DAILY 09/01/13 02/07/20 History hydrALAZINE HCL [Apresoline] 25 mg PO AC-TID 09/01/13 02/07/20 History EPINEPHrine (Auto Inject) [Epipen] 0.3 mg IM ONCE PRN 01/06/17 02/07/20 History Gabapentin [Neurontin] 300 mg PO BID 06/13/17 02/07/20 History Pantoprazole Sodium [Protonix] 40 mg PO AC-BRKFST 08/04/17 02/07/20 History Atorvastatin Calcium [Lipitor] 20 mg PO DAILY 08/14/19 02/07/20 History Metoprolol Tartrate [Lopressor] 25 mg PO BID 11/07/19 02/07/20 History Apixaban [Eliquis] 2.5 mg PO BID #60 tablet 11/11/19 02/07/20 Rx Anagrelide HCl 1 mg PO BID 02/07/20 02/07/20 History Aspirin 81 mg PO DAILY 02/07/20 02/07/20 History Donepezil HCl [Aricept] 5 mg PO HS 02/07/20 02/07/20 History Furosemide [Lasix] 40 mg PO DAILY 12/27/20 12/27/20 History Allergies Allergy/AdvReac Type Severity Reaction Status Date / Time venom-honey bee Allergy Anaphylaxis Verified 02/07/20 07:57 [bee venom (honey bee)] Physical Exam Vitals: Vital Signs Temp Pulse Pulse Resp BP BP Pulse Ox 02/07/20 08:05 98.4 F 114 H 20 121/72 99 02/07/20 07:21 98.2 F 111 H 18 110/72 95 02/07/20 06:26 120 H 02/07/20 04:50 112 H 18 108/55 95 02/07/20 04:21 131 H 20 115/75 94 L Intake and Output 02/06/20 02/07/20 02/07/20 22:59 06:59 14:59 Other: Weight 63.503 kg Physical examination: HEENT: Head is atraumatic, normocephalic, pupils were equal round reactive to light and accommodation, extraocular muscle movement were intact, sclera nonicteric, conjunctivae were., Mucous membranes of the mouth are somewhat dry. Neck: Supple, no JVD, decreased carotid upstroke bilaterally. Chest: Decreased breath sounds at the bases, few rhonchi and expiratory wheezes no chest wall tenderness no intercostal retractions. Heart: First heart sound is depressed, second heart sound is normal, irregularly irregular, there is systolic murmur 2/6 located in the left sternal border. Abdomen: Soft, nontender, nondistended, positive bowel sounds. Extremities: +1 edema no calf tenderness, dorsalis pedis +1 bilaterally. Neurologic exoneration: Patient is awake alert and oriented 2, cranial nerves 3-12 appear grossly intact, muscle power were 4 out of 5 in upper extremities and 3 out of 5 in bilateral lower extremities Results CBC & Chem 7: 02/07/20 04:33 02/07/20 04:33 Labs: Abnormal Lab Results - Last 24 Hours (Table) 02/07/20 02/07/20 02/07/20 Range/Units 04:33 04:33 04:33 WBC 20.5 H (3.8-10.6) k/uL Hgb 12.5 L (13.0-17.5) gm/dL MCHC 30.4 L (31.0-37.0) g/dL RDW 22.5 H (11.5-15.5) % Plt Count 737 H (150-450) k/uL Neutrophils # (Manual) 16.40 H (1.3-7.7) k/uL Monocytes # (Manual) 1.44 H (0-1.0) k/uL Metamyelocytes # (Man) 0.41 H (0) k/uL Myelocytes # (Manual) 0.21 H (0) k/uL Nucleated RBCs 1 H (0-0) /100 WBC PT 13.4 H (9.0-12.0) sec INR 1.3 H (<1.2) APTT 33.2 H (22.0-30.0) sec Chloride 112 H (98-107) mmol/L Carbon Dioxide 17 L (22-30) mmol/L BUN 39 H (9-20) mg/dL Creatinine 1.51 H (0.66-1.25) mg/dL Glucose 145 H (74-99) mg/dL Thrombosis Risk Factor Assmnt - DVT/VTE Prophylaxis DVT/VTE Prophylaxis: Pharmacologic Prophylaxis ordered, Mechanical Prophylaxis ordered Assessment and Plan Assessment: Assessment and plan: 1. Atrial fibrillation with rapid ventricular response. His heart rate is much better on the monitor his ventricular response of 72 bpm, continue metoprolol 50 mg orally twice every day discontinue Cardizem drip, continue Eliquis 2.5 mg orally twice every day, echocardiogram, hopefully home tomorrow morning. 2. Chronic diastolic heart failure. Continue metoprolol 50 mg orally twice every day, continue Lasix 40 mg orally once every day. 3. History of multilobar pulmonary emboli. We'll continue with Eliquis 2.5 mg orally twice every day for life. 4. Essential thrombocytosis. We will continue with anagrelide 1 mg orally twice every day. 5. Hypertension and hypertensive cardiovascular disease. Continue metoprolol 50 mg orally twice every day and hydralazine 25 mg orally 3 times every day. 6. History of gout. Continue allopurinol 300 mg orally once every day. 7. Acute and chronic kidney disease stage II. His creatinine is back to baseline. 8. Paroxysmal atrial fibrillation. Continue metoprolol 50 mg orally twice every day, continue Eliquis 2.5 mg orally twice every day 9. Peripheral neuropathy. Continue gabapentin 300 mg orally twice every day. 10. Vascular dementia. Continue Aricept 5 minute gram orally bedtime. 11. Mixed hyperlipidemia. Continue Lipitor 20 mg orally once every day. 12. Spondylosis of the cervical spine. Continue gabapentin 300 mg orally twice every day. 13. DVT prophylaxis. Continue patient on Eliquis 2.5 mg orally twice every day. 14. GI prophylaxis. Continue patient on Protonix 40 mg orally once every day. 15. Admit to inpatient. Estimate a length of stay 2 midnights. 16. Patient is full code.
[2020-02-07] MEDS: hydrALAZINE HCL 25 MG TAB PO SCH ×2 (12:10→18:02)
[2020-02-07] MEDS: DONEPEZIL 5 MG TAB PO SCH (19:46)
[2020-02-07] MEDS: ANAGRELIDE 0.5 MG CAP PO SCH (19:46)
[2020-02-07] MEDS: GABAPENTIN 300 MG CAP PO SCH (19:46)
[2020-02-07] MEDS ORDERED: METOPROLOL TARTRATE 25 MG TAB PO SCH (21:00)
[2020-02-07] MEDS ORDERED: METOPROLOL TARTRATE 50 MG TAB PO SCH (21:00)
[2020-02-08 03:31] LABS: Cholesterol 126 mg/dL (<200); HDL Cholesterol 37 mg/dL (40-60); LDL Cholesterol,Calculated 67 mg/dL (0-99); Triglycerides 111 mg/dL (<150)
[2020-02-08] MEDS: PANTOPRAZOLE 40 MG TABLET PO SCH (06:39)
--- NOTE | 2020-02-08 08:36 | P.PN ---
Subjective Progress Note Date: 02/08/20 This is an 84-year-old male one of my patient with a previous medical history significant for hypertension and hypertensive cardio vascular disease, hyperlipidemia, chronic kidney disease stage II, history of essential thrombocytosis, history of severe spondylosis of the cervical spine, history of proximal atrial fib relation, was recently hospitalized in August 2019 where he was found to have multilobar pulmonary emboli and he was started on Eliquis 5 mg orally twice every day, and it was doubtful for whether or not to keep the patient on anticoagulation because of recurrent falls and increased risk of bleeding, eventually the decision was made to keep the patient on outpatient this point in time, he was seen in the office 3 weeks when he was found to have a significant macrocytosis with MCV of 120 with significant suppression of the bone marrow due to the use of Hydrea with leukopenia as well as from cytopenia and he was not sure 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 Moreno , his oncologist as an outpatient which she did and he was kept off Hydrea and he was supposed to go back in 2 weeks for repeat CBC and possible bone marrow biopsy for possible bone marrow disease, patient was brought into the emergency department at [facility] yesterday because of chest pain and he was in atrial fibrillation with rapid response, he was placed on Cardizem drip and he was admitted to the hospital for evaluation by cardiology. Patient is laying down in bed in no apparent distress, I reviewed and moderate in his an atrial ablation with controlled rate we'll discontinue Cardizem drip will increase his metoprolol tartrate 50 mg orally twice every day we'll continue with all Eliquis 2.5 mg orally twice every day hopefully the patient will be going home tomorrow morning, we'll obtain echocardiogram for evaluation of LV function. 02/07: Patient sitting up in a chair and apparent distress, his was called in last night because of his confusion, he is doing a lot better today down, heart rate is increased 120-130 bpm, we'll increase metoprolol 20 mg orally twice every day, discontinue hydralazine, monitor the patient for overnight hopefully he'll be discharged home tomorrow morning. Patient does not have any chest pain or any shortness breath he has no abdominal pain, he seems to be tolerating his treatment very well. Objective - Vital Signs Vital signs: Vital Signs Temp 98.5 F 02/08/20 04:00 Pulse 121 H 02/08/20 04:00 Resp 18 02/08/20 04:00 BP 115/70 02/08/20 04:00 Pulse Ox 92 L 02/08/20 04:12 Intake & Output 02/07/20 02/08/20 02/08/20 18:59 06:59 18:59 Intake Total 240 Balance 240 Weight 63.503 kg 91.4 kg Intake: Oral 240 Other: Voiding Method Toilet Toilet # Voids 1 0 # Bowel Movements 1 0 - Exam Review of Systems Constitutional: Reports fatigue, Reports weakness, Denies anorexia, Denies chronic headaches Eyes: bilateral blurred vision, denies bulging eye, denies decreased vision Ears: bilateral: decreased hearing Ears, nose, mouth and throat: Denies dysphagia, Denies neck lump, Denies sore throat Cardiovascular: Reports chest pain, Reports decreased exercise tolerance, Reports dyspnea on exertion, Reports rapid heart beat, Reports shortness of breath, Denies lightheadedness, Denies syncope Respiratory: Denies congestion, Denies cough, Denies cough with sputum, Denies home oxygen, Denies sleep apnea, Denies snoring, Denies wheezing Gastrointestinal: Denies abdominal pain, Denies BRBPR, Denies change in bowel habits, Denies dyspepsia, Denies melena, Denies nausea, Denies vomiting Genitourinary: Reports nocturia, Denies dysuria, Denies incontinence Musculoskeletal: Denies myalgias Musculoskeletal: absent: ankle pain, ankle stiffness, ankle swelling, elbow pain, elbow stiffness, elbow swelling, foot pain, foot stiffness, foot swelling, hand pain, hand stiffness, hand swelling, hip pain, hip stiffness, hip swelling, knee pain, knee stiffness, knee swelling, shoulder pain, shoulder stiffness, shoulder swelling, wrist pain, wrist stiffness, wrist swelling Integumentary: Denies pruritus, Denies rash Neurological: Denies numbness, Denies weakness Psychiatric: Reports anxiety, Denies depression, Denies sadness/tearfulness, Denies sleep disturbances, Denies suicidal ideation Endocrine: Denies fatigue, Denies weight change Physical examination: HEENT: Head is atraumatic, normocephalic, pupils were equal round reactive to light and accommodation, extraocular muscle movement were intact, sclera nonict azeb, conjunctivae were., Mucous membranes of the mouth are somewhat dry. Neck: Supple, no JVD, decreased carotid upstroke bilaterally. Chest: Decreased breath sounds at the bases, few rhonchi and expiratory wheezes no chest wall tenderness no intercostal retractions. Heart: First heart sound is depressed, second heart sound is normal, irregularly irregular, there is systolic murmur 2/6 located in the left sternal border. Abdomen: Soft, nontender, nondistended, positive bowel sounds. Extremities: +1 edema no calf tenderness, dorsalis pedis +1 bilaterally. Neurologic exoneration: Patient is awake alert and oriented 2, cranial nerves 3-12 appear grossly intact, muscle power were 4 out of 5 in upper extremities and 3 out of 5 in bilateral lower extremities - Labs CBC & Chem 7: 02/07/20 04:33 02/07/20 04:33 Labs: Abnormal Lab Results - Last 24 Hours (Table) 02/07/20 02/07/20 02/07/20 Range/Units 04:33 04:33 11:53 WBC 20.5 H (3.8-10.6) k/uL Neutrophils # (Manual) 16.40 H (1.3-7.7) k/uL Monocytes # (Manual) 1.44 H (0-1.0) k/uL Metamyelocytes # (Man) 0.41 H (0) k/uL Myelocytes # (Manual) 0.21 H (0) k/uL Nucleated RBCs 1 H (0-0) /100 WBC D-Dimer 0.99 H (<0.60) mg/L FEU HDL Cholesterol 37 L (40-60) mg/dL Assessment and Plan Assessment: Assessment and plan: 1. Atrial fibrillation with rapid ventricular response. continue and increase metoprolol 100 mg orally twice every day , continue Eliquis 2.5 mg orally twice every day, echocardiogram, hopefully home tomorrow morning. 2. Chronic diastolic heart failure. Continue metoprolol 100 mg orally twice every day, continue Lasix 40 mg orally once every day. 3. History of multilobar pulmonary emboli. We'll continue with Eliquis 2.5 mg orally twice every day for life. 4. Essential thrombocytosis. We will continue with anagrelide 1 mg orally twice every day. 5. Hypertension and hypertensive cardiovascular disease. Continue metoprolol 100 mg orally bid and discontinue Hydralazine 6. History of gout. Continue allopurinol 300 mg orally once every day. 7. Acute and chronic kidney disease stage II. His creatinine is back to [facility] jourdan. 8. Paroxysmal atrial fibrillation. Continue metoprolol 50 mg orally twice every day, continue Eliquis 2.5 mg orally twice every day 9. Peripheral neuropathy. Continue gabapentin 300 mg orally twice every day. 10. Vascular dementia. Continue Aricept 5 minute gram orally bedtime. 11. Mixed hyperlipidemia. Continue Lipitor 20 mg orally once every day. 12. Spondylosis of the cervical spine. Continue gabapentin 300 mg orally twice every day. 13. DVT prophylaxis. Continue patient on Eliquis 2.5 mg orally twice every day. 14. GI prophylaxis. Continue patient on Protonix 40 mg orally once every day. 15. Plan fo discharge home in AM.
[2020-02-08] MEDS: allopurinoL 300 MG TAB PO SCH (08:41)
[2020-02-08] MEDS: GABAPENTIN 300 MG CAP PO SCH ×2 (08:41→20:25)
[2020-02-08] MEDS: ATORVASTATIN 20 MG TAB PO SCH (08:41)
[2020-02-08] MEDS: FUROSEMIDE 40 MG TAB PO SCH (08:41)
[2020-02-08] MEDS: ASPIRIN 81 MG PO SCH (08:41)
[2020-02-08] MEDS: APIXABAN 2.5 MG TABLET PO SCH ×2 (08:41→20:26)
[2020-02-08] MEDS: ANAGRELIDE 0.5 MG CAP PO SCH ×2 (08:41→20:26)
[2020-02-08] MEDS: METOPROLOL TARTRATE 50 MG TAB PO SCH ×2 (08:41→20:25)
[2020-02-08] MEDS ORDERED: ASPIRIN 325 MG TAB PO SCH (09:00)
--- NOTE | 2020-02-08 09:36 | P.PN ---
Subjective Progress Note Date: 02/08/20 Principal diagnosis: Coronary artery disease/permanent atrial fibrillation This is an 84-year-old gentleman who is overall frail with a past medical history significant for permanent atrial fibrillation, hypertension, dyslipidemia, carotid disease, and also multiple comorbid conditions including underlying dementia was admitted to the hospital mainly because of chest discomfort which was atypical and also because of atrial fibrillation with a rapid ventricular response. The patient was seen this morning. He seems to be chest pain-free. He denies any shortness of breath. Overall he is a poor historian. He continues to be on atrial fibrillation with slightly uncontrolled heart rate and resting heart rate around 115 beats per minutes. He just started on metoprolol by Dr. Sandra and also he is on oral anticoagulation. An echocardiogram was performed and will follow-up on that. Objective - Vital Signs Vital signs: Vital Signs Temp 98.0 F 02/08/20 08:00 Pulse 120 H 02/08/20 08:00 Resp 18 02/08/20 08:00 BP 111/69 02/08/20 08:00 Pulse Ox 96 02/08/20 08:00 Intake & Output 02/07/20 02/08/20 02/08/20 18:59 06:59 18:59 Intake Total 240 540 Balance 240 540 Weight 63.503 kg 91.4 kg Intake: Oral 240 540 Other: Voiding Method Toilet Toilet # Voids 1 0 # Bowel Movements 1 0 - Constitutional General appearance: Present: no acute distress - Respiratory Respiratory: bilateral: diminished - Cardiovascular Rhythm: irregularly irregular Heart sounds: normal: S1, S2 Abnormal Heart Sounds: Present: systolic murmur - Labs CBC & Chem 7: 02/07/20 04:33 02/07/20 04:33 Labs: Abnormal Lab Results - Last 24 Hours (Table) 02/07/20 02/07/20 Range/Units 04:33 11:53 D-Dimer 0.99 H (<0.60) mg/L FEU HDL Cholesterol 37 L (40-60) mg/dL Assessment and Plan Assessment: Assessment #1 atypical chest discomfort #2 permanent atrial fibrillation was uncontrolled heart rate #3 multiple comorbid conditions including underlying dementia Plan #1 monitor the heart rate and blood pressure for additional 24 hours #2 consider amiodarone if the heart rate continues to be nonfocal controlled on metoprolol #3 continue on anticoagulation #4 follow-up on the echocardiogram
[2020-02-08] MEDS: hydrALAZINE HCL 25 MG TAB PO SCH (10:05)
--- NOTE | 2020-02-08 13:42 | ECHOF ---
Referral Reason:LV function MEASUREMENTS -------- HEIGHT: 177.8 cm WEIGHT: 91.2 kg BP: 115/70 IVSd: 1.2 cm (0.6 - 1.1) LVIDd: 4.7 cm (3.9 - 5.3) LVPWd: 1.2 cm (0.6 - 1.1) IVSs: 1.9 cm LVIDs: 3.1 cm LVPWs: 1.6 cm LA Diam: 3.7 cm (2.7 - 3.8) RVIDd: 3.4 cm (< 3.3) LAESV Index (A-L): 29.22 ml/m Ao Diam: 4.1 cm (2.0 - 3.7) AV Cusp: 1.6 cm (1.5 - 2.6) EPSS: 0.7 cm AR PHT: 443 ms RAP: 5.00 mmHg RVSP: 42.36 mmHg MV EF SLOPE: 152.74 mm/s (70 - 150) MV EXCURSION: 19.44 mm (> 18.000) FINDINGS -------- Atrial fibrillation. This was a technically adequate study. The left ventricular size is normal. There is borderline concentric left ventricular hypertrophy. Overall left ventricular systolic function is mild-moderately impaired with, an EF between 40 - 45 % . The right ventricle is normal in size. Normal LA size by volume 22+/-6 ml/m2. The right atrium is normal in size. Lipomatous Hypertrophy of the atrial septum is present There is mild aortic valve sclerosis. Trace to mild aortic regurgitation. Mild mitral annular calcification present. Mild mitral regurgitation is present. Mild tricuspid regurgitation present. There is mild pulmonary hypertension. The right ventricular systolic pressure, as measured by Doppler, is 42.36mmHg. Trace/mild (physiologic) pulmonic regurgitation. The aortic root is dilated measuring 4.1cm. The inferior vena cava is dilated with no significant inspiratory collapse which is consistent estima hermilo right atrial pressure of >15 mmHg. There is no pericardial effusion. CONCLUSIONS -------- 1. The left ventricular size is normal. 2. There is borderline concentric left ventricular hypertrophy. 3. Overall left ventricular systolic function is mild-moderately impaired with, an EF between 40 - 45 %. 4. The right ventricle is normal in size. 5. Normal LA size by volume 22+/-6 ml/m2. 6. Lipomatous Hypertrophy of the atrial septum is present 7. There is mild aortic valve sclerosis. 8. Trace to mild aortic regurgitation. 9. Mild mitral annular calcification present. 10. Mild mitral regurgitation is present. 11. Mild tricuspid regurgitation present. 12. There is mild pulmonary hypertension. 13. The right ventricular systolic pressure, as measured by Doppler, is 42.36mmHg. 14. Trace/mild (physiologic) pulmonic regurgitation. 15. The aortic root is dilated measuring 4.1cm. 16. The inferior vena cava is dilated with no significant inspiratory collapse which is consistent es timated right atrial pressure of >15 mmHg. 17. There is no pericardial effusion. RADIOGRAPHER CARDIAC CATHETERIZATION: Dianne Mina RDCS
[2020-02-08 13:50] VITALS: BMI 28.9
[2020-02-08] MEDS: DONEPEZIL 5 MG TAB PO SCH (20:26)
[2020-02-09 04:21] VITALS: TEMP 99
[2020-02-09] MEDS: PANTOPRAZOLE 40 MG TABLET PO SCH (06:30)
[2020-02-09] MEDS: ATORVASTATIN 20 MG TAB PO SCH (08:05)
[2020-02-09] MEDS: METOPROLOL TARTRATE 50 MG TAB PO SCH (08:05)
[2020-02-09] MEDS: ASPIRIN 81 MG PO SCH (08:05)
[2020-02-09] MEDS: ANAGRELIDE 0.5 MG CAP PO SCH (08:05)
[2020-02-09] MEDS: APIXABAN 2.5 MG TABLET PO SCH (08:05)
[2020-02-09] MEDS: FUROSEMIDE 40 MG TAB PO SCH (08:05)
[2020-02-09] MEDS: allopurinoL 300 MG TAB PO SCH (08:05)
[2020-02-09] MEDS: GABAPENTIN 300 MG CAP PO SCH (08:05)
--- NOTE | 2020-02-09 08:42 | P.PN ---
Subjective Progress Note Date: 02/09/20 Principal diagnosis: Coronary artery disease/permanent atrial fibrillation This is an 84-year-old gentleman who is overall frail with a past medical history significant for permanent atrial fibrillation, hypertension, dyslipidemia, carotid disease, and also multiple comorbid conditions including underlying dementia was admitted to the hospital mainly because of chest discomfort which was atypical and also because of atrial fibrillation with a rapid ventricular response. The patient was seen this morning. He denies any symptoms of chest pain or chest discomfort or shortness of breath. He continues to be in atrial fibrillation was controlled heart rates. He continues to be on oral anticoagulation. The echocardiogram revealed impaired LV function was EF around 40%. From the cardiac standpoint, the patient is a stable and can be discharged home Objective - Vital Signs Vital signs: Vital Signs Temp 99 F 02/09/20 04:00 Pulse 101 H 02/09/20 04:00 Resp 18 02/09/20 02:00 BP 109/59 02/09/20 04:00 Pulse Ox 92 L 02/09/20 04:00 Intake & Output 02/08/20 02/09/20 02/09/20 18:59 06:59 18:59 Intake Total 1380 600 Output Total 500 300 Balance 880 300 Weight 91.4 kg 96.5 kg Intake: Oral 1380 600 Output: Urine 500 300 Other: Voiding Method Toilet # Voids 2 1 3 - Constitutional General appearance: Present: no acute distress - Respiratory Respiratory: bilateral: CTA - Cardiovascular Rhythm: irregularly irregular Heart sounds: normal: S1, S2 - Labs CBC & Chem 7: 02/07/20 04:33 02/07/20 04:33 Assessment and Plan Assessment: Assessment #1 atypical chest discomfort #2 permanent atrial fibrillation was uncontrolled heart rate #3 multiple comorbid conditions including underlying dementia Plan #1 continue the current medical regimen #2 the patient can be discharged home
[2020-02-09 09:00] VITALS: RESP 16
[2020-02-09 12:01] VITALS: BP 100/70; PULSE 91
--- NOTE | 2020-02-09 13:25 | P.DS ---
Providers Date of admission: 02/08/20 11:15 Expected date of discharge: 02/09/20 Attending physician: Laurita Sandra Consults: 02/07/20 07:05 Consult Physician Routine Consulting Provider: Yuri Sky Consult Reason/Comments: Atrial fibrillation with rapid ventricular rate. Do you want consulting provider notified?: Yes Primary care physician: Laurita Sandra Hospital Course: This is an 84-year-old male one of my patient with a previous medical history significant for hypertension and hypertensive cardio vascular disease, hyperlipidemia, chronic kidney disease stage II, history of essential thrombocytosis, history of severe spondylosis of the cervical spine, history of proximal atrial fib relation, was recently hospitalized in August 2019 where he was found to have multilobar pulmonary emboli and he was started on Eliquis 5 mg orally twice every day, and it was doubtful for whether or not to keep the patient on anticoagulation because of recurrent falls and increased risk of bleeding, eventually the decision was made to keep the patient on outpatient this point in time, he was seen in the office 3 weeks when he was found to have a significant macrocytosis with MCV of 120 with significant suppression of the bone marrow due to the use of Hydrea with leukopenia as well as from cytopenia and he was not sure 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 Moreno , his oncologist as an outpatient which she did and he was kept off Hydrea and he was supposed to go back in 2 weeks for repeat CBC and possible bone marrow biopsy for possible bone marrow disease, patient was brought into the emergency department at [facility] yesterday because of chest pain and he was in atrial fibrillation with rapid response, he was placed on Cardizem drip and he was admitted to the hospital for evaluation by cardiology. Patient is laying down in bed in no apparent distress, I reviewed and moderate in his an atrial ablation with controlled rate we'll discontinue Cardizem drip will increase his metoprolol tartrate 50 mg orally twice every day we'll continue with all Eliquis 2.5 mg orally twice every day hopefully the patient will be going home tomorrow morning, we'll obtain echocardiogram for evaluation of LV function. 02/07: Patient sitting up in a chair and apparent distress, his was called in last night because of his confusion, he is doing a lot better today down,heart rate is increased 120-130 bpm, we'll increase metoprolol 20 mg orally twice every day, discontinue hydralazine, monitor the patient for overnight hopefully he'll be discharged home tomorrow morning. Patient does not have any chest pain or any shortness breath he has no abdominal pain, he seems to be tolerating his treatment very well. discharge diagnoses: 1. Atrial fibrillation with rapid ventricular response. 2. Chronic systolic heart failure. 3. History of multilobar pulmonary emboli. 4. Essential thrombocytosis. 5. Hypertension and hypertensive cardiovascular disease. 6. History of gout. 7. Acute and chronic kidney disease stage 3a. 8. Paroxysmal atrial fibrillation. 9. Peripheral neuropathy. 10. Vascular dementia. 11. Mixed hyperlipidemia. 12. Spondylosis of the cervical spine. Patient Condition at Discharge: Good Plan - Discharge Summary Discharge Rx Participant: No New Discharge Prescriptions: New Metoprolol Tartrate [Lopressor] 100 mg PO BID #60 tab Continue allopurinoL [Zyloprim] 300 mg PO DAILY EPINEPHrine (Auto Inject) [Epipen] 0.3 mg IM ONCE PRN PRN Reason: Anaphylaxis Gabapentin [Neurontin] 300 mg PO BID Pantoprazole Sodium [Protonix] 40 mg PO AC-BRKFST Atorvastatin Calcium [Lipitor] 20 mg PO DAILY Apixaban [Eliquis] 2.5 mg PO BID #60 tablet Donepezil HCl [Aricept] 5 mg PO HS Aspirin 81 mg PO DAILY Anagrelide HCl 1 mg PO BID Furosemide [Lasix] 40 mg PO DAILY Discontinued hydrALAZINE HCL [Apresoline] 25 mg PO AC-TID Metoprolol Tartrate [Lopressor] 25 mg PO BID Discharge Medication List allopurinoL [Zyloprim] 300 mg PO DAILY 09/01/13 [History] EPINEPHrine (Auto Inject) [Epipen] 0.3 mg IM ONCE PRN 01/06/17 [History] Gabapentin [Neurontin] 300 mg PO BID 06/13/17 [History] Pantoprazole Sodium [Protonix] 40 mg PO AC-BRKFST 08/04/17 [History] Atorvastatin Calcium [Lipitor] 20 mg PO DAILY 08/14/19 [History] Apixaban [Eliquis] 2.5 mg PO BID #60 tablet 11/11/19 [Rx] Anagrelide HCl 1 mg PO BID 02/07/20 [History] Aspirin 81 mg PO DAILY 02/07/20 [History] Donepezil HCl [Aricept] 5 mg PO HS 02/07/20 [History] Furosemide [Lasix] 40 mg PO DAILY 02/07/20 [History] Metoprolol Tartrate [Lopressor] 100 mg PO BID #60 tab 02/09/20 [Rx] Follow up Appointment(s)/Referral(s): Laurita Sandra MD [Primary Care Provider] - 1 Week Discharge Disposition: HOME WITH HOME HEALTH SERVICES
== END 2020-02-09 16:01 | disposition home health service (06) | DRG 309 ==
LOC: EC 04:15 → 3SCARD 07:31 → OBSVTOIN 02-08 11:15
PROVIDERS: ADMIT Internal Medicine; ATTEND Internal Medicine
DX: I48.21 Permanent atrial fibrillation (principal); I13.0 Hypertensive heart and chronic kidney disease with heart failure and stage 1 through stage 4 chronic kidney disease, or unspecified chronic kidney disease; I50.42 Chronic combined systolic (congestive) and diastolic (congestive) heart failure; N17.9 Acute kidney failure, unspecified; F01.50 Vascular dementia, unspecified severity, without behavioral disturbance, psychotic disturbance, mood disturbance, and anxiety; I25.10 Atherosclerotic heart disease of native coronary artery without angina pectoris; E78.2 Mixed hyperlipidemia; D47.3 Essential (hemorrhagic) thrombocythemia; G62.9 Polyneuropathy, unspecified; I65.29 Occlusion and stenosis of unspecified carotid artery; R29.6 Repeated falls; N18.31 Chronic kidney disease, stage 3a; Z96.649 Presence of unspecified artificial hip joint; M10.9 Gout, unspecified; Z20.828 Contact with and (suspected) exposure to other viral communicable diseases; M47.812 Spondylosis without myelopathy or radiculopathy, cervical region; Z96.1 Presence of intraocular lens; Z79.82 Long term (current) use of aspirin; Z79.899 Other long term (current) drug therapy; Z79.01 Long term (current) use of anticoagulants; Z82.3 Family history of stroke; Z82.49 Family history of ischemic heart disease and other diseases of the circulatory system; Z82.71 Family history of polycystic kidney; Z83.3 Family history of diabetes mellitus; Z85.828 Personal history of other malignant neoplasm of skin; Z86.711 Personal history of pulmonary embolism; Z86.73 Personal history of transient ischemic attack (TIA), and cerebral infarction without residual deficits; Z87.891 Personal history of nicotine dependence; Z98.41 Cataract extraction status, right eye
CPT/HCPCS: 36415; 71045; 80053; 80061; 83735; 84443; 84484; 85025; 85379; 85610; 85730; 87635; 93005; 93306; 96365; 96366; 96376; 99291

== ENCOUNTER 2020-03-31 11:14 | Inpatient (IN) | payer MEDICARE ==
[2020-03-31] MEDS ORDERED: GELATIN SPONGE,ABSORB (SMALL) 1 EACH SPONGE TOPICAL STA (11:55)
[2020-03-31 12:45] LABS: Albumin 2.9 g/dL (3.5-5.0); Calcium 9.2 mg/dL (8.4-10.2); INR 1.5 (<1.2); Magnesium 2.1 mg/dL (1.6-2.3); Partial Thromboplastin Time 28.3 sec (22.0-30.0); Potassium 5.4 mmol/L (3.5-5.1); Prothrombin Time 15.1 sec (9.0-12.0); Total Bilirubin 0.9 mg/dL (0.2-1.3); Total Protein 5.7 g/dL (6.3-8.2)
--- NOTE | 2020-03-31 12:49 | XR ---
EXAMINATION TYPE: XR chest 2V DATE OF EXAM: 03/31/2020 COMPARISON: 02/07/2020 TECHNIQUE: PA and lateral views submitted. HISTORY: Chest pain FINDINGS: Diffuse interstitial pattern with bilateral consolidation and small effusions. No pneumothorax. Heart enlarged. Chronic appearing deformity of the right clavicle. IMPRESSION: 1. Correlate for CHF otherwise consider pneumonia.
[2020-03-31 12:50] LABS: Anisocytosis Moderate; HCT 34.4 % (39.0-53.0); Hypochromasia Slight; MCH 27.1 pg (25.0-35.0); MCHC 32.1 g/dL (31.0-37.0); MCV 84.6 fL (80.0-100.0); Mean Platelet Volume 12.3; Microcytosis Slight; Poikilocytosis Slight; RBC 4.06 m/uL (4.30-5.90); RDW 22.6 % (11.5-15.5)
--- NOTE | 2020-03-31 12:50 | XR ---
EXAMINATION TYPE: XR toes RT DATE OF EXAM: 03/31/2020 COMPARISON: NONE HISTORY: Pain TECHNIQUE: 3 views submitted FINDINGS: There is arthropathy of the MTP joint with evidence of a remote fracture involving the fift h metatarsal. Soft tissue edema noted. No acute fracture. No metallic foreign body. Postsurgical thomas ge involving the first digit noted on the lateral view. IMPRESSION: Soft tissue injury with no acute fracture.
[2020-03-31] MEDS ORDERED: TOPICAL SKIN ADHESIVE 1 EACH AMP TOPICAL STA (13:05)
[2020-03-31 13:09] LABS: Platelet Count 371 k/uL (150-450)
[2020-03-31 13:13] LABS: Band Neutrophils % 5 %; Basophils # (M) 0.29 k/uL (0-0.2); Metamyelocytes % 3 %; Myelocytes % 5 %; Neutrophils % (M) 67 %; Nucleated Red Blood Cells 1 /100 WBC (0-0); Total Cells Counted 200
[2020-03-31 13:14] LABS: Eosinophils # (M) 1.16 k/uL (0-0.7); Large Platelets Present; Lymphocytes # (M) 2.61 k/uL (1.0-4.8); Metamyelocytes # (M) 0.87 k/uL (0); Monocytes # (M) 2.03 k/uL (0-1.0); Myelocytes # (M) 1.45 k/uL (0)
[2020-03-31 13:17] LABS: Ovalocytes Present
--- NOTE | 2020-03-31 13:36 | ED ---
General Adult HPI - General Chief complaint: Wound/Laceration Stated complaint: Foot Lac/on blood thinner Source: patient, RN notes reviewed Mode of arrival: ambulatory Limitations: no limitations - History of Present Illness Initial comments: 84-year-old male with a past medical history of CVA, dementia, hyperlipidemia, hypertension, GERD, renal disease presents to the emergency room for a chief complaint of bleeding toe. Patient reports that his toe has been bleeding since this morning when he stubbed it. His states she could not get it to stop it when she called his doctor he told her to come into the ER. On presentation this is because only complaint however he is found to be tachycardic with a borderline blood pressure and slight hypoxia. He does report that he has had increased cough over the past week and some increased shortness of breath. No chest pain. Slight weakness.Patient has no other complaints at this time including shortness of breath, chest pain, abdominal pain, nausea or vomiting, headache, or visual changes. - Related Data Home Medications Medication Instructions Recorded Confirmed allopurinoL [Zyloprim] 300 mg PO DAILY 09/01/13 03/31/20 EPINEPHrine (Auto Inject) [Epipen] 0.3 mg IM ONCE PRN 01/06/17 03/31/20 Gabapentin [Neurontin] 300 mg PO BID 06/13/17 03/31/20 Pantoprazole Sodium [Protonix] 40 mg PO AC-BRKFST 08/04/17 03/31/20 Atorvastatin Calcium [Lipitor] 20 mg PO DAILY 08/14/19 03/31/20 Anagrelide HCl 1 mg PO BID 02/07/20 03/31/20 Furosemide [Lasix] 40 mg PO MOWEFR 02/07/20 03/31/20 Linagliptin [Tradjenta] 5 mg PO DAILY 03/31/20 03/31/20 Metoprolol Tartrate [Lopressor] 50 mg PO BID 03/31/20 03/31/20 hydrALAZINE HCL [Apresoline] 25 mg PO TID 03/31/20 03/31/20 Previous Rx's Medication Instructions Recorded Apixaban [Eliquis] 2.5 mg PO BID #60 tablet 11/11/19 Allergies Allergy/AdvReac Type Severity Reaction Status Date / Time venom-honey bee Allergy Anaphylaxis Verified 03/31/20 13:39 [bee venom (honey bee)] donepezil [From Aricept] AdvReac Diarrhea Verified 03/31/20 13:39 rivastigmine AdvReac Rash/Hives Verified 03/31/20 13:39 Review of Systems ROS Statement: Those systems with pertinent positive or pertinent negative responses have been documented in the HPI. ROS Other: All systems not noted in ROS Statement are negative. Past Medical History Past Medical History: Cancer, CVA/TIA, Dementia, Eye Disorder, GERD/Reflux, Hyperlipidemia, Hypertension, Osteoarthritis (OA), Renal Disease Additional Past Medical History / Comment(s): Hx. 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 Syncope. History of Any Multi-Drug Resistant Organisms: None Reported Past Surgical History: Adenoidectomy, Hernia Repair, Joint Replacement, Orthopedic Surgery, Tonsillectomy Additional Past Surgical History / Comment(s): R kidney donor, kiesha hip replacement, L hand trigger finger,uvuloplasty, left carotid stent, bilateral inguinal hernia repair, deviated septum repair, colonoscopy, R cataract removal with lens; Pain procedures. Past Anesthesia/Blood Transfusion Reactions: No Reported Reaction Past Psychological History: No Psychological Hx Reported Smoking Status: Never smoker Past Alcohol Use History: Occasional Past Drug Use History: None Reported - Past Family History Father Family Medical History: CVA/TIA Additional Family Medical History / Comment(s): Father at 80 from stroke Mother Family Medical History: No Reported History Additional Family Medical History / Comment(s): Mother at age 55 from polycystic kidney disease. Brother(s) Additional Family Medical History / Comment(s): Patient has 1 brother with multiple medical problems including diabetes. Sister(s) Family Medical History: Renal Disease Additional Family Medical History / Comment(s): Patient has one sister that at age 60 from kidney failure due to polycystic kidney disease. Daughter(s) Family Medical History: No Reported History Additional Family Medical History / Comment(s): Patient has one daughter with no major medical problems. Son(s) Additional Family Medical History / Comment(s): Patient has 5 sons. 2 at premature . One while skiing from a myocardial infarction at age 32. One son is alive with no major medical problems. General Exam Limitations: no limitations General appearance: alert, in no apparent distress Head exam: Present: atraumatic, normal inspection Eye exam: Present: normal appearance, PERRL, EOMI. Absent: scleral icterus, conjunctival injection ENT exam: Present: normal exam, mucous membranes moist Neck exam: Present: normal inspection, full ROM. Absent: tenderness Respiratory exam: Present: normal lung sounds bilaterally. Absent: respiratory distress, wheezes Cardiovascular Exam: Present: tachycardia, irregular rhythm, normal heart sounds GI/Abdominal exam: Present: soft, normal bowel sounds. Absent: distended, tenderness Extremities exam: Present: other (Small skin tear noted to the lateral aspect of the right fifth toe. No tenderness Ecchymosis or signs of traumain the remainder of the foot.) Neurological exam: Present: alert, oriented X3 Course Vital Signs 03/31/20 03/31/20 03/31/20 11:24 11:45 12:55 Temperature 98.0 F Pulse Rate 71 110 H 108 H Respiratory 18 18 16 Rate Blood Pressure 96/65 136/79 O2 Sat by Pulse 84 L 93 L 96 Oximetry EKG Findings - EKG Comments: EKG Findings:: Atrial fibrillation, ventricular rate 110, QRS duration 88, QTC 492 Procedures - Laceration Laceration #1 Consent Obtained: verbal consent Indication: laceration Site: lower extremity Size (cm): 1 Description: linear Size of Sutures: other (exofin) Additional Comments: Skin tear was glued, no additional bleeding. Hemostasis achieved. Medical Decision Making - Medical Decision Making Patient initially 84% on room air however this did improve. Heart rate Has sonia ined in the 110s, not currently requiring treatment. CBC does show leukocytosis which is chronic for patient however this has increased more than his baseline. CMP does reveal acute on chronic renal disease. Patient's cr usually 2.0. Today it is 3.0. BUN 86. Chest x-ray shows a correlate for CHF otherwise consider pneumonia. Minimal pedal edema noted otherwise no peripheral edema. BNP 14,000 over patient has had elevated BNP's in the past. Patient does admit to productive cough. I discussed this case with Dr. Sandra. He is concerned that symptoms are likely more related to dehydration given patient has had recent diarrhea with this PETER. Recommended starting patient on 50 mL per hour of normal saline. Does Not want Lasix given solo kidney and PETER however we will consult nephrology. Also recommends pulmonology consultation. Patient started on Rocephin and azithromycin Which was given within 3 hours of sepsis criteria when chest x-ray was read at 1246. - Lab Data Result diagrams: 03/31/20 12:10 03/31/20 12:10 Lab Results 03/31/20 03/31/20 03/31/20 Range/Units 12:10 12:10 12:10 WBC 29.0 H (3.8-10.6) k/uL RBC 4.06 L (4.30-5.90) m/uL Hgb 11.0 L (13.0-17.5) gm/dL Hct 34.4 L (39.0-53.0) % MCV 84.6 D (80.0-100.0) fL MCH 27.1 (25.0-35.0) pg MCHC 32.1 (31.0-37.0) g/dL RDW 22.6 H (11.5-15.5) % Plt Count 371 (150-450) k/uL MPV 12.3 Neutrophils % (Manual) 67 % Band Neuts % (Manual) 5 % Lymphocytes % (Manual) 9 % Monocytes % (Manual) 7 % Eosinophils % (Manual) 4 % Basophils % (Manual) 1 % Metamyelocytes % 3 % Myelocytes % 5 % Neutrophils # (Manual) 20.80 H (1.3-7.7) k/uL Lymphocytes # (Manual) 2.61 (1.0-4.8) k/uL Monocytes # (Manual) 2.03 H (0-1.0) k/uL Eosinophils # (Manual) 1.16 H (0-0.7) k/uL Basophils # (Manual) 0.29 H (0-0.2) k/uL Metamyelocytes # (Man) 0.87 H (0) k/uL Myelocytes # (Manual) 1.45 H (0) k/uL Nucleated RBCs 1 H (0-0) /100 WBC Manual Slide Review Performed Large Platelets Present Hypochromasia Slight Poikilocytosis Slight Anisocytosis Moderate Microcytosis Slight Ovalocytes Present PT 15.1 H (9.0-12.0) sec INR 1.5 H (<1.2) APTT 28.3 (22.0-30.0) sec Sodium 141 (137-145) mmol/L Potassium 5.4 H (3.5-5.1) mmol/L Chloride 115 H (98-107) mmol/L Carbon Dioxide 14 L (22-30) mmol/L Anion Gap 12 mmol/L BUN 86 H (9-20) mg/dL Creatinine 3.00 H (0.66-1.25) mg/dL Est GFR (CKD-EPI)AfAm 21 (>60 ml/min/1.73 sqM) Est GFR (CKD-EPI)NonAf 18 (>60 ml/min/1.73 sqM) Glucose 145 H (74-99) mg/dL Plasma Lactic Acid Ganesh (0.7-2.0) mmol/L Calcium 9.2 (8.4-10.2) mg/dL Magnesium 2.1 (1.6-2.3) mg/dL Total Bilirubin 0.9 (0.2-1.3) mg/dL AST 20 (17-59) U/L ALT 8 (4-49) U/L Alkaline Phosphatase 123 (38-126) U/L Troponin I (0.000-0.034) ng/mL NT-Pro-B Natriuret Pep pg/mL Total Protein 5.7 L (6.3-8.2) g/dL Albumin 2.9 L (3.5-5.0) g/dL 03/31/20 03/31/20 03/31/20 Range/Units 12:10 12:10 13:12 WBC (3.8-10.6) k/uL RBC (4.30-5.90) m/uL Hgb (13.0-17.5) gm/dL Hct (39.0-53.0) % MCV (80.0-100.0) fL MCH (25.0-35.0) pg MCHC (31.0-37.0) g/dL RDW (11.5-15.5) % Plt Count (150-450) k/uL MPV Neutrophils % (Manual) % Band Neuts % (Manual) % Lymphocytes % (Manual) % Monocytes % (Manual) % Eosinophils % (Manual) % Basophils % (Manual) % Metamyelocytes % % Myelocytes % % Neutrophils # (Manual) (1.3-7.7) k/uL Lymphocytes # (Manual) (1.0-4.8) k/uL Monocytes # (Manual) (0-1.0) k/uL Eosinophils # (Manual) (0-0.7) k/uL Basophils # (Manual) (0-0.2) k/uL Metamyelocytes # (Man) (0) k/uL Myelocytes # (Manual) (0) k/uL Nucleated RBCs (0-0) /100 WBC Manual Slide Review Large Platelets Hypochromasia Poikilocytosis Anisocytosis Microcytosis Ovalocytes PT (9.0-12.0) sec INR (<1.2) APTT (22.0-30.0) sec Sodium (137-145) mmol/L Potassium (3.5-5.1) mmol/L Chloride (98-107) mmol/L Carbon Dioxide (22-30) mmol/L Anion Gap mmol/L BUN (9-20) mg/dL Creatinine (0.66-1.25) mg/dL Est GFR (CKD-EPI)AfAm (>60 ml/min/1.73 sqM) Est GFR (CKD-EPI)NonAf (>60 ml/min/1.73 sqM) Glucose (74-99) mg/dL Plasma Lactic Acid Ganesh 2.0 (0.7-2.0) mmol/L Calcium (8.4-10.2) mg/dL Magnesium (1.6-2.3) mg/dL Total Bilirubin (0.2-1.3) mg/dL AST (17-59) U/L ALT (4-49) U/L Alkaline Phosphatase (38-126) U/L Troponin I <0.012 (0.000-0.034) ng/mL NT-Pro-B Natriuret Pep 82713 pg/mL Total Protein (6.3-8.2) g/dL Albumin (3.5-5.0) g/dL Disposition Clinical Impression: Injury of toe, Pneumonia, CHF (congestive heart failure), Leukocytosis, Cough Disposition: ADMITTED IP TO THIS HOSP Referrals: Laurita Sandra MD [Primary Care Provider] - 1-2 days
[2020-03-31] MEDS ORDERED: AZITHROMYCIN 500 MG in SODIUM CHLORIDE 0.9% 250 ML IVPB STA (13:57)
[2020-03-31] MEDS ORDERED: PNEUMONIA PROTOCOL UTILIZED 1 EACH MISC PO PRN (13:57)
[2020-03-31 14:19] LABS: Appearance,Urine Clear (Clear); Bilirubin,Urine Negative (Negative); Blood,Urine Negative (Negative); Color,Urine Yellow; Glucose,Urine (UA) Negative (Negative); Hyaline Casts,Urine 3 /lpf (0-2); Ketones,Urine Negative (Negative); Leukocyte Esterase,Urine Small (Negative); Mucus,Urine Rare /hpf; Nitrite,Urine Negative (Negative); Protein,Urine Trace (Negative); RBC,Urine 1 /hpf (0-5); Specific Gravity,Urine 1.016 (1.001-1.035); Urobilinogen,Urine <2.0 mg/dL (<2.0); WBC,Urine 1 /hpf (0-5)
[2020-03-31] MEDS: SODIUM CHLORIDE 0.9% 1,000 ML IV SCH (14:39)
[2020-03-31 16:38] LABS: Glucose,Whole Blood 117 mg/dL (75-99)
[2020-03-31] MEDS: hydrALAZINE HCL 25 MG TAB PO SCH ×2 (17:56→20:50)
[2020-03-31 20:40] LABS: Glucose,Whole Blood 172 mg/dL (75-99)
[2020-03-31] MEDS: APIXABAN 2.5 MG TABLET PO SCH (20:50)
[2020-03-31] MEDS: METOPROLOL TARTRATE 50 MG TAB PO SCH (20:50)
[2020-03-31] MEDS: GABAPENTIN 300 MG CAP PO SCH (20:50)
[2020-03-31] MEDS: AGRYLIN PO SCH (20:57)
[2020-04-01 06:07] LABS: Glucose,Whole Blood 117 mg/dL (75-99)
[2020-04-01] MEDS: PANTOPRAZOLE 40 MG TABLET PO SCH (06:10)
[2020-04-01] MEDS: METOPROLOL TARTRATE 50 MG TAB PO SCH ×2 (06:43→20:40)
[2020-04-01] MEDS: hydrALAZINE HCL 25 MG TAB PO SCH ×3 (08:35→20:40)
[2020-04-01] MEDS: AGRYLIN PO SCH ×2 (08:40→20:41)
[2020-04-01] MEDS: LINAGLIPTIN 5 MG TABLET PO SCH (08:40)
[2020-04-01] MEDS: allopurinoL 300 MG TAB PO SCH (08:40)
[2020-04-01] MEDS: ATORVASTATIN 20 MG TAB PO SCH (08:40)
[2020-04-01] MEDS: APIXABAN 2.5 MG TABLET PO SCH ×2 (08:40→20:40)
[2020-04-01] MEDS: GABAPENTIN 300 MG CAP PO SCH ×2 (08:40→20:40)
[2020-04-01] MEDS: AZITHROMYCIN 500 MG TAB PO SCH (08:40)
[2020-04-01 08:48] LABS: Calcium 9.1 mg/dL (8.4-10.2); Potassium 5.1 mmol/L (3.5-5.1)
[2020-04-01] MEDS: SODIUM CHLORIDE 0.9% 1,000 ML IV SCH (09:00)
--- NOTE | 2020-04-01 11:01 | P.NPCON ---
History of Present Illness - Reason for Consult acute renal failure, chronic renal failure - History of Present Illness Reason for consultation: Acute kidney injury on chronic kidney disease History of present illness: Patient is a 84-year-old male seen in renal consultation for acute kidney injury on chronic kidney disease. Patient has chronic kidney disease stage IIIB with baseline creatinine in the range of 1.5-1.7. Etiology is solitary left kidney. Patient presented to the hospital with a bleeding toe. He had stopped the toe and he came to the hospital due to prolonged bleeding. Hemoglobin 11.0 on admission. Eating seems to have resolved. Patient has history of dementia and is not a reliable historian. This morning his blood pressure is 104/64. Chest x-ray suggestive of CHF. He is currently on 3 L his Blood. Working with physical therapy. No vomiting or diarrhea. No hematuria or dysuria. He does have long-standing history of diabetes. He was started on IV Lasix is morning. I don't see any nonsteroidals and his home medications. He is also maintained on normal saline at 50 mL an hour. Patient's echocardiogram from January 2020 revealed ejection fraction of 40-45%. Vital signs are stable. General: The patient appeared well nourished and normally developed. HEENT: Head exam is unremarkable. Neck is without jugular venous distension. LUNGS: Breath sounds decreased. HEART: Rate and Rhythm are regular. ABDOMEN: Soft, nontender. EXTREMITITES: Trace edema. 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, UTI, gout, PAD, diverticular disease, skin cancer with removals and has more skin cancer to be removed from top of L ear, severe spondylosis of cervical spine, chonic back/cervical pain, rheumatic fever as a child History of Any Multi-Drug Resistant Organisms: None Reported Past Surgical History: Adenoidectomy, Hernia Repair, Joint Replacement, Orthopedic Surgery, Tonsillectomy Additional Past Surgical History / Comment(s): R kidney donor, kiesha hip replacement, L hand trigger finger, uvuloplasty, left carotid stent, L inguinal hernia repair, deviated septum repair, colonoscopy, R cataract removal with lens, skin cancer removals, pain procedures. Past Anesthesia/Blood Transfusion Reactions: No Reported Reaction Smoking Status: Never smoker - Past Family History Father Family Medical History: CVA/TIA Additional Family Medical History / Comment(s): Father of a CVA at the age of 80yrs. Mother Family Medical History: No Reported History Additional Family Medical History / Comment(s): Mother at age 55 from polycystic kidney disease. Brother(s) Additional Family Medical History / Comment(s): Patient has 1 brother with multiple medical problems including diabetes. Sister(s) Family Medical History: Renal Disease Additional Family Medical History / Comment(s): Patient has one sister that at age 60 from kidney failure due to polycystic kidney disease. Daughter(s) Family Medical History: No Reported History Additional Family Medical History / Comment(s): Patient has one daughter with no major medical problems. Son(s) Additional Family Medical History / Comment(s): Patient has 5 sons. 2 at premature . One while skiing from a myocardial infarction at age 32. One son is alive with no major medical problems. Medications and Allergies Home Medications Medication Instructions Recorded Confirmed Type allopurinoL [Zyloprim] 300 mg PO DAILY 09/01/13 03/31/20 History EPINEPHrine (Auto Inject) [Epipen] 0.3 mg IM ONCE PRN 01/06/17 03/31/20 History Gabapentin [Neurontin] 300 mg PO BID 06/13/17 03/31/20 History Pantoprazole Sodium [Protonix] 40 mg PO AC-BRKFST 08/04/17 03/31/20 History Atorvastatin Calcium [Lipitor] 20 mg PO DAILY 08/14/19 03/31/20 History Apixaban [Eliquis] 2.5 mg PO BID #60 tablet 11/11/19 03/31/20 Rx Anagrelide HCl 1 mg PO BID 02/07/20 03/31/20 History Furosemide [Lasix] 40 mg PO MOWEFR 02/07/20 03/31/20 History Linagliptin [Tradjenta] 5 mg PO DAILY 03/31/20 03/31/20 History Metoprolol Tartrate [Lopressor] 50 mg PO BID 03/31/20 03/31/20 History hydrALAZINE HCL [Apresoline] 25 mg PO TID 03/31/20 03/31/20 History Allergies Allergy/AdvReac Type Severity Reaction Status Date / Time venom-honey bee Allergy Anaphylaxis Verified 03/31/20 13:39 [bee venom (honey bee)] donepezil [From Aricept] AdvReac Diarrhea Verified 03/31/20 13:39 rivastigmine AdvReac Rash/Hives Verified 03/31/20 13:39 Physical Exam Vitals: Vital Signs Temp Pulse Pulse Resp BP BP Pulse Ox 04/01/20 08:00 98.2 F 124 H 20 104/64 97 04/01/20 06:42 150 H 105/73 04/01/20 03:47 97.8 F 111 H 16 145/67 98 04/01/20 02:40 111 H 16 03/31/20 23:08 97.7 F 120 H 16 106/61 93 L 03/31/20 20:06 97.5 F L 131 H 16 124/77 97 03/31/20 16:00 97.5 F L 103 H 19 105/61 98 03/31/20 12:55 108 H 16 136/79 96 03/31/20 11:45 110 H 18 93 L 03/31/20 11:24 98.0 F 71 18 96/65 84 L Intake and Output 03/31/20 04/01/20 04/01/20 22:59 06:59 14:59 Intake Total 180 Output Total 225 225 Balance 180 -225 -225 Intake: Oral 180 Output: Urine 225 225 Other: Voiding Method Urinal Urinal Urinal Incontinent Incontinent Incontinent # Voids 1 1 1 # Bowel Movements 1 1 Weight 92.986 kg 90 kg Results - Lab Results Most recent lab results Calcium 9.1 mg/dL (8.4-10.2) 04/01/20 08:18 Magnesium 2.0 mg/dL (1.6-2.3) 04/01/20 08:18 03/31/20 12:10 04/01/20 08:18 Assessment and Plan Plan: Assessment: 1. Acute kidney injury mostly prerenal secondary to hypotension. Also component of cardiorenal syndrome. Creatinine was 3 on admission and is 2.5 today. 2. Chronic kidney disease stage IIIB with baseline creatinine in the range of 1.5-1.8 secondary to solitary left kidney and nephrosclerosis. 3. History of right nephrectomy. 4. Acute on chronic systolic CHF with ejection fraction of 40-45%. 5. Metabolic acidosis secondary to acute kidney injury. 6. Diabetes mellitus. 7. Volume overload. Plan: Hep-Lock IV fluids. Check renal ultrasound. Maintain IV Lasix 40 mg once daily. Add oral sodium bicarbonate. Monitor bladder scans to make sure no urinary retention. Continue to monitor renal function and urine output. Avoid nephrotoxins. Hold hydralazine for systolic blood pressure less than 120. Thank you for the consultation. I will continue to follow the patient with you during his hospital stay.
--- NOTE | 2020-04-01 11:09 | XR ---
EXAMINATION TYPE: XR chest 1V portable DATE OF EXAM: 04/01/2020 COMPARISON: 03/31/2020 HISTORY: Shortness of breath TECHNIQUE: Single frontal view of the chest is obtained. FINDINGS: There is cardiomegaly with diffuse interstitial pattern bilateral consolidation with pleur al effusion. Atherosclerotic change aorta. Arthropathy of the shoulders. IMPRESSION: Correlate for mild CHF otherwise consider pneumonia.
[2020-04-01] MEDS: FUROSEMIDE 10 MG/ML 4 ML VIAL IV SCH (11:52)
[2020-04-01] MEDS: SODIUM BICARBONATE TAB 650 MG TAB PO SCH ×3 (11:52→20:40)
[2020-04-01 12:14] LABS: Glucose,Whole Blood 138 mg/dL (75-99)
--- NOTE | 2020-04-01 12:28 | US ---
EXAMINATION TYPE: US kidneys/renal and bladder DATE OF EXAM: 04/01/2020 COMPARISON: CT 2018 CLINICAL HISTORY: axel. EXAM MEASUREMENTS: Right Kidney: Surgically absent Left Kidney: 13.2 x 7.6 x 7.4 cm Right Kidney: Surgically absent Left Kidney: Lobular contour Bladder: not well distended Bilateral Jets seen: No No hydronephrosis or nephrolithiasis. Lobulated cortex of the left kidney with cortical medullary dif ferentiation preserved. There is cortical thinning compatible with chronic medical renal disease. Jay dder limited by incomplete distention. IMPRESSION: Left renal cortical thinning correlate for chronic medical renal disease.
--- NOTE | 2020-04-01 14:29 | P.CNPUL ---
History of Present Illness Consult date: 04/01/20 Requesting physician: Laurita Sandra Reason for consult: dyspnea, abnormal CXR/CT Chief complaint: Injury to the right fifth toe with bleeding History of present illness: This is an 84-year-old male patient who has a history of hyperlipidemia, hypertension, gastroesophageal reflux disease, chronic renal disease, dementia, CVA amended diverticulitis, GI bleed, kidney donor of the right kidney is a nticoagulated with Eliquis. He was brought into the emergency room yesterday after stubbing his right fifth toe and unable to stop the bleeding. He was also found to be hypoxic on room air and his chest x-ray revealed evidence of fluid volume overload/CHF. He was admitted for the same. He is seen today in consultation on the selective care unit. He is currently resting comfortably in bed. Awake and alert in no acute distress. Currently maintaining O2 saturations in the upper 90s on 3 L/m per nasal cannula. He is afebrile. He is tachycardic in the 120s, atrial fibrillation. White count 29.0. Hemoglobin 11.0. Sodium 142. Potassium 5.1. Creatinine 2.52. Pro-calcitonin 0.38. ProB [employer] 14,100. Troponin negative 1. Hightower virus not detected. He has been initiated on azithromycin and ceftriaxone. No diuretics. Review of Systems REVIEW OF SYSTEMS: CONSTITUTIONAL: Denies any recent significant weight loss or weight gain. EYES: Denies change in vision. EARS, NOSE, MOUTH, THROAT: Denies headaches, denies sore throat. CARDIOVASCULAR: Denies chest pain, palpitations or syncopal episodes. RESPIRATORY: Positive for shortness of breath, no cough, congestion or hemoptysis. GASTROINTESTINAL: Denies change in appetite, denies abdominal pain GENITOURINARY: Denies hematuria, denies infections. MUSKULOSKELETAL: Denies pain, denies swelling. INTEGUMENTARY: Injury to right fifth toe. Denies rash, denies eczema. NEUROLOGICAL: Denies recent memory loss, no recent seizure activity. PSYCHIATRIC: Denies anxiety, denies depression. HEMATOLOGIC/LYMPHATIC: Denies anemia, denies enlarged lymph nodes. 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, UTI, gout, PAD, diverticular disease, skin cancer with removals and has more skin cancer to be removed from top of L ear, severe spondylosis of cervical spine, chonic back/cervical pain, rheumatic fever as a child History of Any Multi-Drug Resistant Organisms: None Reported Past Surgical History: Adenoidectomy, Hernia Repair, Joint Replacement, Orthopedic Surgery, Tonsillectomy Additional Past Surgical History / Comment(s): R kidney donor, kiesha hip replacement, L hand trigger finger, uvuloplasty, left carotid stent, L inguinal hernia repair, deviated septum repair, colonoscopy, R cataract removal with lens, skin cancer removals, pain procedures. Past Anesthesia/Blood Transfusion Reactions: No Reported Reaction Smoking Status: Never smoker - Past Family History Father Family Medical History: CVA/TIA Additional Family Medical History / Comment(s): Father of a CVA at the age of 80yrs. Mother Family Medical History: No Reported History Additional Family Medical History / Comment(s): Mother at age 55 from polycystic kidney disease. Brother(s) Additional Family Medical History / Comment(s): Patient has 1 brother with multiple medical problems including diabetes. Sister(s) Family Medical History: Renal Disease Additional Family Medical History / Comment(s): Patient has one sister that at age 60 from kidney failure due to polycystic kidney disease. Daughter(s) Family Medical History: No Reported History Additional Family Medical History / Comment(s): Patient has one daughter with no major medical problems. Son(s) Additional Family Medical History / Comment(s): Patient has 5 sons. 2 at premature . One while skiing from a myocardial infarction at age 32. One son is alive with no major medical problems. Medications and Allergies Home Medications Medication Instructions Recorded Confirmed Type allopurinoL [Zyloprim] 300 mg PO DAILY 09/01/13 03/31/20 History EPINEPHrine (Auto Inject) [Epipen] 0.3 mg IM ONCE PRN 01/06/17 03/31/20 History Gabapentin [Neurontin] 300 mg PO BID 06/13/17 03/31/20 History Pantoprazole Sodium [Protonix] 40 mg PO AC-BRKFST 08/04/17 03/31/20 History Atorvastatin Calcium [Lipitor] 20 mg PO DAILY 08/14/19 03/31/20 History Apixaban [Eliquis] 2.5 mg PO BID #60 tablet 11/11/19 03/31/20 Rx Anagrelide HCl 1 mg PO BID 02/07/20 03/31/20 History Furosemide [Lasix] 40 mg PO MOWEFR 02/07/20 03/31/20 History Linagliptin [Tradjenta] 5 mg PO DAILY 03/31/20 03/31/20 History Metoprolol Tartrate [Lopressor] 50 mg PO BID 03/31/20 03/31/20 History hydrALAZINE HCL [Apresoline] 25 mg PO TID 03/31/20 03/31/20 History Allergies Allergy/AdvReac Type Severity Reaction Status Date / Time venom-honey bee Allergy Anaphylaxis Verified 03/31/20 13:39 [bee venom (honey bee)] donepezil [From Aricept] AdvReac Diarrhea Verified 03/31/20 13:39 rivastigmine AdvReac Rash/Hives Verified 03/31/20 13:39 Physical Exam Vitals: Vital Signs Temp Pulse Resp BP Pulse Ox 04/01/20 08:00 98.2 F 124 H 20 104/64 97 04/01/20 06:42 150 H 105/73 04/01/20 03:47 97.8 F 111 H 16 145/67 98 04/01/20 02:40 111 H 16 03/31/20 23:08 97.7 F 120 H 16 106/61 93 L 03/31/20 20:06 97.5 F L 131 H 16 124/77 97 03/31/20 16:00 97.5 F L 103 H 19 105/61 98 Intake and Output 03/31/20 04/01/20 04/01/20 22:59 06:59 14:59 Intake Total 180 Output Total 225 225 Balance 180 -225 -225 Intake: Oral 180 Output: Urine 225 225 Other: Voiding Method Urinal Urinal Urinal Incontinent Incontinent Incontinent # Voids 1 1 1 # Bowel Movements 1 1 Weight 92.986 kg 90 kg GENERAL EXAM: Alert, frail, cachectic 84-year-old gentleman, on 3 liters per nasal cannula, comfortable in no apparent distress. HEAD: Normocephalic. EYES: Normal reaction of pupils, equal size. NOSE: Clear with pink turbinates. THROAT: No erythema or exudates. NECK: No masses, no JVD. CHEST: No chest wall deformity. LUNGS: Equal air entry with crackles in the bilateral posterior bases. CVS: S1 and S2 normal with no audible murmur, irregular rhythm. Tachycardic. ABDOMEN: No hepatosplenomegaly, normal bowel sounds, no guarding or rigidity. SPINE: No scoliosis or deformity SKIN: No rashes CENTRAL NERVOUS SYSTEM: No focal deficits, tone is normal in all 4 extremities. EXTREMITIES: Bruising to the right fifth toe. There is no peripheral edema. No clubbing, no cyanosis. Peripheral pulses are intact. Results - Laboratory Findings CBC and BMP: 03/31/20 12:10 04/01/20 08:18 PT/INR, D-dimer PT 15.1 sec (9.0-12.0) H 03/31/20 12:10 INR 1.5 (<1.2) H 03/31/20 12:10 Abnormal lab findings: Abnormal Labs 03/31/20 03/31/20 03/31/20 12:10 12:10 12:10 WBC 29.0 H RBC 4.06 L Hgb 11.0 L Hct 34.4 L RDW 22.6 H Neutrophils # (Manual) 20.80 H Monocytes # (Manual) 2.03 H Eosinophils # (Manual) 1.16 H Basophils # (Manual) 0.29 H Metamyelocytes # (Man) 0.87 H Myelocytes # (Manual) 1.45 H Nucleated RBCs 1 H PT 15.1 H INR 1.5 H Potassium 5.4 H Chloride 115 H Carbon Dioxide 14 L BUN 86 H Creatinine 3.00 H Glucose 145 H POC Glucose (mg/dL) Total Protein 5.7 L Albumin 2.9 L Procalcitonin Urine Protein Ur Leukocyte Esterase Hyaline Casts Urine Mucus 03/31/20 03/31/20 03/31/20 12:10 13:43 16:36 WBC RBC Hgb Hct RDW Neutrophils # (Manual) Monocytes # (Manual) Eosinophils # (Manual) Basophils # (Manual) Metamyelocytes # (Man) Myelocytes # (Manual) Nucleated RBCs PT INR Potassium Chloride Carbon Dioxide BUN Creatinine Glucose POC Glucose (mg/dL) 117 H Total Protein Albumin Procalcitonin 0.38 H Urine Protein Trace H Ur Leukocyte Esterase Small H Hyaline Casts 3 H Urine Mucus Rare H 03/31/20 04/01/20 04/01/20 20:39 06:05 08:18 WBC RBC Hgb Hct RDW Neutrophils # (Manual) Monocytes # (Manual) Eosinophils # (Manual) Basophils # (Manual) Metamyelocytes # (Man) Myelocytes # (Manual) Nucleated RBCs PT INR Potassium Chloride 116 H Carbon Dioxide 16 L BUN 81 H Creatinine 2.52 H Glucose 157 H POC Glucose (mg/dL) 172 H 117 H Total Protein Albumin Procalcitonin Urine Protein Ur Leukocyte Esterase Hyaline Casts Urine Mucus 04/01/20 12:11 WBC RBC Hgb Hct RDW Neutrophils # (Manual) Monocytes # (Manual) Eosinophils # (Manual) Basophils # (Manual) Metamyelocytes # (Man) Myelocytes # (Manual) Nucleated RBCs PT INR Potassium Chloride Carbon Dioxide BUN Creatinine Glucose POC Glucose (mg/dL) 138 H Total Protein Albumin Procalcitonin Urine Protein Ur Leukocyte Esterase Hyaline Casts Urine Mucus - Diagnostic Findings Chest x-ray: image reviewed Assessment and Plan Assessment: 1 Injury to the right fifth toe with uncontrolled bleeding. Recovered 2 Atrial fibrillation, anticoagulated with Eliquis 3 Acute exacerbation of chronic systolic congestive heart failure, ejection fraction 40-45%. 4 Acute hypoxic respiratory failure secondary to above, cannot rule out underlying pneumonia. 5 Leukocytosis 6 Acute on chronic kidney disease 7 Dementia 8 CVA 9 Hypertension 10 Hyperlipidemia 11 Gastroesophageal reflux disease 12 Right kidney donor 13 Poor overall functional performance based on the above-mentioned multiple comorbidities Plan: The patient was seen and evaluated by Dr. Platt Chest x-ray and labs reviewed Lasix 40 mg IVP daily Continue antibiotics in form of ceftriaxone and azithromycin Anticoagulated with Eliquis We will continue to follow and make further recommendations based on his clinical status I, the cosigning physician, performed a history & physical examination of the patient. Lungs sounds basilar crackles. Maintaining good O2 saturations in the 90s on 3 L/m per nasal cannula. I discussed the assessment and plan of care with my nurse practitioner, Nasima Hadley. I attest to the above note as dictated by her. Time with Patient: Greater than 30
--- NOTE | 2020-04-01 16:54 | P.HPIM ---
History of Present Illness H&P Date: 04/01/20 This is an 84-year-old male one of my patient with a previous medical history significant for hypertension and hypertensive cardio vascular disease, hyperlipidemia, chronic kidney disease stage III, history of essential thrombocytosis, history of severe spondylosis of the cervical spine, history of proximal atrial fib relation, was recently hospitalized in August 2019 where he was found to have multilobar pulmonary emboli and he was started on Eliquis 5 mg orally twice every day, and it was doubtful for whether or not to keep the patient on anticoagulation because of recurrent falls and increased risk of bleeding, eventually the decision was made to keep the patient on outpatient thi s point in time, he was seen in the office 3 weeks when he was found to have a significant macrocytosis with MCV of 120 with significant suppression of the bone marrow due to the use of Hydrea with leukopenia as well as from cytopenia and he was not sure 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 Moreno , his oncologist as an outpatient which she did and he was kept off Hydrea and he was supposed to go back in 2 weeks for repeat CBC and possible bone marrow biopsy for possible bone marrow disease patient was recently hospitalized at [facility] with atrial fibrillation and rapid ventricular response and he went home, patient was seen in the emergency department yesterday after a fall at home when he stubbed his right fifth toe and fell on the right knee as well, he was found to be hypoxemic with oxygen saturation in the low 80s, his chest x-ray showed pulmonary vascular congestion, his BUN was elevated as well as his creatinine, there was questionable pneumonia he was started on IV antibiotic in the form of Rocephin and Zithromax and he was started on oxygen and was placed on Lasix 40 mg IV push every 24 hours, after he was placed on normal saline at 50 mL an hour for home patient was seen in consultation by pulmonary medicine as well as by nephrology for further evaluation and treatment . Review of Systems Constitutional: Reports anorexia, Reports fatigue, Reports malaise, Reports weakness, Reports weight loss Eyes: bilateral blurred vision, bilateral decreased vision, denies bulging eye Ears, nose, mouth and throat: Denies dysphagia, Denies neck lump, Denies sore throat Cardiovascular: Reports decreased exercise tolerance, Reports dyspnea on exertion, Reports high blood pressure, Reports irregular heart beat, Reports leg edema, Reports lightheadedness, Reports rapid heart beat, Reports shortness of breath, Denies chest pain, Denies syncope Respiratory: Reports congestion, Reports cough, Reports cough with sputum, Reports sleep apnea, Reports wheezing, Denies home oxygen, Denies snoring Gastrointestinal: Reports diarrhea, Reports loss of appetite, Reports nausea, Denies abdominal pain, Denies bloating, Denies BRBPR, Denies heartburn, Denies melena, Denies vomiting Genitourinary: Reports incontinence, Reports nocturia, Denies dysuria Musculoskeletal: Reports atrophy, Reports frequent falls, Reports gait dysfunction, Reports low back pain, Reports neck stiffness, Reports shooting leg pain Musculoskeletal: right: foot pain, foot stiffness, absent: ankle pain, ankle stiffness, ankle swelling, elbow pain, elbow stiffness, elbow swelling, foot swelling, hand pain, hand stiffness, hand swelling, hip pain, hip stiffness, hip swelling, knee pain, knee stiffness, knee swelling, shoulder pain, shoulder stiffness, shoulder swelling, wrist pain, wrist stiffness, wrist swelling Integumentary: Reports wounds (Right fifth toe skin laceration with bruising.), Denies pruritus, Denies rash Neurological: Reports change in mentation, Reports confusion, Reports memory loss, Reports weakness, Reports visual changes, Denies head injury Psychiatric: Reports anxiety, Reports depression, Reports memory loss, Denies sadness/tearfulness, Denies sleep disturbances, Denies suicidal ideation Endocrine: Denies fatigue, Denies weight change 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, UTI, gout, PAD, diverticular disease, skin cancer with removals and has more skin cancer to be removed from top of L ear, severe spondylosis of cervical spine, chonic back/cervical pain, rheumatic fever as a child History of Any Multi-Drug Resistant Organisms: None Reported Past Surgical History: Adenoidectomy, Hernia Repair, Joint Replacement, Orthopedic Surgery, Tonsillectomy Additional Past Surgical History / Comment(s): R kidney donor, kiesha hip replacement, L hand trigger finger, uvuloplasty, left carotid stent, L inguinal hernia repair, deviated septum repair, colonoscopy, R cataract removal with lens, skin cancer removals, pain procedures. Past Anesthesia/Blood Transfusion Reactions: No Reported Reaction Smoking Status: Never smoker - Past Family History Father Family Medical History: CVA/TIA Additional Family Medical History / Comment(s): Father of a CVA at the age of 80yrs. Mother Family Medical History: No Reported History Additional Family Medical History / Comment(s): Mother at age 55 from polycystic kidney disease. Brother(s) Additional Family Medical History / Comment(s): Patient has 1 brother with multiple medical problems including diabetes. Sister(s) Family Medical History: Renal Disease Additional Family Medical History / Comment(s): Patient has one sister that at age 60 from kidney failure due to polycystic kidney disease. Daughter(s) Family Medical History: No Reported History Additional Family Medical History / Comment(s): Patient has one daughter with no major medical problems. Son(s) Additional Family Medical History / Comment(s): Patient has 5 sons. 2 at premature . One while skiing from a myocardial infarction at age 32. One son is alive with no major medical problems. Medications and Allergies Home Medications Medication Instructions Recorded Confirmed Type allopurinoL [Zyloprim] 300 mg PO DAILY 09/01/13 03/31/20 History EPINEPHrine (Auto Inject) [Epipen] 0.3 mg IM ONCE PRN 01/06/17 03/31/20 History Gabapentin [Neurontin] 300 mg PO BID 06/13/17 03/31/20 History Pantoprazole Sodium [Protonix] 40 mg PO [id number] 08/04/17 03/31/20 History Atorvastatin Calcium [Lipitor] 20 mg PO DAILY 08/14/19 03/31/20 History Apixaban [Eliquis] 2.5 mg PO BID #60 tablet 11/11/19 03/31/20 Rx Anagrelide HCl 1 mg PO BID 02/07/20 03/31/20 History Furosemide [Lasix] 40 mg PO MOWEFR 02/07/20 03/31/20 History Linagliptin [Tradjenta] 5 mg PO DAILY 03/31/20 03/31/20 History Metoprolol Tartrate [Lopressor] 50 mg PO BID 03/31/20 03/31/20 History hydrALAZINE HCL [Apresoline] 25 mg PO TID 03/31/20 03/31/20 History Allergies Allergy/AdvReac Type Severity Reaction Status Date / Time venom-honey bee Allergy Anaphylaxis Verified 03/31/20 13:39 [bee venom (honey bee)] donepezil [From Aricept] AdvReac Diarrhea Verified 03/31/20 13:39 rivastigmine AdvReac Rash/Hives Verified 03/31/20 13:39 Physical Exam Vitals: Vital Signs Temp Pulse Pulse Resp BP BP Pulse Ox 04/01/20 06:42 150 H 105/73 04/01/20 03:47 97.8 F 111 H 16 145/67 98 04/01/20 02:40 111 H 16 03/31/20 23:08 97.7 F 120 H 16 106/61 93 L 03/31/20 20:06 97.5 F L 131 H 16 124/77 97 03/31/20 16:00 97.5 F L 103 H 19 105/61 98 03/31/20 12:55 108 H 16 136/79 96 03/31/20 11:45 110 H 18 93 L 03/31/20 11:24 98.0 F 71 18 96/65 84 L Intake and Output 03/31/20 04/01/20 04/01/20 22:59 06:59 14:59 Intake Total 180 Output Total 225 Balance 180 -225 Intake: Oral 180 Output: Urine 225 Other: Voiding Method Urinal Urinal Incontinent Incontinent # Voids 1 1 # Bowel Movements 1 Weight 92.986 kg 90 kg Physical examination: HEENT: Head is atraumatic, normocephalic, pupils were equal round reactive to light and accommodation, extraocular muscle movement were intact, sclera nonicteric, conjunctivae were., Mucous membranes of the mouth are somewhat dry. Neck: Supple, no JVD, decreased carotid upstroke bilaterally. Chest: Decreased breath sounds at the bases, few rhonchi and expiratory wheezes no chest wall tenderness no intercostal retractions. Heart: First heart sound is depressed, second heart sound is normal, irregularly irregular, there is systolic murmur 2/6 located in the left sternal border. Abdomen: Soft, nontender, nondistended, positive bowel sounds. Extremities: +1 edema no calf tenderness, dorsalis pedis +1 bilaterally. Neurologic exoneration: Patient is awake alert and oriented 2, cranial nerves 3-12 appear grossly intact, muscle power were 4 out of 5 in upper extremities and 3 out of 5 in bilateral lower extremities Results CBC & Chem 7: 03/31/20 12:10 04/01/20 08:18 Labs: Abnormal Lab Results - Last 24 Hours (Table) 03/31/20 03/31/20 03/31/20 Range/Units 12:10 12:10 12:10 WBC 29.0 H (3.8-10.6) k/uL RBC 4.06 L (4.30-5.90) m/uL Hgb 11.0 L (13.0-17.5) gm/dL Hct 34.4 L (39.0-53.0) % RDW 22.6 H (11.5-15.5) % Neutrophils # (Manual) 20.80 H (1.3-7.7) k/uL Monocytes # (Manual) 2.03 H (0-1.0) k/uL Eosinophils # (Manual) 1.16 H (0-0.7) k/uL Basophils # (Manual) 0.29 H (0-0.2) k/uL Metamyelocytes # (Man) 0.87 H (0) k/uL Myelocytes # (Manual) 1.45 H (0) k/uL Nucleated RBCs 1 H (0-0) /100 WBC PT 15.1 H (9.0-12.0) sec INR 1.5 H (<1.2) Potassium 5.4 H (3.5-5.1) mmol/L Chloride 115 H (98-107) mmol/L Carbon Dioxide 14 L (22-30) mmol/L BUN 86 H (9-20) mg/dL Creatinine 3.00 H (0.66-1.25) mg/dL Glucose 145 H (74-99) mg/dL POC Glucose (mg/dL) (75-99) mg/dL Total Protein 5.7 L (6.3-8.2) g/dL Albumin 2.9 L (3.5-5.0) g/dL Procalcitonin (0.02-0.09) ng/mL Urine Protein (Negative) Ur Leukocyte Esterase (Negative) Hyaline Casts (0-2) /lpf Urine Mucus (None) /hpf 03/31/20 03/31/20 03/31/20 Range/Units 12:10 13:43 16:36 WBC (3.8-10.6) k/uL RBC (4.30-5.90) m/uL Hgb (13.0-17.5) gm/dL Hct (39.0-53.0) % RDW (11.5-15.5) % Neutrophils # (Manual) (1.3-7.7) k/uL Monocytes # (Manual) (0-1.0) k/uL Eosinophils # (Manual) (0-0.7) k/uL Basophils # (Manual) (0-0.2) k/uL Metamyelocytes # (Man) (0) k/uL Myelocytes # (Manual) (0) k/uL Nucleated RBCs (0-0) /100 WBC PT (9.0-12.0) sec INR (<1.2) Potassium (3.5-5.1) mmol/L Chloride (98-107) mmol/L Carbon Dioxide (22-30) mmol/L BUN (9-20) mg/dL Creatinine (0.66-1.25) mg/dL Glucose (74-99) mg/dL POC Glucose (mg/dL) 117 H (75-99) mg/dL Total Protein (6.3-8.2) g/dL Albumin (3.5-5.0) g/dL Procalcitonin 0.38 H (0.02-0.09) ng/mL Urine Protein Trace H (Negative) Ur Leukocyte Esterase Small H (Negative) Hyaline Casts 3 H (0-2) /lpf Urine Mucus Rare H (None) /hpf 03/31/20 04/01/20 Range/Units 20:39 06:05 WBC (3.8-10.6) k/uL RBC (4.30-5.90) m/uL Hgb (13.0-17.5) gm/dL Hct (39.0-53.0) % RDW (11.5-15.5) % Neutrophils # (Manual) (1.3-7.7) k/uL Monocytes # (Manual) (0-1.0) k/uL Eosinophils # (Manual) (0-0.7) k/uL Basophils # (Manual) (0-0.2) k/uL Metamyelocytes # (Man) (0) k/uL Myelocytes # (Manual) (0) k/uL Nucleated RBCs (0-0) /100 WBC PT (9.0-12.0) sec INR (<1.2) Potassium (3.5-5.1) mmol/L Chloride (98-107) mmol/L Carbon Dioxide (22-30) mmol/L BUN (9-20) mg/dL Creatinine (0.66-1.25) mg/dL Glucose (74-99) mg/dL POC Glucose (mg/dL) 172 H 117 H (75-99) mg/dL Total Protein (6.3-8.2) g/dL Albumin (3.5-5.0) g/dL Procalcitonin (0.02-0.09) ng/mL Urine Protein (Negative) Ur Leukocyte Esterase (Negative) Hyaline Casts (0-2) /lpf Urine Mucus (None) /hpf Thrombosis Risk Factor Assmnt - DVT/VTE Prophylaxis DVT/VTE Prophylaxis: Pharmacologic Prophylaxis ordered, Mechanical Prophylaxis ordered - Choose All That Apply Any of the Below Risk Factors Present?: Yes Each Factor Represents 1 point: Heart failure (<1month), Serious lung disease in cl. pneumonia (< 1month), Swollen legs (current) Other Risk Factors: Yes Each Risk Factor Represents 3 Points: Age 75 years or older, History of DVT/PE Other congenital or acquired thrombophilia - If yes, enter type in comment: No Thrombosis Risk Factor Assessment Total Risk Factor Score: 9 Thrombosis Risk Factor Assessment Level: High Risk Assessment and Plan Assessment: Assessment and plan: 1. Acute kidney injury and top of chronic kidney disease stage IIIB. Discontinue IV fluid at this time start the patient on Lasix 40 mg IV push every 24 hours, monitor input and output and daily weight, monitor for urinary retention, nephrology consultation. Patient will be started on sodium bicarbonate 650 mg orally twice every day. Monitor his CMP. 2. Acute hypoxic respiratory failure secondary to left lower lobe pneumonia and acute systolic heart failure. Continue Lasix 40 mg IV push every 24 hours, continue metoprolol 50 mg orally twice every day, continue Rocephin 1 g IV piggyback every 24 hours, Zithromax 250 mg orally once every day, Pulmicort consultation from Dr. Platt. 3. History of multilobar pulmonary emboli. We'll continue with Eliquis 2.5 mg orally twice every day for life. 4. Essential thrombocytosis. We will continue with anagrelide 1 mg orally twice every day. 5. Hypertension and hypertensive cardiovascular disease. Continue metoprolol 50 mg orally twice every day and hydralazine 25 mg orally 3 times every day. 6. History of gout. Continue allopurinol 300 mg orally once every day. 7. Acute and chronic kidney disease stage II. His creatinine is back to baseline. 8. Paroxysmal atrial fibrillation. Continue metoprolol 50 mg orally twice every day, continue Eliquis 2.5 mg orally twice every day 9. Peripheral neuropathy. Continue gabapentin 300 mg orally twice every day. 10. Vascular dementia. Continue Aricept 5 mg orally bedtime. 11. Mixed hyperlipidemia. Continue Lipitor 20 mg orally once every day. 12. Spondylosis of the cervical spine. Continue gabapentin 300 mg orally twice every day. 13. DVT prophylaxis. Continue patient on Eliquis 2.5 mg orally twice every day. 14. GI prophylaxis. Continue patient on Protonix 40 mg orally once every day. 15. Admit to inpatient. Estimate a length of stay 2 midnights. 16. Patient is full code. 17. Physical therapy evaluation. 18. Guarded prognosis per
[2020-04-01 16:55] LABS: Glucose,Whole Blood 117 mg/dL (75-99)
[2020-04-01 20:09] LABS: Glucose,Whole Blood 121 mg/dL (75-99)
[2020-04-02] MEDS: PANTOPRAZOLE 40 MG TABLET PO SCH (06:25)
[2020-04-02 06:43] LABS: Glucose,Whole Blood 119 mg/dL (75-99)
[2020-04-02 07:39] LABS: Anisocytosis Moderate; HCT 33.2 % (39.0-53.0); HGB 10.2 gm/dL (13.0-17.5); Hypochromasia Marked; MCH 26.1 pg (25.0-35.0); MCHC 30.6 g/dL (31.0-37.0); MCV 85.5 fL (80.0-100.0); Mean Platelet Volume 12.4; Microcytosis Slight; Platelet Count 382 k/uL (150-450); Poikilocytosis Slight; RBC 3.89 m/uL (4.30-5.90); RDW 22.5 % (11.5-15.5)
[2020-04-02 07:46] LABS: Albumin 2.7 g/dL (3.5-5.0); Calcium 8.9 mg/dL (8.4-10.2); Magnesium 1.9 mg/dL (1.6-2.3); Potassium 4.6 mmol/L (3.5-5.1); Total Bilirubin 0.8 mg/dL (0.2-1.3); Total Protein 5.4 g/dL (6.3-8.2)
[2020-04-02 08:02] LABS: Band Neutrophils % 8 %; Eosinophils # (M) 0.54 k/uL (0-0.7); Lymphocytes # (M) 0.54 k/uL (1.0-4.8); Metamyelocytes # (M) 1.08 k/uL (0); Metamyelocytes % 4 %; Monocytes # (M) 1.08 k/uL (0-1.0); Myelocytes # (M) 1.08 k/uL (0); Myelocytes % 4 %; Neutrophils % (M) 78 %; Nucleated Red Blood Cells 0 /100 WBC (0-0); Total Cells Counted 200
[2020-04-02 08:03] LABS: Large Platelets Present; Ovalocytes Present; Toxic Granulation Present
[2020-04-02] MEDS: allopurinoL 300 MG TAB PO SCH (09:05)
[2020-04-02] MEDS: GABAPENTIN 300 MG CAP PO SCH ×2 (09:05→20:18)
[2020-04-02] MEDS: APIXABAN 2.5 MG TABLET PO SCH ×2 (09:05→20:18)
[2020-04-02] MEDS: METOPROLOL TARTRATE 50 MG TAB PO SCH ×2 (09:05→20:18)
[2020-04-02] MEDS: AZITHROMYCIN 500 MG TAB PO SCH (09:05)
[2020-04-02] MEDS: hydrALAZINE HCL 25 MG TAB PO SCH ×3 (09:05→20:18)
[2020-04-02] MEDS: SODIUM BICARBONATE TAB 650 MG TAB PO SCH ×3 (09:05→20:18)
[2020-04-02] MEDS: ATORVASTATIN 20 MG TAB PO SCH (09:05)
[2020-04-02] MEDS: FUROSEMIDE 10 MG/ML 4 ML VIAL IV SCH (09:06)
[2020-04-02] MEDS: LINAGLIPTIN 5 MG TABLET PO SCH (09:06)
[2020-04-02] MEDS: SODIUM CHLORIDE 0.9% 1,000 ML IV SCH (09:42)
--- NOTE | 2020-04-02 09:59 | P.PN ---
Subjective Progress Note Date: 04/02/20 This is an 84-year-old male one of my patient with a previous medical history significant for hypertension and hypertensive cardio vascular disease, hyperlipidemia, chronic kidney disease stage III, history of essential thrombocytosis, history of severe spondylosis of the cervical spine, history of proximal atrial fib relation, was recently hospitalized in August 2019 where he was found to have multilobar pulmonary emboli and he was started on Eliquis 5 mg orally twice every day, and it was doubtful for whether or not to keep the patient on anticoagulation because of recurrent falls and increased risk of bleeding, eventually the decision was made to keep the patient on outpatient this point in time, he was seen in the office 3 weeks when he was found to have a significant macrocytosis with MCV of 120 with significant suppression of the bone marrow due to the use of Hydrea with leukopenia as well as from cytopenia and he was not sure 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 Moreno , his oncologist as an outpatient which she did and he was kept off Hydrea and he was supposed to go back in 2 weeks for repeat CBC and possible bone marrow biopsy for possible bone marrow disease patient was recently hospitalized at [facility] with atrial fibrillation and rapid ventricular response and he went home, patient was seen in the emergency department yesterday after a fall at home when he stubbed his right fifth toe and fell on the right knee as well, he was found to be hypoxemic with oxygen saturation in the low 80s, his chest x-ray showed pulmonary vascular congestion, his BUN was elevated as well as his creatinine, there was questionable pneumonia he was started on IV antibiotic in the form of Rocephin and Zithromax and he was started on oxygen and was placed on Lasix 40 mg IV push every 24 hours, after he was placed on normal saline at 50 mL an hour for home patient was seen in consultation by pulmonary medicine as well as by nephrology for further evaluation and treatment. 04/02: Patient sitting up in bed he appears to be very confused today, he thought that his [place] today, he was reoriented back that he is in [place], he is eating his breakfast, he denies any chest pain, his lesser above, he has no abdominal pain, nausea vomiting or diarrhea, he appears to be tolerating his treatment very well, he'll be seen in consultation by physical therapy as the patient is extremely weak and he may require subacute rehab physician at this point in time. Objective - Vital Signs Vital signs: Vital Signs Temp 97.5 F L 04/01/20 23:10 Pulse 114 H 04/01/20 23:10 Resp 18 04/02/20 02:00 BP 114/69 04/01/20 23:10 Pulse Ox 97 04/01/20 23:10 Intake & Output 04/01/20 04/02/20 04/02/20 18:59 06:59 18:59 Intake Total 480 Output Total 1125 Balance -645 Weight 90.5 kg Intake: Oral 480 Output: Urine 1125 Other: Voiding Method Urinal Urinal Incontinent Incontinent # Voids 3 # Bowel Movements 1 - Exam Review of Systems Constitutional: Reports anorexia, Reports fatigue, Reports malaise, Reports weakness, Reports weight loss Eyes: bilateral blurred vision, bilateral decreased vision, denies bulging eye Ears, nose, mouth and throat: Denies dysphagia, Denies neck lump, Denies sore throat Cardiovascular: Reports decreased exercise tolerance, Reports dyspnea on exertion, Reports high blood pressure, Reports irregular heart beat, Reports leg edema, Reports lightheadedness, Reports rapid heart beat, Reports shortness of breath, Denies chest pain, Denies syncope Respiratory: Reports congestion, Reports cough, Reports cough with sputum, Reports sleep apnea, Reports wheezing, Denies home oxygen, Denies snoring Gastrointestinal: Reports diarrhea, Reports loss of appetite, Reports nausea, Denies abdominal pain, Denies bloating, Denies BRBPR, Denies heartburn, Denies melena, Denies vomiting Genitourinary: Reports incontinence, Reports nocturia, Denies dysuria Musculoskeletal: Reports atrophy, Reports frequent falls, Reports gait dysfunction, Reports low back pain, Reports neck stiffness, Reports shooting leg pain Musculoskeletal: right: foot pain, foot stiffness, absent: ankle pain, ankle stiffness, ankle swelling, elbow pain, elbow stiffness, elbow swelling, foot swelling, hand pain, hand stiffness, hand swelling, hip pain, hip stiffness, hip swelling, knee pain, knee stiffness, knee swelling, shoulder pain, shoulder stiffness, shoulder swelling, wrist pain, wrist stiffness, wrist swelling Integumentary: Reports wounds (Right fifth toe skin laceration with bruising.), Denies pruritus, Denies rash Neurological: Reports change in mentation, Reports confusion, Reports memory loss, Reports weakness, Reports visual changes, Denies head injury Psychiatric: Reports anxiety, Reports depression, Reports memory loss, Denies sadness/tearfulness, Denies sleep disturbances, Denies suicidal ideation Endocrine: Denies fatigue, Denies weight change Physical examination: HEENT: Head is atraumatic, normocephalic, pupils were equal round reactive to light and accommodation, extraocular muscle movement were intact, sclera nonicteric, conjunctivae were., Mucous membranes of the mouth are somewhat dry. Neck: Supple, no JVD, decreased carotid upstroke bilaterally. Chest: Decreased breath sounds at the bases, few rhonchi and expiratory wheezes no chest wall tenderness no intercostal retractions. Heart: First heart sound is depressed, second heart sound is normal, irregularly irregular, there is systolic murmur 2/6 located in the left sternal border. Abdomen: Soft, nontender, nondistended, positive bowel sounds. Extremities: +1 edema no calf tenderness, dorsalis pedis +1 bilaterally. Neurologic exoneration: Patient is awake alert and oriented 2, cranial nerves 3-12 appear grossly intact, muscle power were 4 out of 5 in upper extremities and 3 out of 5 in bilateral lower extremities - Labs CBC & Chem 7: 04/02/20 07:10 04/02/20 07:10 Labs: Abnormal Lab Results - Last 24 Hours (Table) 04/01/20 04/01/20 04/01/20 Range/Units 08:18 12:11 16:53 WBC (3.8-10.6) k/uL RBC (4.30-5.90) m/uL Hgb (13.0-17.5) gm/dL Hct (39.0-53.0) % MCHC (31.0-37.0) g/dL RDW (11.5-15.5) % Neutrophils # (Manual) (1.3-7.7) k/uL Lymphocytes # (Manual) (1.0-4.8) k/uL Monocytes # (Manual) (0-1.0) k/uL Metamyelocytes # (Man) (0) k/uL Myelocytes # (Manual) (0) k/uL Chloride 116 H (98-107) mmol/L Carbon Dioxide 16 L (22-30) mmol/L BUN 81 H (9-20) mg/dL Creatinine 2.52 H (0.66-1.25) mg/dL Glucose 157 H (74-99) mg/dL POC Glucose (mg/dL) 138 H 117 H (75-99) mg/dL Total Protein (6.3-8.2) g/dL Albumin (3.5-5.0) g/dL 04/01/20 04/02/20 04/02/20 Range/Units 20:06 06:41 07:10 WBC (3.8-10.6) k/uL RBC (4.30-5.90) m/uL Hgb (13.0-17.5) gm/dL Hct (39.0-53.0) % MCHC (31.0-37.0) g/dL RDW (11.5-15.5) % Neutrophils # (Manual) (1.3-7.7) k/uL Lymphocytes # (Manual) (1.0-4.8) k/uL Monocytes # (Manual) (0-1.0) k/uL Metamyelocytes # (Man) (0) k/uL Myelocytes # (Manual) (0) k/uL Chloride 115 H (98-107) mmol/L Carbon Dioxide 17 L (22-30) mmol/L BUN 75 H (9-20) mg/dL Creatinine 2.27 H (0.66-1.25) mg/dL Glucose 123 H (74-99) mg/dL POC Glucose (mg/dL) 121 H 119 H (75-99) mg/dL Total Protein 5.4 L (6.3-8.2) g/dL Albumin 2.7 L (3.5-5.0) g/dL 04/02/20 Range/Units 07:10 WBC 27.0 H (3.8-10.6) k/uL RBC 3.89 L (4.30-5.90) m/uL Hgb 10.2 L (13.0-17.5) gm/dL Hct 33.2 L (39.0-53.0) % MCHC 30.6 L (31.0-37.0) g/dL RDW 22.5 H (11.5-15.5) % Neutrophils # (Manual) 23.20 H (1.3-7.7) k/uL Lymphocytes # (Manual) 0.54 L (1.0-4.8) k/uL Monocytes # (Manual) 1.08 H (0-1.0) k/uL Metamyelocytes # (Man) 1.08 H (0) k/uL Myelocytes # (Manual) 1.08 H (0) k/uL Chloride (98-107) mmol/L Carbon Dioxide (22-30) mmol/L BUN (9-20) mg/dL Creatinine (0.66-1.25) mg/dL Glucose (74-99) mg/dL POC Glucose (mg/dL) (75-99) mg/dL Total Protein (6.3-8.2) g/dL Albumin (3.5-5.0) g/dL Microbiology - Last 24 Hours (Table) 03/31/20 14:34 Blood Culture - Preliminary Blood No Growth after 24 hours 03/31/20 14:34 Blood Culture - Preliminary Blood No Growth after 24 hours Assessment and Plan Assessment: Assessment and plan: 1. Acute kidney injury and top of chronic kidney disease stage IIIB. Discontinue IV fluid at this time start the patient on Lasix 40 mg IV push every 24 hours, monitor input and output and daily weight, monitor for urinary retention, we will continue to follow up with the patient very closely.. 2. Acute hypoxic respiratory failure secondary to left lower lobe pneumonia and acute systolic heart failure. Continue Lasix 40 mg IV push every 24 hours, continue metoprolol 50 mg orally twice every day, continue Rocephin 1 g IV piggyback every 24 hours, Zithromax 250 mg orally once every day. 3. History of multilobar pulmonary emboli. We'll continue with Eliquis 2.5 mg orally twice every day for life. 4. Essential thrombocytosis. We will continue with anagrelide 1 mg orally twice every day. 5. Hypertension and hypertensive cardiovascular disease. Continue metoprolol 50 mg orally twice every day and hydralazine 25 mg orally 3 times every day. 6. History of gout. Continue allopurinol 300 mg orally once every day. 7. Acute and chronic kidney disease stage II. His creatinine is back to baseline. 8. Paroxysmal atrial fibrillation. Continue metoprolol 50 mg orally twice every day, continue Eliquis 2.5 mg orally twice every day 9. Peripheral neuropathy. Continue gabapentin 300 mg orally twice every day. 10. Vascular dementia. Continue Aricept 5 mg orally bedtime. 11. Mixed hyperlipidemia. Continue Lipitor 20 mg orally once every day. 12. Spondylosis of the cervical spine. Continue gabapentin 300 mg orally twice every day. 13. DVT prophylaxis. Continue patient on Eliquis 2.5 mg orally twice every day. 14. GI prophylaxis. Continue patient on Protonix 40 mg orally once every day.. 15. Physical therapy evaluation. Patient may require subacute rehabilitation. 16. Guarded prognosis .
[2020-04-02 11:55] LABS: Glucose,Whole Blood 124 mg/dL (75-99)
[2020-04-02] MEDS: AGRYLIN PO SCH ×2 (12:13→21:40)
--- NOTE | 2020-04-02 13:46 | P.PN ---
Subjective Progress Note Date: 04/02/20 Principal diagnosis: Acute hypoxic respiratory failure secondary to acute exacerbation of chronic systolic congestive heart failure and left lower lobe community acquired pneumonia. This is an 84-year-old male patient who has a history of hyperlipidemia, hypertension, gastroesophageal reflux disease, chronic renal disease, dementia, CVA amended diverticulitis, GI bleed, kidney donor of the right kidney is anticoagulated with Eliquis. He was brought into the emergency room yesterday after stubbing his right fifth toe and unable to stop the bleeding. He was also found to be hypoxic on room air and his chest x-ray revealed evidence of fluid volume overload/CHF. He was admitted for the same. He is seen today in consultation on the selective care unit. He is currently resting comfortably in bed. Awake and alert in no acute distress. Currently maintaining O2 saturati ons in the upper 90s on 3 L/m per nasal cannula. He is afebrile. He is tachycardic in the 120s, atrial fibrillation. White count 29.0. Hemoglobin 11.0. Sodium 142. Potassium 5.1. Creatinine 2.52. Pro-calcitonin 0.38. ProBNP 14,100. Troponin negative 1. Hightower virus not detected. He has been initiated on azithromycin and ceftriaxone. No diuretics. Patient was reevaluated today on 04/02/2020, remains on the medical floor, confused, patient is not in any form of respiratory distress, he has some vague lower abdominal pain, no nausea, no vomiting, no diarrhea, denies even being short of breath. His only complaint is some vague lower abdominal pain. Patient remains on diuretics, he is also on antibiotics and seems to be clinically improving. Continues to have leukocytosis with WBC count of 27.0, he was initially admitted with a WBC count of 29.0. His electrolytes are improvi ng. And his BUN and creatinine are improving in spite of diuresis. Patient was placed on Lasix at 40 mg IV push daily. Is also on Rocephin and Zithromax. His IV fluid is at KVO. Objective - Vital Signs Vital signs: Vital Signs Temp 97.9 F 04/02/20 12:00 Pulse 92 04/02/20 12:00 Resp 14 04/02/20 12:00 BP 105/61 04/02/20 12:00 Pulse Ox 94 L 04/02/20 12:00 Intake & Output 04/01/20 04/02/20 04/02/20 18:59 06:59 18:59 Intake Total 480 1080 Output Total 1125 200 Balance -645 880 Weight 90.5 kg Intake: Oral 480 1080 Output: Urine 1125 200 Other: Voiding Method Urinal Urinal Urinal Incontinent Incontinent Incontinent # Voids 3 # Bowel Movements 1 1 - Exam GENERAL EXAM: Alert, frail, cachectic 84-year-old gentleman, on room air with O2 saturation of 95% HEAD: Normocephalic. EENT: PERRLA, EOMI, nonicteric, slightly dry mucous membranes noted. CHEST: No chest wall deformity. LUNGS: Equal air entry with crackles in the bilateral posterior bases. CVS: S1 and S2 normal with no audible murmur, irregular rhythm. Tachycardic. ABDOMEN: No hepatosplenomegaly, normal bowel sounds, no guarding or rigidity. SPINE: No scoliosis or deformity SKIN: No rashes CENTRAL NERVOUS SYSTEM: Confused otherwise No focal deficits, tone is normal in all 4 extremities. EXTREMITIES: Bruising to the right fifth toe. There is no peripheral edema. No clubbing, no cyanosis. Peripheral pulses are intact. - Labs CBC & Chem 7: 04/02/20 07:10 04/02/20 07:10 Labs: Abnormal Lab Results - Last 24 Hours (Table) 04/01/20 04/01/20 04/02/20 Range/Units 16:53 20:06 06:41 WBC (3.8-10.6) k/uL RBC (4.30-5.90) m/uL Hgb (13.0-17.5) gm/dL Hct (39.0-53.0) % MCHC (31.0-37.0) g/dL RDW (11.5-15.5) % Neutrophils # (Manual) (1.3-7.7) k/uL Lymphocytes # (Manual) (1.0-4.8) k/uL Monocytes # (Manual) (0-1.0) k/uL Metamyelocytes # (Man) (0) k/uL Myelocytes # (Manual) (0) k/uL Chloride (98-107) mmol/L Carbon Dioxide (22-30) mmol/L BUN (9-20) mg/dL Creatinine (0.66-1.25) mg/dL Glucose (74-99) mg/dL POC Glucose (mg/dL) 117 H 121 H 119 H (75-99) mg/dL Total Protein (6.3-8.2) g/dL Albumin (3.5-5.0) g/dL 04/02/20 04/02/20 04/02/20 Range/Units 07:10 07:10 11:54 WBC 27.0 H (3.8-10.6) k/uL RBC 3.89 L (4.30-5.90) m/uL Hgb 10.2 L (13.0-17.5) gm/dL Hct 33.2 L (39.0-53.0) % MCHC 30.6 L (31.0-37.0) g/dL RDW 22.5 H (11.5-15.5) % Neutrophils # (Manual) 23.20 H (1.3-7.7) k/uL Lymphocytes # (Manual) 0.54 L (1.0-4.8) k/uL Monocytes # (Manual) 1.08 H (0-1.0) k/uL Metamyelocytes # (Man) 1.08 H (0) k/uL Myelocytes # (Manual) 1.08 H (0) k/uL Chloride 115 H (98-107) mmol/L Carbon Dioxide 17 L (22-30) mmol/L BUN 75 H (9-20) mg/dL Creatinine 2.27 H (0.66-1.25) mg/dL Glucose 123 H (74-99) mg/dL POC Glucose (mg/dL) 124 H (75-99) mg/dL Total Protein 5.4 L (6.3-8.2) g/dL Albumin 2.7 L (3.5-5.0) g/dL Microbiology - Last 24 Hours (Table) 03/31/20 14:34 Blood Culture - Preliminary Blood No Growth after 24 hours 03/31/20 14:34 Blood Culture - Preliminary Blood No Growth after 24 hours Assessment and Plan Assessment: Acute hypoxic respiratory failure secondary to acute on chronic systolic congestive heart failure and left lower lobe pneumonia./Community-acquired. Chronic atrial fibrillation. Leukocytosis secondary to underlying pneumonia. Acute on chronic kidney injury, improving based on the labs today. Injury to right fifth toe with uncontrolled bleeding, improving. History of dementia. History of CVA. Benign essential hypertension. Medical debility and deconditioning. History of GERD Right kidney donor. Recommendation: Continue antibiotics. Continue Lasix at 40 mg IV push daily. Continue to monitor daily renal profile. Continue anticoagulation therapy. Consider discharge planning in the next 24-48 hours, patient will definitely need some sort of placement. We'll continue to follow. Repeat chest x-ray in a.m. Time with Patient: Less than 30
--- NOTE | 2020-04-02 15:16 | PN ---
PROGRESS NOTE The patient is seen for followup for acute kidney injury. The patient's renal function is fairly stable with serum creatinine actually improving and creatinine is down from 3.0 on initial admission to 2.27. The patient is currently being diuresed. His Lasix is at 40 mg IV daily. PHYSICAL EXAMINATION: On examination this morning, blood pressure was 118/68, heart rate 68 per minute, he is afebrile. Examination of the heart S1, S2. Examination of lungs, decreased breath sounds at bases. Abdomen is soft, nontender. Examination lower extremities shows trace edema. [employer] exam grossly intact. LAB: Show sodium 142, potassium 4.6, chloride 115, CO2 17, BUN 75, creatinine 2.27, hemoglobin 10.2 g/dL. ASSESSMENT: 1. Acute kidney injury, currently improved, mostly associated with hypotension, status post IV fluids, now maintained on IV Lasix. 2. Chronic kidney disease stage 3B, with serum creatinine 1.5-1.8 with solitary left kidney and nephrosclerosis. 3. 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 4. History of paroxysmal atrial fibrillation. 5. Transient ischemic attack. 6. Congestive heart failure, acute on top of chronic, ejection fraction 40% to 45%. 7. Volume overload maintained on IV Lasix daily. PLAN: Continue current dose of Lasix, encourage oral intake and repeat labs in. MMODL / IJN: [id number] /
[2020-04-02 16:48] LABS: Glucose,Whole Blood 147 mg/dL (75-99)
[2020-04-03] MEDS: PANTOPRAZOLE 40 MG TABLET PO SCH (06:39)
[2020-04-03] MEDS: SODIUM CHLORIDE 0.9% 1,000 ML IV SCH ×2 (06:39→22:44)
[2020-04-03 07:05] LABS: Anisocytosis Moderate; HCT 33.7 % (39.0-53.0); HGB 10.6 gm/dL (13.0-17.5); Hypochromasia Moderate; MCHC 31.5 g/dL (31.0-37.0); MCV 85.7 fL (80.0-100.0); Mean Platelet Volume 11.4; Microcytosis Slight; Platelet Count 432 k/uL (150-450); Poikilocytosis Slight; RBC 3.93 m/uL (4.30-5.90); RDW 22.7 % (11.5-15.5); WBC 27.2 k/uL (3.8-10.6)
[2020-04-03 07:20] LABS: Calcium 8.6 mg/dL (8.4-10.2); Potassium 4.6 mmol/L (3.5-5.1)
--- NOTE | 2020-04-03 07:22 | XR ---
EXAMINATION TYPE: XR chest 1V portable DATE OF EXAM: 04/03/2020 HISTORY: Shortness of breath. COMPARISON: 04/01/2020 TECHNIQUE: Single view of the chest is submitted. FINDINGS: Demonstrated are scattered senescent parenchymal change. Right lower lobe infiltrates persist with interval improvement suggested. Continued cardiomegaly. Hilar and mediastinal structures are within normal limits. Degenerative changes are seen of the dorsal spine. IMPRESSION: 1. Right lower lobe infiltrates persist with interval improvement suggested.
[2020-04-03 08:02] LABS: Band Neutrophils % 7 %; Basophils # (M) 0.27 k/uL (0-0.2); Eosinophils # (M) 0.82 k/uL (0-0.7); Large Platelets Present; Lymphocytes # (M) 1.63 k/uL (1.0-4.8); Metamyelocytes # (M) 1.36 k/uL (0); Metamyelocytes % 5 %; Monocytes # (M) 1.09 k/uL (0-1.0); Myelocytes # (M) 0.82 k/uL (0); Myelocytes % 3 %; Neutrophils % (M) 74 %; Nucleated Red Blood Cells 0 /100 WBC (0-0); Ovalocytes Present; Total Cells Counted 200
[2020-04-03] MEDS: AZITHROMYCIN 500 MG TAB PO SCH (08:51)
[2020-04-03] MEDS: METOPROLOL TARTRATE 50 MG TAB PO SCH ×2 (08:51→20:31)
[2020-04-03] MEDS: SODIUM BICARBONATE TAB 650 MG TAB PO SCH ×3 (08:51→20:31)
[2020-04-03] MEDS: APIXABAN 2.5 MG TABLET PO SCH ×2 (08:52→20:31)
[2020-04-03] MEDS: LINAGLIPTIN 5 MG TABLET PO SCH (08:52)
[2020-04-03] MEDS: GABAPENTIN 300 MG CAP PO SCH ×2 (08:52→20:31)
[2020-04-03] MEDS: hydrALAZINE HCL 25 MG TAB PO SCH ×3 (08:52→20:31)
[2020-04-03] MEDS: allopurinoL 300 MG TAB PO SCH (08:52)
[2020-04-03] MEDS: ATORVASTATIN 20 MG TAB PO SCH (08:52)
[2020-04-03] MEDS: FUROSEMIDE 10 MG/ML 4 ML VIAL IV SCH (08:52)
[2020-04-03] MEDS: AGRYLIN PO SCH ×2 (08:53→22:44)
--- NOTE | 2020-04-03 10:48 | P.PN ---
Subjective Progress Note Date: 04/03/20 Acute hypoxic respiratory failure secondary to acute exacerbation of chronic sy stolic congestive heart failure and left lower lobe community acquired pneumonia. This is an 84-year-old male patient who has a history of hyperlipidemia, hypertension, gastroesophageal reflux disease, chronic renal disease, dementia, CVA amended diverticulitis, GI bleed, kidney donor of the right kidney is anticoagulated with Eliquis. He was brought into the emergency room yesterday after stubbing his right fifth toe and unable to stop the bleeding. He was also found to be hypoxic on room air and his chest x-ray revealed evidence of fluid volume overload/CHF. He was admitted for the same. He is seen today in consultation on the selective care unit. He is currently resting comfortably in bed. Awake and alert in no acute distress. Currently maintaining O2 saturations in the upper 90s on 3 L/m per nasal cannula. He is afebrile. He is tachycardic in the 120s, atrial fibrillation. White count 29.0. Hemoglobin 11.0. Sodium 142. Potassium 5.1. Creatinine 2.52. Pro-calcitonin 0.38. ProBNP 14,100. Troponin negative 1. Hightower virus not detected. He has been initiated on azithromycin and ceftriaxone. No diuretics. Patient was reevaluated today on 04/02/2020, remains on the medical floor, confused, patient is not in any form of respiratory distress, he has some vague lower abdominal pain, no nausea, no vomiting, no diarrhea, denies even being short of breath. His only complaint is some vague lower abdominal pain. Patient remains on diuretics, he is also on antibiotics and seems to be clinically improving. Continues to have leukocytosis with WBC count of 27.0, he was initially admitted with a WBC count of 29.0. His electrolytes are improving. And his BUN and creatinine are improving in spite of diuresis. Patient was placed on Lasix at 40 mg IV push daily. Is also on Rocephin and Zithromax. His IV fluid is at KVO. On today's evaluation of 04/03/2020 the patient is on room air oxygen. He is sitting up on a chair. He is still reporting some limited shortness of breath. The follow-up chest x-ray was done and showed right lower lobe pulmonary infil trates persist overdose with interval improvement. The patient remains on Zithromax and IV fluid in the rate of 25 mL an hour. He remains on metoprolol for rate control at a dose of 50 mg by mouth twice a day and he is also on long- term anticoagulation with Eliquis. On the blood work, the white cell count is elevated at 27, creatinine is at 2.17 with a BUN of 73 and a serum bicarbonate at 18. Objective - Vital Signs Vital signs: Vital Signs Temp 97.8 F 04/02/20 23:11 Pulse 103 H 04/03/20 08:00 Resp 16 04/03/20 08:00 BP 109/62 04/03/20 08:00 Pulse Ox 97 04/03/20 08:00 Intake & Output 04/02/20 04/03/20 04/03/20 18:59 06:59 18:59 Intake Total 2970 Output Total 500 250 Balance 2470 -250 Intake: Intake, IV Titration 450 Amount Sodium Chloride 0.9% 1, 400 000 ml @ 25 mls/hr IV . Q24H JS Rx#:[id number] cefTRIAXone 1 gm In 50 Sodium Chloride 0.9% 50 ml @ 100 mls/hr IVPB Q24HR JS Rx#:[id number] Oral 2520 Output: Urine 500 250 Other: Voiding Method Urinal Urinal Urinal Incontinent Incontinent Incontinent # Bowel Movements 1 - Exam GENERAL EXAM: Alert, frail, cachectic 84-year-old gentleman, on room air with O2 saturation of 95% HEAD: Normocephalic. EENT: PERRLA, EOMI, nonicteric, slightly dry mucous membranes noted. CHEST: No chest wall deformity. LUNGS: Equal air entry with crackles in the bilateral posterior bases. CVS: S1 and S2 normal with no audible murmur, irregular rhythm. Tachycardic. ABDOMEN: No hepatosplenomegaly, normal bowel sounds, no guarding or rigidity. SPINE: No scoliosis or deformity SKIN: No rashes CENTRAL NERVOUS SYSTEM: Confused otherwise No focal deficits, tone is normal in all 4 extremities. EXTREMITIES: Bruising to the right fifth toe. There is no peripheral edema. No clubbing, no cyanosis. Peripheral pulses are intact. - Labs CBC & Chem 7: 04/03/20 06:40 04/03/20 06:40 Labs: Abnormal Lab Results - Last 24 Hours (Table) 04/02/20 04/02/20 04/03/20 Range/Units 11:54 16:41 06:40 WBC 27.2 H (3.8-10.6) k/uL RBC 3.93 L (4.30-5.90) m/uL Hgb 10.6 L (13.0-17.5) gm/dL Hct 33.7 L (39.0-53.0) % RDW 22.7 H (11.5-15.5) % Neutrophils # (Manual) 22.00 H (1.3-7.7) k/uL Monocytes # (Manual) 1.09 H (0-1.0) k/uL Eosinophils # (Manual) 0.82 H (0-0.7) k/uL Basophils # (Manual) 0.27 H (0-0.2) k/uL Metamyelocytes # (Man) 1.36 H (0) k/uL Myelocytes # (Manual) 0.82 H (0) k/uL Chloride (98-107) mmol/L Carbon Dioxide (22-30) mmol/L BUN (9-20) mg/dL Creatinine (0.66-1.25) mg/dL Glucose (74-99) mg/dL POC Glucose (mg/dL) 124 H 147 H (75-99) mg/dL 04/03/20 Range/Units 06:40 WBC (3.8-10.6) k/uL RBC (4.30-5.90) m/uL Hgb (13.0-17.5) gm/dL Hct (39.0-53.0) % RDW (11.5-15.5) % Neutrophils # (Manual) (1.3-7.7) k/uL Monocytes # (Manual) (0-1.0) k/uL Eosinophils # (Manual) (0-0.7) k/uL Basophils # (Manual) (0-0.2) k/uL Metamyelocytes # (Man) (0) k/uL Myelocytes # (Manual) (0) k/uL Chloride 113 H (98-107) mmol/L Carbon Dioxide 18 L (22-30) mmol/L BUN 73 H (9-20) mg/dL Creatinine 2.17 H (0.66-1.25) mg/dL Glucose 133 H (74-99) mg/dL POC Glucose (mg/dL) (75-99) mg/dL Microbiology - Last 24 Hours (Table) 03/31/20 14:34 Blood Culture - Preliminary Blood No Growth after 48 hours 03/31/20 14:34 Blood Culture - Preliminary Blood No Growth after 48 hours Assessment and Plan Plan: 1 Acute hypoxic respiratory failure secondary to acute on chronic systolic congestive heart failure and left lower lobe pneumonia./Community-acquired. The follow-up chest x-ray from today showing improvement in the right lower lobe pulmonary infiltrate. Currently on room air oxygen. 2 Chronic atrial fibrillation. 3 Leukocytosis secondary to underlying pneumonia. The white cell count remains elevated and unchanged compared to yesterday 4 Acute on chronic kidney injury, improving based on the labs today. 5 Injury to right fifth toe with uncontrolled bleeding, improving. 6 History of dementia. 7 History of CVA. 8 Benign essential hypertension. 9 Medical debility and deconditioning. 10 History of GERD 11 Right kidney donor. Recommendation: Continue antibiotics, and the right lower lobe pneumonia is improving. Continue Lasix at 40 mg IV push daily. Continue to monitor daily renal profile. Continue anticoagulation therapy. He remains quite debilitated. He is still weak. Renal function stable. White cell count is elevated. We'll continue to monitor.
--- NOTE | 2020-04-03 11:13 | P.PN ---
Subjective Progress Note Date: 04/03/20 This is an 84-year-old male one of my patient with a previous medical history significant for hypertension and hypertensive cardio vascular disease, hyperlipidemia, chronic kidney disease stage III, history of essential thrombocytosis, history of severe spondylosis of the cervical spine, history of proximal atrial fib relation, was recently hospitalized in August 2019 where he was found to have multilobar pulmonary emboli and he was started on Eliquis 5 mg orally twice every day, and it was doubtful for whether or not to keep the patient on anticoagulation because of recurrent falls and increased risk of bleeding, eventually the decision was made to keep the patient on outpatient this point in time, he was seen in the office 3 weeks when he was found to have a significant macrocytosis with MCV of 120 with significant suppression of the bone marrow due to the use of Hydrea with leukopenia as well as from cytopenia and he was not sure 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 Moreno , his oncologist as an outpatient which she did and he was kept off Hydrea and he was supposed to go back in 2 weeks for repeat CBC and possible bone marrow biopsy for possible bone marrow disease patient was recently hospitalized at [facility] with atrial fibrillation and rapid ventricular response and he went home, patient was seen in the emergency department yesterday after a fall at home when he stubbed his right fifth toe and fell on the right knee as well, he was found to be hypoxemic with oxygen saturation in the low 80s, his chest x-ray showed pulmonary vascular congestion, his BUN was elevated as well as his creatinine, there was questionable pneumonia he was started on IV antibiotic in the form of Rocephin and Zithromax and he was started on oxygen and was placed on Lasix 40 mg IV push every 24 hours, after he was placed on normal saline at 50 mL an hour for home patient was seen in consultation by pulmonary medicine as well as by nephrology for further evaluation and treatment. 04/02: Patient sitting up in bed he appears to be very confused today, he thought that his [place] today, he was reoriented back that he is in [place], he is eating his breakfast, he denies any chest pain, his lesser above, he has no abdominal pain, nausea vomiting or diarrhea, he appears to be tolerating his treatment very well, he'll be seen in consultation by physical therapy as the patient is extremely weak and he may require subacute rehab physician at this point in time. 04/03: Patient sitting up in a recliner in no apparent distress, he denies any chest pain, or any shortness breath, the lost his IV today, we will continue with the Zithromax 500 mg orally once every day, he did receive last Rocephin yesterday, we will maintain the patient on Lasix 40 mg IV push every 24 hours, nephrology is following, patient will be seen and evaluated by physical therapy for possible subacute rehab rotation we will try to talk to his about the plan of care. Objective - Vital Signs Vital signs: Vital Signs Temp 97.8 F 04/02/20 23:11 Pulse 103 H 04/03/20 08:00 Resp 16 04/03/20 08:00 BP 109/62 04/03/20 08:00 Pulse Ox 97 04/03/20 08:00 Intake & Output 04/02/20 04/03/20 04/03/20 18:59 06:59 18:59 Intake Total 2970 Output Total 500 250 Balance 2470 -250 Intake: Intake, IV Titration 450 Amount Sodium Chloride 0.9% 1, 400 000 ml @ 25 mls/hr IV . Q24H JS Rx#:[id number] cefTRIAXone 1 gm In 50 Sodium Chloride 0.9% 50 ml @ 100 mls/hr IVPB Q24HR JS Rx#:[id number] Oral 2520 Output: Urine 500 250 Other: Voiding Method Urinal Urinal Urinal Incontinent Incontinent Incontinent # Bowel Movements 1 - Exam Review of Systems Constitutional: Reports anorexia, Reports fatigue, Reports malaise, Reports weakness, Reports weight loss Eyes: bilateral blurred vision, bilateral decreased vision, denies bulging eye Ears, nose, mouth and throat: Denies dysphagia, Denies neck lump, Denies sore throat Cardiovascular: Reports decreased exercise tolerance, Reports dyspnea on exertion, Reports high blood pressure, Reports irregular heart beat, Reports leg edema, Reports lightheadedness, Reports rapid heart beat, Reports shortness of breath, Denies chest pain, Denies syncope Respiratory: Reports congestion, Reports cough, Reports cough with sputum, Reports sleep apnea, Reports wheezing, Denies home oxygen, Denies snoring Gastrointestinal: Reports diarrhea, Reports loss of appetite, Reports nausea, Denies abdominal pain, Denies bloating, Denies BRBPR, Denies heartburn, Denies melena, Denies vomiting Genitourinary: Reports incontinence, Reports nocturia, Denies dysuria Musculoskeletal: Reports atrophy, Reports frequent falls, Reports gait dysfunction, Reports low back pain, Reports neck stiffness, Reports shooting leg pain Musculoskeletal: right: foot pain, foot stiffness, absent: ankle pain, ankle stiffness, ankle swelling, elbow pain, elbow stiffness, elbow swelling, foot swelling, hand pain, hand stiffness, hand swelling, hip pain, hip stiffness, hip swelling, knee pain, knee stiffness, knee swelling, shoulder pain, shoulder stiffness, shoulder swelling, wrist pain, wrist stiffness, wrist swelling Integumentary: Reports wounds (Right fifth toe skin laceration with bruising.), Denies pruritus, Denies rash Neurological: Reports change in mentation, Reports confusion, Reports memory loss, Reports weakness, Reports visual changes, Denies head injury Psychiatric: Reports anxiety, Reports depression, Reports memory loss, Denies sadness/tearfulness, Denies sleep disturbances, Denies suicidal ideation Endocrine: Denies fatigue, Denies weight change Physical examination: HEENT: Head is atraumatic, normocephalic, pupils were equal round reactive to light and accommodation, extraocular muscle movement were intact, sclera nonicteric, conjunctivae were., Mucous membranes of the mouth are somewhat dry. Neck: Supple, no JVD, decreased carotid upstroke bilaterally. Chest: Decreased breath sounds at the bases, few rhonchi and expiratory wheezes no chest wall tenderness no intercostal retractions. Heart: First heart sound is depressed, second heart sound is normal, irregularly irregular, there is systolic murmur 2/6 located in the left sternal border. Abdomen: Soft, nontender, nondistended, positive bowel sounds. Extremities: +1 edema no calf tenderness, dorsalis pedis +1 bilaterally. Neurologic exoneration: Patient is awake alert and oriented 2, cranial nerves 3-12 appear grossly intact, muscle power were 4 out of 5 in upper extremities and 3 out of 5 in bilateral lower extremities - Labs CBC & Chem 7: 04/03/20 06:40 04/03/20 06:40 Labs: Abnormal Lab Results - Last 24 Hours (Table) 04/02/20 04/02/2004/03/21 Range/Units 11:54 16:41 06:40 WBC 27.2 H (3.8-10.6) k/uL RBC 3.93 L (4.30-5.90) m/uL Hgb 10.6 L (13.0-17.5) gm/dL Hct 33.7 L (39.0-53.0) % RDW 22.7 H (11.5-15.5) % Neutrophils # (Manual) 22.00 H (1.3-7.7) k/uL Monocytes # (Manual) 1.09 H (0-1.0) k/uL Eosinophils # (Manual) 0.82 H (0-0.7) k/uL Basophils # (Manual) 0.27 H (0-0.2) k/uL Metamyelocytes # (Man) 1.36 H (0) k/uL Myelocytes # (Manual) 0.82 H (0) k/uL Chloride (98-107) mmol/L Carbon Dioxide (22-30) mmol/L BUN (9-20) mg/dL Creatinine (0.66-1.25) mg/dL Glucose (74-99) mg/dL POC Glucose (mg/dL) 124 H 147 H (75-99) mg/dL 04/03/20 Range/Units 06:40 WBC (3.8-10.6) k/uL RBC (4.30-5.90) m/uL Hgb (13.0-17.5) gm/dL Hct (39.0-53.0) % RDW (11.5-15.5) % Neutrophils # (Manual) (1.3-7.7) k/uL Monocytes # (Manual) (0-1.0) k/uL Eosinophils # (Manual) (0-0.7) k/uL Basophils # (Manual) (0-0.2) k/uL Metamyelocytes # (Man) (0) k/uL Myelocytes # (Manual) (0) k/uL Chloride 113 H (98-107) mmol/L Carbon Dioxide 18 L (22-30) mmol/L BUN 73 H (9-20) mg/dL Creatinine 2.17 H (0.66-1.25) mg/dL Glucose 133 H (74-99) mg/dL POC Glucose (mg/dL) (75-99) mg/dL Microbiology - Last 24 Hours (Table) 03/31/20 14:34 Blood Culture - Preliminary Blood No Growth after 48 hours 03/31/20 14:34 Blood Culture - Preliminary Blood No Growth after 48 hours Assessment and Plan Assessment: Assessment and plan: 1. Acute kidney injury and top of chronic kidney disease stage IIIB. Discontinue IV fluid at this time start the patient on Lasix 40 mg IV push every 24 hours, monitor input and output and daily weight, monitor for urinary retention, we will continue to follow up with the patient very closely.. 2. Acute hypoxic respiratory failure secondary to left lower lobe pneumonia and acute systolic heart failure. Continue Lasix 40 mg IV push every 24 hours, continue metoprolol 50 mg orally twice every day, continue Zithromax 250 mg orally once every day. 3. History of multilobar pulmonary emboli. We'll continue with Eliquis 2.5 mg orally twice every day for life. 4. Essential thrombocytosis. We will continue with anagrelide 1 mg orally twice every day. 5. Hypertension and hypertensive cardiovascular disease. Continue metoprolol 50 mg orally twice every day and hydralazine 25 mg orally 3 times every day. 6. History of gout. Continue allopurinol 300 mg orally once every day. 7. Acute and chronic kidney disease stage II. His creatinine is back to baseline. 8. Paroxysmal atrial fibrillation. Continue metoprolol 50 mg orally twice every day, continue Eliquis 2.5 mg orally twice every day 9. Peripheral neuropathy. Continue gabapentin 300 mg orally twice every day. 10. Vascular dementia. Continue Aricept 5 mg orally bedtime. 11. Mixed hyperlipidemia. Continue Lipitor 20 mg orally once every day. 12. Spondylosis of the cervical spine. Continue gabapentin 300 mg orally twice every day. 13. DVT prophylaxis. Continue patient on Eliquis 2.5 mg orally twice every day. 14. GI prophylaxis. Continue patient on Protonix 40 mg orally once every day.. 15. Physical therapy evaluation. Patient may require subacute rehabilitation. 16. Guarded prognosis .
[2020-04-03 11:54] LABS: Glucose,Whole Blood 146 mg/dL (75-99)
--- NOTE | 2020-04-03 12:57 | PN ---
PROGRESS NOTE Patient is seen for followup for acute kidney injury. Renal function has been improving. Creatinine is down to 2.1 from 3.0 on initial admission. The patient does have underlying CKD with baseline creatinine about 1.5-1.8 mg/dL. He is currently maintained on IV Lasix. No complaints of chest pains or shortness of breath. PHYSICAL EXAMINATION: On examination today, blood pressure was 101/56, heart rate 75 per minute, he is afebrile. Examination of the heart S1, S2. Examination of the lungs, bilateral breath sounds are heard. Abdomen is soft, nontender. Examination of lower extremities no significant edema. 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 He is confused. He is not in any acute distress. Moving all 4 extremities. LAB: Show sodium 140, potassium 4.6, chloride 113, CO2 is 18, BUN 73, creatinine 2.17, hemoglobin 10.6 g/dL. ASSESSMENT: 1. Acute kidney injury, currently improving, mostly acute tubular necrosis associated with hypotension, status post IV fluids. Currently maintained on IV Lasix for volume overload. Clinically improved. 2. Chronic kidney disease stage IIIB, with creatinine baseline 1.5-1.8 with solitary kidney and nephrosclerosis. 3. 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 4. History of paroxysmal atrial fibrillation. 5. Congestive heart failure, acute on top of chronic, mostly systolic. 6. Cardiomyopathy, ejection fraction 40% to 45%. PLAN: Continue with current dose of Lasix. May continue with the sodium bicarb. Repeat labs in a.m. MMODL / IJN: [id number] /
[2020-04-03 16:56] LABS: Glucose,Whole Blood 114 mg/dL (75-99)
[2020-04-03 20:28] LABS: Glucose,Whole Blood 128 mg/dL (75-99)
[2020-04-04 06:10] LABS: Glucose,Whole Blood 132 mg/dL (75-99)
[2020-04-04] MEDS: PANTOPRAZOLE 40 MG TABLET PO SCH (06:52)
[2020-04-04 07:57] LABS: Anisocytosis Moderate; HGB 10.5 gm/dL (13.0-17.5); Hypochromasia Marked; MCH 26.5 pg (25.0-35.0); MCHC 30.9 g/dL (31.0-37.0); MCV 85.9 fL (80.0-100.0); Mean Platelet Volume 11.2; Microcytosis Slight; Platelet Count 542 k/uL (150-450); Poikilocytosis Slight; RBC 3.96 m/uL (4.30-5.90); RDW 22.5 % (11.5-15.5); WBC 28.1 k/uL (3.8-10.6)
[2020-04-04 08:03] LABS: Albumin 2.8 g/dL (3.5-5.0); Calcium 8.8 mg/dL (8.4-10.2); Potassium 4.3 mmol/L (3.5-5.1); Total Bilirubin 0.8 mg/dL (0.2-1.3); Total Protein 5.5 g/dL (6.3-8.2)
[2020-04-04] MEDS: APIXABAN 2.5 MG TABLET PO SCH ×2 (08:47→17:34)
[2020-04-04] MEDS: AZITHROMYCIN 500 MG TAB PO SCH (08:47)
[2020-04-04] MEDS: SODIUM BICARBONATE TAB 650 MG TAB PO SCH ×3 (08:47→20:55)
[2020-04-04] MEDS: ATORVASTATIN 20 MG TAB PO SCH (08:48)
[2020-04-04] MEDS: AGRYLIN PO SCH ×2 (08:48→20:48)
[2020-04-04] MEDS: hydrALAZINE HCL 25 MG TAB PO SCH ×3 (08:48→20:54)
[2020-04-04] MEDS: LINAGLIPTIN 5 MG TABLET PO SCH (08:48)
[2020-04-04] MEDS: allopurinoL 300 MG TAB PO SCH (08:48)
[2020-04-04] MEDS: FUROSEMIDE 10 MG/ML 4 ML VIAL IV SCH (08:48)
[2020-04-04] MEDS: METOPROLOL TARTRATE 50 MG TAB PO SCH ×2 (08:48→20:54)
[2020-04-04] MEDS: GABAPENTIN 300 MG CAP PO SCH ×2 (08:48→20:54)
[2020-04-04 09:03] LABS: Band Neutrophils % 5 %; Eosinophils # (M) 1.41 k/uL (0-0.7); Lymphocytes # (M) 0.84 k/uL (1.0-4.8); Metamyelocytes # (M) 0.84 k/uL (0); Metamyelocytes % 3 %; Monocytes # (M) 1.12 k/uL (0-1.0); Myelocytes # (M) 1.41 k/uL (0); Myelocytes % 5 %; Neutrophils % (M) 76 %; Nucleated Red Blood Cells 0 /100 WBC (0-0); Ovalocytes Present; Promyelocytes # (M) 0.28 k/uL (0); Promyelocytes % 1 %; Total Cells Counted 200
[2020-04-04 09:04] LABS: Large Platelets Present
[2020-04-04 12:09] LABS: Glucose,Whole Blood 117 mg/dL (75-99)
--- NOTE | 2020-04-04 14:40 | PN ---
PROGRESS NOTE Patient is seen for followup for acute kidney injury and mild volume overload. His renal function continues to improve with creatinine down to 1.79 from 3 on initial admission. Currently patient is maintained on IV Lasix once a day. His volume status has improved significantly. PHYSICAL EXAMINATION: On examination today, the patient is awake, comfortable, not in any acute distress. Blood pressure 98/51, heart rate 90 per minute. He is afebrile. Examination of the heart S1, S2. Examination of the lungs, bilateral breath sounds are heard. Abdomen is soft, nontender. Examination of lower extremities shows no evidence of edema. EGG PROCESSOR exam grossly intact. LAB: Show sodium 140, potassium 4.3, chloride 113, CO2 is 19, BUN 63, creatinine 1.79, hemoglobin 10.5 g/dL. ASSESSMENT: 1. Acute kidney injury, acute tubular necrosis currently improving, mostly associated with hypotension, maintained on IV Lasix for volume overload. Can switch to p.o. 2. Volume overload now improved. Can switch to p.o. Lasix. 3. Chronic kidney disease, stage IIIB, with baseline creatinine 1.5-1.8 with solitary kidney and nephrosclerosis. 4. 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 5. Congestive heart failure, mostly systolic, acute on top of chronic. 6. Cardiomyopathy, ejection fraction 40% to 45%. PLAN: Can switch Lasix to p.o. and repeat labs in a.m. Continue with oral sodium bicarb. MMODL / IJN: [id number] /
--- NOTE | 2020-04-04 15:58 | P.PN ---
Subjective Progress Note Date: 04/04/20 Principal diagnosis: Acute hypoxic respiratory failure related to acute exacerbation of CHF and left lower lobe community acquired pneumonia This is an 84-year-old male patient who has a history of hyperlipidemia, hypertension, gastroesophageal reflux disease, chronic renal disease, dementia, CVA amended diverticulitis, GI bleed, kidney donor of the right kidney is anticoagulated with Eliquis. He was brought into the emergency room yesterday after stubbing his right fifth toe and unable to stop the bleeding. He was also found to be hypoxic on room air and his chest x-ray revealed evidence of fluid volume overload/CHF. He was admitted for the same. He is seen today in consultation on the selective care unit. He is currently resting comfortably in bed. Awake and alert in no acute distress. Currently maintaining O2 saturations in the upper 90s on 3 L/m per nasal cannula. He is afebrile. He is tachycardic in the 120s, atrial fibrillation. White count 29.0. Hemoglobin 11.0. Sodium 142. Potassium 5.1. Creatinine 2.52. Pro-calcitonin 0.38. ProBNP 14,100. Troponin negative 1. Hightower virus not detected. He has been initiated on azithromycin and ceftriaxone. No diuretics. Patient was reevaluated today on 04/02/2020, remains on the medical floor, co nfused, patient is not in any form of respiratory distress, he has some vague lower abdominal pain, no nausea, no vomiting, no diarrhea, denies even being short of breath. His only complaint is some vague lower abdominal pain. Patient remains on diuretics, he is also on antibiotics and seems to be clinically improving. Continues to have leukocytosis with WBC count of 27.0, he was initially admitted with a WBC count of 29.0. His electrolytes are improving. And his BUN and creatinine are improving in spite of diuresis. Patient was placed on Lasix at 40 mg IV push daily. Is also on Rocephin and Zithromax. His IV fluid is at KVO. On today's evaluation of 04/03/2020 the patient is on room air oxygen. He is sitting up on a chair. He is still reporting some limited shortness of breath. The follow-up chest x-ray was done and showed right lower lobe pulmonary infiltrates persist overdose with interval improvement. The patient remains on Zithromax and IV fluid in the rate of 25 mL an hour. He remains on metoprolol for rate control at a dose of 50 mg by mouth twice a day and he is also on long- term anticoagulation with Eliquis. On the blood work, the white cell count is elevated at 27, creatinine is at 2.17 with a BUN of 73 and a serum bicarbonate at 18. On 04/04/2020 patient seen in follow-up on selective care unit. He is resting comfortably, he is currently on 2 L of oxygen, there is to be in no acute distress, no cough, no cul-de-sac chest pain, no hemoptysis, cannot tell mild lower extremity edema lung sounds are positive for a few scattered rhonchi, no wheezing. His last chest x-ray from yesterday showed a right lower lobe infiltrate persistence with mild interval improvement. Patient continues on diuretics, he has been transitioned to oral Lasix 40 mg twice a day, and he remains on antibiotics in the form of azithromycin. Cultures show no growth. He has had no fever or chills, Objective - Vital Signs Vital signs: Vital Signs Temp 98.1 F 04/04/20 11:14 Pulse 90 04/04/20 13:18 Resp 18 04/04/20 13:18 BP 98/51 04/04/20 11:14 Pulse Ox 95 04/04/20 11:22 Intake & Output 04/03/20 04/04/20 04/04/20 18:59 06:59 18:59 Intake Total 240 Output Total 150 Balance 240 -150 Weight 90.5 kg Intake: Oral 240 Output: Urine 150 Other: Voiding Method Toilet Toilet Toilet # Voids 1 1 0 # Bowel Movements 0 - Exam GENERAL EXAM: Alert, active, 84-year-old white male on 2 L of oxygen, resting comfortably in the recliner comfortable in no apparent distress. HEAD: Normocephalic/atraumatic. EYES: Normal reaction of pupils, equal size. Conjunctiva pink, sclera white. NOSE: Clear with pink turbinates. THROAT: No erythema or exudates. NECK: No masses, no JVD, no thyroid enlargement, no adenopathy. CHEST: No chest wall deformity. Symmetrical expansion. LUNGS: Equal air entry with scattered rhonchi CVS: Regular rate and rhythm, normal S1 and S2, no gallops, no murmurs, no rubs ABDOMEN: Soft, nontender. No hepatosplenomegaly, normal bowel sounds, no guarding or rigidity. EXTREMITIES: No clubbing, no edema, no cyanosis, 2+ pulses and upper and lower extremities. MUSCULOSKELETAL: Muscle strength and tone normal. SPINE: No scoliosis or deformity SKIN: No rashes CENTRAL NERVOUS SYSTEM: Alert and oriented -3. No focal deficits, tone is normal in all 4 extremities. PSYCHIATRIC: Alert and oriented -3. Appropriate affect. Intact judgment and insight. - Labs CBC & Chem 7: 04/04/20 07:11 04/04/20 07:11 Labs: Abnormal Lab Results - Last 24 Hours (Table) 04/03/20 04/03/20 04/04/20 Range/Units 16:55 20:26 06:09 WBC (3.8-10.6) k/uL RBC (4.30-5.90) m/uL Hgb (13.0-17.5) gm/dL Hct (39.0-53.0) % MCHC (31.0-37.0) g/dL RDW (11.5-15.5) % Plt Count (150-450) k/uL Neutrophils # (Manual) (1.3-7.7) k/uL Lymphocytes # (Manual) (1.0-4.8) k/uL Monocytes # (Manual) (0-1.0) k/uL Eosinophils # (Manual) (0-0.7) k/uL Metamyelocytes # (Man) (0) k/uL Myelocytes # (Manual) (0) k/uL Promyelocytes # (Man) (0) k/uL Chloride (98-107) mmol/L Carbon Dioxide (22-30) mmol/L BUN (9-20) mg/dL Creatinine (0.66-1.25) mg/dL Glucose (74-99) mg/dL POC Glucose (mg/dL) 114 H 128 H 132 H (75-99) mg/dL Total Protein (6.3-8.2) g/dL Albumin (3.5-5.0) g/dL 04/04/20 04/04/20 04/04/20 Range/Units 07:11 07:11 12:08 WBC 28.1 H (3.8-10.6) k/uL RBC 3.96 L (4.30-5.90) m/uL Hgb 10.5 L (13.0-17.5) gm/dL Hct 34.0 L (39.0-53.0) % MCHC 30.9 L (31.0-37.0) g/dL RDW 22.5 H (11.5-15.5) % Plt Count 542 H (150-450) k/uL Neutrophils # (Manual) 22.70 H (1.3-7.7) k/uL Lymphocytes # (Manual) 0.84 L (1.0-4.8) k/uL Monocytes # (Manual) 1.12 H (0-1.0) k/uL Eosinophils # (Manual) 1.41 H (0-0.7) k/uL Metamyelocytes # (Man) 0.84 H (0) k/uL Myelocytes # (Manual) 1.41 H (0) k/uL Promyelocytes # (Man) 0.28 H (0) k/uL Chloride 113 H (98-107) mmol/L Carbon Dioxide 19 L (22-30) mmol/L BUN 63 H (9-20) mg/dL Creatinine 1.79 H (0.66-1.25) mg/dL Glucose 120 H (74-99) mg/dL POC Glucose (mg/dL) 117 H (75-99) mg/dL Total Protein 5.5 L (6.3-8.2) g/dL Albumin 2.8 L (3.5-5.0) g/dL Microbiology - Last 24 Hours (Table) 03/31/20 14:34 Blood Culture - Preliminary Blood No Growth after 72 hours 03/31/20 14:34 Blood Culture - Preliminary Blood No Growth after 72 hours Assessment and Plan Plan: Assessment: #1. Acute hypoxic respiratory failure secondary to acute on chronic systolic CHF and left lower lobe pneumonia, community acquired #2. Chronic A. fib on Eliquis #3. Leukocytosis secondary to pneumonia #4. Acute on chronic kidney injury, improving #5. Injury to the right fifth toe with uncontrolled bleeding, improved #6. History of dementia #7. History of CVA #8. Benign essential hypertension #9. Medical debility and deconditioning #10. History of GERD #11. Right kidney donor Plan: Continue oral diuretics, and antibiotics, wean FiO2, increase activity as tolerated, follow-up labs tomorrow, white count remains elevated, but clinically patient is improving, no worsening dyspnea, chest x-ray shows improvement in the appearance of pneumonia. We will continue to follow I performed a history & physical examination of the patient and discussed their management with my nurse practitioner, Cyndi Barron. I reviewed the nurse practitioner's note and agree with the documented findings and plan of care. L david sounds are positive for diminished breath sounds. The findings and the impression was discussed with the patient. I attest to the documentation by the nurse practitioner. Time with Patient: Less than 30
[2020-04-04 17:01] LABS: Glucose,Whole Blood 125 mg/dL (75-99)
[2020-04-04] MEDS: SODIUM CHLORIDE 0.9% 1,000 ML IV SCH (17:26)
[2020-04-04] MEDS: FUROSEMIDE 40 MG TAB PO SCH (17:28)
--- NOTE | 2020-04-04 19:30 | P.PN ---
Subjective Progress Note Date: 04/04/20 This is an 84-year-old male one of my patient with a previous medical history significant for hypertension and hypertensive cardio vascular disease, hyperlipidemia, chronic kidney disease stage III, history of essential thrombocytosis, history of severe spondylosis of the cervical spine, history of proximal atrial fib relation, was recently hospitalized in August 2019 where he was found to have multilobar pulmonary emboli and he was started on Eliquis 5 mg orally twice every day, and it was doubtful for whether or not to keep the patient on anticoagulation because of recurrent falls and increased risk of bleeding, eventually the decision was made to keep the patient on outpatient this point in time, he was seen in the office 3 weeks when he was found to have a significant macrocytosis with MCV of 120 with significant suppression of the bone marrow due to the use of Hydrea with leukopenia as well as from cytopenia and he was not sure 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 Moreno , his oncologist as an outpatient which she did and he was kept off Hydrea and he was supposed to go back in 2 weeks for repeat CBC and possible bone marrow biopsy for possible bone marrow disease patient was recently hospitalized at [facility] with atrial fibrillation and rapid ventricular response and he went home, patient was seen in the emergency department yesterday after a fall at home when he stubbed his right fifth toe and fell on the right knee as well, he was found to be hypoxemic with oxygen saturation in the low 80s, his chest x-ray showed pulmonary vascular congestion, his BUN was elevated as well as his creatinine, there was questionable pneumonia he was started on IV antibiotic in the form of Rocephin and Zithromax and he was started on oxygen and was placed on Lasix 40 mg IV push every 24 hours, after he was placed on normal saline at 50 mL an hour for home patient was seen in consultation by pulmonary medicine as well as by nephrology for further evaluation and treatment. 04/02: Patient sitting up in bed he appears to be very confused today, he thought that his [place] today, he was reoriented back that he is in [place], he is eating his breakfast, he denies any chest pain, his lesser above, he has no abdominal pain, nausea vomiting or diarrhea, he appears to be tolerating his treatment very well, he'll be seen in consultation by physical therapy as the patient is extremely weak and he may require subacute rehab physician at this point in time. 04/03: Patient sitting up in a recliner in no apparent distress, he denies any chest pain, or any shortness breath, the lost his IV today, we will continue with the Zithromax 500 mg orally once every day, he did receive last Rocephin yesterday, we will maintain the patient on Lasix 40 mg IV push every 24 hours, nephrology is following, patient will be seen and evaluated by physical therapy for possible subacute rehab rotation we will try to talk to his about the plan of care. 04/04: Patient sitting up in his recliner he is less confused today he continues to be a bit short of breath he is not coughing up any phlegm, he denies any chest pain, he denies any abdominal pain, nausea or vomiting, he is not eating as much, he had lost his IV we'll switch him to oral antibiotic with Zithromax 250 mg orally once every day, pulmonary is following, patient likely will be discharged home tomorrow morning. Objective - Vital Signs Vital signs: Vital Signs Temp 98.1 F 04/04/20 11:14 Pulse 90 04/04/20 11:14 Resp 18 04/04/20 11:14 BP 98/51 04/04/20 11:14 Pulse Ox 97 04/04/20 11:14 Intake & Output 04/03/20 04/04/20 04/04/20 18:59 06:59 18:59 Intake Total 240 Output Total 150 Balance 240 -150 Weight 90.5 kg Intake: Oral 240 Output: Urine 150 Other: Voiding Method Toilet Toilet Toilet # Voids 1 1 - Exam Review of Systems Constitutional: Reports anorexia, Reports fatigue, Reports malaise, Reports weakness, Reports weight loss Eyes: bilateral blurred vision, bilateral decreased vision, denies bulging eye Ears, nose, mouth and throat: Denies dysphagia, Denies neck lump, Denies sore throat Cardiovascular: Reports decreased exercise tolerance, Reports dyspnea on exertion, Reports high blood pressure, Reports irregular heart beat, Reports leg edema, Reports lightheadedness, Reports rapid heart beat, Reports shortness of breath, Denies chest pain, Denies syncope Respiratory: Reports congestion, Reports cough, Reports cough with sputum, Reports sleep apnea, Reports wheezing, Denies home oxygen, Denies snoring Gastrointestinal: Reports diarrhea, Reports loss of appetite, Reports nausea, Denies abdominal pain, Denies bloating, Denies BRBPR, Denies heartburn, Denies melena, Denies vomiting Genitourinary: Reports incontinence, Reports nocturia, Denies dysuria Musculoskeletal: Reports atrophy, Reports frequent falls, Reports gait dysfunction, Reports low back pain, Reports neck stiffness, Reports shooting leg pain Musculoskeletal: right: foot pain, foot stiffness, absent: ankle pain, ankle stiffness, ankle swelling, elbow pain, elbow stiffness, elbow swelling, foot swelling, hand pain, hand stiffness, hand swelling, hip pain, hip stiffness, hip swelling, knee pain, knee stiffness, knee swelling, shoulder pain, shoulder stiffness, shoulder swelling, wrist pain, wrist stiffness, wrist swelling Integumentary: Reports wounds (Right fifth toe skin laceration with bruising.), Denies pruritus, Denies rash Neurological: Reports change in mentation, Reports confusion, Reports memory loss, Reports weakness, Reports visual changes, Denies head injury Psychiatric: Reports anxiety, Reports depression, Reports memory loss, Denies sadness/tearfulness, Denies sleep disturbances, Denies suicidal ideation Endocrine: Denies fatigue, Denies weight change Physical examination: HEENT: Head is atraumatic, normocephalic, pupils were equal round reactive to light and accommodation, extraocular muscle movement were intact, sclera nonicteric, conjunctivae were., Mucous membranes of the mouth are somewhat dry. Neck: Supple, no JVD, decreased carotid upstroke bilaterally. Chest: Decreased breath sounds at the bases, few rhonchi and expiratory wheezes no chest wall tenderness no intercostal retractions. Heart: First heart sound is depressed, second heart sound is normal, irregularly irregular, there is systolic murmur 2/6 located in the left sternal border. Abdomen: Soft, nontender, nondistended, positive bowel sounds. Extremities: +1 edema no calf tenderness, dorsalis pedis +1 bilaterally. Neurologic exoneration: Patient is awake alert and oriented 2, cranial nerves 3-12 appear grossly intact, muscle power were 4 out of 5 in upper extremities and 3 out of 5 in bilateral lower extremities - Labs CBC & Chem 7: 04/04/20 07:11 04/04/20 07:11 Labs: Abnormal Lab Results - Last 24 Hours (Table) 04/03/20 04/03/20 04/04/20 Range/Units 16:55 20:26 06:09 WBC (3.8-10.6) k/uL RBC (4.30-5.90) m/uL Hgb (13.0-17.5) gm/dL Hct (39.0-53.0) % MCHC (31.0-37.0) g/dL RDW (11.5-15.5) % Plt Count (150-450) k/uL Neutrophils # (Manual) (1.3-7.7) k/uL Lymphocytes # (Manual) (1.0-4.8) k/uL Monocytes # (Manual) (0-1.0) k/uL Eosinophils # (Manual) (0-0.7) k/uL Metamyelocytes # (Man) (0) k/uL Myelocytes # (Manual) (0) k/uL Promyelocytes # (Man) (0) k/uL Chloride (98-107) mmol/L Carbon Dioxide (22-30) mmol/L BUN (9-20) mg/dL Creatinine (0.66-1.25) mg/dL Glucose (74-99) mg/dL POC Glucose (mg/dL) 114 H 128 H 132 H (75-99) mg/dL Total Protein (6.3-8.2) g/dL Albumin (3.5-5.0) g/dL 04/04/20 04/04/20 04/04/20 Range/Units 07:11 07:11 12:08 WBC 28.1 H (3.8-10.6) k/uL RBC 3.96 L (4.30-5.90) m/uL Hgb 10.5 L (13.0-17.5) gm/dL Hct 34.0 L (39.0-53.0) % MCHC 30.9 L (31.0-37.0) g/dL RDW 22.5 H (11.5-15.5) % Plt Count 542 H (150-450) k/uL Neutrophils # (Manual) 22.70 H (1.3-7.7) k/uL Lymphocytes # (Manual) 0.84 L (1.0-4.8) k/uL Monocytes # (Manual) 1.12 H (0-1.0) k/uL Eosinophils # (Manual) 1.41 H (0-0.7) k/uL Metamyelocytes # (Man) 0.84 H (0) k/uL Myelocytes # (Manual) 1.41 H (0) k/uL Promyelocytes # (Man) 0.28 H (0) k/uL Chloride 113 H (98-107) mmol/L Carbon Dioxide 19 L (22-30) mmol/L BUN 63 H (9-20) mg/dL Creatinine 1.79 H (0.66-1.25) mg/dL Glucose 120 H (74-99) mg/dL POC Glucose (mg/dL) 117 H (75-99) mg/dL Total Protein 5.5 L (6.3-8.2) g/dL Albumin 2.8 L (3.5-5.0) g/dL Microbiology - Last 24 Hours (Table) 03/31/20 14:34 Blood Culture - Preliminary Blood No Growth after 72 hours 03/31/20 14:34 Blood Culture - Preliminary Blood No Growth after 72 hours Assessment and Plan Assessment: Assessment and plan: 1. Acute kidney injury and top of chronic kidney disease stage IIIB. Disc ontinue IV fluid at this time start the patient on Lasix 40 mg orally twice every day, monitor input and output and daily weight, monitor for urinary retention, we will continue to follow up with the patient very closely.. 2. Acute hypoxic respiratory failure secondary to left lower lobe pneumonia and acute systolic heart failure. Continue Lasix 40 mg orally twice every day, continue metoprolol 50 mg orally twice every day, continue Zithromax 250 mg orally once every day. 3. History of multilobar pulmonary emboli. We'll continue with Eliquis 2.5 mg orally twice every day for life. 4. Essential thrombocytosis. We will continue with anagrelide 1 mg orally twice every day. 5. Hypertension and hypertensive cardiovascular disease. Continue metoprolol 50 mg orally twice every day and hydralazine 25 mg orally 3 times every day. 6. History of gout. Continue allopurinol 300 mg orally once every day. 7. Acute and chronic kidney disease stage II. His creatinine is back to baseli ne. 8. Paroxysmal atrial fibrillation. Continue metoprolol 50 mg orally twice every day, continue Eliquis 2.5 mg orally twice every day 9. Peripheral neuropathy. Continue gabapentin 300 mg orally twice every day. 10. Vascular dementia. Continue Aricept 5 mg orally bedtime. 11. Mixed hyperlipidemia. Continue Lipitor 20 mg orally once every day. 12. Spondylosis of the cervical spine. Continue gabapentin 300 mg orally twice every day. 13. DVT prophylaxis. Continue patient on Eliquis 2.5 mg orally twice every day. 14. GI prophylaxis. Continue patient on Protonix 40 mg orally once every day.. 15. Physical therapy evaluation. Patient may require subacute rehabilitation. 16. Guarded prognosis .
[2020-04-04 19:56] LABS: Glucose,Whole Blood 180 mg/dL (75-99)
[2020-04-05 05:30] VITALS: RESP 20
[2020-04-05] MEDS: PANTOPRAZOLE 40 MG TABLET PO SCH (06:23)
[2020-04-05 06:25] LABS: Glucose,Whole Blood 120 mg/dL (75-99)
[2020-04-05 08:12] LABS: Anisocytosis Moderate; HGB 10.2 gm/dL (13.0-17.5); Hypochromasia Moderate; MCH 26.4 pg (25.0-35.0); MCHC 30.9 g/dL (31.0-37.0); MCV 85.6 fL (80.0-100.0); Mean Platelet Volume 10.6; Microcytosis Slight; Platelet Count 596 k/uL (150-450); Poikilocytosis Slight; RBC 3.85 m/uL (4.30-5.90); RDW 22.7 % (11.5-15.5); WBC 28.8 k/uL (3.8-10.6)
[2020-04-05 08:32] LABS: Albumin 2.9 g/dL (3.5-5.0); Calcium 8.6 mg/dL (8.4-10.2); Potassium 4.3 mmol/L (3.5-5.1); Total Bilirubin 1.2 mg/dL (0.2-1.3); Total Protein 5.4 g/dL (6.3-8.2)
--- NOTE | 2020-04-05 08:49 | P.DS ---
Providers Date of admission: 03/31/20 13:58 Expected date of discharge: 04/05/20 Attending physician: Laurita Sandra Consults: 03/31/20 13:57 Consult Physician Routine Consulting Provider: Humberto Platt Consult Reason/Comments: PNA Do you want consulting provider notified?: Yes 03/31/20 13:59 Consult Physician Routine Consulting Provider: Marc Martínez Consult Reason/Comments: PETER, solo kidney Do you want consulting provider notified?: Yes Primary care physician: Laurita Sandra Hospital Course: This is an 84-year-old male one of my patient with a previous medical history significant for hypertension and hypertensive cardio vascular disease, hyperlipidemia, chronic kidney disease stage III, history of essential thrombocytosis, history of severe spondylosis of the cervical spine, history of proximal atrial fib relation, was recently hospitalized in August 2019 where he was found to have multilobar pulmonary emboli and he was started on Eliquis 5 mg orally twice every day, and it was doubtful for whether or not to keep the patient on anticoagulation because of recurrent falls and increased risk of bleeding, eventually the decision was made to keep the patient on outpatient this point in time, he was seen in the office 3 weeks when he was found to have a significant macrocytosis with MCV of 120 with significant suppression of the bone marrow due to the use of Hydrea with leukopenia as well as from cytopenia and he was not sure 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 Moreno , his oncologist as an outpatient which she did and he was kept off Hydrea and he was supposed to go back in 2 weeks for repeat CBC and possible bone marrow biopsy for possible bone marrow disease patient was recently hospitalized at [facility] with atrial fibrillation and rapid ventricular response and he went home, patient was seen in the emergency department yesterday after a fa ll at home when he stubbed his right fifth toe and fell on the right knee as well, he was found to be hypoxemic with oxygen saturation in the low 80s, his chest x-ray showed pulmonary vascular congestion, his BUN was elevated as well as his creatinine, there was questionable pneumonia he was started on IV antibiotic in the form of Rocephin and Zithromax and he was started on oxygen and was placed on Lasix 40 mg IV push every 24 hours, after he was placed on normal saline at 50 mL an hour for home patient was seen in consultation by pulmonary medicine as well as by nephrology for further evaluation and treatment. 04/02: Patient sitting up in bed he appears to be very confused today, he thought that his [place] today, he was reoriented back that he is in [place], he is eating his breakfast, he denies any chest pain, his lesser above, he has no abdominal pain, nausea vomiting or diarrhea, he appears to be tolerating his treatment very well, he'll be seen in consultation by physical therapy as the patient is extremely weak and he may require subacute rehab physician at this point in time. 04/03: Patient sitting up in a recliner in no apparent distress, he denies any chest pain, or any shortness breath, the lost his IV today, we will continue with the Zithromax 500 mg orally once every day, he did receive last Rocephin yesterday, we will maintain the patient on Lasix 40 mg IV push every 24 hours, nephrology is following, patient will be seen and evaluated by physical therapy for possible subacute rehab rotation we will try to talk to his about the plan of care. 04/04: Patient sitting up in his recliner he is less confused today he continues to be a bit short of breath he is not coughing up any phlegm, he denies any chest pain, he denies any abdominal pain, nausea or vomiting, he is not eating as much, he had lost his IV we'll switch him to oral antibiotic with Zithromax 250 mg orally once every day, pulmonary is following, patient likely will be discharged home tomorrow morning. discharge diagnoses: 1. Acute kidney injury and top of chronic kidney disease stage IIIB. 2. Acute hypoxic respiratory failure secondary to left lower lobe pneumonia and acute systolic heart failure. 3. History of multilobar pulmonary emboli. 4. Essential thrombocytosis with Myeloproliferative disorder. 5. Hypertension and hypertensive cardiovascular disease. 6. History of gout. 7. Leukocytosis. likely related to myeloproliferative disorder. 8. Paroxysmal atrial fibrillation. 9. Peripheral neuropathy. 10. Vascular dementia. 11. Mixed hyperlipidemia. 12. Spondylosis of the cervical spine. 13. Gait dysfunction with recurrent falls. 14. Diabetes mellitus type 2. Patient Condition at Discharge: Serious Plan - Discharge Summary Discharge Rx Participant: No New Discharge Prescriptions: New Furosemide [Lasix] 40 mg PO BID@0900,1600 #60 tab Sodium Bicarbonate Tab 650 mg PO TID #90 tab Azithromycin [Zithromax] 500 mg PO DAILY #7 tab Continue allopurinoL [Zyloprim] 300 mg PO DAILY EPINEPHrine (Auto Inject) [Epipen] 0.3 mg IM ONCE PRN PRN Reason: Anaphylaxis Gabapentin [Neurontin] 300 mg PO BID Pantoprazole Sodium [Protonix] 40 mg PO AC-BRKFST Atorvastatin Calcium [Lipitor] 20 mg PO DAILY Apixaban [Eliquis] 2.5 mg PO BID #60 tablet Anagrelide HCl 1 mg PO BID Linagliptin [Tradjenta] 5 mg PO DAILY hydrALAZINE HCL [Apresoline] 25 mg PO TID Metoprolol Tartrate [Lopressor] 50 mg PO BID Discontinued Furosemide [Lasix] 40 mg PO MOWEFR Discharge Medication List allopurinoL [Zyloprim] 300 mg PO DAILY 09/01/13 [History] EPINEPHrine (Auto Inject) [Epipen] 0.3 mg IM ONCE PRN 01/06/17 [History] Gabapentin [Neurontin] 300 mg PO BID 06/13/17 [History] Pantoprazole Sodium [Protonix] 40 mg PO AC-BRKFST 08/04/17 [History] Atorvastatin Calcium [Lipitor] 20 mg PO DAILY 08/14/19 [History] Apixaban [Eliquis] 2.5 mg PO BID #60 tablet 11/11/19 [Rx] Anagrelide HCl 1 mg PO BID 02/07/20 [History] Linagliptin [Tradjenta] 5 mg PO DAILY 03/31/20 [History] Metoprolol Tartrate [Lopressor] 50 mg PO BID 03/31/20 [History] hydrALAZINE HCL [Apresoline] 25 mg PO TID 03/31/20 [History] Azithromycin [Zithromax] 500 mg PO DAILY #7 tab 04/05/20 [Rx] Furosemide [Lasix] 40 mg PO BID@0900,1600 #60 tab 04/05/20 [Rx] Sodium Bicarbonate Tab 650 mg PO TID #90 tab 04/05/20 [Rx] Follow up Appointment(s)/Referral(s): Laurita Sandra MD [Primary Care Provider] - 1 Week [facility] Visiting Nurse, [NON-STAFF] - Discharge Disposition: HOME WITH HOME HEALTH SERVICES
[2020-04-05] MEDS: GABAPENTIN 300 MG CAP PO SCH (10:09)
[2020-04-05] MEDS: LINAGLIPTIN 5 MG TABLET PO SCH (10:09)
[2020-04-05] MEDS: AZITHROMYCIN 500 MG TAB PO SCH (10:09)
[2020-04-05] MEDS: METOPROLOL TARTRATE 50 MG TAB PO SCH (10:09)
[2020-04-05] MEDS: hydrALAZINE HCL 25 MG TAB PO SCH (10:09)
[2020-04-05] MEDS: APIXABAN 2.5 MG TABLET PO SCH (10:09)
[2020-04-05] MEDS: SODIUM BICARBONATE TAB 650 MG TAB PO SCH (10:09)
[2020-04-05] MEDS: allopurinoL 300 MG TAB PO SCH (10:09)
[2020-04-05] MEDS: ATORVASTATIN 20 MG TAB PO SCH (10:09)
[2020-04-05] MEDS: FUROSEMIDE 40 MG TAB PO SCH (10:10)
[2020-04-05] MEDS: AGRYLIN PO SCH (10:10)
[2020-04-05 10:38] LABS: Band Neutrophils % 5 %; Basophils # (M) 0.29 k/uL (0-0.2); Eosinophils # (M) 0.86 k/uL (0-0.7); Lymphocytes # (M) 0.86 k/uL (1.0-4.8); Metamyelocytes # (M) 0.58 k/uL (0); Metamyelocytes % 2 %; Monocytes # (M) 1.73 k/uL (0-1.0); Myelocytes # (M) 0.86 k/uL (0); Myelocytes % 3 %; Neutrophils % (M) 78 %; Nucleated Red Blood Cells 0 /100 WBC (0-0); Total Cells Counted 200
[2020-04-05 10:39] LABS: Large Platelets Present; Ovalocytes Present
[2020-04-05 11:17] VITALS: BP 101/62; PULSE 111; TEMP 98
[2020-04-05 11:38] LABS: Glucose,Whole Blood 161 mg/dL (75-99)
--- NOTE | 2020-04-05 14:13 | PN ---
PROGRESS NOTE Patient is seen for followup for acute kidney injury, mostly associated with hypotension causing ATN, currently being diuresed for volume overload. Serum creatinine had gone down to 1.7 yesterday. Today it is at 1.9. The patient is comfortable, sitting out of bed. He denies any significant complaints. PHYSICAL EXAMINATION: On examination today, blood pressure was 101/62, heart rate 111 per minute. He is afebrile. EXAMINATION OF THE HEART: S1, S2. EXAMINATION OF LUNGS: Decreased breath sounds at bases. Abdomen is soft, nontender. Examination of lower extremities shows no evidence of edema. [employer] exam grossly intact. LABS: Labs show sodium 137, potassium 4.3, chloride 108, CO2 is 18, BUN 60, creatinine 1.9, hemoglobin of 10.2 g/dL. ASSESSMENT: 1. Acute kidney injury, acute tubular necrosis with volume overload, improving. Serum creatinine a bit higher today I will hold off on the Lasix and we can evaluate as outpatient for need for diuretics. 2. Volume overload, currently improved. 3. Chronic kidney disease stage 3B, with baseline creatinine 1.5-1.8 with solitary kidney and nephrosclerosis. 4. 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 5. Cardiomyopathy, ejection fraction 40% to 45%. 6. Congestive heart failure, acute on top of chronic, mostly systolic. 7. Metabolic acidosis, maintained on oral sodium bicarb. PLAN: Continue with oral sodium bicarb. Hold Lasix for now and can resume Lasix as outpatient post discharge. Need to monitor for volume status. MMODL / IJN: [id number] /
--- NOTE | 2020-04-05 14:47 | P.PN ---
Subjective Progress Note Date: 04/05/20 Principal diagnosis: Acute hypoxic respiratory failure related to acute exacerbation of CHF and left lower lobe community acquired pneumonia This is an 84-year-old male patient who has a history of hyperlipidemia, hypertension, gastroesophageal reflux disease, chronic renal disease, dementia, CVA amended diverticulitis, GI bleed, kidney donor of the right kidney is anticoagulated with Eliquis. He was brought into the emergency room yesterday after stubbing his right fifth toe and unable to stop the bleeding. He was also found to be hypoxic on room air and his chest x-ray revealed evidence of fluid volume overload/CHF. He was admitted for the same. He is seen today in consultation on the selective care unit. He is currently resting comfortably in bed. Awake and alert in no acute distress. Currently maintaining O2 saturations in the upper 90s on 3 L/m per nasal cannula. He is afebrile. He is tachycardic in the 120s, atrial fibrillation. White count 29.0. Hemoglobin 11.0. Sodium 142. Potassium 5.1. Creatinine 2.52. Pro-calcitonin 0.38. ProBNP 14,100. Troponin negative 1. Hightower virus not detected. He has been initiated on azithromycin and ceftriaxone. No diuretics. Patient was reevaluated today on 04/02/2020, remains on the medical floor, co nfused, patient is not in any form of respiratory distress, he has some vague lower abdominal pain, no nausea, no vomiting, no diarrhea, denies even being short of breath. His only complaint is some vague lower abdominal pain. Patient remains on diuretics, he is also on antibiotics and seems to be clinically improving. Continues to have leukocytosis with WBC count of 27.0, he was initially admitted with a WBC count of 29.0. His electrolytes are improving. And his BUN and creatinine are improving in spite of diuresis. Patient was placed on Lasix at 40 mg IV push daily. Is also on Rocephin and Zithromax. His IV fluid is at KVO. On today's evaluation of 04/03/2020 the patient is on room air oxygen. He is sitting up on a chair. He is still reporting some limited shortness of breath. The follow-up chest x-ray was done and showed right lower lobe pulmonary infiltrates persist overdose with interval improvement. The patient remains on Zithromax and IV fluid in the rate of 25 mL an hour. He remains on metoprolol for rate control at a dose of 50 mg by mouth twice a day and he is also on long- term anticoagulation with Eliquis. On the blood work, the white cell count is elevated at 27, creatinine is at 2.17 with a BUN of 73 and a serum bicarbonate at 18. On 04/04/2020 patient seen in follow-up on selective care unit. He is resting comfortably, he is currently on 2 L of oxygen, there is to be in no acute distress, no cough, no cul-de-sac chest pain, no hemoptysis, cannot tell mild lower extremity edema lung sounds are positive for a few scattered rhonchi, no wheezing. His last chest x-ray from yesterday showed a right lower lobe infiltrate persistence with mild interval improvement. Patient continues on diuretics, he has been transitioned to oral Lasix 40 mg twice a day, and he remains on antibiotics in the form of azithromycin. Cultures show no growth. He has had no fever or chills, new. On 04/05/2020 patient seen in follow-up on selective care unit, he is breathing easier, this had no acute events overnight, on 2 L of oxygen his pulse ox is 96%, room air pulse ox at rest is 91%, room air pulse ox with exercise is 94%, and patient did not qualify for home oxygen, no worsening dyspnea, no wheezing, no rhonchi. No complaints of chest pain. No fever or chills. Blood cultures have been negative. His white blood cell count today is relatively stable at 28.8, hemoglobin is 10.2. Chloride was 108, CO2 is 18, BUN is 60 creatinine is 1.9. Patient is currently not on any antibiotics. He has completed a course of azithromycin and Rocephin. Doing well, he is working with physical therapy, however she still weak, he can ambulate short distances, has to sit and rest to recover, and patient will need 24-hour care with at home or ECF. No other acute events overnight. Objective - Vital Signs Vital signs: Vital Signs Temp 98.0 F 04/05/20 08:00 Pulse 111 H 04/05/20 08:00 Resp 20 04/05/20 08:00 BP 101/62 04/05/20 08:00 Pulse Ox 91 L 04/05/20 11:30 Intake & Output 04/04/20 04/05/20 04/05/20 18:59 06:59 18:59 Intake Total 120 240 240 Output Total 800 200 Balance 120 -560 40 Weight 91 kg Intake: Oral 120 240 240 Output: Urine 800 200 Other: Voiding Method Toilet Toilet Toilet # Voids 0 1 1 # Bowel Movements 0 1 1 - Exam GENERAL EXAM: Alert, active, 84-year-old white male on 2 L of oxygen, with pulse ox of 97% resting comfortably in the recliner comfortable in no apparent distress. HEAD: Normocephalic/atraumatic. EYES: Normal reaction of pupils, equal size. Conjunctiva pink, sclera white. NOSE: Clear with pink turbinates. THROAT: No erythema or exudates. NECK: No masses, no JVD, no thyroid enlargement, no adenopathy. CHEST: No chest wall deformity. Symmetrical expansion. LUNGS: Equal air entry with scattered rhonchi CVS: Regular rate and rhythm, normal S1 and S2, no gallops, no murmurs, no rubs ABDOMEN: Soft, nontender. No hepatosplenomegaly, normal bowel sounds, no guarding or rigidity. EXTREMITIES: No clubbing, no edema, no cyanosis, 2+ pulses and upper and lower extremities. MUSCULOSKELETAL: Muscle strength and tone normal. SPINE: No scoliosis or deformity SKIN: No rashes CENTRAL NERVOUS SYSTEM: Alert and oriented -3. No focal deficits, tone is normal in all 4 extremities. PSYCHIATRIC: Alert and oriented -3. Appropriate affect. Intact judgment and insight. - Labs CBC & Chem 7: 04/05/20 07:48 04/05/20 07:48 Labs: Abnormal Lab Results - Last 24 Hours (Table) 04/04/20 04/04/20 04/05/20 Range/Units 16:58 19:55 06:12 WBC (3.8-10.6) k/uL RBC (4.30-5.90) m/uL Hgb (13.0-17.5) gm/dL Hct (39.0-53.0) % MCHC (31.0-37.0) g/dL RDW (11.5-15.5) % Plt Count (150-450) k/uL Neutrophils # (Manual) (1.3-7.7) k/uL Lymphocytes # (Manual) (1.0-4.8) k/uL Monocytes # (Manual) (0-1.0) k/uL Eosinophils # (Manual) (0-0.7) k/uL Basophils # (Manual) (0-0.2) k/uL Metamyelocytes # (Man) (0) k/uL Myelocytes # (Manual) (0) k/uL Chloride (98-107) mmol/L Carbon Dioxide (22-30) mmol/L BUN (9-20) mg/dL Creatinine (0.66-1.25) mg/dL Glucose (74-99) mg/dL POC Glucose (mg/dL) 125 H 180 H 120 H (75-99) mg/dL Total Protein (6.3-8.2) g/dL Albumin (3.5-5.0) g/dL 04/05/20 04/05/20 04/05/20 Range/Units 07:48 07:48 11:30 WBC 28.8 H (3.8-10.6) k/uL RBC 3.85 L (4.30-5.90) m/uL Hgb 10.2 L (13.0-17.5) gm/dL Hct 33.0 L (39.0-53.0) % MCHC 30.9 L (31.0-37.0) g/dL RDW 22.7 H (11.5-15.5) % Plt Count 596 H (150-450) k/uL Neutrophils # (Manual) 23.90 H (1.3-7.7) k/uL Lymphocytes # (Manual) 0.86 L (1.0-4.8) k/uL Monocytes # (Manual) 1.73 H (0-1.0) k/uL Eosinophils # (Manual) 0.86 H (0-0.7) k/uL Basophils # (Manual) 0.29 H (0-0.2) k/uL Metamyelocytes # (Man) 0.58 H (0) k/uL Myelocytes # (Manual) 0.86 H (0) k/uL Chloride 108 H (98-107) mmol/L Carbon Dioxide 18 L (22-30) mmol/L BUN 60 H (9-20) mg/dL Creatinine 1.90 H (0.66-1.25) mg/dL Glucose 139 H (74-99) mg/dL POC Glucose (mg/dL) 161 H (75-99) mg/dL Total Protein 5.4 L (6.3-8.2) g/dL Albumin 2.9 L (3.5-5.0) g/dL Microbiology - Last 24 Hours (Table) 03/31/20 14:34 Blood Culture - Preliminary Blood No Growth after 96 hours 03/31/20 14:34 Blood Culture - Preliminary Blood No Growth after 96 hours Assessment and Plan Plan: Assessment: #1. Acute hypoxic respiratory failure secondary to acute on chronic systolic CHF and left lower lobe pneumonia, community acquired #2. Chronic A. fib on Eliquis #3. Leukocytosis secondary to pneumonia #4. Acute on chronic kidney injury, improving #5. Injury to the right fifth toe with uncontrolled bleeding, improved #6. History of dementia #7. History of CVA #8. Benign essential hypertension #9. Medical debility and deconditioning #10. History of GERD #11. Right kidney donor Plan: Continue current medical treatment, she will continue on 7 more days of oral az ithromycin, will continue on oral Lasix, has had no fever or chills, culture data has been reviewed and remains negative, no acute events overnight, increase activity as tolerated, stable for discharge home from a pulmonary perspective with visiting nurses and outpatient follow-up. I performed a history & physical examination of the patient and discussed their management with my nurse practitioner, Cyndi Barron. I reviewed the nurse practitioner's note and agree with the documented findings and plan of care. Lung sounds are positive for diminished breath sounds. The findings and the imp ression was discussed with the patient. I attest to the documentation by the nurse practitioner. Time with Patient: Less than 30
== END 2020-04-05 14:45 | disposition home health service (06) | DRG 291 ==
LOC: EC 11:14 → 3SCARD 13:58
PROVIDERS: ADMIT Internal Medicine; ATTEND Internal Medicine
DX: I13.0 Hypertensive heart and chronic kidney disease with heart failure and stage 1 through stage 4 chronic kidney disease, or unspecified chronic kidney disease (principal); I50.23 Acute on chronic systolic (congestive) heart failure; J18.9 Pneumonia, unspecified organism; J96.01 Acute respiratory failure with hypoxia; N17.0 Acute kidney failure with tubular necrosis; C94.6 Myelodysplastic disease, not elsewhere classified; E87.2 Acidosis; I48.20 Chronic atrial fibrillation, unspecified; D47.3 Essential (hemorrhagic) thrombocythemia; E11.22 Type 2 diabetes mellitus with diabetic chronic kidney disease; E78.2 Mixed hyperlipidemia; E11.51 Type 2 diabetes mellitus with diabetic peripheral angiopathy without gangrene; E11.40 Type 2 diabetes mellitus with diabetic neuropathy, unspecified; E86.0 Dehydration; F01.50 Vascular dementia, unspecified severity, without behavioral disturbance, psychotic disturbance, mood disturbance, and anxiety; Z86.711 Personal history of pulmonary embolism; Z79.01 Long term (current) use of anticoagulants; I42.9 Cardiomyopathy, unspecified; I48.0 Paroxysmal atrial fibrillation; Z20.822 Contact with and (suspected) exposure to COVID-19; Z86.73 Personal history of transient ischemic attack (TIA), and cerebral infarction without residual deficits; K21.9 Gastro-esophageal reflux disease without esophagitis; M06.9 Rheumatoid arthritis, unspecified; M47.812 Spondylosis without myelopathy or radiculopathy, cervical region; N18.32 Chronic kidney disease, stage 3b; R29.6 Repeated falls; R79.1 Abnormal coagulation profile; S91.114A Laceration without foreign body of right lesser toe(s) without damage to nail, initial encounter; W18.30XA Fall on same level, unspecified, initial encounter; Z91.81 History of falling; T45.1X5A Adverse effect of antineoplastic and immunosuppressive drugs, initial encounter; Y92.009 Unspecified place in unspecified non-institutional (private) residence as the place of occurrence of the external cause; Z52.4 Kidney donor; Z79.84 Long term (current) use of oral hypoglycemic drugs; Z79.899 Other long term (current) drug therapy; Z82.3 Family history of stroke; Z82.49 Family history of ischemic heart disease and other diseases of the circulatory system; Z82.71 Family history of polycystic kidney; Z83.3 Family history of diabetes mellitus; Z85.828 Personal history of other malignant neoplasm of skin; Z86.718 Personal history of other venous thrombosis and embolism; Z87.440 Personal history of urinary (tract) infections; R26.9 Unspecified abnormalities of gait and mobility; Z87.19 Personal history of other diseases of the digestive system; Z90.5 Acquired absence of kidney; Z96.643 Presence of artificial hip joint, bilateral; Z98.41 Cataract extraction status, right eye; Z96.1 Presence of intraocular lens; Z90.89 Acquired absence of other organs; G89.29 Other chronic pain; R63.0 Anorexia; Z68.28 Body mass index [BMI] 28.0-28.9, adult
CPT/HCPCS: 12001; 36415; 71045; 71046; 76770; 80048; 80053; 81001; 83605; 83735; 83880; 84145; 84484; 85025; 85610; 85730; 87040; 87635; 93005; 94760; 96365; 99285

== ENCOUNTER 2020-04-18 11:01 | Emergency (ER) | payer MEDICARE ==
[2020-04-18 11:21] VITALS: PULSE 98; RESP 18
[2020-04-18] MEDS ORDERED: HYDROcodone/APAP 5-325MG 1 EACH TAB PO STA (11:43)
--- NOTE | 2020-04-18 12:14 | ED ---
Fall HPI - General Chief Complaint: Fall Stated Complaint: Fall/Hip pain Time Seen by Provider: 04/18/20 11:24 Source: patient Mode of arrival: wheelchair - History of Present Illness Initial Comments: Patient is an 84-year-old male, with history of dementia, diabetes, heart disease, presenting to the emergency department with his with complaint of right hip pain. states that last night he slipped out of his reclining chair. states that she did not witness this fall, but he was sitting in his reclining chair then he was seated on the floor. He seemed okay afterwards, he was able to ambulate on his own. He states he does sometimes use a walker but is able to ambulate without assistance as well. Patient states that throughout today he's been complaining of right hip pain that seems to be getting worse. He does have history of bilateral hip replacements, the right was over 20 years ago. No knee replacements. Patient denies hitting his head, he denies pain anywhere else, no chest pain or shortness of breath, no abdominal pain. He has no further complaints at this time. Upon arrival to the ER, his vitals are stable. - Related Data Home Medications Medication Instructions Recorded Confirmed EPINEPHrine (Auto Inject) [Epipen] 0.3 mg IM ONCE PRN 01/06/17 04/18/20 Gabapentin [Neurontin] 300 mg PO BID 06/13/17 04/18/20 Pantoprazole Sodium [Protonix] 40 mg PO AC-BRKFST 08/04/17 04/18/20 Atorvastatin Calcium [Lipitor] 20 mg PO DAILY 08/14/19 04/18/20 Anagrelide HCl 1 mg PO BID 02/07/20 04/18/20 Linagliptin [Tradjenta] 5 mg PO DAILY 03/31/20 04/18/20 Metoprolol Tartrate [Lopressor] 50 mg PO BID 03/31/20 04/18/20 Aspirin [Adult Low Dose Aspirin EC] 81 mg PO DAILY 04/14/20 04/18/20 Donepezil [Aricept] 5 mg PO HS 04/14/20 04/18/20 Furosemide [Lasix] 40 mg PO BID@0900,1600 04/14/20 04/18/20 Allopurinol [Zyloprim] 300 mg PO DAILY 04/18/20 04/18/20 hydrALAZINE HCL [Apresoline] 25 mg PO TID 04/18/20 04/18/20 Previous Rx's Medication Instructions Recorded Apixaban [Eliquis] 2.5 mg PO BID #60 tablet 11/11/19 Sodium Bicarbonate Tab 650 mg PO TID #90 tab 04/05/20 Allergies Allergy/AdvReac Type Severity Reaction Status Date / Time venom-honey bee Allergy Anaphylaxis Verified 04/18/20 12:05 [bee venom (honey bee)] rivastigmine AdvReac Rash/Hives Verified 04/18/20 12:05 Review of Systems ROS Statement: Those systems with pertinent positive or pertinent negative responses have been documented in the HPI. ROS Other: All systems not noted in ROS Statement are negative. 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, UTI, gout, PAD, diverticular disease, skin cancer with removals and has more skin cancer to be removed from top of L ear, severe spondylosis of cervical spine, chonic back/cervical pain, rheumatic fever as a child History of Any Multi-Drug Resistant Organisms: None Reported Past Surgical History: Adenoidectomy, Hernia Repair, Joint Replacement, Orthopedic Surgery, Tonsillectomy Additional Past Surgical History / Comment(s): R kidney donor, kiesha hip replacement, L hand trigger finger, uvuloplasty, left carotid stent, L inguinal hernia repair, deviated septum repair, colonoscopy, R cataract removal with lens, skin cancer removals, pain procedures. Past Anesthesia/Blood Transfusion Reactions: No Reported Reaction Past Psychological History: No Psychological Hx Reported Smoking Status: Never smoker Past Alcohol Use History: Occasional Past Drug Use History: None Reported - Past Family History Father Family Medical History: CVA/TIA Additional Family Medical History / Comment(s): Father of a CVA at the age of 80yrs. Mother Family Medical History: No Reported History Additional Family Medical History / Comment(s): Mother at age 55 from polycystic kidney disease. Brother(s) Additional Family Medical History / Comment(s): Patient has 1 brother with multiple medical problems including diabetes. Sister(s) Family Medical History: Renal Disease Additional Family Medical History / Comment(s): Patient has one sister that at age 60 from kidney failure due to polycystic kidney disease. Daughter(s) Family Medical History: No Reported History Additional Family Medical History / Comment(s): Patient has one daughter with no major medical problems. Son(s) Additional Family Medical History / Comment(s): Patient has 5 sons. 2 at premature . One while skiing from a myocardial infarction at age 32. One son is alive with no major medical problems. General Exam - General Exam Comments Initial Comments: GENERAL: Patient is well-developed and well-nourished. Patient is nontoxic and in no acute distress. HEAD: Atraumatic, normocephalic. No hematoma, no signs of basal skull fracture. No bruising. EYES: Pupils equal round and reactive to light, extraocular movements intact, sclera anicteric, conjunctiva are normal. Eyelids were unremarkable. ENT: TMs normal, nares patent, oropharynx clear without exudates. Moist mucous membranes. NECK: Normal range of motion, supple without lymphadenopathy or JVD. No neck pain, no midline tenderness. LUNGS: Unlabored respirations. Breath sounds clear to auscultation bilaterally and equal. No wheezes rales or rhonchi. HEART: Regular rate and rhythm without murmurs, rubs or gallops. ABDOMEN: Soft, nontender, normoactive bowel sounds. No guarding, no rebound. No masses appreciated. : Deferred MUSCULOSKELETAL: She has some mild pain with palpation of the right lateral hip, he does seem to have full active range of motion of the right hip with minimal pain, some mild pain with internal and external rotation. No bruising, no leg length discrepancy, no acute deformity. He is neurovascular intact. No clubbing or cyanosis. NEUROLOGICAL: Patient is alert and oriented x 2, hx of dementia. Motor and sensory are also intact. Cranial nerves II through XII grossly intact. Symmetrical smile. Normal speech. Patient was at able to ambulate in the ER. PSYCH: Normal mood, normal affect. SKIN: Warm, Dry, normal turgor, no rashes or lesions noted. Limitations: no limitations Course Vital Signs 04/18/20 04/18/20 11:18 12:49 Temperature 97.5 F L Pulse Rate 98 98 Respiratory 18 18 Rate Blood Pressure 98/61 106/72 O2 Sat by Pulse 91 L 94 L Oximetry Medical Decision Making - Medical Decision Making Patient is a 84-year-old male here for right hip pain after he slipped out of his chair yesterday. He does have history of bilateral hip replacements. No other injuries from this fall, he did not hit his head. X-rays today of the right hip and pelvis revealed no acute fractures dislocations, prosthesis looks intact. Patient was given a pain medicine here in the ER. He was able to ambulate. I discussed with patient and patient's is most likely a contusion or strain. Recommended using his walker at home until pain improves. If symptoms persist, follow up with orthopedic doctor. Patient's is in agreement this plan of care. Patient stable for discharge. Return parameters were discussed with them and they verbalized understanding. Case discussed with Dr. Cruz. Disposition Clinical Impression: Fall, Right hip pain Disposition: HOME SELF-CARE Condition: Stable Instructions (If sedation given, give patient instructions): Hip Pain (ED) Additional Instructions: Please return to the Emergency Department if symptoms worsen or any other concerns. Recommend Tylenol for her right hip pain. Please use walker until pain improves. Follow-up with orthopedic or family doctor if symptoms persist. Is patient prescribed a controlled substance at d/c from ED?: No Referrals: Laurita Sandra MD [Primary Care Provider] - 1-2 days
--- NOTE | 2020-04-18 12:26 | XR ---
EXAMINATION TYPE: XR Hip RT and AP Pelvis DATE OF EXAM: 04/18/2020 COMPARISON: NONE HISTORY: Pelvic and right hip pain after fall injury last night. TECHNIQUE: 2 AP portable views of the pelvis are obtained. Two views of the right hip are obtained. FINDINGS: There is no acute fracture/dislocation evident in the pelvis. The sacroiliac joints appea r symmetric . Pubic symphysis is intact. Metallic hardware from bilateral hip arthroplasty satisfacto ry in position on frontal view. Surgical clips overlie the right lower quadrant and upper pelvis. Rickie e central vascular calcification is present bilaterally. Two views of right hip show no acute fracture or dislocation. The overlying soft tissue is unremarkab le. IMPRESSION: There is no acute fracture or dislocation in the pelvis or right hip.
[2020-04-18 12:50] VITALS: BP 106/72
[2020-04-18 13:11] VITALS: TEMP 98
== END 2020-04-18 13:11 | disposition home or self-care (01) ==
LOC: EC 11:01
DX: M25.551 Pain in right hip (principal); I13.0 Hypertensive heart and chronic kidney disease with heart failure and stage 1 through stage 4 chronic kidney disease, or unspecified chronic kidney disease; I50.9 Heart failure, unspecified; E11.22 Type 2 diabetes mellitus with diabetic chronic kidney disease; E11.40 Type 2 diabetes mellitus with diabetic neuropathy, unspecified; N18.9 Chronic kidney disease, unspecified; E78.5 Hyperlipidemia, unspecified; K21.9 Gastro-esophageal reflux disease without esophagitis; M06.9 Rheumatoid arthritis, unspecified; M10.9 Gout, unspecified; Z79.82 Long term (current) use of aspirin; Z79.899 Other long term (current) drug therapy; Z79.84 Long term (current) use of oral hypoglycemic drugs; Z91.030 Bee allergy status; Z88.8 Allergy status to other drugs, medicaments and biological substances; Z86.73 Personal history of transient ischemic attack (TIA), and cerebral infarction without residual deficits; Z96.643 Presence of artificial hip joint, bilateral; Z85.828 Personal history of other malignant neoplasm of skin; Z86.718 Personal history of other venous thrombosis and embolism; Z86.711 Personal history of pulmonary embolism
CPT/HCPCS: 73502; 99283

== ENCOUNTER 2020-05-10 09:20 | Inpatient (IN) | payer MEDICARE ==
[2020-05-10] MEDS ORDERED: SODIUM CHLORIDE 0.9% 500 ML 500 ML IV STA (09:31)
[2020-05-10] MEDS ORDERED: PANTOPRAZOLE 40 MG/10 ML VIAL IVP STA (09:32)
[2020-05-10] MEDS ORDERED: DILTIAZEM DRIP BOLUS FROM BAG 1 MG SOLN IV ONE (10:01)
[2020-05-10] MEDS ORDERED: ONDANSETRON 4 MG/2 ML VIAL IVP STA (10:03)
[2020-05-10] MEDS ORDERED: MORPHINE SULFATE 4 MG/ML SYRINGE IVP STA (10:03)
[2020-05-10 10:25] LABS: INR 1.3 (<1.2); Partial Thromboplastin Time 25.6 sec (22.0-30.0); Prothrombin Time 13.6 sec (9.0-12.0)
[2020-05-10 10:28] LABS: Albumin 3.7 g/dL (3.5-5.0); Calcium 9.5 mg/dL (8.4-10.2); Magnesium 2.4 mg/dL (1.6-2.3); Potassium 4.5 mmol/L (3.5-5.1); Total Bilirubin 2.2 mg/dL (0.2-1.3); Total Protein 6.7 g/dL (6.3-8.2)
[2020-05-10] MEDS: DILTIAZEM 125 MG in SODIUM CHLORIDE 0.9% 100 ML IV SCH (10:28)
--- NOTE | 2020-05-10 10:30 | ED ---
General Adult HPI - General Chief complaint: GI Bleed Stated complaint: GI Bleed Time Seen by Provider: 05/10/20 09:23 Source: patient, EMS Mode of arrival: EMS Limitations: no limitations - History of Present Illness Initial comments: 84-year-old male presenting from home, patient had been found by his , complaining of abdominal pain, crawling on her bedroom floor with dark stool. He has history of atrial fibrillation and EMS was uncertain if the patient was currently on anticoagulation. He was found to be in atrial fibrillation with a rapid ventricular response by EMS. According to EMS he additionally has been complaining of some diffuse abdominal pain and has not been eating or drinking well in the past several days. He does have history of dementia and history is somewhat limited from the patient himself. - Related Data Home Medications Medication Instructions Recorded Confirmed EPINEPHrine (Auto Inject) [Epipen] 0.3 mg IM ONCE PRN 01/06/17 05/10/20 Gabapentin [Neurontin] 300 mg PO BID 06/13/17 05/10/20 Pantoprazole Sodium [Protonix] 40 mg PO AC-BRKFST 08/04/17 05/10/20 Atorvastatin Calcium [Lipitor] 20 mg PO DAILY 08/14/19 05/10/20 Anagrelide HCl 1 mg PO DAILY 02/07/20 05/10/20 Linagliptin [Tradjenta] 5 mg PO DAILY 03/31/20 05/10/20 Metoprolol Tartrate [Lopressor] 50 mg PO BID 03/31/20 05/10/20 Aspirin [Adult Low Dose Aspirin EC] 81 mg PO DAILY 04/14/20 05/10/20 Donepezil [Aricept] 5 mg PO HS 04/14/20 05/10/20 Furosemide [Lasix] 40 mg PO BID@0900,1600 04/14/20 05/10/20 Allopurinol [Zyloprim] 300 mg PO DAILY 04/18/20 05/10/20 hydrALAZINE HCL [Apresoline] 25 mg PO TID 04/18/20 05/10/20 Previous Rx's Medication Instructions Recorded Apixaban [Eliquis] 2.5 mg PO BID #60 tablet 11/11/19 Sodium Bicarbonate Tab 650 mg PO TID #90 tab 04/05/20 Allergies Allergy/AdvReac Type Severity Reaction Status Date / Time venom-honey bee Allergy Anaphylaxis Verified 05/10/20 12:13 [bee venom (honey bee)] rivastigmine AdvReac Rash/Hives Verified 05/10/20 12:13 Review of Systems ROS Statement: Those systems with pertinent positive or pertinent negative responses have been documented in the HPI. ROS Other: All systems not noted in ROS Statement are negative. 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, UTI, gout, PAD, diverticular disease, skin cancer with removals and has more skin cancer to be removed from top of L ear, severe spondylosis of cervical spine, chonic back/cervical pain, rheumatic fever as a child History of Any Multi-Drug Resistant Organisms: None Reported Past Surgical History: Adenoidectomy, Hernia Repair, Joint Replacement, Orthopedic Surgery, Tonsillectomy Additional Past Surgical History / Comment(s): R kidney donor, kiesha hip replacement, L hand trigger finger, uvuloplasty, left carotid stent, L inguinal hernia repair, deviated septum repair, colonoscopy, R cataract removal with lens, skin cancer removals, pain procedures. Past Anesthesia/Blood Transfusion Reactions: No Reported Reaction Past Psychological History: No Psychological Hx Reported Smoking Status: Never smoker Past Alcohol Use History: Occasional Past Drug Use History: None Reported - Past Family History Father Family Medical History: CVA/TIA Additional Family Medical History / Comment(s): Father of a CVA at the age of 80yrs. Mother Family Medical History: No Reported History Additional Family Medical History / Comment(s): Mother at age 55 from polycystic kidney disease. Brother(s) Additional Family Medical History / Comment(s): Patient has 1 brother with multiple medical problems including diabetes. Sister(s) Family Medical History: Renal Disease Additional Family Medical History / Comment(s): Patient has one sister that at age 60 from kidney failure due to polycystic kidney disease. Daughter(s) Family Medical History: No Reported History Additional Family Medical History / Comment(s): Patient has one daughter with no major medical problems. Son(s) Additional Family Medical History / Comment(s): Patient has 5 sons. 2 at premature . One while skiing from a myocardial infarction at age 32. One son is alive with no major medical problems. General Exam Limitations: no limitations General appearance: alert, in no apparent distress Head exam: Present: atraumatic, normocephalic Eye exam: Present: normal appearance, PERRL ENT exam: Present: mucous membranes dry Neck exam: Present: normal inspection. Absent: tenderness, meningismus Respiratory exam: Absent: normal lung sounds bilaterally, respiratory distress, wheezes Cardiovascular Exam: Present: tachycardia, irregular rhythm GI/Abdominal exam: Present: soft, distended, tenderness (Minimal tenderness). Absent: guarding, rebound, rigid Rectal exam: Present: normal inspection, normal rectal tone, black stool. Absent: hemorrhoids Extremities exam: Present: normal inspection, normal capillary refill. Absent: pedal edema Neurological exam: Present: alert. Absent: motor sensory deficit Skin exam: Present: warm, dry, intact. Absent: cyanosis, diaphoretic Course Vital Signs 05/10/20 05/10/20 05/10/20 09:30 10:56 11:19 Temperature 98.6 F 97.9 F Pulse Rate 154 H 134 H 135 H Respiratory 20 18 18 Rate Blood Pressure 127/83 106/78 122/73 O2 Sat by Pulse 97 96 94 L Oximetry 05/10/20 12:33 Temperature Pulse Rate 116 H Respiratory 18 Rate Blood Pressure 114/77 O2 Sat by Pulse 100 Oximetry EKG Findings - EKG Comments: EKG Findings:: EKG: H fibrillation with RVR, low voltage, rate of 151, QRS duration 84, QTC 456, no ST segment elevation. Medical Decision Making - Medical Decision Making 84-year-old male history of dementia presenting with worsening level consciousness, possible fall, and melanotic stool. Patient found to be in A. fib with RVR, stable blood pressure. He does have melanotic stool on exam. Workup is initiated, including CT brain CT cervical spine given the possibility of trauma. This does show hypodensity in the left subcortical region of the occipital lobe which is new compared to prior CT. No acute fracture subluxation the cervical spine. Chest x-ray showing a right pleural effusion. CT of the chest abdomen pelvis is also performed results pending. Patient has a hemogl obin of 12. He is started on Protonix IV as well as Cardizem for rate control of itchy fibrillation with RVR. He's been admitted with audiology and GI on consult. Case discussed with Dr. Sandra. - Lab Data Result diagrams: 05/10/20 09:55 05/10/20 09:55 Lab Results 05/10/20 05/10/20 05/10/20 Range/Units 09:55 09:55 09:55 WBC 33.5 H (3.8-10.6) k/uL RBC 4.60 (4.30-5.90) m/uL Hgb 12.2 L (13.0-17.5) gm/dL Hct 41.1 (39.0-53.0) % MCV 89.4 (80.0-100.0) fL MCH 26.5 (25.0-35.0) pg MCHC 29.6 L (31.0-37.0) g/dL RDW 23.4 H (11.5-15.5) % Plt Count 996 H (150-450) k/uL MPV 9.6 Neutrophils % (Manual) 82 % Band Neuts % (Manual) 2 % Lymphocytes % (Manual) 7 % Monocytes % (Manual) 6 % Eosinophils % (Manual) 1 % Basophils % (Manual) 1 % Metamyelocytes % 1 % Myelocytes % 2 % Neutrophils # (Manual) 28.10 H (1.3-7.7) k/uL Lymphocytes # (Manual) 2.35 (1.0-4.8) k/uL Monocytes # (Manual) 2.01 H (0-1.0) k/uL Eosinophils # (Manual) 0.34 (0-0.7) k/uL Basophils # (Manual) 0.34 H (0-0.2) k/uL Metamyelocytes # (Man) 0.34 H (0) k/uL Myelocytes # (Manual) 0.67 H (0) k/uL Nucleated RBCs 0 (0-0) /100 WBC Manual Slide Review Performed Toxic Granulation Present Polychromasia Present Hypochromasia Marked Poikilocytosis Slight Anisocytosis Moderate Microcytosis Slight Macrocytosis Slight Ovalocytes Present Fragmented RBCs Present PT 13.6 H (9.0-12.0) sec INR 1.3 H (<1.2) APTT 25.6 (22.0-30.0) sec Sodium (137-145) mmol/L Potassium (3.5-5.1) mmol/L Chloride (98-107) mmol/L Carbon Dioxide (22-30) mmol/L Anion Gap mmol/L BUN (9-20) mg/dL Creatinine (0.66-1.25) mg/dL Est GFR (CKD-EPI)AfAm (>60 ml/min/1.73 sqM) Est GFR (CKD-EPI)NonAf (>60 ml/min/1.73 sqM) Glucose (74-99) mg/dL Plasma Lactic Acid Ganesh (0.7-2.0) mmol/L Calcium (8.4-10.2) mg/dL Magnesium (1.6-2.3) mg/dL Total Bilirubin (0.2-1.3) mg/dL AST (17-59) U/L ALT (4-49) U/L Alkaline Phosphatase (38-126) U/L NT-Pro-B Natriuret Pep pg/mL Total Protein (6.3-8.2) g/dL Albumin (3.5-5.0) g/dL Urine Color Yellow Urine Appearance Clear (Clear) Urine pH 5.0 (5.0-8.0) Ur Specific [place] 1.017 (1.001-1.035) Urine Protein Trace H (Negative) Urine Glucose (UA) Negative (Negative) Urine Ketones Negative (Negative) Urine Blood Negative (Negative) Urine Nitrite Negative (Negative) Urine Bilirubin Negative (Negative) Urine Urobilinogen <2.0 (<2.0) mg/dL Ur Leukocyte Esterase Negative (Negative) Stool Occult Blood (Negative) Blood Type Blood Type Recheck Bld Type Recheck Status Antibody Screen Spec Expiration Date 05/10/20 05/10/20 05/10/20 Range/Units 09:55 09:55 09:55 WBC (3.8-10.6) k/uL RBC (4.30-5.90) m/uL Hgb (13.0-17.5) gm/dL Hct (39.0-53.0) % MCV (80.0-100.0) fL MCH (25.0-35.0) pg MCHC (31.0-37.0) g/dL RDW (11.5-15.5) % Plt Count (150-450) k/uL MPV Neutrophils % (Manual) % Band Neuts % (Manual) % Lymphocytes % (Manual) % Monocytes % (Manual) % Eosinophils % (Manual) % Basophils % (Manual) % Metamyelocytes % % Myelocytes % % Neutrophils # (Manual) (1.3-7.7) k/uL Lymphocytes # (Manual) (1.0-4.8) k/uL Monocytes # (Manual) (0-1.0) k/uL Eosinophils # (Manual) (0-0.7) k/uL Basophils # (Manual) (0-0.2) k/uL Metamyelocytes # (Man) (0) k/uL Myelocytes # (Manual) (0) k/uL Nucleated RBCs (0-0) /100 WBC Manual Slide Review Toxic Granulation Polychromasia Hypochromasia Poikilocytosis Anisocytosis Microcytosis Macrocytosis Ovalocytes Fragmented RBCs PT (9.0-12.0) sec INR (<1.2) APTT (22.0-30.0) sec Sodium 145 (137-145) mmol/L Potassium 4.5 (3.5-5.1) mmol/L Chloride 112 H (98-107) mmol/L Carbon Dioxide 22 (22-30) mmol/L Anion Gap 11 mmol/L BUN 39 H (9-20) mg/dL Creatinine 1.74 H (0.66-1.25) mg/dL Est GFR (CKD-EPI)AfAm 41 (>60 ml/min/1.73 sqM) Est GFR (CKD-EPI)NonAf 35 (>60 ml/min/1.73 sqM) Glucose 145 H (74-99) mg/dL Plasma Lactic Acid Ganesh 1.7 (0.7-2.0) mmol/L Calcium 9.5 (8.4-10.2) mg/dL Magnesium 2.4 H (1.6-2.3) mg/dL Total Bilirubin 2.2 H (0.2-1.3) mg/dL AST 23 (17-59) U/L ALT 9 (4-49) U/L Alkaline Phosphatase 142 H (38-126) U/L NT-Pro-B Natriuret Pep 27472 pg/mL Total Protein 6.7 (6.3-8.2) g/dL Albumin 3.7 (3.5-5.0) g/dL Urine Color Urine Appearance (Clear) Urine pH (5.0-8.0) Ur Specific [place] (1.001-1.035) Urine Protein (Negative) Urine Glucose (UA) (Negative) Urine Ketones (Negative) Urine Blood (Negative) Urine Nitrite (Negative) Urine Bilirubin (Negative) Urine Urobilinogen (<2.0) mg/dL Ur Leukocyte Esterase (Negative) Stool Occult Blood (Negative) Blood Type Blood Type Recheck Bld Type Recheck Status Antibody Screen Spec Expiration Date 05/10/20 05/10/20 Range/Units 09:55 09:55 WBC (3.8-10.6) k/uL RBC (4.30-5.90) m/uL Hgb (13.0-17.5) gm/dL Hct (39.0-53.0) % MCV (80.0-100.0) fL MCH (25.0-35.0) pg MCHC (31.0-37.0) g/dL RDW (11.5-15.5) % Plt Count (150-450) k/uL MPV Neutrophils % (Manual) % Band Neuts % (Manual) % Lymphocytes % (Manual) % Monocytes % (Manual) % Eosinophils % (Manual) % Basophils % (Manual) % Metamyelocytes % % Myelocytes % % Neutrophils # (Manual) (1.3-7.7) k/uL Lymphocytes # (Manual) (1.0-4.8) k/uL Monocytes # (Manual) (0-1.0) k/uL Eosinophils # (Manual) (0-0.7) k/uL Basophils # (Manual) (0-0.2) k/uL Metamyelocytes # (Man) (0) k/uL Myelocytes # (Manual) (0) k/uL Nucleated RBCs (0-0) /100 WBC Manual Slide Review Toxic Granulation Polychromasia Hypochromasia Poikilocytosis Anisocytosis Microcytosis Macrocytosis Ovalocytes Fragmented RBCs PT (9.0-12.0) sec INR (<1.2) APTT (22.0-30.0) sec Sodium (137-145) mmol/L Potassium (3.5-5.1) mmol/L Chloride (98-107) mmol/L Carbon Dioxide (22-30) mmol/L Anion Gap mmol/L BUN (9-20) mg/dL Creatinine (0.66-1.25) mg/dL Est GFR (CKD-EPI)AfAm (>60 ml/min/1.73 sqM) Est GFR (CKD-EPI)NonAf (>60 ml/min/1.73 sqM) Glucose (74-99) mg/dL Plasma Lactic Acid Ganesh (0.7-2.0) mmol/L Calcium (8.4-10.2) mg/dL Magnesium (1.6-2.3) mg/dL Total Bilirubin (0.2-1.3) mg/dL AST (17-59) U/L ALT (4-49) U/L Alkaline Phosphatase (38-126) U/L NT-Pro-B Natriuret Pep pg/mL Total Protein (6.3-8.2) g/dL Albumin (3.5-5.0) g/dL Urine Color Urine Appearance (Clear) Urine pH (5.0-8.0) Ur Specific [place] (1.001-1.035) Urine Protein (Negative) Urine Glucose (UA) (Negative) Urine Ketones (Negative) Urine Blood (Negative) Urine Nitrite (Negative) Urine Bilirubin (Negative) Urine Urobilinogen (<2.0) mg/dL Ur Leukocyte Esterase (Negative) Stool Occult Blood Positive (Negative) Blood Type A Positive Blood Type Recheck A Pos Bld Type Recheck Status No Antibody Screen NEGATIVE Spec Expiration Date 05/13/2020 - 2354 Critical Care Time Critical Care Time: Yes Total Critical Care Time: 35 Disposition Clinical Impression: GI bleed, Anemia, Atrial fibrillation with RVR, Splenomegaly Disposition: ADMITTED IP TO [facility] Decision to Admit Reason: Admit from EC Decision Date: 05/10/20 Decision Time: 13:40
[2020-05-10 11:06] LABS: Anisocytosis Moderate; HCT 41.1 % (39.0-53.0); HGB 12.2 gm/dL (13.0-17.5); Hypochromasia Marked; MCH 26.5 pg (25.0-35.0); MCHC 29.6 g/dL (31.0-37.0); MCV 89.4 fL (80.0-100.0); Macrocytosis Slight; Mean Platelet Volume 9.6; Microcytosis Slight; Poikilocytosis Slight; RDW 23.4 % (11.5-15.5); WBC 33.5 k/uL (3.8-10.6)
--- NOTE | 2020-05-10 11:09 | CT ---
EXAMINATION TYPE: CT brain deyvi wo con DATE OF EXAM: 05/10/2020 COMPARISON: 08/23/2019 HISTORY: fall CT DLP: 1471.1 mGycm, Automated exposure control for dose reduction was used. CONTRAST: Patient injected with 0 mL of Isovue 300. CT of the brain is performed utilizing 3 mm thick sections through the posterior fossa and 3 mm thick sections through the remaining calvarium. Study is performed within 24 hours of arrival to the hospital. No abnormal hyperdensity is present to suggest an acute intracranial hemorrhage. No mass lesion is evident. There is some subcortical white matter hypodensity in the posterior right centrum semiovale. This ext ends to adjacent to the occipital horn of the lateral ventricle. This was present on the prior study but appears more extensive currently. Interval subcortical infarct which may be old this time likely present. Underlying mass with vasogenic edema should be considered. Additional workup with contrast-e nhanced MRI is recommended. There are scattered periventricular white matter changes present previou sly most likely on the basis of chronic white matter ischemic change. Ventricles and sulci are prominent for the patient age. Paranasal sinuses and mastoid air cells within the uxnyn-ea-ynyr are clear. IMPRESSIONS: 1. There is some hypodensity in the subcortical left occipital lobe. This may be old but an interval finding from 08/23/2019. Differential diagnosis could include underlying mass with vasogenic edema. Ad ditional workup with contrast MRI is recommended. 2. Chronic appearing periventricular white matter ischemic changes with age-related atrophy. CT cervical spine. COMPARISON: None CT of the cervical spine is performed in the axial plane at 2 mm thick sections. Reconstructed image s in the coronal, and sagittal plane are reviewed on the computer. No acute fractures are evident. Spina bifida occulta of C1 is present. Vertebral body alignment is normal. Degenerative loss of disc height is present at C5-6 C6-7 and C7-T1. Anterior vertebral body spurring is present C4-T2. Vertebral body heights are preserved. No spinal canal stenosis is evident. Uncovertebral joint hypertrophy contributes to moderate to severe left foraminal stenosis C3-4. Mild foraminal narrowing from uncovertebral joint hypertrophy is present bilaterally C4-5, greater on the right. Mild left foraminal narrowing at C5-6 and C6-7 is present . Some right apical pleural fluid appears to be present IMPRESSIONS: 1. Degenerative disc changes and foraminal stenosis discussed above. 2. Right apical pleural fluid
--- NOTE | 2020-05-10 11:16 | XR ---
EXAMINATION TYPE: XR chest 1V portable DATE OF EXAM: 05/10/2020 Comparison: 04/03/2020 Clinical History: 84-year-old male confusion, altered mental status Findings: Heart borderline enlarged. Mild interstitial prominence. There is a moderate right pleural effusion w ith adjacent opacity. Impression: New moderate right pleural effusion with adjacent atelectasis and/or consolidation.
[2020-05-10] MEDS ORDERED: SODIUM CHLORIDE 0.9% 500 ML 500 ML IV ONE (11:19)
[2020-05-10 11:34] LABS: Band Neutrophils % 2 %; Basophils # (M) 0.34 k/uL (0-0.2); Eosinophils # (M) 0.34 k/uL (0-0.7); Lymphocytes # (M) 2.35 k/uL (1.0-4.8); Metamyelocytes # (M) 0.34 k/uL (0); Metamyelocytes % 1 %; Monocytes # (M) 2.01 k/uL (0-1.0); Myelocytes # (M) 0.67 k/uL (0); Myelocytes % 2 %; Neutrophils % (M) 82 %; Nucleated Red Blood Cells 0 /100 WBC (0-0); Total Cells Counted 200; Toxic Granulation Present
[2020-05-10 11:35] LABS: Ovalocytes Present; Platelet Count 996 k/uL (150-450); Polychromasia Present
[2020-05-10 11:36] LABS: RBC Fragments Present
[2020-05-10] MEDS ORDERED: MORPHINE SULFATE 4 MG/ML SYRINGE IV PRN (12:19)
[2020-05-10] MEDS ORDERED: ACETAMINOPHEN TAB 325 MG TAB PO PRN (12:19)
[2020-05-10] MEDS ORDERED: NALOXONE 0.4 MG/ML 1 ML VIAL IV PRN (12:19)
[2020-05-10] MEDS: SODIUM CHLORIDE 0.9% 1,000 ML IV SCH (12:36)
--- NOTE | 2020-05-10 13:27 | CT ---
EXAMINATION TYPE: CT ChestAbdPelvis wo con DATE OF EXAM: 05/10/2020 INDICATION: fall, abdominal pain COMPARISON: 10/06/2017 CT DLP: 880.5 mGycm CONTRAST: Performed without Oral Contrast . No intravenous contrast. TECHNIQUE: Axial images at 5 mm thick sections. Reconstructed images in the coronal plane. Delayed images through the kidneys. FINDINGS: CT CHEST: Portion of the thyroid visualized is normal. There is a moderate right pleural effusion. There is a minimal left pleural effusion. Some compressiv e atelectasis is on the right. Minimal compressive atelectasis is likely present on the left. No enlarged mediastinal or hilar adenopathy is evident. The ascending aorta diameter at the level of the main pulmonary artery is 4.5 cm. The main pulmonary artery diameter at the bifurcation is 3.7 cm. Coronary artery calcification is present. CT ABDOMEN: Liver: Normal Spleen: Spleen appears prominent and appears somewhat lobular. Some hypodensities are present suggest ing underlying cysts. Pancreas: Atrophic with fatty infiltration. Adrenal glands: The adrenal glands are normal. Gallbladder: Decompressed Kidneys: Right kidney is absent. Left kidney appears without masses or cysts.. Delayed images were ob tained through the kidneys, which remain unremarkable. Aorta: Vascular calcification is within the aorta. Inferior vena cava: Normal. CT PELVIS: Diverticular changes are within the sigmoid colon. No acute diverticulitis is evident. The study is l ateral contrast limiting bowel evaluation. Appendix: Normal as visualized. Urinary bladder: Decompressed limiting evaluation. Bilateral hip prosthesis also limit the lower pelv is. Genitourinary structures: Limited visualization of the prostate. Calcification is present. Beam harde perla artifact from bilateral hip prostheses are present. Osseous structures: No suspicious lytic or sclerotic lesions. Facet degenerative changes are present. IMPRESSIONS: 1. Moderate right pleural effusion. 2. Lobular appearance to the spleen. There is some underlying cysts present. Underlying masses are no t excluded. This could be related to prior trauma present in 2018. 3. Diverticulosis without acute diverticulitis.
[2020-05-10 13:30] LABS: Appearance,Urine Clear (Clear); Bilirubin,Urine Negative (Negative); Blood,Urine Negative (Negative); Color,Urine Yellow; Glucose,Urine (UA) Negative (Negative); Ketones,Urine Negative (Negative); Leukocyte Esterase,Urine Negative (Negative); Nitrite,Urine Negative (Negative); Protein,Urine Trace (Negative); Specific Gravity,Urine 1.017 (1.001-1.035); Urobilinogen,Urine <2.0 mg/dL (<2.0)
--- NOTE | 2020-05-10 13:56 | P.HPIM ---
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 Patient was recently hospitalized in March for acute kidney injury, acute hypoxic respi ratory failure due to left lower lobe pneumonia and acute systolic heart failure. Patient had an ER visit on April 18 after a slip and fall from his recliner. Patient was found by his crawling on the bedroom floor with dark stool. Patient denies having any falls but patient is a poor historian. He denies having any abdominal pain. He denies pain anywhere, no headache. He apparently was complaining of abdominal pain. Has not been eating or drinking well for the last couple days. Patient was brought into [facility] emergency center for evaluation. He was afebrile, heart rate 154, blood pressure 127/83, pulse ox 97% on room air. EKG was atrial fibrillation with RVR. Patient was started on Cardizem drip and morphine one dose given. WBC 33.5, hemoglobin 12.2, platelet count 996. INR 1.3. Sodium 145, potassium 4.5, chloride 112, CO2 22, BUN 39 and creatinine 1.74, blood sugar 145. Stool for occult blood positive. Lactic acid 1.7. ProBNP 21,300. Magnesium 2.4. Total bilirubin 2.2. Chest x-ray shows moderate right pleural effusion with adjacent atelectasis and/or consolidation. CAT scan of the chest abdomen and pelvis revealed moderate right pleural effusion. Lobular appearance to the spleen. Some underlying cyst present. Underlying masses are not excluded. This could be related to prior trauma present in 2018. Diverticulosis without acute diverticulitis. CAT scan of the brain revealed hypodensity in the subcortical left occipital lobe. This could be old but an interval finding from August 2019. Differential diagnosis could include underlying mass with vasogenic edema. MRI recommended. Chronic appearing. Ventricular white matter ischemic changes with age-related atrophy. CAT scan of cervical spine revealed degenerative disc changes and foraminal stenosis. Right apical pleural fluid. Patient is seen today in the emergency c enter waiting for a cardiac stepdown bed. He remains on Cardizem drip, eliquis and aspirin on hold, consults requested with cardiology for A. fib with RVR, Dr. Platt for COPD, GI for GI bleed. REVIEW OF SYSTEMS Constitutional: No fever, no chills, no night sweats. No weight change. Reports weakness, Reports fatigue Reports lethargy. Noted daytime sleepiness. EENT: No headache. No double vision, no loss of vision. No loss of Hearing, no dizziness. No nasal drainage or congestion. No epistaxis. No sore throat. Lungs: No shortness of breath, cough, no sputum production. No wheezing. Cardiovascular: No chest pain, no lower extremity edema. No palpitations. No paroxysmal nocturnal dyspnea. No orthopnea. No lightheadedness or dizziness. No syncopal episodes. Abdominal: No abdominal pain. No nausea, vomiting. No diarrhea. No constipation. Reported bloody or tarry stools. Reported loss of appetite. Genitourinary: No dysuria, increased frequency, urgency. No urinary retention. Musculoskeletal: No myalgias. Reports muscle weakness, reports gait dysfunction, reports frequent falls. No back pain. No neck pain. Integumentary: No wounds, reports lesions. No rash or pruritus. Noted bruising. Neurologic: No aphasia. No facial droop. No change in mentation. Poor short- term memory. No head injury. No headache. No paralysis. No paresthesia. Psychiatric: No depression. No anxiety. Endocrine: No abnormal blood sugars. No weight change. SURGERY HISTORY Right kidney donor, bilateral hip arthroplasty, left trigger finger surgery, uvuloplasty, left carotid stent, left inguinal hernia repair, deviated septum repair, right cataract removal with intraocular lens implants, multiple areas of skin cancer removals, pain procedures, tonsillectomy and adenoidectomy. SOCIAL HISTORY No tobacco use, no street drug use. Patient has history of alcohol abuse. Patient resides with his who is his primary caregiver. He ambulates with a walker.. FAMILY HISTORY Father at 80 years of age from stroke. Mother at age 55 from polycystic kidney disease. Patient has one brother with multiple medical problems including diabetes. Patient has one sister who at age 60 from kidney failure due to polycystic kidney disease. Patient has one daughter with no major medical problems. Patient has total of 5 sons. 2 at premature . One while skiing from a myocardial infarction at age 32. One son is alive with no major medical problems. PHYSICAL EXAMINATION HEENT: Head is atraumatic, normocephalic, pupils were equal round reactive to light and accommodation, extraocular muscle movement were intact, sclera nonicteric, conjunctivae were., Mucous membranes of the mouth are somewhat dry. Neck: Supple, no JVD, decreased carotid upstroke bilaterally. Chest: Decreased breath sounds at the bases, few rhonchi and expiratory wheezes no chest wall tenderness no intercostal retractions. Heart: First heart sound is depressed, second heart sound is normal, irregularly irregular, there is systolic murmur 2/6 located in the left sternal border. Abdomen: Soft, nontender, nondistended, positive bowel sounds. Extremities: +1 edema right, no edema left, no calf tenderness, dorsalis pedis +1 bilaterally. Patient has a lesion on the right pretibial area that is questionable for cancer. Patient also has onychomycosis but laterally with fungal infection of the left foot. Neurologic examination: Patient is awake alert and oriented 2, cranial nerves 3-12 appear grossly intact, muscle power were 4 out of 5 in upper extremities and 3 out of 5 in bilateral lower extremities ASSESSMENT AND PLAN 1. Chronic atrial fibrillation presented with A. fib with RVR. Patient is currently on Cardizem drip. He will be resumed on metoprolol 50 mg twice daily. Cardiology consult. Patient is waiting for cardiac stepdown bed. 2. Acute GI bleed with stable hemoglobin. Eliquis and aspirin placed on hold. GI consult. Protonix 40 mg IV push twice daily. 3. Chronic hypodensity in the subcortical left occipital lobe. MRI of the brain ordered. 4. Chronic kidney disease stage IIIB. Discontinue IV fluid at this time start the patient on Lasix 40 mg IV push every 24 hours, monitor input and output and daily weight, monitor for urinary retention, nephrology consultation. Patient will be started on sodium bicarbonate 650 mg orally twice every day. Monitor his CMP. 5. Chronic systolic heart failure. Hold Lasix 40 mg twice daily. 6. Hypertension, hypertensive cardiovascular disease. Hold hydralazine 25 mg 3 times daily today. Patient resumed on Lopressor 50 mg twice daily. 7. History of multilobar pulmonary emboli. Eliquis on hold. 8. Essential thrombocytosis. We will continue with anagrelide 1 mg orally twice every day. 9. Chronic gout. Continue allopurinol 300 mg orally once every day. 10. Diabetic peripheral neuropathy. Continue gabapentin 300 mg orally twice every day. 11. Vascular dementia. Continue Aricept 5 mg orally bedtime. 12. Mixed hyperlipidemia. Continue Lipitor 20 mg orally once every day. 13. Spondylosis of the cervical spine. Continue gabapentin 300 mg orally twice every day. 14. Frequent falls. PT and OT evaluations. 15. DVT prophylaxis. JOSE LUIS hose and SCDs. 14. GI prophylaxis. Continue patient on Protonix 40 mg IV push twice daily and CODE STATUS: Full code Patient will be admitted to the hospital for a minimum of 2 night stay. DISCHARGE PLAN Most likely return home. PT and OT added.. Impression and plan of care have been directed as dictated by the signing physician. Alexandra Quiles nurse practitioner acting as scribe for signing physician. 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, UTI, gout, PAD, diverticular disease, skin cancer with removals and has more skin cancer to be removed from top of L ear, severe spondylosis of cervical spine, chonic back/cervical pain, rheumatic fever as a child History of Any Multi-Drug Resistant Organisms: None Reported Past Surgical History: Adenoidectomy, Hernia Repair, Joint Replacement, Orthopedic Surgery, Tonsillectomy Additional Past Surgical History / Comment(s): R kidney donor, kiesha hip replacement, L hand trigger finger, uvuloplasty, left carotid stent, L inguinal hernia repair, deviated septum repair, colonoscopy, R cataract removal with lens, skin cancer removals, pain procedures. Past Anesthesia/Blood Transfusion Reactions: No Reported Reaction Past Psychological History: No Psychological Hx Reported Smoking Status: Never smoker Past Alcohol Use History: Occasional Past Drug Use History: None Reported - Past Family History Father Family Medical History: CVA/TIA Additional Family Medical History / Comment(s): Father of a CVA at the age of 80yrs. Mother Family Medical History: No Reported History Additional Family Medical History / Comment(s): Mother at age 55 from polycystic kidney disease. Brother(s) Additional Family Medical History / Comment(s): Patient has 1 brother with multiple medical problems including diabetes. Sister(s) Family Medical History: Renal Disease Additional Family Medical History / Comment(s): Patient has one sister that at age 60 from kidney failure due to polycystic kidney disease. Daughter(s) Family Medical History: No Reported History Additional Family Medical History / Comment(s): Patient has one daughter with no major medical problems. Son(s) Additional Family Medical History / Comment(s): Patient has 5 sons. 2 at premature . One while skiing from a myocardial infarction at age 32. One son is alive with no major medical problems. Medications and Allergies Home Medications Medication Instructions Recorded Confirmed Type EPINEPHrine (Auto Inject) [Epipen] 0.3 mg IM ONCE PRN 01/06/17 05/10/20 History Gabapentin [Neurontin] 300 mg PO BID 06/13/17 05/10/20 History Pantoprazole Sodium [Protonix] 40 mg PO AC-[id number] 08/04/17 05/10/20 History Atorvastatin Calcium [Lipitor] 20 mg PO DAILY 08/14/19 05/10/20 History Apixaban [Eliquis] 2.5 mg PO BID #60 tablet 11/11/19 05/10/20 Rx Anagrelide HCl 1 mg PO DAILY 02/07/20 05/10/20 History Linagliptin [Tradjenta] 5 mg PO DAILY 03/31/20 05/10/20 History Metoprolol Tartrate [Lopressor] 50 mg PO BID 03/31/20 05/10/20 History Sodium Bicarbonate Tab 650 mg PO TID #90 tab 04/05/20 05/10/20 Rx Donepezil [Aricept] 5 mg PO HS 04/14/20 05/10/20 History Furosemide [Lasix] 40 mg PO BID@0900,1600 04/14/20 05/10/20 History Allopurinol [Zyloprim] 300 mg PO DAILY 04/18/20 05/10/20 History hydrALAZINE HCL [Apresoline] 25 mg PO TID 04/18/20 05/10/20 History Allergies Allergy/AdvReac Type Severity Reaction Status Date / Time venom-honey bee Allergy Anaphylaxis Verified 05/10/20 12:13 [bee venom (honey bee)] rivastigmine AdvReac Rash/Hives Verified 05/10/20 12:13 Physical Exam Vitals: Vital Signs Temp Pulse Resp BP Pulse Ox 05/10/20 11:19 97.9 F 135 H 18 122/73 94 L 05/10/20 10:56 134 H 18 106/78 96 05/10/20 09:30 98.6 F 154 H 20 127/83 97 Intake and Output 05/09/20 05/10/20 05/10/20 22:59 06:59 14:59 Intake Total 2.75 Balance 2.75 Intake: Intake, IV Titration 2.75 Amount Diltiazem 125 mg In 2.75 Sodium Chloride 0.9% 100 ml @ 5 MG/HR 5 mls/hr IV .Q24H [facility] Rx#:[id number] Other: Weight 90.718 kg Results CBC & Chem 7: 05/11/20 07:12 05/11/20 07:12 Labs: Abnormal Lab Results - Last 24 Hours (Table) 05/10/20 05/10/20 05/10/20 Range/Units 09:55 09:55 09:55 WBC 33.5 H (3.8-10.6) k/uL Hgb 12.2 L (13.0-17.5) gm/dL MCHC 29.6 L (31.0-37.0) g/dL RDW 23.4 H (11.5-15.5) % Plt Count 996 H (150-450) k/uL Neutrophils # (Manual) 28.10 H (1.3-7.7) k/uL Monocytes # (Manual) 2.01 H (0-1.0) k/uL Basophils # (Manual) 0.34 H (0-0.2) k/uL Metamyelocytes # (Man) 0.34 H (0) k/uL Myelocytes # (Manual) 0.67 H (0) k/uL PT 13.6 H (9.0-12.0) sec INR 1.3 H (<1.2) Chloride 112 H (98-107) mmol/L BUN 39 H (9-20) mg/dL Creatinine 1.74 H (0.66-1.25) mg/dL Glucose 145 H (74-99) mg/dL Magnesium 2.4 H (1.6-2.3) mg/dL Total Bilirubin 2.2 H (0.2-1.3) mg/dL Alkaline Phosphatase 142 H (38-126) U/L
[2020-05-10 16:09] LABS: Anisocytosis Moderate; HGB 10.3 gm/dL (13.0-17.5); Hypochromasia Marked; MCH 27.5 pg (25.0-35.0); MCHC 30.3 g/dL (31.0-37.0); MCV 90.9 fL (80.0-100.0); Macrocytosis Slight; Mean Platelet Volume 9.3; Microcytosis Slight; Platelet Count 890 k/uL (150-450); Poikilocytosis Slight; RBC 3.74 m/uL (4.30-5.90); RDW 23.4 % (11.5-15.5)
[2020-05-10 16:25] LABS: Band Neutrophils % 1 %; Lymphocytes # (M) 0.28 k/uL (1.0-4.8); Metamyelocytes # (M) 0.84 k/uL (0); Metamyelocytes % 3 %; Monocytes # (M) 1.68 k/uL (0-1.0); Neutrophils % (M) 90 %; Nucleated Red Blood Cells 1 /100 WBC (0-0); Ovalocytes Present; Polychromasia Present; Total Cells Counted 200
[2020-05-10] MEDS: SODIUM BICARBONATE TAB 650 MG TAB PO SCH ×2 (18:24→21:17)
[2020-05-10] MEDS ORDERED: PANTOPRAZOLE 40 MG/10 ML VIAL IVP SCH (21:00)
[2020-05-10] MEDS: GABAPENTIN 300 MG CAP PO SCH (21:17)
[2020-05-10] MEDS: PANTOPRAZOLE 40 MG/10 ML VIAL IVP SCH (21:17)
[2020-05-10] MEDS: DONEPEZIL 5 MG TAB PO SCH (21:17)
[2020-05-10] MEDS: METOPROLOL TARTRATE 50 MG TAB PO SCH (21:17)
--- NOTE | 2020-05-10 22:17 | CONS ---
CONSULTATION DATE OF DICTATION: 05/10/2020 REASON FOR CONSULTATION: Black tarry stools and diarrhea. HISTORY OF PRESENT ILLNESS: The patient is an 84-year-old pleasant white male with history of hypertension, hyperlipidemia, history of chronic kidney disease, essential thrombocytosis, atrial fibrillation, currently on Eliquis, who was admitted to the hospital with black stool for the last one week duration. The patient is a poor historian. His states that he has been having some vague abdominal pain and black tarry stools, about 5-6 every day, for the last one week. He has atrial fibrillation and he has been on Eliquis. He stopped it yesterday morning. He describes the pain mostly in the epigastric and periumbilical area. Has some nausea but no emesis. When he came to the ER he was noted to have a hemoglobin of 12.4 g/dL. We are consulted for possible GI bleed. On review of his records, the patient had an upper endoscopy done in April of 2016 that revealed a small duodenal ulcer and antral erosive gastritis. He had another upper endoscopy done in October of [address] Enriquez for NG tube placement for bowel obstruction. PAST MEDICAL HISTORY: Significant for hypertension, hyperlipidemia, atrial fibrillation, on Eliquis, gastroesophageal reflux disease, chronic kidney disease, essential thrombocytosis, history of congestive heart failure, mild dementia and rheumatoid arthritis. MEDICATIONS: Medications at home include Apresoline, zyloprim, Lasix, Aricept, aspirin, metoprolol, Tradjenta, anagrelide, atorvastatin, Protonix, Neurontin and EpiPen. PAST SURGICAL HISTORY: Right kidney donor, bilateral hip replacement, left hand surgery, bilateral inguinal hernia repair, left carotid stent placement, right cataract surgery. FAMILY HISTORY: Father had CVA and TIA in the past. Mother with polycystic kidney disease. REVIEW OF SYSTEMS: CARDIOPULMONARY: He does have some chest pain but no shortness of breath. GENITOURINARY: No dysuria or hematuria. MUSCULOSKELETAL: Unremarkable. SKIN: Unremarkable. ENDOCRINE: Unremarkable. PSYCHIATRIC: Unremarkable. NEUROLOGY: Mild dementia. HEMATOLOGY/ONCOLOGY: Essential thrombocytosis; follows with Dr. Puentes. CONSTITUTIONAL: No recent weight loss. No fever, chills, night sweats. PHYSICAL EXAMINATION: He appears comfortable. No apparent distress. Vital signs are stable. Blood pressure is 130/86, pulse rate 90, temperature 97.6. HEENT examination unremarkable. Conjunctivae pink. Sclerae anicteric. Oral cavity no lesions. NECK: No JVD or lymph node enlargement. CHEST: Clear to auscultation. HEART: Regular rate and rhythm. ABDOMEN: Soft. There was mild tenderness in the epigastric area. Bowel sounds are positive. No organomegaly. EXTREMITIES: No pedal edema. SKIN: No rashes. NEUROLOGIC: Alert and oriented x3. No focal deficits. LABS: WBC 33.5, hemoglobin 12.2, platelets 996. Repeat hemoglobin was 10.3. INR 1.3. BUN 39, creatinine 1.74, T-bilirubin 2.2. AST and ALT are normal. Alkaline phosphatase is 142. Stool occult blood was positive. IMPRESSION: 1. Black tarry stools for the last one week duration. The patient is having about 5-6 loose black bowel movements daily. Hemoglobin dropped from 12.2 to 10.5 g/dL. Stool Hemoccult was positive. Possibility of an upper GI source of bleeding needs to be considered. Patient is on Eliquis for atrial fibrillation, which is currently on hold since yesterday morning. He has prior history of peptic ulcer disease. Last EGD in 2017 showed a duodenal ulcer. Patient denies any recent NSAID use. 2. Atrial fibrillation, on Eliquis, currently on hold. 3. History of chronic kidney disease, stage 3. 4. History of hypertension and hypertensive cardiovascular disease. 5. History of essential thrombocytosis with elevated white count. Patient follows with Dr. Puentes, presently on anagrelide. RECOMMENDATIONS: 1. Continue to hold Eliquis. 2. Protonix 40 mg daily. 3. Monitor CBC daily. 4. Will proceed with an upper endoscopy tomorrow. Discussed with the patient as well as his risks, benefits and complications of the procedure, and they are agreeable to it. Thank you for this consultation. MMODL / IJN: [id number] /
[2020-05-11] MEDS: SODIUM CHLORIDE 0.9% 1,000 ML IV SCH ×2 (04:11→17:56)
[2020-05-11] MEDS: DILTIAZEM 125 MG in SODIUM CHLORIDE 0.9% 100 ML IV SCH (04:18)
[2020-05-11 07:45] LABS: Anisocytosis Moderate; HCT 31.6 % (39.0-53.0); HGB 9.5 gm/dL (13.0-17.5); Hypochromasia Marked; MCH 27.2 pg (25.0-35.0); MCHC 30.2 g/dL (31.0-37.0); MCV 90.3 fL (80.0-100.0); Macrocytosis Slight; Mean Platelet Volume 9.2; Microcytosis Slight; Platelet Count 779 k/uL (150-450); Poikilocytosis Slight; RDW 23.2 % (11.5-15.5); WBC 26.1 k/uL (3.8-10.6)
[2020-05-11 08:01] LABS: Albumin 2.5 g/dL (3.5-5.0); Calcium 8.1 mg/dL (8.4-10.2); Potassium 4.6 mmol/L (3.5-5.1); Total Bilirubin 1.4 mg/dL (0.2-1.3); Total Protein 4.8 g/dL (6.3-8.2)
[2020-05-11] MEDS ORDERED: PANTOPRAZOLE 40 MG/10 ML VIAL IVP SCH (09:00)
--- NOTE | 2020-05-11 09:31 | P.CRDCN ---
History of Present Illness History of present illness: HISTORY OF PRESENTING ILLNESS This is a pleasant 84-year-old male past medical history significant for chronic persistent atrial fibrillation, carotid stenosis with stent placement, hypertension, dyslipidemia, chronic systolic heart failure, chronic kidney disease, TIA, history of PE and dementia. She recalls that he follows with a traffic chief but is not able to remember the name or location. Previous documentation indicates he follows with a traffic chief out of town. We have been asked to see in consultation for atrial fibrillation. He is a poor historian, information is obtained from the medical record and nursing staff. His apparently found him crawling around on the floor complaining of abdominal pain with evidence of dark stools. He has been seen in consultation by GI service and is scheduled to undergo an EGD today. He is seen and examined sitting up in bed in no acute distress. He has no symptoms of chest discomfort, shortness of breath, dizziness or palpitations. EKG on arrival revealed atrial fibrillation with rapid ventricular rate. He was started on Cardizem infusion. Eliquis is currently on hold pending EGD. Chest x-ray reveals a right pleural effusion. CT of the abdomen and pelvis reveals a globular looking spleen with some underly ing cysts present and diverticulosis without acute diverticulitis. Laboratory data reviewed, WBC 33.5 on admission repeat today 26.1, hemoglobin on admission was 12.2 repeat today 9.5, platelets 779, sodium 143, potassium 4.6, creatinine 1.67, magnesium 2.4, NT proBNP 21,300. Current daily cardiac medications include hydralazine 25 mg 3 times a day, Lopressor 50 mg twice a day, Lasix 40 mg twice a day, atorvastatin 20 mg daily, aspirin 81 mg daily and Eliquis 2.5 mg daily. Most recent echocardiogram obtained January 2020 revealed impaired LV systolic function with ejection fraction 40-45%, mild MR, mild TR and mild pulmonary hypertension with an RVSP of 42 mmHg. REVIEW OF SYSTEMS At the time of my exam: CONSTITUTIONAL: Denies fever or chills. CARDIOVASCULAR: Denies chest pain, shortness of breath, orthopnea, PND or palpitations. RESPIRATORY: Denies cough. GASTROINTESTINAL: Denies abdominal pain, diarrhea, constipation, nausea or vomiting. MUSCULOSKELETAL: Denies myalgias. NEUROLOGIC: Denies numbness, tingling, headacbe or weakness. ENDOCRINE: Denies fatigue, weight change, polydipsia or polyurina. GENITOURINARY: Denies burning, hematuria or urgency with micturation. HEMATOLOGIC: Denies history of anemia or bleeding. PHYSICAL EXAMINATION Blood pressure 96/58 heart rate 95 afebrile and maintaining oxygen saturation on nasal cannula. CONSTITUTIONAL: No apparent distress. HEENT: Head is normocephalic. Pupils are equal, round. Sclerae anicteric. Mucous membranes of the mouth are moist. No JVD. No carotid bruit. CHEST EXAMINATION: Lungs are clear to auscultation. No chest wall tenderness is noted on palpation or with deep breathing. HEART EXAMINATION: Irregular rate and rhythm. S1, S2 heard. Systolic ejection murmur at the base, no gallops or rub. ABDOMEN: Soft, nontender. Positive bowel sounds. EXTREMITIES: 1+ peripheral pulses, trace bilateral lower extremity edema and no calf tenderness. NEUROLOGIC EXAMINATION: Patient is awake and alert, pleasantly confused surrounding time location and circumstances of admission. ASSESSMENT Acute GI bleeding Chronic persistent atrial fibrillation with rapid ventricular rate Hypertension Dyslipidemia Chronic systolic heart failure Chronic kidney disease History of PE TIA Peripheral vascular disease Dementia PLAN Continue IV cardizem infusion while he is NPO. Hold eliquis pending EGD and GI recommendations. Discontinue aspirin completely. Further recommendations to follow based on clinical course. Thank you kindly for this consultation. Nurse Practitioner note has been reviewed, I agree with a documented findings and plan of care. Patient was seen and examined. 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, UTI, gout, PAD, diverticular disease, skin cancer with removals and has more skin cancer to be removed from top of L ear, severe spondylosis of cervical spine, chonic back/cervical pain, rheumatic fever as a child History of Any Multi-Drug Resistant Organisms: None Reported Past Surgical History: Adenoidectomy, Hernia Repair, Joint Replacement, Orthopedic Surgery, Tonsillectomy Additional Past Surgical History / Comment(s): R kidney donor, kiesha hip replacement, L hand trigger finger, uvuloplasty, left carotid stent, L inguinal hernia repair, deviated septum repair, colonoscopy, R cataract removal with lens, skin cancer removals, pain procedures. Past Anesthesia/Blood Transfusion Reactions: No Reported Reaction Past Psychological History: No Psychological Hx Reported Additional Psychological History / Comment(s): Pt resides with his spouse who is his caregiver. Pt uses a walker to ambulate. He is able to wash himself but needs assistance with dressing at times. He is oriented to person, sometimes he thinks his is his sister and will sometimes think he is still living in [place] or on the farm. He no longer drives, his spouse drives. Spouse still works at the [employer], she takes pt with her into work. Pt is retired. Smoking Status: Never smoker Past Alcohol Use History: Occasional Additional Past Alcohol Use History / Comment(s): Pt no longer drinks alcohol. Past Drug Use History: None Reported - Past Family History Father Family Medical History: CVA/TIA Additional Family Medical History / Comment(s): Father of a CVA at the age of 80yrs. Mother Family Medical History: No Reported History Additional Family Medical History / Comment(s): Mother at age 55 from polycystic kidney disease. Brother(s) Additional Family Medical History / Comment(s): Patient has 1 brother with multiple medical problems including diabetes. Sister(s) Family Medical History: Renal Disease Additional Family Medical History / Comment(s): Patient has one sister that at age 60 from kidney failure due to polycystic kidney disease. Daughter(s) Family Medical History: No Reported History Additional Family Medical History / Comment(s): Patient has one daughter with no major medical problems. Son(s) Additional Family Medical History / Comment(s): Patient has 5 sons. 2 at premature . One while skiing from a myocardial infarction at age 32. One son is alive with no major medical problems. Medications and Allergies Home Medications Medication Instructions Recorded Confirmed Type EPINEPHrine (Auto Inject) [Epipen] 0.3 mg IM ONCE PRN 01/06/17 05/10/20 History Gabapentin [Neurontin] 300 mg PO BID 06/13/17 05/10/20 History Pantoprazole Sodium [Protonix] 40 mg PO [id number] 08/04/17 05/10/20 History Atorvastatin Calcium [Lipitor] 20 mg PO DAILY 08/14/19 05/10/20 History Apixaban [Eliquis] 2.5 mg PO BID #60 tablet 11/11/19 05/10/20 Rx Anagrelide HCl 1 mg PO DAILY 02/07/20 05/10/20 History Linagliptin [Tradjenta] 5 mg PO DAILY 03/31/20 05/10/20 History Metoprolol Tartrate [Lopressor] 50 mg PO BID 03/31/20 05/10/20 History Sodium Bicarbonate Tab 650 mg PO TID #90 tab 04/05/20 05/10/20 Rx Aspirin [Adult Low Dose Aspirin EC] 81 mg PO DAILY 04/14/20 05/10/20 History Donepezil [Aricept] 5 mg PO HS 04/14/20 05/10/20 History Furosemide [Lasix] 40 mg PO BID@0900,1600 04/14/20 05/10/20 History Allopurinol [Zyloprim] 300 mg PO DAILY 04/18/20 05/10/20 History hydrALAZINE HCL [Apresoline] 25 mg PO TID 04/18/20 05/10/20 History Allergies Allergy/AdvReac Type Severity Reaction Status Date / Time venom-honey bee Allergy Anaphylaxis Verified 05/10/20 12:13 [bee venom (honey bee)] rivastigmine AdvReac Rash/Hives Verified 05/10/20 12:13 Physical Exam Vitals: Vital Signs Temp Pulse Pulse Resp BP BP Pulse Ox 05/11/20 04:00 97.6 F 83 16 89/57 97 05/11/20 00:00 98.0 F 96 16 106/55 98 05/10/20 20:00 97.4 F L 104 H 18 98/57 90 L 05/10/20 14:44 97.6 F 90 16 104/53 93 L 05/10/20 14:38 97.5 F L 97 18 118/59 96 05/10/20 12:33 116 H 18 114/77 100 05/10/20 11:19 97.9 F 135 H 18 122/73 94 L 05/10/20 10:56 134 H 18 106/78 96 05/10/20 09:30 98.6 F 154 H 20 127/83 97 Intake and Output 05/10/20 05/11/20 05/11/20 22:59 06:59 14:59 Intake Total 586.333 35.917 Balance 586.333 35.917 Intake: Intake, IV Titration 586.333 35.917 Amount Diltiazem 125 mg In 86.333 35.917 Sodium Chloride 0.9% 100 ml @ 5 MG/HR 5 mls/hr IV .Q24H [facility] Rx#:[id number] Sodium Chloride 0.9% 1, 500 000 ml @ 75 mls/hr IV . [id number] [facility] Rx#:[id number] Other: Voiding Method Diaper Diaper Incontinent Incontinent # Voids 1 1 Weight 90.718 kg 107 kg Results 05/11/20 07:12 05/11/20 07:12 Cardiac Enzymes 05/10/20 Range/Units 09:55 AST 23 (17-59) U/L Coagulation 05/10/20 Range/Units 09:55 PT 13.6 H (9.0-12.0) sec APTT 25.6 (22.0-30.0) sec CBC 05/10/20 05/10/20 Range/Units 09:55 15:41 WBC 33.5 H 28.0 H (3.8-10.6) k/uL RBC 4.60 3.74 L (4.30-5.90) m/uL Hgb 12.2 L 10.3 L (13.0-17.5) gm/dL Hct 41.1 34.0 L (39.0-53.0) % Plt Count 996 H 890 H (150-450) k/uL Comprehensive Metabolic Panel 05/10/20 Range/Units 09:55 Sodium 145 (137-145) mmol/L Potassium 4.5 (3.5-5.1) mmol/L Chloride 112 H (98-107) mmol/L Carbon Dioxide 22 (22-30) mmol/L BUN 39 H (9-20) mg/dL Creatinine 1.74 H (0.66-1.25) mg/dL Glucose 145 H (74-99) mg/dL Calcium 9.5 (8.4-10.2) mg/dL AST 23 (17-59) U/L ALT 9 (4-49) U/L Alkaline Phosphatase 142 H (38-126) U/L Total Protein 6.7 (6.3-8.2) g/dL Albumin 3.7 (3.5-5.0) g/dL Current Medications Generic Name Dose Route Start Last Admin Trade Name Freq PRN Reason Stop Dose Admin Acetaminophen 650 mg 05/10/20 12:19 Acetaminophen Tab 325 Mg Tab PO Q6HR PRN Mild Pain or Fever > 100.5 Allopurinol 300 mg 05/11/20 09:00 Allopurinol 300 Mg Tab PO DAILY [facility] Atorvastatin Calcium 20 mg 05/11/20 09:00 Atorvastatin 20 Mg Tab PO DAILY JS Donepezil HCl 5 mg 05/10/20 21:00 05/10/20 21:17 Donepezil 5 Mg Tab PO 5 mg HS JS Administration Gabapentin 300 mg 05/10/20 21:00 05/10/20 21:17 Gabapentin 300 Mg Cap PO 300 mg BID JS Administration Diltiazem HCl 125 mg/ Sodium 125 mls @ 5 mls/hr 05/10/20 10:15 05/11/20 04:18 Chloride IV 5 mg/hr .Q24H JS 5 mls/hr Administration 5 MG/HR Sodium Chloride 1,000 mls @ 75 mls/hr 05/10/20 11:30 05/11/20 04:11 Saline 0.9% IV 75 mls/hr .[id number] JS Administration Linagliptin 5 mg 05/11/20 09:00 Linagliptin 5 Mg Tablet PO DAILY JS Metoprolol Tartrate 50 mg 05/10/20 21:00 05/10/20 21:17 Metoprolol Tartrate 50 Mg Tab PO 50 mg BID JS Administration Morphine Sulfate 4 mg 05/10/20 12:19 Morphine Sulfate 4 Mg/Ml Syringe IV Q4HR PRN Severe Pain Naloxone HCl 0.2 mg 05/10/20 12:19 Naloxone 0.4 Mg/Ml 1 Ml Vial IV Q2M PRN Opioid Reversal Non-Formulary Medication 1 mg 05/11/20 09:00 Anagrelide Hcl [Anagrelide Hcl] PO DAILY [facility] Pantoprazole Sodium 40 mg 05/10/20 21:00 05/10/20 21:17 Pantoprazole 40 Mg/10 Ml Vial IVP 40 mg BID JS Administration Sodium Bicarbonate 650 mg 05/10/20 16:00 05/10/20 21:17 Sodium Bicarbonate Tab 650 Mg Tab PO 650 mg TID JS Administration Intake and Output 05/10/20 05/11/20 05/11/20 22:59 06:59 14:59 Intake Total 586.333 35.917 Balance 586.333 35.917 Intake: Intake, IV Titration 586.333 35.917 Amount Diltiazem 125 mg In 86.333 35.917 Sodium Chloride 0.9% 100 ml @ 5 MG/HR 5 mls/hr IV .Q24H [facility] Rx#:[id number] Sodium Chloride 0.9% 1, 500 000 ml @ 75 mls/hr IV . [id number] [facility] Rx#:[id number] Other: Voiding Method Diaper Diaper Incontinent Incontinent # Voids 1 1 Weight 90.718 kg 107 kg 05/10/20 15:41 05/10/20 09:55
--- NOTE | 2020-05-11 10:36 | MR ---
EXAMINATION TYPE: MR brain wo/w con DATE OF EXAM: 05/11/2020 COMPARISON: Prior brain MRI 01/26/2019, CT brain 05/10/2020 HISTORY: Hypodensity subcortical left occipital lobe TECHNIQUE: Multiplanar, multisequence images of the brain and brainstem is performed without and with IV contras t, utilizing 10 mL intravenous Gadavist . FINDINGS: Diffusion weighted images demonstrate no evidence of a recent infarct or other diffusion ab normality. There is no extra-axial fluid collection or significant interval change in white matter s ignal abnormality. Encephalomalacia present in left frontal lobe is again noted, periventricular, pe ricallosal and subcortical confluent and scattered hyperintensities on inversion recovery T2-weighted sequences are again seen similar to prior exam. The ventricular system and cisternal spaces are norm al in size and appearance. The brain volume is age appropriate, cortical atrophy is again noted. Midline structures demonstrate normal morphology. The craniocervical junction appears within normal limits. Post contrast images demonstrate no abnormal enhancement. The dural venous sinuses appear pa tent. The visualized sinuses are remarkable for mucoperiosteal thickening in the maxillary sinuses, e thmoid air cells and the globes are intact. Bilateral mastoid air cells show inflammatory changes IMPRESSION: No acute abnormality. Age-related changes of atrophy and chronic small vessel ischemia
[2020-05-11 11:06] VITALS: BMI 34.8
[2020-05-11] MEDS ORDERED: IV FLUID CONTINUATION 1,000 ML IV ONE (13:03)
[2020-05-11] MEDS ORDERED: PROPOFOL 10 MG/ML 20 ML VIAL IV ONE (13:05)
[2020-05-11] MEDS ORDERED: SODIUM CHLORIDE 0.9% 500 ML 500 ML IV ONE (13:08)
--- NOTE | 2020-05-11 13:32 | P.PCN ---
Date of Procedure: 05/11/20 Procedure(s) Performed: BRIEF HISTORY: Patient is a 84-year-old, pleasant, white male admitted hospital with black tarry stools for the last 1 week duration. His initial hemoglobin was 12 and dropped to 9 g/dL. His been on a Eliquis is currently on hold for the last 2 days. He scheduled for an upper endoscopy to evaluate further.. PROCEDURE PERFORMED: Esophagogastroduodenoscopy with Endo Clip placement and biopsy. PREOPERATIVE DIAGNOSIS: Black tarry stools of 1 week duration. IV sedation per anesthesia. PROCEDURE: After informed consent was obtained, the patient was brought into the endoscopy unit. IV sedation was administered by Anesthesia under continuous monitoring. Initially the Olympus GIF-140 video endoscope was inserted into the mouth. Esophagus intubated without any difficulty. It was gradually advanced into the stomach and duodenum and carefully examined. The second part of the duodenum appeared normal. In the bulb of the duodenum there were 3 duodenal ulcers identified one of which had a visible vessel with oozing but no active bleeding. 2 endoclips were placed on the visible vessel with good hemostasis. The scope at this time was withdrawn to the stomach, adequately insufflated with air, and upon careful examination, mucosa of the antrum, had mild gastritis and biopsies were done from this area. The body, cardia and the fundus appeared normal. The scope was then withdrawn into the esophagus. The GE junction was located at 39 cm from the incisors. There were 2 superficial erosions at the GE junction consistent with LA grade B reflux esophagitis. Rest of esophagus appeared normal and the patient tolerated the procedure well. IMPRESSION: 1. Multiple duodenal ulcers in the duodenal bulb, one of which had a visible vessel with some oozing status post Endo Clip placement with good hemostasis. 2. Mild antral gastritis and reflux esophagitis. RECOMMENDATIONS: The findings of this examination were discussed with the patient . Continue with Protonix 40 mg twice daily. Advance diet as tolerated..
[2020-05-11] MEDS: GABAPENTIN 300 MG CAP PO SCH ×3 (15:30→22:09)
[2020-05-11] MEDS: LINAGLIPTIN 5 MG TABLET PO SCH (15:30)
[2020-05-11] MEDS: ATORVASTATIN 20 MG TAB PO SCH (15:30)
[2020-05-11] MEDS: METOPROLOL TARTRATE 50 MG TAB PO SCH (15:30)
[2020-05-11] MEDS: allopurinoL 300 MG TAB PO SCH (15:30)
[2020-05-11] MEDS: SODIUM BICARBONATE TAB 650 MG TAB PO SCH ×4 (15:30→22:09)
[2020-05-11] MEDS: ANAGRELIDE HCL 1 MG PO SCH (15:31)
[2020-05-11] MEDS: PANTOPRAZOLE 40 MG/10 ML VIAL IVP SCH ×2 (15:31→21:06)
--- NOTE | 2020-05-11 16:03 | P.PN ---
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 Patient was recently hospitalized in March for acute kidney injury, acute hypoxic respiratory failure due to left lower lobe pneumonia and acute systolic heart failure. Patient had an ER visit on April 18 after a slip and fall from his recliner. Patient was found by his crawling on the bedroom floor with dark stool. Patient denies having any falls but patient is a poor historian. He denies having any abdominal pain. He denies pain anywhere, no headache. He apparently was complaining of abdominal pain. Has not been eating or drinking well for the last couple days. Patient was brought into [facility] emergency center for evaluation. He was afebrile, heart rate 154, blood pressure 127/83, pulse ox 97% on room air. EKG was atrial fibrillation with RVR. Patient was started on Cardizem drip and morphine one dose given. WBC 33.5, hemoglobin 12.2, platelet count 996. INR 1.3. Sodium 145, potassium 4.5, chloride 112, CO2 22, BUN 39 and creatinine 1.74, blood sugar 145. Stool for occult blood positive. Lactic acid 1.7. ProBNP 21,300. Magnesium 2.4. Total bilirubin 2.2. Chest x-ray shows moderate right pleural effusion with adjacent atelectasis and/or consolidation. CAT scan of the chest abdomen and pelvis revealed moderate right pleural effusion. Lobular appearance to the spleen. Some underlying cyst present. Underlying masses are not excluded. This could be related to prior trauma present in 2018. Diverticulosis without acute diverticulitis. CAT scan of the brain revealed hypodensity in the subcortical left occipital lobe. This could be old but an interval finding from August 2019. Differential diagnosis could include underlying mass with vasogenic edema. MRI recommended. Chronic appearing. Ventricular white matter ischemic changes with age-related atrophy. CAT scan of cervical spine revealed degenerative disc changes and foraminal stenosis. Right apical pleural fluid. Patient is seen today in the emergency center waiting for a cardiac stepdown bed. He remains on Cardizem drip, eliquis and aspirin on hold, consults requested with cardiology for A. fib with RVR, Dr. Platt for COPD, GI for GI bleed. 05/11: Patient has been seen by cardiology with plan to continue IV Cardizem while patient is nothing by mouth status. Eliquis remains on hold. Patient has been seen by GI with plan for EGD today. EGD reveals multiple duodenal ulcers and duodenal bulb , one of which had a visible vessel with some oozing status post Endo Clip placement with good stasis. Mild antral gastritis and reflux esophagitis. Plan is to continue Protonix 40 mg twice daily and advance diet as tolerated.repeat hemoglobin is 9.5. BUN 35 and creatinine 1.67, CO2 19. Total bilirubin 1.4, LFT normal. MRI of the brain revealed no acute abnormality. Age related changes of atrophy and chronic small vessel ischemia. Patient has been evaluated by therapies and recommend 24 hour care or subacute rehab. Blood pressure has remained on the low side 96/58, he has been afebrile, heart rate in the 80s and 90s, pulse ox 96% on 3 L nasal cannula. 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 Patient's mental status is much improved from yesterday. No diarrhea, no stools. Patient's is planning for patient to return home with homecare. REVIEW OF SYSTEMS Constitutional: No fever, no chills, no night sweats. No weight change. Reports weakness, Reports fatigue Reports lethargy. Noted daytime sleepiness. EENT: No headache. No double vision, no loss of vision. No loss of Hearing, n o dizziness. No nasal drainage or congestion. No epistaxis. No sore throat. Lungs: No shortness of breath, cough, no sputum production. No wheezing. Cardiovascular: No chest pain, no lower extremity edema. No palpitations. No paroxysmal nocturnal dyspnea. No orthopnea. No lightheadedness or dizziness. No syncopal episodes. Abdominal: No abdominal pain. No nausea, vomiting. No diarrhea. No constipation. No bloody or tarry stools. Reported loss of appetite. Genitourinary: No dysuria, increased frequency, urgency. No urinary retention. Musculoskeletal: No myalgias. Reports muscle weakness, reports gait dysfunction, reports frequent falls. No back pain. No neck pain. Integumentary: No wounds, reports lesions. No rash or pruritus. Noted bruising. Neurologic: No aphasia. No facial droop. No change in mentation-chronic. Poor short-term memory. No head injury. No headache. No paralysis. No paresthesia. Psychiatric: No depression. No anxiety. Endocrine: No abnormal blood sugars. No weight change. PHYSICAL EXAMINATION HEENT: Head is atraumatic, normocephalic, pupils were equal round reactive to light and accommodation, extraocular muscle movement were intact, sclera nonicteric, conjunctivae were., Mucous membranes of the mouth are somewhat dry. Neck: Supple, no JVD, decreased carotid upstroke bilaterally. Chest: Decreased breath sounds at the bases, few rhonchi and expiratory wheezes no chest wall tenderness no intercostal retractions. Heart: First heart sound is depressed, second heart sound is normal, irregularly irregular, there is systolic murmur 2/6 located in the left sternal border. Abdomen: Soft, nontender, nondistended, positive bowel sounds. Extremities: +1 edema right, no edema left, no calf tenderness, dorsalis pedis +1 bilaterally. Patient has a lesion on the right pretibial area that is questionable for cancer. Patient also has onychomycosis but laterally with fungal infection of the left foot. Neurologic examination: Patient is awake alert and oriented 2, cranial nerves 3-12 appear grossly intact, muscle power were 4 out of 5 in upper extremities and 3 out of 5 in bilateral lower extremities ASSESSMENT AND PLAN 1. Chronic atrial fibrillation presented with A. fib with RVR. Continue Cardizem drip. He will be resumed on metoprolol 50 mg twice daily. Cardiology consult appreciated. Patient is waiting for cardiac stepdown bed. 2. Acute GI bleed secondary to duodenal ulcer status post Endoclip with acute blood loss anemia but not requiring transfusion. Eliquis and aspirin placed on hold. GI consult. Protonix 40 mg IV push twice daily. EGD as above. 3. Chronic hypodensity in the subcortical left occipital lobe. MRI of the brain as above. 4. Metabolic encephalopathy secondary to GIB, back to baseline. 5. Chronic kidney disease stage IIIB. 6. Chronic systolic heart failure. Hold Lasix 40 mg twice daily. 7. Hypertension, hypertensive cardiovascular disease. Hold hydralazine 25 mg 3 times daily today. Patient resumed on Lopressor 50 mg twice daily. 8. History of multilobar pulmonary emboli. Eliquis on hold. 9. Essential thrombocytosis. We will continue with anagrelide 1 mg orally twice every day. 10. Chronic gout. Continue allopurinol 300 mg orally once every day. 11. Diabetic peripheral neuropathy. Continue gabapentin 300 mg orally twice every day. 12. Vascular dementia. Continue Aricept 5 mg orally bedtime. 13. Mixed hyperlipidemia. Continue Lipitor 20 mg orally once every day. 14. Spondylosis of the cervical spine. Continue gabapentin 300 mg orally twice every day. 15. Frequent falls. PT and OT evaluations. 16. DVT prophylaxis. JOSE LUIS hose and SCDs. 17. GI prophylaxis. Continue patient on Protonix 40 mg IV push twice daily and CODE STATUS: NO code DISCHARGE PLAN Home with [facility]. PT and OT recomment subacute rehab/24 hour supervision. Probable discharge 24-48 hours. Impression and plan of care have been directed as dictated by the signing physician. Alexandra Quiles nurse practitioner acting as scribe for signing physician. Objective - Vital Signs Vital signs: Vital Signs Temp 96.8 F L 05/11/20 07:58 Pulse 95 05/11/20 07:58 Resp 18 05/11/20 07:58 BP 96/58 05/11/20 07:58 Pulse Ox 96 05/11/20 07:58 Intake & Output 05/10/20 05/11/20 05/11/20 18:59 06:59 18:59 Intake Total 502.75 122.250 Balance 502.75 122.250 Weight 90.718 kg 107 kg 107 kg Intake: Intake, IV Titration 502.75 122.250 Amount Diltiazem 125 mg In 2.75 122.250 Sodium Chloride 0.9% 100 ml @ 5 MG/HR 5 mls/hr IV .Q24H [facility] Rx#:[id number] Sodium Chloride 0.9% 1, 500 000 ml @ 75 mls/hr IV . [id number] [facility] Rx#:[id number] Other: Voiding Method Diaper Incontinent # Voids 1 1 - Labs CBC & Chem 7: 05/11/20 07:12 05/11/20 07:12 Labs: Abnormal Lab Results - Last 24 Hours (Table) 05/10/20 05/10/20 05/11/20 Range/Units 09:55 15:41 07:12 WBC 28.0 H 26.1 H (3.8-10.6) k/uL RBC 3.74 L 3.50 L (4.30-5.90) m/uL Hgb 10.3 L 9.5 L (13.0-17.5) gm/dL Hct 34.0 L 31.6 L (39.0-53.0) % MCHC 30.3 L 30.2 L (31.0-37.0) g/dL RDW 23.4 H 23.2 H (11.5-15.5) % Plt Count 890 H 779 H (150-450) k/uL Neutrophils # (Manual) 25.40 H (1.3-7.7) k/uL Lymphocytes # (Manual) 0.28 L (1.0-4.8) k/uL Monocytes # (Manual) 1.68 H (0-1.0) k/uL Metamyelocytes # (Man) 0.84 H (0) k/uL Nucleated RBCs 1 H (0-0) /100 WBC Chloride (98-107) mmol/L Carbon Dioxide (22-30) mmol/L BUN (9-20) mg/dL Creatinine (0.66-1.25) mg/dL Glucose (74-99) mg/dL Calcium (8.4-10.2) mg/dL Total Bilirubin (0.2-1.3) mg/dL Total Protein (6.3-8.2) g/dL Albumin (3.5-5.0) g/dL Urine Protein Trace H (Negative) 05/11/20 Range/Units 07:12 WBC (3.8-10.6) k/uL RBC (4.30-5.90) m/uL Hgb (13.0-17.5) gm/dL Hct (39.0-53.0) % MCHC (31.0-37.0) g/dL RDW (11.5-15.5) % Plt Count (150-450) k/uL Neutrophils # (Manual) (1.3-7.7) k/uL Lymphocytes # (Manual) (1.0-4.8) k/uL Monocytes # (Manual) (0-1.0) k/uL Metamyelocytes # (Man) (0) k/uL Nucleated RBCs (0-0) /100 WBC Chloride 118 H (98-107) mmol/L Carbon Dioxide 19 L (22-30) mmol/L BUN 35 H (9-20) mg/dL Creatinine 1.67 H (0.66-1.25) mg/dL Glucose 105 H (74-99) mg/dL Calcium 8.1 L (8.4-10.2) mg/dL Total Bilirubin 1.4 H (0.2-1.3) mg/dL Total Protein 4.8 L (6.3-8.2) g/dL Albumin 2.5 L (3.5-5.0) g/dL Urine Protein (Negative)
[2020-05-11] MEDS: DONEPEZIL 5 MG TAB PO SCH ×2 (21:22→22:09)
[2020-05-11] MEDS: METOPROLOL TARTRATE 25 MG TAB PO SCH ×2 (21:33→22:09)
[2020-05-12] MEDS: DILTIAZEM 125 MG in SODIUM CHLORIDE 0.9% 100 ML IV SCH (06:24)
[2020-05-12] MEDS: ANAGRELIDE HCL 1 MG PO SCH (09:42)
[2020-05-12] MEDS: PANTOPRAZOLE 40 MG/10 ML VIAL IVP SCH (09:42)
[2020-05-12] MEDS: ATORVASTATIN 20 MG TAB PO SCH (09:46)
[2020-05-12] MEDS: allopurinoL 300 MG TAB PO SCH (09:46)
[2020-05-12] MEDS: SODIUM BICARBONATE TAB 650 MG TAB PO SCH ×3 (09:46→20:56)
[2020-05-12] MEDS: LINAGLIPTIN 5 MG TABLET PO SCH (09:46)
[2020-05-12] MEDS: METOPROLOL TARTRATE 25 MG TAB PO SCH ×2 (09:46→20:57)
[2020-05-12] MEDS: GABAPENTIN 300 MG CAP PO SCH ×2 (09:46→20:57)
--- NOTE | 2020-05-12 11:11 | P.PN ---
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 Patient was recently hospitalized in March for acute kidney injury, acute hypoxic respiratory failure due to left lower lobe pneumonia and acute systolic heart failure. Patient had an ER visit on April 18 after a slip and fall from his recliner. Patient was found by his crawling on the bedroom floor with dark stool. Patient denies having any falls but patient is a poor historian. He denies having any abdominal pain. He denies pain anywhere, no headache. He apparently was complaining of abdominal pain. Has not been eating or drinking well for the last couple days. Patient was brought into [facility] emergency center for evaluation. He was afebrile, heart rate 154, blood pressure 127/83, pulse ox 97% on room air. EKG was atrial fibrillation with RVR. Patient was started on Cardizem drip and morphine one dose given. WBC 33.5, hemoglobin 12.2, platelet count 996. INR 1.3. Sodium 145, potassium 4.5, chloride 112, CO2 22, BUN 39 and creatinine 1.74, blood sugar 145. Stool for occult blood positive. Lactic acid 1.7. ProBNP 21,300. Magnesium 2.4. Total bilirubin 2.2. Chest x-ray shows moderate right pleural effusion with adjacent atelectasis and/or consolidation. CAT scan of the chest abdomen and pelvis revealed moderate right pleural effusion. Lobular appearance to the spleen. Some underlying cyst present. Underlying masses are not excluded. This could be related to prior trauma present in 2018. Diverticulosis without acute diverticulitis. CAT scan of the brain revealed hypodensity in the subcortical left occipital lobe. This could be old but an interval finding from August 2019. Differential diagnosis could include underlying mass with vasogenic edema. MRI recommended. Chronic appearing. Ventricular white matter ischemic changes with age-related atrophy. CAT scan of cervical spine revealed degenerative disc changes and foraminal stenosis. Right apical pleural fluid. Patient is seen today in the emergency center waiting for a cardiac stepdown bed. He remains on Cardizem drip, eliquis and aspirin on hold, consults requested with cardiology for A. fib with RVR, Dr. Platt for COPD, GI for GI bleed. 05/11: Patient has been seen by cardiology with plan to continue IV Cardizem while patient is nothing by mouth status. Eliquis remains on hold. Patient has been seen by GI with plan for EGD today. EGD reveals multiple duodenal ulcers and duodenal bulb , one of which had a visible vessel with some oozing status post Endo Clip placement with good stasis. Mild antral gastritis and reflux esophagitis. Plan is to continue Protonix 40 mg twice daily and advance diet as tolerated.repeat hemoglobin is 9.5. BUN 35 and creatinine 1.67, CO2 19. Total bilirubin 1.4, LFT normal. MRI of the brain revealed no acute abnormality. Age related changes of atrophy and chronic small vessel ischemia. Patient has been evaluated by therapies and recommend 24 hour care or subacute rehab. Blood pressure has remained on the low side 96/58, he has been afebrile, heart rate in the 80s and 90s, pulse ox 96% on 3 L nasal cannula. 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 Patient's mental status is much improved from yesterday. No diarrhea, no stools. Patient's is planning for patient to return home with homecare. 05/12: Patient has not had a bowel movement overnight. He has been afebrile, heart rate 105, blood pressure 118/63, pulse ox 92% on 3 L nasal cannula. Patient was unable to cooperate for blood draws this morning and will reorder for tomorrow. Patient pulled IV out this morning. We will discontinue Cardizem drip, change IV Protonix to oral. Anticipate possible discharge home tomorrow. REVIEW OF SYSTEMS Constitutional: No fever, no chills, no night sweats. No weight change. Reports weakness, Reports fatigue Reports lethargy. Noted daytime sleepiness. EENT: No headache. No double vision, no loss of vision. No loss of Hearing, no dizziness. No nasal drainage or congestion. No epistaxis. No sore throat. Lungs: No shortness of breath, cough, no sputum production. No wheezing. Cardiovascular: No chest pain, no lower extremity edema. No palpitations. No paroxysmal nocturnal dyspnea. No orthopnea. No lightheadedness or dizziness. No syncopal episodes. Abdominal: No abdominal pain. No nausea, vomiting. No diarrhea. No const ipation. No bloody or tarry stools. Reported loss of appetite. Genitourinary: No dysuria, increased frequency, urgency. No urinary retention. Musculoskeletal: No myalgias. Reports muscle weakness, reports gait dysfunction, reports frequent falls. No back pain. No neck pain. Integumentary: No wounds, reports lesions. No rash or pruritus. Noted bruising. Neurologic: No aphasia. No facial droop. No change in mentation-chronic. Poor short-term memory. No head injury. No headache. No paralysis. No paresthesia. Psychiatric: No depression. No anxiety. Endocrine: No abnormal blood sugars. No weight change. PHYSICAL EXAMINATION HEENT: Head is atraumatic, normocephalic, pupils were equal round reactive to light and accommodation, extraocular muscle movement were intact, sclera nonicteric, conjunctivae were. Neck: Supple, no JVD, decreased carotid upstroke bilaterally. Chest: Decreased breath sounds at the bases, few rhonchi and expiratory wheezes no chest wall tenderness no intercostal retractions. Heart: First heart sound is depressed, second heart sound is normal, irregularly irregular, there is systolic murmur 2/6 located in the left sternal border. Abdomen: Soft, nontender, nondistended, positive bowel sounds. Extremities: +1 edema right, no edema left, no calf tenderness, dorsalis pedis +1 bilaterally. Patient has a lesion on the right pretibial area that is questionable for cancer. Patient also has onychomycosis but laterally with fungal infection of the left foot. Neurologic examination: Patient is awake alert and oriented 2, cranial nerves 3-12 appear grossly intact, muscle power were 4 out of 5 in upper extremities and 3 out of 5 in bilateral lower extremities ASSESSMENT AND PLAN 1. Chronic atrial fibrillation presented with A. fib with RVR. Discontinue Cardizem drip. He will be resumed on metoprolol 25 mg twice daily. Cardiology consult appreciated. 2. Acute GI bleed secondary to duodenal ulcer status post Endoclip with acute blood loss anemia but not requiring transfusion. Eliquis and aspirin placed on hold. GI consult. Protonix 40 mg po twice daily. EGD as above. 3. Chronic hypodensity in the subcortical left occipital lobe. MRI of the brain as above. 4. Metabolic encephalopathy secondary to GIB, back to baseline. 5. Chronic kidney disease stage IIIB. 6. Chronic systolic heart failure. Hold Lasix 40 mg twice daily. 7. Hypertension, hypertensive cardiovascular disease. Hold hydralazine 25 mg 3 times daily today. Patient resumed on Lopressor 50 mg twice daily. 8. History of multilobar pulmonary emboli. Eliquis on hold. 9. Essential thrombocytosis. We will continue with anagrelide 1 mg orally twice every day. 10. Chronic gout. Continue allopurinol 300 mg orally once every day. 11. Diabetic peripheral neuropathy. Continue gabapentin 300 mg orally twice every day. 12. Vascular dementia. Continue Aricept 5 mg orally bedtime. 13. Mixed hyperlipidemia. Continue Lipitor 20 mg orally once every day. 14. Spondylosis of the cervical spine. Continue gabapentin 300 mg orally twice every day. 15. Frequent falls. PT and OT evaluations. 16. DVT prophylaxis. JOSE LUIS juane and SCDs. 17. GI prophylaxis. Continue patient on Protonix 40 mg IV push twice daily and CODE STATUS: NO code DISCHARGE PLAN Home with [facility] on Saturday. Impression and plan of care have been directed as dictated by the signing physician. Alexandra Quiles nurse practitioner acting as scribe for signing nannette reza. Objective - Vital Signs Vital signs: Vital Signs Temp 98.1 F 05/12/20 04:00 Pulse 95 05/12/20 04:00 Resp 16 05/12/20 04:00 BP 93/60 05/12/20 04:00 Pulse Ox 95 05/12/20 04:00 Intake & Output 05/11/20 05/12/20 05/12/20 18:59 06:59 18:59 Intake Total 365 Balance 365 Weight 107 kg 108.5 kg Intake: Intake, IV Titration 125 Amount Diltiazem 125 mg In 125 Sodium Chloride 0.9% 100 ml @ 5 MG/HR 5 mls/hr IV .Q24H [facility] Rx#:[id number] Oral 240 Other: Voiding Method Diaper Incontinent # Voids 1 - Labs CBC & Chem 7: 05/11/20 07:12 05/11/20 07:12 Labs: Abnormal Lab Results - Last 24 Hours (Table) 05/11/20 05/11/20 Range/Units 07:12 07:12 WBC 26.1 H (3.8-10.6) k/uL RBC 3.50 L (4.30-5.90) m/uL Hgb 9.5 L (13.0-17.5) gm/dL Hct 31.6 L (39.0-53.0) % MCHC 30.2 L (31.0-37.0) g/dL RDW 23.2 H (11.5-15.5) % Plt Count 779 H (150-450) k/uL Chloride 118 H (98-107) mmol/L Carbon Dioxide 19 L (22-30) mmol/L BUN 35 H (9-20) mg/dL Creatinine 1.67 H (0.66-1.25) mg/dL Glucose 105 H (74-99) mg/dL Calcium 8.1 L (8.4-10.2) mg/dL Total Bilirubin 1.4 H (0.2-1.3) mg/dL Total Protein 4.8 L (6.3-8.2) g/dL Albumin 2.5 L (3.5-5.0) g/dL
[2020-05-12] MEDS: SODIUM CHLORIDE 0.9% 1,000 ML IV SCH (11:48)
[2020-05-12] MEDS: PANTOPRAZOLE 40 MG TABLET PO SCH ×2 (13:12→17:25)
--- NOTE | 2020-05-12 14:15 | P.PN ---
Subjective Progress Note Date: 05/12/20 HISTORY OF PRESENT ILLNESS: This is a pleasant 84-year-old male past medical history significant for chronic persistent atrial fibrillation, carotid stenosis with stent pl acement, hypertension, dyslipidemia, chronic systolic heart failure, chronic kidney disease, TIA, history of PE and dementia. She recalls that he follows with a manager quality systems but is not able to remember the name or location. Previous documentation indicates he follows with a manager quality systems out of town. We have been asked to see in consultation for atrial fibrillation. He is a poor historian, information is obtained from the medical record and nursing staff. His apparently found him crawling around on the floor complaining of abdominal pain with evidence of dark stools. He has been seen in consultation by GI service and is scheduled to undergo an EGD today. He is seen and examined sitting up in bed in no acute distress. He has no symptoms of chest discomfort, shortness of breath, dizziness or palpitations. EKG on arrival revealed atrial fibrillation with rapid ventricular rate. He was started on Cardizem infusion. Eliquis is currently on hold pending EGD. Chest x-ray reveals a right pleural effusion. CT of the abdomen and pelvis reveals a globular looking spleen with some underlying cysts present and diverticulosis without acute diverticulitis. Laboratory data reviewed, WBC 33.5 on admission repeat today 26.1, hemoglobin on admission was 12.2 repeat today 9.5, platelets 779, sodium 143, potassium 4.6, creatinine 1.67, magnesium 2.4, NT proBNP 21,300. Current daily cardiac medications include hydralazine 25 mg 3 times a day, Lopressor 50 mg twice a day, Lasix 40 mg twice a day, atorvastatin 20 mg daily, aspirin 81 mg daily and Eliquis 2.5 mg daily. Most recent echocardiogram obtained January 2020 revealed impaired LV systolic function with ejection fraction 40-45%, mild MR, mild TR and mild pulmonary hypertension with an RVSP of 42 mmHg. 05/12/2020 patient is status post EGD revealing multiple duodenal ulcers. Eliquis remains on hold. Patient remains in atrial fibrillation with heart rate in the 90s. Per nursing, patient has not received his medications this morning. PHYSICAL EXAM: VITAL SIGNS: Reviewed. GENERAL: Well-developed in no acute distress. NECK: Supple. No JVD or thyromegaly LUNGS: Respirations even and unlabored. Lungs essentially clear to auscultation bilaterally. HEART: irregular rate and rhythm. S1 and S2 heard. systolic murmur noted EXTREMITIES: Normal range of motion. No clubbing or cyanosis. Peripheral pulses intact. trace bilateral lower extremity edema ASSESSMENT: Acute GI bleeding, status post EGD revealing multiple duodenal ulcers Chronic persistent atrial fibrillation with rapid ventricular rate Hypertension multiple duodenal ulcers Dyslipidemia Chronic systolic heart failure Chronic kidney disease History of PE TIA Peripheral vascular disease Dementia PLAN: Continue to hold Eliquis in lieu of EGD findings Continue current dose of metoprolol 25 mg twice a day. Patient mildly tachycardic this morning however he has not received his morning dose of metoprolol. Will continue to monitor heart rate after administration of beta blockers and make adjustments to his medications as needed. Further recommendations pending patient's course Nurse practitioner note has been reviewed by physician. Signing provider agrees with the documented findings, assessment, and plan of care. Objective - Vital Signs Vital signs: Vital Signs Temp 98.5 F 05/12/20 08:00 Pulse 105 H 05/12/20 08:00 Resp 18 05/12/20 08:00 BP 118/63 05/12/20 08:00 Pulse Ox 92 L 05/12/20 08:00 Intake & Output 05/11/20 05/12/20 05/12/20 18:59 06:59 18:59 Intake Total 365 267 Balance 365 267 Weight 107 kg 108.5 kg Intake: Intake, IV Titration 125 27 Amount Diltiazem 125 mg In 125 27 Sodium Chloride 0.9% 100 ml @ 5 MG/HR 5 mls/hr IV .Q24H [facility] Rx#:[id number] Oral 240 240 Other: Voiding Method Diaper Incontinent # Voids 1 - Labs CBC & Chem 7: 05/11/20 07:12 05/11/20 07:12
--- NOTE | 2020-05-12 16:14 | PN ---
PROGRESS NOTE DATE OF SERVICE: May 12, 2020 Patient is an 84-year-old pleasant white male admitted to the hospital with acute GI bleed. He underwent an upper endoscopy yesterday and revealed three large duodenal ulcers, one of which had a visible vessel with active bleeding and Endoclip was placed. The patient is doing better. Eliquis is on hold. He had no further episodes of bleeding. His hemoglobin is stable at 9.5 g/dL. PHYSICAL EXAMINATION: Appears comfortable. No apparent distress. VITAL SIGNS: Stable. Blood pressure is 118/63, pulse rate 105. Temperature 98.5. HEENT examination unremarkable. Conjunctivae pink. Sclerae anicteric. Oral cavity no lesions. NECK: No JVD or lymph node enlargement. CHEST was clear to auscultation. HEART: Regular rate and rhythm. ABDOMEN: Soft. Bowel sounds are positive. No organomegaly. EXTREMITIES: No pedal edema. NEURO: He is alert and oriented x3. No focal deficits. LABS: From today WBC is 26.1, hemoglobin 9.5, platelets 779. BUN is down to 35 and creatinine 1.67. IMPRESSION: 1. Acute upper gastrointestinal bleed status post EGD yesterday that showed 3 duodenal ulcers with a visible vessel status post Endoclip placement. The patient has no further bleeding. He is doing well. Hemoglobin dropped to 9.5 g/dL. No further bleeding noted. 2. Atrial fibrillation on Eliquis, currently on hold. 3. 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 4. History of chronic kidney disease, stage 3. 5. History of congestive heart failure. RECOMMENDATIONS: 1. Continue Protonix 40 mg twice daily. 2. Advance diet as tolerated. 3. Monitor CBC daily and transfuse if the hemoglobin is less than 7. 4. Hold Eliquis for 2-3 days. 5. We will follow with you closely. Thank you for this consultation. MMODL / IJN: [id number] /
[2020-05-12] MEDS: DONEPEZIL 5 MG TAB PO SCH (20:56)
[2020-05-13] MEDS: PANTOPRAZOLE 40 MG TABLET PO SCH (06:40)
[2020-05-13] MEDS ORDERED: METOPROLOL TARTRATE 50 MG TAB PO SCH (09:00)
[2020-05-13] MEDS: GABAPENTIN 300 MG CAP PO SCH (09:14)
[2020-05-13] MEDS: SODIUM BICARBONATE TAB 650 MG TAB PO SCH (09:14)
[2020-05-13] MEDS: ATORVASTATIN 20 MG TAB PO SCH (09:14)
[2020-05-13] MEDS: LINAGLIPTIN 5 MG TABLET PO SCH (09:15)
[2020-05-13] MEDS: allopurinoL 300 MG TAB PO SCH (09:15)
[2020-05-13] MEDS: ANAGRELIDE HCL 1 MG PO SCH (09:16)
[2020-05-13 09:25] VITALS: BP 121/69; PULSE 108; RESP 19; TEMP 97
[2020-05-13 09:28] LABS: Anisocytosis Moderate; HCT 34.9 % (39.0-53.0); HGB 10.6 gm/dL (13.0-17.5); Hypochromasia Marked; MCH 27.5 pg (25.0-35.0); MCHC 30.3 g/dL (31.0-37.0); MCV 90.9 fL (80.0-100.0); Macrocytosis Slight; Mean Platelet Volume 9.1; Microcytosis Slight; Platelet Count 907 k/uL (150-450); Poikilocytosis Slight; RBC 3.84 m/uL (4.30-5.90); RDW 23.2 % (11.5-15.5); WBC 27.8 k/uL (3.8-10.6)
[2020-05-13 09:39] LABS: Albumin 2.7 g/dL (3.5-5.0); Calcium 8.2 mg/dL (8.4-10.2); Potassium 4.9 mmol/L (3.5-5.1); Total Bilirubin 1.4 mg/dL (0.2-1.3); Total Protein 5.2 g/dL (6.3-8.2)
--- NOTE | 2020-05-13 11:39 | P.DS ---
Providers Date of admission: 05/10/20 12:19 Expected date of discharge: 05/13/20 Attending physician: Laurita Sandra Consults: 05/10/20 12:20 Consult Physician Routine Consulting Provider: Dino Orellana Consult Reason/Comments: A. fib with RVR Do you want consulting provider notified?: Yes 05/10/20 13:31 Consult Physician Routine Consulting Provider: Ann Marie Mary Consult Reason/Comments: GIB Do you want consulting provider notified?: Yes Primary care physician: Laurita Sandra Hospital Course: HISTORY OF PRESENT ILLNESS This is an 84-year-old male one of my patient with a previous medical history significant for hypertension and hypertensive cardiovascular disease, hyperlipidemia, chronic kidney disease stage III, history of essential thro mbocytosis transitioned from Hydrea to Anagrelide, TIA 3, vascular dementia, diabetes mellitus type 2, diabetic neuropathy, peripheral arterial disease, skin cancer, severe spondylosis of the cervical spine, chronic atrial fibrillation on eliquis for anticoagulation, diagnosed with multilobar pulmonary emboli in August 2019, it was doubtful for whether or not to keep the patient on anticoagulation because of recurrent falls and increased risk of bleeding, eventually the decision was made to keep the patient on eliquis. Patient was recently hospitalized in March for acute kidney injury, acute hypoxic respiratory failure due to left lower lobe pneumonia and acute systolic heart failure. Patient had an ER visit on April 18 after a slip and fall from his recliner. Patient was found by his crawling on the bedroom floor with dark stool. Patient denies having any falls but patient is a poor historian. He denies having any abdominal pain. He denies pain anywhere, no headache. He apparently was complaining of abdominal pain. Has not been eating or drinking well for the last couple days. Patient was brought into [facility] emergency center for evaluation. He was afebrile, heart rate 154, blood pressure 127/83, pulse ox 97% on room air. EKG was atrial fibrillation with RVR. Patient was started on Cardizem drip and morphine one dose given. WBC 33.5, hemoglobin 12.2, platelet count 996. INR 1.3. Sodium 145, potassium 4.5, chloride 112, CO2 22, BUN 39 and creatinine 1.74, blood sugar 145. Stool for occult blood positive. Lactic acid 1.7. ProBNP 21,300. Magnesium 2.4. Total bilirubin 2.2. Chest x-ray shows moderate right pleural effusion with adjacent atelectasis and/or consolidation. CAT scan of the chest abdomen and pelvis revealed moderate right pleural effusion. Lobular appearance to the spleen. Some underlying cyst present. Underlying masses are not excluded. This could be related to prior trauma present in 2018. Diverticulosis without acute diverticulitis. CAT scan of the brain revealed hypodensity in the subcortical left occipital lobe. This could be old but an interval finding from August 2019. Differential diagnosis c ould include underlying mass with vasogenic edema. MRI recommended. Chronic appearing. Ventricular white matter ischemic changes with age-related atrophy. CAT scan of cervical spine revealed degenerative disc changes and foraminal stenosis. Right apical pleural fluid. Patient is seen today in the emergency center waiting for a cardiac stepdown bed. He remains on Cardizem drip, eliquis and aspirin on hold, consults requested with cardiology for A. fib with RVR, Dr. Platt for COPD, GI for GI bleed. 05/11: Patient has been seen by cardiology with plan to continue IV Cardizem while patient is nothing by mouth status. Eliquis remains on hold. Patient has been seen by GI with plan for EGD today. EGD reveals multiple duodenal ulcers and duodenal bulb , one of which had a visible vessel with some oozing status post Endo Clip placement with good stasis. Mild antral gastritis and reflux esophagitis. Plan is to continue Protonix 40 mg twice daily and advance diet as tolerated.repeat hemoglobin is 9.5. BUN 35 and creatinine 1.67, CO2 19. Total bilirubin 1.4, LFT normal. MRI of the brain revealed no acute abnormality. Age related changes of atrophy and chronic small vessel ischemia. Patient has been evaluated by therapies and recommend 24 hour care or subacute rehab. Blood pressure has remained on the low side 96/58, he has been afebrile, heart rate in the 80s and 90s, pulse ox 96% on 3 L nasal cannula. customer technical services manager has been atrial fibrillation with controlled rate. Patient's mental status is much improved from yesterday. No diarrhea, no stools. Patient's is planning for patient to return home with homecare. 05/12: Patient has not had a bowel movement overnight. He has been afebrile, heart rate 105, blood pressure 118/63, pulse ox 92% on 3 L nasal cannula. Nataliia ent was unable to cooperate for blood draws this morning and will reorder for tomorrow. Patient pulled IV out this morning. We will discontinue Cardizem drip, change IV Protonix to oral. Anticipate possible discharge home tomorrow. 05/13: Patient has been afebrile, heart rate 103, blood pressure 106/62, pulse ox at 4 AM was 88% and now 93% on 3 L. Repeat blood work reveals hemoglobin of 10.6. Patient has not had a bowel movement since admission. There was a discussion regarding hospice care and patient is appropriate for this which the family will make arrangements when they're ready. Patient has ambulated on the hallway and has done well. Patient will be discharged home today in stable condition. ASSESSMENT AND PLAN 1. Chronic atrial fibrillation presented with A. fib with RVR. 2. Acute GI bleed secondary to duodenal ulcer status post Endoclip with acute blood loss anemia but not requiring transfusion. 3. Chronic hypodensity in the subcortical left occipital lobe. 4. Metabolic encephalopathy secondary to GIB, back to baseline. 5. Chronic kidney disease stage IIIB. 6. Chronic systolic heart failure. 7. Hypertension, hypertensive cardiovascular disease. 8. History of multilobar pulmonary emboli. 9. Essential thrombocytosis. 10. Chronic gout. 11. Diabetic peripheral neuropathy. 12. Vascular dementia. 13. Mixed hyperlipidemia. 14. Spondylosis of the cervical spine. 15. Frequent falls. DISCHARGE PLAN Home with [facility]. Impression and plan of care have been directed as dictated by the signing physician. Alexandra Quiles nurse practitioner acting as scribe for signing physician. Patient Condition at Discharge: Good Plan - Discharge Summary New Discharge Prescriptions: Continue EPINEPHrine (Auto Inject) [Epipen] 0.3 mg IM ONCE PRN PRN Reason: Anaphylaxis Gabapentin [Neurontin] 300 mg PO BID Atorvastatin Calcium [Lipitor] 20 mg PO DAILY Anagrelide HCl 1 mg PO DAILY Linagliptin [Tradjenta] 5 mg PO DAILY Metoprolol Tartrate [Lopressor] 50 mg PO BID Sodium Bicarbonate Tab 650 mg PO TID #90 tab Donepezil [Aricept] 5 mg PO HS Allopurinol [Zyloprim] 300 mg PO DAILY Changed Pantoprazole Sodium [Protonix] 40 mg PO AC-BID #60 tab Furosemide [Lasix] 40 mg PO MOWEFR #0 Discontinued Apixaban [Eliquis] 2.5 mg PO BID #60 tablet Aspirin [Adult Low Dose Aspirin EC] 81 mg PO DAILY hydrALAZINE HCL [Apresoline] 25 mg PO TID Discharge Medication List EPINEPHrine (Auto Inject) [Epipen] 0.3 mg IM ONCE PRN 01/06/17 [History] Gabapentin [Neurontin] 300 mg PO BID 06/13/17 [History] Atorvastatin Calcium [Lipitor] 20 mg PO DAILY 08/14/19 [History] Anagrelide HCl 1 mg PO DAILY 02/07/20 [History] Linagliptin [Tradjenta] 5 mg PO DAILY 03/31/20 [History] Metoprolol Tartrate [Lopressor] 50 mg PO BID 03/31/20 [History] Sodium Bicarbonate Tab 650 mg PO TID #90 tab 04/05/20 [Rx] Donepezil [Aricept] 5 mg PO HS 04/14/20 [History] Allopurinol [Zyloprim] 300 mg PO DAILY 04/18/20 [History] Furosemide [Lasix] 40 mg PO MOWEFR #0 05/13/20 [Rx] Pantoprazole Sodium [Protonix] 40 mg PO AC-BID #60 tab 05/13/20 [Rx] Follow up Appointment(s)/Referral(s): [facility], [NON-STAFF] - Pedro Mary MD [STAFF PHYSICIAN] - 2 Weeks Laurita Sandra MD [Primary Care Provider] - 1 Week Discharge Disposition: HOME WITH HOME HEALTH SERVICES
--- NOTE | 2020-05-13 12:53 | P.PN ---
Subjective Progress Note Date: 05/13/20 HISTORY OF PRESENT ILLNESS: This is a pleasant 84-year-old male past medical history significant for chronic persistent atrial fibrillation, carotid stenosis with stent pl acement, hypertension, dyslipidemia, chronic systolic heart failure, chronic kidney disease, TIA, history of PE and dementia. She recalls that he follows with a manual control auger press operator but is not able to remember the name or location. Previous documentation indicates he follows with a manual control auger press operator out of town. We have been asked to see in consultation for atrial fibrillation. He is a poor historian, information is obtained from the medical record and nursing staff. His apparently found him crawling around on the floor complaining of abdominal pain with evidence of dark stools. He has been seen in consultation by GI service and is scheduled to undergo an EGD today. He is seen and examined sitting up in bed in no acute distress. He has no symptoms of chest discomfort, shortness of breath, dizziness or palpitations. EKG on arrival revealed atrial fibrillation with rapid ventricular rate. He was started on Cardizem infusion. Eliquis is currently on hold pending EGD. Chest x-ray reveals a right pleural effusion. CT of the abdomen and pelvis reveals a globular looking spleen with some underlying cysts present and diverticulosis without acute diverticulitis. Laboratory data reviewed, WBC 33.5 on admission repeat today 26.1, hemoglobin on admission was 12.2 repeat today 9.5, platelets 779, sodium 143, potassium 4.6, creatinine 1.67, magnesium 2.4, NT proBNP 21,300. Current daily cardiac medications include hydralazine 25 mg 3 times a day, Lopressor 50 mg twice a day, Lasix 40 mg twice a day, atorvastatin 20 mg daily, aspirin 81 mg daily and Eliquis 2.5 mg daily. Most recent echocardiogram obtained January 2020 revealed impaired LV systolic function with ejection fraction 40-45%, mild MR, mild TR and mild pulmonary hypertension with an RVSP of 42 mmHg. 05/12/2020 patient is status post EGD revealing multiple duodenal ulcers. Eliquis remains on hold. Patient remains in atrial fibrillation with heart rate in the 90s. Per nursing, patient has not received his medications this morning. 05/13/2020 Patient remains in atrial fibrillation with uncontrolled ventricular rate. Heart rate currently 110 at time of examination. He is currently on metoprolol 25 mg twice a day. His Eliquis remains on hold secondary to multiple ulcers visualized on EGD. PHYSICAL EXAM: VITAL SIGNS: Reviewed. GENERAL: Well-developed in no acute distress. NECK: Supple. No JVD or thyromegaly LUNGS: Respirations even and unlabored. Lungs essentially clear to auscultation bilaterally. HEART: irregular rate and rhythm. S1 and S2 heard. systolic murmur noted EXTREMITIES: Normal range of motion. No clubbing or cyanosis. Peripheral pulses intact. trace bilateral lower extremity edema ASSESSMENT: Acute GI bleeding, status post EGD revealing multiple duodenal ulcers Chronic persistent atrial fibrillation with rapid ventricular rate Hypertension multiple duodenal ulcers Dyslipidemia Chronic systolic heart failure Chronic kidney disease History of PE TIA Peripheral vascular disease Dementia PLAN: Continue to hold Eliquis in lieu of EGD findings Increase metoprolol to 50 mg twice a day Continue telemetry monitoring Further recommendations pending patient's course Nurse practitioner note has been reviewed by physician. Signing provider agrees with the documented findings, assessment, and plan of care. Objective - Vital Signs Vital signs: Vital Signs Temp 97 F L 05/13/20 08:20 Pulse 108 H 05/13/20 08:20 Resp 19 05/13/20 08:20 BP 121/69 05/13/20 08:20 Pulse Ox 95 05/13/20 08:20 Intake & Output 05/12/20 05/13/20 05/13/20 18:59 06:59 18:59 Intake Total 747 0 Balance 747 0 Weight 110 kg Intake: Intake, IV Titration 27 Amount Diltiazem 125 mg In 27 Sodium Chloride 0.9% 100 ml @ 5 MG/HR 5 mls/hr IV .Q24H [facility] Rx#:[id number] Oral 720 0 Other: Voiding Method Diaper Diaper Incontinent Incontinent # Voids 1 1 2 - Labs CBC & Chem 7: 05/13/20 08:56 05/13/20 08:56 Labs: Abnormal Lab Results - Last 24 Hours (Table) 05/13/20 05/13/20 Range/Units 08:56 08:56 WBC 27.8 H (3.8-10.6) k/uL RBC 3.84 L (4.30-5.90) m/uL Hgb 10.6 L (13.0-17.5) gm/dL Hct 34.9 L (39.0-53.0) % MCHC 30.3 L (31.0-37.0) g/dL RDW 23.2 H (11.5-15.5) % Plt Count 907 H (150-450) k/uL Chloride 115 H (98-107) mmol/L Carbon Dioxide 17 L (22-30) mmol/L BUN 33 H (9-20) mg/dL Creatinine 1.68 H (0.66-1.25) mg/dL Calcium 8.2 L (8.4-10.2) mg/dL Total Bilirubin 1.4 H (0.2-1.3) mg/dL Total Protein 5.2 L (6.3-8.2) g/dL Albumin 2.7 L (3.5-5.0) g/dL
== END 2020-05-13 13:23 | disposition home health service (06) | DRG 377 ==
LOC: EC 09:20 → 3SCARD 12:19
PROVIDERS: ADMIT Internal Medicine; ATTEND Internal Medicine
PROC: 0W3P8ZZ Control Bleeding in Gastrointestinal Tract, Via Natural or Artificial Opening Endoscopic (ICD-10-PCS; principal; 2020-05-11 07:30)
PROC: 0DB78ZX Excision of Stomach, Pylorus, Via Natural or Artificial Opening Endoscopic, Diagnostic (ICD-10-PCS; 2020-05-11 07:30)
DX: K26.4 Chronic or unspecified duodenal ulcer with hemorrhage (principal); G93.41 Metabolic encephalopathy; I13.0 Hypertensive heart and chronic kidney disease with heart failure and stage 1 through stage 4 chronic kidney disease, or unspecified chronic kidney disease; I50.22 Chronic systolic (congestive) heart failure; D62 Acute posthemorrhagic anemia; I48.19 Other persistent atrial fibrillation; I27.20 Pulmonary hypertension, unspecified; E11.22 Type 2 diabetes mellitus with diabetic chronic kidney disease; D63.1 Anemia in chronic kidney disease; F01.50 Vascular dementia, unspecified severity, without behavioral disturbance, psychotic disturbance, mood disturbance, and anxiety; E11.42 Type 2 diabetes mellitus with diabetic polyneuropathy; E11.51 Type 2 diabetes mellitus with diabetic peripheral angiopathy without gangrene; N18.32 Chronic kidney disease, stage 3b; M06.9 Rheumatoid arthritis, unspecified; D47.3 Essential (hemorrhagic) thrombocythemia; J44.9 Chronic obstructive pulmonary disease, unspecified; K29.60 Other gastritis without bleeding; K21.00 Gastro-esophageal reflux disease with esophagitis, without bleeding; M47.812 Spondylosis without myelopathy or radiculopathy, cervical region; E78.2 Mixed hyperlipidemia; M48.02 Spinal stenosis, cervical region; K57.90 Diverticulosis of intestine, part unspecified, without perforation or abscess without bleeding; M1A.9XX0 Chronic gout, unspecified, without tophus (tophi); I08.1 Rheumatic disorders of both mitral and tricuspid valves; R16.1 Splenomegaly, not elsewhere classified; R29.6 Repeated falls; R32 Unspecified urinary incontinence; F10.11 Alcohol abuse, in remission; Z52.4 Kidney donor; Z85.828 Personal history of other malignant neoplasm of skin; Z79.01 Long term (current) use of anticoagulants; Z79.82 Long term (current) use of aspirin; Z79.84 Long term (current) use of oral hypoglycemic drugs; Z79.899 Other long term (current) drug therapy; Z86.19 Personal history of other infectious and parasitic diseases; Z86.73 Personal history of transient ischemic attack (TIA), and cerebral infarction without residual deficits; Z86.711 Personal history of pulmonary embolism; Z96.643 Presence of artificial hip joint, bilateral; Z98.41 Cataract extraction status, right eye; Z96.1 Presence of intraocular lens; Z95.828 Presence of other vascular implants and grafts; Z86.79 Personal history of other diseases of the circulatory system; Z86.718 Personal history of other venous thrombosis and embolism; Z87.440 Personal history of urinary (tract) infections; Z90.89 Acquired absence of other organs; Z87.19 Personal history of other diseases of the digestive system; Z87.09 Personal history of other diseases of the respiratory system; Z87.01 Personal history of pneumonia (recurrent); Z98.890 Other specified postprocedural states; Z88.8 Allergy status to other drugs, medicaments and biological substances; Z91.030 Bee allergy status; Z82.3 Family history of stroke; Z82.49 Family history of ischemic heart disease and other diseases of the circulatory system; Z82.71 Family history of polycystic kidney; Z83.3 Family history of diabetes mellitus
CPT/HCPCS: 36415; 43239; 43255; 70450; 70553; 71045; 71250; 72125; 74176; 80053; 81003; 82272; 83605; 83735; 83880; 85025; 85027; 85610; 85730; 86850; 86900; 86901; 88305; 93005; 96361; 96374; 96375; 99291

== ENCOUNTER 2020-06-07 10:55 | Emergency (ER) | payer MEDICARE ==
[2020-06-07 11:09] VITALS: BP 93/64; PULSE 55; RESP 16; TEMP 98.3
[2020-06-07] MEDS ORDERED: SODIUM CHLORIDE 0.9% 1,000 ML IV STA (11:16)
--- NOTE | 2020-06-07 11:17 | ED ---
Nausea/Vomiting/Diarrhea HPI - General Stated complaint: pain all over Time Seen by Provider: 06/07/20 11:03 Source: family, EMS, RN notes reviewed Mode of arrival: EMS Limitations: altered mental status (Dementia) - History of Present Illness Initial comments: Patient is an 84-year-old male that presents to emergency room via the EMS due to diarrhea. EMS notes stated that she is unable to care for her anymore home due to his dementia and ongoing health competitions. EMS did mention that hospice was supposed to come out today to admit him to hospice but is unsure of patient's status at this point. He notes that patient agrees to most questions and is confused. EMS also noted his heart rate was variable between 140 and as low as 50s. Patient was seen while laying in bed in what appeared to be. He did deny any pain several times when asked. EMS notes that states that patient has been having diarrhea for approximately last month. She notes that the last thing he ate was a few sips were protein shake. Unable to obtain review of systems due to patient's mental status. - Related Data Home Medications Medication Instructions Recorded Confirmed EPINEPHrine (Auto Inject) [Epipen] 0.3 mg IM ONCE PRN 01/06/17 06/07/20 Gabapentin [Neurontin] 300 mg PO BID 06/13/17 06/07/20 Atorvastatin Calcium [Lipitor] 20 mg PO DAILY 08/14/19 06/07/20 Anagrelide HCl 1 mg PO DAILY 02/07/20 06/07/20 Linagliptin [Tradjenta] 5 mg PO DAILY 03/31/20 06/07/20 Metoprolol Tartrate [Lopressor] 50 mg PO BID 03/31/20 06/07/20 Donepezil [Aricept] 5 mg PO HS 04/14/20 06/07/20 Allopurinol [Zyloprim] 300 mg PO DAILY 04/18/20 06/07/20 Previous Rx's Medication Instructions Recorded Sodium Bicarbonate Tab 650 mg PO TID #90 tab 04/05/20 Furosemide [Lasix] 40 mg PO MOWEFR #0 05/13/20 Pantoprazole Sodium [Protonix] 40 mg PO AC-BID #60 tab 05/13/20 Allergies Allergy/AdvReac Type Severity Reaction Status Date / Time venom-honey bee Allergy Anaphylaxis Verified 06/07/20 12:54 [bee venom (honey bee)] rivastigmine AdvReac Rash/Hives Verified 06/07/20 12:54 Review of Systems ROS Statement: Those systems with pertinent positive or pertinent negative responses have been documented in the HPI. ROS Other: All systems not noted in ROS Statement are negative. 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, UTI, gout, PAD, diverticular disease, skin cancer with removals and has more skin cancer to be removed from top of L ear, severe spondylosis of cervical spine, chonic back/cervical pain, rheumatic fever as a child History of Any Multi-Drug Resistant Organisms: None Reported Past Surgical History: Adenoidectomy, Hernia Repair, Joint Replacement, Orthopedic Surgery, Tonsillectomy Additional Past Surgical History / Comment(s): R kidney donor, kiesha hip rep lacement, L hand trigger finger, uvuloplasty, left carotid stent, L inguinal hernia repair, deviated septum repair, colonoscopy, R cataract removal with lens, skin cancer removals, pain procedures. Past Anesthesia/Blood Transfusion Reactions: No Reported Reaction Past Psychological History: No Psychological Hx Reported Smoking Status: Never smoker Past Alcohol Use History: Occasional Past Drug Use History: None Reported - Past Family History Father Family Medical History: CVA/TIA Additional Family Medical History / Comment(s): Father of a CVA at the age of 80yrs. Mother Family Medical History: No Reported History Additional Family Medical History / Comment(s): Mother at age 55 from polycystic kidney disease. Brother(s) Additional Family Medical History / Comment(s): Patient has 1 brother with multiple medical problems including diabetes. Sister(s) Family Medical History: Renal Disease Additional Family Medical History / Comment(s): Patient has one sister that at age 60 from kidney failure due to polycystic kidney disease. Daughter(s) Family Medical History: No Reported History Additional Family Medical History / Comment(s): Patient has one daughter with no major medical problems. Son(s) Additional Family Medical History / Comment(s): Patient has 5 sons. 2 at premature . One while skiing from a myocardial infarction at age 32. One son is alive with no major medical problems. General Exam Limitations: altered mental status (Dementia) General appearance: alert, in distress, other (Patient had several brief through the sheet.) Head exam: Present: atraumatic, normocephalic, normal inspection Eye exam: Present: normal appearance, PERRL, EOMI. Absent: scleral icterus, conjunctival injection, periorbital swelling Neck exam: Present: normal inspection. Absent: tenderness, meningismus, lymphadenopathy Respiratory exam: Present: normal lung sounds bilaterally. Absent: respiratory distress, wheezes, rales, rhonchi, stridor Cardiovascular Exam: Present: regular rate, normal rhythm, normal heart sounds. Absent: systolic murmur, diastolic murmur, rubs, gallop, clicks GI/Abdominal exam: Present: soft, normal bowel sounds. Absent: distended, tenderness, guarding, rebound, rigid Extremities exam: Present: normal inspection, full ROM, normal capillary refill. Absent: tenderness, pedal edema, joint swelling, calf tenderness Neurological exam: Present: alert, altered (Due to dementia) Psychiatric exam: Present: normal mood Skin exam: Present: warm, dry, intact, normal color. Absent: rash Course Vital Signs 06/07/20 11:01 Temperature 98.3 F Pulse Rate 55 L Respiratory 16 Rate Blood Pressure 93/64 O2 Sat by Pulse 99 Oximetry Medical Decision Making - Medical Decision Making 84-year-old male presents emergency department via EMS with diarrhea and dementia. EMS states that told that he's had diarrhea for approximately months, isn't eating and that she is unable to take care of him at this time. Labs, KUB, 1 L normal saline ordered. Labs show dehydration and elevated platelet count. Per patient's family's wishes of not being admitted to the hospital and not wanting a workup due to being on hospice he will be discharged home to family's care. Case discussed with Dr. Farfan, patient discharge - Lab Data Result diagrams: 06/07/20 12:27 06/07/20 12:27 Lab Results 06/07/20 06/07/20 Range/Units 12:27 12:27 WBC 25.2 H (3.8-10.6) k/uL RBC 4.77 (4.30-5.90) m/uL Hgb 12.9 L (13.0-17.5) gm/dL Hct 42.0 (39.0-53.0) % MCV 88.0 (80.0-100.0) fL MCH 26.9 (25.0-35.0) pg MCHC 30.6 L (31.0-37.0) g/dL RDW 21.9 H (11.5-15.5) % Plt Count 1170 H* (150-450) k/uL MPV 8.8 Hypochromasia Marked Poikilocytosis Slight Anisocytosis Moderate Microcytosis Slight Sodium 140 (137-145) mmol/L Potassium 5.8 H (3.5-5.1) mmol/L Chloride 111 H (98-107) mmol/L Carbon Dioxide 22 (22-30) mmol/L Anion Gap 7 mmol/L BUN 31 H (9-20) mg/dL Creatinine 1.52 H (0.66-1.25) mg/dL Est GFR (CKD-EPI)AfAm 48 (>60 ml/min/1.73 sqM) Est GFR (CKD-EPI)NonAf 42 (>60 ml/min/1.73 sqM) Glucose 113 H (74-99) mg/dL Calcium 9.4 (8.4-10.2) mg/dL Total Bilirubin 1.2 (0.2-1.3) mg/dL AST 28 (17-59) U/L ALT 10 (4-49) U/L Alkaline Phosphatase 157 H (38-126) U/L Total Protein 5.7 L (6.3-8.2) g/dL Albumin 3.1 L (3.5-5.0) g/dL Amylase 47 (30-110) U/L Lipase 217 (23-300) U/L - Radiology Data Radiology results: report reviewed, image reviewed KUB: Overall nonobstructive bowel gas pattern Disposition Clinical Impression: Dehydration, Diarrhea, Elevated platelet count Disposition: HOME SELF-CARE Condition: Stable Instructions (If sedation given, give patient instructions): Acute Diarrhea (ED) Additional Instructions: Please return to the Emergency Department if symptoms worsen or any other concerns. Continue hospice care as planned. Is patient prescribed a controlled substance at d/c from ED?: No Referrals: Laurita Sandra MD [Primary Care Provider] - 1-2 days Time of Disposition: 13:35
--- NOTE | 2020-06-07 11:52 | XR ---
EXAMINATION TYPE: XR KUB DATE OF EXAM: 06/07/2020 11:45 AM CLINICAL HISTORY: Abdominal and stomach pain. TECHNIQUE: Two supine KUB images of the abdomen are obtained. COMPARISON: CT May 10, 2020.. FINDINGS: Numerous surgical clips redemonstrated over the right abdomen. Partial visualization of met allic hardware from bilateral hip surgery. Persistent moderate to severe disc space narrowing and spu rring L2-L3 level. Gas seen in nondistended stomach. Some scattered gas in nondistended small and lar ge bowel loops. Scattered bilateral pelvic phleboliths. Gas-filled appendix is suspected in the right upper pelvis. IMPRESSION: Overall nonobstructive bowel gas pattern.
[2020-06-07] MEDS ORDERED: DIPHENOX-ATROP 2.5-0.025 MG 1 EACH TAB PO STA (12:20)
[2020-06-07 13:02] LABS: Albumin 3.1 g/dL (3.5-5.0); Calcium 9.4 mg/dL (8.4-10.2); Potassium 5.8 mmol/L (3.5-5.1); Total Bilirubin 1.2 mg/dL (0.2-1.3); Total Protein 5.7 g/dL (6.3-8.2)
[2020-06-07 13:13] LABS: Anisocytosis Moderate; HGB 12.9 gm/dL (13.0-17.5); Hypochromasia Marked; MCH 26.9 pg (25.0-35.0); MCHC 30.6 g/dL (31.0-37.0); Mean Platelet Volume 8.8; Microcytosis Slight; Poikilocytosis Slight; RBC 4.77 m/uL (4.30-5.90); RDW 21.9 % (11.5-15.5)
[2020-06-07 13:18] LABS: Platelet Count 1170 k/uL (150-450)
[2020-06-07 13:53] LABS: Band Neutrophils % 2 %; Metamyelocytes % 2 %; Myelocytes # (M) 0.25 k/uL (0); Myelocytes % 1 %; Neutrophils % (M) 80 %; Nucleated Red Blood Cells 1 /100 WBC (0-0); Total Cells Counted 200
[2020-06-07 13:54] LABS: Eosinophils # (M) 0.75 k/uL (0-0.7); Large Platelets Present; Lymphocytes # (M) 1.75 k/uL (1.0-4.8); Monocytes # (M) 1.75 k/uL (0-1.0)
--- NOTE | 2020-06-07 14:37 | ED ---
Medical Decision Making - Medical Decision Making case discussed with Dr Shafer. Dr. Sandra will be consulted wishes that pt be admitted. Pts kids called mom to inform them that hospice means comfort care and she agreed to take him back home. Pt was informed of hospice and comfort care. Pt verbalized her understanding of hospice and taking pt home. - Lab Data Result diagrams: 06/07/20 12:27 06/07/20 12: Lab Results 06/07/20 06/07/20 Range/Units 12: 12: WBC 25.0 H (3.8-10.6) k/uL RBC 4.77 (4.30-5.90) m/uL Hgb 12.9 L (13.0-17.5) gm/dL Hct 42.0 (39.0-53.0) % MCV 88.0 (80.0-100.0) fL MCH 26.9 (25.0-35.0) pg MCHC 30.6 L (31.0-37.0) g/dL RDW 21.9 H (11.5-15.5) % Plt Count 1170 H* (150-450) k/uL MPV 8.8 Neutrophils % (Manual) 80 % Band Neuts % (Manual) 2 % Lymphocytes % (Manual) 7 % Monocytes % (Manual) 7 % Eosinophils % (Manual) 3 % Metamyelocytes % 2 % Myelocytes % 1 % Neutrophils # (Manual) 20.50 H (1.3-7.7) k/uL Lymphocytes # (Manual) 1.75 (1.0-4.8) k/uL Monocytes # (Manual) 1.75 H (0-1.0) k/uL Eosinophils # (Manual) 0.75 H (0-0.7) k/uL Metamyelocytes # (Man) 0.50 H (0) k/uL Myelocytes # (Manual) 0.25 H (0) k/uL Nucleated RBCs 1 H (0-0) /100 WBC Manual Slide Review Performed Large Platelets Present Hypochromasia Marked Poikilocytosis Slight Anisocytosis Moderate Microcytosis Slight Sodium 140 (137-145) mmol/L Potassium 5.8 H (3.5-5.1) mmol/L Chloride 111 H (98-107) mmol/L Carbon Dioxide 22 (22-30) mmol/L Anion Gap 7 mmol/L BUN 31 H (9-20) mg/dL Creatinine 1.52 H (0.66-1.25) mg/dL Est GFR (CKD-EPI)AfAm 48 (>60 ml/min/1.73 sqM) Est GFR (CKD-EPI)NonAf 42 (>60 ml/min/1.73 sqM) Glucose 113 H (74-99) mg/dL Calcium 9.4 (8.4-10.2) mg/dL Total Bilirubin 1.2 (0.2-1.3) mg/dL AST 28 (17-59) U/L ALT 10 (4-49) U/L Alkaline Phosphatase 157 H (38-126) U/L Total Protein 5.7 L (6.3-8.2) g/dL Albumin 3.1 L (3.5-5.0) g/dL Amylase 47 (30-110) U/L Lipase 217 (23-300) U/L Disposition Clinical Impression: Dehydration, Diarrhea, Elevated platelet count Disposition: HOME SELF-CARE Condition: Stable Instructions (If sedation given, give patient instructions): Acute Diarrhea (ED) Additional Instructions: Please return to the Emergency Department if symptoms worsen or any other co ncerns. Continue hospice care as planned. Is patient prescribed a controlled substance at d/c from ED?: No Referrals: Laurita Sandra MD [Primary Care Provider] - 1-2 days Time of Disposition: 14:39
== END 2020-06-07 16:00 | disposition home or self-care (01) ==
LOC: EC 10:55
DX: E86.0 Dehydration (principal); D47.3 Essential (hemorrhagic) thrombocythemia; I13.0 Hypertensive heart and chronic kidney disease with heart failure and stage 1 through stage 4 chronic kidney disease, or unspecified chronic kidney disease; I48.0 Paroxysmal atrial fibrillation; I50.9 Heart failure, unspecified; K21.9 Gastro-esophageal reflux disease without esophagitis; M06.9 Rheumatoid arthritis, unspecified; M10.9 Gout, unspecified; N18.9 Chronic kidney disease, unspecified; F03.90 Unspecified dementia, unspecified severity, without behavioral disturbance, psychotic disturbance, mood disturbance, and anxiety; F01.50 Vascular dementia, unspecified severity, without behavioral disturbance, psychotic disturbance, mood disturbance, and anxiety; E78.5 Hyperlipidemia, unspecified; E11.22 Type 2 diabetes mellitus with diabetic chronic kidney disease; Z79.84 Long term (current) use of oral hypoglycemic drugs; Z86.711 Personal history of pulmonary embolism; Z85.828 Personal history of other malignant neoplasm of skin; Z86.718 Personal history of other venous thrombosis and embolism; Z86.73 Personal history of transient ischemic attack (TIA), and cerebral infarction without residual deficits
CPT/HCPCS: 36415; 74018; 80053; 82150; 83690; 85025; 99284